=== PATIENT | male | born 1985 | race Caucasian/White ===

== ENCOUNTER → 2018-07-08 09:36 | Outpatient (CLI) | payer OTHER, SELFPAY ==
[2018-07-08 11:13] LABS: Hematocrit 44.1 % (40-54); Hemoglobin 15.2 g/dl (13.0-16.5); Mean Corp Hgb Conc 34.5 g/gl (32-36); Mean Corpuscular Hgb 32.5 pg (27.0-32.0); Mean Corpuscular Volume 94.2 fL (80-94); Mean Platelet Vol. 12.1 fl (6.2-12.0); Platelet Count 196 K/mm3 (150-450); RBC Distribution Width CV 12.9 % (11.6-14.6); RBC Distribution Width SD 43.6 fl (35.1-43.9); Red Blood Count 4.68 M/mm3 (4.6-6.2); White Blood Count 7.3 K/mm3 (4.4-11.0)
[2018-07-08 11:22] LABS: Scan Indicated on CBC? Y/N NO
[2018-07-08 11:35] LABS: Anion Gap 8 (5-15); BUN 11 mg/dL (7-18); BUN/Creat Ratio 12.4 RATIO (10-20); Calcium,Total 9.4 mg/dL (8.5-10.1); Chloride 108 mmol/L (98-107); Creatinine, Serum 0.89 mg/dL (0.70-1.30); EST Glomerular Filtration Rate 104 mL/min (>60); Est Glom Filt Rate - Afr Amer 125 mL/min (>60); Glucose 120 mg/dL (74-106); Potassium 4.2 mmol/L (3.5-5.1); Sodium Level 139 mmol/L (136-145)
== END ==
PROVIDERS: Family Provider Family Medicine; PCP Family Medicine; Visit Provider Orthopaedic Surgery
DX: Z01.818 Encounter for other preprocedural examination (principal); Z01.810 Encounter for preprocedural cardiovascular examination; F17.200 Nicotine dependence, unspecified, uncomplicated
CPT/HCPCS: 36415; 71046; 80048; 85027; 93005

== ENCOUNTER 2019-01-14 15:47 | Emergency (ER) | payer OTHER, SELFPAY ==
[2019-01-14 15:48] VITALS: BP 138/87; PULSE 103; RESP 18; TEMP 36.6; O2SAT 96; BMI 32.8
--- NOTE | 2019-01-14 16:04 | CT_ITS ---
STUDY: CT ABDOMEN AND PELVIS WITH CONTRAST REASON FOR EXAM: Male, 33 years old. Low back pain, right leg numbness. RADIATION DOSAGE (If Supplied By Facility): CTDIvol = ( 15.78 ) mGy, DLP = ( 1054.30 ) mGycm TECHNIQUE: Transaxial images were obtained from the dome of the diaphragm to the symphysis pubis without oral contrast. Isovue 300 100 IV/Oral was administered. Sagittal and coronal images were reconstructed. Individualized dose optimization techniques were used for this CT. COMPARISON: None. FINDINGS: Lung bases are clear. Visualized heart is normal. The liver is unremarkable. The gallbladder is unremarkable. The spleen and pancreas are unremarkable. The adrenal glands are normal. The kidneys are unremarkable. No stones or hydronephrosis. The aorta is normal in caliber. There is no free fluid, free air, or organized collection. No bowel obstruction. The appendix is normal. There is mild pericolonic stranding anterior to the sigmoid colon with central fat density best demonstrated on coronal and sagittal imaging. This finding is consistent with epiploic appendagitis. Urinary bladder is unremarkable. Normal abdominal wall. Normal osseous structures. CT/Abdomen/Pelvis WITH Contrast IMPRESSION: 1. Epiploic appendagitis of the sigmoid colon, otherwise unremarkable study. Electronically Signed: India Ramirez MD at 18:44 EDT Tel , Service support ,
--- NOTE | 2019-01-14 16:08 | ED.DCSUM_ITS ---
- ER Visit Summary Date of Service: 01/14/19 Chief Complaint: Back pain, abdominal pain History of Present Illness: The patient is a 33 M presenting with back pain. He states that this has been ongoing for the past 2 weeks. He does a lot of lifting at work but does not recall a specific injury. He has pain in his right low back radiating to his right leg. He denies bowel or bladder incontinence. He is able to ambulate. Denies weakness. He has tried no medication at home for this. He has an appointment with his primary care physician tomorrow. He also states he has been having right lower quadrant abdominal pain which started 2 days ago. He has nausea. He has had frequent stools. Denies fever or other complaints. Physical Examination: Vitals are stable. Patient is afebrile. Alert no acute distress. HEENT exam is unremarkable. Neck is supple. Lungs are clear and equal bilaterally. Heart is regular rate and rhythm. Abdomen is soft right lower quadrant tenderness with no rebound or guarding Back: Right lumbar paraspinal muscle tenderness with no midline tenderness. Straight leg raise negative Extremities are unremarkable. Skin is warm and dry. No focal neurologic deficit. Normal strength and sensation Remainder of exam is unremarkable. Emergency Department Course and Treatment: Patient was given morphine, Zofran IV. CBC, chemistries unremarkable. Liver enzymes show alk phos 126, ALT 75. Urinalysis unremarkable. CT abdomen pelvis shows epiploic appendagitis of the sigmoid colon, otherwise unremarkable study. He was given Toradol, Valium. He is resting comfortably on reevaluation. He has a scheduled appointment with his primary care physician tomorrow. He is advised to keep this appointment. Advised return to ED for worsening complaints. Disposition: Discharge home Impression: Lumbar strain, epiploic appendagitis This note was generated with [employer] dictation software. It may contain incorrect words, spelling, and punctuation that were not noted in review of the chart prior to signing ED Disposition - Plan for ED Patient: Referrals: Benito Trammell MD [Primary Care Provider] -
[2019-01-14 16:28] LABS: Absolute Lymphocyte Count 2.67 X10^3/ul (0.83-4.51); Absolute Neutrophil Count 6.2 X10^3/uL (2.0-7.7); Basophil# 0.03 X10^3/uL; Basophil% 0.3 % (0-1); Eosinophil# 0.19 X10^3/uL; Hematocrit 48.4 % (40-54); Hemoglobin 15.9 g/dl (13.0-16.5); Lymphocyte # 2.67 X10^3/ul (4.0); Lymphocyte % 27.6 % (19-41); Mean Corp Hgb Conc 32.9 g/gl (32-36); Mean Corpuscular Hgb 31.5 pg (27.0-32.0); Monocyte# 0.61 X10^3/uL; Monocyte% 6.3 % (0-10); Neutrophil # 6.15 X10^3/uL (2.7-7.7); Neutrophil % 63.6 % (47-70); POSITIVE COUNT NO; POSITIVE DIFFERENTIAL NO; POSITIVE MORPHOLOGY NO; Platelet Count 205 K/mm3 (150-450); RBC Distribution Width SD 45.4 fl (35.1-43.9); Red Blood Count 5.04 M/mm3 (4.6-6.2); White Blood Count 9.7 K/mm3 (4.4-11.0)
[2019-01-14] MEDS: 0.9% Normal Saline 1,000 ML 1000 ML IV (16:30)
[2019-01-14] MEDS: Morphine 4 MG/ML Syringe IV (16:31)
[2019-01-14] MEDS: Ondansetron 4 MG/2 ML Vial IV (16:31)
[2019-01-14 16:41] LABS: AST(SGOT) 36 U/L (15-37); Alanine Aminotransfer ALT/SGPT 75 U/L (16-61); Albumin, Serum 3.7 g/dL (3.2-5.0); Alkaline Phosphatase 126 U/L (45-117); Anion Gap 8 (5-15); BUN 14 mg/dL (7-18); BUN/Creat Ratio 14.3 RATIO (10-20); Calcium,Total 8.8 mg/dL (8.5-10.1); Chloride 109 mmol/L (98-107); Creatinine, Serum 0.98 mg/dL (0.70-1.30); EST Glomerular Filtration Rate 92 mL/min (>60); Est Glom Filt Rate - Afr Amer 112 mL/min (>60); Estimated Creatinine Clearance 101.79 ml/min; Globulin 3.8 g/dL (2.2-4.2); Glucose 94 mg/dL (74-106); Lipase 132 U/L (73-393); Potassium 3.6 mmol/L (3.5-5.1); Protein, Total 7.5 g/dL (6.4-8.2); Sodium Level 140 mmol/L (136-145)
[2019-01-14 16:41] LABS: Red Blood Cells-Urine 0 SEEN /hpf (0-5); Squamous Epithelial Cells - UA 0 SEEN /hpf (0-5)
[2019-01-14 16:54] LABS: Color, Urine Yellow (Yellow); Glucose, Dipstick Normal (Normal); Ketone-Dipstick 5 mg/dl (Negative); Leukocyte Esterase-Dipstick 25 /ul (Negative); Nitrite-Dipstick Negative (Negative); Occult Blood-Urine Negative /ul (Negative); Protein-Dipstick Negative (Negative); Specific Gravity, Urine 1.025 (1.002-1.030); Urine Bilirubin Dipstick Negative (Negative); Urine Clarity Clear (Clear); Urine Urobilinogen Normal (Normal)
[2019-01-14 17:09] LABS: Bacteria 1+ /hpf (None Seen); Mucous, Urine 1+ /hpf (<or=2+); Renal Epithelial Cells 0 SEEN /hpf (0-5); White Blood Cells 0-5 SEEN /hpf (0-5)
[2019-01-14 18:11] VITALS: BP 129/76; PULSE 99; RESP 18; O2SAT 99
[2019-01-14] MEDS: Ketorolac 30 MG/ML Syringe IV (18:59)
[2019-01-14] MEDS: diazePAM 5 MG Tablet PO (19:00)
--- NOTE | 2019-01-14 19:31 | DCINST.ED_ITS ---
ED Disposition - Plan for ED Patient: Instructions: ED Sprain Strain Lumbar Prescriptions: Hydrocodone Bitart/Apap 5-325 [[place] 5MG-325MG] 1 tablet PO Q6H PRN PRN 3 Days #10 tablet PRN Reason: Pain Referrals: Benito Trammell MD [Primary Care Provider] -
[2019-01-14 19:47] VITALS: BP 122/73; PULSE 78; RESP 18; O2SAT 96
== END 2019-01-14 19:49 | disposition home or self-care (01) ==
LOC: ED 16:23
PROVIDERS: Emergency Provider Emergency Medicine; Family Provider Family Medicine; PCP Family Medicine
DX: S39.012A Strain of muscle, fascia and tendon of lower back, initial encounter (principal); X58.XXXA Exposure to other specified factors, initial encounter; Y93.9 Activity, unspecified; Y92.9 Unspecified place or not applicable; K63.89 Other specified diseases of intestine; Z72.0 Tobacco use
CPT/HCPCS: 74177; 80053; 81001; 83690; 85025; 96374; 96375; 99284; J7030; Q9967; A4216; J2405

== ENCOUNTER → 2019-01-29 13:32 | Outpatient (CLI) | payer OTHER, SELFPAY ==
[2019-01-14 15:48] VITALS: BMI 32.8
--- NOTE | 2019-01-29 13:35 | CT_ITS ---
STUDY: CT ABDOMEN AND PELVIS WITH CONTRAST REASON FOR EXAM: Male, 33 years old. Epiploic appendicitis follow-up RADIATION DOSAGE (If Supplied By Facility): CTDIvol = ( 15.70 ) mGy, DLP = ( 1100.16 ) mGycm TECHNIQUE: Transaxial images were obtained from the dome of the diaphragm to the symphysis pubis without oral contrast. 100ML IV/Oral Isovue 300 was administered. Sagittal and coronal images were reconstructed. Individualized dose optimization techniques were used for this CT. COMPARISON: CT abdomen and pelvis 01/14/2019. FINDINGS: The visualized lung bases are unremarkable. The visualized portions of the heart are within normal limits. Normal liver. Normal gallbladder and extrahepatic biliary system. Normal spleen. Normal pancreas. Normal bilateral adrenal glands. Normal right kidney. Normal left kidney. Normal visualized stomach. Normal small intestine. Again seen is a focal region of pericolonic stranding with central fat density adjacent to the sigmoid colon consistent with epiploic appendigitis, not significantly changed from prior exam. There is no bowel wall thickening. The appendix is visualized and appears normal. Trace aortic calcifications. Normal inferior vena cava. Normal retroperitoneum. Normal urinary bladder. There are calcifications and/or surgical clips in the inferior inguinal canals. Normal osseous structures. CT/Abdomen/Pelvis WITH Contrast IMPRESSION: Again seen is epiploic appendagitis of the sigmoid colon, not significantly changed. Electronically Signed: Henrietta Cat, at 14:23 EDT Tel , Service support ,
== END ==
PROVIDERS: Family Provider Family Medicine; PCP Family Medicine; Referring Provider Surgery; Visit Provider Surgery
DX: K52.9 Noninfective gastroenteritis and colitis, unspecified (principal); K63.89 Other specified diseases of intestine; R10.31 Right lower quadrant pain
CPT/HCPCS: 74177; Q9967

== ENCOUNTER 2019-02-02 09:19 | Day surgery (SDC) | payer OTHER, SELFPAY ==
[2019-01-29 14:33] VITALS: BMI 32.8
--- NOTE | 2019-02-02 08:09 | HP.PCM_ITS ---
History and Physical Intake Visit Reasons: f/u Ct and abd pain Chief Complaint: RLQ pain into right back [employer] Required: No Is patient in pain?: Yes Allergies No Known Allergies Allergy (Verified 01/30/19 08:22) Medications Bupropion HCl [Bupropion Xl] 150 mg PO BID 01/14/19 [History Confirmed 01/30/19] Clonidine HCl [Catapres] 0.1 mg PO BID 01/14/19 [History Confirmed 01/30/19] oxycodone 5 mg capsule 5 mg PO QHS 01/29/19 [History Confirmed 01/30/19] Nicotine [Nicotine Patch] 1 ea TD DAILY 01/30/19 [History Confirmed 01/30/19] PFSH Medical History Bipolar 1 disorder (Acute) Depression (Acute) Difficulty controlling anger (Acute) Sleep apnea (Acute) Surgical History History of repair of anterior cruciate ligament of right knee (Acute) History of shoulder surgery (Acute) History of surgery on left wrist (Acute) History of tonsillectomy (Acute) Family History Brother Colon cancer, Onset Age: 29 Father Cancer liver Kidney disease Social History Smoking Status: Light Smoker (<10/day) HPI HPI HPI: FRANCES JONES, is a 33 M who presents to the office today for right lower quadrant pain and right back pain. The patient was initially seen in the emergency room complaining of right back pain. CT of the abdomen and pelvis was performed which showed sigmoid epiploic appendage otitis. The patient notes that the pain is getting worse and he is not able to complete daily tasks. He is not complaining of left-sided abdominal pain. He is not having any nausea or vomiting. With some further questioning he did say that the day this happened and started he felt a pop in his back. He says he was sitting down and when he stood up he felt his back pop and that is on the right back and right abdominal pain started. The patient also notes that he has a brother who was diagnosed with stage IV colon cancer at age 29. He has never had a colonoscopy and denies any blood in his stool. ROS General General: No weight change, appetite, fatigue, colon cancer, breast cancer or weakness HEENT HEENT: No difficulty swallowing, eye injury, eye surgery, swollen glands or hoarseness Endo Endocrine: No thyroid disease, diabetes mellitus, thyroid cancer, Hair loss, heat intolerance or cold intolerance Cardio Cardiovascular: No murmur, pacemaker, heart disease, atrial fibrillation, high blood pressure, heart attack, heart stent, palpitations, shortness of breat with exertion or chest pain Psych Psychiatric: Yes depression; no anxiety or hearing voices Additional Details: bipolar, anger management issues Resp Respiratory: No shortness of breath, Yes sleep apnea, No cough, No COPD, No asthma, No emphysema, No wheezing Gastro Gastrointestinal: Yes abdominal pain, No nausea or vomiting, No diarrhea, No constipation, No blood in stool, No acid reflux, No hemorrhoids, No ulcers, No gallbladder problem, No black,tarry stools [place] Hematologic: No blood thinners, No blood disorders, No bleeding, No anemia, No blood clots Neuro Neurologic: No weakness Exam Const General: cooperative Orientation: alert, oriented x3 Resp Effort & Inspection: normal respiratory effort Auscultation: clear to auscultation bilaterally Cardio Rate: regular rate Rhythm: regular rhythm Heart Sounds: no murmurs GI Inspection: non-distended Palpation: soft, nontender Assessment & Plan Problems 1. Right lower quadrant pain R10.31 2. Family history of colon cancer requiring screening colonoscopy Z80.0 3. Family history of malignant neoplasm of colon in relative diagnosed when younger than 50 years of age Z80.0 Plan 1. Repeated a CT scan of his abdomen and pelvis. CT scan shows continued epiploic appendagitis of the sigmoid colon with no other abnormalities. Patient also has stool in the colon and this could be all from constipation but after hearing that it happened when he felt a pop in his back I am concerned that this is nerve impingement. I will take the patient for colonoscopy as he has had a brother diagnosed at age 29 with stage IV colon cancer and he should have a screening colonoscopy. If the bowel prep relieves his pain then it is likely due to constipation. He is not having any pain over the area of epiploic appendagitis. I will also refer him to a spine surgeon for evaluation of nerve injury. I explained endoscopy in detail to the patient. I explained the risks including but not limited to stroke or heart attack with anesthesia, perforation of the GI tract, bleeding, infection. I explained that any of these could necessitate further emergency surgery. The patient understands and all questions were answered sufficiently. The patient wishes to proceed with procedure. Nico Matthews MD Pager: [facility] [address] [facility], [address] [place] [id number] Office: I have re-examined the patient. There are no clinical changes since date of exam Nico Matthews MD Pager: [facility], [address] [place] [id number] Office:
[2019-02-02 09:45] VITALS: BP 130/76; PULSE 74; RESP 16; TEMP 36.9; O2SAT 97; BMI 32.9
[2019-02-02 11:21] VITALS: BP 105/57; BP 130/76; PULSE 76; RESP 16; TEMP 36.9; O2SAT 95
--- NOTE | 2019-02-02 11:22 | OP.ENDO_ITS ---
02/02/2019 Benito Trammell Re : Colonoscopy procedure for Ajit Zhu Dear Valeri This procedure was performed on Saturday, February 02, 2019. My impressions and recommendations are as follows: Impressions : - The entire examined colon is normal on direct and retroflexion views. - No specimens collected. Recommendations : - Discharge patient to home. - Resume previous diet. - Continue present medications. - Await pathology results. - Repeat colonoscopy in 10 years for screening purposes. My findings are described in the full procedure note, which is enclosed. If I can be of further assistance, please feel free to contact me at Doctor phone number(s): , Work: . Sincerely, Nico Matthews MD 02/02/2019 11:22:03 AM This report has been signed electronically.
[2019-02-02 11:25] VITALS: BP 105/83; BP 130/76; PULSE 77; RESP 16; O2SAT 96
[2019-02-02 11:30] VITALS: BP 115/70; BP 130/76; PULSE 82; RESP 16; O2SAT 96
[2019-02-02 11:35] VITALS: BP 122/62; BP 130/76; PULSE 67; RESP 16; TEMP 36.4; O2SAT 96
[2019-02-02 11:57] VITALS: BP 130/76
== END 2019-02-02 12:06 | disposition home or self-care (01) ==
LOC: EN 09:20 → AC 09:23
PROVIDERS: Family Provider Family Medicine; PCP Family Medicine; Referring Provider Family Medicine; Visit Provider Surgery
PROC: 0DJD8ZZ Inspection of Lower Intestinal Tract, Via Natural or Artificial Opening Endoscopic (ICD-10-PCS; CPT 45378; principal; 2019-02-02 10:55)
DX: Z12.11 Encounter for screening for malignant neoplasm of colon (principal); R10.31 Right lower quadrant pain; Z80.0 Family history of malignant neoplasm of digestive organs; F32.9 Major depressive disorder, single episode, unspecified; F17.200 Nicotine dependence, unspecified, uncomplicated
CPT/HCPCS: 45378; J7120

== ENCOUNTER → 2019-03-12 15:43 | Outpatient (CLI) | payer OTHER, SELFPAY ==
--- NOTE | 2019-03-12 15:50 | MRI_ITS ---
STUDY: MRI LUMBAR SPINE WITHOUT CONTRAST REASON FOR EXAM: Male, 33 years old. Pain radiating to right lower extremity TECHNIQUE: Standardized fat and water weighted pulse sequences were obtained in the sagittal and axial planes. COMPARISON: None FINDINGS: T12-L1: Normal endplates. Normal disc height, hydration and morphology. Normal bilateral facet joints. Normal central canal and bilateral lateral recesses. Normal bilateral intervertebral neural foramina. Normal lumbar lordosis. There is no substantial scoliosis. Normal conus medullaris that terminates at T12-L1 L1-2: Normal endplates. Normal disc height, hydration and morphology. Normal bilateral facet joints. Normal central canal and bilateral lateral recesses. Normal bilateral intervertebral neural foramina. L2-3: Normal endplates. Normal disc height, hydration and morphology. Normal bilateral facet joints. Normal central canal and bilateral lateral recesses. Normal bilateral intervertebral neural foramina. L3-4: Mild endplate spurring.. Normal disc height, desiccation and minor annular bulge.. Normal bilateral facet joints. Normal central canal and bilateral lateral recesses. Mild bilateral neural foraminal encroachment. L4-5: Normal endplates. Normal disc height, desiccation and mild annular bulge. Normal bilateral facet joints. Normal central canal and bilateral lateral recesses. Mild bilateral neural foraminal encroachment. L5-S1: Normal endplates. Normal disc height, desiccation and moderate annular bulge in association with prominent right posterolateral/foraminal disc protrusion.. Mild facet arthropathy.. Mild narrowing of the central canal. Moderate left lateral recess and neural foraminal stenosis with more severe narrowing on the right. Normal visualized sacral ala. Normal visualized paraspinous soft tissue structures. MRI/Spine Lumbar (Routine) IMPRESSION: Mild spinal stenosis at L3-4 and L4-5 secondary to bulging of the annuli. More severe spinal stenosis at L5-S1 greater on the right secondary to bulging annulus right posterolateral/foraminal disc protrusion and facet arthropathy Electronically Signed: Mario Lozano MD at 16:56 EDT , Service support ,
--- NOTE | 2019-03-12 15:55 | RAD_ITS ---
STUDY: X-RAY - LUMBAR SPINE REASON FOR EXAM: Male, 33 years old. Pain TECHNIQUE: 4 view(s) of the lumbar spine were obtained. COMPARISON: None FINDINGS: There is no evidence of fracture or dislocation in the lumbar spine. There is mild retrolisthesis of L3 on L4 with extension. The vertebral body heights and disc spaces are well-maintained. Mild osteophytosis is present from L3 through L5. RAD/L/S Spine Min 4 Views IMPRESSION: No fracture or dislocation in the lumbar spine. Mild osteophytosis from L3 through L5. Mild retrolisthesis of L3 on L4 with extension. Electronically Signed: Mario Castellanos, at 16:44 EDT Tel , Service support ,
== END ==
PROVIDERS: Family Provider Family Medicine; PCP Family Medicine; Referring Provider Neurological Surgery; Visit Provider Neurological Surgery
DX: M54.41 Lumbago with sciatica, right side (principal); M54.16 Radiculopathy, lumbar region
CPT/HCPCS: 72110; 72148

== ENCOUNTER 2021-03-27 16:14 | Emergency (ER) | payer MEDICARE, MEDICAID, SELFPAY ==
[2021-03-27 16:14] VITALS: BP 141/87; PULSE 94; RESP 15; TEMP 37.1; O2SAT 100; BMI 34.7
--- NOTE | 2021-03-27 16:29 | CT_ITS ---
HISTORY: trauma EXAMINATION: CT Spine Thoracic W/O Contrast Injection TECHNIQUE: Helically acquired images were obtained of the thoracic spine. 2D reformats were reviewed. A radiation dose optimization technique was used for this scan. IV Contrast dosage and agent: COMPARISON: None FINDINGS: VERTEBRAE: No fracture. No discrete lytic or blastic abnormality observed. VERTEBRAL ALIGNMENT: Unremarkable. There is preservation of the normal thoracic kyphosis. DISCS: Disc heights are preserved. VISUALIZED THORAX: Visualized thoracic aorta is nondilated. Lung trujillo are clear. CT/Spine Thoracic without Contras IMPRESSION: No evidence of acute thoracic spinal fracture or spondylolisthesis. Individualized dose optimization techniques were used for this CT. at 1712 Reported and signed by: González Jackson MD Electronically Signed: González Jackson MD at 17:11 EDT Tel , Service support ,
--- NOTE | 2021-03-27 16:29 | CT_ITS ---
HISTORY: trauma EXAMINATION: CT Chest W/O Contrast Injection TECHNIQUE: Helically acquired images were obtained of the chest. A radiation dose optimization technique was used for this scan. IV Contrast dosage and agent: None. COMPARISON: None FINDINGS: LUNGS, PLEURA AND LARGE AIRWAYS: Bibasilar dependent changes without masses, contusions, consolidations, or edema. No pleural effusion or thickening. No pneumothorax. THYROID: No thyroid lesions. HEART AND PERICARDIUM: Heart size is normal. No pericardial effusion. VESSELS: Thoracic aorta is not dilated. MEDIASTINUM AND URBANO: No mediastinal or hilar adenopathy. Esophagus is unremarkable. No hiatal hernia. UPPER ABDOMEN: No acute pathology. BONES: No acute abnormality. CT/Chest without Contrast IMPRESSION: Negative CT chest without contrast. Individualized dose optimization techniques were used for this CT. at 1709 Reported and signed by: González Jackson MD Electronically Signed: González Jackson MD at 17:08 EDT Tel , Service support ,
--- NOTE | 2021-03-27 16:29 | CT_ITS ---
HISTORY: trauma TECHNIQUE: Multiple axial images were obtained of the brain without intravenous contrast. A radiation dose optimization technique was used for this scan. IV Contrast dosage and agent: None. COMPARISON: None FINDINGS: # of images incl. paperwork: [id number] PARANASAL SINUSES AND MASTOID AIR CELLS: No acute paranasal sinus disease. INTRACRANIAL HEMORRHAGE: None. BRAIN PARENCHYMA: No CT evidence of stroke. No intracranial masses. There is preservation of the fairchild/white matter interface. Posterior fossa structures are unremarkable. CSF SPACES: Appropriate for age. There is no hydrocephalus. MASS EFFECT: None. CALVARIUM: Intact. CT/Brain/Head without Contrast IMPRESSION: No acute intracranial findings. Individualized dose optimization techniques were used for this CT. at 1659 Reported and signed by: González Jackson MD Electronically Signed: González Jackson MD at 16:58 EDT Tel , Service support ,
--- NOTE | 2021-03-27 16:29 | CT_ITS ---
HISTORY: trauma EXAMINATION: CT Spine Cervical W/O Contrast Injection TECHNIQUE: Helically acquired images were obtained of the cervical spine. 2D reformatted images were reviewed. A radiation dose optimization technique was used for this scan. IV Contrast dosage and agent: None. COMPARISON: None FINDINGS: VERTEBRAE: No fracture or traumatic subluxation. No discrete lytic or blastic abnormality observed. Normal alignment. Normal craniocervical junction and cervicothoracic junction. DISCS and SPINAL CANAL: Disc heights are preserved. No critical stenosis. NECK SOFT TISSUES: No prevertebral soft tissue swelling. There is no cervical adenopathy. LUNG APICES: Clear. CT/Spine Cervical without Contras IMPRESSION: No evidence of acute cervical spinal fracture. Individualized dose optimization techniques were used for this CT. at 1704 Reported and signed by: González Jackson MD Electronically Signed: González Jackson MD at 17:03 EDT Tel , Service support ,
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
== END 2021-03-27 17:45 | disposition home or self-care (01) ==
PROVIDERS: Emergency Provider Emergency Medicine
DX: S10.93XA Contusion of unspecified part of neck, initial encounter (principal); V89.2XXA Person injured in unspecified motor-vehicle accident, traffic, initial encounter; Y93.89 Activity, other specified; Y92.9 Unspecified place or not applicable; Y99.9 Unspecified external cause status
CPT/HCPCS: 70450; 71250; 72125; 72128; 99285

== ENCOUNTER 2025-01-05 11:28 | Emergency (ER) | payer MEDICARE, MEDICAID, SELFPAY ==
[2025-01-05 11:29] VITALS: BP 134/76; PULSE 82; RESP 16; TEMP 36.8; O2SAT 98; BMI 33.5
[2025-01-05 13:15] LABS: Mucous, Urine 0 SEEN /hpf (<or=2+); Squamous Epithelial Cells - UA 0 SEEN /hpf (0-5)
[2025-01-05 13:19] LABS: Absolute Lymphocyte Count 2.76 X10^3/uL (0.83-4.51); Absolute Neutrophil Count 6.7 X10^3/uL (2.0-7.7); Basophil# 0.07 X10^3/uL; Basophil% 0.7 % (0-1); Eosinophil# 0.18 X10^3/uL; Eosinophils% 1.7 % (0-5); Hematocrit 47.5 % (40-54); Hemoglobin 16.1 g/dL (13.0-16.5); Lymphocyte # 2.76 X10^3/ul (0.83-4.51); Lymphocyte % 26.1 % (19-41); Mean Corp Hgb Conc 33.9 g/dL (32-36); Mean Corpuscular Hgb 32.7 pg (27.0-32.0); Mean Corpuscular Volume 96.3 fL (80-94); Mean Platelet Vol. 11.9 fl (6.2-12.0); Monocyte# 0.81 X10^3/uL; Monocyte% 7.7 % (0-10); NRBC Flagged by Analyzer 0 % (0-5); Neutrophil % 63.4 % (47-70); POSITIVE MORPHOLOGY YES; Platelet Count 191 K/mm3 (150-450); RBC Distribution Width SD 46.5 fl (35.1-43.9); Red Blood Count 4.93 M/mm3 (4.6-6.2); White Blood Count 10.6 K/mm3 (4.4-11.0)
[2025-01-05 13:23] LABS: Color, Urine Yellow (Yellow); Glucose, Dipstick Normal (Normal); Ketone-Dipstick Negative (Negative); Leukocyte Esterase-Dipstick 25 /ul (Negative); Nitrite-Dipstick Negative (Negative); Occult Blood-Urine Negative /ul (Negative); Protein-Dipstick 15 mg/dl (Negative); Specific Gravity, Urine 1.025 (1.002-1.030); Urine Bilirubin Dipstick Negative (Negative); Urine Clarity Clear (Clear); Urine Urobilinogen 1 mg/dl (Normal)
[2025-01-05 13:42] LABS: ALB/GLOB Ratio 1.5 RATIO (0.9-2.4); AST(SGOT) 24 U/L (<=37); Alanine Aminotransfer ALT/SGPT 34 U/L (<=46); Albumin, Serum 4.1 g/dL (3.5-5.0); Alkaline Phosphatase 90 U/L (40-129); Anion Gap 10 (5-15); BUN 11 mg/dL (4-19); BUN/Creat Ratio 12.2 RATIO (10-20); Calcium,Total 9.7 mg/dL (7.6-11.0); Carbon Dioxide 21.5 mmol/L (21.0-32.0); Chloride 109 mmol/L (98-108); Creatinine, Serum 0.88 mg/dL (0.70-1.20); EST Glomerular Filtration Rate 111 (>60); Estimated Creatinine Clearance 126.64 ml/min (50-250); Globulin 2.8 g/dL (2.2-4.2); Glucose 100 mg/dL (70-99); Potassium 4.3 mmol/L (3.3-5.1); Protein, Total 6.9 g/dL (5.9-8.4); Sodium Level 141 mmol/L (133-145); Total Bilirubin 0.25 mg/dL (0.00-1.30)
[2025-01-05 14:02] LABS: Differential Indicated SCAN CRITERIA MET
[2025-01-05 14:03] LABS: Platelet Estimate A (ADEQ); Reactive Lymphocyte 2+
[2025-01-05 14:04] LABS: Red Blood Cells-Urine 0 SEEN /hpf (0-5); White Blood Cells 0-5 SEEN /hpf (0-5)
[2025-01-05 14:05] LABS: Bacteria RARE /hpf (None Seen)
[2025-01-05] MEDS: Ketorolac 15 MG/ML Vial IV (14:14)
[2025-01-05] MEDS: Ondansetron 4 MG/2 ML Vial IV (14:14)
[2025-01-05 14:16] VITALS: BP 130/77; PULSE 67; RESP 14; O2SAT 99
--- NOTE | 2025-01-05 14:25 | CT_ITS ---
PROCEDURE: ABDOMEN/PELVIS W IV CONT ONLY REASON FOR EXAM: Right-sided flank pain with nausea. TECHNIQUE: Abdomen and pelvis CT with intravenous contrast. No oral contrast. IV CONTRAST: 100 cc of Isovue-300. COMPARISON: Comparison is made with prior study of January 29, 2019. FINDINGS: Lung bases: Clear Liver: Unremarkable. Gallbladder: Unremarkable. Spleen: Unremarkable. Pancreas: Unremarkable. Adrenals: Unremarkable. Kidneys: 2 mm nonobstructive calculus in the mid pole calyx of the right kidney. Bladder: Unremarkable.. Central prostatic calcification. Reproductive Organs: Unremarkable. Bowel: Colonic diverticulosis without diverticulitis. Appendix: Normal. Lymph nodes: No suspicious lymph node enlargement. Vasculature: Mild diffuse atherosclerotic calcifications are noted. Peritoneum / Retroperitoneum: No ascites. No free air. Small umbilical hernia containing fat. Bones: Degenerative changes of the spine. A spinal cord stimulator device is seen. CT/Abdomen/Pelvis W IV Cont ONLY IMPRESSION: Nonobstructive calculus in the midpole calyx of the right kidney. No evidence of urinary tract obstruction. Sigmoid diverticulosis. One or more dose reduction techniques were used (e.g., Automated exposure contr ol, adjustment of the mA and/or kV according to patient size, use of iterative reconstruction technique). Reading Location: [facility]
[2025-01-05 15:00] VITALS: BP 117/74; RESP 18; O2SAT 97
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
--- NOTE | 2025-01-05 16:40 | CM.ED ---
Social Work Reason for visit: no PCP SW entered room, introduced self to patient and reason for visit. Patient declined provider resource stating he does have a PCP, he just could not remember their name when asked. No further needs identified at this time. Iqra Kimball, SSN/SSBN ASSISTANT NAVIGATOR, PERINATAL SPECIALIST
== END 2025-01-05 15:40 | disposition home or self-care (01) ==
PROVIDERS: Emergency Provider Emergency Medicine; Visit Provider Emergency Medicine
DX: R10.31 Right lower quadrant pain (principal); F31.9 Bipolar disorder, unspecified; R03.0 Elevated blood-pressure reading, without diagnosis of hypertension; G47.30 Sleep apnea, unspecified; F17.210 Nicotine dependence, cigarettes, uncomplicated
CPT/HCPCS: 74177; 80053; 81001; 85025; 96374; 96375; 96376; 99283; Q9967; A4216; J2405

== ENCOUNTER → 2025-02-11 | Outpatient (CLI) | payer MEDICARE, MEDICAID, SELFPAY ==
[2025-02-11 10:37] LABS: Lithium 0.24 mmol/L (0.60-1.20)
[2025-02-11 10:44] LABS: ALB/GLOB Ratio 1.5 RATIO (0.9-2.4); AST(SGOT) 33 U/L (<=37); Alanine Aminotransfer ALT/SGPT 39 U/L (<=46); Albumin, Serum 4.3 g/dL (3.5-5.0); Alkaline Phosphatase 95 U/L (40-129); Anion Gap 11 (5-15); BUN 9 mg/dL (4-19); BUN/Creat Ratio 8.9 RATIO (10-20); Calcium,Total 9.6 mg/dL (7.6-11.0); Carbon Dioxide 19.5 mmol/L (21.0-32.0); Chloride 107 mmol/L (98-108); Creatinine, Serum 1.02 mg/dL (0.70-1.20); EST Glomerular Filtration Rate 95 (>60); Globulin 2.9 g/dL (2.2-4.2); Glucose 111 mg/dL (70-99); Potassium 4.3 mmol/L (3.3-5.1); Protein, Total 7.2 g/dL (5.9-8.4); Sodium Level 137 mmol/L (133-145); Total Bilirubin 0.51 mg/dL (0.00-1.30)
== END | disposition home or self-care (01) ==
PROVIDERS: Referring Provider Psychiatry & Neurology Psychiatry; Visit Provider Psychiatry & Neurology Psychiatry
DX: Z79.899 Other long term (current) drug therapy (principal)
CPT/HCPCS: 36415; 80053; 80178; 84443

== ENCOUNTER 2025-04-21 10:52 | Emergency (ER) | payer MEDICARE, MEDICAID, SELFPAY ==
[2025-04-21 10:52] VITALS: BP 131/74; PULSE 71; RESP 16; TEMP 36.1; O2SAT 99; BMI 32.8
--- NOTE | 2025-04-21 11:06 | ED.VIS.BACK ---
HPI History of Present Illness Chief Complaint: Back Detail of Chief Complaint: Back and neck pain Informant: patient Narrative Narrative: Patient presents to the emergency department with atraumatic back and neck pain that started 2 weeks ago. 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 At times he has pain into the left shoulder and he has had some numbness and tingling to the bicep area. He denies weakness of the extremities. He has history of chronic back pain and had a spinal stimulator placed years ago and really has been doing quite well since that time. He does not see pain management. [facility] Medical History Difficulty controlling anger Bipolar 1 disorder Sleep apnea Depression Home Medications Medication Instructions Recorded Last Taken Type bupropion HCl 150 mg 24 hr tablet, 150 mg PO BID 01/14/19 Unknown History extended release clonidine HCl 0.1 mg tablet 0.1 mg PO BID 01/14/19 Unknown History gabapentin 100 mg capsule 100 mg PO TID 03/27/21 Unknown History lamotrigine 150 mg tablet 150 mg PO DAILY 03/27/21 Unknown History naproxen 500 mg tablet (Naprosyn) 500 mg PO BID #20 tabs 03/27/21 Unknown Rx cyclobenzaprine 10 mg tablet 10 mg PO TID PRN Muscle Spasm #20 04/21/25 Unknown Rx TABLETS hydrocodone-acetaminophen 5-325mg 1 tab PO Q4H PRN PRN Pain 2 days 04/21/25 Unknown Rx 5mg-325mg #10 TABLETS prednisone 20 mg tablet 20 mg PO BID #10 tabs 04/21/25 Unknown Rx Allergy/AdvReac Type Severity Reaction Status Date / Time No Known Allergies Allergy Verified 04/21/25 10:52 Family History Brother Colon cancer, Onset Age: 29 Father Cancer liver Kidney disease Surgical History History of shoulder surgery History of repair of anterior cruciate ligament of right knee History of tonsillectomy History of surgery on left wrist Social History Smoking Status: Current every day smoker tobacco type: cigarettes ROS ROS ED Review of Systems ROS Unobtainable: other Constitutional Constitutional ED: Reports lethargy; Denies chills, fever(s), sweats or weight loss Eyes Eyes: Denies blurry vision, change in vision or diplopia ENT ENT ED: Denies rhinorrhea or sore throat Cardiovascular Cardiovascular: Denies chest pain, orthopnea or racing heartbeat Respiratory/Chest Respiratory/Chest: Reports dyspnea and dyspnea on exertion; Denies cough, orthopnea or sputum Gastrointestinal Gastrointestinal: Denies abdominal pain, diarrhea, nausea or vomiting Genitourinary Genitourinary ED: Denies dysuria, hematuria or urinary frequency Musculoskeletal Musculoskeletal: Reports back pain and neck pain; Denies arthralgias or myalgias Integumentary Denies abscess, Abrasions or rash Neurologic Neurologic: Denies headache(s) or weakness Psychiatric Psychiatric: Denies anxiety, depression or suicidal thoughts Endocrine Endocrinology: Denies polydipsia, polyphagia or polyuria Hematologic/Lymphatic Hematologic/Lymphatic: Denies easy bleeding, easy bruising or lymphadenopathy Allergic/Immunologic Allergic/Immunologic ED: Denies mouth swelling, tongue swelling or urticaria EXAM Physical Exam Const Vital Signs: 04/21/25 10:52 Temperature 97 F L Temperature Source Temporal Pulse Rate 71 Respiratory Rate 16 Blood Pressure 131/74 H Blood Pressure Mean 93 Pulse Ox 99 Oxygen Delivery Method Room Air Positive well nourished and well developed General Appearance ED: well developed and NAD HEENT Reports TM's clear and moist mucous membranes normocephalic and atraumatic; Negative for trauma or tenderness Tympanic Membrane ED: Yes TM's clear Eyes PERRL and EOMs intact bilaterally General Eye ED: Negative for pale conjunctiva or scleral icterus Neck no lymphadenopathy, supple and no JVD Neck Narrative: Diffuse tenderness to palpation over the C-spine as well as the left cervical paraspinal musculature. No bony depressions on exam. There is no erythema or warmth noted. No abnormal swelling noted. General: Negative for tenderness Chest Wall inspection of chest normal and palpation of chest normal Chest: Negative for tenderness Resp normal respiratory effort and clear to auscultation bilaterally Effort and Inspection: Negative for respiratory distress or pain with movement Auscultation: Negative for rhonchi, wheezes or diminished lung sounds Cardio regular rate, regular rhythm, S1 normal heart sound, S2 normal heart sound and no murmurs Peripheral Pulses: pulses 2+ throughout GI normal to inspection, nondistended, normoactive bowel sounds, soft to palpation, non-tender, non-distended and no masses Back/Spine no CVA tenderness Back/Spine Narrative: Diffuse tenderness palpation over the left thoracic paraspinal musculature. Tenderness over the left trapezius that seems to reproduce pain. No weakness in the left upper extremity. Normal sensation to light touch. Deep tendon reflexes plus 2 out of 4 bilaterally at the bicep, tricep, brachioradialis. Extremity normal to inspection General Extremety ED: Negative for edema General Extremity: Negative for edema Neuro oriented x3, CN's II-XII intact bilaterally, no sensory deficits noted and gait normal Sensorium / Orientation: awake, alert, oriented to person, oriented to place and oriented to time Motor Exam: strength 5/5 throughout and strength abnormal Psych mental status grossly normal Skin no rashes or lesions noted and no wounds MDM MDM MDM Narrative Medical decision making narrative: Patient presents with neck and back pain x 2 weeks without trauma. Suspect possibly cervical radiculopathy. Plain x-rays obtained of the cervical spine show degenerative disc disease at C5-6 and loss of the normal lordosis. This point we will start on prednisone and give a prescription for [place] and Flexeril. Will refer to orthopedics for follow-up. I do not think he needs emergent MRI as he has no weakness. Radiography Diagnostic Testing: Clinical Impression(s) from Imaging Studies Cervical Spine X-Ray 04/21/25 11:18 IMPRESSION: There is loss of the lordosis. There is degenerative disc disease at C5-6. Reading Location: [facility] Three-view x-rays of the cervical spine obtained interpreted by myself no evidence of fracture or lytic lesions. Radiology agreement felt there was loss of the lordosis send or degenerative disc disease at C5-6. Discharge Plan Triage Chief Complaint: Back ED Provider: Binh Mckee Dx/Rx/DC Orders Clinical Impression: Acute neck pain, Back pain Instructions: ED Back Pain (Acute or Chronic), ED Neck Pain Prescriptions: New hydrocodone-acetaminophen 5-325 mg tablet 1 tab PO Q4H PRN PRN (Reason: Pain) 2 Days Qty: 10 0RF cyclobenzaprine 10 mg tablet 10 mg PO TID PRN (Reason: Muscle Spasm) Qty: 20 0RF prednisone 20 mg tablet 20 mg PO BID Qty: 10 0RF No Action clonidine HCl 0.1 MG tablet 0.1 mg PO BID bupropion HCl 150 MG tablet extended release 24 hr 150 mg PO BID lamotrigine 150 mg tablet 150 mg PO DAILY Patient Comments: TAKE 1 TABLET BY MOUTH IN THE MORNING gabapentin 100 mg capsule 100 mg PO TID Patient Comments: TAKE 1 CAPSULE BY MOUTH THREE TIMES A DAY naproxen [Naprosyn] 500 mg tablet 500 mg PO BID Qty: 20 0RF Primary Care Provider: Lilo Storey Referrals: Compa Miranda MD [Med Staff - Active Staff] - 5-7 Days Care Physician,No Primary [Non-Staff] - Print Language: Maori Disposition Disposition: Home, Self Care
--- NOTE | 2025-04-21 11:18 | RAD_ITS ---
PROCEDURE: CERV SPINE 2 OR 3 VIEWS 04/21/2025 REASON FOR EXAM: NECK PAIN TECHNIQUE: CERV SPINE 3 VIEWS COMPARISON: None FINDINGS: There is loss of the lordosis. There is no significant spondylolisthesis. There is degenerative disc disease at C5-6. Facet articulations are aligned. Prevertebral soft tissues are within normal limits. Hardware is partly visible in the left clavicle. The odontoid appears intact. Dental hardware is noted. RAD/Cerv Spine 2 or 3 Views IMPRESSION: There is loss of the lordosis. There is degenerative disc disease at C5-6. Reading Location: [facility]
[2025-04-21] MEDS: HYDROcodone Bitartrate/Apap 5/325 Tablet PO (11:55)
[2025-04-21] MEDS: cycloBENZAPRine HCl 10 MG Tablet PO (11:55)
== END 2025-04-21 12:00 | disposition home or self-care (01) ==
PROVIDERS: Emergency Provider Emergency Medicine; PCP Student in an Organized Health Care Education/Training Program; Visit Provider Emergency Medicine
DX: M54.2 Cervicalgia (principal); F31.9 Bipolar disorder, unspecified; G47.30 Sleep apnea, unspecified; F17.210 Nicotine dependence, cigarettes, uncomplicated
CPT/HCPCS: 72040; 99283

== ENCOUNTER → 2025-05-31 | Outpatient (CLI) | payer MEDICARE, MEDICAID, SELFPAY ==
[2025-05-31 08:34] LABS: Lithium 0.33 mmol/L (0.60-1.20)
[2025-05-31 08:39] LABS: AST(SGOT) 38 U/L (<=37); Alanine Aminotransfer ALT/SGPT 49 U/L (<=46); Albumin, Serum 4.2 g/dL (3.5-5.0); Alkaline Phosphatase 125 U/L (40-129); Anion Gap 10 (5-15); BUN 11 mg/dL (4-19); BUN/Creat Ratio 10.9 RATIO (10-20); Calcium,Total 9.5 mg/dL (7.6-11.0); Carbon Dioxide 20.6 mmol/L (21.0-32.0); Chloride 108 mmol/L (98-108); Globulin 2.7 g/dL (2.2-4.2); Glucose 116 mg/dL (70-99); Potassium 4.3 mmol/L (3.3-5.1)
== END | disposition home or self-care (01) ==
PROVIDERS: PCP Student in an Organized Health Care Education/Training Program; Referring Provider Psychiatry & Neurology Psychiatry; Visit Provider Psychiatry & Neurology Psychiatry
DX: Z79.899 Other long term (current) drug therapy (principal)
CPT/HCPCS: 36415; 80053; 80178; 84443

== ENCOUNTER → 2025-07-08 | Outpatient (CLI) | payer MEDICARE, MEDICAID, SELFPAY ==
--- NOTE | 2025-07-08 07:49 | MRI_ITS ---
PROCEDURE: SPINE CERVICAL (ROUTINE) 07/08/2025 REASON FOR EXAM: PAIN, MYELOPATHY AND RADICULOPATHY Left arm numbness. TECHNIQUE: Procedure Code: MRISPC Modality: MR Procedure: SPINE CERVICAL (ROUTINE) Multiplanar and multisequence images were obtained without IV contrast administration. COMPARISON: None FINDINGS: Osseous: Cervical vertebral body heights are maintained. Posterior cervical alignment is anatomic. Cervical facet joints are not subluxed or dislocated. The atlantodental interval is maintained. Atlanto occipital and atlantoaxial articulations are within normal range. Bone marrow: There is diminished T1 marrow signal throughout the spine, nonspecific but could be seen with an underlying anemia and red marrow reconversion. Clinical correlation with hematocrit. This may also be seen in smokers or with obesity. There is mild bone marrow edema at the C5 and C6 levels, most likely reactive due to degenerative change. Modic endplate changes are also noted across the C5 and C6 level. There is no evidence of an acute osseous injury. Posterior fossa: There is no Chiari malformation. Visualized V4 segment vertebral artery flow voids are preserved bilaterally. Soft tissues: There is no prevertebral soft tissue swelling or retropharyngeal effusion. No posterior paraspinal soft tissue hematoma. Slight soft tissue prominence of the visualized nasopharyngeal adenoids to be correlated clinically with any symptoms. Lymph nodes: Multiple cervical lymph nodes seen bilaterally but not appearing pathologic by size criteria. Spinal cord: The cervical cord is unremarkable in signal and caliber. No evidence of syringohydromyelia. No cord edema or hemorrhage is seen. No myelomalacia. Cervical ligaments: The anterior longitudinal ligament is continuous without edema to suggest an acute injury. The posterior longitudinal ligament is continuous without visible disruption. No posterior interspinous or supraspinous ligamentous edema to suggest an acute injury. Paraspinal muscles: Paraspinal muscles appear symmetric without asymmetric unilateral atrophy. No muscle edema to suggest an acute sprain or myositis. Disc levels: C2/C3: There is moderate disc space loss. There is mild disc desiccation. No significant posterior disc displacement seen. No significant central canal or foraminal compromise is seen. C3/C4: There is mild posterior disc space loss. No significant posterior disc displacement seen. Mild facet arthropathy. Overall no significant central canal or foraminal compromise. C4/C5: There is mild posterior disc space loss and disc desiccation. No significant posterior disc displacement. Mild facet arthropathy and bony hypertrophy. Overall no significant appearing central canal or foraminal compromise. C5/C6: There is moderately severe disc space loss. There is complete disc desiccation. There is concentric posterior disc bulging slightly effacing the anterior thecal sac and extending towards the foraminal zones bilaterally. No disc herniation is seen. Moderately severe facet arthropathy with mild hypertrophy noted. There is mild ligamentum flavum hypertrophy. No cord compression is seen. Concentric disc bulge extending into the foraminal zones along with facet arthropathy results in moderate to severe [id number]-right foraminal compromise. C6/C7: There is mild disc space loss. There is disc desiccation. Mild concentric disc bulge slightly effacing the anterior thecal sac and also extending into the foraminal zones. Mild facet arthropathy and bony hypertrophy noted. Overall no significant appearing central canal compromise. There is moderately severe bilateral foraminal narrowing. C7/T1: Disc spacing is maintained. Disc hydration is maintained. No posterior disc displacement is seen. There is mild facet arthropathy. Overall no significant central canal or foraminal compromise seen. Epidural space: There is mild epidural fluid or edema surrounding the C5/C6 disc displacement. This may be a reactive effusion. No other epidural fluid collection seen. MRI/Spine Cervical (Routine) IMPRESSION: No acute injury of the cervical spine seen. - Degenerative changes of the cervical spine are noted with findings most pronoun canelo at the C5/C6 and C6/C7 levels where there is compromised to the foramina as discussed above in detail. - Other findings discussed above in detail. Reading Location: [id number]
== END | disposition home or self-care (01) ==
LOC: OPMRI 07:43
PROVIDERS: PCP Student in an Organized Health Care Education/Training Program; Referring Provider Student in an Organized Health Care Education/Training Program; Visit Provider Student in an Organized Health Care Education/Training Program
DX: G95.9 Disease of spinal cord, unspecified (principal); M54.12 Radiculopathy, cervical region
CPT/HCPCS: 72141

== ENCOUNTER → 2025-09-09 | Outpatient (CLI) | payer MEDICARE, MEDICAID, SELFPAY ==
[2025-09-09 12:01] LABS: Cholesterol 210 mg/dL (<=200); Low Density Lipoprotein Calc. 124 mg/dL; Triglycerides 284 mg/dL; Very Low Density Lipoprotein 57 mg/dL (5-40); cholesterol:hdl ratio screen 5.92
== END | disposition home or self-care (01) ==
LOC: LAB 10:46
PROVIDERS: PCP Student in an Organized Health Care Education/Training Program; Referring Provider Student in an Organized Health Care Education/Training Program; Visit Provider Student in an Organized Health Care Education/Training Program
DX: K75.81 Nonalcoholic steatohepatitis (NASH) (principal)
CPT/HCPCS: 36415; 80061

== ENCOUNTER 2025-09-28 12:34 | Emergency (ER) | payer MEDICARE, MEDICAID, SELFPAY ==
[2025-09-28 12:35] VITALS: BP 135/90; PULSE 117; RESP 18; TEMP 37.1; O2SAT 97; BMI 35.2
--- NOTE | 2025-09-28 13:45 | EX.ED.UPPERE ---
HPI History of Present Illness Chief Complaint: Laceration Detail of Chief Complaint: Laceration left middle finger Informant: patient Narrative Narrative: Patient presents to the emergency department with complaint of laceration to his left middle finger that occurred around 11:30 AM. Patient states that he was working on a transmission when he thinks he must of bumped it against something against transmission. He is left-hand dominant. Unsure of his last tetanus shot. [facility] Medical History (Updated 09/28/25 @ 14:[address] Binh Mckee, DO) Wears glasses Bipolar disorder Injury of head and neck Heartburn Smoker Difficulty controlling anger Bipolar 1 disorder Sleep apnea Depression Home Medications Medication Instructions Recorded Last Taken Type lithium carbonate 300 mg capsule 300 mg PO TID 05/13/25 Unknown History cyclobenzaprine 10 mg tablet 10 mg PO TID PRN muscle spasm #30 09/15/25 Unknown Rx tabs gabapentin 600 mg tablet 600 mg PO BID #60 tabs 09/15/25 Unknown Rx Allergy/AdvReac Type Severity Reaction Status Date / Time No Known Allergies Allergy Verified 09/28/25 12:36 Family History Brother Colon cancer, Onset Age: 29 Father Cancer liver Kidney disease Surgical History Hx of colonoscopy History of shoulder surgery History of repair of anterior cruciate ligament of right knee History of tonsillectomy History of surgery on left wrist Social History Smoking Status: Light Smoker (<10/day) ROS ROS ED Review of Systems ROS Unobtainable: other Constitutional Constitutional ED: Reports lethargy; Denies chills, fever(s), sweats or weight loss Eyes Eyes: Denies blurry vision, change in vision or diplopia ENT ENT ED: Denies rhinorrhea or sore throat Cardiovascular Cardiovascular: Denies chest pain, orthopnea or racing heartbeat Respiratory/Chest Respiratory/Chest: Denies cough, dyspnea, dyspnea on exertion, orthopnea or sputum Gastrointestinal Gastrointestinal: Denies abdominal pain, diarrhea, nausea or vomiting Genitourinary Genitourinary ED: Denies dysuria, hematuria or urinary frequency Musculoskeletal Musculoskeletal: Reports other Details: Laceration left middle finger ; Denies arthralgias, back pain, myalgias or neck pain Integumentary Denies abscess, Abrasions or rash Neurologic Neurologic: Denies headache(s) or weakness Psychiatric Psychiatric: Denies anxiety, depression or suicidal thoughts Endocrine Endocrinology: Denies polydipsia, polyphagia or polyuria Hematologic/Lymphatic Hematologic/Lymphatic: Denies easy bleeding, easy bruising or lymphadenopathy Allergic/Immunologic Allergic/Immunologic ED: Denies mouth swelling, tongue swelling or urticaria EXAM Physical Exam Const Vital Signs: 09/28/25 12:35 Temperature 98.7 F Temperature Source Oral Pulse Rate 117 H Respiratory Rate 18 Blood Pressure 135/90 H Blood Pressure Mean 105 Pulse Ox 97 Oxygen Delivery Method Room Air Positive well nourished and well developed General Appearance ED: well developed and NAD HEENT Reports TM's clear and moist mucous membranes normocephalic and atraumatic; Negative for trauma or tenderness Tympanic Membrane ED: Yes TM's clear Eyes PERRL and EOMs intact bilaterally General Eye ED: Negative for pale conjunctiva or scleral icterus Neck no lymphadenopathy, supple and no JVD General: Negative for tenderness Chest Wall inspection of chest normal and palpation of chest normal Chest: Negative for tenderness Resp normal respiratory effort and clear to auscultation bilaterally Effort and Inspection: Negative for respiratory distress or pain with movement Auscultation: Negative for rhonchi, wheezes or diminished lung sounds Cardio regular rate, regular rhythm, S1 normal heart sound, S2 normal heart sound and no murmurs Peripheral Pulses: pulses 2+ throughout GI normal to inspection, nondistended, normoactive bowel sounds, soft to palpation, non-tender, non-distended and no masses Back/Spine no CVA tenderness and no thoracic nor lumbar tenderness Extremity Extremity Narrative: Left middle finger-patient has a 1 cm laceration over the dorsum of the DIP joint is vertical in orientation. No active bleeding currently. He has normal flexion extension at the DIP joint against resistance. Neurovascularly intact General Extremety ED: Negative for edema General Extremity: Negative for edema Neuro oriented x3, CN's II-XII intact bilaterally, no sensory deficits noted and gait normal Sensorium / Orientation: awake, alert, oriented to person, oriented to place and oriented to time Motor Exam: strength 5/5 throughout and strength abnormal Psych mental status grossly normal Skin no rashes or lesions noted and no wounds MDM MDM MDM Narrative Medical decision making narrative: Patient presents with laceration to his left middle finger. Please see procedure note. Patient had a clean dressing applied. Vies to follow-up for suture removal in 10 days. To return if increasing pain, redness, swelling, purulent drainage, or condition should worsen in any way. Procedures Lacerations Left middle finger laceration: Length: 0.39 in Depth: Sub Q Shape: Linear Prep: Shure-Clens Laceration repair: Lidocaine and Nerve block Irrigated (ml): 50 Number of Sutures/Rafael: 2 Suture Information: Ethilon, Simple and 5-0 Discharge Plan Triage Chief Complaint: Laceration ED Provider: Binh Mckee Dx/Rx/DC Orders Clinical Impression: Finger laceration Instructions: ED Hand Laceration- All Closures Prescriptions: No Action lithium carbonate 300 mg capsule 300 mg PO TID cyclobenzaprine 10 mg tablet 10 mg PO TID PRN (Reason: muscle spasm) Qty: 30 0RF gabapentin 600 mg tablet 600 mg PO BID Qty: 60 0RF Primary Care Provider: Lilo Storey Referrals: Lilo Storey MD [Primary Care Provider, Internal Medicine] - 10 Day for suture removal Print Language: [place] Disposition Disposition: Home, Self Care
[2025-09-28] MEDS: Lidocaine 1% (20 ml mdv) 20 ML Vial 8 ML INFILT (13:54)
[2025-09-28 15:04] VITALS: BP 135/90; PULSE 117; RESP 18; TEMP 37.1; O2SAT 97
== END 2025-09-28 15:04 | disposition home or self-care (01) ==
PROVIDERS: Emergency Provider Emergency Medicine; PCP Student in an Organized Health Care Education/Training Program; Visit Provider Emergency Medicine
DX: S61.212A Laceration without foreign body of right middle finger without damage to nail, initial encounter (principal); F31.9 Bipolar disorder, unspecified; G47.30 Sleep apnea, unspecified; F17.200 Nicotine dependence, unspecified, uncomplicated; X58.XXXA Exposure to other specified factors, initial encounter
CPT/HCPCS: 12001; 90715; 99283

== ENCOUNTER 2025-10-07 15:22 | Observation (INO) | payer MEDICARE, MEDICAID, SELFPAY ==
--- NOTE | 2025-09-27 07:20 | EKG12_ITS ---
Test Reason : PREOP Blood Pressure : */* mmHG Vent. Rate : 82 BPM Atrial Rate : 82 BPM P-R Int : 122 ms QRS Dur : 102 ms QT Int : 394 ms P-R-T Axes : 61 15 32 degrees QTcB Int : 460 ms Normal sinus rhythm Normal ECG Confirmed by BRUNO WILLAMS, INA ([id number]), clinical editor ERICKA ROMAN ([id number]) on 09/28/2025 10:22:18 AM Referred By: Compa Miranda Confirmed By: INA CARR MD
[2025-09-27 08:22] LABS: Hematocrit 50.7 % (40-54); Hemoglobin 17.4 g/dL (13.0-16.5); Immature Granulocytes Count 0.020 X10^3/uL (0.0-0.0); Mean Corp Hgb Conc 34.3 g/dL (32-36); Mean Corpuscular Volume 95.3 fL (80-94); Mean Platelet Vol. 12.1 fl (6.2-12.0); NRBC Flagged by Analyzer 0 % (0-5); POSITIVE COUNT YES; Platelet Count 212 K/mm3 (150-450); RBC Distribution Width CV 12.4 % (11.6-14.6); RBC Distribution Width SD 44.4 fl (35.1-43.9); Red Blood Count 5.32 M/mm3 (4.6-6.2); White Blood Count 8.8 K/mm3 (4.4-11.0)
[2025-09-27 08:46] LABS: Differential Indicated SCAN CRITERIA MET
[2025-09-27 08:55] LABS: Magnesium 2.3 mg/dL (1.5-2.2)
[2025-09-27 08:55] LABS: Anion Gap 11 (5-15); BUN 14 mg/dL (4-19); BUN/Creat Ratio 12.7 RATIO (10-20); Calcium,Total 9.5 mg/dL (7.6-11.0); Carbon Dioxide 21.9 mmol/L (21.0-32.0); Chloride 104 mmol/L (98-108); Glucose 111 mg/dL (70-99); Potassium 4.3 mmol/L (3.3-5.1)
[2025-09-27 09:00] LABS: Differential Comment SCANNED
[2025-10-07] VITALS (14 sets, daily range): BP systolic 96–125; BP diastolic 52–76; PULSE 73–108; RESP 16–20; TEMP 36.1–36.8; O2SAT 87–99; BMI 34.5
[2025-10-07] MEDS: Lactated Ringers 1,000 ML 15 ML IV (11:33)
[2025-10-07] MEDS: Magnesium 1 GM over 15 mins IV (11:33)
--- NOTE | 2025-10-07 12:14 | PRE.ANES_ITS ---
ASA Classification* ASA Classification ASA Classification: 2 Assessment & Plan Anesthesia* Anesthesia Assessment Anesthesia Assessment: Discussed sedation and/or anesthesia options, risks, benefits, and alternatives with patient/parents/legal guardian/POA. Questions invited. The patient/parents/legal guardian/POA seems to understand and agrees to proceed with anesthesia plan. Reviewed the physical assessment, medical history, allergy history and patient home medications list prior to surgery/procedure/anesthetic and documented any changes. Performed airway and anesthesia risk assessments. Anesthesia Type Anesthesia Type: General History Source History Obtained from:: Patient and Chart Anesthesia Focused Assessment* Temperature: 97.3 F Pulse Rate: 74 Blood Pressure: 125/76 Respiratory Rate: 16 Pulse Ox: 99 Oxygen Delivery Method: Room Air Airway Assessment Mouth opens: >3 cm Mallampati Score: III Teeth Condition: Missing (Patient is missing a left upper molar. Rest of the teeth are tight.) Neck Range of motion (ROM): Limited ROM (Slight Decrease) Labs Anesthesia Preop lab: CBC WBC, (4.4-11.0) 8.8 K/mm3 09/27/25, 07:07 RBC, (4.6-6.2) 5.32 M/mm3 09/27/25, 07:07 Hgb, (13.0-16.5) 17.4 g/dL H 09/27/25, 07:07 Hct, (40-54) 50.7 % 09/27/25, 07:07 Plt Count, (150-450) 212 K/mm3 09/27/25, 07:07 CHEMISTRY Potassium, (3.3-5.1) 4.3 mmol/L 09/27/25, 07:07 Sodium, (133-145) 137 mmol/L 09/27/25, 07:07 Magnesium, (1.5-2.2) 2.3 mg/dL H 09/27/25, 07:06 BUN, (4-19) 14 mg/dL 09/27/25, 07:07 Creatinine, (0.70-1.20) 1.08 mg/dL 09/27/25, 07:07 Glucose, (70-99) 111 mg/dL H 09/27/25, 07:07 POC Glucose, (74-106) 87 mg/dL Today, 11:36 TSH, (0.300-4.200) 3.550 uIU/mL 05/31/25, 07:38 COAG Pre-Assessment Diagnosis/Proposed Procedure Planned Operative Procedure(s): Anterior Cervical Fusion C5-6 and C6-7 Anesthesia History 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 When Was Last Pacemaker Check QUESTION #4 FULL TEXT: You/Your Family Experience fever (hyperthermia) with Anesthesia Last Oral Intake Last Oral intake: Last Oral Intake NPO since 23:00 10/07/25 11:23 Meds taken in AM with sips of No 10/07/25 11:23 water? Meds patient instructed to take am of surgery PONV PONV - nuclear process engineer: PONV - nuclear process engineer Female No 09/23/25 08:22 HX of Motion Sickness No 09/23/25 08:22 HX of N/V After Surgery No 09/23/25 08:22 Non-Smoker No 09/23/25 08:22 Duration of Surgery greater Yes 09/23/25 08:22 than 60 minutes Number of Risk Factors 1 09/23/25 08:22 PONV Score Low Risk 09/23/25 08:22 Height & Weight Height & Weight: Anesthesia: Height & Weight Height 5 ft 8 in 10/07/25 11:23 Weight: 103 kg 10/07/25 11:23 Body Mass Index (BMI) 34.5 10/07/25 11:23 Respiratory Assessment Respiratory Assessment - nuclear process engineer: Respiratory Tract Infection Hx - nuclear process engineer Hx Respiratory Tract Infection No 09/23/25 08:22 STOP Sleep Apnea STOP Sleep Apnea - nuclear process engineer: STOP Sleep Apnea - nuclear process engineer Hx Hypertension No 09/23/25 08:22 Hx Sleep Apnea Yes 09/23/25 08:22 CPAP No 09/23/25 08:22 BIPAP No 09/23/25 08:22 Do you snore loudly (louder than talking or can be heard Do you often feel tired/ fatigued/ sleepy during daytime? Has anyone observed you stop breathing during sleep? STOP Results Positive 09/23/25 08:22 QUESTION #5 FULL TEXT : Do you snore loudly (louder than talking or can be heard through closed doors)? Tobacco Use History Tobacco Use History - nuclear process engineer: Tobacco Use History - nuclear process engineer Tobacco Use Cigarettes 05/11/25 11:53 Smoking Status Light Smoker (<10/day) 09/28/25 15:03 Hx Tobacco Use Yes 09/23/25 08:22 Years Smoking Packs Smoked per Day Smoking Cessation Date was within the last 15 years Hx Smoking Cessation Date Hx Smoking Cessation No 09/28/25 15:03 Counseling Any additional information?: Yes Smoking Status: Current every day smoker (Patient smoked today.) Hematologic Medial History Hematologic Hx - nuclear process engineer: Hematologic Medical Hx - pocket maker Hx of Blood Transfusion No 09/23/25 08:22 Hx of Transfusion in last 3 No 09/23/25 08:22 Months Date of Last Transfusion (if within last 3 months) Ever experience any problems No 09/23/25 08:22 with transfusion(s)? Specify any problems Hx of Preganancy in last 3 N/A 09/23/25 08:22 Months Nurse Filling Out Transfusion [email or web address] 09/23/25 08:22 & Questions: Date: 09/23/25 09/23/25 08:22 Time: 08:23 09/23/25 08:22 Patient unable to answer at this time (ie. confused, unrespo /Reproduction History /Reproductive History - nuclear process engineer: /Reproductive Hx- nuclear process engineer Hx Now No 09/23/25 08:22 Gestational Age (in weeks): EDC: Hx Hx Para Hx Section SAB No 09/23/25 08:22 Does the father of the baby or his family experience fever w Father of the baby Malignant Hypertension history comment Active Medications Active Medications: Current Medications Generic Name Dose Route Start Last Admin Trade Name Freq PRN Reason Stop Dose Admin Acetaminophen 1,000 mg 10/07/25 13:15 10/07/25 11:34 Acetaminophen 500 Mg Tablet PO 10/07/25 13:16 1,000 mg PREOP ONE Administration Dexamethasone Sodium Phosphate 8 mg 10/07/25 13:15 Dexamethasone 10 Mg/Ml Vial IV 10/07/25 13:16 INTRAOP ONE Dexamethasone Sodium Phosphate 4 mg 10/07/25 15:00 Dexamethasone 4 Mg/Ml Vial IV 10/07/25 15:01 POSTOP ONE Cefazolin Sodium 2 gm/ Sodium 110 mls @ 150 mls/hr 10/07/25 13:15 Chloride IV 10/07/25 13:58 INTRAOP ONE Tranexamic Acid 1,000 mg/ 110 mls @ 440 mls/hr 10/07/25 13:15 Sodium Chloride IV 10/07/25 13:29 INTRAOP ONE Tranexamic Acid 1,000 mg/ 110 mls @ 440 mls/hr 10/07/25 13:15 Sodium Chloride IV 10/07/25 13:29 INTRAOP ONE Magnesium Sulfate 1 gm/ 102 mls @ 408 mls/hr 10/07/25 13:15 10/07/25 11:33 Dextrose IV 10/07/25 13:29 408 mls/hr PREOP ONE Administration Lactated Ringer's 1,000 mls @ 15 mls/hr 10/07/25 11:00 10/07/25 11:33 IV 15 mls/hr .Q48H BAYLEE Administration Insulin Human Lispro 1 - 6 unit 10/07/25 13:15 Insulin Lispro 100 Unit/Ml Insuln.Pen SC 10/07/25 19:15 Q4H PRN PRN BG>/= 180, SEE PROTOCOL Protocol PFSH Medical History Wears glasses Bipolar disorder Injury of head and neck Heartburn Smoker Difficulty controlling anger Bipolar 1 disorder Sleep apnea Depression Home Medications ?Medication ?Instructions ?Recorded ?Last Taken ?Type lithium carbonate 300 mg capsule 300 mg PO TID 5 Unknown History cyclobenzaprine 10 mg tablet 10 mg PO TID PRN muscle s pasm #30 09/15/25 Unknown Rx tabs gabapentin 600 mg tablet 600 mg PO BID #60 tabs 09/15 Unknown Rx Allergy/AdvReac Type Severity Reaction Status Date / Time No Known Allergies Allergy Verified 10/07/25 11:23 Family History Brother Colon cancer, Onset Age: 29 Father Cancer liver Kidney disease Surgical History Hx of colonoscopy History of shoulder surgery History of repair of anterior cruciate ligament of right knee History of tonsillectomy History of surgery on left wrist Social History Smoking Status: Light Smoker (<10/day) Review of Systems (Anesthesia) ROS Narrative System reviewed and no additional complaints, except as documented.
--- NOTE | 2025-10-07 12:46 | PCM.HP.BLA ---
History and Physical Date of Admission: 10/07/25 MR#: [id number] Acct: [id number] Name: FRANCES JONES Rep #: [id number] : 1985 Provider: Dr. Compa Miranda MD Age/Sex: 40/M Location: [facility] [place] Status: Signed Intake Vital Signs 05/13/2511:32 09/28/2512:35 09/29/2508:51 Height 5 ft 8 in 5 ft 8 in 5 ft 8 in Weight: 220 lb BMI 33.4 Intake Visit Reasons: cervical spine Chief Complaint: Cervical spine pre op Accompanied by: Is patient in pain?: Yes Pain scale (1-10): 8 Allergies No Known Allergies Allergy (Verified 09/29/25 08:53) Medications ?Medication ?Instructions ?Recorded ?Confirmed ?Type lithium carbonate 300 mg capsule 300 mg PO TID 05/13/25 09/29/25 History cyclobenzaprine 10 mg tablet 10 mg PO TID PRN muscle spasm #30 09/15/25 09/29/25 Rx tabs gabapentin 600 mg tablet 600 mg PO BID #60 tabs 09/15/25 09/29/25 Rx Have you fallen in the past year?: No PFSH Medical History Wears glasses Bipolar disorder Injury of head and neck Heartburn Smoker Difficulty controlling anger Bipolar 1 disorder Sleep apnea Depression Surgical History Hx of colonoscopy History of shoulder surgery History of repair of anterior cruciate ligament of right knee History of tonsillectomy History of surgery on left wrist Family History Brother Colon cancer, Onset Age: 29 Father Cancer liver Kidney disease Social History Smoking Status: Light Smoker (<10/day) HPI cervical spine Details: This documentation accurately reflects the service provided and the decisions made by me, Dr. Compa Miranda MD 09/29/25 0851. Part of today?s visit was documented by Catracho Breen MA, acting as scribe. FRANCES JONES is a 40 year old M here today for cervicla spine pre op C5-7 ACDF . Patient states that he doesn't have any pain today. He would like to go over the surgery details. The patient is a 40 year old individual presenting for preoperative counseling for a scheduled C5-C7 anterior cervical discectomy and fusion. The patient reports persistent left-sided pain and increased numbness which radiates down the arm to all fingers, with a predominance in the first three digits. The patient also notes minor symptoms on the right side and denies any recent falls or injuries since the last MRI. Past medical history is negative for diabetes, heart or lung problems, and high blood pressure. The patient denies use of blood thinners or recent steroid injections. The patient has a history of a spinal cord stimulator in the lower back, which was implanted approximately two years ago. Regarding social history, the patient reports smoking about half a pack of cigarettes per day for many years. 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 The patient was cleared for surgery by the primary care physician, Dr. Toby Berrios, and has completed a pre-admission testing (PAT) phone call. - Neurological: Reports increased numbness and pain primarily on the left, radiating down the arm to all fingers, predominantly the first three digits. Also reports some mild symptoms on the right side. - Constitutional: Denies any new medical history. - Cardiovascular: Denies heart problems or high blood pressure. - Respiratory: Denies lung problems. - Musculoskeletal: Denies any recent falls or injuries. - Hematologic/Lymphatic: Denies use of blood thinners. Attestation: Documentation on this patient encounter was supported using ambient scribe technology/ voice AI technology. The patient consented to recording for the purpose of documenting the encounter. Provider reviewed content of the generated note prior to signature. 07/22/25: FRANCES JONES is a 40 year old M here today for MRI review of the cervical spine. He states that his pain is progressively getting worse along with his numbness. He does still take gabapentin and cyclobenzaprine which do help to take the edge off. Patient continues to report dexterity changes in his left hand and has been dropping things out of him. He is right-hand dominant. Current smoker and smokes half a pack a day. No diabetes, no heart or lung issues, no blood thinners. HPI from 05/13/25: FRANCES JONES is a 39 year old M here today for neck pain that he has been having for 2 weeks now. Says that over the last 2 weeks the symptoms have been worsening. He denies any known injury or aggravating events. He states that his pain is on the left side of his neck and radiated down into his shoulder and under his armpit. Says that the left sided neck pain goes to the left shoulder and then down the back of his left arm all the way to his fingers. He does have numbness and tingling in his left shoulder that extends down his arm into his fingers. He denies any right sided involvement. He has not done any PT or seen pain management. He was given prednisone and gabapentin at [facility] which did help with his pain but he ran out of the medications. He was also given cyclobenzaprine which was helpful but he has ran out of. He did have xrays at [facility] and as well as [facility]. He denies having an MRI of the neck. He does have weakness in the left arm. He has been having balance issues as well. Says that this balance issue started with the onset of his neck pain. Says that he has noticed some dexterity changes and has dropped things out of his left hand. The patient is right-hand dominant. He takes ibuprofen and Tylenol as needed however this has been no benefit to him. Ortho Exam General General: Yes no acute distress Neurologic: Yes alert and Yes oriented x3 Psychologic: Yes reasonable and appropriate Spine SPINE TESTING CERVICAL THORACIC LUMBAR Musculoskeletal Strength 0=absent - 5=normal Details: Neurological exam of the upper extremities shows 5X5 power. Normal sensation across all dermatomes. No hyperreflexia. Sarah's negative. There is both midline and left paraspinal tenderness. Romberg's positive. Coding Level of Care Code Off vis,est,level 4 Diagnoses Cervical myelopathy with cervical radiculopathy G95.9; M54.12 Degenerative disc disease, cervical M50.30 Spondylolisthesis of cervical region M43.12 Additional Codes Intake - Is patient in pain?: Yes (1125F) Time Spent (min) 35 Assessment and Plan Assessment and Plan (1) Cervical myelopathy with cervical radiculopathy: Status: Acute (2) Degenerative disc disease, cervical: Status: Acute (3) Spondylolisthesis of cervical region: Status: Acute Plan Again reviewed prior x-rays show a disc height loss at C5-6 with a mild retrolisthesis of C5 on C6, there is straightening of the normal cervical lordosis. There is some mild instability at the C5-6 level with dynamic views. Reviewed cervical MRI from July 08, 2025 which showed C5-6 moderately severe disc height loss, mild disc bulge and moderately severe facet arthropathy at this level, no significant cord compression seen, the disc bulge with the facet arthropathy results in moderate to severe left foraminal stenosis. C6-7 mild disc height loss with a mild disc bulge without any significant central canal stenosis, there is moderately severe bilateral foraminal stenosis at this level. 1. Cervical Degenerative Disc Disease with Radiculopathy at C5-C7 - The patient is a 40-year-old individual with symptomatic C5-C7 degenerative disc disease causing nerve compression, resulting in persistent left-sided radicular pain and numbness. The patient understands the diagnosis and wishes to proceed with surgical intervention. - Plan includes proceeding with an anterior cervical discectomy and fusion (ACDF) at C5-C7 on October 07. A detailed discussion was held regarding the surgical procedure, which involves an anterior approach to remove the discs, decompress the nerves, place a bone graft, and stabilize with a plate and screws. The possibility of same-day discharge versus an overnight stay dependent on intraoperative factors such as bleeding was discussed. The patient was also extensively counseled on surgical risks, including but not limited to infection, bleeding/hematoma, nerve/spinal cord injury, non-union, hardware failure, adjacent segment disease, and general anesthetic risks. The use of intraoperative neuromonitoring to enhance safety was explained. - Post-operative plan: The patient will be in a cervical collar full-time for at least two weeks, with weaning initiated based on 2-week follow-up X-rays. Physical therapy will begin after two weeks to work on range of motion and light exercises. Activity will be restricted with no heavy lifting or excessive neck twisting for three months. A gradual return to heavy-labor work is anticipated after three months, pending clinical and radiographic healing. Follow-up is scheduled at 2 weeks, 6 weeks, 3 months, and 1 year post-operatively. The patient was instructed on post-operative care, including encouraging mobility, managing potential dysphagia with a soft diet, and sleeping in an elevated position. 2. Tobacco Use Disorder - The patient smokes approximately half a pack of cigarettes daily. The patient was counseled extensively on the significantly increased risks of poor surgical outcomes associated with smoking, particularly impaired bone healing leading to non-union and hardware failure, as well as an elevated risk of infection. - Plan is to strongly encourage smoking cessation to optimize healing and achieve the best possible surgical outcome. The patient was advised that quitting now would provide the best value from the surgery. 3. Chronic Low Back Pain with Spinal Cord Stimulator - The patient has a history of a spinal cord stimulator in the lower back for approximately two years. - Plan is for the patient to ensure the device is turned off prior to surgery. It is not expected to otherwise interfere with the cervical procedure. 4. Preoperative Evaluation - The patient has received medical clearance from the primary care physician and has completed the pre-admission testing call. - Plan is for the patient to follow all instructions provided by the pre-admission testing team regarding [id number] protocols and medication management. - Your surgery is scheduled for next October 07. - It is very important to stop smoking before your surgery, as it will help your bones heal properly and reduce the risk of problems like infection or the need for another operation. - The nerve stimulator in your lower back must be turned off before surgery. - After surgery, you will need to wear a neck collar full-time for at least two weeks. - You may have a sore throat and find it hard to swallow. Eating soft foods will help. - Sleep with your head propped up on pillows or in a recliner chair to help reduce swelling. - Make sure to walk around a lot after surgery, as this helps with healing. - For the first three months after surgery, do not do any heavy lifting or excessive bending and twisting of your neck. - You will not be able to drive while you are wearing the neck collar. If your job is physically demanding, you may need to take three months off work unless light-duty work is available. - You will have follow-up appointments at 2 weeks, 6 weeks, 3 months, and 1 year after your surgery. Explained imaging findings in detail. Explained options with the patient which includes conservative treatment of epidural steroid injections with pain management versus surgery. At this time the patient does wish to proceed with surgical intervention. His neck pain and arm pain down the left arm has been decreasing his quality of life and has been making it difficult for him to do the things that he wishes to do. The patient also has myelopathic symptoms of worsening dexterity and balance issues. Discussed that surgical intervention would include a C5-7 ACDF. Discussed this procedure in detail and explained the risks, benefits and alternatives. The risks of surgery include but are not limited to infection, bleeding, injury to nerves and vessels, hematoma formation, dysphagia, dysphonia, recurrent laryngeal nerve injury, Meghan syndrome, DVT, pulmonary embolism, pneumonia, atelectasis, cardiopulmonary event, pseudoarthrosis, hardware failure, adjacent segment degeneration, need for further surgery, nerve root injury, spinal cord injury. Answered all questions to the patient?s satisfaction. Patient understands and agrees to proceed with surgery. Consent was signed. Follow up 2 weeks post operatively or sooner if pain, swelling, numbness or associated symptoms, or concerns develop. All questions answered. Patient in agreement of plan.
[2025-10-07] MEDS: Midazolam 2 MG/2 ML Syringe IV (12:57)
[2025-10-07] MEDS: Cefazolin 1 GM/5 ML Vial 2 GM IV (13:00)
[2025-10-07] MEDS: Lidocaine 1% (5 ml sdv) 5 ML Vial IV (13:05)
--- NOTE | 2025-10-07 13:20 | RAD_ITS ---
PROCEDURE: CERV SPINE 2 OR 3 VIEWS 10/07/2025 REASON FOR EXAM: ANTERIOR CERVICAL FUSION C5-6 C6-7 TECHNIQUE: Procedure Code: RADSPCL Modality: DX Procedure: CERV SPINE 2 OR 3 VIEWS Single limited intraoperative lateral view of the C-spine. 24.2 seconds of fluoroscopy, radiation dose of 3.71 mGy COMPARISON: MRI from 07/08/2025 FINDINGS: Limited intraoperative lateral view of the C-spine was performed and shows surgical instrument placed anteriorly into the C5-6 disc space. RAD/Cerv Spine 2 or 3 Views IMPRESSION: Anterior marker noted in the C5-6 disc space. Reading Location: [place] [id number]
[2025-10-07] MEDS: fentaNYL 100 MCG/2 ML Ampul 200 MCG IV (13:25)
[2025-10-07] MEDS: Lactated Ringers 2,000 ML 2000 ML IV (14:16)
[2025-10-07] MEDS: TRANEXAMIC ACID 1,000 MG/10 ML ML 2000 MG IV (14:46)
--- NOTE | 2025-10-07 15:27 | PCM.POST.ANE ---
Anesthesia: Postop Eval I Current Vital Signs Temperature: 96.9 F Pulse Rate: 77 Blood Pressure: 103/68 Respiratory Rate: 20 Pulse Ox: 93 Oxygen Delivery Method: Nasal Cannula Oxygen Flow Rate (L/min): 4 Assessment Airway patent: Yes Spontaneous unlabored respirations: Yes Mental status: Asleep nausea: No Vomiting: No Anesthesia Complication: No Fluid Hydration Crystalloid volume administer (ml): 1,400 Total IV fluid infused: 1,400 Progress Note Anesthesia document: Postop Eval 1 completed: Yes
--- NOTE | 2025-10-07 15:30 | OP.PCM_ITS ---
Procedures Musculoskeletal 20xxx-29xxx: Other Procedure See Report Operative Report (Standard) Operative Information Date of Procedure: 10/07/25 Pre-Operative Diagnosis: C5-7 disc degeneration with stenosis, radiculomyelopathy Post-Operative Diagnosis: Same Surgery/Procedure Performed: C5-7 ACDF women's garment fitter: Yes Director Money: Paige Shine Tasks completed by project administrative assistant: Closing, Removing tissue, Implanting device, Hemostasis: Electrocautery and Retracting Type of Anesthesia: General RN Documented Start/Stop Times: Operation Date: 10/07/25 13:15 Case Time Into Pre-Op 10/07/25 10:51 Out of Pre-Op 10/07/25 12:49 Anesthesia Start 10/07/25 12:57 Into Room 10/07/25 12:57 Procedure Start 10/07/25 13:29 Procedure End 10/07/25 15:14 Anesthesia End 10/07/25 15:20 Out of Room 10/07/25 15:20 Procedure Start Time: 13:29 Procedure Stop Time: 15:14 Select all DRAINS/GRAFTS/IMPLANTS that apply: Drains Drain details: Dimmitt , Graft Graft details: Structural allograft corticocancellous strut and Implanted device Implanted device details: Medtronic [place] Elite plate instrumentation Estimated Blood Loss: 30 cc Specimen collected: No Description of surgery: Preoperative diagnosis: C5-7 disc degeneration with stenosis, radiculomyelopathy Postoperative diagnosis: Same Name of procedure: C5-7 anterior cervical discectomy and fusion with plate instrumentation - Anterior cervical fusion C5-6, CPT code 38016 - Anterior plate instrumentation C5-7, CPT code 43548/59 - Anterior cervical fusion C6-7, CPT code 48171/51 -C5-6 structural allograft bone with DBX, CPT code 26506 - C6-7 structural allograft bone with DBX, CPT code 32926 Attending surgeon: Compa Miranda M.D. Anesthesia: Gen. endotracheal Estimated blood loss: 30 mL Complications: None Instrumentation used: Medtronic [place] Elite plate, LASR corticocancellous block Indications: The patient is a pleasant 40-year-old gentleman who presented with neck pain, left upper extremity radiation, hand numbness, difficulty with dexterity and balance. MRI showed C5-7 disc degeneration with central from stenosis. After prolonged period of nonsurgical treatment, the patient requested surgical treatment. All risks and benefits of the procedure were explained to the patient. The risks include but are not limited to infection, bleeding, injury to nerves and vessels, vertebral artery injury, spinal cord injury, paralysis, vocal cord paralysis, injury to esophagus, pseudoarthrosis, need for further procedures, adjacent segment degeneration. Procedure: The patient was identified in the preoperative suite using unique patient identifiers. Skin was marked consent was taken and all questions were answered. The patient was then brought back to the operative room and a timeout was performed. General endotracheal anesthesia was given. Intraoperative neuro monitoring leads were applied. The patient was carefully positioned supine on a regular OR table. A lateral view with a C-arm was done to identify the level and to define the incision. The anterior neck was then prepped and draped in the usual fashion. A final timeout was then performed. A transverse skin incision was taken to the left of midline. Subcutaneous tissue was then divided with Bovie. Platysma was identified and cut along the incision with scissors. The fascial interval between the sternocleidomastoid and the larynx was developed. Omohyoid was identified and retracted. The esophagus with the larynx was retracted medially to reach the prevertebral fascia. Marker x-ray was performed with bent spinal needle and disc space and levels were confirmed. Longus coli muscle was elevated on both sides at and above and below C5-7 discs. Self-retaining retractors were then placed. A long handle knife was then used to perform annulotomy at C5-6. Disc fragments were removed with the pituitary. [place] pins were placed in C5 and C6 for disc distraction. Curettes and bur was utilized to remove cartilage from the endplates. Discectomy was performed laterally up to the uncovertebral joints. Posterior osteophytes were thinned down with the bur and adequate decompression in the central and foraminal areas were performed and PLL was thinned out. Once the disc space was prepared, trials of various sizes were utilized. Thorough irrigation was given. 6 mm LASR cortical cancellous allograft bone large footprint was then fashioned in such a way that concavities were burred out inferiorly and superiorly and half cc of DBX (demineralized bone matrix) was squeezed into the cancellous portion. The graft was then inserted into the C5-6 disc space. The retractors were then repositioned and the procedure was repeated for C6-7 disc with complete discectomy. Graft size was 6 mm at with large footprint at C6-7. The grafts were found to be in good apposition with good pullout strength. A 42 mm Medtronic [place] Elite plate was then fixed to C5-7 with 16 mm screws. A lateral x-ray was then taken to check the length of the screws. Both AP and lateral x-rays showed good positioning of plate and screws. The locking mechanism over the screw heads was then turned. Thorough irrigation was again given. Hemostasis was achieved. A Dimmitt drain was then inserted. Closure was done with 3-0 Vicryl for the platysma and subcutaneous tissue layers and 4-0 Monocryl for the skin. Closure was done around the drain. Steri-Strips were applied and dressing was done with 4 x 4 gauze and Tegaderm. A cervical collar was then applied. The patient was then woken up from anesthesia extubated and taken to PACU in stable condition. From here, the patient will be transitioned to the floor. Intraoperative neuro monitoring was performed throughout this procedure. Motor evoked potentials were run periodically. All potentials remained at baseline throughout the procedure. I was present for the entire surgery and performed the surgery myself. Aircraft Machinist Paige Shine PA-C. My physician clinical assistant was a vital part of this case. They were important in appropriate retraction during the case, and protection of soft tissues during the procedure. Their intimate knowledge of the case and my steps aided in safe and expedient completion of the procedure as well as appropriate position of the patient during the surgery. They were also vital in assisting with closure under my direct supervision. Surgical Findings: See operative note Complications Complications: No
--- NOTE | 2025-10-07 16:11 | POSTOPAN2_ITS ---
Anesthesia Postop Eval I Sum Postop Eval Completion status Anesthesia document: Postop Eval 1 completed: Yes Anesthesia Postop Eval I Summary Anesthesia Postop Eval I Summary: Anesthesia Postop Eval I: Assessment Summary Airway patent Yes 10/07/25 15:28 [email or web address] Spontaneous unlabored Yes 10/07/25 15:28 [email or web address] [email or web address] respirations Mental status Asleep 10/07/25 15:28 [email or web address] nausea No 10/07/25 15:28 [email or web address] Vomiting No 10/07/25 15:28 [email or web address] Anesthesia Postop Eval I: Fluid Summary Crystalloid volume administer 1,400 10/07/25 15:28 [email or web address] (ml) Colloids volume administered ( ml) Blood Product volume administered (ml) Total IV fluid infused 1,400 10/07/25 15:28 [email or web address] Anesthesia Postop Eval I: Summary Notes Anesthesia Complication No 10/07/25 15:28 [email or web address] Anesthesia Complication Comment: Post-operative progress note Anesthesia: Postop Eval II Evaluation Mental status: Awake and Calm Pain Level: 4 nausea: No Vomiting: No Complications Anesthesia Complication: No
--- NOTE | 2025-10-07 16:11 | PCM.POSTANE2 ---
Anesthesia Postop Eval I Sum Postop Eval Completion status Anesthesia document: Postop Eval 1 completed: Yes Anesthesia Postop Eval I Summary Anesthesia Postop Eval I Summary: Anesthesia Postop Eval I: Assessment Summary Airway patent Yes 10/07/25 15:28 [email or web address] Spontaneous unlabored Yes 10/07/25 15:28 [email or web address] respirations Mental status Asleep 10/07/25 15:28 [email or web address] nausea No 10/07/25 15:28 [email or web address] Vomiting No 10/07/25 15:28 [email or web address] Anesthesia Postop Eval I: Fluid Summary Crystalloid volume administer 1,400 10/07/25 15:28 [email or web address] (ml) Colloids volume administered ( ml) Blood Product volume administered (ml) Total IV fluid infused 1,400 10/07/25 15:28 [email or web address] Anesthesia Postop Eval I: Summary Notes Anesthesia Complication No 10/07/25 15:28 [email or web address] Anesthesia Complication Comment: Post-operative progress note Anesthesia: Postop Eval II Evaluation Mental status: Awake and Calm Pain Level: 4 nausea: No Vomiting: No Complications Anesthesia Complication: No
--- NOTE | 2025-10-07 17:30 | PCM.PN.HOSP ---
Subjective Subjective Consult requested by Dr. Miranda for post-op medical mgmt. This is a 40-year-old male who underwent a C5-[address] Miranda today. His pain was not to be a controlled despite numerous medications so patient was brought in overnight to get more optimal prior to him being discharged. Other than the pain and being hungry he denies any other complaints. Objective Data Objective Data Vital Signs: Vital Signs Temp Pulse Resp BP Pulse Ox O2 Del Method O2 Flow Rate 36.6 C 79 16 113/66 95 Nasal Cannula 4 10/07/25 17:18 10/07/25 17:18 10/07/25 17:18 10/07/25 17:18 10/07/25 17:18 10/07/25 17:18 10/07/25 17:18 Oxygen Flow Rate (L/min) 4 Oxygen Delivery Method Nasal Cannula Weight: 103 kg Body Mass Index (BMI) 34.5 Intake & Output: Intake and Output for Last 24 Hours 10/05/25 10/06/25 10/07/25 23:59 23:59 23:59 Intake Total 1102 / 1102 Output Total Balance 1072 / 1072 Lab / Micro Data 09/27/25 07:07 09/27/25 07:07 Labs: Laboratory Results - last 24 hr 10/07/25 11:36: POC Glucose 87 Micro: Microbiology 09/27/25 07:07 Swab (Method) Nasal Screen MRSA/MSSA - Final Physical Exam Const healthy appearing Constitutional Narrative: Lying in bed. Alert. Uncomfortable but not toxic. C-collar in place. Assessment & Plan Assessment/Plan (1) Bipolar disorder: PLAN: Per the patient has been stable and he has been taking lithium chronically. Does not appear to be lithium toxic at this time so do not feel an indication to check a level on him. Continue with lithium at his previous dosing. PLAN: Plan Status post C5-7 ACDF. Management per spine surgery. Patient otherwise medically stable. No active medical issues at present. Charges/Coding Visit Charges Inpatient E&M: 38720 Subs Hosp L1
[2025-10-07] MEDS: HYDROcodone Bitartrate/Apap 5/325 Tablet PO ×2 (18:27→23:50)
--- OUTSIDE RECORDS SUMMARY | 2025-10-07 18:38 | XMS RPT_ITS | CCD ---
Author Organization [facility] ion [facility] Care Team Providers Care Novelty Maker Name Role Phone Larry Allen Unavailable Unavailable Larry Allen Unavailable Unavailable GrayEligio Unavailable Unavailable TomchaHannah reed Unavailable Unavailable GrayEligio W Unavailable Unavailable GrayEligio W Unavailable Unavailable TomHannah bell Unavailable Unavailable GrayEligio W Unavailable Unavailable GrayEligio reed W Unavailable Unavailable TomHannah bell Unavailable Unavailable TomHannah bell Unavailable Unavailable TomHannah bell Unavailable Unavailable TomHannah bell Unavailable Unavailable TomHannah bell Unavailable Unavailable TomHannah bell Unavailable Unavailable Hannah Trammell Unavailable Unavailable MARQUES SRIVASTAVA Attending Unavailable DIANA ROMANO Referring Unavailable IMCA Primary Care Unavailable MARQUES SRIVASTAVA Attending Unavailable DIANA ROMANO Referring Unavailable IMCA Primary Care Unavailable MARQUES SRIVASTAVA Attending Unavailable IMCA Referring Unavailable IMCA Primary Care Unavailable Reece WILLAMS, Brenton Freeman Unavailable No, Physician Primary Care Provider Unavailchucho e Unavailable Primary Care Provider Unavailabl e Alexa Griggs Primary Care Provider [phone] Alexa Griggs DO Primary Care Provider [phone] Primary Care Physician DR ALEXA GRIGGS DO Primary Care Physician Required, No Pcp Unavailable Unavailable Moomaw, Aristides I Unavailable Unavailable Addy FIBERGLASS TECHNICIAN Aristides Inocencio Attending Unavailable ADAM BENDER Admitting Unavailable ADAM BENDER Attending Unavailable NO, PHYSICIAN Primary Care Unavailable Sandrita Charles RN Unavailable Unavailable JARED DO, DR KHAN Primary Care Unavailable STARLA WILLAMS, MIGUEL Reed Attending Unavailable AV BERMUDEZ MD Referring Unavailable JARED DO, DR KHAN Primary Care Unavailable LARA WILLAMS, AV Ricci Attending Unavailable JARED DO, DR KHAN Primary Care Unavailable STARLA WILLAMS, MIGUEL Reed Attending Unavailable JARED DO, DR KHAN Primary Care Unavailable STARLA WILLAMS, MIGUEL Reed Attending Unavailable JARED DO, DR KHAN Primary Care Unavailable STARLA WILLAMS, MIGUEL Reed Attending Unavailable GURPREET GALLAGHER PA-C Attending Unavailable JARED DO, DR KHAN Primary Care Unavailable JARED DO, DR KHAN Consulting Unavailable JARED DO, DR KHAN Primary Care Unavailable STARLA WILLAMS, MIGUEL Reed Attending Unavailable ALEXYS WEINSTEIN MD Consulting Unavailable JARED DO, DR KHAN Primary Care Unavailable FROMMELT DO, SABI Attending Unavailable JARED DO, DR KHAN Primary Care Unavailable AV BERMUDEZ MD Attending Unavailable JARED DO, DR KHAN Primary Care Unavailable AV BERMUDEZ MD Attending Unavailable JARED DO, DR KHAN Primary Care Unavailable AV BERMUDEZ MD Attending Unavailable JARED DO, DR KHAN Primary Care Unavailable DANIELLA CORRECTIONAL SERGEANT-FIBERGLASS TECHNICIAN, COLTON Attending Unavail able JARED DO, DR KHAN Primary Care Unavailable DANIELLA CORRECTIONAL SERGEANT-FIBERGLASS TECHNICIAN, COLTON Attending Unavail able JARED DO, DR KHAN Primary Care Unavailable DANIELLA CORRECTIONAL SERGEANT-FIBERGLASS TECHNICIAN, COLTON Attending Unavail able JARED DO, DR KHAN Primary Care Unavailable MIGUEL CHA MD Attending Unavailable JARED DO, DR KHAN Primary Care Unavailable BREWER CORRECTIONAL SERGEANT-FIBERGLASS TECHNICIAN, COLTON Attending Unavail able JARED DO, DR KHAN Primary Care Unavailable STARLA WILLAMS, MIGUEL Reed Attending Unavailable JARED DO, DR KHAN Primary Care Unavailable BETO LEWIS MD Attending Unavail able JARED DO, DR KHAN Primary Care Unavailable AV BERMUDEZ MD Attending Unavailable JARED DO, DR KHAN Primary Care Unavailable AV BERMUDEZ MD Attending Unavailable JARED DO, DR KHAN Primary Care Unavailable MIGUEL CHA MD Attending Unavailable JARED DO, DR KHAN Primary Care Unavailable AV BERMUDEZ MD Attending Unavailable JARED DO, DR KHAN Primary Care Unavailable MIGUEL CHA MD Attending Unavailable JARED DO, DR KHAN Consulting Unavailable JARED DO, DR KHAN Primary Care Unavailable STARLA WILLAMS, MIGUEL Reed Attending Unavailable SERAFIN DE OLIVEIRA MD Consulting Unavailable JARED MUHAMMAD, DR KHAN Primary Care Unavailable MIGUEL CHA MD Attending Unavailable MIGUEL CHA MD Admitting Unavailable JARED DO, DR KHAN Consulting Unavailable JARED DO, DR KHAN Primary Care Unavailable MIGUEL CHA MD Attending Unavailable LASKOVSHEN DO, MIRLANDE Consulting Unavailabl e YENNIFER WILLAMS, SERAFIN Consulting Unavailable ALEXA GRIGGS Primary Care Unavailable MIGUEL CHA MD Attending Unavailable Alexa Griggs DO Primary Care Provider [phone] Cordelia WILLAMS, Mick Primary Care Provider MICK LEUNG Primary Care Unavailable CONSULT, ORAL SURGERY Consulting Unavailabl e PHYSICIAN, NOT RECORDED Primary Care Physician U mejia RAMIREZ MD, KRISTY Romo Attending Unavailable PHYSICIAN, NOT RECORDED Primary Care Unavaila fifi Broussard MD, Dr. Bell Attending Provider [phone] Bobo WILLAMS, Dr. Bell Emergency Provider Care Physician, No Primary Primary Care Provider Unavailable Zay WILLAMS, Dr. Hurtado Attending Provider Dr. Genesis Collazo MD Referring Provider [phone] Dr. Binh Mckee DO Emergency Provider Cordelia WILLAMS, Dr. Nagy Primary Care Provider BENNETT, SERGIO T Attending Unavailable BENNETT, SERGIO T Admitting Unavailable BENNETT, SERGIO T Primary Care Unavailable MICK LEUNG MD Consulting Unavailable PROVIDER, UNKNOWN Consulting Unavailable PROVIDER, UNKNOWN Consulting Unavailable MICK LEUNG MD Consulting Unavailable BENNETT, SERGIO T Admitting Unavailable BENNETT, SERGIO T Primary Care Unavailable BENNETT, SERGIO T Attending Unavailable PROVIDER, UNKNOWN Consulting Unavailable PROVIDER, UNKNOWN Consulting Unavailable MICK LEUNG MD Primary Care Unavailable MICK LEUNG MD Consulting Unavailable MICK LEUNG MD Attending Unavailable MICK LEUNG MD Admitting Unavailable PROVIDER, UNKNOWN Consulting Unavailable PROVIDER, UNKNOWN Consulting Unavailable MICK LEUNG MD Primary Care Unavailable MICK LEUNG MD Consulting Unavailable MICK LEUNG MD Attending Unavailable MICK LEUNG MD Admitting Unavailable PROVIDER, UNKNOWN Consulting Unavailable PROVIDER, UNKNOWN Consulting Unavailable MICK LEUNG MD Consulting Unavailable MICK LEUNG MD Attending Unavailable MICK LEUNG MD Admitting Unavailable MICK LEUNG MD Primary Care Unavailable PROVIDER, UNKNOWN Consulting Unavailable PROVIDER, UNKNOWN Consulting Unavailable MICK LEUNG MD Consulting Unavailable MICK LEUNG MD Attending Unavailable MICK LEUNG MD Admitting Unavailable MICK LEUNG MD Primary Care Unavailable PROVIDER, UNKNOWN Consulting Unavailable PROVIDER, UNKNOWN Consulting Unavailable MICK LEUNG MD Primary Care Unavailable MICK LEUNG MD Consulting Unavailable MICK LEUNG MD Attending Unavailable MICK LEUNG MD Admitting Unavailable PROVIDER, UNKNOWN Consulting Unavailable PROVIDER, UNKNOWN Consulting Unavailable BENNETT, SERGIO T Attending Unavailable BENNETT, SERGIO T Admitting Unavailable BENNETT, SERGIO T Primary Care Unavailable MICK LEUGN MD Consulting Unavailable PROVIDER, UNKNOWN Consulting Unavailable PROVIDER, UNKNOWN Consulting Unavailable Mick Leung MD Primary Care Provider Care Physician, No Primary Primary Care Provider Unavailable Dr. Mick Leung MD Referring Provider [phone] Paige Vann Attending Provider Dr. Weston Gibbs MD Attending Provider Dr. Binh Mckee DO Attending Provider LARRY SU Attending Unavailable MICK LEUNG Primary Care Unavailable ELIGIO MILTON Attending Unavailable ALEXA GRIGGS Primary Care Unavailable MICK LEUNG Primary Care Unavailable KIAN GASTON Attending Unavailable MICK LEUNG Primary Care Unavailable KACIE MENA Attending Unavailable MICK LEUNG Primary Care Unavailable Dr. Binh Mckee DO Attending Physician [phone] Dr. Binh Mckee DO Emergency Department Physici an Dr. Mick Leung MD Primary Care Physician Paige Vann Attending Physician Dr. Denzel Gibbs MDl Attending Physician [phone] Zay WILLAMS, Dr. Hurtado Attending Physician Dr. Genesis Collazo MD Referring Provider Paige Vann Referring Provider ALEXUS AVILES Attending Unavailable SYSTEM, PROVIDER NOT IN Primary Care Unavaila ble SYSTEM, PROVIDER NOT IN Primary Care Unavaila ble ALEXUS AVILES Attending Unavailable AV HARPER Attending Unavailab le NO, PHYSICIAN Primary Care Unavailable Paige Shine Attending Unavailable Kalisetti, Mick Primary Care Unavailable Kalisetti, Mick Referring Unavailable Weston Gibbs Attending Unavailable Kalisetti, Mick Primary Care Unavailable Binh Mckee Attending Unavailable Kalisetti, Mick Primary Care Unavailable Kalisetti, Mick Primary Care Unavailable Compa Miranda Attending Unavailable Kalisetti, Mick Attending Unavailable Kalisetti, Mick Referring Unavailable Kalisetti, Mick Primary Care Unavailable Paige Shine Referring Unavailable Kalisetti, Mick Primary Care Unavailable Paige Shine Attending Unavailable Genesis Collazo Attending Unavailable Astrmsesi, Genesis Referring Unavailable Kalisetti, Mick Primary Care Unavailable Genesis Collazo Attending Unavailable Astreifrench, Vera Referring Unavailable Care Physician, No Primary Primary Care Unava ilable Broussard, Ray Attending Unavailable Care Physician, No Primary Primary Care Unava ilable Kalisetti, Mick Referring Unavailable Kalisetti, Mick Primary Care Unavailable Paige Shine Attending Unavailable Medications Current Medications Medication Drug Class(es) Dates Sig (Normalized) Sig (Original) acetaminophen 325 mg oral capsule (17 sources) Start: 09-11-2023 Tylenol 325 mg oral capsule Dose : 650 mg =, Oral, q4h, PRN Pain, scale 1-3, 0 Refill(s) Start Date: 09/11/23 Status: Ordered Repeat number: 1 Start: 10-12-2020 End: 10-12-2020 acetaminophen (TYLENOL) tabl et 1,000 mg Start: 10-12-2020 End: 10-12-2020 acetaminophen (TYLENOL) tabl et 1,000 mg acetaminophen 325 mg / oxyCODONE hydrochloride 5 mg oral tablet (3 sources) Opioid Agonist Start: 06-21-2025 End: 06-24-2025 take 1 tablet by mouth every eight hours as needed oxyCODONE-acetaminophen 5-325 MG per tablet Indications: Acute pancreatitis without infection or necrosis, unspecified pancreatitis type , Acute left flank pain Take 1 tablet by mouth every 8 hours as needed for up to 3 days. 9 tablet 06/21/2025 06/24/2025 Active Start: 02-24-2020 PERCOCET 5-325 MG TABS as needed for pain OXYCODONE-ACETAMINOPHEN [id number] Brenton Newell MD Aluminum Hydroxide / Magnesium Hydroxide / Simethicone (9 sources) Start: 09-11-2023 Maalox Oral, q2h, PRN Indigestion, 0 Refill(s) Start Date: 09/11/23 Status: Ordered amitriptyline hydrochloride 50 mg oral tablet (14 sources) Tricyclic Antidepressant Start: 10-12-2021 take 1-2 tablets by mouth at bedtime amitriptyline 50 MG tablet Take 1-2 tablets by mouth at bedtime. 10/12/2021 Active amoxicillin 875 mg / clavulanate 125 mg oral tablet (4 sources) Penicillin-class Antibacterial Start: 09-09-2024 End: 09-16-2024 take 1 tablet by mouth every twelve hours Amoxicillin-clavul anate 875-125 MG tablet Take 1 tablet by mouth every 12 hours for 7 days. 14 tablet 09/09/2024 09/16/2024 Active Start: 02-14-2024 End: 02-24-2024 take 1 tablet by mouth every twelve hours amoxicillin-clavulanate 875 mg-125 mg or al tablet 1 tab(s), Oral, q12h, X 10 day(s), # 20 tab(s), 0 Refill(s), 02/24/24 8:42:00 AM EDT, Pharmacy: [id number], 172.7, cm, 02/14/24 7:03:00 EDT, Height, 97, kg, 02/14/24 7:03:00 EDT, Dosing Weight Start Date: 02/14/24 Stop Date: 02/24/24 Status: Ordered Start: 01-16-2024 End: 01-23-2024 take 1 tablet by mouth every twelve hours amoxicillin-clavulanate 875 mg-125 mg or al tablet 1 tab(s), Oral, q12h, X 7 day(s), # 14 tab(s), 0 Refill(s), 01/23/24 11:06:00 AM EDT, Pharmacy: [id number], 172.7, cm, 01/16/24 7:07:00 EDT, Height, 96.3, kg, 01/16/24 7:07:00 EDT, Dosing Weight Start Date: 01/16/24 Stop Date: 01/23/24 Status: Ordered 12 hr buPROPion hydrochloride 150 mg extended release oral tablet (20 sources) Aminoketone Start: 10-10-2020 buPROPion 150 MG tablet SR 10/10/2020 Active Start: 10-10-2020 take 2 tablets by mo uth in the morning buPROPion 150 MG tablet SR TAKE 2 TABLETS BY MOUTH IN THE MORNING 10/10/2020 Active Start: 01-14-2019 End: 05-13-2025 take 1 tablet by mouth twice daily Bupropion Hcl 150 MG tablet extended release 24 hr Discontinued 150 mg PO TWICE A DAY January 14, 2019 12:00am May 13, 2025 11:46am Start: 12-20-2014 End: 11-07-2019 take 1 tablet by mouth twice daily buPROPion 150 mg/12 hours (SR) oral tablet, extended release ; 1 tab(s) orally 2 times a day Quantity: 14 Refills: 0 Ordered: 31-Oct-2019 Anthony Wesley Start: 31-Oct-2019 End: 06-Nov-2019 Generic Substitution Allowed Comments: Check with your doctor before becoming .Do not drink alcoholic beverages when taking this medication.It is very important that you take or use this exactly as directed. Do not skip doses or discontinue unless directed by your doctor.Obtain medical advice before taking any non-prescription drugs as some may affect the action of this medication.Swallow whole. Do not crush.This drug may impair the ability to drive or operate machinery. Use care until you become familiar with its effects. Comment on above: Check with your doct or before becoming .Do not drink alcoholic beverages when taking this medication.It is very important that you take or use this exactly as directed. Do not skip doses or discontinue unless directed by your doctor.Obtain medical advice before taking any non-prescription drugs as some may affect the action of this medication.Swallow whole. Do not crush.This drug may impair the ability to drive or operate machinery. Use care until you become familiar with its effects. chlorhexidine gluconate 1.2 mg/ml mouthwash (5 sources) Start: chlorhexidine 0.12 % Solution oral solution Rinse mouth with 15mL for 30sec then spit BID 118 mL 09/09/2024 Active cyclobenzaprine hydrochloride 10 mg oral tablet (20 sources) Muscle Relaxant Start: 025 take 1 tablet by mouth three times daily as needed for muscle spasms Start: 06-22-2025 take 1 tablet by anibal th three times daily as needed for muscle spasms Cyclobenzaprine 10 MG tablet Take 1 tablet by mouth 3 times daily as needed for Muscle spasms. 21 tablet 06/22/2025 Active Start: 09-12-2021 End: 07-20-2025 take 1 tablet by mouth three times daily as needed for muscle spasms Cyclobenzaprine 10 mg tablet Discontinued 10 mg PO THREE TIMES A DAY as needed for muscle spasm 30 0 June 07, 2025 11:53am July 20, 2025 2:44pm 1 ml dexamethasone phosphate 10 mg/ml injection (7 sources) Corticosteroid Start: 08-04-2021 dexAMETHasone PF (DECADRON) injection 10 mg Start: 03-23-2021 dexAMETHasone PF (DECADRON) injection 10 mg Start: 01-13-2021 End: 01-13-2021 dexAMETHasone PF (DECADRON) injection 10 mg Start: 12-23-2020 End: 12-30-2020 dexAMETHasone PF (DECADRON) injection 10 mg diclofenac sodium 50 mg delayed release oral tablet (12 sources) Nonsteroidal Anti-inflammatory Drug Start: 09-12-2021 End: 10-12-2021 take 1 tablet by mouth twice daily diclofenac sodium [address] Indications: Cervical radiculopathy , Chronic pain syndrome , Right hip pain , Sacroiliitis , Cervical facet syndrome Take 1 tablet by mouth 2 times daily. 60 tablet 2 09/12/2021 Active docusate sodium 100 mg oral capsule (9 sources) Start: 09-11-2023 Colace 100 mg oral capsule Dose : 100 mg = 1 cap(s), Oral, BID, PRN Constipation, 0 Refill(s) Start Date: 09/11/23 Status: Ordered ibuprofen 400 mg oral tablet (7 sources) Nonsteroidal Anti-inflammatory Drug Start: 10-12-2020 ibuprofen (MOTRIN) tablet 800 mg Start: 10-12-2020 End: 11-15-2020 take 1 tablet by mouth every six hours as needed ibuprofen 800 MG tablet Take 1 tablet by mouth every 6 hours as needed. 30 tablet 0 10/12/2020 11/15/2020 Discontinued (Therapy completed) Start: 05-11-2020 End: 05-11-2020 ibuprofen (ADVIL,MOTRIN) tab let 400 mg Start: 05-11-2020 End: 06-10-2020 take 1 tablet by mouth every six hours as needed ibuprofen (ADVIL,MOTRIN) 600 MG tablet Take 1 (one) tablet (600 mg total) by mouth every 6 (six) hours as needed for pain . 30 tablet 0 05/11/2020 06/10/2020 Active lidocaine 1% (PF) (XYLOCAINE MPF) 10 mL syringe (11 sources) Start: 11-17-2021 lidocaine 1% ( PF) (XYLOCAINE MPF) 10 mL syringe Start: 05-19-2021 End: 05-26-2021 lidocaine 1% (PF) (XYLOCAINE MPF) 10 mL syringe Start: 03-23-2021 End: 03-31-2021 lidocaine 1% (PF) (XYLOCAINE MPF) 10 mL syringe Start: 01-13-2021 End: 01-20-2021 lidocaine 1% (PF) (XYLOCAINE MPF) 10 mL syringe Start: 12-23-2020 End: 12-30-2020 lidocaine 1% (PF) (XYLOCAINE MPF) 10 mL syringe lithium carbonate 300 mg ora l capsule (8 sources) Start: 05-13-2025 take 1 capsule by mo [facility] three times daily take 1 capsule by mouth twice da nathan [place] 300 MG capsule Take 1 capsule by mouth 2 times daily. Active meloxicam 15 mg oral tablet (14 sources) Nonsteroidal Anti-inflammatory Drug Start: 06-29-2021 take 1 tablet by mouth once daily meloxicam 15 MG tablet Indications: Cervical radiculopathy , Chronic pain syndrome , Right hip pain Take 1 tablet by mouth daily. 30 tablet 2 06/29/2021 Active Start: 04-13-2021 End: 05-13-2021 take 1 tablet by mouth once daily meloxicam 15 MG tablet Indications: Cervical radiculopathy , Chronic pain syndrome , Right hip pain Take 1 tablet by mouth daily. 30 tablet 2 04/13/2021 Active methylPREDNISolone 4 mg oral tablet (5 sources) Corticosteroid Start: 10-31-2024 End: 10-31-2024 inject 1 dose by intramuscular injection once 125 mg, Intramuscular, ONCE, 1 dose, On 10/31/24 at 2000 Start: 10-22-2023 End: 10-28-2023 Medrol Dosepak 4 mg oral tab let Per Dosepak Instructions, Oral, Daily, as directed on package labeling, X 6 day(s), # 1 EA, 0 Refill(s), 10/28/23 7:21:00 PM EST, Pharmacy: [id number], 172.7, cm, 10/07/23 8:56:00 EST, Height, kg, 10/07/23 8:56:00 EST, Dosing Weight Start Date: 10/22/23 Stop Date: 10/28/23 Status: Ordered Start: 09-13-2023 End: 09-19-2023 Medrol Dosepak 4 mg oral tab let 1 packet(s), Oral, qDay, as directed on package labeling, X 6 day(s), # 21 tab(s), 0 Refill(s), 09/19/23 7:36:00 PM EST Start Date: 09/13/23 Stop Date: 09/19/23 Status: Ordered Start: 05-30-2020 End: 05-30-2020 methylPREDNISolone sod suc(P F) (SOLU-medrol) Injection 125 mg mupirocin 0.02 mg/mg topical ointment (1 source) RNA Synthetase Inhibitor Antibacterial Start: 01-13-2024 mupirocin 2% top ical ointment Apply 1 kirk, Topical, BID, Bilateral intranasal application twice daily x 5 days pre-surgery., Apply to: nostril, each, # 22 gram(s), 0 Refill(s), Pharmacy: [id number], Ointment, 172, cm, 01/13/24 10:48:00 EDT, Height, 100.7, kg, 01/13/24 10:48:00 EDT, Dosing Weight Start Date: 01/13/24 Status: Ordered naproxen 250 mg oral tablet (10 sources) Nonsteroidal Anti-inflammatory Drug Start: 09-23-2023 naproxen 250 mg o ral tablet Dose : 250 mg = 1 tab(s), Oral, BID, # 60 tab(s), 0 Refill(s), Pharmacy: [id number], Post-operative pain, 172.7, cm, 09/13/23 16:48:00 EST, Height, kg, 09/13/23 16:48:00 EST, Dosing Weight Start Date: 09/23/23 Status: Ordered Start: 03-27-2021 End: 05-13-2025 take 1 tablet by mouth twice daily Naproxen (Naprosyn) 500 mg tablet Discontinued 500 mg PO TWICE A DAY March 27, 2021 12:00am May 13, 2025 11:46am Nyquil Cold and Flu (3 sources) Start: 08-27-2023 take 1 dose by mouth every six hours as needed Nyquil Cold and Flu Dose = 5 mL, Oral, q6hr, PRN as needed for cold symptoms, 0 Refill(s) Start Date: 08/27/23 Status: Ordered omeprazole 20 mg delayed release oral capsule (14 sources) Proton Pump Inhibitor Start: 10-12-2021 take 1 capsule by mouth once daily omeprazole [address] capsule Take 20 mg by mouth daily. 10/12/2021 Active predniSONE 20 mg oral tablet (15 sources) Start: 04-30-2025 predniSONE 20 MG tablet Take 3 tablets by mouth daily every morning. 3 TABS X 5 DAYS 15 tablet 04/30/2025 Active Start: 04-30-2025 End: 04-30-2025 take 1 dose by mouth once 60 mg, Oral, ONCE, 1 dose, O n 04/30/25 at 0200 Start: 04-21-2025 End: 05-13-2025 take 1 tablet by mouth twice daily Prednisone 20 mg tablet Discontinued 20 mg PO TWICE A DAY April 21, 2025 12:00am May 13, 2025 11:46am Start: 10-31-2024 End: 04-30-2025 take 1 tablet by mouth once daily predniSONE 20 MG tablet Take 1 tablet by mouth daily. 10 tablet 10/31/2024 04/30/2025 Discontinued (Side effects) Start: 11-22-2020 End: 12-30-2020 take 7 tablets by mouth once daily, then take 1 tablet by mouth, then take 1 tablet by mouth once daily predniSONE 10 MG tablet Indications: Cervical radiculopathy 7 pills po day 1; 6 pills on day 2, etc. Decrease by 1 pill q day till out. 28 tablet 0 11/22/2020 12/30/2020 Discontinued (Therapy completed) pregabalin 25 mg oral capsul e (8 sources) Start: 05-29-2022 pregabalin 25 MG capsule Indications: Chronic pain syndrome , Polyneuropathy , Sacroiliitis , Cervical radiculopathy Take 1 capsule by mouth at bedtime for 14 days. Then stop. This is a weaning prescription. 14 capsule 05/29/2022 Active Start: 05-15-2022 End: 06-14-2022 take 1 capsule by mouth at bedtime pregabalin 50 MG capsule Indications: Chronic pain syndrome , Cervical facet syndrome , Occipital neuralgia of left side , Myofascial pain Take 1 capsule by mouth at bedtime. STOP gabapentin 30 capsule 1 05/15/2022 06/14/2022 Active tiZANidine 4 mg oral tablet (20 sources) Central alpha-2 Adrenergic Agonist Start: 09-11-2023 End: 11-05-2024 take 1 tablet by mouth three times daily tiZANidine 4 MG tablet Take 1 tablet by mouth 3 times daily for 5 days. 15 tablet 10/31/2024 Active Completed/Discontinued Medications Medication Drug Class(es) Dates Sig (Normalized) Sig (Original) acetaminophen 325 mg / HYDROcodone bitartrate 5 mg oral tablet (20 sources) Opioid Agonist Start: 04-21-2025 End: 05-13-2025 Hydrocodone-Acetami nophen 5-325 mg tablet Discontinued 1 {tbl} PO EVERY 4 HOURS NEEDED as needed for Pain 10 2 0 April 21, 2025 May 13, 2025 11:46am Back pain Dorsalgia, unspecified Start: 10-31-2024 End: 10-31-2024 Oral, SEE ADMIN INSTRUCTIONS , Starting on 10/31/24 at 2000, Until 10/31/24 at 2250, Provide patient with 4 pack of Acetaminophen/Hydrocodone 325-5 mg, take 1 or 2 tabs by mouth every 4 hours as needed for pain. Nursing to document as GIVEN on the MAR and include comment of patient receipt of the 4 pack. Start: 09-09-2024 End: 09-09-2024 take 1 tablet by mouth every twenty-four hours 1 tablet, Oral, ONCE, 1 dose, On Sat09/09/24 at 2015, Maximum dose of acetaminophen is 4000 mg from all sources in 24 hours. Start: 09-09-2024 End: 06-21-2025 take 1 tablet by mouth every six hours as needed for pain hydroCODone-acetaminophen 5-325 MG table t Indications: Pain, dental , Left facial pain Take 1 tablet by mouth every 6 hours as needed for Severe Pain (Do not drink alcohol, drive or operate machinery while taking this medication.) for up to 1 day. 2 tablet 09/09/2024 06/21/2025 Discontinued (Therapy completed) Start: 02-14-2024 End: 02-21-2024 [place] 325- 5 mg oral tablet 1-2 tab(s), Oral, q6h, PRN for pain, Take 1 tablet for pain levl 4-6 or take 2 tablets for pain level 7-10. Do not exceed 6 tablets/day., X 7 day(s), # 42 tab(s), 0 Refill(s), Pharmacy: [id number], Post-op pain, 172.7, cm, 02/14/24 7:03:00 EDT, Height, 97, kg, 02/14/24 7:03:00 EDT, Dosing Weight Start Date: 02/14/24 Stop Date: 02/21/24 Status: Ordered Start: 01-16-2024 End: 01-23-2024 take 1 tablet by mouth every six hours as needed for pain [place] 325- 5 mg oral tablet Dose = 1 tab(s), Oral, q6h, PRN for pain, X 7 day(s), # 28 tab(s), 0 Refill(s), Pharmacy: [id number], Spinal cord stimulator status, 172.7, cm, 01/16/24 7:07:00 EDT, Height, 96.3, kg, 01/16/24 7:07:00 EDT, Dosing Weight Start Date: 01/16/24 Stop Date: 01/23/24 Status: Ordered Start: 09-11-2023 End: 09-18-2023 [place] 325- 5 mg oral tablet 1-2 tab(s), Oral, q6hr, PRN as needed for pain, Please take 1 tablet for pain level 4-6 or take 2 tablets for pain level 7-10. Do not exceed 6 tablets/day, X 7 day(s), # 42 tab(s), 0 Refill(s), Pharmacy: [id number], S/P lumbar laminectomy, 172.7, cm, 09/10/23 12:46:00 EST, Height, 98, kg, 09/10/23 12:46:00 EST, Dosing Weight Start Date: 09/11/23 Stop Date: 09/18/23 Status: Ordered Start: 06-25-2023 End: 07-25-2023 take 1 tablet by mouth every six hours as needed for pain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 provider listed on their discharge instructions or a physician of their choice as soon as possible to arrange follow-up in the next 4 weeks for further evaluation of possible pre-hypertension or hypertension. . Clinical Impression: 1. Bronchitis 2. Bilateral otitis media, unspecified otitis media type ED Disposition ED Disposition Discharge Condition Stable Comment Ajit Ramo Zhu discharged to home/self care in stable condition. Follow-up Information 1. [facility]. [address] [place] [address] Contact information for after-discharge care Follow-up information has not been specified. New Prescriptions cefdinir (OMNICEF) 300 MG capsule Take 1 (one) capsule (300 mg total) by mouth 2 (two) times a day for 10 days . dextromethorphan-guaiFE Nesin 10-200 mg/5 mL Liqd Take 2 teaspoons p.o. every 6 hours as needed cough. . Discontinued Medications Disp Refills Start End cloNIDine HCL (CATAPRES) 0.1 MG tablet -- -- 12/20/2014 07/29/2025 Class: Historical Med Reason for Discontinue: Error ondansetron (ZOFRAN-ODT) 4 MG disintegrating tablet 10 tablet 0 12/19/2023 07/29/2025 Sig: Dissolve 1 (one) tablet (4 mg total) on top of tongue every 8 (eight) hours as needed for nausea . Route: Oral Reason for (more content not included)... [facility] XR CHEST AP/PA AND LATon XR CHEST AP/PA AND LAT EXAMINATION: XR CHEST AP/PA AND LAT 07/29/2025 7:10 am HISTORY: ORDERING SYSTEM PROVIDED HISTORY: Cough x 4 days, TECHNOLOGIST PROVIDED HISTORY: Illness/Other Reason for exam: cough x4 days Cancer History: u Surgery, RadiationHistory: u Encounter Type: Initial Additional signs and symptoms: . ORDERING SYSTEM PROVIDED DIAGNOSIS CODES: COMPARISON: 05/11/2020 FINDINGS: Heart and vascularity are unremarkable. Left lung is unremarkable. There are a few increased markings in the right midlung field. No pleural effusions are noted. Grossly no acute bony abnormality is appreciated. There is a plate anchored by screws overlying the left clavicle which is unchanged. Stimulator leads overlie the lower thoracic spine. IMPRESSION: Small amount of atelectasis versus early infiltrate in the right midlung field. Workstation ID: [id number] Dictated by: HANNAH SANTOS on SatJul 29, 2025 7:14:19 AM EDT Transcribed by: HANNAH SANTOS on SatJul 29, 2025 7:14:19 AM EDT Finalized by: HANNAH SANTOS on SatJul 29, 2025 7:14:19 AM EDT [facility] Comment on above: Order Comment: Injur y/Trauma or Illness?:Illness/Other How long have you had these symptoms (acute/chronic)?:Acute Reason for exam?:cough x4 days History of cancer?:u Surgeries, chemotherapy, or radiation?:u Type of Exam?:Initial Additional signs and symptoms?:. Orthopedic Visit Reporton Orthopedic Visit Report [facility] [address] [place] [address] OFFICE VISIT Date of Service: 07/22/25 MR#: [id number] Acct: [id number] Name: MARKOAJIT Ramo Rep #: [id number] : 1985 Provider: MORGAN Ordonez Age/Sex: 40/M [place] [facility] [place] Status: Signed Intake Vital Signs 05/13/25 11:32 Height 5 ft 8 in Weight: 220 lb 2 oz BMI 33.5 Intake Visit Reasons: CERVICAL SPINE Allergies No Known Allergies Allergy (Verified 07/22/25 09:33) Medications ???Medication ???Instructions ???Recorded ???Confirmed ???Type lithium carbonate 300 mg capsule 300 mg PO TID 05/13/25 07/22/25 Hi story cyclobenzaprine 10 mg tablet 10 mg PO TID PRN muscle spasm #30 07/20/25 07/22/25 Rx tabs gabapentin 600 mg tablet 600 mg PO BID #60 tabs 07/20/25 Rx PFSH Medical History Difficulty controlling anger Bipolar 1 disorder Sleep apnea Depression Surgical History History of shoulder surgery History of repair of anterior cruciate ligament of right knee History of tonsillectomy History of surgery on left wrist Family History Brother Colon cancer, Onset Age: 29 Father Cancer liver Kidney disease Social History Smoking Status: Current every day smoker tobacco type: cigarettes HPI CERVICAL SPINE Details: This documentation accurately reflects the service provided and the decisions made by me, MORGAN Ordonez 07/22/25 0930. Part of today???s visit was documented by Miri YOUSIF, acting as scribe. AJIT ZHU is a 40 year old M here today for MRI review of the cervical spine. He states that his pain is progressively getting worse along with his numbness. He does still take gabapentin and cyclobenzaprine which do help to take the edge off. Patient continues to report dexterity changes in his left hand and has been dropping things out of him. He is right-hand dominant. Current smoker and smokes half a pack a day. No diabetes, no heart or lung issues, no blood thinners. HPI from 05/13/25: AJIT ZHU is a 39 year old M here today for neck pain that he has been having for 2 weeks now. Says that over the last 2 weeks the symptoms have been worsening. He denies any known injury or aggravating events. He states that his pain is on the left side of his neck and radiated down into his shoulder and under his armpit. Says that the left sided neck pain goes to the left shoulder and then down the back of his left arm all the way to his fingers. He does have numbness and tingling in his left shoulder that extends down his arm into his fingers. He denies any right sided involvement. He has not done any PT or seen pain management. He was given prednisone and gabap[facility] which did help with his pain but he ran out of the medications. He was also given cyclobenzaprine which was helpful but he has ran out of. He did have xrays at [facility] and as well as [facility]. He denies having an MRI of the neck. He does have weakness in the left arm. He has been having balance issues as well. Says that this balance issue started with the onset of his neck pain. Says that he has noticed some dexterity changes and has dropped things out of his left hand. The patient is right-hand dominant. He takes ibuprofen and Tylenol as needed however this has been no benefit to him. Ortho Exam General General: Yes no acute distress Neurologic: Yes alert and Yes oriented x3 Spine SPINE TESTING CERVICAL THORACIC LUMBAR Musculoskeletal Strength 0=absent - 5=normal Details: Neurological exam of the upper extremities shows 5X5 power. Normal sensation across all dermatomes. No hyperreflexia. Sarha's negative. There is both midline and left paraspinal tenderness. Romberg's positive. Coding Level of Care Code Off vis,est,level 4 Diagnoses Cervical myelopathy with cervical radiculopathy G95.9; M54.12 Degenerative disc disease, cervical M50.30 Spondylolisthesis of cervical region M43.12 Assessment and Plan Assessment and Plan (1) Cervical myelopathy with cervical radiculopathy: Status: Acute (2) Degenerative disc disease, cervical: Status: Acute (3) Spondylolisthesis of cervical region: Status: Acute Plan Again reviewed prior x-rays show a disc height loss at C5-6 with a mild retrolisthesis of C5 on C6, there is straightening of the normal cervical lordosis. There is some mild instability at the C5-6 level with dynamic views. Reviewed cervical MRI from July 08, 2025 which showed C5-6 moderately severe disc height loss, mild disc bulge and moderately severe facet arthropathy at this level, no significant cord compression se (more content not included)... Normal [facility] Magnetic resonance imaging r eportOrdered By: Martell Gil on 07-08-2025 Study report [facility] [address] [place], [place] [id number] Spine Cervical (Routine) MR#: [id number] Acct: [id number] Name: AJIT ZHU Rep #: [id number] : 1985 M 40 From: Herminio Gil MD PCP: Dr. Mick Leung MD Status: R EG CLI Study:Spine Cervical (Routine) Date of Exam: 07/08/25 Exam# [id number] Ordering Dr: Bo Shine PROCEDURE: SPINE CERVICAL (ROUTINE) 07/08/2025 REASON FOR EXAM: PAIN, MYELOPATHY AND RADICULOPATHY Left arm numbness. TECHNIQUE: Procedure Code: MRISP Modality: MR Procedure: SPINE CERVICAL (ROUTINE) Multiplanar and multisequence images were obtained without IV contrast administration. COMPARISON: None FINDINGS: Osseous: Cervical vertebral body heights are maintained. Posterior cervical alignment is anatomic. Cervical facet joints are not subluxed or dislocated. The atlantodental interval is maintained. Atlanto occipital and atlantoaxial articulations are within normal range. Bone marrow: There is diminished T1 marrow signal throughout the spine, nonspecific but couldbe seen with an underlying anemia and red marrow reconversion. Clinical correlation with hematocrit. This may also be seen in smokers or with obesity. There is mild bone marrow edema at the C5 and C6 levels, most likely reactive due to degenerative change. Modic endplate changes are also noted across the C5 and C6 level. There is no evidence of an acute osseous injury. Posterior fossa: There is no Chiari malformation. Visualized V4 segment vertebral artery flow voids are preserved bilaterally. Soft tissues: There is no prevertebral soft tissue swelling or retropharyngeal effusion. No posterior paraspinal soft tissue hematoma. Slight soft tissue prominence of the visualized nasopharyngeal adenoids to be correlated clinically with any symptoms. Lymph nodes: Multiple cervical lymph nodes seen bilaterally but not appearing pathologic by size criteria. Spinal cord: The cervical cord is unremarkable in signal and caliber. No evidence of syringohydromyelia. No cord edema or hemorrhage is seen. No myelomalacia. Cervical ligaments: The anterior longitudinal ligament is continuous without edema to suggest an acute injury. The posterior longitudinal ligament is continuous without visible disruption. No posterior interspinous or supraspinous ligamentous edema to suggest an acute injury. Paraspinal muscles: Paraspinal muscles appear symmetric without asymmetric unilateral atrophy. No muscle edema to suggest an acute sprain or myositis. Disc levels: C2/C3: There is moderate disc space loss. There is mild disc desiccation. No significant posterior disc displacement seen. No significant central canal or foraminal compromise is seen. C3/C4: There is mild posterior disc space loss. No significant posterior disc displacement seen. Mild facet arthropathy. Overall no significant central canal or foraminal compromise. C4/C5: There is mild posterior disc space loss and disc desiccation. No significant posterior disc displacement. Mild facet arthropathy and bony hypertrophy. Overall no significant appearing central canal or foraminal compromise. C5/C6: There is moderately severe disc space loss. There is complete disc desiccation. There is concentric posterior disc bulging slightly effacing the anterior thecal sac and extending towards the foraminal zones bilaterally. No disc herniation is seen. Moderately severe facet arthropathy with mild hypertrophy noted. There is mild ligamentum flavum hypertrophy. No cord compression is seen. Concentric disc bulge extending into the foraminal zones along with facet arthropathy results in moderate to severe rqyi-hpllwdb-wtdr-right foraminal compromise. C6/C7: There is mild disc space loss. There is disc desiccation. Mild concentric discbulge slightly effacing the anterior thecal sac and also extending into the foraminal zones. Mild facet arthropathy and bony hypertrophy noted. Overall no significant appearing central canal compromise. There is moderately severe bilateral foraminal narrowing. C7/T1: Disc spacing is maintained. Disc hydration is maintained. No posterior disc displacement is seen. There is mild facet arthropathy. Overall no significant central canal or foraminal compromise seen. Epidural space: There is mild epidural fluid or edema surrounding the C5/C6 disc displacement. This may be a reactive effusion. No other epidural fluid collection seen. MRI/Spine Cervical (Routine) IMPRESSION: No acute injury of the cervical spine seen. - Degenerative changes of the cervical spine are noted with findings most pronounced at the C5/C6 and C6/C7 levels where there is compromised to the foramina as discussed above in detail. - Other findings discussed above in detail. Reading Location: [id number] CC: MORGAN Ordonez; Dr. Mick Leung MD ~ Meter Tester Primary: Signed [facility] Spine Cervical (Routine)on 0 07-08-2025 Spine Cervical (Routine) [facility] [address] [place], [place] [id number] Spine Cervical (Routine) MR#: [id number] Acct: [id number] Name: AJIT ZHU Rep #: [id number] : 1985 M 40 From: Martell Gil MD PCP: Dr. Mick Leung MD Status: REG CLI Study: Spine Cervical (Routine) Date of Exam: Exam# [id number] Ordering Dr: Paige Shine PROCEDURE: SPINE CERVICAL (ROUTINE) 07/08/2025 REASON FOR EXAM: PAIN, MYELOPATHY AND RADICULOPATHY Left arm numbness. TECHNIQUE: Procedure Code: MRISP Modality: MR Procedure: SPINE CERVICAL (ROUTINE) Multiplanar and multisequence images were obtained without IV contrast administration. COMPARISON: None FINDINGS: Osseous: Cervical vertebral body heights are maintained. Posterior cervical alignment is anatomic. Cervical facet joints are not subluxed or dislocated. The atlantodental interval is maintained. Atlanto occipital and atlantoaxial articulations are within normal range. Bone marrow: There is diminished T1 marrow signal throughout the spine, nonspecific but could be seen with an underlying anemia and red marrow reconversion. Clinical correlation with hematocrit. This may also be seen in smokers or with obesity. There is mild bone marrow edema at the C5 and C6 levels, most likely reactive due to degenerative change. Modic endplate changes are also noted across the C5 and C6 level. There is no evidence of an acute osseous injury. Posterior fossa: There is no Chiari malformation. Visualized V4 segment vertebral artery flow voids are preserved bilaterally. Soft tissues: There is no prevertebral soft tissue swelling or retropharyngeal effusion. No posterior paraspinal soft tissue hematoma. Slight soft tissue prominence of the visualized nasopharyngeal adenoids to be correlated clinically with any symptoms. Lymph nodes: Multiple cervical lymph nodes seen bilaterally but not appearing pathologic by size criteria. Spinal cord: The cervical cord is unremarkable in signal and caliber. No evidence of syringohydromyelia. No cord edema or hemorrhage is seen. No myelomalacia. Cervical ligaments: The anterior longitudinal ligament is continuous without edema to suggest an acute injury. The posterior longitudinal ligament is continuous without visible disruption. No posterior interspinous or supraspinous ligamentous edema to suggest an acute injury. Paraspinal muscles: Paraspinal muscles appear symmetric without asymmetric unilateral atrophy. No muscle edema to suggest an acute sprain or myositis. Disc levels: C2/C3: There is moderate disc space loss. There is mild disc desiccation. No significant posterior disc displacement seen. No significant central canal or foraminal compromise is seen. C3/C4: There is mild posterior disc space loss. No significant posterior disc displacement seen. Mild facet arthropathy. Overall no significant central canal or foraminal compromise. C4/C5: There is mild posterior disc space loss and disc desiccation. No significant posterior disc displacement. Mild facet arthropathy and bony hypertrophy. Overall no significant appearing central canal or foraminal compromise. C5/C6: There is moderately severe disc space loss. There is complete disc desiccation. There is concentric posterior disc bulging slightly effacing the anterior thecal sac and extending towards the foraminal zones bilaterally. No disc herniation is seen. Moderately severe facet arthropathy with mild hypertrophy noted. There is mild ligamentum flavum hypertrophy. No cord compression is seen. Concentric disc bulge extending into the foraminal zones along with facet arthropathy results in moderate to severe mmaf-wdktrxk-pbpd-right foraminal compromise. C6/C7: There is mild disc space loss. There is disc desiccation. Mild concentric disc bulge slightly effacing the anterior thecal sac and also extending into the foraminal zones. Mild facet arthropathy and bony hypertrophy noted. Overall no significant appearing central canal compromise. There is moderately severe bilateral foraminal narrowing. C7/T1: Disc spacing is maintained. Disc hydration is maintained. No posterior disc displacement is seen. There is mild facet arthropathy. Overall no significant central canal or foraminal compromise seen. Epidural space: There is mild epidural fluid or edema surrounding the C5/C6 disc displacement. This may be a reactive effusion. No other epidural fluid collection seen. MRI/Spine Cervical (Routine) IMPRESSION: No acute injury of the cervical spine seen. - Degenerative changes of the cervical spine are noted with findings most pronounced at the C5/C6 and C6/C7 levels where there is compromised to the foramina as discussed above in detail. - Other findings discussed above in detai (more content not included)... Normal [facility] CMP FASTINGon 06-22-2025 A:G RATIO 1.4 RATIO Normal [facility] Comment on above: Performed By: #### L IPA2, MG, ACBC, CMPF #### Testing performed at [address] [address] Albumin [Mass/Vol] 4.0 g/dL Normal 3.5-5.0 [facility] Comment on above: Performed By: #### L IPA2, MG, ACBC, CMPF #### Testing performed at [address] [address] ALP [Catalytic activity/Vol] 88 U/L Normal 38-126 [facility] Comment on above: Performed By: #### L IPA2, MG, ACBC, CMPF #### Testing performed at [address] [address] ALT [Catalytic activity/Vol] 49 U/L Normal <50 [facility] Comment on above: Performed By: #### L IPA2, MG, ACBC, CMPF #### Testing performed at [address] [address] AST [Catalytic activity/Vol] 38 U/L Normal 17-59 [facility] Comment on above: Performed By: #### L IPA2, MG, ACBC, CMPF #### Testing performed at [address] [address] Bilirubin [Mass/Vol] 0.4 mg/dL Normal 0.2-1.3 [facility] Comment on above: Performed By: #### L IPA2, MG, ACBC, CMPF #### Testing performed at [address] [address] Calcium [Mass/Vol] 9.5 mg/dL Normal 8.4-10.2 [facility] Comment on above: Performed By: #### L IPA2, MG, ACBC, CMPF #### Testing performed at [address] [address] Chloride [Moles/Vol] 105 mmol/L Normal 98-107 [facility] Comment on above: Result Comment: Amber nuñez note: Triglyceride levels of 600mg/dL or higher may positively bias chloride results by approximately 2.1 mmol Performed By: #### L IPA2, MG, ACBC, CMPF #### Testing performed at [place] [id number] CO2 [Moles/Vol] 26 mmol/L Normal 22-30 [facility] Comment on above: Performed By: #### L IPA2, MG, ACBC, CMPF #### Testing performed at [place] [id number] Creatinine [Mass/Vol] 1.10 mg/dL Normal 0.70-1.20 [facility] Comment on above: Performed By: #### L IPA2, MG, ACBC, CMPF #### [place] [address] GFR Information Average GFR for 40-4 9 years old = 99. Normal [facility] Comment on above: Result Comment: Business Quality Assurance Analyst gayathri Kidney disease, GFR = <60. Kidney failure, GFR = <15. The GFR estimate is not adjusted for extreme body surface area or acute process, nor has it been validated for women or ethnic groups other than and . MDRD Equation Performed By: #### L IPA2, MG, ACBC, CMPF #### Testing performed at [place] [id number] GFR/1.73 sq M.predicted MDRD (S/P/Bld) [Vol rate/Area] 78 mL/min/{1.73_m2} Normal [facility] Comment on above: Performed By: #### L IPA2, MG, ACBC, CMPF #### Testing performed at [address] [address] Glucose [Mass/Vol] 106 mg/dL High 70-100 [facility] Comment on above: Result Comment: NORMAL <100 mg/dL PREDIABETES 101-126 mg/dL DIABETES 126 mg/dL or higher Performed By: #### L IPA2, MG, ACBC, CMPF #### Testing performed at [address] [address] Potassium [Moles/Vol] 4.0 mmol/L Normal 3.5-5.1 [facility] Comment on above: Performed By: #### L IPA2, MG, ACBC, CMPF #### Testing performed at [address] [address] Protein [Mass/Vol] 6.8 g/dL Normal 6.3-8.2 [facility] Comment on above: Performed By: #### L IPA2, MG, ACBC, CMPF #### Testing performed at [address] [address] Sodium [Moles/Vol] 137 mmol/L Normal 137-145 [facility] Comment on above: Performed By: #### L IPA2, MG, ACBC, CMPF #### [place] [address] Urea nitrogen [Mass/Vol] 13 mg/dL Normal 7-20 [facility] Comment on above: Performed By: #### L IPA2, MG, ACBC, CMPF #### Testing performed at [place] [id number] COMPREHENSIVE METABOLIC PANE Suresh 06-22-2025 Albumin [Mass/Vol] 4.0 g/dL 3.5 - 5.0 g/dL [facility] Albumin/Globulin [Mass ratio] 1.4 {ratio} RATIO [facility] ALP [Catalytic activity/Vol] 88 U/L 38 - 126 U/L [facility] ALT [Catalytic activity/Vol] 49 U/L NINF - 50 U/L [facility] AST [Catalytic activity/Vol] 38 U/L 17 - 59 U/L [facility] Bilirubin [Mass/Vol] 0.4 mg/dL 0.2 - 1 .3 mg/dL [facility] Calcium [Mass/Vol] 9.5 mg/dL 8.4 - 10. 2 mg/dL [facility] Chloride [Moles/Vol] 105 mmol/L [facility] Comment on above: Please note: Triglyc eride levels of 600mg/dL or higher may positively bias chloride results by approximately 2.1 mmol CO2 [Moles/Vol] 26 mmol/L [facility] Creatinine [Mass/Vol] 1.10 mg/dL 0.70 - 1.20 mg/dL [facility] GFR COMMENT Average GFR for 40-4 9 years old = 99. [facility] Comment on above: Chronic Kidney disea se, GFR = <60. Kidney failure, GFR = <15. The GFR estimate is not adjusted for extreme body surface area or acute process, nor has it been validated for women or ethnic groups other than and . MDRD Equation GFR/1.73 sq M.predicted MDRD (S/P/Bld) [Vol rate/Area] 78 mL/min/{1.73_m2} ml/min/1.73sq. m [facility] Glucose post fast [Mass/Vol] 106 mg/dL High [facility] Comment on above: NORMAL <100 mg/dL PREDIABETES 101-126 mg/dL DIABETES 126 mg/dL or higher Interpretation and review of laboratory results Abnormal [facility] Potassium [Moles/Vol] 4.0 mmol/L [facility] Protein [Mass/Vol] 6.8 g/dL 6.3 - 8.2 g/dL [facility] Sodium [Moles/Vol] 137 mmol/L [facility] Urea nitrogen [Mass/Vol] 13 mg/dL 7 - 20 mg/dL [facility] LIPASEon 06-22-2025 Lipase [Catalytic activity/Vol] 156 U/L 23 - 300 U/L [facility] LIPASE,SERUMon 06-22-2025 LIPASE,SERUM 156 U/L Normal 23-300 [facility] Comment on above: Performed By: #### L IPA2, MG, ACBC, CMPF #### [place] [address] MAGNESIUMon 06-22-2025 Magnesium [Mass/Vol] 2.0 mg/dL [facility] Magnesium [Mass/Vol] 2.0 mg/dL Normal 1.6-2.3 [facility] Comment on above: Performed By: #### L IPA2, MG, ACBC, CMPF #### Testing performed at [place] [id number] No Panel Informationon 06-22 [facility] CBCon 06-21-2025 ABSOLUTE BAS 0.1 10*3/uL Normal 0.0-0.2 [facility] Comment on above: Performed By: #### L IPA2, MG, ACBC, CMPF #### Testing performed at [address] [address] ABSOLUTE EOS 0.4 10*3/uL Normal 0.0-0.7 [facility] Comment on above: Performed By: #### L IPA2, MG, ACBC, CMPF #### Testing performed at [address] [address] ABSOLUTE NEUTROPHIL COUNT 6.0 10*3/uL Normal 1.4-6.5 [facility] Comment on above: Performed By: #### L IPA2, MG, ACBC, CMPF #### Testing performed at [address] [address] Basophils/100 WBC (Bld) 0.6 % Normal 0.0-2.0 [facility] Comment on above: Performed By: #### L IPA2, MG, ACBC, CMPF #### Testing performed at [address] [address] DTYPE AUTO DIFF Normal [facility] Comment on above: Performed By: #### L IPA2, MG, ACBC, CMPF #### Testing performed at [address] [address] Eosinophils/100 WBC (Bld) 3.4 % Normal 0.0-11.0 [facility] Comment on above: Performed By: #### L IPA2, MG, ACBC, CMPF #### Testing performed at [address] [address] Lymphocytes (Bld) [#/Vol] 3.2 10*3/uL Normal 1.2-3.4 [facility] Comment on above: Performed By: #### L IPA2, MG, ACBC, CMPF #### Testing performed at [address] [address] Lymphocytes/100 WBC (Bld) 30.4 % Normal 20.0-55.0 [facility] Comment on above: Performed By: #### L IPA2, MG, ACBC, CMPF #### Testing performed at [address] [address] Monocytes (Bld) [#/Vol] 0.9 10*3/uL High 0.0-0.7 [facility] Comment on above: Performed By: #### L IPA2, MG, ACBC, CMPF #### Testing performed at [address] [address] Monocytes/100 WBC (Bld) 8.4 % Normal 0.0-10.0 [facility] Comment on above: Performed By: #### L IPA2, MG, ACBC, CMPF #### Testing performed at [address] [address] Neutrophils/100 WBC (Bld) 57.2 % Normal 37.0-75.0 [facility] Comment on above: Performed By: #### L IPA2, MG, ACBC, CMPF #### Testing performed at [address] [address] Erythrocyte distribution width (RBC) [Ratio] 13.1 % Normal 11.5-14.5 [facility] Comment on above: Performed By: #### L IPA2, MG, ACBC, CMPF #### Testing performed at [address] [address] Hematocrit (Bld) [Volume fraction] 45.6 % Normal 42.0-52.0 [facility] Comment on above: Performed By: #### L IPA2, MG, ACBC, CMPF #### Testing performed at [address] [address] Hemoglobin (Bld) [Mass/Vol] 15.9 g/dL Normal 14.0-18.0 [facility] Comment on above: Performed By: #### L IPA2, MG, ACBC, CMPF #### Testing performed at [address] [address] MCH (RBC) [Entitic mass] 33.1 pg Normal 26.0-35.0 [facility] Comment on above: Performed By: #### L IPA2, MG, ACBC, CMPF #### Testing performed at [address] [address] MCHC (RBC) [Mass/Vol] 34.8 g/dL Normal 27.0-37.0 [facility] Comment on above: Performed By: #### L IPA2, MG, ACBC, CMPF #### Testing performed at [address] [address] MCV (RBC) [Entitic vol] 95.0 fL Normal 80.0-100.0 [facility] Comment on above: Performed By: #### L IPA2, MG, ACBC, CMPF #### Testing performed at [address] [address] Platelet mean volume (Bld) [Entitic vol] 9.8 fL Normal 7.4-11.0 [facility] Comment on above: Performed By: #### L IPA2, MG, ACBC, CMPF #### Testing performed at [address] [address] Platelets (Bld) [#/Vol] 197 10*3/uL Normal 130-400 [facility] Comment on above: Performed By: #### L IPA2, MG, ACBC, CMPF #### Testing performed at [address] [address] RBC (Bld) [#/Vol] 4.80 10*6/uL Normal 4.0-6.1 [facility] Comment on above: Performed By: #### L IPA2, MG, ACBC, CMPF #### Testing performed at [address] [address] WBC (Bld) [#/Vol] 10.4 10*3/uL Normal 3.6-11.0 [facility] Comment on above: Performed By: #### L IPA2, MG, ACBC, CMPF #### Testing performed at [address] [address] Basophils/100 WBC (Bld) 1 % Normal 0.0-2.0 [facility] Comment on above: Performed By: #### L IVR, CHEM7F, LIPA2, ACBC ####Testing performed at [address] [place] [address] DTYPE AUTO DIFF RESULTS VERIFIED BY SCAN Normal [facility] Comment on above: Performed By: #### L IVR, CHEM7F, LIPA2, ACBC ####Testing performed at [address] [address] Eosinophils/100 WBC (Bld) 3 % Normal 0.0-11.0 [facility] Comment on above: Performed By: #### L IVR, CHEM7F, LIPA2, ACBC ####Testing performed at [address] [address] Lymphocytes/100 WBC (Bld) 22 % Normal 20.0-55.0 [facility] Comment on above: Performed By: #### L IVR, CHEM7F, LIPA2, ACBC ####Testing performed at [address] [address] Monocytes/100 WBC (Bld) 8 % Normal 0.0-10.0 [facility] Comment on above: Performed By: #### L IVR, CHEM7F, LIPA2, ACBC ####Testing performed at [address] [address] Neutrophils/100 WBC (Bld) 66 % Normal 37.0-75.0 [facility] Comment on above: Performed By: #### L IVR, CHEM7F, LIPA2, ACBC ####Testing performed at [address] [address] PLATELET COMMENT GIANT PLTS Normal [facility] Comment on above: Result Comment: ADEQ UATE Performed By: #### L IVR, CHEM7F, LIPA2, ACBC ####Testing performed at [address] [address] RBC morphology finding Nom (Bld) NORMAL Normal [facility] Comment on above: Performed By: #### L IVR, CHEM7F, LIPA2, ACBC ####Testing performed at [address] [address] Erythrocyte distribution width (RBC) [Ratio] 13.2 % Normal 11.5-14.5 [facility] Comment on above: Performed By: #### L IVR, CHEM7F, LIPA2, ACBC ####Testing performed at [address] [address] Hematocrit (Bld) [Volume fraction] 50.4 % Normal 42.0-52.0 [facility] Comment on above: Performed By: #### L IVR, CHEM7F, LIPA2, ACBC ####Testing performed at [address] [address] Hemoglobin (Bld) [Mass/Vol] 17.7 g/dL Normal 14.0-18.0 [facility] Comment on above: Performed By: #### L IVR, CHEM7F, LIPA2, ACBC ####Testing performed at [address] [address] MCH (RBC) [Entitic mass] 33.4 pg Normal 26.0-35.0 [facility] Comment on above: Performed By: #### L IVR, CHEM7F, LIPA2, ACBC ####Testing performed at [address] [address] MCHC (RBC) [Mass/Vol] 35.1 g/dL Normal 27.0-37.0 [facility] Comment on above: Performed By: #### L IVR, CHEM7F, LIPA2, ACBC ####Testing performed at [place] [id number] MCV (RBC) [Entitic vol] 95.0 fL Normal 80.0-100.0 [facility] Comment on above: Performed By: #### L IVR, CHEM7F, LIPA2, ACBC ####Testing performed at [address] [address] Platelet mean volume (Bld) [Entitic vol] 10.2 fL Normal 7.4-11.0 [facility] Comment on above: Performed By: #### L IVR, CHEM7F, LIPA2, ACBC ####Testing performed at [address] [address] Platelets (Bld) [#/Vol] 202 10*3/uL Normal 130-400 [facility] Comment on above: Performed By: #### L IVR, CHEM7F, LIPA2, ACBC ####Testing performed at [address] [address] RBC (Bld) [#/Vol] 5.31 10*6/uL Normal 4.0-6.1 [facility] Comment on above: Performed By: #### L IVR, CHEM7F, LIPA2, ACBC ####Testing performed at [address] [address] WBC (Bld) [#/Vol] 10.0 10*3/uL Normal 3.6-11.0 [facility] Comment on above: Performed By: #### L IVR, CHEM7F, LIPA2, ACBC ####Testing performed at [address] [address] CBC, EDIF, PLATELETon 2024 ABSOLUTE BASOPHIL COUNT 0.1 10*3/uL 0.0 - 0.2 10*3/uL [facility] Basophils/100 WBC (Bld) 0.6 % 0.0 - 2.0 % [facility] Differential cell count method Nom (Bld) AUTO DIFF % [facility] Eosinophils (Bld) [#/Vol] 0.4 10*3/uL 0.0 - 0.7 10*3/uL [facility] Eosinophils/100 WBC (Bld) 3.4 % 0.0 - 11.0 % [facility] Erythrocyte distribution width (RBC) [Ratio] 13.1 % 11.5 - 14.5 % [facility] Hematocrit (Bld) [Volume fraction] 45.6 % 42.0 - 52.0 % [facility] Hemoglobin (Bld) [Mass/Vol] 15.9 g/dL [facility] Interpretation and review of laboratory results Abnormal [facility] Lymphocytes (Bld) [#/Vol] 3.2 10*3/uL 1.2 - 3.4 10*3/uL [facility] Lymphocytes/100 WBC (Bld) 30.4 % 20.0 - 55.0 % [facility] MCH (RBC) [Entitic mass] 33.1 pg 26.0 - 35.0 PG [facility] MCHC (RBC) [Mass/Vol] 34.8 g/dL [facility] MCV (RBC) [Entitic vol] 95.0 fL [facility] Monocytes (Bld) [#/Vol] 0.9 10*3/uL High 0.0 - 0.7 10*3/uL [facility] Monocytes/100 WBC (Bld) 8.4 % 0.0 - 10.0 % [facility] Neutrophils (Bld) [#/Vol] 6.0 10*3/uL 1.4 - 6.5 10*3/uL [facility] Neutrophils/100 WBC (Bld) 57.2 % 37.0 - 75.0 % [facility] Platelet mean volume (Bld) [Entitic vol] 9.8 fL [facility] Platelets (Bld) [#/Vol] 197 10*3/uL 130 - 400 10*3/uL [facility] RBC (Bld) [#/Vol] 4.80 10*6/uL 4.0 - 6.1 10*6/uL [facility] WBC (Bld) [#/Vol] 10.4 10*3/uL 3.6 - 11.0 10*3/uL [facility] Basophils/100 WBC (Bld) 1 % 0.0 - 2.0 % [facility] Differential cell count method Nom (Bld) AUTO DIFF RESULTS VERIFIED BY SCAN % [facility] Eosinophils/100 WBC (Bld) 3 % 0.0 - 11.0 % [facility] Erythrocyte distribution width (RBC) [Ratio] 13.2 % 11.5 - 14.5 % [facility] Hematocrit (Bld) [Volume fraction] 50.4 % 42.0 - 52.0 % [facility] Hemoglobin (Bld) [Mass/Vol] 17.7 g/dL [facility] Lymphocytes/100 WBC (Bld) 22 % 20.0 - 55.0 % [facility] MCH (RBC) [Entitic mass] 33.4 pg 26.0 - 35.0 PG [facility] MCHC (RBC) [Mass/Vol] 35.1 g/dL [facility] MCV (RBC) [Entitic vol] 95.0 fL [facility] Monocytes/100 WBC (Bld) 8 % 0.0 - 10.0 % [facility] Morphology Caesar (Bld) [Interp] NORMAL [facility] Neutrophils/100 WBC (Bld) 66 % 37.0 - 75.0 % [facility] Platelet mean volume (Bld) [Entitic vol] 10.2 fL [facility] Platelet morphology finding Nom (Bld) GIANT PLTS [facility] Comment on above: ADEQUATE Platelets (Bld) [#/Vol] 202 10*3/uL 130 - 400 10*3/uL [facility] RBC (Bld) [#/Vol] 5.31 10*6/uL 4.0 - 6.1 10*6/uL [facility] WBC (Bld) [#/Vol] 10.0 10*3/uL 3.6 - 11.0 10*3/uL [facility] CHEM 7 FASTINGon 06-21-2025 Chloride [Moles/Vol] 106 mmol/L Normal 98-107 [facility] Comment on above: Result Comment: Amber nuñez note: Triglyceride levels of 600mg/dL or higher may positively bias chloride results by approximately 2.1 mmol Performed By: #### L IVR, CHEM7F, LIPA2, ACBC ####[place] [address] CO2 [Moles/Vol] 24 mmol/L Normal 22-30 [facility] Comment on above: Performed By: #### L IVR, CHEM7F, LIPA2, ACBC ####[place] [address] Creatinine [Mass/Vol] 0.95 mg/dL Normal 0.70-1.20 [facility] Comment on above: Performed By: #### L IVR, CHEM7F, LIPA2, ACBC ####[place] [address] GFR Information Average GFR for 40-4 9 years old = 99. Normal [facility] Comment on above: Result Comment: [employer] Analyst gayathri Kidney disease, GFR = <60. Kidney failure, GFR = <15. The GFR estimate is not adjusted for extreme body surface area or acute process, nor has it been validated for women or ethnic groups other than and . MDRD Equation Performed By: #### L IVR, CHEM7F, LIPA2, ACBC ####Testing performed at [facility] [address] [place] [address] GFR/1.73 sq M.predicted MDRD (S/P/Bld) [Vol rate/Area] 92 mL/min/{1.73_m2} Normal [facility] Comment on above: Performed By: #### L IVR, CHEM7F, LIPA2, ACBC ####[place] [address] Glucose [Mass/Vol] 97 mg/dL Normal 70-100 [facility] Comment on above: Result Comment: NORMAL <100 mg/dL PREDIABETES 101-126 mg/dL DIABETES 126 mg/dL or higher Performed By: #### L IVR, CHEM7F, LIPA2, ACBC ####[place] [address] Potassium [Moles/Vol] 4.4 mmol/L Normal 3.5-5.1 [facility] Comment on above: Performed By: #### L IVR, CHEM7F, LIPA2, ACBC ####[place] [address] Sodium [Moles/Vol] 136 mmol/L Low 137-145 [facility] Comment on above: Performed By: #### L IVR, CHEM7F, LIPA2, ACBC ####[place] [address] Urea nitrogen [Mass/Vol] 14 mg/dL Normal 7-20 [facility] Comment on above: Performed By: #### L IVR, CHEM7F, LIPA2, ACBC ####Testing performed at [place] [id number] CHEM 7 (LYTES,BUN,CREA,GLUC) on 06-21-2025 Chloride [Moles/Vol] 106 mmol/L [facility] Comment on above: Please note: Triglyc eride levels of 600mg/dL or higher may positively bias chloride results by approximately 2.1 mmol CO2 [Moles/Vol] 24 mmol/L [facility] Creatinine [Mass/Vol] 0.95 mg/dL 0.70 - 1.20 mg/dL [facility] GFR COMMENT Average GFR for 40-4 9 years old = 99. [facility] Comment on above: Chronic Kidney disea se, GFR = <60. Kidney failure, GFR = <15. The GFR estimate is not adjusted for extreme body surface area or acute process, nor has it been validated for women or ethnic groups other than and . MDRD Equation GFR/1.73 sq M.predicted MDRD (S/P/Bld) [Vol rate/Area] 92 mL/min/{1.73_m2} ml/min/1.73sq. m [facility] Glucose post fast [Mass/Vol] 97 mg/dL [facility] Comment on above: NORMAL <100 mg/dL PREDIABETES 101-126 mg/dL DIABETES 126 mg/dL or higher Potassium [Moles/Vol] 4.4 mmol/L [employer] Sodium [Moles/Vol] 136 mmol/L Low [facility] Urea nitrogen [Mass/Vol] 14 mg/dL 7 - 20 mg/dL [facility] ABDOMEN/PELVIS WITHOUT CO NTRASTon 06-21-2025 CT ABDOMEN/PELVIS WITHOUT CONTRAST EXAMINATION: CT ABDOMEN/PELVIS WITHOUT CONTRAST, 06/21/2025 10:15 AM EDT HISTORY: flank pain COMPARISON: 08/23/2024. TECHNIQUE: CT scan of the abdomen and pelvis was performed without IV contrast. CT dose reduction technique was used, including Automated Exposure Control. 4 mm axial unenhanced images of the abdomen and pelvis were performed. There are coronal and sagittal reformations. They were viewed in soft tissue, bone, and lung windows. FINDINGS: There is a 3 mm nonobstructive mid pole right renal calculus. I do not see any other renal or ureteral calcifications. No renal mass, inflammatory change or hydronephrosis is seen. Both ureters appear normal. Lung bases are clear. No abnormality of the unenhanced liver, spleen, pancreas, or gallbladder is seen. The adrenal glands appear normal. Aorta has minimal wall calcification. The IVC is satisfactory. There is no adenopathy. I see no evidence of obstruction, free air, or air-fluid levels. There are a few colonic diverticula. The appendix is normal. There is no ascites or adenopathy. The bladder and prostate are unremarkable. Spinal stimulator leads are seen. IMPRESSION: 1. There is a small 3 mm nonobstructive mid pole right renal calculus. 2. No other acute appearing intra-abdominal or pelvic finding is identified. 3. Spinal stimulator leads are noted. Normal [facility] CT Abdomen and Pelvis WO dick gale 06-21-2025 IMPRESSION: 1. There is a small 3 mm nonobstructive mid pole right renal calculus. 2. No other acute appearing intra-abdominal or pelvic finding is identified. 3. Spinal stimulator leads are noted. RADIOLOGY EXAMINATION: CT ABDOMEN/PELVIS WITHOUT CONTRAST, 06/21/2025 10:15 AM EDT HISTORY: flank pain COMPARISON: 08/23/2024. TECHNIQUE: CT scan of the abdomen and pelvis was performed without IV contrast. CT dose reduction technique was used, including Automated Exposure Control. 4 mm axial unenhanced images of the abdomen and pelvis were performed. There are coronal and sagittal reformations. They were viewed in soft tissue, bone, and lung windows. FINDINGS: There is a 3 mm nonobstructive mid pole right renal calculus. I do not see any other renal or ureteral calcifications. No renal mass, inflammatory change or hydronephrosis is seen. Both ureters appear normal. Lung bases are clear. No abnormality of the unenhanced liver, spleen, pancreas, or gallbladder is seen. The adrenal glands appear normal. Aorta has minimal wall calcification. The IVC is satisfactory. There is no adenopathy. I see no evidence of obstruction, free air, or air-fluid levels. There are a few colonic diverticula. The appendix is normal. There is no ascites or adenopathy. The bladder and prostate are unremarkable. Spinal stimulator leads are seen. RADIOLOGY Daksha Whittington, DO - 06/21/2025 EXAMINATION: CT ABDOMEN/PELVIS WITHOUT CONTRAST, 06/21/2025 10:15 AM EDT HISTORY: flank pain COMPARISON: 08/23/2024. TECHNIQUE: CT scan of the abdomen and pelvis was performed without IV contrast. CT dose reduction technique was used, including Automated Exposure Control. 4 mm axial unenhanced images of the abdomen and pelvis were performed. There are coronal and sagittal reformations. They were viewed in soft tissue, bone, and lung windows. FINDINGS: There is a 3 mm nonobstructive mid pole right renal calculus. I do not see any other renal or ureteral calcifications. No renal mass, inflammatory change or hydronephrosis is seen. Both ureters appear normal. Lung bases are clear. No abnormality of the unenhanced liver, spleen, pancreas, or gallbladder is seen. The adrenal glands appear normal. Aorta has minimal wall calcification. The IVC is satisfactory. There is no adenopathy. I see no evidence of obstruction, free air, or air-fluid levels. There are a few colonic diverticula. The appendix is normal. There is no ascites or adenopathy. The bladder and prostate are unremarkable. Spinal stimulator leads are seen. IMPRESSION IMPRESSION: 1. There is a small 3 mm nonobstructive mid pole right renal calculus. 2. No other acute appearing intra-abdominal or pelvic finding is identified. 3. Spinal stimulator leads are noted. [facility] Radiology Study observation (narrative) [facility] CT Abdomen and Pelvis WO con trastOrdered By: Daksha Whittington on 06-21-[address] [facility] [address] Lumbar spine WO contrasto n 06-21-2025 IMPRESSION: Postsurgical and degenerative changes without acute osseous abnormality. No CT evidence of severe spinal canal stenosis RADIOLOGY EXAM TYPE: CT SPINE LUMBAR WITHOUT CONTRAST EXAM DATE AND TIME: 06/21/2025 10:15 AM EDT INDICATION: 40 years old Male with pain, prior surgery COMPARISON: Correlated with CT scan 08/23/2024 TECHNIQUE: CT imaging of the lumbar spine was obtained without contrast. Dose reduction techniques were achieved by using automated exposure control and/or adjustment of mA and/or kV according to patient size and/or use of iterative reconstruction technique. FINDINGS: There are 5 nonrib-bearing lumbar vertebrae. Straightening normal lumbar lordosis without listhesis. Vertebral body heights are maintained. Surgical changes from L4-L5 laminectomy. No acute displaced fracture identified. Neurostimulator is noted. Mild to moderate multilevel degenerative disc disease and facet arthropathy, most significant at the L5-S1 level. No CT evidence of focal large central disc herniation or severe spinal canal stenosis. The visualized bony pelvis appears congruent with mild joint space narrowing of the sacroiliac joints. For abdominal pelvic visceral findings, see separate CT abdomen pelvis report. RADIOLOGY Ken Rivera M D - 06/21/2025 EXAM TYPE: CT SPINE LUMBAR WITHOUT CONTRAST EXAM DATE AND TIME: 06/21/2025 10:15 AM EDT INDICATION: 40 years old Male with pain, prior surgery COMPARISON: Correlated with CT scan 08/23/2024 TECHNIQUE: CT imaging of the lumbar spine was obtained without contrast. Dose reduction techniques were achieved by using automated exposure control and/or adjustment of mA and/or kV according to patient size and/or use of iterative reconstruction technique. FINDINGS: There are 5 nonrib-bearing lumbar vertebrae. Straightening normal lumbar lordosis without listhesis. Vertebral body heights are maintained. Surgical changes from L4-L5 laminectomy. No acute displaced fracture identified. Neurostimulator is noted. Mild to moderate multilevel degenerative disc disease and facet arthropathy, most significant at the L5-S1 level. No CT evidence of focal large central disc herniation or severe spinal canal stenosis. The visualized bony pelvis appears congruent with mild joint space narrowing of the sacroiliac joints. For abdominal pelvic visceral findings, see separate CT abdomen pelvis report. IMPRESSION IMPRESSION: Postsurgical and degenerative changes without acute osseous abnormality. No CT evidence of severe spinal canal stenosis [facility] Radiology Study observation (narrative) [facility] CT Lumbar spine WO contrastO rdered By: Ken Rivera on 06-21-2025 [facility] Work Phone: CT SPINE LUMBAR WITHOUT CONT [facility] 06-21-2025 CT SPINE LUMBAR WITHOUT CONTRAST EXAM TYPE: CT SPINE LUMBAR WITHOUT CONTRAST EXAM DATE AND TIME: 06/21/2025 10:15 AM EDT INDICATION: 40 years old Male with pain, prior surgery COMPARISON: Correlated with CT scan 08/23/2024 TECHNIQUE: CT imaging of the lumbar spine was obtained without contrast. Dose reduction techniques were achieved by using automated exposure control and/or adjustment of mA and/or kV according to patient size and/or use of iterative reconstruction technique. FINDINGS: There are 5 nonrib-bearing lumbar vertebrae. Straightening normal lumbar lordosis without listhesis. Vertebral body heights are maintained. Surgical changes from L4-L5 laminectomy. No acute displaced fracture identified. Neurostimulator is noted. Mild to moderate multilevel degenerative disc disease and facet arthropathy, most significant at the L5-S1 level. No CT evidence of focal large central disc herniation or severe spinal canal stenosis. The visualized bony pelvis appears congruent with mild joint space narrowing of the sacroiliac joints. For abdominal pelvic visceral findings, see separate CT abdomen pelvis report. IMPRESSION: Postsurgical and degenerative changes without acute osseous abnormality. No CT evidence of severe spinal canal stenosis Normal [facility] HEPATIC FUNCTION PANELon Albumin [Mass/Vol] 4.7 g/dL [facility] ALP [Catalytic activity/Vol] 83 U/L 38 - 126 U/L [facility] ALT [Catalytic activity/Vol] 56 U/L High NINF - 50 U/L [facility] AST [Catalytic activity/Vol] 49 U/L 17 - 59 U/L [facility] Bilirubin [Mass/Vol] 0.6 mg/dL 0.2 - 1 .3 mg/dL [facility] Bilirubin.direct [Mass/Vol] 0.3 mg/dL [facility] Protein [Mass/Vol] 8.3 g/dL High 6.3 - 8.2 g/dL [facility] LACTATE, BLOODon 06-21-2025 Lactate [Moles/Vol] 1.4 mmol/L 0.7 - 2. 0 mmol/L [facility] LACTATE,BLOODon 06-21-2025 Lactate [Moles/Vol] 1.4 mmol/L Normal 0.7-2.0 [facility] Comment on above: Performed By: #### L ACTAC #### Testing performed at [address] [address] LIPASEon 06-21-2025 Lipase [Catalytic activity/Vol] 697 U/L Critically high 23 - 300 U/L [facility] Comment on above: Result called to lena d back by: Miriam COOPER RN 06/21/2025 @ 11:14 by [facility] LIPASE,SERUMon 06-21-2025 LIPASE,SERUM 697 U/L Critically high 23-300 [facility] Comment on above: Result Comment: Resu lt called to read back by: Miriam COOPER RN 06/21/2025 @ 11:14 by Ramo Performed By: #### L IVR, CHEM7F, LIPA2, ACBC ####Testing performed at [address] [place] [address] LIVER PANELon 06-21-2025 Albumin [Mass/Vol] 4.7 g/dL Normal 3.5-5.0 [facility] Comment on above: Performed By: #### L IVR, CHEM7F, LIPA2, ACBC ####Testing performed at [address] [address] ALP [Catalytic activity/Vol] 83 U/L Normal 38-126 [facility] Comment on above: Performed By: #### L IVR, CHEM7F, LIPA2, ACBC ####Testing performed at [address] [address] ALT [Catalytic activity/Vol] 56 U/L High <50 [facility] Comment on above: Performed By: #### L IVR, CHEM7F, LIPA2, ACBC ####Testing performed at [address] [address] AST [Catalytic activity/Vol] 49 U/L Normal 17-59 [facility] Comment on above: Performed By: #### L IVR, CHEM7F, LIPA2, ACBC ####Testing performed at [address] [address] Bilirubin [Mass/Vol] 0.6 mg/dL Normal 0.2-1.3 [facility] Comment on above: Performed By: #### L IVR, CHEM7F, LIPA2, ACBC ####Testing performed at [address] [address] Bilirubin.indirect [Mass/Vol] 0.3 mg/dL Normal 0.0-0.4 [facility] Comment on above: Performed By: #### L IVR, CHEM7F, LIPA2, ACBC ####Testing performed at [address] [address] Protein [Mass/Vol] 8.3 g/dL High 6.3-8.2 [facility] Comment on above: Performed By: #### L IVR, CHEM7F, LIPA2, ACBC ####Testing performed at [address] [address] No Panel Informationon 06-21 Interpretation and review of laboratory results Abnormal [facility] RAPID TOX SCREEN,URINEon AMPHETAMINE Negative Normal NEGATIVE [facility] Comment on above: Result Comment: <500 ng/ml CUTOFF Performed By: #### U MAC, ARTOX ####Testing performed at [address] [place] [address] BARBITURATES Negative Normal NEGATIVE [facility] Comment on above: Result Comment: <200 ng/ml CUTOFF Performed By: #### U MAC, ARTOX ####Testing performed at [address] [place] [address] BENZODIAZEPINES Negative Normal NEGATIVE [facility] Comment on above: Result Comment: <200 ng/ml CUTOFF Performed By: #### U MAC, ARTOX ####Testing performed at [address] [place] [address] BUPRENORPHINE Negative Normal NEGATIVE [facility] Comment on above: Result Comment: <10 ng/ml CUTOFF Performed By: #### U MAC, ARTOX ####Testing performed at [address] [address] CANNABINOIDS Negative Normal NEGATIVE [facility] Comment on above: Result Comment: <50 ng/ml CUTOFF Performed By: #### U MAC, ARTOX ####Testing performed at [place] [id number] COCAINE Negative Normal NEGATIVE [facility] Comment on above: Result Comment: <150 ng/ml CUTOFF Performed By: #### U MAC, ARTOX ####[place] [address] FENTANYL Negative Normal NEGATIVE [facility] Comment on above: Result Comment: 1.0 ng/mL CUTOFF *Unconfirmed Screening Result* Unconfirmed screening results are to be used only for medical treatment purposes. This test has not been approved by the FDA. Performed By: #### U MAC, ARTOX ####Testing performed at [address] [address] METHADONE METABOLITE Negative Normal NEGATIVE [facility] Comment on above: Result Comment: <100 ng/ml CUTOFF Performed By: #### U MAC, ARTOX ####Testing performed at [address] [address] METHAMPHETAMINE Negative Normal NEGATIVE [facility] Comment on above: Result Comment: <500 ng/ml CUTOFF Performed By: #### U MAC, ARTOX ####[place] [address] OPIATES Negative Normal NEGATIVE [facility] Comment on above: Result Comment: <300 ng/ml CUTOFF Performed By: #### U MAC, ARTOX ####[place] [address] OXYCODONE Positive Abnormal NEGATIVE [facility] Comment on above: Result Comment: <100 ng/ml CUTOFF *Unconfirmed Screening Result* Unconfirmed screening results are to be used only for medical treatment purposes. Performed By: #### U MAC, ARTOX ####[place] [address] TRICYCLIC ANTIDEPRESSANTS Positive Abnormal NEGATIVE [facility] Comment on above: Result Comment: <100 0 ng/ml CUTOFF *Unconfirmed Screening Result* Unconfirmed screening results are to be used only for medical treatment purposes. Performed By: #### U MAC, ARTOX ####[place] [address] TOXICOLOGY DRUG SCREEN, URIN Gabriel 06-21-2025 Amphetamines Screen Ql (U) Negative NEGATIVE NG/ML [facility] Comment on above: <500 ng/ml CUTOFF Barbiturates Screen Ql (U) Negative NEGATIVE NG/ML [facility] Comment on above: <200 ng/ml CUTOFF Benzodiazepines Negative NEGATIVE NG/ML [facility] Comment on above: <200 ng/ml CUTOFF Buprenorphine Negative NEGATIVE NG/ML [facility] Comment on above: <10 ng/ml CUTOFF Cannabinoids Screen Ql (U) Negative NEGATIVE NG/ML [facility] Comment on above: <50 ng/ml CUTOFF Cocaine Negative NEGATIVE NG/ML [facility] Comment on above: <150 ng/ml CUTOFF Fentanyl Negative NEGATIVE NG/ML [facility] Comment on above: 1.0 ng/mL CUTOFF *Unconfirmed Screening Result* Unconfirmed screening results are to be used only for medical treatment purposes. This test has not been approved by the FDA. Interpretation and review of laboratory results Abnormal [facility] Methadone+Metabolite Screen Ql (U) Negative NEGATIVE NG[facility]ML [facility] Comment on above: <100 ng/ml CUTOFF Methamphetamine Ql (U) Negative NEGATIVE NG/ML [facility] Comment on above: <500 ng/ml CUTOFF Opiates Ql (U) Negative NEGATIVE NG/ML [facility] Comment on above: <300 ng/ml CUTOFF Oxycodone Confirmation Positive Abnormal NEGATIVE NG/ML [facility] Comment on above: <100 ng/ml CUTOFF *Unconfirmed Screening Result* Unconfirmed screening results are to be used only for medical treatment purposes. Tricyclic Antidepressants, Urine Positive Abnormal NEGATIVE NG/ML [facility] Comment on above: <1000 ng/ml CUTOFF *Unconfirmed Screening Result* Unconfirmed screening results are to be used only for medical treatment purposes. [facility] URINALYSIS, MACROon 06-21-20 25 Bilirubin Ql (U) Negative NEGATIVE [facility] Clarity (U) CLEAR CLEAR [facility] Color (U) YELLOW YELLOW [facility] Glucose Test strip (U) [Mass/Vol] Negative NEGATIVE mg/dl [facility] Hemoglobin Ql (U) Negative NEGATIVE [facility] Ketones (U) [Mass/Vol] Negative NEGATIVE mg/dl [facility] Leukocyte esterase Test strip Ql (U) Negative NEGATIVE [facility] Nitrite Ql (U) Negative NEGATIVE [facility] pH (U) 6.5 [pH] 5.0 - 7.0 [facility] Protein Ql (U) Negative NEGATIVE mg/dl [facility] Specific gravity (U) [Rel density] 1.020 1.010 - 1.025 [facility] Urobilinogen (U) [Mass/Vol] 0.2 mg/dL [facility] Bilirubin Ql (U) Negative NEGATIVE [facility] Clarity (U) CLEAR CLEAR [facility] Color (U) YELLOW YELLOW [facility] Glucose Test strip (U) [Mass/Vol] Negative NEGATIVE mg/dl [facility] Hemoglobin Ql (U) Negative NEGATIVE [facility] Ketones (U) [Mass/Vol] Negative NEGATIVE mg/dl [facility] Leukocyte esterase Test strip Ql (U) Negative NEGATIVE [facility] Nitrite Ql (U) Negative NEGATIVE [facility] pH (U) 6.0 [pH] 5.0 - 7.0 [facility] Protein Ql (U) Negative NEGATIVE mg/dl [facility] Specific gravity (U) [Rel density] 1.020 1.010 - 1.025 [facility] Urobilinogen (U) [Mass/Vol] 0.2 mg/dL [facility] URINE MACROSCOPICon 06-21-20 25 Bilirubin Ql (U) Negative Normal NEGATIVE [facility] Comment on above: Performed By: #### U MAC, ARTOX ####Testing performed at [address] [address] Clarity (U) CLEAR Normal CLEAR [facility] Comment on above: Performed By: #### U MAC, ARTOX ####Testing performed at [address] [address] Color (U) YELLOW Normal YELLOW [facility] Comment on above: Performed By: #### U MAC, ARTOX ####Testing performed at [address] [address] Glucose Ql (U) Negative Normal NEGATIVE [facility] Comment on above: Performed By: #### U MAC, ARTOX ####Testing performed at [address] [address] pH (U) 6.5 [pH] Normal 5.0-7.0 [facility] Comment on above: Performed By: #### U MAC, ARTOX ####Testing performed at [address] [address] URINE HEMOGLOBIN Negative Normal NEGATIVE [facility] Comment on above: Performed By: #### U MAC, ARTOX ####Testing performed at [address] [address] URINE KETONE Negative Normal NEGATIVE [facility] Comment on above: Performed By: #### U MAC, ARTOX ####Testing performed at [address] [address] URINE LEUKOTEST Negative Normal NEGATIVE [facility] Comment on above: Performed By: #### U MAC, ARTOX ####Testing performed at [address] [address] URINE NITRATES Negative Normal NEGATIVE [facility] Comment on above: Performed By: #### U MAC, ARTOX ####Testing performed at [address] [address] URINE SPEC GRAVITY 1.020 Normal 1.010-1.025 [facility] Comment on above: Performed By: #### U MAC, ARTOX ####Testing performed at [address] [place] [address] URINE TOTAL PROTEIN Negative Normal NEGATIVE [facility] Comment on above: Performed By: #### U MAC, ARTOX ####Testing performed at [address] [place] [address] Urobilinogen Qn (U) 0.2 {Lu'U}/dL Normal 0.2-1.0 [facility] Comment on above: Performed By: #### U MAC, ARTOX ####Testing performed at [address] [place] [address] Bilirubin Ql (U) Negative Normal NEGATIVE [facility] Comment on above: Performed By: #### U MAC #### Testing performed at [address] [place] [address] Clarity (U) CLEAR Normal CLEAR [facility] Comment on above: Performed By: #### U MAC #### Testing performed at [address] [place] [address] Color (U) YELLOW Normal YELLOW [facility] Comment on above: Performed By: #### U MAC #### Testing performed at [address] [place] [address] Glucose Ql (U) Negative Normal NEGATIVE [facility] Comment on above: Performed By: #### U MAC #### Testing performed at [address] [place] [address] pH (U) 6.0 [pH] Normal 5.0-7.0 [facility] Comment on above: Performed By: #### U MAC #### Testing performed at [address] [place] [address] URINE HEMOGLOBIN Negative Normal NEGATIVE [facility] Comment on above: Performed By: #### U MAC #### Testing performed at [address] [place] [address] URINE KETONE Negative Normal NEGATIVE [facility] Comment on above: Performed By: #### U MAC #### Testing performed at [address] [place] [address] URINE LEUKOTEST Negative Normal NEGATIVE [facility] Comment on above: Performed By: #### U MAC #### Testing performed at [address] [address] URINE NITRATES Negative Normal NEGATIVE [facility] Comment on above: Performed By: #### U MAC #### Testing performed at [address] [address] URINE SPEC GRAVITY 1.020 Normal 1.010-1.025 [facility] Comment on above: Performed By: #### U MAC #### Testing performed at [address] [address] URINE TOTAL PROTEIN Negative Normal NEGATIVE [facility] Comment on above: Performed By: #### U MAC #### Testing performed at [address] [address] Urobilinogen Qn (U) 0.2 {Lu'U}/dL Normal 0.2-1.0 [facility] Comment on above: Performed By: #### U MAC #### Testing performed at [address] [address] Anion gap in Serum or Plasma Ordered By: Genesis Collazo on 05-31-2025 Anion gap [Moles/Vol] 10 mmol/L 5-[address] [facility] BUN/creatinine ratioOrdered By: Genesis Collazo on 05-31-2025 Urea nitrogen/Creatinine [Mass ratio] 10.9 mg/mg 10-20 [facility] Bilirubin, totalOrdered By: Genesis Collazo on 05-31-2025 Bilirubin [Mass/Vol] 0.16 mg/dL 0.00-1.30 [facility] Carbon dioxide, total [Moles /volume] in Central venous bloodOrdered By: Genesis Collazo on 05-31-2025 CO2 [Moles/Vol] 20.6 mmol/L Low 21.0-32.0 [facility] Chloride assayOrdered By: Katie Collazo on 05-31-2025 Chloride [Moles/Vol] 108 mmol/L 98-108 [facility] Comprehensive Metabolic Prof ilon 05-31-2025 Albumin [Mass/Vol] 4.2 g/dL Normal 3.5-5.0 [facility] Comment on above: Performed By: #### L 501.9593, L500.4050, L501.9060 #### [facility] [address] [place], [address] Albumin/Globulin [Mass ratio] 1.6 {ratio} Normal 0.9-2.4 [facility] Comment on above: Performed By: #### L 501.9520, L500.4050, L501.9060 #### [facility] [address] [place], [address] ALK PHOS 125 U/L Normal 40-129 [facility] Comment on above: Performed By: #### L 501.9520, L500.4050, L501.9060 #### [facility] [address] [place], [address] ALT [Catalytic activity/Vol] 49 U/L High <=46 [facility] Comment on above: Performed By: #### L 501.9520, L500.4050, L501.9060 #### [facility] [address] [place], [address] AST [Catalytic activity/Vol] 38 U/L Normal <=37 [facility] Comment on above: Result Comment: Hemo lysis present, Results??could be affected. ?? Performed By: #### L 501.9520, L500.4050, L501.9060 #### [facility] [address] [place], [address] Bilirubin [Mass/Vol] 0.16 mg/dL Normal 0.00-1.30 [facility] Comment on above: Performed By: #### L 501.9520, L500.4050, L501.9060 #### [facility] [address] [place], [address] BUN/CRE 10.9 RATIO Normal 10-20 [facility] Comment on above: Performed By: #### L 501.9520, L500.4050, L501.9060 #### [facility] [address] [place], [address] Calcium [Mass/Vol] 9.5 mg/dL Normal 7.6-11.0 [facility] Comment on above: Performed By: #### L 501.9520, L500.4050, L501.9060 #### [facility] [address] [place], [address] Chloride [Moles/Vol] 108 mmol/L Normal 98-108 [facility] Comment on above: Performed By: #### L 501.9520, L500.4050, L501.9060 #### [facility] [address] [place], [address] CO2 [Moles/Vol] 20.6 mmol/L Low 21.0-32.0 [facility] Comment on above: Performed By: #### L 501.9520, L500.4050, L501.9060 #### [facility] [address] [place], [address] Creatinine [Mass/Vol] 0.99 mg/dL Normal 0.70-1.[address] [facility] Comment on above: Performed By: #### L 501.9520, L500.4050, L501.9060 #### [facility] [address] [place], [address] GAP 10 Normal 5-15 [facility] Comment on above: Performed By: #### L 501.9520, L500.4050, L501.9060 #### [facility] [address] [place], [address] GFR/1.73 sq M.predicted among non-blacks MDRD (S/P/Bld) [Vol rate/Area] 97 mL/min/{1.73_m2} Normal >60 [facility] Comment on above: Result Comment: mL/m in/1.73m2 CKD-EPI Creatinine Equation (2020) Performed By: #### L 501.9520, L500.4050, L501.9060 #### [facility] [address] [place], [address] Globulin (S) [Mass/Vol] 2.7 g/dL Normal 2.2-4.2 [facility] Comment on above: Performed By: #### L 501.9520, L500.4050, L501.9060 #### [facility] [address] [place], [address] Glucose [Mass/Vol] 116 mg/dL High 70-99 [facility] Comment on above: Performed By: #### L 501.9520, L500.4050, L501.9060 #### [facility] [address] [place], [address] Potassium [Moles/Vol] 4.3 mmol/L Normal 3.3-5.[address] [facility] Comment on above: Result Comment: Hemo lysis present, Results??could be affected. ?? Performed By: #### L 501.9520, L500.4050, L501.9060 #### [facility] [address] [place], [address] Sodium [Moles/Vol] 139 mmol/L Normal 133-145 [facility] Comment on above: Performed By: #### L 501.9520, L500.4050, L501.9060 #### [facility] [address] [place], [address] T PROT 6.8 g/dL Normal 5.9-8.4 [facility] Comment on above: Performed By: #### L 501.9520, L500.4050, L501.9060 #### [facility] [address] [place], [address] Urea nitrogen [Mass/Vol] 11 mg/dL Normal 4-19 [facility] Comment on above: Performed By: #### L 501.9520, L500.4050, L501.9060 #### [facility] [address] [place], [place], [id number] Glomerular filtration rate ( GFR) estimation/1.73 sq m using serum, plasma, or whole bOrdered By: Genesis Collazo on 05-31-2025 GFR/1.73 sq M.predicted among non-blacks MDRD (S/P/Bld) [Vol rate/Area] 97 mL/min/{1.73_m2} >60 [facility] Comment on above: mL/min/1.73m2 CKD-EP I Creatinine Equation (2020) Laboratory - Chemistry and C hemistry - challengeOrdered By: Genesis Collazo on 05-31-2025 AST [Catalytic activity/Vol] 38 U/L <38 [facility] Comment on above: Hemolysis present, R esults could be affected. Lithiumon 05-31-2025 LI 0.33 mmol/L Low 0.60-1.20 [facility] Comment on above: Order Comment: 2099 Performed By: #### L 501.9520, L500.4050, L501.9060 #### [facility] [address] [place], [place], [id number] Potassium measurement (mass/ volume)Ordered By: Genesis Collazo on 05-31-2025 Potassium (Unsp spec) [Mass/Vol] 4.3 mmol/L 3.3-5.1 [facility] Comment on above: Hemolysis present, R esults could be affected. Serum creatinine measurement (mass/volume)Ordered By: Genesis Collazo on 05-31-2025 Creatinine [Mass/Vol] 0.99 mg/dL 0.70-1.[address] [facility] Serum globulin measurementOr dered By: Genesis Collazo on 05-31-2025 Globulin (S) [Mass/Vol] 2.7 g/dL 2.2-4.2 [facility] Serum glucose measurement (m ass/volume)Ordered By: Genesis Collazo on 05-31-2025 Glucose [Mass/Vol] 116 mg/dL High 70-99 [facility] Serum or plasma alanine lima otransferase (ALT) measurementOrdered By: Genesis Collazo on 05-31-2025 ALT [Catalytic activity/Vol] 49 U/L High <47 [facility] Serum or plasma albumin esme urement (mass/volume)Ordered By: Genesis Collazo on 05-31-2025 Albumin [Mass/Vol] 4.2 g/dL 3.5-5.0 [facility] Serum or plasma albumin/glob ulin mass ratioOrdered By: Genesis Collazo on 05-31-2025 Albumin/Globulin [Mass ratio] 1.6 {ratio} 0.9-2.4 [facility] Serum or plasma alkaline bere sphatase measurementOrdered By: Genesis Collazo on 05-31-2025 ALP [Catalytic activity/Vol] 125 U/L 40-129 [facility] Serum or plasma calcium esme urement (mass/volume)Ordered By: Genesis Collazo on 05-31-2025 Calcium [Mass/Vol] 9.5 mg/dL 7.6-11.0 [facility] Serum or plasma urea nitroge n measurement (mass/volume)Ordered By: Genesis Collzao on 05-31-2025 Urea nitrogen [Mass/Vol] 11 mg/dL 4-19 [facility] Sodium levelOrdered By: Genesis Collazo on 05-31-2025 Sodium [Moles/Vol] 139 mmol/L 133-145 [facility] TSH DL <= 0.005 mIU/L QnOrde red By: Genesis Collazo on 05-31-2025 TSH Qn 3.550 uIU/mL 0.300-4.200 [facility] Thyroid Stim Hormone (TSH)on 05-31-2025 TSH 3.550 uIU/mL Normal 0.300-4.200 [facility] Comment on above: Performed By: #### L 501.9538, L500.4050, L501.9060 #### [facility] [address] [place], [place], [id number] Total proteinOrdered By: Lisette Collazo on 05-31-2025 Protein [Mass/Vol] 6.8 g/dL 5.9-8.4 [facility] Cerv Spine 2 or 3 Viewson Cerv Spine 2 or 3 Views [facility] [address] [place] [address] Cerv Spine 2 or 3 Views MR#: [id number] Acct: [id number] Name: AJIT ZHU Rep #: [id number] : 1985 M 39 From: Kacie Milan MD PCP: Dr. Mick Leung MD Status: DEP AMB Study: Cerv Spine 2 or 3 Views Date of Exam: 05/13/25 Exam# [id number] Ordering Dr: Paige Shine PROCEDURE: CERV SPINE 2 OR 3 VIEWS 05/13/2025 REASON FOR EXAM: NECK PAIN TECHNIQUE: CERV SPINE 2 OR 3 VIEWS COMPARISON: None. FINDINGS: No evidence of acute fracture or dislocation. Mild degenerative changes of the visualized spine. No instability on flexion or extension views. RAD/Cerv Spine 2 or 3 Views IMPRESSION: Spondylosis. No instability. Reading Location: [id number] CC: MORGAN Ordonez; Dr. Mick Leung MD Meter Tester Primary: Signed Normal [facility] Orthopedic Visit Reporton Orthopedic Visit Report [facility] [address] [place] [id number] OFFICE VISIT Date of Service: 05/13/25 MR#: [id number] Acct: [id number] Name: AJIT ZHU Rep #: [id number] : 1985 Provider: MORGAN Ordonez Age/Sex: 39/M Location[place] [facility] [place] Status: Signed Intake Vital Signs 04/21/25 10:52 05/11/25 11:53 05/13/25 11:32 Height 5 ft 8 in 5 ft 8 in 5 ft 8 in Weight: 220 lb 2 oz BMI 33.5 Intake Visit Reasons: CERVICAL SPINE Allergies No Known Allergies Allergy (Verified 05/13/25 11:32) Medications ???Medication ???Instructions ???Recorded ???Confirmed ???Type cyclobenzaprine 10 mg tablet 10 mg PO TID PRN muscle spasm #30 05/13/25 05/13/25 Rx tabs gabapentin 600 mg tablet 600 mg PO BID #60 tabs 05/13/25 Rx lithium carbonate 300 mg capsule 300 mg PO TID 05/13/25 05/13/25 Hi story [facility] Medical History Difficulty controlling anger Bipolar 1 disorder Sleep apnea Depression Surgical History History of shoulder surgery History of repair of anterior cruciate ligament of right knee History of tonsillectomy History of surgery on left wrist Family History Brother Colon cancer, Onset Age: 29 Father Cancer liver Kidney disease Social History Smoking Status: Current every day smoker tobacco type: cigarettes HPI CERVICAL SPINE Details: This documentation accurately reflects the service provided and the decisions made by me, MORGAN Ordonez 05/13/25 1129. Part of today???s visit was documented by Miri YOUSIF, acting as scribe. AJIT ZHU is a 39 year old M here today for neck pain that he has been having for 2 weeks now. Says that over the last 2 weeks the symptoms have been worsening. He denies any known injury or aggravating events. He states that his pain is on the left side of his neck and radiated down into his shoulder and under his armpit. Says that the left sided neck pain goes to the left shoulder and then down the back of his left arm all the way to his fingers. He does have numbness and tingling in his left shoulder that extends down his arm into his fingers. He denies any right sided involvement. He has not done any PT or seen pain management. He was given prednisone and gabap[facility] which did help with his pain but he ran out of the medications. He was also given cyclobenzaprine which was helpful but he has ran out of. He did have xrays at [facility] and as well as [facility]. He denies having an MRI of the neck. He does have weakness in the left arm. He has been having balance issues as well. Says that this balance issue started with the onset of his neck pain. Says that he has noticed some dexterity changes and has dropped things out of his left hand. The patient is right-hand dominant. He takes ibuprofen and Tylenol as needed however this has been no benefit to him. Ortho Exam General General: Yes no acute distress Neurologic: Yes alert and Yes oriented x3 Spine SPINE TESTING CERVICAL THORACIC LUMBAR Musculoskeletal Strength 0=absent - 5=normal Details: Neurological exam of the upper extremities shows 5X5 power. Normal sensation across all dermatomes. No hyperreflexia. Sarah's negative. There is both midline and left paraspinal tenderness. Coding Level of Care Code Off vis,new,level 4 Diagnoses Cervical myelopathy with cervical radiculopathy G95.9; M54.12 Degenerative disc disease, cervical M50.30 Spondylolisthesis of cervical region M43.12 Assessment and Plan Assessment and Plan (1) Cervical myelopathy with cervical radiculopathy: Status: Acute (2) Degenerative disc disease, cervical: Status: Acute (3) Spondylolisthesis of cervical region: Status: Acute Orders: Orders Cerv Spine 2 or 3 Views Today M54.2 - Cervicalgia Spine Cervical (Routine) Today G95.9 - Disease of spinal cord, unspecified, M54.12 - Radiculopathy, cervical region Medications: New gabapentin 600 mg PO BID 60 tabs 0RF cyclobenzaprine 10 mg PO TID PRN 30 tabs 0RF muscle spasm Plan Obtained and reviewed cervical x-rays today in the clinic. Reviewed prior AP and lateral x-rays. Independent interpretation of the x-rays was performed. X-rays show a disc height loss at C5-6 with a mild retrolisthesis of C5 on C6, there is straightening of the normal cervical lordosis. There is some mild instability at the C5-6 level with dynamic views. Reviewed CT cervical from April 2025 shows a degenerative change at C5-6. No cervical MRI. Reviewed the imaging findings in detail. Recommend an MRI at this time to assess for cervical myelopathy due (more content not included)... Normal [facility] CT Cervical spine WO [place] 04-30-2025 IMPRESSION: 1. There is no evidence of acute fracture or subluxation of the cervical spine. 2. There are moderate multilevel degenerative changes of the cervical spine, most pronounced at C5-C6. 3. The patient is status post ORIF of the left clavicle. RADIOLOGY EXAMINATION: CT SPIN E CERVICAL WITHOUT CONTRAST HISTORY: Left cervical radiculopathy COMPARISON: CT cervical spine without IV contrast dated June 07, 2018. Correlation is made with MRI cervical spine without IV contrast dated November 28, 2020. TECHNIQUE: CT Cervical spine without IV contrast. Coronal and sagittal reformations were performed. Dose reduction techniques were achieved by using automated exposure control and/or adjustment of mA and/or kV according to patient size and/or use of iterative reconstruction technique. FINDINGS: There is no evidence of acute cervical spinal fracture. The cervical spine vertebral body heights are maintained. There are moderate multilevel degenerative changes of the cervical spine, most pronounced at C5-C6. There is no evidence of acute subluxation of the cervical spine. The cervical spinal alignment is anatomic. The patient is status post ORIF of the left clavicle. There is no evidence of any epidural hematoma. The visualized aspects of the lung apices are clear. RADIOLOGY Akil Plascencia MD - 04/30/2025 EXAMINATION: CT SPINE CERVICAL WITHOUT CONTRAST HISTORY: Left cervical radiculopathy COMPARISON: CT cervical spine without IV contrast dated June 07, 2018. Correlation is made with MRI cervical spine without IV contrast dated November 28, 2020. TECHNIQUE: CT Cervical spine without IV contrast. Coronal and sagittal reformations were performed. Dose reduction techniques were achieved by using automated exposure control and/or adjustment of mA and/or kV according to patient size and/or use of iterative reconstruction technique. FINDINGS: There is no evidence of acute cervical spinal fracture. The cervical spine vertebral body heights are maintained. There are moderate multilevel degenerative changes of the cervical spine, most pronounced at C5-C6. There is no evidence of acute subluxation of the cervical spine. The cervical spinal alignment is anatomic. The patient is status post ORIF of the left clavicle. There is no evidence of any epidural hematoma. The visualized aspects of the lung apices are clear. IMPRESSION IMPRESSION: 1. There is no evidence of acute fracture or subluxation of the cervical spine. 2. There are moderate multilevel degenerative changes of the cervical spine, most pronounced at C5-C6. 3. The patient is status post ORIF of the left clavicle. [facility] Radiology Study observation (narrative) [facility] CT Cervical spine WO contras tOrdered By: Akil Reyes on 04-30-[address] [facility] [address] SPINE CERVICAL WITHOUT CO NTRASTon 04-30-2025 CT SPINE CERVICAL WITHOUT CONTRAST EXAMINATION: CT SPINE CERVICAL WITHOUT CONTRAST HISTORY: Left cervical radiculopathy COMPARISON: CT cervical spine without IV contrast dated June 07, 2018. Correlation is made with MRI cervical spine without IV contrast dated November 28, 2020. TECHNIQUE: CT Cervical spine without IV contrast. Coronal and sagittal reformations were performed. Dose reduction techniques were achieved by using automated exposure control and/or adjustment of mA and/or kV according to patient size and/or use of iterative reconstruction technique. FINDINGS: There is no evidence of acute cervical spinal fracture. The cervical spine vertebral body heights are maintained. There are moderate multilevel degenerative changes of the cervical spine, most pronounced at C5-C6. There is no evidence of acute subluxation of the cervical spine. The cervical spinal alignment is anatomic. The patient is status post ORIF of the left clavicle. There is no evidence of any epidural hematoma. The visualized aspects of the lung apices are clear. IMPRESSION: 1. There is no evidence of acute fracture or subluxation of the cervical spine. 2. There are moderate multilevel degenerative changes of the cervical spine, most pronounced at C5-C6. 3. The patient is status post ORIF of the left clavicle. Normal [facility] TROPONIN I, HIGH SENSITIVITY on 04-30-2025 TROPONIN I, HIGH SENSITIVITY 3 pg/mL 0 - 20 pg/mL [facility] Comment on above: Indeterminant: >12 to 100 pg/mL female >20 to 100 pg/mL male Indicative of myocardial injury. Serial sampling is recommended, a change of greater than or equal to 20 pg/mL is indicative of acute coronary syndrome. [facility] TROPONIN I, HIGH SENSITIVITY 3 pg/mL Normal 0-20 [facility] Comment on above: Result Comment: Indeterminant: >12 to 100 pg/mL female >20 to 100 pg/mL male Indicative of myocardial injury. Serial sampling is recommended, a change of greater than or equal to 20 pg/mL is indicative of acute coronary syndrome. Performed By: #### T ROHS ####Testing performed at [facility] [place] [address] Cerv Spine 2 or 3 Viewson Cerv Spine 2 or 3 Views [facility] [address] [place] [address] Cerv Spine 2 or 3 Views MR#: [id number] Acct: [id number] Name: AJIT ZHU Rep #: [id number] : 1985 M 39 From: Akil Brambila MD PCP: Care Physician,No Primary Status: PRE ER Study: Cerv Spine 2 or 3 Views Date of Exam: 04/21/25 Exam# [id number] Ordering Dr: Binh Mckee DO PROCEDURE: CERV SPINE 2 OR 3 VIEWS 04/21/2025 REASON FOR EXAM: NECK PAIN TECHNIQUE: CERV SPINE 3 VIEWS COMPARISON: None FINDINGS: There is loss of the lordosis. There is no significant spondylolisthesis. There is degenerative disc disease at C5-6. Facet articulations are aligned. Prevertebral soft tissues are within normal limits. Hardware is partly visible in the left clavicle. The odontoid appears intact. Dental hardware is noted. RAD/Cerv Spine 2 or 3 Views IMPRESSION: There is loss of the lordosis. There is degenerative disc disease at C5-6. Reading Location: [facility] CC: Dr. Binh Mckee DO; No Primary Care Physician Meter Tester Primary: Signed Normal [facility] Emergency Department Summary on 04-21-2025 Emergency Department Summary [facility] Medical Records Department [address] [place] [address] Emergency Department Summary 04/21/25 MR#: [id number] Acct: [id number] Name: AJIT ZHU Rep #: [id number] : 1985 39 From: Binh Mckee DO PCP: Dr. Mick Leung MD Status:DEP ER Location: ED HPI History of Present Illness Chief Complaint: Back Detail of Chief Complaint: Back and neck pain Informant: patient Narrative Narrative: Patient presents to the emergency department with atraumatic back and neck pain that started 2 weeks ago. 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 At times he has pain into the left shoulder and he has had some numbness and tingling to the bicep area. He denies weakness of the extremities. He has history of chronic back pain and had a spinal stimulator placed years ago and really has been doing quite well since that time. He does not see pain management. [facility] Medical History Difficulty controlling anger Bipolar 1 disorder Sleep apnea Depression Home Medications ???Medication ???Instructions ???Recorded ???Last Taken ???Type bupropion HCl 150 mg 24 hr tablet, 150 mg PO BID 01/14/19 Unknown H istory extended release clonidine HCl 0.1 mg tablet 0.1 mg PO BID 01/14/19 Unknown His tory gabapentin 100 mg capsule 100 mg PO TID 03/27/21 Unknown His tory lamotrigine 150 mg tablet 150 mg PO DAILY 03/27/21 Unknown H istory naproxen 500 mg tablet (Naprosyn) 500 mg PO BID #20 tabs 03/27/21 U nknown Rx cyclobenzaprine 10 mg tablet 10 mg PO TID PRN Muscle Spasm #20 04/21/25 Unknown Rx TABLETS hydrocodone-acetaminoph en 5-325mg 1 tab PO Q4H PRN PRN Pain 2 days 04/21/25 Unknown Rx 5mg-325mg #10 TABLETS prednisone 20 mg tablet 20 mg PO BID #10 tabs 04/21/25 Unk nown Rx Allergy/AdvReac Type Severity Reaction Status Date / Time No Known Allergies Allergy Verified 04/21/25 10:52 Family History Brother Colon cancer, Onset Age: 29 Father Cancer liver Kidney disease Surgical History History of shoulder surgery History of repair of anterior cruciate ligament of right knee History of tonsillectomy History of surgery on left wrist Social History Smoking Status: Current every day smoker tobacco type: cigarettes ROS ROS ED Review of Systems ROS Unobtainable: other Constitutional Constitutional ED: Reports lethargy; Denies chills, fever(s), sweats or weight loss Eyes Eyes: Denies blurry vision, change in vision or diplopia ENT ENT ED: Denies rhinorrhea or sore throat Cardiovascular Cardiovascular: Denies chest pain, orthopnea or racing heartbeat Respiratory/Chest Respiratory/Chest: Reports dyspnea and dyspnea on exertion; Denies cough, orthopnea or sputum Gastrointestinal Gastrointestinal: Denies abdominal pain, diarrhea, nausea or vomiting Genitourinary Genitourinary ED: Denies dysuria, hematuria or urinary frequency Musculoskeletal Musculoskeletal: Reports back pain and neck pain; Denies arthralgias or myalgias Integumentary Denies abscess, Abrasions or rash Neurologic Neurologic: Denies headache(s) or weakness Psychiatric Psychiatric: Denies anxiety, depression or suicidal thoughts Endocrine Endocrinology: Denies polydipsia, polyphagia or polyuria Hematologic/Lymphatic Hematologic/Lymphatic: Denies easy bleeding, easy bruising or lymphadenopathy Allergic/Immunologic Allergic/Immunologic ED: Denies mouth swelling, tongue swelling or urticaria EXAM Physical Exam Const Vital Signs: 04/21/25 10:52 Temperature 97 F L Temperature Source Temporal Pulse Rate 71 Respiratory Rate 16 Blood Pressure 131/74 H Blood Pressure Mean 93 Pulse Ox 99 Oxygen Delivery Method Room Air Positive well nourished and well developed General Appearance ED: well developed and NAD HEENT Reports TM's clear and moist mucous membranes normocephalic and atraumatic; Negative for trauma or tenderness Tympanic Membrane ED: Yes TM's clear Eyes PERRL and EOMs intact bilaterally General Eye ED: Negative for pale conjunctiva or scleral icterus Neck no lymphadenopathy, supple and no JVD Neck Narrative: Diffuse tenderness to palpation over the C-spine as well as the left cervical paraspinal musculature. No bony depressions on exam. There is no erythema or warmth noted. No abnormal swelling noted. General: Negative for tenderness Chest Wall inspection of chest normal and palpation of chest normal Chest: Negative for tenderness Resp normal respiratory effort and clear to auscultation bilaterally Effort and Inspection: Negative fo (more content not included)... Normal [facility] ED Prov Noteon 03-02-2025 ED Prov Note ED PROVIDER NOTE [facility] EMERGENCY DEPARTMENT NAME: Ajit Zhu AGE: 39 y.o. : 1985 VISIT DATE: 03/02/2025 CSN: [id number] PCP: System, Provider Not In Chief Complaint Patient presents with Finger Injury The patient presented to the emergency room with complaint he smashed his right index finger earlier today and he has pain in the distal finger, there is minimal swelling but no injury to the fingernail, no broken skin, no deformity, he is able to flex his finger Past Medical History: Diagnosis Date Bipolar 1 disorder (HCC) Past Surgical History: Procedure Laterality Date BACK SURGERY KNEE SURGERY SHOULDER SURGERY WRIST SURGERY History reviewed. No pertinent family history. Social History [1] Previous Medications Medication Sig cloNIDine HCL (CATAPRES) 0.1 MG tablet Take 0.1 mg by mouth 2 (two) times a day . (Patient not taking: Reported on 03/02/2025 .) dexAMETHasone 0.5 mg/5 mL elixir Take 10 mL, swish and spit 3 times daily x 5 days. . (Patient not taking: Reported on 03/02/2025 .) ondansetron (ZOFRAN-ODT) 4 MG disintegrating tablet Dissolve 1 (one) tablet (4 mg total) on top of tongue every 8 (eight) hours as needed for nausea . (Patient not taking: Reported on 04/06/2024 .) Allergies[2] Review of Systems All other systems reviewed and are negative. Patient Vitals for the past 24 hrs: BP Temp Pulse Resp SpO2 Height Weight 03/02/25 2256 (!) 139/93 97.9 degrees F (36.6 degrees C) 75 16 97 % -- -- 03/02/255 -- -- -- -- -- 5' 8 90.7 kg (200 lb) Physical Exam Vitals and nursing note reviewed. Constitutional: General: He is not in acute distress. HENT: Head: Normocephalic. Eyes: Extraocular Movements: Extraocular movements intact. Musculoskeletal: General: Normal range of motion. Cervical back: Neck supple. Pulmonary: Effort: Pulmonary effort is normal. No respiratory distress. Skin: General: Skin is warm. Neurological: General: No focal deficit present. Mental Status: He is alert and oriented to person, place, and time. Laboratory & Radiographic Imaging (if done): No results found for this visit on 03/02/25. XR Finger(s) Right 2+ Views (Results Pending) Procedures Medical Decision Making Discussed with the patient his minora right index finger contusion injury, no fracture, applied finger splint by the RN, instructed the patient to apply ice packs off-and-on at home and take [id number] pain medicine as needed Problems Addressed: Contusion of right index finger without damage to nail, initial encounter: acute illness or injury Amount and/or Complexity of Data Reviewed Radiology: ordered and independent interpretation performed. Details: I reviewed the x-ray, no acute fracture The patient has been informed that they may have pre-hypertension or hypertension based on a blood pressure reading in the Emergency Department. I recommend that the patient call the primary care provider listed on their discharge instructions or a physician of their choice as soon as possible to arrange follow-up in the next 4 weeks for further evaluation of possible pre-hypertension or hypertension. . Clinical Impression: 1. Contusion of right index finger without damage to nail, initial encounter ED Disposition ED Disposition Discharge Condition Stable Comment Ajit Zhu discharged to home/self care in stable condition. Follow-up Information Follow-up information has not been specified. Contact information for after-discharge care Follow-up information has not been specified. [1] Social History Socioeconomic History Marital status: Legally Tobacco Use Smoking status: Every Day Current packs/day: 0.50 Types: Cigarettes Smokeless tobacco: Former Vaping Use Vaping status: Some Days Substances: Nicotine, Flavoring Devices: Disposable, Pre-filled or refillable cartridge, Refillable tank, Pre-filled pod Substance and Sexual Activity Alcohol use: Yes Comment: SOCIALLY Drug use: Never [2] No Known Allergies Alexus Aviles MD 03/02/25 2316 AUTHENTICATED BY ALEXUS AVILES, ON 03/02/2025 23:16:52 [facility] XR FINGER(S) RIGHT 2+ VIEWSo n 03-02-2025 XR FINGER(S) RIGHT 2+ VIEWS EXAMINATION: XR FINGER(S) RIGHT 2+ VIEWS 03/02/2025 8:06 pm HISTORY: ORDERING SYSTEM PROVIDED HISTORY: Smashed Right Pointer Finger Between Ball Joint AND Hitch on Truck, TECHNOLOGIST PROVIDED HISTORY: Injury/Trauma Reason for exam: Smashed Right Pointer Finger Between Ball Joint AND Hitch on Truck Cancer History: u Surgery, RadiationHistory: u Encounter Type: Initial Mechanism of injury: trauma ORDERING SYSTEM PROVIDED DIAGNOSIS CODES: COMPARISON: None FINDINGS: No acute fracture of the right 2nd digit is seen. Joint alignment is normal. Joint spaces are preserved. Mild soft tissue swelling is seen. IMPRESSION: No acute fracture or malalignment of the right 2nd digit. Workstation ID: [id number] Dictated by: FELIPE BERNABE on SatMar 03, 2025 12:35:22 AM EDT Transcribed by: FELIPE BERNABE on SatMar 03, 2025 12:35:22 AM EDT Finalized by: FELIPE BERNABE on SatMar 03, 2025 12:35:22 AM EDT [facility] Comment on above: Order Comment: Injur y/Trauma or Illness?:Injury/Trauma How long have you had these symptoms (acute/chronic)?:Acute Reason for exam?:Smashed Right Pointer Finger Between Ball Joint AND Hitch on Truck History of cancer?:u Surgeries, chemotherapy, or radiation?:u Type of Exam?:Initial Mechanism of injury?:trauma Anion gap in Serum or Plasma Ordered By: Genesis Collazo on 02-11-2025 Anion gap [Moles/Vol] 11 mmol/L 5-[address] [facility] BUN/creatinine ratioOrdered By: Genesis Collazo on 02-11-2025 Urea nitrogen/Creatinine [Mass ratio] 8.9 mg/mg Low 10-20 [facility] Bilirubin, totalOrdered By: Genesis Collazo on 02-11-2025 Bilirubin [Mass/Vol] 0.51 mg/dL 0.00-1.30 [facility] Carbon dioxide, total [Moles /volume] in Central venous bloodOrdered By: Genesis Collazo on 02-11-2025 CO2 [Moles/Vol] 19.5 mmol/L Low 21.0-32.0 [facility] Chloride assayOrdered By: Katie Collazo on 02-11-2025 Chloride [Moles/Vol] 107 mmol/L 98-108 [facility] Comprehensive Metabolic Prof ilon 02-11-2025 Albumin [Mass/Vol] 4.3 g/dL Normal 3.5-5.0 [facility] Comment on above: Performed By: #### L 501.9060, L501.9520, L500.4050 ####[facility] [address] [place], [address] Albumin/Globulin [Mass ratio] 1.5 {ratio} Normal 0.9-2.4 [facility] Comment on above: Performed By: #### L 501.9060, L501.9520, L500.4050 ####[facility] [address] [place], [address] ALK PHOS 95 U/L Normal 40-129 [facility] Comment on above: Performed By: #### L 501.9060, L501.9520, L500.4050 ####[facility] [address] [place], [address] ALT [Catalytic activity/Vol] 39 U/L Normal <=46 [facility] Comment on above: Performed By: #### L 501.9060, L501.9520, L500.4050 ####[facility] [address] [place], [address] AST [Catalytic activity/Vol] 33 U/L Normal <=37 [facility] Comment on above: Performed By: #### L 501.9060, L501.9520, L500.4050 ####[facility] [address] [place], [address] Bilirubin [Mass/Vol] 0.51 mg/dL Normal 0.00-1.30 [facility] Comment on above: Performed By: #### L 501.9060, L501.9520, L500.4050 ####[facility] [address] [place], [address] BUN/CRE 8.9 RATIO Low 10-20 [facility] Comment on above: Performed By: #### L 501.9060, L501.9520, L500.4050 ####[facility] [address] [place], [address] Calcium [Mass/Vol] 9.6 mg/dL Normal 7.6-11.0 [facility] Comment on above: Performed By: #### L 501.9060, L501.9520, L500.4050 ####[facility] [address] [place], [address] Chloride [Moles/Vol] 107 mmol/L Normal 98-108 [facility] Comment on above: Performed By: #### L 501.9060, L501.9520, L500.4050 ####[facility] [address] [place], [address] CO2 [Moles/Vol] 19.5 mmol/L Low 21.0-32.0 [facility] Comment on above: Performed By: #### L 501.9060, L501.9520, L500.4050 ####[facility] [address] [place], [address] Creatinine [Mass/Vol] 1.02 mg/dL Normal 0.70-1.[address] [facility] Comment on above: Performed By: #### L 501.9060, L501.9520, L500.4050 ####[facility] [address] [place], [address] GAP 11 Normal 5-15 [facility] Comment on above: Performed By: #### L 501.9060, L501.9520, L500.4050 ####[facility] [address] [place], [address] GFR/1.73 sq M.predicted among non-blacks MDRD (S/P/Bld) [Vol rate/Area] 95 mL/min/{1.73_m2} Normal >60 [facility] Comment on above: Result Comment: mL/m in/1.73m2 CKD-EPI Creatinine Equation (2020) Performed By: #### L 501.9060, L501.9520, L500.4050 ####[facility] [address] [place], [address] Globulin (S) [Mass/Vol] 2.9 g/dL Normal 2.2-4.2 [facility] Comment on above: Performed By: #### L 501.9060, [id number], L500.4050 ####[facility] [address] [place], [address] Glucose [Mass/Vol] 111 mg/dL High 70-99 [facility] Comment on above: Performed By: #### L 501.9060, L501.9520, L500.4050 ####[facility] [address] [place], [address] Potassium [Moles/Vol] 4.3 mmol/L Normal 3.3-5.[address] [facility] Comment on above: Result Comment: Hemo lysis present, Results??could be affected. ?? Performed By: #### L 501.9060, [id number], L500.4050 ####[facility] [address] [place], [address] Sodium [Moles/Vol] 137 mmol/L Normal 133-145 [facility] Comment on above: Performed By: #### L 501.9060, L501.9520, L500.4050 ####[facility] [address] [place], [address] T PROT 7.2 g/dL Normal 5.9-8.4 [facility] Comment on above: Performed By: #### L 501.9060, L501.9520, L500.4050 ####[facility] [address] [place], [address] Urea nitrogen [Mass/Vol] 9 mg/dL Normal 4-19 [facility] Comment on above: Performed By: #### L 501.9060, L501.9520, L500.4050 ####[facility] [address] [place], [place], [id number] GFR/1.73 sq M.predicted laina g non-blacks MDRD (S/P/Bld) [Vol rate/Area]Ordered By: Genesis Collazo on 02-11-2025 Estimated GFR (MDRD) Non-Af Amer 95 >60 [facility] Comment on above: mL/min/1.73m2 CKD-EP I Creatinine Equation (2020) Glomerular filtration rate ( GFR) estimation/1.73 sq m using serum, plasma, or whole bOrdered By: Genesis Collazo on 02-11-2025 GFR/1.73 sq M.predicted among non-blacks MDRD (S/P/Bld) [Vol rate/Area] 95 mL/min/{1.73_m2} >60 [facility] Comment on above: mL/min/1.73m2 CKD-EP I Creatinine Equation (2020) Laboratory - Chemistry and C hemistry - challengeOrdered By: Genesis Collazo on 02-11-2025 AST [Catalytic activity/Vol] 33 U/L <38 [facility] Lithiumon 02-11-2025 LI 0.24 mmol/L Low 0.60-1.20 [facility] Comment on above: Order Comment: [id number] Performed By: #### L 501.9060, L501.9520, L500.4050 ####[facility] [address] [place], [place], [address] [place] levelOrdered By: Lisette Collazo on 02-11-2025 [place] Level 0.24 mmol/L Low 0.60-1.20 [facility] Potassium (Unsp spec) [Mass/ Vol]Ordered By: Genesis Collazo on 02-11-2025 Potassium [Moles/Vol] 4.3 mmol/L 3.3-5.[address] [facility] Comment on above: Hemolysis present, R esults could be affected. Potassium measurement (mass/ volume)Ordered By: Genesis Collazo on 02-11-2025 Potassium (Unsp spec) [Mass/Vol] 4.3 mmol/L 3.3-5.1 [facility] Comment on above: Hemolysis present, R esults could be affected. Serum creatinine measurement (mass/volume)Ordered By: Genesis Collazo on 02-11-2025 Creatinine [Mass/Vol] 1.02 mg/dL 0.70-1.[address] [facility] Serum globulin measurementOr dered By: Genesis Collazo on 02-11-2025 Globulin (S) [Mass/Vol] 2.9 g/dL 2.2-4.2 [facility] Serum glucose measurement (m ass/volume)Ordered By: Genesis Collazo on 02-11-2025 Glucose [Mass/Vol] 111 mg/dL High 70-99 [facility] Serum or plasma alanine lima otransferase (ALT) measurementOrdered By: Genesis Collazo on 02-11-2025 ALT [Catalytic activity/Vol] 39 U/L <47 [facility] Serum or plasma albumin esme urement (mass/volume)Ordered By: Genesis Collazo on 02-11-2025 Albumin [Mass/Vol] 4.3 g/dL 3.5-5.0 [facility] Serum or plasma albumin/glob ulin mass ratioOrdered By: Genesis Collazo on 02-11-2025 Albumin/Globulin [Mass ratio] 1.5 {ratio} 0.9-2.4 [facility] Serum or plasma alkaline bere sphatase measurementOrdered By: Genesis Collazo on 02-11-2025 ALP [Catalytic activity/Vol] 95 U/L 40-129 [facility] Serum or plasma calcium esme urement (mass/volume)Ordered By: Genesis Collazo on 02-11-2025 Calcium [Mass/Vol] 9.6 mg/dL 7.6-11.0 [facility] Serum or plasma urea nitroge n measurement (mass/volume)Ordered By: Genesis Collazo on 02-11-2025 Urea nitrogen [Mass/Vol] 9 mg/dL 4-19 [facility] Sodium levelOrdered By: Genesis Collazo on 02-11-2025 Sodium [Moles/Vol] 137 mmol/L 133-145 [facility] TSH DL <= 0.005 mIU/L QnOrde red By: Genesis Collazo on 02-11-2025 Thyroid Stimulating Hormone (TSH) 1.910 uIU/mL 0.300-4.200 [facility] TSH Qn 1.910 uIU/mL 0.300-4.200 [facility] Thyroid Stim Hormone (TSH)on 02-11-2025 TSH 1.910 uIU/mL Normal 0.300-4.200 [facility] Comment on above: Performed By: #### L 501.9060, L501.9520, L500.4050 ####[facility] [address] [place], [place], [address] Total proteinOrdered By: Lisette Collazo on 02-11-2025 Protein [Mass/Vol] 7.2 g/dL 5.9-8.4 [facility] Abdomen/Pelvis W IV Cont ONL Yon 01-05-2025 Abdomen/Pelvis W IV Cont ONLY [facility] [address] [place], [place] [address] Abdomen/Pelvis W IV Cont ONLY MR#: [id number] Acct: [id number] Name: AJIT ZHU Rep #: [id number] : 1985 M 39 From: Martin ortgea MD PCP: Care Physician,No Primary Status: REG ER Study: Abdomen/Pelvis W IV Cont ONLY Date of Exam: Exam# [id number] Ordering Dr: Ray Broussard MD PROCEDURE: ABDOMEN/PELVIS W IV CONT ONLY REASON FOR EXAM: Right-sided flank pain with nausea. TECHNIQUE: Abdomen and pelvis CT with intravenous contrast. No oral contrast. IV CONTRAST: 100 cc of Isovue-300. COMPARISON: Comparison is made with prior study of January 29, 2019. FINDINGS: Lung bases: Clear Liver: Unremarkable. Gallbladder: Unremarkable. Spleen: Unremarkable. Pancreas: Unremarkable. Adrenals: Unremarkable. Kidneys: 2 mm nonobstructive calculus in the mid pole calyx of the right kidney. Bladder: Unremarkable.. Central prostatic calcification. Reproductive Organs: Unremarkable. Bowel: Colonic diverticulosis without diverticulitis. Appendix: Normal. Lymph nodes: No suspicious lymph node enlargement. Vasculature: Mild diffuse atherosclerotic calcifications are noted. Peritoneum / Retroperitoneum: No ascites. No free air. Small umbilical hernia containing fat. Bones: Degenerative changes of the spine. A spinal cord stimulator device is seen. CT/Abdomen/Pelvis W IV Cont ONLY IMPRESSION: Nonobstructive calculus in the midpole calyx of the right kidney. No evidence of urinary tract obstruction. Sigmoid diverticulosis. One or more dose reduction techniques were used (e.g., Automated exposure control, adjustment of the mA and/or kV according to patient size, use of iterative reconstruction technique). Reading Location: [id number] CC: Dr. Ray Broussard MD; No Primary Care Physician Meter Tester Primary: Signed Normal [facility] Absolute lymphocyte countOrd ered By: Rayelsa Broussard on 01-05-2025 Lymphocytes Auto (Unsp spec) [#/Vol] 2.76 10*3/uL 0.83-4.51 [facility] Absolute neutrophil countOrd ered By: [facility] 01-[facility] Neutrophils (Bld) [#/Vol] 6.7 10*3/uL 2.0-7.7 [facility] Anion gap in Serum or Plasma Ordered By: ED PROVIDER on 01-05-2025 Anion gap [Moles/Vol] 10 mmol/L 5-[address] [facility] Automated lymphocyte count a s percentage of total leukocytesOrdered By: Rayelsa Broussard on 01-05-2025 Lymphocytes/100 WBC Auto (Unsp spec) 26.1 % 19-41 [facility] BUN/creatinine ratioOrdered By: ED PROVIDER on 01-05-2025 Urea nitrogen/Creatinine [Mass ratio] 12.2 mg/mg 10-20 [facility] Bacteria LM.HPF (Urine sed) [#/Area]Ordered By: Rayelsa Broussard on 01-05-2025 Urine Bacteria RARE /hpf None Seen [facility] Basophil percentageOrdered B y: Rayelsa Broussard on 01-05-2025 Basophils/100 WBC (Bld) 0.7 % 0-1 [facility] Bilirubin Test strip Ql (U)O rdered By: Ray Broussard on 01-05-2025 Bilirubin Ql (U) Negative Negative [facility] Bilirubin, totalOrdered By: ED PROVIDER on 01-05-2025 Bilirubin [Mass/Vol] 0.25 mg/dL 0.00-1.30 [facility] CBC W/Diff, Automatedon PLT EST A Normal ADEQ [facility] Comment on above: Performed By: #### L 100.0100, L500.4050 #### [facility] [address] [place], [address] REACTIVE LYMPH 2+ Normal [facility] Comment on above: Performed By: #### L 100.0100, L500.4050 #### [facility] [address] [place], [address] Carbon dioxide, total [Moles /volume] in Central venous bloodOrdered By: ED PROVIDER on 01-05-2025 CO2 [Moles/Vol] 21.5 mmol/L 21.0-32.0 [facility] Chloride assayOrdered By: ED PROVIDER on 01-05-2025 Chloride [Moles/Vol] 109 mmol/L High 98-108 [facility] Comprehensive Metabolic Prof ilon 01-05-2025 Albumin [Mass/Vol] 4.1 g/dL Normal 3.5-5.0 [facility] Comment on above: Performed By: #### L 100.0100, L500.4050 #### [facility] [address] [place], [address] Albumin/Globulin [Mass ratio] 1.5 {ratio} Normal 0.9-2.4 [facility] Comment on above: Performed By: #### L 100.0100, L500.4050 #### [facility] [address] [place], [address] ALK PHOS 90 U/L Normal 40-129 [facility] Comment on above: Performed By: #### L 100.0100, L500.4050 #### [facility] [address] [place], [address] ALT [Catalytic activity/Vol] 34 U/L Normal <=46 [facility] Comment on above: Performed By: #### L 100.0100, L500.4050 #### [facility] [address] [place], [address] AST [Catalytic activity/Vol] 24 U/L Normal <=37 [facility] Comment on above: Performed By: #### L 100.0100, L500.4050 #### [facility] [address] [place], [address] Bilirubin [Mass/Vol] 0.25 mg/dL Normal 0.00-1.30 [facility] Comment on above: Performed By: #### L 100.0100, L500.4050 #### [facility] [address] [place], [address] BUN/CRE 12.2 RATIO Normal 10-20 [facility] Comment on above: Performed By: #### L 100.0100, L500.4050 #### [facility] [address] [place], [address] Calcium [Mass/Vol] 9.7 mg/dL Normal 7.6-11.0 [facility] Comment on above: Performed By: #### L 100.0100, L500.4050 #### [facility] [address] [place], [address] Chloride [Moles/Vol] 109 mmol/L High 98-108 [facility] Comment on above: Performed By: #### L 100.0100, L500.4050 #### [facility] [address] [place], [address] CO2 [Moles/Vol] 21.5 mmol/L Normal 21.0-32.0 [facility] Comment on above: Performed By: #### L 100.0100, L500.4050 #### [facility] [address] [place], [address] Creatinine [Mass/Vol] 0.88 mg/dL Normal 0.70-1.[address] [facility] Comment on above: Performed By: #### L 100.0100, L500.4050 #### [facility] [address] [place], [address] ECRCL 126.64 ml/min Normal 50-250 [facility] Comment on above: Performed By: #### L 100.0100, L500.4050 #### [facility] [address] [place], [address] GAP 10 Normal 5-15 [facility] Comment on above: Performed By: #### L 100.0100, L500.4050 #### [facility] [address] [place], [address] GFR/1.73 sq M.predicted among non-blacks MDRD (S/P/Bld) [Vol rate/Area] 111 mL/min/{1.73_m2} Normal >60 [facility] Comment on above: Result Comment: mL/m in/1.73m2 CKD-EPI Creatinine Equation (2020) Performed By: #### L 100.0100, L500.4050 #### [facility] [address] [place], [address] Globulin (S) [Mass/Vol] 2.8 g/dL Normal 2.2-4.2 [facility] Comment on above: Performed By: #### L 100.0100, L500.4050 #### [facility] [address] [place], [address] Glucose [Mass/Vol] 100 mg/dL High 70-99 [facility] Comment on above: Performed By: #### L 100.0100, L500.4050 #### [facility] [address] [place], [address] Potassium [Moles/Vol] 4.3 mmol/L Normal 3.3-5.[address] [facility] Comment on above: Performed By: #### L 100.0100, L500.4050 #### [facility] [address] [place], [address] Sodium [Moles/Vol] 141 mmol/L Normal 133-145 [facility] Comment on above: Performed By: #### L 100.0100, L500.4050 #### [facility] [address] [place], [address] T PROT 6.9 g/dL Normal 5.9-8.4 [facility] Comment on above: Performed By: #### L 100.0100, L500.4050 #### [facility] [address] [place], [address] Urea nitrogen [Mass/Vol] 11 mg/dL Normal 4-19 [facility] Comment on above: Performed By: #### L 100.0100, L500.4050 #### [facility] [address] [place], [address] Emergency Department Summary on 01-05-2025 Emergency Department Summary [facility] Medical Records Department [address] [place] [address] Emergency Department Summary 01/05/25 MR#: [id number] Acct: [id number] Name: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 maxillary second premolar (tooth#13), which can be seen with dental infection, particularly given the clinical setting. Facial CT with contrast could be obtained to assess for associated soft tissue abscess. 2. Multiple dental caries with associated smaller scattered periapical lucencies including teeth # 3, 5, and 10 I personally viewed and interpreted these images and I have reviewed and approved this report. Normal [facility] XR Teeth Bitewing Viewson IMPRESSION: 1. Large periapical lucency involving what appears to be the left maxillary second premolar (tooth#13), which can be seen with dental infection, particularly given the clinical setting. Facial CT with contrast could be obtained to assess for associated soft tissue abscess. 2. Multiple dental caries with associated smaller scattered periapical lucencies including teeth # 3, 5, and 10 I personally viewed and interpreted these images and I have reviewed and approved this report. OLOGY EXAM: XR PANOREX (TEETH), 09/09/2024 19:58 PM CLINICAL INDICATIONS: for left upper tooth pain. COMPARISON: No prior studies available for comparison. TECHNIQUE: Single Panorex image obtained. FINDINGS: Scattered dental amalgams. Status post root canals of teeth # 12 and 20. Mandibular teeth crowding is noted. Multiple dental caries, most pronounced involving teeth # 13 and 14. A large periapical lucency involves what appears to be the left maxillary second premolar. Additional smaller scattered periapical lucencies include teeth # 3, 5, and 10. RADIOLOGY Anthony Guillaume M D - 09/09/2024 EXAM: XR PANOREX (TEETH), 09/09/2024 19:58 PM CLINICAL INDICATIONS: for left upper tooth pain. COMPARISON: No prior studies available for comparison. TECHNIQUE: Single Panorex image obtained. FINDINGS: Scattered dental amalgams. Status post root canals of teeth # 12 and 20. Mandibular teeth crowding is noted. Multiple dental caries, most pronounced involving teeth # 13 and 14. A large periapical lucency involves what appears to be the left maxillary second premolar. Additional smaller scattered periapical lucencies include teeth # 3, 5, and 10. IMPRESSION IMPRESSION: 1. Large periapical lucency involving what appears to be the left maxillary second premolar (tooth#13), which can be seen with dental infection, particularly given the clinical setting. Facial CT with contrast could be obtained to assess for associated soft tissue abscess. 2. Multiple dental caries with associated smaller scattered periapical lucencies including teeth # 3, 5, and 10 I personally viewed and interpreted these images and I have reviewed and approved this report. [facility] Radiology Study observation (narrative) [facility] XR Teeth Bitewing ViewsOrder ed By: Anthony Guillaume on 09-09-2024 [facility] Work Phone: ED Prov Noteon 09-04-2024 ED Prov Note ED PROVIDER NOTE [facility] EMERGENCY DEPARTMENT NAME: Ajit Zhu AGE: 39 y.o. : 1985 VISIT DATE: 09/04/2024 CSN: [id number] PCP: System, Provider Not In Chief Complaint Patient presents with Hand Pain The patient presented to the emergency room with complaint he injured his left hand, the patient hit the steering wheel because he was very angry, the patient has history of bipolar disorder with history of anger reaction, the patient has no deformity of the head, the range of motion is intact Hand Pain Past Medical History: Diagnosis Date Bipolar 1 disorder (HCC) Past Surgical History: Procedure Laterality Date BACK SURGERY KNEE SURGERY SHOULDER SURGERY WRIST SURGERY History reviewed. No pertinent family history. Social History Socioeconomic History Marital status: Legally Tobacco Use Smoking status: Every Day Current packs/day: 0.50 Types: Cigarettes Smokeless tobacco: Former Vaping Use Vaping status: Some Days Substances: Nicotine, THC, CBD, Flavoring Devices: Disposable, Pre-filled or refillable cartridge, Refillable tank, Pre-filled pod Substance and Sexual Activity Alcohol use: Yes Comment: SOCIALLY Drug use: Never Previous Medications Medication Sig cloNIDine HCL (CATAPRES) 0.1 MG tablet Take 0.1 mg by mouth 2 (two) times a day . dexAMETHasone 0.5 mg/5 mL elixir Take 10 mL, swish and spit 3 times daily x 5 days. . ondansetron (ZOFRAN-ODT) 4 MG disintegrating tablet Dissolve 1 (one) tablet (4 mg total) on top of tongue every 8 (eight) hours as needed for nausea . (Patient not taking: Reported on 04/06/2024 .) No Known Allergies Review of Systems All other systems reviewed and are negative. Patient Vitals for the past 24 hrs: BP Temp Pulse Resp SpO2 Height Weight 09/04/24 1850 (!) 130/90 98.3 degrees F (36.8 degrees C) 80 16 95 % 5' 8 90.7 kg (200 lb) Physical Exam Vitals and nursing note reviewed. Constitutional: General: He is not in acute distress. HENT: Head: Normocephalic. Eyes: Extraocular Movements: Extraocular movements intact. Musculoskeletal: General: Normal range of motion. Cervical back: Neck supple. Pulmonary: Effort: Pulmonary effort is normal. No respiratory distress. Skin: General: Skin is warm. Neurological: General: No focal deficit present. Mental Status: He is alert and oriented to person, place, and time. Laboratory & Radiographic Imaging (if done): No results found for this visit on 09/04/24. XR Hand Left 3+ Views (Standard) (Results Pending) Procedures Medical Decision Making I discussed with the patient his benign left hand exam, negative x-ray for any fracture, likely he has hand contusion prescribed naproxen for pain Problems Addressed: Contusion of dorsum of left hand: acute illness or injury Amount and/or Complexity of Data Reviewed Radiology: ordered and independent interpretation performed. Details: I reviewed the hand x-ray myself, no evidence of acute fracture The patient has been informed that they may have pre-hypertension or hypertension based on a blood pressure reading in the Emergency Department. I recommend that the patient call the primary care provider listed on their discharge instructions or a physician of their choice as soon as possible to arrange follow-up in the next 4 weeks for further evaluation of possible pre-hypertension or hypertension. . Clinical Impression: 1. Contusion of dorsum of left hand ED Disposition ED Disposition Discharge Condition Stable Comment Ajit Zhu discharged to home/self care in stable condition. Follow-up Information Follow-up information has not been specified. Contact information for after-discharge care Follow-up information has not been specified. New Prescriptions naproxen (NAPROSYN) 375 MG tablet Take 1 (one) tablet (375 mg total) by mouth 2 (two) times a day as needed . Alexus Aviles MD 09/04/241936 AUTHENTICATED BY ALEXUS AVILES, ON 09/04/2024 19:37:10 [facility] XR HAND LEFT 3+ VIEWS (STAND FELICIANO)on 09-04-2024 XR HAND LEFT 3+ VIEWS (STANDARD) EXAMINATION: XR HAND LEFT 3+ VIEWS (STANDARD) 09/04/2024 6:58 pm HISTORY: ORDERING SYSTEM PROVIDED HISTORY: injury, TECHNOLOGIST PROVIDED HISTORY: Injury/Trauma Reason for exam: punched a steering wheel. pain in 3-5 fingers Cancer History: u Surgery, RadiationHistory: u Encounter Type: Initial Mechanism of injury: punched steering wheel ORDERING SYSTEM PROVIDED DIAGNOSIS CODES: IMPRESSION: FINDINGS/ 1. There is mild volar bowing deformity of the mid diaphysis of the left 5th metacarpal, most likely due to old trauma/old healed fracture. 2. No acute fracture, malalignment, significant arthritis or other acute bony abnormality is seen. Workstation ID: [id number] Dictated by: EMILY BROWN on SatSep 04, 2024 8:46:39 PM EDT Transcribed by: EMILY BROWN on SatSep 04, 2024 8:46:39 PM EDT Finalized by: EMILY BROWN on SatSep 04, 2024 8:46:39 PM EDT [facility] Comment on above: Order Comment: Injur y/Trauma or Illness?:Injury/Trauma How long have you had these symptoms (acute/chronic)?:Acute Reason for exam?:punched a steering wheel. pain in 3-5 fingers History of cancer?:u Surgeries, chemotherapy, or radiation?:u Type of Exam?:Initial Mechanism of injury?:punched steering wheel C REACTIVE PROTEINon 024 CRP [Mass/Vol] 6.5 mg/L 0 - 10 MG/L [facility] CRP [Mass/Vol] 6.5 mg/L Normal 0-10 [facility] Comment on above: Performed By: #### C REACT, CMPF, MG, ACBC, PT, ESR ####[place] [address] CBCon 08-23-2024 ABSOLUTE BAS 0.1 10*3/uL Normal 0.0-0.2 [facility] Comment on above: Performed By: #### C REACT, CMPF, MG, ACBC, PT, ESR ####[place] [address] ABSOLUTE EOS 0.2 10*3/uL Normal 0.0-0.7 [facility] Comment on above: Performed By: #### C REACT, CMPF, MG, ACBC, PT, ESR ####Testing performed at [place] [id number] ABSOLUTE NEUTROPHIL COUNT 6.7 10*3/uL High 1.4-6.5 [facility] Comment on above: Performed By: #### C REACT, CMPF, MG, ACBC, PT, ESR ####Testing performed at [place] [id number] Basophils/100 WBC (Bld) 0.5 % Normal 0.0-2.0 [facility] Comment on above: Performed By: #### C REACT, CMPF, MG, ACBC, PT, ESR ####Testing performed at [place] [id number] DTYPE AUTO DIFF Normal [facility] Comment on above: Performed By: #### C REACT, CMPF, MG, ACBC, PT, ESR ####Testing performed at [place] [id number] Eosinophils/100 WBC (Bld) 1.7 % Normal 0.0-11.0 [facility] Comment on above: Performed By: #### C REACT, CMPF, MG, ACBC, PT, ESR ####Testing performed at [place] [id number] Erythrocyte distribution width (RBC) [Ratio] 13.7 % Normal 11.5-14.5 [facility] Comment on above: Performed By: #### C REACT, CMPF, MG, ACBC, PT, ESR ####[place] [address] Hematocrit (Bld) [Volume fraction] 45.5 % Normal 42.0-52.0 [facility] Comment on above: Performed By: #### C REACT, CMPF, MG, ACBC, PT, ESR ####Testing performed at [place] [id number] Hemoglobin (Bld) [Mass/Vol] 15.7 g/dL Normal 14.0-18.0 [facility] Comment on above: Performed By: #### C REACT, CMPF, MG, ACBC, PT, ESR ####Testing performed at [place] [id number] Lymphocytes (Bld) [#/Vol] 2.6 10*3/uL Normal 1.2-3.4 [facility] Comment on above: Performed By: #### C REACT, CMPF, MG, ACBC, PT, ESR ####Testing performed at [place] [id number] Lymphocytes/100 WBC (Bld) 25.0 % Normal 20.0-55.0 [facility] Comment on above: Performed By: #### C REACT, CMPF, MG, ACBC, PT, ESR ####Testing performed at [place] [id number] MCH (RBC) [Entitic mass] 32.9 pg Normal 26.0-35.0 [facility] Comment on above: Performed By: #### C REACT, CMPF, MG, ACBC, PT, ESR ####Testing performed at [address] [address] MCHC (RBC) [Mass/Vol] 34.5 g/dL Normal 27.0-37.0 [facility] Comment on above: Performed By: #### C REACT, CMPF, MG, ACBC, PT, ESR ####Testing performed at [place] [id number] MCV (RBC) [Entitic vol] 95.6 fL Normal 80.0-100.0 [facility] Comment on above: Performed By: #### C REACT, CMPF, MG, ACBC, PT, ESR ####[place] [address] Monocytes (Bld) [#/Vol] 0.8 10*3/uL High 0.0-0.7 [facility] Comment on above: Performed By: #### C REACT, CMPF, MG, ACBC, PT, ESR ####Testing performed at [place] [id number] Monocytes/100 WBC (Bld) 7.5 % Normal 0.0-10.0 [facility] Comment on above: Performed By: #### C REACT, CMPF, MG, ACBC, PT, ESR ####Testing performed at [place] [id number] Neutrophils/100 WBC (Bld) 65.3 % Normal 37.0-75.0 [facility] Comment on above: Performed By: #### C REACT, CMPF, MG, ACBC, PT, ESR ####Testing performed at [place] [id number] Platelet mean volume (Bld) [Entitic vol] 10.3 fL Normal 7.4-11.0 [facility] Comment on above: Performed By: #### C REACT, CMPF, MG, ACBC, PT, ESR ####Testing performed at [address] [address] Platelets (Bld) [#/Vol] 198 10*3/uL Normal 130-400 [facility] Comment on above: Performed By: #### C REACT, CMPF, MG, ACBC, PT, ESR ####[place] [address] RBC (Bld) [#/Vol] 4.76 10*6/uL Normal 4.0-6.1 [facility] Comment on above: Performed By: #### C REACT, CMPF, MG, ACBC, PT, ESR ####Testing performed at [address] [address] WBC (Bld) [#/Vol] 10.3 10*3/uL Normal 3.6-11.0 [facility] Comment on above: Performed By: #### C REACT, CMPF, MG, ACBC, PT, ESR ####Testing performed at [address] [address] CBC, EDIF, PLATELETon 2023 ABSOLUTE BASOPHIL COUNT 0.1 10*3/uL 0.0 - 0.2 10*3/uL [facility] Basophils/100 WBC (Bld) 0.5 % 0.0 - 2.0 % [facility] Differential cell count method Nom (Bld) AUTO DIFF % [facility] Eosinophils (Bld) [#/Vol] 0.2 10*3/uL 0.0 - 0.7 10*3/uL [facility] Eosinophils/100 WBC (Bld) 1.7 % 0.0 - 11.0 % [facility] Erythrocyte distribution width (RBC) [Ratio] 13.7 % 11.5 - 14.5 % [facility] Hematocrit (Bld) [Volume fraction] 45.5 % 42.0 - 52.0 % [facility] Hemoglobin (Bld) [Mass/Vol] 15.7 g/dL [facility] Interpretation and review of laboratory results Abnormal [facility] Lymphocytes (Bld) [#/Vol] 2.6 10*3/uL 1.2 - 3.4 10*3/uL [facility] Lymphocytes/100 WBC (Bld) 25.0 % 20.0 - 55.0 % [facility] MCH (RBC) [Entitic mass] 32.9 pg 26.0 - 35.0 PG [facility] MCHC (RBC) [Mass/Vol] 34.5 g/dL [facility] MCV (RBC) [Entitic vol] 95.6 fL [facility] Monocytes (Bld) [#/Vol] 0.8 10*3/uL High 0.0 - 0.7 10*3/uL [facility] Monocytes/100 WBC (Bld) 7.5 % 0.0 - 10.0 % [facility] Neutrophils (Bld) [#/Vol] 6.7 10*3/uL High 1.4 - 6.5 10*3/uL [facility] Neutrophils/100 WBC (Bld) 65.3 % 37.0 - 75.0 % [facility] Platelet mean volume (Bld) [Entitic vol] 10.3 fL [facility] Platelets (Bld) [#/Vol] 198 10*3/uL 130 - 400 10*3/uL [facility] RBC (Bld) [#/Vol] 4.76 10*6/uL 4.0 - 6.1 10*6/uL [facility] WBC (Bld) [#/Vol] 10.3 10*3/uL 3.6 - 11.0 10*3/uL [facility] CMP FASTINGon 08-23-2024 A:G RATIO 1.6 RATIO Normal [facility] Comment on above: Performed By: #### C REACT, CMPF, MG, ACBC, PT, ESR ####[place] [address] ALBUMIN 4.5 G/dl Normal 3.5-5.0 [facility] Comment on above: Performed By: #### C REACT, CMPF, MG, ACBC, PT, ESR ####[place] [address] ALP [Catalytic activity/Vol] 106 U/L Normal 38-126 [facility] Comment on above: Performed By: #### C REACT, CMPF, MG, ACBC, PT, ESR ####[place] [address] ALT [Catalytic activity/Vol] 63 U/L High <50 [facility] Comment on above: Performed By: #### C REACT, CMPF, MG, ACBC, PT, ESR ####Testing performed at [address] [address] AST [Catalytic activity/Vol] 53 U/L Normal 17-59 [facility] Comment on above: Performed By: #### C REACT, CMPF, MG, ACBC, PT, ESR ####Testing performed at [address] [address] Bilirubin [Mass/Vol] 0.7 mg/dL Normal 0.2-1.3 [facility] Comment on above: Performed By: #### C REACT, CMPF, MG, ACBC, PT, ESR ####Testing performed at [address] [address] Calcium [Mass/Vol] 9.5 mg/dL Normal 8.4-10.2 [facility] Comment on above: Performed By: #### C REACT, CMPF, MG, ACBC, PT, ESR ####Testing performed at [address] [address] Chloride [Moles/Vol] 112 mmol/L High 98-107 [facility] Comment on above: Result Comment: Amber nuñez note: Triglyceride levels of 600mg/dL or higher may positively bias chloride results by approximately 2.1 mmol Performed By: #### C REACT, CMPF, MG, ACBC, PT, ESR ####Testing performed at [address] [address] CO2 [Moles/Vol] 23 mmol/L Normal 22-30 [facility] Comment on above: Performed By: #### C REACT, CMPF, MG, ACBC, PT, ESR ####Testing performed at [address] [address] Creatinine [Mass/Vol] 1.00 mg/dL Normal 0.70-1.20 [facility] Comment on above: Performed By: #### C REACT, CMPF, MG, ACBC, PT, ESR ####Testing performed at [place] [id number] EST. GFR, 106 ml/min/1.73sq.m [facility] Comment on above: Performed By: #### C REACT, CMPF, MG, ACBC, PT, ESR ####Testing performed at [place] [id number] EST. GFR,Non 88 ml/min/1.73sq.m [facility] Comment on above: Performed By: #### C REACT, CMPF, MG, ACBC, PT, ESR ####[place] [address] GFR Information Average GFR for 40-4 9 years old = 99. Normal [facility] Comment on above: Result Comment: [employer] Ass[employer] Analyst gayathri Kidney disease, GFR = <60. Kidney failure, GFR = <15. The GFR estimate is not adjusted for extreme body surface area or acute process, nor has it been validated for women or ethnic groups other than and . Performed By: #### C REACT, CMPF, MG, ACBC, PT, ESR ####[place] [address] Glucose [Mass/Vol] 97 mg/dL Normal 70-100 [facility] Comment on above: Result Comment: NORMAL <100 mg/dL PREDIABETES 101-126 mg/dL DIABETES 126 mg/dL or higher Performed By: #### C REACT, CMPF, MG, ACBC, PT, ESR ####[place] [address] Potassium [Moles/Vol] 3.8 mmol/L Normal 3.5-5.1 [facility] Comment on above: Performed By: #### C REACT, CMPF, MG, ACBC, PT, ESR ####[place] [address] Protein [Mass/Vol] 7.4 g/dL Normal 6.3-8.2 [facility] Comment on above: Performed By: #### C REACT, CMPF, MG, ACBC, PT, ESR ####[place] [address] Sodium [Moles/Vol] 140 mmol/L Normal 137-145 [facility] Comment on above: Performed By: #### C REACT, CMPF, MG, ACBC, PT, ESR ####Testing performed at [address] [address] Urea nitrogen [Mass/Vol] 12 mg/dL Normal 7-20 [facility] Comment on above: Performed By: #### C REACT, CMPF, MG, ACBC, PT, ESR ####Testing performed at [address] [address] COMPREHENSIVE METABOLIC PANE Suresh 08-23-2024 Albumin [Mass/Vol] 4.5 G/dl 3.5 - 5.0 G/dl [facility] Albumin/Globulin [Mass ratio] 1.6 {ratio} RATIO [facility] ALP [Catalytic activity/Vol] 106 U/L [facility] ALT [Catalytic activity/Vol] 63 U/L High NINF [facility] AST [Catalytic activity/Vol] 53 U/L [facility] Bilirubin [Mass/Vol] 0.7 mg/dL [facility] Calcium [Mass/Vol] 9.5 mg/dL [facility] Chloride [Moles/Vol] 112 mmol/L High [facility] Comment on above: Please note: Triglyc eride levels of 600mg/dL or higher may positively bias chloride results by approximately 2.1 mmol CO2 [Moles/Vol] 23 mmol/L [facility] Creatinine [Mass/Vol] 1.00 mg/dL [facility] GFR COMMENT Average GFR for 40-4 9 years old = 99. [facility] Comment on above: Chronic Kidney disea se, GFR = <60. Kidney failure, GFR = <15. The GFR estimate is not adjusted for extreme body surface area or acute process, nor has it been validated for women or ethnic groups other than and . GFR/1.73 sq M.predicted among blacks MDRD (S/P/Bld) [Vol rate/Area] 106 mL/min/{1.73_m2} ml/min/1.73sq. m [facility] GFR/1.73 sq M.predicted among non-blacks MDRD (S/P/Bld) [Vol rate/Area] 88 mL/min/{1.73_m2} ml/min/1.73sq. m [facility] Glucose post fast [Mass/Vol] 97 mg/dL [facility] Comment on above: NORMAL <100 mg/dL PREDIABETES 101-126 mg/dL DIABETES 126 mg/dL or higher Interpretation and review of laboratory results Abnormal [facility] Potassium [Moles/Vol] 3.8 mmol/L [facility] Protein [Mass/Vol] 7.4 g/dL [facility] Sodium [Moles/Vol] 140 mmol/L [facility] Urea nitrogen [Mass/Vol] 12 mg/dL [facility]BD[facility]/PELVIS WITH CONTR Hugo 08-23-2024 CT ABDOMEN/PELVIS WITH CONTRAST EXAM: CT ABDOMEN/PELVIS WITH CONTRAST TECHNIQUE: Axial CT images were obtained of the abdomen and pelvis with intravenous contrast. Sagittal and coronal reformatted images were also obtained. Dose reduction techniques were achieved by using automated exposure control and/or adjustment of mA and/or kV according to patient size and/or use of iterative reconstruction technique. HISTORY: rlq abd pain with bloody diarrhea COMPARISON: 06/07/2018 FINDINGS: Lower chest: The lower lungs are clear. Liver: Diffuse decreased attenuation of liver suggesting steatosis. Gallbladder: The gallbladder is unremarkable. There is no intra or extrahepatic biliary dilatation. Pancreas: The pancreas is homogeneous without evidence for mass lesion or inflammation. Spleen: The spleen is unremarkable without evidence for mass lesion. Adrenal glands: The adrenal glands are unremarkable Kidneys and bladder: The kidneys are unremarkable with no evidence for mass lesion, hydronephrosis or inflammation. The ureters demonstrate normal caliber. The urinary bladder is unremarkable. GI Tract: Stomach is unremarkable. Visualized small bowel is unremarkable without evidence for obstruction or active inflammation. The appendix is unremarkable.Diverticul a are seen of the colon, more significant involving the distal colon. The visualized large bowel is otherwise unremarkable. Reproductive: Unremarkable Lymph nodes: No retroperitoneal or abdominal lymphadenopathy. Vascular: The aorta is not dilated. Mesenteric, renal and iliac arteries are patent. Peritoneum: No free intraperitoneal air or fluid. No acute inflammation. Abdominal wall: Moderate degenerative endplate change at L5-S1. Thoracic spine stimulator noted. __ IMPRESSION: No acute abdominal pathology. No acute inflammatory process. No obstructing urinary tract stone. No evidence for bowel obstruction. Normal [facility] CT Abdomen and Pelvis W cont rast Silva 08-23-2024 IMPRESSION: No acute abdominal pathology. No acute inflammatory process. No obstructing urinary tract stone. No evidence for bowel obstruction. RADIOLOGY EXAM: CT ABDOMEN/PEL VIS WITH CONTRAST TECHNIQUE: Axial CT images were obtained of the abdomen and pelvis with intravenous contrast. Sagittal and coronal reformatted images were also obtained. Dose reduction techniques were achieved by using automated exposure control and/or adjustment of mA and/or kV according to patient size and/or use of iterative reconstruction technique. HISTORY: rlq abd pain with bloody diarrhea COMPARISON: 06/07/2018 FINDINGS: Lower chest: The lower lungs are clear. Liver: Diffuse decreased attenuation of liver suggesting steatosis. Gallbladder: The gallbladder is unremarkable. There is no intra or extrahepatic biliary dilatation. Pancreas: The pancreas is homogeneous without evidence for mass lesion or inflammation. Spleen: The spleen is unremarkable without evidence for mass lesion. Adrenal glands: The adrenal glands are unremarkable Kidneys and bladder: The kidneys are unremarkable with no evidence for mass lesion, hydronephrosis or inflammation. The ureters demonstrate normal caliber. The urinary bladder is unremarkable. GI Tract: Stomach is unremarkable. Visualized small bowel is unremarkable without evidence for obstruction or active inflammation. The appendix is unremarkable.Diverticul a are seen of the colon, more significant involving the distal colon. The visualized large bowel is otherwise unremarkable. Reproductive: Unremarkable Lymph nodes: No retroperitoneal or abdominal lymphadenopathy. Vascular: The aorta is not dilated. Mesenteric, renal and iliac arteries are patent. Peritoneum: No free intraperitoneal air or fluid. No acute inflammation. Abdominal wall: Moderate degenerative endplate change at L5-S1. Thoracic spine stimulator noted. __ RADIOLOGY Nathan Sharma MD - 08/23/2024 EXAM: CT ABDOMEN/PELVIS WITH CONTRAST TECHNIQUE: Axial CT images were obtained of the abdomen and pelvis with intravenous contrast. Sagittal and coronal reformatted images were also obtained. Dose reduction techniques were achieved by using automated exposure control and/or adjustment of mA and/or kV according to patient size and/or use of iterative reconstruction technique. HISTORY: rlq abd pain with bloody diarrhea COMPARISON: 06/07/2018 FINDINGS: Lower chest: The lower lungs are clear. Liver: Diffuse decreased attenuation of liver suggesting steatosis. Gallbladder: The gallbladder is unremarkable. There is no intra or extrahepatic biliary dilatation. Pancreas: The pancreas is homogeneous without evidence for mass lesion or inflammation. Spleen: The spleen is unremarkable without evidence for mass lesion. Adrenal glands: The adrenal glands are unremarkable Kidneys and bladder: The kidneys are unremarkable with no evidence for mass lesion, hydronephrosis or inflammation. The ureters demonstrate normal caliber. The urinary bladder is unremarkable. GI Tract: Stomach is unremarkable. Visualized small bowel is unremarkable without evidence for obstruction or active inflammation. The appendix is unremarkable.Diverticul a are seen of the colon, more significant involving the distal colon. The visualized large bowel is otherwise unremarkable. Reproductive: Unremarkable Lymph nodes: No retroperitoneal or abdominal lymphadenopathy. Vascular: The aorta is not dilated. Mesenteric, renal and iliac arteries are patent. Peritoneum: No free intraperitoneal air or fluid. No acute inflammation. Abdominal wall: Moderate degenerative endplate change at L5-S1. Thoracic spine stimulator noted. __ IMPRESSION IMPRESSION: No acute abdominal pathology. No acute inflammatory process. No obstructing urinary tract stone. No evidence for bowel obstruction. [facility] Radiology Study observation (narrative) [facility] CT Abdomen and Pelvis W cont rast IVOrdered By: Nathan Sharma on 08-23-2024 [facility] Work Phone: ESRon 08-23-2024 ESR (Bld) [Velocity] 12 mm/h Normal 0-15 [facility] Comment on above: Performed By: #### C REACT, CMPF, MG, ACBC, PT, ESR ####Testing performed at [address] [address] LACTATE, BLOODon 08-23-2024 Lactate [Moles/Vol] 1.1 mmol/L 0.7 - 2. 0 mmol/L [facility] LACTATE,BLOODon 08-23-2024 Lactate [Moles/Vol] 1.1 mmol/L Normal 0.7-2.0 [facility] Comment on above: Performed By: #### L ACTAC ####Testing performed at [address] [address] MAGNESIUMon 08-23-2024 Magnesium [Mass/Vol] 2.1 mg/dL [facility] Magnesium [Mass/Vol] 2.1 mg/dL Normal 1.6-2.3 [facility] Comment on above: Performed By: #### C REACT, CMPF, MG, ACBC, PT, ESR ####Testing performed at [place] [id number] No Panel Informationon 08-23 [facility] PROTIMEon 08-23-2024 INR Coag (PPP) [Relative time] 0.88 {INR} Normal 0.85-1.10 [facility] Comment on above: Result Comment: 2.0-3.0 THERAPEUTIC RANGE 2.5-3.5 MECHANICAL VALVE RANGE Performed By: #### C REACT, CMPF, MG, ACBC, PT, ESR ####Testing performed at [place] [id number] PT Coag (PPP) [Time] 12.0 s Normal 11.8-14.4 [facility] Comment on above: Performed By: #### C REACT, CMPF, MG, ACBC, PT, ESR ####Testing performed at [place] [id number] PROTIME-INRon 08-23-2024 INR Coag (PPP) [Relative time] 0.88 {INR} 0.85 - 1.10 [facility] Comment on above: 2.0-3.0 THERAPEUTIC RANGE 2.5-3.5 MECHANICAL VALVE RANGE PT Coag (PPP) [Time] 12.0 s [facility] SEDIMENTATION RATE, AUTOMATE Don 08-23-2024 ESR (Bld) [Velocity] 12 mm/h [facility] NM HIDA SCANon 08-12-2024 NM HIDA SCAN [address] [address] Patient: AJIT ZHU Phone#: : 1985 Age: 39 Gender: M Pt. Type: Out Account: [id number] Location: 052 Ordering: SERGIO BENNETT Exam Date: 08/12/2024/10:49 Family Phys: Charge Code: [id number] Physician: Aurora Order #: [id number] Dose#: PROCEDURE: HIDA SCAN COMPARISON: None. INDICATIONS: Abdominal pain,nausea TECHNIQUE: Informed consent was obtained. A routine radionuclide hepatobiliary scan was performed after intravenous injection of 8.5 mCi Tc Choletec with sequential acquisitions every 5 minutes for one hour. Then, a repeat hepatobiliary scan with gallbladder ejection fraction analysis was performed after ingestion of 8 oz of Ensure. Biliary imaging was again performed with imaging performed immediately and at 60 minutes, followed by computer quantitative ejection fraction analysis. PHARMACEUTICAL(S): Tc-99m GRACY derivative (see dose listed above). FINDINGS: BILIARY DUCTS: Normal radioisotopic biliary excretion. Ductal activity seen at 15 minute. GALLBLADDER: Normal with no evidence of cystic duct obstruction. Gallbladder activity seen at 15 minutes. INTESTINE: Normal with no evidence of common biliary ductal obstruction. Bowel activity seen at 55 minutes EJECTION FRACTION: 72.8 % at 60 minutes. (Normal EF > 35%). OTHER: Negative. CONCLUSION: 1. Gallbladder ejection fraction 72.8% Dictated by: Anitha Devi MD on 08/12/2024 at 14:00 Approved by: Anitha Devi MD on 08/12/2024 at 14:02 Normal [facility] US RUQ (GB/PANCREAS)on 07-08 US RUQ (GB/PANCREAS) [address] [address] Patient: AJIT ZHU Phone#: : 1985 Age: 39 Gender: M Pt. Type: Out Account: [id number] Location: 052 Ordering: MICK LEUNG Exam Date: 07/08/2024/9:04 Family Phys: Charge Code: [id number] Physician: Aurora Order #: [id number] Dose#: PROCEDURE: RUQ (GB) ULTRASOUND COMPARISON: [facility], CT, ABDOMEN/PELVIS W CON, 07/01/2024, 9:18. INDICATIONS: Elevated liver enzymes FINDINGS: LIVER: Liver is diffusely increased in echogenicity. This is most often secondary to diffuse fatty infiltration though fibrosis may appear similar. Parenchymal changes limit evaluation for focal lesion, none available. BILIARY: Small amount of sludge in the gallbladder. Normal appearing gallbladder and biliary tree. Common bile duct diameter 3 mm. Gallbladder wall measures 0.2 cm in thickness. PANCREAS: Normal. No visible mass, abnormal atrophy, or ductal dilatation. RIGHT KIDNEY: Normal renal parenchymal echogenicity. No hydronephrosis. Shadowing stone in the right kidney measuring 0.5 cm. OTHER: Negative. CONCLUSION: 1. Probable fatty infiltration of the liver 2. Nonobstructing right renal stone DICTATED BY: ANITHA DEVI MD ON 07/08/2024 AT 9:56 APPROVED BY: ANITHA DEVI MD ON 07/08/2024 AT 10:[address] [facility] [address] ABDOMEN/PELVIS Won 2023 CT ABDOMEN/PELVIS [place] [address] Patient: AJIT ZHU Phone#: : 1985 Age: 39 Gender: M Pt. Type: Out Account: [id number] Location: 052 Ordering: MICK LEUNG Exam Date: 07/01/2024/9:18 Family Phys: Charge Code: [id number] Physician: Aurora Order #: [id number] Dose#: [id number] mGy PROCEDURE: CT ABDOMEN/PELVIS WITH CONTRAST COMPARISON: [facility], CT, ABDOMEN/PELVIS W CON, 01/14/2022, 23:57. INDICATIONS: Abdominal tenderness. TECHNIQUE: After obtaining the patient's consent, CT images were created with non-ionic intravenous contrast and oral contrast material. All CT scans at this facility use dose modulation, iterative reconstruction, and/or weight based dosing when appropriate to reduce radiation dose to as low as reasonably achievable. IV CONTRAST: Omnipaque 350,80ml TOTAL DOSE: 20.40 CTDIvol(mGy) FINDINGS: LIVER: Fatty changes of the liver are present. There is no evidence of focal abnormality. BILIARY: Normal. No visible dilatation or calcification. PANCREAS: Normal. No lesion, fluid collection, ductal dilatation, or atrophy. SPLEEN: Normal. No enlargement or focal lesion. KIDNEYS: Normal. No mass, obstruction, or calcification. ADRENALS: Normal. No mass or enlargement. AORTA/VASCULAR: Normal. No aneurysm or dissection. RETROPERITONEUM: Normal. No mass or adenopathy. BOWEL/MESENTERY: Diverticula of the sigmoid colon are present without inflammatory change. Moderate stool is present in the proximal colon. No visible mass, obstruction, or bowel wall thickening. ABDOMINAL WALL: Normal. No mass or hernia. URINARY BLADDER: Normal. No visible focal wall thickening, lesion, or calculus. PELVIC NODES: Normal. No adenopathy. PELVIC ORGANS: Normal. No visible mass. Pelvic organs appropriate for patient age. BONES: Normal. No bony lesion or fracture. LUNG BASES: Normal. No visible pulmonary or pleural disease. OTHER: Negative. Continued Report - Page 2 of 2 Patient: AJIT ZHU Phone#: : [phone] Age: 39 Gender: M Pt. Type: Out Account: [id number] Location: [facility] Ordering: MICK LEUNG Exam Date: 07/01/2024/9:18 Family Phys: Charge Code: 934286 Physician: Aurora Order #: [id number] Dose#: 20.40 mGy CONCLUSION: 1. Diverticulosis. 2. There is no evidence of acute abdominal pelvic abnormality. Dictated by: Octavia Go MD on 07/01/2024 at 11:24 Approved by: Octavia Go MD on 07/01/2024 at 11:26 Normal [facility] CBC + DIFFon 06-18-2024 Baso # 0.02 x10EE3/UL Normal 0.00 - 0.10 [facility] Comment on above: Performed By: #### 2 66242 #### [facility],[address] [place] [address] 68275 Basophils/100 WBC (Bld) 0.2 % Normal 0.0 - 2.0 [facility] Comment on above: Performed By: #### 2 79070 #### [facility],[address] [place] [address] CBC + DIFF Normal [facility] Comment on above: Result Comment: CBC- COMPLETE BLOOD COUNT Performed By: #### 2 59665 #### [facility],[address] [place] [address] EO # 0.15 x10EE3/UL Normal 0.00 - 0.50 [facility] Comment on above: Performed By: #### 2 46089 #### [facility],[address] [place] [address] 51596 Eosinophils/100 WBC (Bld) 1.4 % Normal 0.0 - 7.0 [facility] Comment on above: Performed By: #### 2 29659 #### [facility],[address] [place] [address] Erythrocyte distribution width (RBC) [Ratio] 12.8 % Normal 12.0 - 15.6 [facility] Comment on above: Performed By: #### 2 19380 #### [facility],[address] [place], [place] [id number] Hematocrit (Bld) [Volume fraction] 48.5 % Normal 40.0 - 52.0 [facility] Comment on above: Performed By: #### 2 24640 #### [facility],[address] [place] [address] 13503 Hemoglobin (Bld) [Mass/Vol] 16.8 g/dL Normal 13.0 - 17.5 [facility] Comment on above: Performed By: #### 2 64457 #### [facility],[address] [place], [place] [id number] Lymph # 2.41 x10EE3/UL Normal 0.80 - 2.80 [facility] Comment on above: Performed By: #### 2 41286 #### [facility],[address] [place] [address] 32804 Lymphocytes/100 WBC (Bld) 23.8 % Normal 20.0 - 45.0 [facility] Comment on above: Performed By: #### 2 63423 #### [facility],[address] [place] [address] 32396 MANUAL DIFF N/A Normal [facility] Comment on above: Performed By: #### 2 21926 #### [facility],[address] [place] [address] 45142 MCH (RBC) [Entitic mass] 33 pg Normal 27 - 33 [facility] Comment on above: Performed By: #### 2 06731 #### [facility],[address] [place] [address] MCHC 35 X10 3 Normal 32 - 36 [facility] Comment on above: Performed By: #### 2 83905 #### [facility],[address] [place] [address] 13982 MCV (RBC) [Entitic vol] 96 fL Normal 81 - 98 [facility] Comment on above: Performed By: #### 2 24160 #### [facility],[address] [place] [address] 11551 [place] # 0.73 x10EE3/UL Normal 0.20 - 1.00 [facility] Comment on above: Performed By: #### 2 75343 #### [facility],[address] [place] [address] 66042 MONOS % 7.2 % Normal 0.0 - 10.0 [facility] Comment on above: Performed By: #### 2 56681 #### [facility],[address] [place] [address] 69347 Morphology Caesar (Bld) [Interp] N/A Normal [facility] Comment on above: Performed By: #### 2 42381 #### [facility],[address] [place] [address] 25039 Neut # 6.81 x10EE3/UL Normal 1.50 - 7.10 [facility] Comment on above: Performed By: #### 2 21091 #### [facility],[address] [place] [address] 99305 Neutrophils/100 WBC (Bld) 67.4 % Normal 46.0 - 76.0 [facility] Comment on above: Performed By: #### 2 66483 #### [facility],[address] [place] [address] 50934 PLATELET 196 x10EE3/UL Normal 150 - 450 [facility] Comment on above: Performed By: #### 2 66806 #### [facility],[address] [place] [address] 59764 Platelet mean volume (Bld) [Entitic vol] 9.6 fL Normal 6.4 - 10.5 [facility] Comment on above: Result Comment: AUTO MATED DIFFERENTIAL Performed By: #### 2 97293 #### [facility],[address] [place] [address] 33218 RBC 5.08 x 10EE6/UL Normal 4.50 - 6.00 [facility] Comment on above: Performed By: #### 2 42505 #### [facility],[address] [place] [address] 87270 WBC 10.1 x 10EE3/UL Normal 4.5 - 10.8 [facility] Comment on above: Performed By: #### 2 52083 #### [facility],[address] [place] [address] 00891 CMP with eGFRon 06-18-2024 AGE 39 years Normal [facility] Comment on above: Performed By: #### 2 83326 #### [facility],[address] [place] [address] 28382 Albumin [Mass/Vol] 3.6 g/dL Normal 3.4 - 5.0 [facility] Comment on above: Performed By: #### 2 28401 #### [facility],[address] [place] [address] 80127 Albumin/Globulin [Mass ratio] 1.0 {ratio} Normal 0.9 - 1.6 [facility] Comment on above: Performed By: #### 2 48348 #### [facility],[address] [place] [address] 68438 ALK PHOS 127 U/L High 46 - 116 [facility] Comment on above: Performed By: #### 2 35349 #### [facility],[address] [place] [address] 16817 ALT [Catalytic activity/Vol] 72 U/L High 16 - 63 [facility] Comment on above: Performed By: #### 2 77085 #### [facility],[address] [place] [address] 59028 Anion gap [Moles/Vol] 14 mmol/L Normal 10 - 20 [facility] Comment on above: Performed By: #### 2 03261 #### [facility],[address] [place] [address] 21853 AST [Catalytic activity/Vol] 47 U/L High 15 - 37 [facility] Comment on above: Performed By: #### 2 52210 #### [facility],[address] [place] [address] 11751 B/C RATIO 9 ratio Normal 0 - 30 [facility] Comment on above: Performed By: #### 2 90735 #### [facility],[address] [place] [address] 22273 Bilirubin [Mass/Vol] 0.3 mg/dL Normal 0.2 - 1.0 [facility] Comment on above: Performed By: #### 2 08308 #### [facility],[address] [place] [address] 51280 Calcium [Mass/Vol] 9.2 mg/dL Normal 8.5 - 10.1 [facility] Comment on above: Performed By: #### 2 90584 #### [facility],[address] [place], [place] [id number] Chloride [Moles/Vol] 105 mmol/L Normal 98 - 107 [facility] Comment on above: Performed By: #### 2 42548 #### [facility],[address] [place], [place] [id number] CMP with eGFR Normal [facility] Comment on above: Result Comment: COMP REHENSIVE METABOLIC PANEL Performed By: #### 2 72172 #### [place] [address] CO2 [Moles/Vol] 24.6 mmol/L Normal 21.0 - 32.0 [facility] Comment on above: Performed By: #### 2 52040 #### [place] [address] Creatinine [Mass/Vol] 1.01 mg/dL Normal 0.70 - 1.30 [facility] Comment on above: Performed By: #### 2 28950 #### [place] [address] GFR/1.73 sq M.predicted among non-blacks MDRD (S/P/Bld) [Vol rate/Area] mL/min/{1.73_m2} Normal 60 - 999 [facility] Comment on above: Performed By: #### 2 11734 #### [place] [address] Result Comment: ACCO RDING TO THE NATIONAL KIDNEY DISEASE EDUCATION PROGRAM(NKDE), A NORMAL eGFR IS A VALUE GREATER THAN OR EQUAL TO 60 ML/MIN/1.73 SQ METERS. CHRONIC KIDNEY DISEASE: <60mL/MIN/1.73 SQ METERS KIDNEY FAILURE: <15mL/MIN/1.73 SQ METERS THIS TEST SHOULD ONLY BE USED FOR PATIENTS 18 YEARS OF AGE AND OLDER. Globulin (S) [Mass/Vol] 3.6 g/dL Normal 1.5 - 3.8 [facility] Comment on above: Performed By: #### 2 54457 #### [facility],[address] [place] [address] 21730 Glucose [Mass/Vol] 103 mg/dL Normal 74 - 106 [facility] Comment on above: Performed By: #### 2 24613 #### [facility],[address] [place] [address] 34220 Potassium [Moles/Vol] 4.0 mmol/L Normal 3.5 - 5.1 [facility] Comment on above: Performed By: #### 2 68668 #### [facility],[address] [place] [address] 68811 Protein [Mass/Vol] 7.2 g/dL Normal 6.4 - 8.2 [facility] Comment on above: Performed By: #### 2 19420 #### [facility],[address] [place] [address] 97909 Sodium [Moles/Vol] 140 mmol/L Normal 136 - 145 [facility] Comment on above: Performed By: #### 2 48480 #### [facility],[address] [place] [address] 41346 Urea nitrogen [Mass/Vol] 9 mg/dL Normal 7 - 18 [facility] Comment on above: Performed By: #### 2 76429 #### [facility],[address] [place] [address] 27676 LIPID PROFILEon 06-18-2024 Cholesterol [Mass/Vol] 203 mg/dL Normal 0 - 240 [facility] Comment on above: Performed By: #### 2 86813 #### [facility],[address] [place] [address] 63693 Cholesterol in HDL [Mass/Vol] 39 mg/dL Low 40 - 60 [facility] Comment on above: Performed By: #### 2 66024 #### [facility],[address] [place] [address] 72763 Cholesterol in LDL [Mass/Vol] 99 mg/dL Normal 0 - 129 [facility] Comment on above: Performed By: #### 2 68439 #### [facility],[address] [place] [address] 42709 Cholesterol.total/Cho lesterol in HDL [Mass ratio] 5.2 {ratio} High 0.0 - 5.0 [facility] Comment on above: Performed By: #### 2 24349 #### [facility],[address] [place] [address] 42014 Lipid 1996 panel Normal [facility] Comment on above: Result Comment: LIPI D PROFILE Performed By: #### 2 71958 #### [facility],[address] [place] [address] 98750 Triglyceride [Mass/Vol] 327 mg/dL High 0 - 150 [facility] Comment on above: Performed By: #### 2 29886 #### [facility],[address] [place] [address] 78305 .Auto Diffon 02-14-2024 Basophil, Absolute 0.0 10 3/mcL Normal 0.0-0.3 [facility] ([place]) Comment on above: Performed By: #### A EDUARDO, PRO, GFR, CMP, CBC, ADIFF #### [address] [address] Basophils/100 WBC (Bld) 0.6 % Normal 0.0-2.5 [facility] ([place]) Comment on above: Performed By: #### A EDUARDO, PRO, GFR, CMP, CBC, ADIFF #### [address] [address] Eosinophil, Absolute 0.2 10 3/mcL Normal 0.0-0.7 [facility] ([place]) Comment on above: Performed By: #### A EDUARDO, PRO, GFR, CMP, CBC, ADIFF #### [address] [address] Eosinophils/100 WBC (Bld) 3.0 % Normal 0.0-6.0 [facility] ([place] Comment on above: Performed By: #### A EDUARDO, PRO, GFR, CMP, CBC, ADIFF #### [address] [address] Lymphocyte, Absolute 2.4 10 3/mcL Normal 0.9-4.3 [facility] ([place] Comment on above: Performed By: #### A EDUARDO, PRO, GFR, CMP, CBC, ADIFF #### [address] [address] Lymphocytes/100 WBC (Bld) 32.5 % Normal 20.0-40.0 [facility] ([place] Comment on above: Performed By: #### A EDUARDO, PRO, GFR, CMP, CBC, ADIFF #### [address] [address] Monocyte, Absolute 0.6 10 3/mcL Normal 0.1-1.4 [facility] ([place] Comment on above: Performed By: #### A EDUARDO, PRO, GFR, CMP, CBC, ADIFF #### [address] [address] Monocytes/100 WBC (Bld) 8.7 % Normal 2.0-13.0 [facility] ([place] Comment on above: Performed By: #### A EDUARDO, PRO, GFR, CMP, CBC, ADIFF #### [address] [address] Neutrophils/100 WBC (Bld) 55.2 % Normal 50.0-75.0 [facility] ([place] Comment on above: Performed By: #### A EDUARDO, PRO, GFR, CMP, CBC, ADIFF #### [address] [address] .GFRon 02-14-2024 GFR >60 Normal [facility] ([place]) Comment on above: Result Comment: GFR Population mean for , Non- Americans Ages 20-29 = 116 mL/min/1.73 sq.m. Ages 30-39 = 107 mL/min/1.73 sq.m. Ages 40-49 = 99 mL/min/1.73 sq.m. Ages 50-59 = 93 mL/min/1.73 sq.m. Ages 60-69 = 85 mL/min/1.73 sq.m. Ages 70+ = 75 mL/min/1.73 sq.m. Chronic Kidney Disease: Less than 60 mL/min/1.73 square meters End Stage Renal Disease: Less than 15 mL/min/1.73 square meters Performed By: #### A EDUARDO, PRO, GFR, CMP, CBC, ADIFF #### [address] [address] GFR Non- >60 Normal [facility] ([place] Comment on above: Result Comment: GFR Population mean for , Non- Americans Ages 20-29 = 116 mL/min/1.73 sq.m. Ages 30-39 = 107 mL/min/1.73 sq.m. Ages 40-49 = 99 mL/min/1.73 sq.m. Ages 50-59 = 93 mL/min/1.73 sq.m. Ages 60-69 = 85 mL/min/1.73 sq.m. Ages 70+ = 75 mL/min/1.73 sq.m. Chronic Kidney Disease: Less than 60 mL/min/1.73 square meters End Stage Renal Disease: Less than 15 mL/min/1.73 square meters Performed By: #### A EDUARDO, PRO, GFR, CMP, CBC, ADIFF #### [address] [address] .NEUABSon 02-14-2024 Neutrophil, Absolute 4.1 10 3/mcL Normal 2.3-8.1 [facility] ([place]) Comment on above: Performed By: #### A EDUARDO, PRO, GFR, CMP, CBC, ADIFF #### [address] [address] BMPon 02-14-2024 BUN/Creatinine Ratio 12.3 ratio Normal 10.0-22.0 [facility] ([place]) Comment on above: Performed By: #### C VFLURV #### [address] [address] Calcium [Mass/Vol] 9.4 mg/dL Normal 8.7-10.4 [facility] ([place]) Comment on above: Performed By: #### C VFLURV #### [address] [address] Chloride [Moles/Vol] 111 mmol/L High 98-110 [facility] ([place] Comment on above: Performed By: #### C VFLURV #### [address] [address] CO2 [Moles/Vol] 23 mmol/L Normal 22-32 [facility] ([place] Comment on above: Performed By: #### C VFLURV #### [address] [address] Creatinine [Mass/Vol] 0.81 mg/dL Normal 0.60-1.40 [facility] ([place]) Comment on above: Performed By: #### C VFLURV #### [address] [address] Electrolyte Balance 7.0 mEq/L Normal 4.0-15.0 [facility] ([place]) Comment on above: Performed By: #### C VFLURV #### [address] [address] Glucose [Mass/Vol] 114 mg/dL High 70-110 [facility] ([place]) Comment on above: Performed By: #### C VFLURV #### [address] [address] Potassium [Moles/Vol] 4.0 mmol/L Normal 3.5-5.0 [facility] ([place]) Comment on above: Performed By: #### C VFLURV #### [address] [address] Sodium [Moles/Vol] 141 mmol/L Normal 136-145 [facility] ([place] Comment on above: Performed By: #### C VFLURV #### [address] [address] Urea nitrogen [Mass/Vol] 10.0 mg/dL Normal 8.0-22.0 [facility] ([place] Comment on above: Performed By: #### C VFLURV #### [place] [address] CBCon 02-14-2024 Erythrocyte distribution width (RBC) [Ratio] 13.4 % Normal 11.5-15.5 [facility] ([place] Comment on above: Performed By: #### A EDUARDO, PRO, GFR, CMP, CBC, ADIFF #### [place] [address] Hematocrit (Bld) [Volume fraction] 43.4 % Normal 40.0-52.0 [facility] ([place] Comment on above: Performed By: #### A EDUARDO, PRO, GFR, CMP, CBC, ADIFF #### [place] [address] Hgb 14.9 G/dL Normal 13.0-17.5 [facility] ([place] Comment on above: Performed By: #### A EDUARDO, PRO, GFR, CMP, CBC, ADIFF #### [place] [address] MCH (RBC) [Entitic mass] 33.1 pg High 27.0-33.0 [facility] ([place] Comment on above: Performed By: #### A EDUARDO, PRO, GFR, CMP, CBC, ADIFF #### [place] [address] MCHC 34.4 G/dL Normal 32.0-36.0 [facility] ([place] Comment on above: Performed By: #### A EDUARDO, PRO, GFR, CMP, CBC, ADIFF #### [place] [address] MCV (RBC) [Entitic vol] 96.2 fL Normal 81.0-100.0 [facility] ([place] Comment on above: Performed By: #### A EDUARDO, PRO, GFR, CMP, CBC, ADIFF #### [place] [address] Platelet 193 10 3/mcL Normal 150-450 [facility] ([place] Comment on above: Performed By: #### A EDUARDO, PRO, GFR, CMP, CBC, ADIFF #### [facility] [address] [place], [place] [address] Platelet mean volume (Bld) [Entitic vol] 10.2 fL Normal 6.4-10.5 [facility] ([place] Comment on above: Performed By: #### A EDUARDO, PRO, GFR, CMP, CBC, ADIFF #### [facility] [address] [place] [address]71 RBC 4.52 10 6/mcL Normal 4.50-6.00 [facility] ([place] Comment on above: Performed By: #### A EDUARDO, PRO, GFR, CMP, CBC, ADIFF #### [facility] [address] [place] [address]703 WBC 7.3 10 3/mcL Normal 4.5-10.8 [facility] ([place] Comment on above: Performed By: #### A EDUARDO, PRO, GFR, CMP, CBC, ADIFF #### [place] [address] [place] [address] LABORATORYOrdered By: SYSTEM SYSTEM on 02-14-2024 Basophils (Bld) [#/Vol] 0.0 103/mcL Normal 0.0 - 0.3 10^3/mcL Workflow SS Basophils/100 WBC (Bld) 0.6 % Normal 0.0 - 2.5 % Workflow SS Calcium [Mass/Vol] 9.4 mg/dL Normal 8.7 - 10. 4 mg/dL ADM SS Chloride [Moles/Vol] 111 mmol/L High 98 - 110 mEq/L ADM SS CO2 [Moles/Vol] 23 mmol/L Normal 22 - 32 mEq/L ADM SS Creatinine [Mass/Vol] 0.81 mg/dL Normal 0.60 - 1.40 mg/dL ADM SS Electrolyte Balance 7.0 mEq/L Normal 4.0 - 15 .0 mEq/L ADM SS Eosinophils (Bld) [#/Vol] 0.2 103/mcL Normal 0.0 - 0.7 10^3/mcL AH Workflow SS Eosinophils/100 WBC (Bld) 3.0 % Normal 0.0 - 6.0 % Workflow SS Erythrocyte distribution width (RBC) [Ratio] 13.4 % Normal 11.5 - 15.5 % Workflow SS GFR/1.73 sq M.predicted among blacks MDRD (S/P/Bld) [Vol rate/Area] ml/min/1.73sqm Invalid Interpretation Code sofatutor Chemistry S Comment on above: Interpretive Data: GFR Population mean for , Non- Americans Ages 20-29 = 116 mL/min/1.73 sq.m. Ages 30-39 = 107 mL/min/1.73 sq.m. Ages 40-49 = 99 mL/min/1.73 sq.m. Ages 50-59 = 93 mL/min/1.73 sq.m. Ages 60-69 = 85 mL/min/1.73 sq.m. Ages 70+ = 75 mL/min/1.73 sq.m. Chronic Kidney Disease: Less than 60 mL/min/1.73 square meters End Stage Renal Disease: Less than 15 mL/min/1.73 square meters GFR/1.73 sq M.predicted among non-blacks MDRD (S/P/Bld) [Vol rate/Area] ml/min/1.73sqm Invalid Interpretation Code sofatutor Chemistry S Comment on above: Interpretive Data: GFR Population mean for , Non- Americans Ages 20-29 = 116 mL/min/1.73 sq.m. Ages 30-39 = 107 mL/min/1.73 sq.m. Ages 40-49 = 99 mL/min/1.73 sq.m. Ages 50-59 = 93 mL/min/1.73 sq.m. Ages 60-69 = 85 mL/min/1.73 sq.m. Ages 70+ = 75 mL/min/1.73 sq.m. Chronic Kidney Disease: Less than 60 mL/min/1.73 square meters End Stage Renal Disease: Less than 15 mL/min/1.73 square meters Glucose [Mass/Vol] 114 mg/dL High 70 - 110 mg/dL ADM SS Hematocrit (Bld) [Volume fraction] 43.4 % Normal 40.0 - 52.0 % Workflow SS Hemoglobin (Bld) [Mass/Vol] 14.9 G/dL Normal 13.0 - 17.5 G/dL Workflow SS Lymphocytes (Bld) [#/Vol] 2.4 103/mcL Normal 0.9 - 4.3 10^3/mcL Workflow SS Lymphocytes/100 WBC (Bld) 32.5 % Normal 20.0 - 40.0 % AH Workflow SS MCH (RBC) [Entitic mass] 33.1 pg High 27.0 - 33.0 pg AH Workflow SS MCHC 34.4 G/dL Normal 32.0 - 36.0 G/dL AH Workflow SS MCV (RBC) [Entitic vol] 96.2 fL Normal 81.0 - 100.0 fL AH Workflow SS Monocytes (Bld) [#/Vol] 0.6 103/mcL Normal 0.1 - 1.4 10^3/mcL AH Workflow SS Monocytes/100 WBC (Bld) 8.7 % Normal 2.0 - 13.0 % AH Workflow SS Neutrophils (Bld) [#/Vol] 4.1 103/mcL Normal 2.3 - 8.1 10^3/mcL Workflow SS Neutrophils/100 WBC (Bld) 55.2 % Normal 50.0 - 75.0 % AH Workflow SS Platelet mean volume (Bld) [Entitic vol] 10.2 fL Normal 6.4 - 10.5 fL Workflow SS Platelets (Bld) [#/Vol] 193 103/mcL Normal 150 - 450 10^3/mcL Workflow SS Potassium [Moles/Vol] 4.0 mmol/L Normal 3.5 - 5.0 mEq/L ADM SS RBC (Bld) [#/Vol] 4.52 106/mcL Normal 4.50 - 6.0 0 10^6/mcL AH Workflow SS Sodium [Moles/Vol] 141 mmol/L Normal 136 - 145 mEq/L ADM SS Urea nitrogen [Mass/Vol] 10.0 mg/dL Normal 8.0 - 22.0 mg/dL ADM SS Urea nitrogen/Creatinine [Mass ratio] 12.3 ratio Normal 10.0 - 22.0 ratio ADM SS WBC (Bld) [#/Vol] 7.3 103/mcL Normal 4.5 - 10.8 10^3/mcL Workflow SS XR FLUORO < 1HR TECH TIMEon 02-14-2024 XR FLUORO < 1HR TECH TIME ORIGINAL EXAMINATION: SPOT FLUOROSCOPIC IMAGES02/14/2024 9:28 am Intraoperative fluoroscopy and image intensifier views of the thoracolumbar spine COMPARISON: None HISTORY: ORDERING SYSTEM PROVIDED HISTORY: Reason for Exam: PAIN, , intraoperative imaging FINDINGS/IMPRESSION: Fluoroscopic time: 48.7 seconds Total dose (Reference Air Kerma): 58.921 MGy Number of fluoroscopic images: 7 Detail is limited. Please see intraoperative notes for additional details of the procedure. Interpreted by: Kike Chen MD Preliminary Report By: Kike Chen MD Electronically signed By Kike Chen MD Dictated Date: 02/14/2024 9:52:25 AM Prelim Date: 02/14/2024 9:53:11 AM Sign Date: 02/14/2024 9:53:11 AM Ordering Provider: MIGUEL CHA [facility] ([place]) XR FLUORO < 1HR TECH TIMEon 01-16-2024 XR FLUORO < 1HR TECH TIME ORIGINAL EXAMINATION: SPOT FLUOROSCOPIC IMAGES01/16/2024 11:10 am COMPARISON: None. HISTORY: ORDERING SYSTEM PROVIDED HISTORY: Reason for Exam: PHASE I NEUROSTIM FLUOROSCOPY TIME: 28.5 seconds. Total dose: 22.87 mGy. IMPRESSION: As above. Interpreted by: Alessandro Capellan Preliminary Report By: Alessandro Capellan Electronically signed By Alessandro Capellan Dictated Date: 01/16/2024 11:14:51 AM Prelim Date: 01/16/2024 11:15:23 AM Sign Date: 01/16/2024 11:15:23 AM Ordering Provider: MIGUEL Brito [facility] ([place]) .Auto Diffon 01-13-2024 Basophil, Absolute 0.0 10 3/mcL Normal 0.0-0.3 [facility]) Comment on above: Performed By: #### A EDUARDO, PRO, GFR, CMP, CBC, ADIFF #### [address] [address] Basophils/100 WBC (Bld) 0.5 % Normal 0.0-2.5 [facility] ([place]) Comment on above: Performed By: #### A EDUARDO, PRO, GFR, CMP, CBC, ADIFF #### [address] [address] Eosinophil, Absolute 0.2 10 3/mcL Normal 0.0-0.7 [facility] ([place]) Comment on above: Performed By: #### A EDUARDO, PRO, GFR, CMP, CBC, ADIFF #### [address] [address] Eosinophils/100 WBC (Bld) 1.8 % Normal 0.0-6.0 [facility] ([place] Comment on above: Performed By: #### A EDUARDO, PRO, GFR, CMP, CBC, ADIFF #### [address] [address] Lymphocyte, Absolute 2.4 10 3/mcL Normal 0.9-4.3 [facility] ([place]) Comment on above: Performed By: #### A EDUARDO, PRO, GFR, CMP, CBC, ADIFF #### [address] [address] Lymphocytes/100 WBC (Bld) 24.4 % Normal 20.0-40.0 [facility] ([place] Comment on above: Performed By: #### A EDUARDO, PRO, GFR, CMP, CBC, ADIFF #### [address] [address] Monocyte, Absolute 0.6 10 3/mcL Normal 0.1-1.4 [facility] ([place]) Comment on above: Performed By: #### A EDUARDO, PRO, GFR, CMP, CBC, ADIFF #### [address] [address] Monocytes/100 WBC (Bld) 5.7 % Normal 2.0-13.0 [facility] ([place] Comment on above: Performed By: #### A EDUARDO, PRO, GFR, CMP, CBC, ADIFF #### [address] [address] Neutrophils/100 WBC (Bld) 67.6 % Normal 50.0-75.0 [facility] ([place] Comment on above: Performed By: #### A EDUARDO, PRO, GFR, CMP, CBC, ADIFF #### [address] [address] .GFRon 01-13-2024 GFR >60 Normal [facility] ([place]) Comment on above: Result Comment: GFR Population mean for , Non- Americans Ages 20-29 = 116 mL/min/1.73 sq.m. Ages 30-39 = 107 mL/min/1.73 sq.m. Ages 40-49 = 99 mL/min/1.73 sq.m. Ages 50-59 = 93 mL/min/1.73 sq.m. Ages 60-69 = 85 mL/min/1.73 sq.m. Ages 70+ = 75 mL/min/1.73 sq.m. Chronic Kidney Disease: Less than 60 mL/min/1.73 square meters End Stage Renal Disease: Less than 15 mL/min/1.73 square meters Performed By: #### A EDUARDO, PRO, GFR, CMP, CBC, ADIFF #### [address] [address] GFR Non- >60 Normal [facility] ([place] Comment on above: Result Comment: GFR Population mean for , Non- Americans Ages 20-29 = 116 mL/min/1.73 sq.m. Ages 30-39 = 107 mL/min/1.73 sq.m. Ages 40-49 = 99 mL/min/1.73 sq.m. Ages 50-59 = 93 mL/min/1.73 sq.m. Ages 60-69 = 85 mL/min/1.73 sq.m. Ages 70+ = 75 mL/min/1.73 sq.m. Chronic Kidney Disease: Less than 60 mL/min/1.73 square meters End Stage Renal Disease: Less than 15 mL/min/1.73 square meters Performed By: #### A EDUARDO, PRO, GFR, CMP, CBC, ADIFF #### [address] [address] .NEUABSon 01-13-2024 Neutrophil, Absolute 6.7 10 3/mcL Normal 2.3-8.1 [facility] ([place]) Comment on above: Performed By: #### A EDUARDO, PRO, GFR, CMP, CBC, ADIFF #### [address] [address] APTTon 01-13-2024 aPTT Coag (Bld) [Time] 35.8 s High 25.0-35.0 [facility] ([place]) Comment on above: Result Comment: For Heparin anticoagulation therapy, the recommended therapeutic range is: 54-77 seconds (APTT Correlation with Anti-Xa therapeutic range of 0.3-0.7 units/ml). PLEASE REFERENCE THE PHARMACY PROTOCOL FOR DOSING. Performed By: #### A EDUARDO, PRO, GFR, CMP, CBC, ADIFF #### [place] [id number] Heparin dose (APTT) None Normal [facility] ([place] Comment on above: Performed By: #### A EDUARDO, PRO, GFR, CMP, CBC, ADIFF #### [place] [id number] CBCon 01-13-2024 Erythrocyte distribution width (RBC) [Ratio] 13.0 % Normal 11.5-15.5 [facility] ([place]) Comment on above: Performed By: #### A EDUARDO, PRO, GFR, CMP, CBC, ADIFF #### [place] [address] Hematocrit (Bld) [Volume fraction] 48.1 % Normal 40.0-52.0 [facility] ([place]) Comment on above: Performed By: #### A EDUARDO, PRO, GFR, CMP, CBC, ADIFF #### [place] [address] Hgb 16.4 G/dL Normal 13.0-17.5 [facility] ([place]) Comment on above: Performed By: #### A EDUARDO, PRO, GFR, CMP, CBC, ADIFF #### [place] [phone] MCH (RBC) [Entitic mass] 32.9 pg Normal 27.0-33.0 [facility] ([place] Comment on above: Performed By: #### A EDUARDO, PRO, GFR, CMP, CBC, ADIFF #### [place] [id number] MCHC 34.2 G/dL Normal 32.0-36.0 [facility] ([place]) Comment on above: Performed By: #### A EDUARDO, PRO, GFR, CMP, CBC, ADIFF #### [place] [address] MCV (RBC) [Entitic vol] 96.3 fL Normal 81.0-100.0 [facility] ([place]) Comment on above: Performed By: #### A EDUARDO, PRO, GFR, CMP, CBC, ADIFF #### [address] [address] Platelet 187 10 3/mcL Normal 150-450 [facility] ([place]) Comment on above: Performed By: #### A EDUARDO, PRO, GFR, CMP, CBC, ADIFF #### [address] [address] Platelet mean volume (Bld) [Entitic vol] 10.6 fL High 6.4-10.5 [facility] ([place]) Comment on above: Performed By: #### A EDUARDO, PRO, GFR, CMP, CBC, ADIFF #### [address] [address] RBC 4.99 10 6/mcL Normal 4.50-6.00 [facility] ([place]) Comment on above: Performed By: #### A EDUARDO, PRO, GFR, CMP, CBC, ADIFF #### [place] [phone] WBC 9.9 10 3/mcL Normal 4.5-10.8 [facility] ([place]) Comment on above: Performed By: #### A EDUARDO, PRO, GFR, CMP, CBC, ADIFF #### [address] [address] CMPon 01-13-2024 Albumin Level 3.6 G/dL Normal 3.2-4.8 [facility] ([place]) Comment on above: Performed By: #### A EDUARDO, PRO, GFR, CMP, CBC, ADIFF #### [address] [address] Albumin/Globulin [Mass ratio] 1.1 {ratio} Normal 0.9-1.6 [facility] ([place]) Comment on above: Performed By: #### A EDUARDO, PRO, GFR, CMP, CBC, ADIFF #### [address] [address] ALP [Catalytic activity/Vol] 111 U/L Normal 38-126 [facility] ([place]) Comment on above: Performed By: #### A EDUARDO, PRO, GFR, CMP, CBC, ADIFF #### [address] [address] ALT [Catalytic activity/Vol] 49 U/L Normal 12-55 [facility] ([place]) Comment on above: Performed By: #### A EDUARDO, PRO, GFR, CMP, CBC, ADIFF #### [address] [address] AST [Catalytic activity/Vol] 30 U/L Normal 8-34 [facility] ([place]) Comment on above: Performed By: #### A EDUARDO, PRO, GFR, CMP, CBC, ADIFF #### [address] [address] Bili Total 0.30 mg/dL Normal 0.20-1.20 [facility] ([place]) Comment on above: Result Comment: Use of this assay is not recommended for patients undergoing treatment with eltrombopag due to the potential for falsely elevated results. Performed By: #### A EDUARDO, PRO, GFR, CMP, CBC, ADIFF #### [place] [phone] BUN/Creatinine Ratio 14.3 ratio Normal 10.0-22.0 [facility] ([place]) Comment on above: Performed By: #### A EDUARDO, PRO, GFR, CMP, CBC, ADIFF #### [address] [address] Calcium [Mass/Vol] 9.4 mg/dL Normal 8.7-10.4 [facility] ([place]) Comment on above: Performed By: #### A EDUARDO, PRO, GFR, CMP, CBC, ADIFF #### [address] [address] Chloride [Moles/Vol] 109 mmol/L Normal 98-110 [facility] ([place]) Comment on above: Performed By: #### A EDUARDO, PRO, GFR, CMP, CBC, ADIFF #### [address] [address] CO2 [Moles/Vol] 24 mmol/L Normal 22-32 [facility] ([place]) Comment on above: Performed By: #### A EDUARDO, PRO, GFR, CMP, CBC, ADIFF #### [address] [address] Creatinine [Mass/Vol] 0.84 mg/dL Normal 0.60-1.40 [facility] ([place]) Comment on above: Performed By: #### A EDUARDO, PRO, GFR, CMP, CBC, ADIFF #### [place] [phone] Electrolyte Balance 6.0 mEq/L Normal 4.0-15.0 [facility] ([place]) Comment on above: Performed By: #### A EDUARDO, PRO, GFR, CMP, CBC, ADIFF #### [place] [phone] Globulin 3.3 G/dL Normal 1.5-3.8 [facility] ([place]) Comment on above: Performed By: #### A EDUARDO, PRO, GFR, CMP, CBC, ADIFF #### [place] [phone] Glucose [Mass/Vol] 131 mg/dL High 70-110 [facility] ([place]) Comment on above: Performed By: #### A EDUARDO, PRO, GFR, CMP, CBC, ADIFF #### [place] [phone] Potassium [Moles/Vol] 4.2 mmol/L Normal 3.5-5.0 [facility] ([place]) Comment on above: Performed By: #### A EDUARDO, PRO, GFR, CMP, CBC, ADIFF #### [address] [address] Sodium [Moles/Vol] 139 mmol/L Normal 136-145 [facility] ([place]) Comment on above: Performed By: #### A EDUARDO, PRO, GFR, CMP, CBC, ADIFF #### [place] [phone] Total Protein 6.9 G/dL Normal 5.7-8.2 [facility] ([place]) Comment on above: Result Comment: No te - New Reference Range in effect 20 Performed By: #### A EDUARDO, PRO, GFR, CMP, CBC, ADIFF #### [facility] [address] [place] [address] Urea nitrogen [Mass/Vol] 12.0 mg/dL Normal 8.0-22.0 [facility] ([place]) Comment on above: Performed By: #### A EDUARDO, PRO, GFR, CMP, CBC, ADIFF #### [facility] [address] [place] [address] LABORATORYOrdered By: SYSTEM SYSTEM on 01-13-2024 Albumin BCP dye [Mass/Vol] 3.6 G/dL Normal 3.2 - 4.8 G/dL ADM SS Albumin/Globulin [Mass ratio] 1.1 {ratio} Normal 0.9 - 1.6 ratio AH ADM SS ALP [Catalytic activity/Vol] 111 U/L Normal 38 - 126 U/L ADM SS ALT No additional P-5'-P [Catalytic activity/Vol] 49 U/L Normal 12 - 55 U/L ADM SS AST [Catalytic activity/Vol] 30 U/L Normal 8 - 34 U/L ADM SS Basophils (Bld) [#/Vol] 0.0 103/mcL Normal 0.0 - 0.3 10^3/mcL Workflow SS Basophils/100 WBC (Bld) 0.5 % Normal 0.0 - 2.5 % Workflow SS Bilirubin [Mass/Vol] 0.30 mg/dL Normal 0.20 - 1.20 mg/dL ADM SS Comment on above: Interpretive Data: U se of this assay is not recommended for patients undergoing treatment with eltrombopag due to the potential for falsely elevated results. Calcium [Mass/Vol] 9.4 mg/dL Normal 8.7 - 10. 4 mg/dL AH ADM SS Chloride [Moles/Vol] 109 mmol/L Normal 98 - 110 mEq/L AH ADM SS CO2 [Moles/Vol] 24 mmol/L Normal 22 - 32 mEq/L AH ADM SS Creatinine [Mass/Vol] 0.84 mg/dL Normal 0.60 - 1.40 mg/dL ADM SS Electrolyte Balance 6.0 mEq/L Normal 4.0 - 15 .0 mEq/L ADM SS Eosinophils (Bld) [#/Vol] 0.2 103/mcL Normal 0.0 - 0.7 10^3/mcL AH Workflow SS Eosinophils/100 WBC (Bld) 1.8 % Normal 0.0 - 6.0 % Workflow SS Erythrocyte distribution width (RBC) [Ratio] 13.0 % Normal 11.5 - 15.5 % Workflow SS GFR/1.73 sq M.predicted among blacks MDRD (S/P/Bld) [Vol rate/Area] ml/min/1.73sqm Invalid Interpretation Code sofatutor Chemistry S Comment on above: Interpretive Data: GFR Population mean for , Non- Americans Ages 20-29 = 116 mL/min/1.73 sq.m. Ages 30-39 = 107 mL/min/1.73 sq.m. Ages 40-49 = 99 mL/min/1.73 sq.m. Ages 50-59 = 93 mL/min/1.73 sq.m. Ages 60-69 = 85 mL/min/1.73 sq.m. Ages 70+ = 75 mL/min/1.73 sq.m. Chronic Kidney Disease: Less than 60 mL/min/1.73 square meters End Stage Renal Disease: Less than 15 mL/min/1.73 square meters GFR/1.73 sq M.predicted among non-blacks MDRD (S/P/Bld) [Vol rate/Area] ml/min/1.73sqm Invalid Interpretation Code sofatutor Chemistry S Comment on above: Interpretive Data: GFR Population mean for , Non- Americans Ages 20-29 = 116 mL/min/1.73 sq.m. Ages 30-39 = 107 mL/min/1.73 sq.m. Ages 40-49 = 99 mL/min/1.73 sq.m. Ages 50-59 = 93 mL/min/1.73 sq.m. Ages 60-69 = 85 mL/min/1.73 sq.m. Ages 70+ = 75 mL/min/1.73 sq.m. Chronic Kidney Disease: Less than 60 mL/min/1.73 square meters End Stage Renal Disease: Less than 15 mL/min/1.73 square meters Globulin 3.3 G/dL Normal 1.5 - 3.8 G/dL ADM SS Glucose [Mass/Vol] 131 mg/dL High 70 - 110 mg/dL ADM SS Hematocrit (Bld) [Volume fraction] 48.1 % Normal 40.0 - 52.0 % AH Workflow SS Hemoglobin (Bld) [Mass/Vol] 16.4 G/dL Normal 13.0 - 17.5 G/dL AH Workflow SS Lymphocytes (Bld) [#/Vol] 2.4 103/mcL Normal 0.9 - 4.3 10^3/mcL AH Workflow SS Lymphocytes/100 WBC (Bld) 24.4 % Normal 20.0 - 40.0 % AH Workflow SS MCH (RBC) [Entitic mass] 32.9 pg Normal 27.0 - 33.0 pg AH Workflow SS MCHC 34.2 G/dL Normal 32.0 - 36.0 G/dL AH Workflow SS MCV (RBC) [Entitic vol] 96.3 fL Normal 81.0 - 100.0 fL AH Workflow SS Monocytes (Bld) [#/Vol] 0.6 103/mcL Normal 0.1 - 1.4 10^3/mcL AH Workflow SS Monocytes/100 WBC (Bld) 5.7 % Normal 2.0 - 13.0 % AH Workflow SS Neutrophils (Bld) [#/Vol] 6.7 103/mcL Normal 2.3 - 8.1 10^3/mcL AH Workflow SS Neutrophils/100 WBC (Bld) 67.6 % Normal 50.0 - 75.0 % AH Workflow SS Platelet mean volume (Bld) [Entitic vol] 10.6 fL High 6.4 - 10.5 fL AH Workflow SS Platelets (Bld) [#/Vol] 187 103/mcL Normal 150 - 450 10^3/mcL AH Workflow SS Potassium [Moles/Vol] 4.2 mmol/L Normal 3.5 - 5.0 mEq/L AH ADM SS Protein [Mass/Vol] 6.9 G/dL Normal 5.7 - 8.2 G/dL AH ADM SS Comment on above: Interpretive Data: * *Note - New Reference Range in effect 20 RBC (Bld) [#/Vol] 4.99 106/mcL Normal 4.50 - 6.0 0 10^6/mcL AH Workflow SS Sodium [Moles/Vol] 139 mmol/L Normal 136 - 145 mEq/L AH ADM SS Urea nitrogen [Mass/Vol] 12.0 mg/dL Normal 8.0 - 22.0 mg/dL AH ADM SS Urea nitrogen/Creatinine [Mass ratio] 14.3 ratio Normal 10.0 - 22.0 ratio AH ADM SS WBC (Bld) [#/Vol] 9.9 103/mcL Normal 4.5 - 10.8 10^3/mcL AH Workflow SS LABORATORYOrdered By: Nidia Amin on 01-13-2024 Appearance (U) Clear (01/13/24 11:01 AM) Normal Clear AH Auto Urine SS Bilirubin Ql (U) Negative (01/13/24 11:01 AM) Normal Neg-Trace AH Auto Urine SS Color (U) Yellow (01/13/24 11:01 AM) Normal AH Auto Urine SS Glucose Test strip (U) [Mass/Vol] Negative Normal Negative AH Auto Urine SS Hemoglobin Auto test strip (U) [Mass/Vol] Negative (01/13/24 11:01 AM) Normal Neg-Trace AH Auto Urine SS Ketones Ql (U) Negative Normal Neg-Trace AH Auto Urine SS UA Leuk Est Negative (01/13/24 11:01 AM) Normal Negative AH Auto Urine SS UA Nitrite Negative (01/13/24 11:01 AM) Normal Negative AH Auto Urine SS UA pH 5.5 (01/13/24 11:01 AM) Normal 5.0 - 8.0 AH Auto Urine SS UA Protein Negative Normal Negative AH Auto Urine SS UA Spec Grav 1.025 (01/13/24 11:01 AM) Normal 1.006-1.029 AH Auto Urine SS UA Specimen Type Clean Catch (01/13/24 11:01 AM) Normal AH Auto Urine SS UA Urobilinogen 0.2 E.U./dL Normal 0.2-1.0 AH Auto Urine SS LABORATORYOrdered By: Wisam Boswell on 01-13-2024 aPTT Coag (Bld) [Time] 35.8 s High 25.0 - 35.0 seconds [facility] SS Comment on above: Interpretive Data: F or Heparin anticoagulation therapy, the recommended therapeutic range is: 54-77 seconds (APTT Correlation with Anti-Xa therapeutic range of 0.3-0.7 units/ml). PLEASE REFERENCE THE PHARMACY PROTOCOL FOR DOSING. Heparin dose (APTT) None Normal AH Coagulation S PT Coag (PPP) [Time] 10.7 s Normal 9.0 - 1 4.2 seconds [facility] SS Comment on above: Interpretive Data: E ffective 05/18/08, Protime results may be affected by some antibiotics (i.e. Ciprofloxacin, Azithromycin, Bactrim) which may potentiate the action of oral anticoagulants, with further increases in Protime/INR. PT International Ratio 0.9 ratio Invalid Interpretation Code AH [facility] SS Comment on above: Interpretive Data: Dory suazo [employer] (CHEST, 1991, 102:[id number]) recommended therapeutic range for oral anticoagulant therapy is: LOW RISK: Prophylaxis of venous thrombosis INR: 2.0-3.0 Treatment of pulmonary embolism 2.0-3.0 Prevention of systemic embolism 2.0-3.0 HIGH RISK: Mechanical prosthetic valves 2.5-3.5 PROon 01-13-2024 INR Coag (PPP) [Relative time] 0.9 {INR} Normal [facility] ([place]) Comment on above: Result Comment: [employer] (CHEST, 1991, [id number]) recommended therapeutic range for oral anticoagulant therapy is: LOW RISK: Prophylaxis of venous thrombosis INR: 2.0-3.0 Treatment of pulmonary embolism 2.0-3.0 Prevention of systemic embolism 2.0-3.0 HIGH RISK: Mechanical prosthetic valves 2.5-3.5 Performed By: #### A EDUARDO, PRO, GFR, CMP, CBC, ADIFF #### [address] [address] PT Coag (PPP) [Time] 10.7 s Normal 9.0-14.2 [facility] ([place]) Comment on above: Result Comment: Effe ctive 05/18/08, Protime results may be affected by some antibiotics (i.e. Ciprofloxacin, Azithromycin, Bactrim) which may potentiate the action of oral anticoagulants, with further increases in Protime/INR. Performed By: #### A EDUARDO, PRO, GFR, CMP, CBC, ADIFF #### [address] [address] UAon 01-13-2024 Color (U) Yellow Normal [facility] ([place]) Comment on above: Performed By: #### U A #### [address] [address] Glucose (U) [Mass/Vol] Negative Normal Negative [facility] ([place]) Comment on above: Performed By: #### U A #### [place] [id number] Ketones Ql (U) Negative Normal Neg-Trace [facility] ([place]) Comment on above: Performed By: #### U A #### [place] [address] UA Appear Clear Normal Clear [facility] ([place]) Comment on above: Performed By: #### U A #### [place] [address] UA Blood Negative Normal Neg-Trace [facility] ([place] Comment on above: Performed By: #### U A #### [place] [address] UA Leuk Est Negative Normal Negative [facility] ([place]) Comment on above: Performed By: #### U A #### [place] [address] UA Nitrite Negative Normal Negative [facility] ([place] Comment on above: Performed By: #### U A #### [place] [address] UA pH 5.5 Normal 5.0 - 8.0 [facility] ([place]) Comment on above: Performed By: #### U A #### [place] [address] UA Protein Negative Normal Negative [facility] ([place] Comment on above: Performed By: #### U A #### [place] [address] UA Spec Grav 1.025 Normal 1.006-1.029 [facility] ([place]) Comment on above: Performed By: #### U A #### [place] [address] UA Specimen Type Clean Catch Normal [facility] ([place]) Comment on above: Performed By: #### U A #### [place] [address] UA Urobilinogen 0.2 E.U./dL Normal 0.2-1.0 [facility] ([place]) Comment on above: Performed By: #### U A #### [address] [address] Urobilinogen (U) [Mass/Vol] Negative Normal Neg-Trace [facility] ([place] Comment on above: Performed By: #### U A #### [address] [address] XR CHEST 2 VIEWSon XR CHEST 2 VIEWS ORIGINAL EXAMINATION: TWO XRAY VIEWS OF THE CHEST01/13/2024 11:43 am COMPARISON: 08/27/2023 HISTORY: ORDERING SYSTEM PROVIDED HISTORY: Reason for Exam: cough FINDINGS: The cardiomediastinal contours are normal. There is no consolidation, vascular congestion, pleural effusion, or pneumothorax. There are no acute abnormalities to osseous structures. Prior fixation of the left clavicle noted. IMPRESSION: No acute radiographic findings. Interpreted by: Hannah García DO Preliminary Report By: Hannah García DO Electronically signed By Hannah García DO Dictated Date: 01/13/2024 11:48:05 AM Prelim Date: 01/13/2024 11:49:08 AM Sign Date: 01/13/2024 11:49:08 AM Ordering Provider: MIGUEL Brito [facility] ([place]) MRI SPINE LUMBAR W/ + W/O CO NTRASTon 12-13-2023 MRI SPINE LUMBAR W/ + W/O CONTRAST ORIGINAL HISTORY: Back pain COMPARISON: 13 June 2023 TECHNIQUE: 1. Sagittal T1-weighted images. 2. Sagittal T2-weighted images with and without fat saturation. 3. Axial T1-weighted images. 4. Axial T2-weighted images. 5. Axial and sagittal T1-weighted images following uncomplicated administration of intravenous gadolinium contrast. FINDINGS: There are 5 lumbar type vertebral bodies for the purpose of this dictation. There is grade 1 retrolisthesis at L3-L4 and L5-S1. There is an L4-L5 laminectomy. The remaining vertebral bodies are intact. There is disc desiccation disc space narrowing in the lower lumbar spine. The tip of the conus is at the L1-L2 level. There is no abnormal signal within the visualized spinal cord. Specific findings by level: L2-L3: Unremarkable. L3-L4: There is a mild posterior disc bulge/pseudo bulge. There is mild facet and ligamentum flavum hypertrophy. L4-L5: There is a mild posterior disc bulge with a small superimposed central extrusion. L5-S1: There is mild spondylosis. There is a superimposed mild to moderate posterior disc bulge. IMPRESSION: Mild multilevel degenerative changes with a superimposed L4-L5 laminectomy. No significant stenosis. Interpreted by: Cory Siegel MD Preliminary Report By: Cory Siegel MD Electronically signed By Cory Siegel MD Dictated Date: 12/13/2023 12:48:21 PM Prelim Date: 12/13/2023 12:53:28 PM Sign Date: 12/13/2023 12:53:28 PM Ordering Provider: MIGUEL CHA [facility] ([place]) XR SPINE LUMBAR AP/LATon XR SPINE LUMBAR AP/LAT ORIGINAL EXAMINATION: 2 XRAY VIEWS OF THE LUMBAR SPINE 10/25/2023 4:04 pm COMPARISON: CT lumbar spine on 09/13/2023 HISTORY: ORDERING SYSTEM PROVIDED HISTORY: Reason for Exam: back pain s-p fall FINDINGS: There are 4 lumbar vertebrae. The lumbar spine alignment is normal. Vertebral bodies are normal in height with no fracture. Mild narrowing of intervertebral disc space is present, greatest at L4-S1. Facet joints have normal alignment and appear unremarkable. There is no evidence of spondylolysis. Patient has had laminectomy at the L4 level. IMPRESSION: No fracture or subluxation of lumbar spine. Mild lumbar spondylosis. Interpreted by: Kurt Justice MD Preliminary Report By: Kurt Justice MD Electronically signed By Kurt Justice MD Dictated Date: 10/26/2023 1:12:58 AM Prelim Date: 10/26/2023 1:15:16 AM Sign Date: 10/26/2023 1:15:16 AM Ordering Provider: BETO LEWIS [facility] ([place]) .Auto Diffon 09-13-2023 Basophil, Absolute 0.1 10 3/mcL Normal 0.0-0.2 [facility] ([place]) Comment on above: Performed By: #### C VFLURV #### [facility] [address] [place] [address] Basophils/100 WBC (Bld) 0.9 % Normal 0.0-2.5 [facility] ([place]) Comment on above: Performed By: #### C VFLURV #### [address] [address] Eosinophil, Absolute 0.2 10 3/mcL Normal 0.0-0.4 [facility] ([place]) Comment on above: Performed By: #### C VFLURV #### [address] [address] Eosinophils/100 WBC (Bld) 2.2 % Normal 0.0-7.0 [facility] ([place] Comment on above: Performed By: #### C VFLURV #### [address] [address] Lymphocyte, Absolute 2.9 10 3/mcL Normal 0.8-3.9 [facility] ([place]) Comment on above: Performed By: #### C VFLURV #### [address] [address] Lymphocytes/100 WBC (Bld) 32.9 % Normal 10.0-50.0 [facility] ([place] Comment on above: Performed By: #### C VFLURV #### [address] [address] Monocyte, Absolute 0.9 10 3/mcL Normal 0.2-1.0 [facility] ([place]) Comment on above: Performed By: #### C VFLURV #### [address] [address] Monocytes/100 WBC (Bld) 9.9 % Normal 1.7-13.0 [facility] ([place] Comment on above: Performed By: #### C VFLURV #### [address] [address] Neutrophils/100 WBC (Bld) 54.1 % Normal 37.0-80.0 [facility] ([place] Comment on above: Performed By: #### C VFLURV #### [address] [address] .GFRon 09-13-2023 GFR Non- 80 ml/min/1.73sqm Normal [facility] ([place]) Comment on above: Result Comment: GFR Population mean for , Non- Americans Ages 20-29 = 116 mL/min/1.73 sq.m. Ages 30-39 = 107 mL/min/1.73 sq.m. Ages 40-49 = 99 mL/min/1.73 sq.m. Ages 50-59 = 93 mL/min/1.73 sq.m. Ages 60-69 = 85 mL/min/1.73 sq.m. Ages 70+ = 75 mL/min/1.73 sq.m. Chronic Kidney Disease: Less than 60 mL/min/1.73 square meters End Stage Renal Disease: Less than 15 mL/min/1.73 square meters Performed By: #### C VFLURV #### [address] [address] GFR 97 ml/min/1.73sqm Normal [facility] ([place] Comment on above: Result Comment: GFR Population mean for , Non- Americans Ages 20-29 = 116 mL/min/1.73 sq.m. Ages 30-39 = 107 mL/min/1.73 sq.m. Ages 40-49 = 99 mL/min/1.73 sq.m. Ages 50-59 = 93 mL/min/1.73 sq.m. Ages 60-69 = 85 mL/min/1.73 sq.m. Ages 70+ = 75 mL/min/1.73 sq.m. Chronic Kidney Disease: Less than 60 mL/min/1.73 square meters End Stage Renal Disease: Less than 15 mL/min/1.73 square meters Performed By: #### C VFLURV #### [address] [address] .MDWon 09-13-2023 Monocyte Distribution Width 20.20 High 0.00-20.00 [facility] ([place]) Comment on above: Result Comment: For adults in ED, MDW>20.0 may be associated with a higher risk of sepsis during the first 12hrs of hospital admission Performed By: #### C VFLURV #### [address] [address] .NEUABSon 09-13-2023 Neutrophil, Absolute 4.8 10 3/mcL Normal 2.9-6.2 [facility] ([place]) Comment on above: Performed By: #### C VFLURV #### [address] [place] [address] 09-13-2023 BUN/Creatinine Ratio 12 ratio Normal 7-27 [facility] ([place]) Comment on above: Performed By: #### A EDUARDO, GFR, MDW, ADIFF, CBC, BMP #### [address] [address] Calcium [Mass/Vol] 8.7 mg/dL Normal 8.4-10.2 [facility] ([place]) Comment on above: Performed By: #### A EDUARDO, GFR, MDW, ADIFF, CBC, BMP #### [address] [address] Chloride [Moles/Vol] 105 mmol/L Normal 98-107 [facility] ([place]) Comment on above: Performed By: #### A EDUARDO, GFR, MDW, ADIFF, CBC, BMP #### [address] [address] CO2 [Moles/Vol] 26 mmol/L Normal 22-29 [facility] ([place] Comment on above: Performed By: #### A EDUARDO, GFR, MDW, ADIFF, CBC, BMP #### [address] [address] Creatinine [Mass/Vol] 1.03 mg/dL Normal 0.70-1.30 [facility] ([place]) Comment on above: Performed By: #### A EDUARDO, GFR, MDW, ADIFF, CBC, BMP #### [address] [address] Electrolyte Balance 11.0 mEq/L Normal 4.0-15.0 [facility] ([place]) Comment on above: Performed By: #### A EDUARDO, GFR, MDW, ADIFF, CBC, BMP #### [address] [address] Glucose [Mass/Vol] 106 mg/dL High 70-105 [facility] ([place] Comment on above: Performed By: #### A EDUARDO, GFR, ROSEMARIE, ADIFF, CBC, BMP #### [address] [address] Potassium [Moles/Vol] 3.7 mmol/L Normal 3.5-5.1 [facility] ([place] Comment on above: Performed By: #### A EDUARDO, GFR, W, ADIFF, CBC, BMP #### [address] [address] Sodium [Moles/Vol] 142 mmol/L Normal 136-145 [facility] ([place]) Comment on above: Performed By: #### A EDUARDO, GFR, ROSEMARIE, ADIFF, CBC, BMP #### [address] [address] Urea nitrogen [Mass/Vol] 12 mg/dL Normal 7-18 [facility] ([place]) Comment on above: Performed By: #### A EDUARDO GFR, ROSEMARIE, ADIFF, CBC, BMP #### [address] [address] CBCon 09-13-2023 Erythrocyte distribution width (RBC) [Ratio] 13.0 % Normal 11.5-14.5 [facility] ([place]) Comment on above: Performed By: #### C VFLURV #### [address] [address] Hematocrit (Bld) [Volume fraction] 41.0 % Low 42.0-52.0 [facility] ([place]) Comment on above: Performed By: #### C VFLURV #### [address] [address] Hgb 14.1 G/dL Normal 14.0-18.0 [facility] ([place]) Comment on above: Performed By: #### C VFLURV #### [address] [address] MCH (RBC) [Entitic mass] 33.2 pg High 27.0-31.2 [facility] ([place]) Comment on above: Performed By: #### C VFLURV #### [address] [address] MCHC 34.4 G/dL Normal 31.8-35.4 [facility] ([place] Comment on above: Performed By: #### C VFLURV #### [address] [address] MCV (RBC) [Entitic vol] 96.5 fL High 80.0-94.0 [facility] ([place]) Comment on above: Performed By: #### C VFLURV #### [place] [id number] Platelet 175 10 3/mcL Normal 130-400 [facility] ([place]) Comment on above: Performed By: #### C VFLURV #### [place] [id number] Platelet mean volume (Bld) [Entitic vol] 10.0 fL Normal 7.4-10.4 [facility] ([place]) Comment on above: Performed By: #### C VFLURV #### [place] [id number] RBC 4.25 10 6/mcL Normal 4.04-6.13 [facility] ([place]) Comment on above: Performed By: #### C VFLURV #### [place] [id number] WBC 8.9 10 3/mcL Normal 4.6-10.8 [facility] ([place]) Comment on above: Performed By: #### C VFLURV #### [place] [address] CT SPINE LUMBAR W/CONTRASTon 09-13-2023 CT SPINE LUMBAR W/CONTRAST ORIGINAL EXAMINATION: CT OF THE LUMBAR SPINE WITH CONTRAST 09/13/2023 6:39 pm TECHNIQUE: CT of the lumbar spine was performed with the administration of intravenous contrast. Multiplanar reformatted images are provided for review. Automated exposure control, iterative reconstruction, and/or weight based adjustment of the mA/kV was utilized to reduce the radiation dose to as low as reasonably achievable. COMPARISON: MR lumbar spine 06/13/2023, x-ray lumbar spine HISTORY: ORDERING SYSTEM PROVIDED HISTORY: Reason for Exam: post-op pain FINDINGS: There are 4 lumbar type vertebral bodies designated L1 through L4 with presumed sacralization of L5. Minimal retrolisthesis of L2 on L3. The lumbar spine alignment is otherwise within normal limits. Posterior laminectomy changes are present at L4-L5. No acute abnormality identified. Mild circumferential disc bulge at L2-L3 without significant spinal canal stenosis or neural foraminal narrowing. Mild asymmetric disc bulge at L3-L4 without spinal canal stenosis visualized status post laminectomy changes. No neural foraminal narrowing. Mild posterior disc bulge at L4-L5 without spinal canal stenosis or right-sided neural foraminal narrowing. Mild left neural foraminal narrowing. Soft tissue air locules and edema likely representing postsurgical changes. No acute abnormality identified within the limited views of the abdomen. IMPRESSION: No acute findings. Expected postsurgical changes of the subcutaneous tissues overlying the lower lumbar spine, with soft tissue stranding and locules of air. No drainable fluid collection. Mild degenerative changes as described above. I have personally reviewed the images of this examination and agree with the resident's findings and interpretation. Interpreted by: Sky Morataya Preliminary Report By: Danuta Sharma Electronically signed By Sky Morataya Dictated Date: 09/13/2023 6:59:09 PM Prelim Date: 09/13/2023 7:07:20 PM Sign Date: 09/13/2023 7:15:23 PM Ordering Provider: SABI Brito [facility] ([place]) LABORATORYOrdered By: SYSTEM SYSTEM on 09-13-2023 Basophil, Absolute 0.1 103/mcL Invalid Interpretation Code 0.0 - 0.2 10^3/mcL AO Workflow SS Basophils/100 WBC (Bld) 0.9 % Invalid Interpretation Code 0.0 - 2.5 % AO Workflow SS Calcium [Mass/Vol] 8.7 mg/dL Invalid Interpretation Code 8.4 - 10.2 mg/dL AO ADM SS Chloride [Moles/Vol] 105 mmol/L Invalid Interpretation Code 98 - 107 mmol/L AO ADM SS CO2 [Moles/Vol] 26 mmol/L Invalid Interpretation Code 22 - 29 mmol/L AO ADM SS Creatinine [Mass/Vol] 1.03 mg/dL Invalid Interpretation Code 0.70 - 1.30 mg/dL AO ADM SS Electrolyte Balance 11.0 mEq/L Invalid Interpretation Code 4.0 - 15.0 mEq/L AO ADM SS Eosinophil, Absolute 0.2 103/mcL Invalid Interpretation Code 0.0 - 0.4 10^3/mcL AO Workflow SS Eosinophils/100 WBC (Bld) 2.2 % Invalid Interpretation Code 0.0 - 7.0 % AO Workflow SS Erythrocyte distribution width (RBC) [Ratio] 13.0 % Invalid Interpretation Code 11.5 - 14.5 % AO Workflow SS GFR/1.73 sq M.predicted among blacks MDRD (S/P/Bld) [Vol rate/Area] 97 ml/min/1.73sqm Invalid Interpretation Code AO Chemistry S Comment on above: Interpretive Data: GFR Population mean for , Non- Americans Ages 20-29 = 116 mL/min/1.73 sq.m. Ages 30-39 = 107 mL/min/1.73 sq.m. Ages 40-49 = 99 mL/min/1.73 sq.m. Ages 50-59 = 93 mL/min/1.73 sq.m. Ages 60-69 = 85 mL/min/1.73 sq.m. Ages 70+ = 75 mL/min/1.73 sq.m. Chronic Kidney Disease: Less than 60 mL/min/1.73 square meters End Stage Renal Disease: Less than 15 mL/min/1.73 square meters GFR/1.73 sq M.predicted among non-blacks MDRD (S/P/Bld) [Vol rate/Area] 80 ml/min/1.73sqm Invalid Interpretation Code AO Chemistry S Comment on above: Interpretive Data: GFR Population mean for , Non- Americans Ages 20-29 = 116 mL/min/1.73 sq.m. Ages 30-39 = 107 mL/min/1.73 sq.m. Ages 40-49 = 99 mL/min/1.73 sq.m. Ages 50-59 = 93 mL/min/1.73 sq.m. Ages 60-69 = 85 mL/min/1.73 sq.m. Ages 70+ = 75 mL/min/1.73 sq.m. Chronic Kidney Disease: Less than 60 mL/min/1.73 square meters End Stage Renal Disease: Less than 15 mL/min/1.73 square meters Glucose [Mass/Vol] 106 mg/dL Invalid Interpretation Code 70 - 105 mg/dL AO ADM SS Hematocrit (Bld) [Volume fraction] 41.0 % Invalid Interpretation Code 42.0 - 52.0 % AO Workflow SS Hemoglobin (Bld) [Mass/Vol] 14.1 G/dL Invalid Interpretation Code 14.0 - 18.0 G/dL AO Workflow SS Lymphocyte, Absolute 2.9 103/mcL Invalid Interpretation Code 0.8 - 3.9 10^3/mcL AO Workflow SS Lymphocytes/100 WBC (Bld) 32.9 % Invalid Interpretation Code 10.0 - 50.0 % AO Workflow SS MCH (RBC) [Entitic mass] 33.2 pg Invalid Interpretation Code 27.0 - 31.2 pg AO Workflow SS MCHC 34.4 G/dL Invalid Interpretation Code 31.8 - 35.4 G/dL AO Workflow SS MCV (RBC) [Entitic vol] 96.5 fL Invalid Interpretation Code 80.0 - 94.0 fL AO Workflow SS Monocyte distribution width Auto (Bld) [Entitic vol] 20.20 1 Invalid Interpretation Code 0.00 - 20.00 AO Workflow SS Comment on above: Result Comment: For adults in ED, MDW>20.0 may be associated with a higher risk of sepsis during the first 12hrs of hospital admission Monocyte, Absolute 0.9 103/mcL Invalid Interpretation Code 0.2 - 1.0 10^3/mcL AO Workflow SS Monocytes/100 WBC (Bld) 9.9 % Invalid Interpretation Code 1.7 - 13.0 % AO Workflow SS Neutrophil, Absolute 4.8 103/mcL Invalid Interpretation Code 2.9 - 6.2 10^3/mcL AO Workflow SS Neutrophils/100 WBC (Bld) 54.1 % Invalid Interpretation Code 37.0 - 80.0 % AO Workflow SS Platelet mean volume (Bld) [Entitic vol] 10.0 fL Invalid Interpretation Code 7.4 - 10.4 fL AO Workflow SS Platelets (Bld) [#/Vol] 175 103/mcL Invalid Interpretation Code 130 - 400 10^3/mcL AO Workflow SS Potassium [Moles/Vol] 3.7 mmol/L Invalid Interpretation Code 3.5 - 5.1 mmol/L AO ADM SS RBC (Bld) [#/Vol] 4.25 106/mcL Invalid Interpretation Code 4.04 - 6.13 10^6/mcL AO Workflow SS Sodium [Moles/Vol] 142 mmol/L Invalid Interpretation Code 136 - 145 mmol/L AO ADM SS Urea nitrogen [Mass/Vol] 12 mg/dL Invalid Interpretation Code 7 - 18 mg/dL AO ADM SS Urea nitrogen/Creatinine [Mass ratio] 12 ratio Invalid Interpretation Code 7 - 27 ratio AO ADM SS WBC (Bld) [#/Vol] 8.9 103/mcL Invalid Interpretation Code 4.6 - 10.8 10^3/mcL AO Workflow SS XR FLUORO 1-2 HRS TECH TIMEo n 09-10-2023 XR FLUORO 1-2 HRS TECH TIME ORIGINAL EXAMINATION: SPOT FLUOROSCOPIC IMAGES 09/10/2023 10:47 am TECHNIQUE: Fluoroscopy was provided by the radiology department for procedure. Radiologist was not present during examination. FLUOROSCOPY DOSE AND TYPE: Radiation Exposure Index: Kerma mGy, 11.409 COMPARISON: None HISTORY: ORDERING SYSTEM PROVIDED HISTORY: Reason for Exam: low back pain Intraprocedural imaging. FINDINGS: Spot intraoperative images are obtained demonstrating surgical instruments projecting in the region of the lower lumbar spine. Detail is limited. Please see operative report for details. IMPRESSION: Intraprocedural fluoroscopic spot images as above. See separate procedure report for more information. Interpreted by: Etta Garnica MD Preliminary Report By: Etta Garnica MD Electronically signed By Etta Garnica MD Dictated Date: 09/10/2023 3:58:35 PM Prelim Date: 09/10/2023 3:59:05 PM Sign Date: 09/10/2023 3:59:05 PM Ordering Provider: MIGUEL Brito [facility] ([place]) .Auto Diffon 08-27-2023 Basophil, Absolute 0.0 10 3/mcL Normal 0.0-0.3 [facility] ([place]) Comment on above: Performed By: #### A EDUARDO, PRO, GFR, CMP, CBC, ADIFF #### [address] [address] Basophils/100 WBC (Bld) 0.5 % Normal 0.0-2.5 [facility] ([place]) Comment on above: Performed By: #### A EDUARDO, PRO, GFR, CMP, CBC, ADIFF #### [address] [address] Eosinophil, Absolute 0.2 10 3/mcL Normal 0.0-0.7 [facility] Comment on above: Performed By: #### A EDUARDO, PRO, GFR, CMP, CBC, ADIFF #### [address] [address] Eosinophils/100 WBC (Bld) 2.1 % Normal 0.0-6.0 [facility] ([place]) Comment on above: Performed By: #### A EDUARDO, PRO, GFR, CMP, CBC, ADIFF #### [address] [address] Lymphocyte, Absolute 1.7 10 3/mcL Normal 0.9-4.3 [facility] ([place]) Comment on above: Performed By: #### A EDUARDO, PRO, GFR, CMP, CBC, ADIFF #### [address] [address] Lymphocytes/100 WBC (Bld) 22.2 % Normal 20.0-40.0 [facility] ([place]) Comment on above: Performed By: #### A EDUARDO, PRO, GFR, CMP, CBC, ADIFF #### [address] [address] Monocyte, Absolute 0.6 10 3/mcL Normal 0.1-1.4 [facility] ([place]) Comment on above: Performed By: #### A EDUARDO, PRO, GFR, CMP, CBC, ADIFF #### [address] [address] Monocytes/100 WBC (Bld) 8.2 % Normal 2.0-13.0 [facility] ([place]) Comment on above: Performed By: #### A EDUARDO, PRO, GFR, CMP, CBC, ADIFF #### [address] [address] Neutrophils/100 WBC (Bld) 67.0 % Normal 50.0-75.0 [facility] ([place]) Comment on above: Performed By: #### A EDUARDO, PRO, GFR, CMP, CBC, ADIFF #### [address] [address] .GFRon 08-27-2023 GFR >60 Normal [facility] ([place]) Comment on above: Result Comment: GFR Population mean for , Non- Americans Ages 20-29 = 116 mL/min/1.73 sq.m. Ages 30-39 = 107 mL/min/1.73 sq.m. Ages 40-49 = 99 mL/min/1.73 sq.m. Ages 50-59 = 93 mL/min/1.73 sq.m. Ages 60-69 = 85 mL/min/1.73 sq.m. Ages 70+ = 75 mL/min/1.73 sq.m. Chronic Kidney Disease: Less than 60 mL/min/1.73 square meters End Stage Renal Disease: Less than 15 mL/min/1.73 square meters Performed By: #### A EDUARDO, PRO, GFR, CMP, CBC, ADIFF #### [address] [address] GFR Non- >60 Normal [facility] ([place]) Comment on above: Result Comment: GFR Population mean for , Non- Americans Ages 20-29 = 116 mL/min/1.73 sq.m. Ages 30-39 = 107 mL/min/1.73 sq.m. Ages 40-49 = 99 mL/min/1.73 sq.m. Ages 50-59 = 93 mL/min/1.73 sq.m. Ages 60-69 = 85 mL/min/1.73 sq.m. Ages 70+ = 75 mL/min/1.73 sq.m. Chronic Kidney Disease: Less than 60 mL/min/1.73 square meters End Stage Renal Disease: Less than 15 mL/min/1.73 square meters Performed By: #### A EDUARDO, PRO, GFR, CMP, CBC, ADIFF #### [address] [address] .NEUABSon 08-27-2023 Neutrophil, Absolute 5.1 10 3/mcL Normal 2.3-8.1 [facility] ([place]) Comment on above: Performed By: #### A EDUARDO, PRO, GFR, CMP, CBC, ADIFF #### [address] [address] APTTon 08-27-2023 aPTT Coag (Bld) [Time] 35.2 s High 25.0-35.0 [facility] ([place]) Comment on above: Result Comment: For Heparin anticoagulation therapy, the recommended therapeutic range is: 54-77 seconds (APTT Correlation with Anti-Xa therapeutic range of 0.3-0.7 units/ml). PLEASE REFERENCE THE PHARMACY PROTOCOL FOR DOSING. Performed By: #### A EDUARDO, PRO, GFR, CMP, CBC, ADIFF #### [place] [address] Heparin dose (APTT) None Normal [facility] ([place]) Comment on above: Performed By: #### A EDUARDO, PRO, GFR, CMP, CBC, ADIFF #### [place] [id number] CBCon 08-27-2023 Erythrocyte distribution width (RBC) [Ratio] 13.1 % Normal 11.5-15.5 [facility] ([place]) Comment on above: Performed By: #### A EDUARDO, PRO, GFR, CMP, CBC, ADIFF #### [place] [address] Hematocrit (Bld) [Volume fraction] 46.2 % Normal 40.0-52.0 [facility] ([place]) Comment on above: Performed By: #### A EDUARDO, PRO, GFR, CMP, CBC, ADIFF #### [place] [id number] Hgb 16.2 G/dL Normal 13.0-17.5 [facility] ([place]) Comment on above: Performed By: #### A EDUARDO, PRO, GFR, CMP, CBC, ADIFF #### [place] [address] MCH (RBC) [Entitic mass] 33.9 pg High 27.0-33.0 [facility] ([place]) Comment on above: Performed By: #### A EDUARDO, PRO, GFR, CMP, CBC, ADIFF #### [place] [id number] MCHC 35.0 G/dL Normal 32.0-36.0 [facility] ([place]) Comment on above: Performed By: #### A EDUARDO, PRO, GFR, CMP, CBC, ADIFF #### [place] [address] MCV (RBC) [Entitic vol] 96.7 fL Normal 81.0-100.0 [facility] ([place] Comment on above: Performed By: #### A EDUARDO, PRO, GFR, CMP, CBC, ADIFF #### [place] [id number] Platelet 197 10 3/mcL Normal 150-450 [facility] ([place] Comment on above: Performed By: #### A EDUARDO, PRO, GFR, CMP, CBC, ADIFF #### [place] [address] Platelet mean volume (Bld) [Entitic vol] 10.4 fL Normal 6.4-10.5 [facility] ([place] Comment on above: Performed By: #### A EDUARDO, PRO, GFR, CMP, CBC, ADIFF #### [place] [id number] RBC 4.77 10 6/mcL Normal 4.50-6.00 [facility] ([place]) Comment on above: Performed By: #### A EDUARDO, PRO, GFR, CMP, CBC, ADIFF #### [place] [id number] WBC 7.7 10 3/mcL Normal 4.5-10.8 [facility] ([place]) Comment on above: Performed By: #### A EDUARDO, PRO, GFR, CMP, CBC, ADIFF #### [place] [address] CMPon 08-27-2023 Albumin Level 4.0 G/dL Normal 3.2-4.8 [facility] ([place]) Comment on above: Performed By: #### A EDUARDO, PRO, GFR, CMP, CBC, ADIFF #### [place] [address] Albumin/Globulin [Mass ratio] 1.2 {ratio} Normal 0.9-1.6 [facility] ([place]) Comment on above: Performed By: #### A EDUARDO, PRO, GFR, CMP, CBC, ADIFF #### [address] [address] ALP [Catalytic activity/Vol] 106 U/L Normal 38-126 [facility] ([place] Comment on above: Performed By: #### A EDUARDO, PRO, GFR, CMP, CBC, ADIFF #### [address] [address] ALT [Catalytic activity/Vol] 60 U/L High 12-55 [facility] ([place] Comment on above: Performed By: #### A EDUARDO, PRO, GFR, CMP, CBC, ADIFF #### [address] [address] AST [Catalytic activity/Vol] 36 U/L High 8-34 [facility] ([place] Comment on above: Performed By: #### A EDUARDO, PRO, GFR, CMP, CBC, ADIFF #### [address] [address] Bili Total 0.60 mg/dL Normal 0.20-1.20 [facility] ([place]) Comment on above: Result Comment: Use of this assay is not recommended for patients undergoing treatment with eltrombopag due to the potential for falsely elevated results. Performed By: #### A EDUARDO, PRO, GFR, CMP, CBC, ADIFF #### [place] [id number] BUN/Creatinine Ratio 17.9 ratio Normal 10.0-22.0 [facility] ([place]) Comment on above: Performed By: #### A EDUARDO, PRO, GFR, CMP, CBC, ADIFF #### [address] [address] Calcium [Mass/Vol] 10.0 mg/dL Normal 8.7-10.4 [facility] ([place]) Comment on above: Performed By: #### A EDUARDO, PRO, GFR, CMP, CBC, ADIFF #### [place] [id number] Chloride [Moles/Vol] 110 mmol/L Normal 98-110 [facility] ([place]) Comment on above: Performed By: #### A EDUARDO, PRO, GFR, CMP, CBC, ADIFF #### [address] [address] CO2 [Moles/Vol] 28 mmol/L Normal 22-32 [facility] ([place]) Comment on above: Performed By: #### A EDUARDO, PRO, GFR, CMP, CBC, ADIFF #### [address] [address] Creatinine [Mass/Vol] 0.84 mg/dL Normal 0.60-1.40 [facility] ([place]) Comment on above: Performed By: #### A EDUARDO, PRO, GFR, CMP, CBC, ADIFF #### [address] [address] Electrolyte Balance 4.0 mEq/L Normal 4.0-15.0 [facility] ([place]) Comment on above: Performed By: #### A EDUARDO, PRO, GFR, CMP, CBC, ADIFF #### [address] [address] Globulin 3.2 G/dL Normal 1.5-3.8 [facility] ([place] Comment on above: Performed By: #### A EDUARDO, PRO, GFR, CMP, CBC, ADIFF #### [address] [address] Glucose [Mass/Vol] 105 mg/dL Normal 70-110 [facility] ([place] Comment on above: Performed By: #### A EDUARDO, PRO, GFR, CMP, CBC, ADIFF #### [address] [address] Potassium [Moles/Vol] 4.2 mmol/L Normal 3.5-5.0 [facility] ([place]) Comment on above: Performed By: #### A EDUARDO, PRO, GFR, CMP, CBC, ADIFF #### [address] [address] Sodium [Moles/Vol] 142 mmol/L Normal 136-145 [facility] ([place]) Comment on above: Performed By: #### A EDUARDO, PRO, GFR, CMP, CBC, ADIFF #### [address] [address] Total Protein 7.2 G/dL Normal 5.7-8.2 [facility] ([place]) Comment on above: Result Comment: No te - New Reference Range in effect 20 Performed By: #### A EDUARDO, PRO, GFR, CMP, CBC, ADIFF #### [address] [address] Urea nitrogen [Mass/Vol] 15.0 mg/dL Normal 8.0-22.0 [facility] ([place] Comment on above: Performed By: #### A EDUARDO, PRO, GFR, CMP, CBC, ADIFF #### [address] [address] CVFLURVon 08-27-2023 FLU A PCR Negative Normal Negative [facility] ([place]) Comment on above: Result Comment: Note s [id number] Performed By: #### C VFLURV #### [place] [id number] FLU B PCR Negative Normal Negative [facility] ([place]) Comment on above: Result Comment: Note s [id number] Performed By: #### C VFLURV #### [place] [address] RSV PCR Negative Normal Negative [facility] ([place]) Comment on above: Result Comment: [place] [id number] Performed By: #### C VFLURV #### [place] [address] SARS-CoV-2 (COVID-19) RNA PASQUALE+probe Ql (Unsp spec) Negative Normal Negative [facility] ([place]) Comment on above: Result Comment: Note s [id number] This test has been authorized by FDA under an EUA for use by authorized laboratories and has not been FDA cleared or approved. Results from the Xpert Xpress SARS-CoV-2/Flu/RSV or Xpert Xpress SARS-CoV-2 only test should be correlated with the clinical history, epidemiological data, and other data available to the clinician evaluating the patient. Performance of the Xpert Xpress SARS-CoV-2/Flu/RSV or Xpert Xpress SARS-CoV-2 only test has only been established in nasopharyngeal swab specimens. Erroneous test results might occur from improper specimen collection; failure to follow the recommended sample collection, handling, and storage procedures; technical error; or sample mix-up.False negative results may occur if virus is present at levels below the analytical limit of detection. Viral nucleic acid may persist in vivo, independent of virus viability. Detection of analyte target(s) does not imply that the corresponding virus(es) are infectious or are the causative agents for clinical symptoms.Recent patient exposure to FluMist or other live attenuated influenza vaccines may cause inaccurate positive results. Performed By: #### C VFLURV #### [address] [address] PROon 08-27-2023 INR Coag (PPP) [Relative time] 1.0 {INR} Normal [facility] ([place]) Comment on above: Result Comment: The [employer] (CHEST, 1992, 102:[id number]) recommended therapeutic range for oral anticoagulant therapy is: LOW RISK: Prophylaxis of venous thrombosis INR: 2.0-3.0 Treatment of pulmonary embolism 2.0-3.0 Prevention of systemic embolism 2.0-3.0 HIGH RISK: Mechanical prosthetic valves 2.5-3.5 Performed By: #### A EDUARDO, PRO, GFR, CMP, CBC, ADIFF #### [address] [address] PT Coag (PPP) [Time] 11.0 s Normal 9.0-14.2 [facility] ([place]) Comment on above: Result Comment: Effe ctive 05/18/08, Protime results may be affected by some antibiotics (i.e. Ciprofloxacin, Azithromycin, Bactrim) which may potentiate the action of oral anticoagulants, with further increases in Protime/INR. Performed By: #### A EDUARDO, PRO, GFR, CMP, CBC, ADIFF #### [address] [address] UAon 08-27-2023 Color (U) Yellow Normal [facility] ([place] Comment on above: Performed By: #### A EDUARDO, PRO, GFR, CMP, CBC, ADIFF #### [address] [address] Glucose (U) [Mass/Vol] Negative Normal Negative [facility] ([place] Comment on above: Performed By: #### A EDUARDO, PRO, GFR, CMP, CBC, ADIFF #### [address] [address] Ketones Ql (U) Negative Normal Neg-Trace [facility] ([place] Comment on above: Performed By: #### A EDUARDO, PRO, GFR, CMP, CBC, ADIFF #### [address] [address] UA Appear Clear Normal Clear [facility] ([place] Comment on above: Performed By: #### A EDUARDO, PRO, GFR, CMP, CBC, ADIFF #### [address] [address] UA Blood Negative Normal Neg-Trace [facility] ([place] Comment on above: Performed By: #### A EDUARDO, PRO, GFR, CMP, CBC, ADIFF #### [place] [address] UA Leuk Est Negative Normal Negative [facility] ([place] Comment on above: Performed By: #### A EDUARDO, PRO, GFR, CMP, CBC, ADIFF #### [place] [address] UA Nitrite Negative Normal Negative [facility] ([place] Comment on above: Performed By: #### A EDUARDO, PRO, GFR, CMP, CBC, ADIFF #### [place] [address] UA pH 5.5 Normal 5.0 - 8.0 [facility] ([place] Comment on above: Performed By: #### A EDUARDO, PRO, GFR, CMP, CBC, ADIFF #### [place] [address] UA Protein Negative Normal Negative [facility] ([place] Comment on above: Performed By: #### A EDUARDO, PRO, GFR, CMP, CBC, ADIFF #### [place] [address] UA Spec Grav >=1.030 Abnormal 1.006-1.029 [facility] ([place] Comment on above: Performed By: #### A EDUARDO, PRO, GFR, CMP, CBC, ADIFF #### [place] [address] UA Specimen Type Clean Catch Normal [facility] ([place] Comment on above: Performed By: #### A EDUARDO, PRO, GFR, CMP, CBC, ADIFF #### [facility] [address] [place] [address] UA Urobilinogen 0.2 E.U./dL Normal 0.2-1.0 [facility] ([place] Comment on above: Performed By: #### A EDUARDO, PRO, GFR, CMP, CBC, ADIFF #### [facility] [address] [place] [id number] Urobilinogen (U) [Mass/Vol] Negative Normal Neg-Trace [facility] [place] Comment on above: Performed By: #### A EDUARDO, PRO, GFR, CMP, CBC, ADIFF #### [facility] [address] [place] [id number] XR CHEST 2 VIEWSon 3 XR CHEST 2 VIEWS ORIGINAL EXAMINATION: TWO XRAY VIEWS OF THE CHEST 08/27/2023 10:36 am COMPARISON: None. HISTORY: ORDERING SYSTEM PROVIDED HISTORY: Reason for Exam: cough FINDINGS: The cardiomediastinal contours are within normal limits. The lungs are clear bilaterally. There is no evidence of focal consolidation, pulmonary edema, pleural effusion or pneumothorax. There is no blunting of the costophrenic angles on the lateral view. Previous ORIF of the left clavicle noted. IMPRESSION: No acute cardiopulmonary process. Interpreted by: Canelo Ware MD Preliminary Report By: Canelo Ware MD Electronically signed By Canelo Ware MD Dictated Date: 08/27/2023 1:53:07 PM Prelim Date: 08/27/2023 1:53:29 PM Sign Date: 08/27/2023 1:53:29 PM Ordering Provider: MIGUEL Brito [facility] [place]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 ####Unless otherwise noted, all testing performed by [address] [phone]: [id number] Director: Christopher Covington M.D. pO2, Venous 56.7 mm Hg High [address] Comment on above: Performed By: #### V BG ####Unless otherwise noted, all testing performed by [address] [phone]: [id number] Director: Christopher Covington M.D. Site (Bld Gas) OTHER Normal [facility] Comment on above: Performed By: #### V BG ####Unless otherwise noted, all testing performed by [address] [phone]: [id number] Director: Christopher Covington M.D. VPO2 23.2 mmol/L Low 24-28 [facility] Comment on above: Performed By: #### V BG ####Unless otherwise noted, all testing performed by [address] [phone]: [id number] Director: Christopher Covington M.D. iSTAT Pediatric Panelon 080 Chloride molar conc 106 mmol/L Normal 98-109 [facility] Comment on above: Performed By: #### E RPED ####Unless otherwise noted, all testing performed by [address] [phone]: [id number] Director: Christopher Covington M.D. CO2 molar conc 22 mmol/L Low 23-32 [facility] Comment on above: Performed By: #### E RPED ####Unless otherwise noted, all testing performed by [address] [phone]: [id number] Director: Christopher Covington M.D. Creatinine mass conc 1.2 mg/dL Normal 0.50-1.30 [facility] Comment on above: Performed By: #### E RPED ####Unless otherwise noted, all testing performed by [address] [phone]: [id number] Director: Christopher Covington M.D. Glucose mass conc 108 mg/dL High 70-99 [facility] Comment on above: Performed By: #### E RPED ####Unless otherwise noted, all testing performed by [address] [phone]: [id number] Director: Christopher Covington M.D. Hematocrit Auto Volume Fraction (Bld) 45 % Normal 43.0-51.0 [facility] Comment on above: Performed By: #### E RPED ####Unless otherwise noted, all testing performed by [address] [phone]: [id number] Director: Christopher Covington M.D. Hemoglobin mass conc (Bld) 15.3 g/dL Normal 12.0-17.0 [facility] Comment on above: Performed By: #### E RPED ####Unless otherwise noted, all testing performed by [address] [phone]: [id number] Director: Christopher Covington M.D. Ionized Calcm 1.14 mmol/L Normal 1.12-1.32 [facility] Comment on above: Performed By: #### E RPED ####Unless otherwise noted, all testing performed by [address]CLIA: [id number] Director: Christopher Covington M.D. Potassium molar conc 3.4 mmol/L Low 3.5-4.9 [facility] Comment on above: Performed By: #### E RPED ####Unless otherwise noted, all testing performed by [place] [phone]: [id number] Director: Christopher Covington M.D. Sodium molar conc 143 mmol/L High 136-141 [facility] Comment on above: Performed By: #### E RPED ####Unless otherwise noted, all testing performed by [place] [phone]: [id number] Director: Christopher Covington M.D. Urea nitrogen mass conc 8 mg/dL Normal 8-26 [facility] Comment on above: Performed By: #### E RPED ####Unless otherwise noted, all testing performed by [address] [place] [phone]: [id number] Director: Christopher Covington M.D. Semen Analysis Post Vason Collect. Meth Masturbation [facility] Comment on above: Performed By: #### 2 [id number] ####LISA Hematology Manual [address] [place] [address] Days Abstained 5 [facility] Comment on above: Performed By: #### 2 [id number] ####LISA Hematology Manual [address] [place] [address] Post Vas Screen No Sperm Seen [facility] Comment on above: Performed By: #### 2 [id number] ####LISA Hematology Manual [address] [place] [address] Protein mass conc [facility] Comment on above: Performed By: #### 2 [id number] ####LISA Hematology Manual [address] [place] [address] Spec. Container Steril Container [facility] Comment on above: Performed By: #### 2 [id number] ####LISA Hematology Manual [address] [place] [address] Total Volume Collected 2.5 mL [facility] Comment on above: Performed By: #### 2 [id number] ####LISA Hematology Manual [address] [place] [address] Vital Signs Date Time Vital Sign Value Performing Clinician Facility 06-22-2025 00:28-0400 Diastolic blood pressure 59 mm[Hg] Larry Su MD Work Phone: [facility] 06-22-2025 00:28-0400 Heart rate 84 /min Larry Su MD Work Phone: [facility] 06-22-2025 00:28-0400 Respiratory rate 18 /min Larry Su MD Work Phone: [facility] 06-22-2025 00:28-0400 SaO2% (BldA) [Mass fraction] 97 % Larry Su MD Work Phone: [facility] 06-22-2025 00:28-0400 Systolic blood pressure 115 mm[Hg] Larry Su MD Work Phone: [facility] 06-21-2025 22:25-0400 Body mass index (BMI) [Ratio] 33.75 kg/m2 Larry Su MD Work Phone: [facility] 06-21-2025 22:25-0400 Body weight 100.7 kg Larry Su MD Work Phone: [facility] 06-21-2025 22:24-0400 Body temperature 97.39 [degF] Larry Su MD Work Phone: [facility] 06-21-2025 12:05-0400 Diastolic blood pressure 62 mm[Hg] Mick Leung MD Work Phone: [facility] 06-21-2025 12:05-0400 Heart rate 71 /min Mick Leung MD Work Phone: [facility] 06-21-2025 12:05-0400 Respiratory rate 16 /min Mick Leung MD Work Phone: [facility] 06-21-2025 12:05-0400 SaO2% (BldA) [Mass fraction] 96 % Mick Leung MD Work Phone: [facility] 06-21-2025 12:05-0400 Systolic blood pressure 105 mm[Hg] Mick Leung MD Work Phone: [facility] 06-21-2025 09:19-0400 Body temperature 97.3 [degF] Mick Leung MD Work Phone: [facility] 06-21-2025 09:18-0400 Body height 172.7 cm Mick Leung MD Work Phone: [employer] [facility] 06-21-2025 09:18-0400 Body mass index (BMI) [Ratio] 31.93 kg/m2 Mick Leung MD Work Phone: [facility] 06-21-2025 09:18-0400 Body weight 95.25 kg Mick Leung MD Work Phone: [facility] 05-13-2025 11:32-0400 Body height 172.72 cm No Primary Care Physician [facility] 05-13-2025 11:32-0400 Body mass index (BMI) [Ratio] 33.5 kg/m2 No Primary Care Physician [facility] 05-13-2025 11:32-0400 Body weight 99.84 kg No Primary Care Physician [facility] 04-30-2025 04:44-0400 Diastolic blood pressure 69 mm[Hg] Kacie Rajesh MUHAMMAD Work Phone: [facility] 04-30-2025 04:44-0400 Heart rate 65 /min Kacie Rajesh MUHAMMAD Work Phone: [facility] 04-30-2025 04:44-0400 Respiratory rate 14 /min Kacie Mena Work Phone: [facility] 04-30-2025 04:44-0400 SaO2% (BldA) [Mass fraction] 97 % Kacie Mena Work Phone: [facility] 04-30-2025 04:44-0400 Systolic blood pressure 115 mm[Hg] Kacie Rajesh MUHAMMAD Work Phone: [facility] 04-30-2025 00:21-0400 Body temperature 98.29 [degF] Kacie Mena DO Work Phone: [facility] 04-30-2025 00:20-0400 Body height 172.7 cm Kacie Mena DO Work Phone: [facility] 04-21-2025 10:52-0400 Body height 172.[address] Ray Broussard MD Work Phone: [facility] 04-21-2025 10:52-0400 Body mass index (BMI) [Ratio] 32.8 kg/m2 Dr. Ray Broussard MD Work Phone: 3(316)563-499585 [place] [address] 04-21-2025 10:52-0400 Body temperature 97 [degF] Dr. Ray Broussard MD Work Phone: 9(314)291-969885 [place] [address] 04-21-2025 10:52-0400 Body weight 98.[address] Ray Broussard MD Work Phone: 9(028)623-348985 [place] [address] 04-21-2025 10:52-0400 Diastolic blood pressure 74 mm[Hg] Dr. Ray Broussard MD Work Phone: 4(339)731-399885 [place] [address] 04-21-2025 10:52-0400 Heart rate 71 /min Dr. Ray Broussard MD Work Phone: 1(402)716-025885 [place] [address] 04-21-2025 10:52-0400 Respiratory rate 16 /min Dr. Ray Broussard MD Work Phone: 4(314)042-231985 [place] [address] 04-21-2025 10:52-0400 SaO2% (BldA) [Mass fraction] 99 % Dr. Ray Broussard MD Work Phone: 3(353)272-562785 [place] [address] 04-21-2025 10:52-0400 Systolic blood pressure 131 mm[Hg] Dr. Ray Broussard MD Work Phone: 8(462)440-899185 [place] [address] 01-05-2025 15:00-0500 Diastolic blood pressure 74 mm[Hg] Dr. Ray Broussard MD Work Phone: 8(389)596-094785 [place] [address] 01-05-2025 15:00-0500 Respiratory rate 18 /min Dr. Ray Broussard MD Work Phone: 3(884)292-314656 [place] [address] 01-05-2025 15:00-0500 SaO2% (BldA) [Mass fraction] 97 % Dr. Ray Broussard MD Work Phone: 0(355)806-461856 [place] [address] 01-05-2025 15:00-0500 Systolic blood pressure 117 mm[Hg] Dr. Ray Broussard MD Work Phone: 2(729)967-686085 [place] [address] 01-05-2025 14:16-0500 Heart rate 67 /min Dr. Ray Broussard MD Work Phone: [facility] 01-05-2025 11:29-0500 Body height 172.[address] Ray Broussard MD Work Phone: [facility] 01-05-2025 11:29-0500 Body mass index (BMI) [Ratio] 33.5 kg/m2 Dr. Ray Broussard MD Work Phone: [facility] 01-05-2025 11:29-0500 Body temperature 98.2 [degF] Dr. Ray Broussard MD Work Phone: [facility] 01-05-2025 11:29-0500 Body weight 100.[address] Ray Broussard MD Work Phone: [facility] 11-02-2024 18:44-0500 Diastolic Blood Pressure Non-Invasive 74 mm[Hg] KRISTY RAMIREZ MD [address] [place] [address] 11-02-2024 18:44-0500 Heart rate 64 /min KRISTY RAMIREZ MD [address] [place] [address] 11-02-2024 18:44-0500 Respiratory rate 18 /min KRISTY RAMIREZ MD [address] [place] [address] 11-02-2024 18:44-0500 Systolic Blood Pressure Non-Invasive 113 mm[Hg] KRISTY RAMIREZ MD [address] [place] [address] 11-02-2024 16:23-0500 Body temperature 97.88 [degF] KRISTY RAMIREZ MD [facility] 11-02-2024 16:23-0500 Body weight 103.5 kg KRISTY RAMIREZ MD [address] [place] [address] 11-02-2024 16:23-0500 Diastolic Blood Pressure Non-Invasive 77 mm[Hg] KRISTY RAMIREZ MD [address] [place] [address] 11-02-2024 16:23-0500 Heart rate 78 /min KRISTY RAMIREZ MD [address] [place] [address] 11-02-2024 16:23-0500 Respiratory rate 18 /min KRISTY RAMIREZ MD [facility] 11-02-2024 16:23-0500 Systolic Blood Pressure Non-Invasive 115 mm[Hg] KRISTY RAMIREZ MD [facility] 10-31-2024 20:44-0500 Diastolic blood pressure 78 mm[Hg] Kian Gaston MD Work Phone: [facility] 10-31-2024 20:44-0500 Heart rate 69 /min Kian Gaston MD Work Phone: [facility] 10-31-2024 20:44-0500 Respiratory rate 18 /min Kian Gaston MD Work Phone: [facility] 10-31-2024 20:44-0500 SaO2% (BldA) [Mass fraction] 97 % Kian Gaston MD Work Phone: [facility] 10-31-2024 20:44-0500 Systolic blood pressure 143 mm[Hg] Kian Gaston MD Work Phone: [facility] 10-31-2024 19:28-0500 Body height 172.7 cm Kian Gaston MD Work Phone: [facility] 10-31-2024 19:28-0500 Body mass index (BMI) [Ratio] 34.36 kg/m2 Kian Gaston MD Work Phone: [facility] 10-31-2024 19:28-0500 Body weight 102.51 kg Kian Gaston MD Work Phone: [facility] 10-31-2024 19:23-0500 Body temperature 97.5 [degF] Kian Gaston MD Work Phone: [facility] 09-09-2024 16:23-0500 Body temperature 98.29 [degF] Mick Leung MD Work Phone: [facility] 09-09-2024 16:23-0500 Diastolic blood pressure 83 mm[Hg] Mick Leung MD Work Phone: [facility] 09-09-2024 16:23-0500 Heart rate 93 /min Mick Leung MD Work Phone: [facility] 09-09-2024 16:23-0500 Respiratory rate 16 /min Mick Leung MD Work Phone: [facility] 09-09-2024 16:23-0500 SaO2% (BldA) [Mass fraction] 97 % Mick Leung MD Work Phone: [facility] 09-09-2024 16:23-0500 Systolic blood pressure 151 mm[Hg] Mick Leung MD Work Phone: [facility] 09-09-2024 16:20-0500 Body height 172.7 cm Mick Leung MD Work Phone: [facility] 09-09-2024 16:20-0500 Body mass index (BMI) [Ratio] 34.48 kg/m2 Mick Leung MD Work Phone: [facility] 09-09-2024 16:20-0500 Body weight 102.88 kg Mick Leung MD Work Phone: [facility] 08-23-2024 20:33-0400 Diastolic blood pressure 80 mm[Hg] Eligio Milton MD Work Phone: [facility] 08-23-2024 20:33-0400 Heart rate 72 /min Eligio Milton MD Work Phone: [facility] 08-23-2024 20:33-0400 SaO2% (BldA) [Mass fraction] 96 % Eligio Milton MD Work Phone: [facility] 08-23-2024 20:33-0400 Systolic blood pressure 132 mm[Hg] Eligio Milton MD Work Phone: [facility] 08-23-2024 19:19-0400 Respiratory rate 18 /min Eligio Milton MD Work Phone: [facility] 08-23-2024 17:28-0400 Body height 172.7 cm Eligio Milton MD Work Phone: [facility] 08-23-2024 17:28-0400 Body mass index (BMI) [Ratio] 30.41 kg/m2 Eligio Milton MD Work Phone: [facility] 08-23-2024 17:28-0400 Body temperature 98.4 [degF] Eligio Milton MD Work Phone: [facility] 08-23-2024 17:28-0400 Body weight 90.72 kg Eligio Milton MD Work Phone: [facility] 02-14-2024 11:50-0400 Body temperature 97.16 [degF] MIGUEL CHA MD [address] [place] [address] 02-14-2024 11:50-0400 Diastolic blood pressure 77 mm[Hg] MIGUEL CHA MD [address] [place] [address] 02-14-2024 11:50-0400 Heart rate 77 /min MIGUEL CHA MD [address] [place] [address] 02-14-2024 11:50-0400 Respiratory rate 16 /min MIGUEL CHA MD [address] [place] [address] 02-14-2024 11:50-0400 Systolic blood pressure 120 mm[Hg] MIGUEL CHA MD [address] [place] [address] 02-14-2024 10:46-0400 Body temperature 96.8 [degF] MIGUEL CHA MD [address] [place] [address] 02-14-2024 10:46-0400 Diastolic Blood Pressure Non-Invasive 75 mm[Hg] MIGUEL CHA MD [address] [place] [address] 02-14-2024 10:46-0400 Heart rate 73 /min MIGUEL CHA MD [address] [place] [address] 02-14-2024 10:46-0400 Respiratory rate 16 /min MIGUEL CHA MD [address] [place] [address] 02-14-2024 10:46-0400 Systolic Blood Pressure Non-Invasive 114 mm[Hg] MIGUEL CHA MD [address] [place] [address] 02-14-2024 10:24-0400 Body temperature 97.16 [degF] MIGUEL CHA MD [address] [place] [address] 02-14-2024 10:24-0400 Diastolic Blood Pressure Non-Invasive 76 mm[Hg] MIGUEL CHA MD [address] [place] [address] 02-14-2024 10:24-0400 Heart rate 76 /min MIGUEL CHA MD [address] [place] [address] 02-14-2024 10:24-0400 Mean blood pressure 88 mm[Hg] MIGUEL CHA MD [address] [place] [address] 02-14-2024 10:24-0400 Respiratory rate 20 /min MIGUEL CHA MD [address] [place] [address] 02-14-2024 10:24-0400 Systolic Blood Pressure Non-Invasive 118 mm[Hg] MIGUEL CHA MD [address] [place] [address] 02-14-2024 10:03-0400 Diastolic Blood Pressure Non-Invasive 73 mm[Hg] MIGUEL CHA MD [address] [place] [address] 02-14-2024 10:03-0400 Heart rate 85 /min MIGUEL CHA MD [address] [place] [address] 02-14-2024 10:03-0400 Mean blood pressure 86 mm[Hg] MGIUEL CHA MD [address] [place] [address] 02-14-2024 10:03-0400 Systolic Blood Pressure Non-Invasive 117 mm[Hg] MIGUEL CHA MD [address] [place] [address] 02-14-2024 09:48-0400 Body temperature 97.16 [degF] MIGUEL CHA MD [address] [place] [address] 02-14-2024 09:48-0400 Mean blood pressure 92 mm[Hg] MIGUEL CHA MD [address] [place] [address] 02-14-2024 09:45-0400 Respiratory Rate - Anes 33 br/min MIGUEL CHA MD [address] [place] [address] 02-14-2024 09:40-0400 Respiratory Rate - Anes 22 br/min MIGUEL CHA MD [address] [place] [address] 02-14-2024 09:35-0400 Respiratory Rate - Anes 11 br/min MIGUEL CHA MD [address] [place] [address] 02-14-2024 09:25-0400 Body temperature 96.55 [degF] MIGUEL CHA MD [address] [place] [address] 02-14-2024 09:20-0400 Body temperature 96.51 [degF] MIGUEL CHA MD [address] [place] [address] 02-14-2024 09:15-0400 Body temperature 96.48 [degF] MIGUEL CHA MD [address] [place] [address] 02-14-2024 07:02-0400 Body height 172.7 cm MIGUEL CHA MD [address] [place] [address] 02-14-2024 07:02-0400 Body weight 97 kg MIGUEL CHA MD [address] [place] [address] 02-14-2024 07:02-0400 Heart rate 65 /min MIGUEL CHA MD [address] [place] [address] 01-16-2024 12:45-0400 Body temperature 96.8 [degF] MIGUEL CHA MD [address] [place] [address] 01-16-2024 12:45-0400 Diastolic blood pressure 6 mm[Hg] MIGUEL CHA MD [address] [place] [address] 01-16-2024 12:45-0400 Heart rate 74 /min MIGUEL CHA MD [address] [place] [address] 01-16-2024 12:45-0400 Respiratory rate 18 /min MIGUEL CHA MD [address] [place] [address] 01-16-2024 12:45-0400 Systolic blood pressure 113 mm[Hg] MIGUEL CHA MD [address] [place] [address] 01-16-2024 11:50-0400 Body temperature 96.8 [degF] MIGUEL CHA MD [address] [place] [address] 01-16-2024 11:50-0400 Diastolic Blood Pressure Non-Invasive 65 mm[Hg] MIGUEL CHA MD [address] [place] [address] 01-16-2024 11:50-0400 Heart rate 82 /min MIGUEL CHA MD [address] [place] [address] 01-16-2024 11:50-0400 Respiratory rate 16 /min MIUGEL CHA MD [address] [place] [address] 01-16-2024 11:50-0400 Systolic Blood Pressure Non-Invasive 110 mm[Hg] MIGUEL CHA MD [address] [place] [address] 01-16-2024 11:32-0400 Body temperature 97.52 [degF] MIGUEL CHA MD [address] [place] [address] 01-16-2024 11:32-0400 Diastolic Blood Pressure Non-Invasive 70 mm[Hg] MIGUEL CHA MD [address] [place] [address] 01-16-2024 11:32-0400 Heart rate 77 /min MIGUEL CHA MD [address] [place] [address] 01-16-2024 11:32-0400 Mean blood pressure 83 mm[Hg] MIGUEL CHA MD [address] [place] [address] 01-16-2024 11:32-0400 Respiratory rate 16 /min MIGUEL CHA MD [address] [place] [address] 01-16-2024 11:32-0400 Systolic Blood Pressure Non-Invasive 112 mm[Hg] MIGUEL CHA MD [address] [place] [address] 01-16-2024 11:10-0400 Diastolic Blood Pressure Non-Invasive 81 mm[Hg] MIGUEL CHA MD [address] [place] [address] 01-16-2024 11:10-0400 Heart rate 83 /min MIGUEL CHA MD [address] [place] [address] 01-16-2024 11:10-0400 Mean blood pressure 94 mm[Hg] MIGUEL CHA MD [address] [place] [address] 01-16-2024 11:10-0400 Systolic Blood Pressure Non-Invasive 116 mm[Hg] MIGUEL CHA MD [address] [place] [address] 01-16-2024 10:52-0400 Body temperature 97.7 [degF] MIGUEL CHA MD [address] [place] [address] 01-16-2024 10:52-0400 Mean blood pressure 111 mm[Hg] MIGUEL CHA MD [address] [place] [address] 01-16-2024 10:45-0400 Respiratory Rate - Anes 20 br/min MIGUEL CHA MD [address] [place] [address] 01-16-2024 10:40-0400 Respiratory Rate - Anes 5 br/min MIGUEL CHA MD [address] [place] [address] 01-16-2024 10:35-0400 Body temperature 97.18 [degF] MIGUEL CHA MD [address] [place] [address] 01-16-2024 10:35-0400 Respiratory Rate - Anes 10 br/min MIGUEL CHA MD [address] [place] [address] 01-16-2024 10:30-0400 Body temperature 97.23 [degF] MIGUEL CHA MD [address] [place] [address] 01-16-2024 10:25-0400 Body temperature 97.18 [degF] MIGUEL CHA MD [address] [place] [address] 01-16-2024 07:00-0400 Body height 172.7 cm MIGUEL CHA MD [address] [place] [address] 01-16-2024 07:00-0400 Body weight 96.3 kg MIGUEL CHA MD [address] [place] [address] 01-16-2024 07:00-0400 Heart rate 68 /min MIGUEL CHA MD [address] [place] [address] 01-13-2024 10:48-0400 Blood Pressure Cuff Size MIGUEL CHA MD [address] [place] [address] 01-13-2024 10:48-0400 Blood Pressure Location MIGUEL CHA MD [address] [place] [address] 01-13-2024 10:48-0400 Blood Pressure Method MIGUEL CHA MD [address] [place] [address] 01-13-2024 10:48-0400 Body height 172 cm MIGUEL CHA MD [address] [place] [address] 01-13-2024 10:48-0400 Body temperature 98.06 [degF] MIGUEL CHA MD [address] [place] [address] 01-13-2024 10:48-0400 Body weight 100.7 kg MIGUEL CHA MD [address] [place] [address] 01-13-2024 10:48-0400 Diastolic Blood Pressure Non-Invasive 77 mm[Hg] MIGUEL CHA MD [address] [place] [address] 01-13-2024 10:48-0400 Heart rate 77 /min MIGUEL CHA MD [address] [place] [address] 01-13-2024 10:48-0400 Systolic Blood Pressure Non-Invasive 118 mm[Hg] MIGUEL CHA MD [address] [place] [address] 10-07-2023 08:56-0500 Blood Pressure Cuff Size MIGUEL CHA MD [address] [place] [address] 10-07-2023 08:56-0500 Blood Pressure Location MIGUEL CHA MD [address] [place] [address] 10-07-2023 08:56-0500 Blood Pressure Method MIGUEL CHA MD [address] [place] [address] 10-07-2023 08:56-0500 Body height 172.7 cm MIGUEL CHA MD [address] [place] [address] 10-07-2023 08:56-0500 Body temperature 98.06 [degF] MIGUEL CHA MD [address] [place] [address] 10-07-2023 08:56-0500 Body weight 95.5 kg MIGUEL CHA MD [address] [place] [address] 10-07-2023 08:56-0500 Body weight 32.02 kg/m2 MIGUEL CHA MD [address] [place] [address] 10-07-2023 08:56-0500 Diastolic Blood Pressure Non-Invasive 78 mm[Hg] MIGUEL CHA MD [address] [place] [address] 10-07-2023 08:56-0500 Heart rate 73 /min MIGUEL CHA MD [address] [place] [address] 10-07-2023 08:56-0500 Respiratory rate 18 /min MIGUEL CHA MD [address] [place] [address] 10-07-2023 08:56-0500 Systolic Blood Pressure Non-Invasive 120 mm[Hg] MIGUEL CHA MD [address] [place] [address] 09-13-2023 20:25-0500 Diastolic Blood Pressure Non-Invasive 68 1 NIDAL CHOUJAA DO [facility] 09-13-2023 20:25-0500 Heart rate 73 /min NIDAL CHOUJAA DO [facility] 09-13-2023 20:25-0500 Respiratory rate 18 /min NIDAL CHOUJAA DO [facility] 09-13-2023 20:25-0500 Systolic Blood Pressure Non-Invasive 116 1 NIDAL CHOUJAA DO [facility] 09-13-2023 18:35-0500 Diastolic Blood Pressure Non-Invasive 52 1 NIDAL CHOUJAA DO [facility] 09-13-2023 18:35-0500 Heart rate 76 /min NIDAL CHOUJAA DO [facility] 09-13-2023 18:35-0500 Respiratory rate 18 /min NIDAL CHOUJAA DO [facility] 09-13-2023 18:35-0500 Systolic Blood Pressure Non-Invasive 96 1 NIDAL CHOUJAA DO [facility] 09-13-2023 16:48-0500 Body height 172.7 cm NIDAL CHOUJAA DO [facility] 09-13-2023 16:48-0500 Body temperature 97.88 [degF] NIDAL CHOUJAA DO [facility] 09-13-2023 16:48-0500 Body weight 97.7 kg NIDAL CHOUJAA DO [facility] 09-13-2023 16:48-0500 Diastolic Blood Pressure Non-Invasive 69 1 NIDAL CHOUJAA DO [facility] 09-13-2023 16:48-0500 Heart rate 79 /min NIDAL CHOUJAA DO [facility] 09-13-2023 16:48-0500 Systolic Blood Pressure Non-Invasive 114 1 NIDAL CHOUJAA DO [facility] 09-13-2023 13:54-0500 Body temperature 98.42 [degF] CHARLENE MENARD MD [facility] 09-13-2023 13:54-0500 Body weight 101.5 kg CHARLENE MENARD MD [facility] 09-13-2023 13:54-0500 Diastolic Blood Pressure Non-Invasive 82 1 CHARLENE MENARD MD [facility] 09-13-2023 13:54-0500 Heart rate 83 /min CHARLENE MENARD MD [address] [place] [address] 09-13-2023 13:54-0500 Respiratory rate 20 /min CHARLENE MENARD MD [facility] 09-13-2023 13:54-0500 Systolic Blood Pressure Non-Invasive 131 1 CHARLENE MENARD MD [facility] 09-11-2023 07:09-0500 Body temperature 98.24 [degF] MIGUEL CHA MD [facility] 09-11-2023 07:09-0500 Diastolic Blood Pressure Non-Invasive 59 1 MIGUEL CHA MD [facility] 09-11-2023 07:09-0500 Heart rate 68 /min MIGUEL CHA MD [facility] 09-11-2023 07:09-0500 Reason For Taking VItal Signs MIGUEL CHA MD [facility] 09-11-2023 07:09-0500 Respiratory rate 16 /min MIGUEL CHA MD [facility] 09-11-2023 07:09-0500 Systolic Blood Pressure Non-Invasive 106 1 MIGUEL CHA MD [facility] 09-11-2023 03:54-0500 Body temperature 98.6 [degF] MIGUEL CHA MD [facility] 09-11-2023 03:54-0500 Diastolic Blood Pressure Non-Invasive 66 1 MIGUEL CHA MD [address] [place] [address] 09-11-2023 03:54-0500 Heart rate 86 /min MIGUEL CHA MD [address] [place] [address] 09-11-2023 03:54-0500 Reason For Taking VItal Signs MIGUEL CHA MD [address] [place] [address] 09-11-2023 03:54-0500 Respiratory rate 16 /min MIGUEL CHA MD [address] [place] [address] 09-11-2023 03:54-0500 Systolic Blood Pressure Non-Invasive 115 1 MIGUEL CHA MD [address] [place] [address] 09-10-2023 23:23-0500 Blood Pressure Location MIGUEL CHA MD [address] [place] [address] 09-10-2023 23:23-0500 Blood Pressure Method MIGUEL CHA MD [address] [place] [address] 09-10-2023 23:23-0500 Body temperature 98.06 [degF] MIGUEL CHA MD [address] [place] [address] 09-10-2023 23:23-0500 Diastolic Blood Pressure Non-Invasive 56 1 MIGUEL CHA MD [address] [place] [address] 09-10-2023 23:23-0500 Heart rate 82 /min MIGUEL CHA MD [address] [place] [address] 09-10-2023 23:23-0500 Reason For Taking VItal Signs MIGUEL CHA MD [address] [place] [address] 09-10-2023 23:23-0500 Respiratory rate 18 /min MIGUEL CHA MD [address] [place] [address] 09-10-2023 23:23-0500 Systolic Blood Pressure Non-Invasive 103 1 MIGUEL CHA MD [address] [place] [address] 09-10-2023 18:59-0500 Blood Pressure Location MIGUEL CHA MD [address] [place] [address] 09-10-2023 18:59-0500 Blood Pressure Method MIGUEL CHA MD [address] [place] [address] 09-10-2023 12:46-0500 Body height 172.7 cm MIGUEL CHA MD [address] [place] [address] 09-10-2023 12:46-0500 Body weight 98 kg MIGUEL CHA MD [address] [place] [address] 09-10-2023 12:46-0500 Body weight 32.86 kg/m2 MIGUEL CHA MD [address] [place] [address] 09-10-2023 12:06-0500 Heart rate 74 /min MIGUEL CHA MD [address] [place] [address] 09-10-2023 11:38-0500 Body temperature 97.34 [degF] MIGUEL CHA MD [address] [place] [address] 09-10-2023 11:38-0500 Heart rate 86 /min MIGUEL CHA MD [address] [place] [address] 09-10-2023 11:38-0500 Mean blood pressure 90 mm[Hg] MIGUEL CHA MD [address] [place] [address] 09-10-2023 11:22-0500 Heart rate 83 /min MIGUEL CHA MD [address] [place] [address] 09-10-2023 11:22-0500 Mean blood pressure 87 mm[Hg] MIGUEL CHA MD [address] [place] [address] 09-10-2023 11:07-0500 Mean blood pressure 86 mm[Hg] MIGUEL CHA MD [address] [place] [address] 09-10-2023 10:52-0500 Body temperature 98.06 [degF] MIGUEL CHA MD [address] [place] [address] 09-10-2023 10:50-0500 Respiratory Rate - Anes 0 br/min MIGUEL CHA MD [address] [place] [address] 09-10-2023 10:45-0500 Respiratory Rate - Anes 14 br/min MIGUEL CHA MD [address] [place] [address] 09-10-2023 10:40-0500 Body temperature 97.86 [degF] MIGUEL CHA MD [address] [place] [address] 09-10-2023 10:40-0500 Respiratory Rate - Anes 14 br/min MIGUEL CHA MD [address] [place] [address] 09-10-2023 10:35-0500 Body temperature 97.81 [degF] MIGUEL CHA MD [address] [place] [address] 09-10-2023 10:30-0500 Body temperature 97.75 [degF] MIGUEL CHA MD [address] [place] [address] 09-10-2023 07:09-0500 Body weight 32.86 kg/m2 MIGUEL CHA MD [address] [place] [address] 09-10-2023 06:55-0500 Body height 172.7 cm MIGUEL CHA MD [address] [place] [address] 09-10-2023 06:55-0500 Body temperature 96.98 [degF] MIGUEL CHA MD [address] [place] [address] 09-10-2023 06:55-0500 Body weight 98 kg MIGUEL CAH MD [address] [place] [address] 09-10-2023 06:55-0500 Body weight 32.86 kg/m2 MIGUEL CHA MD [address] [place] [address] 07-24-2022 16:00-0400 Diastolic blood pressure 73 mm[Hg] No Pcp Required [facility] 07-24-2022 16:00-0400 Heart rate 79 /min No Pcp Required [facility] 07-24-2022 16:00-0400 Respiratory rate 18 /min No Pcp Required [facility] 07-24-2022 16:00-0400 SaO2% (BldA) [Mass fraction] 92 % No Pcp Required [facility] 07-24-2022 16:00-0400 Systolic blood pressure 129 mm[Hg] No Pcp Required [facility] 07-24-2022 15:35-0400 Body temperature 97.88 [degF] No Pcp Required [facility] 07-24-2022 15:13-0400 Body height 172.7 cm No Pcp Required [facility] 07-24-2022 15:13-0400 Body weight 95.3 kg No Pcp Required [facility] 06-11-2022 09:52-0400 Body height 172.7 cm Katey Clinker [employer]GE[employer] TECHNICIAN Work Phone: [facility] 06-11-2022 09:52-0400 Body mass index (BMI) [Ratio] 32.72 kg/m2 Katey Clinker [employer]CTION[employer] SERGEANT[employer]ER[employer] TECHNICIAN Work Phone: [facility] [facility] 06-11-2022 09:52-0400 Body weight 97.61 kg Katey Clinker [employer] SERGEANT[employer]ER[employer] TECHNICIAN Work Phone: [facility] 06-11-2022 09:52-0400 Diastolic blood pressure 79 mm[Hg] Katey Clinker [employer]AL SERGEANT[employer]ERGL[employer] TECHNICIAN Work Phone: [employer] [facility] 06-11-2022 09:52-0400 Heart rate 80 /min Katey Clinker [employer]CTIONAL SERGEANT[employer]ER[employer] TECHNICIAN Work Phone: [employer] [facility] 06-11-2022 09:52-0400 Respiratory rate 18 /min Katey Clinker [employer] SERGEANT[employer]ER[employer] TECHNICIAN Work Phone: [facility] 06-11-2022 09:52-0400 SaO2% (BldA) [Mass fraction] 97 % Katey Clinker [employer] SERGEANT[employer]ER[employer] TECHNICIAN Work Phone: [employer] [facility] 06-11-2022 09:52-0400 Systolic blood pressure 116 mm[Hg] Katey Clinker [employer]CTION[employer] SERGEANT[employer]ER[employer] TECHNICIAN Work Phone: [employer] [facility] 05-26-2022 22:05-0400 Body height 172.7 cm Alexys Queen MD Work Phone: [facility] 05-26-2022 22:02-0400 Body temperature 98.4 [degF] Alexys Queen MD Work Phone: [facility] 05-26-2022 22:02-0400 Diastolic blood pressure 64 mm[Hg] Alexys Queen MD Work Phone: [facility] 05-26-2022 22:02-0400 Heart rate 89 /min Alexys Queen MD Work Phone: [facility] 05-26-2022 22:02-0400 Respiratory rate 16 /min Alexys Queen MD Work Phone: [facility] 05-26-2022 22:02-0400 SaO2% (BldA) [Mass fraction] 99 % Alexys Queen MD Work Phone: [facility] 05-26-2022 22:02-0400 Systolic blood pressure 149 mm[Hg] Alexys Queen MD Work Phone: [facility] 05-15-2022 15:38-0400 Body height 174 cm Katye Clinker [employer]CTIONAL SERGEANT[employer]ER[employer] TECHNICIAN Work Phone: [facility] 05-15-2022 15:38-0400 Body mass index (BMI) [Ratio] 32.81 kg/m2 Katey Clinker [employer] SERGEANT[employer]ER[employer] TECHNICIAN Work Phone: [facility] 05-15-2022 15:38-0400 Body weight 99.34 kg Katey Clinker [employer]AL SERGEANT[employer]ER[employer] TECHNICIAN Work Phone: [facility] 05-15-2022 15:38-0400 Diastolic blood pressure 76 mm[Hg] Katey Clinker [employer] SERGEANT[employer]ER[employer] TECHNICIAN Work Phone: [facility] 05-15-2022 15:38-0400 Heart rate 77 /min Katey Clinker [employer] SERGEANT[employer]ER[employer] TECHNICIAN Work Phone: [facility] 05-15-2022 15:38-0400 Respiratory rate 18 /min Katey Clinker [employer]AL SERGEANT[employer]ER[employer] TECHNICIAN Work Phone: [facility] 05-15-2022 15:38-0400 SaO2% (BldA) [Mass fraction] 96 % Katey Medina [employer]RECTIONAL SERGEANT[employer]ER[employer]ASS TECHNICIAN Work Phone: [facility] 05-15-2022 15:38-0400 Systolic blood pressure 118 mm[Hg] Katey Medina [employer]CTIONAL SERGEANT[employer]ER[employer] TECHNICIAN Work Phone: [facility] 02-08-2022 13:57-0400 Body height 174 cm Benji Kilgore MD Work Phone: [facility] 02-08-2022 13:57-0400 Body mass index (BMI) [Ratio] 32.81 kg/m2 Benji Kilgore MD Work Phone: [facility] 02-08-2022 13:57-0400 Body weight 99.34 kg Benji Kilgore MD Work Phone: [facility] 02-08-2022 13:57-0400 Heart rate 88 /min Benji Kilgore MD Work Phone: [facility] 02-08-2022 13:57-0400 Respiratory rate 18 /min Benji Kilgore MD Work Phone: [facility] 02-08-2022 13:57-0400 SaO2% (BldA) [Mass fraction] 97 % Benji Kilgore MD Work Phone: [facility] 11-22-2021 14:51-0500 Diastolic blood pressure 92 mm[Hg] Benji Kilgore MD Work Phone: [facility] 11-22-2021 14:51-0500 Heart rate 76 /min Benji Kilgore MD Work Phone: [facility] 11-22-2021 14:51-0500 Respiratory rate 18 /min Benji Kilgore MD Work Phone: [facility] 11-22-2021 14:51-0500 SaO2% (BldA) [Mass fraction] 97 % Benji Kilgore MD Work Phone: [facility] 11-22-2021 14:51-0500 Systolic blood pressure 142 mm[Hg] Benji Kilgore MD Work Phone: [facility] 09-12-2021 13:59-0500 Body mass index (BMI) [Ratio] 33.45 kg/m2 Katey Clinker [employer]CTIONAL SERGEANT[employer]ER[employer] TECHNICIAN Work Phone: [facility] 09-12-2021 13:59-0500 Body weight 99.79 kg Katey Clinker [employer]RECTIONAL SERGEANT[employer]ER[employer] TECHNICIAN Work Phone: [facility] 09-12-2021 13:59-0500 Diastolic blood pressure 79 mm[Hg] Katey Clinker [employer]AL SERGEANT[employer]ER[employer] TECHNICIAN Work Phone: [facility] 09-12-2021 13:59-0500 Heart rate 85 /min Katey Clinker [employer]AL SERGEANT[employer]ER[employer] TECHNICIAN Work Phone: [facility] 09-12-2021 13:59-0500 Respiratory rate 19 /min Katey Clinker [employer]CTIONAL SERGEANT[employer]ERGLASS TECHNICIAN Work Phone: [facility] 09-12-2021 13:59-0500 SaO2% (BldA) [Mass fraction] 94 % Katey Clinker [employer]CTIONAL SERGEANT[employer]ERGL[employer] TECHNICIAN Work Phone: [facility] 09-12-2021 13:59-0500 Systolic blood pressure 115 mm[Hg] Katey Clinker [employer]RECTIONAL SERGEANT[employer]ER[employer] TECHNICIAN Work Phone: [facility] 05-26-2021 11:41-0400 Diastolic blood pressure 86 mm[Hg] Benji Kilgore MD Work Phone: [facility] 05-26-2021 11:41-0400 Heart rate 79 /min Benji Kilgore MD Work Phone: [facility] 05-26-2021 11:41-0400 Respiratory rate 18 /min Benji Kilgore MD Work Phone: [facility] 05-26-2021 11:41-0400 SaO2% (BldA) [Mass fraction] 99 % Benji Kilgore MD Work Phone: [facility] 05-26-2021 11:41-0400 Systolic blood pressure 127 mm[Hg] Benji Kilgore MD Work Phone: [facility] 04-13-2021 13:09-0400 Body height 172.7 cm Benji Kilgore MD Work Phone: [facility] 04-13-2021 13:09-0400 Body mass index (BMI) [Ratio] 32.84 kg/m2 Benji Kilgore MD Work Phone: [facility] 04-13-2021 13:090400 Body weight 97.98 kg Benji Kilgore MD Work Phone: [facility] 04-13-2021 13:09-0400 Diastolic blood pressure 64 mm[Hg] Benji Kilgore MD Work Phone: [facility] 04-13-2021 13:09-0400 Heart rate 72 /min Benji Kilgore MD Work Phone: [facility] 04-13-2021 13:09-0400 Respiratory rate 20 /min Benji Kilgore MD Work Phone: [facility] 04-13-2021 13:09-0400 SaO2% (BldA) [Mass fraction] 95 % Benji Kilgore MD Work Phone: [facility] 04-13-2021 13:09-0400 Systolic blood pressure 114 mm[Hg] Benji Kilgore MD Work Phone: [facility] 03-31-2021 12:40-0400 Diastolic blood pressure 99 mm[Hg] Benji Kilgore MD Work Phone: [facility] 03-31-2021 12:40-0400 Heart rate 81 /min Benji Kilgore MD Work Phone: [facility] 03-31-2021 12:40-0400 Respiratory rate 18 /min Benji Kilgore MD Work Phone: [facility] 03-31-2021 12:40-0400 SaO2% (BldA) [Mass fraction] 100 % Benji Kilgore MD Work Phone: [facility] 03-31-2021 12:40-0400 Systolic blood pressure 132 mm[Hg] Benji Kilgore MD Work Phone: [facility] 02-06-2021 13:10-0400 BMI (Body Mass Index) 33.45 kg/m2 [facility] 02-06-2021 13:10-0400 Body Temperature 98.4 [degF] [facility] 02-06-2021 13:10-0400 Body weight 99.79 kg [facility] 02-06-2021 13:10-0400 Height 172.7 cm [facility] 02-02-2021 10:53-0400 BMI (Body Mass Index) 33.45 kg/m2 [facility] 02-02-2021 10:53-0400 Body weight 99.79 kg [facility] 02-02-2021 10:53-0400 BP Diastolic 75 mm[Hg] [facility] 02-02-2021 10:53-0400 BP Systolic 120 mm[Hg] [facility] 02-02-2021 10:53-0400 Height 172.7 cm [facility] 02-02-2021 10:53-0400 Pulse (Heart Rate) 83 /min [facility] 02-02-2021 10:53-0400 Pulse Oximetry 95 % [facility] 02-02-2021 10:53-0400 Respiratory Rate 20 /min [facility] 01-20-2021 13:45-0400 BP Diastolic 58 mm[Hg] [facility] 01-20-2021 13:45-0400 BP Systolic 128 mm[Hg] [facility] 01-20-2021 13:45-0400 Pulse (Heart Rate) 81 /min [facility] 01-20-2021 13:45-0400 Pulse Oximetry 97 % [facility] 01-20-2021 13:45-0400 Respiratory Rate 18 /min [facility] 01-20-2021 13:06-0400 Body Temperature 98.4 [degF] [facility] 01-12-2021 11:31-0500 BMI (Body Mass Index) 32.39 kg/m2 [facility] 01-12-2021 11:31-0500 Body weight 96.62 kg [facility] 01-12-2021 11:31-0500 BP Diastolic 74 mm[Hg] [facility] 01-12-2021 11:31-0500 BP Systolic 125 mm[Hg] [facility] 01-12-2021 11:31-0500 Height 172.7 cm [facility] 01-12-2021 11:31-0500 Pulse (Heart Rate) 75 /min [facility] 01-12-2021 11:31-0500 Pulse Oximetry 97 % [facility] 01-12-2021 11:31-0500 Respiratory Rate 20 /min [facility] 12-30-2020 15:17-0500 BP Diastolic 76 mm[Hg] [facility] 12-30-2020 15:17-0500 BP Systolic 129 mm[Hg] [facility] 12-30-2020 15:17-0500 Pulse (Heart Rate) 75 /min [facility] 12-30-2020 15:17-0500 Pulse Oximetry 99 % [facility] 12-30-2020 15:17-0500 Respiratory Rate 16 /min [facility] 12-22-2020 11:36-0500 BMI (Body Mass Index) 33.75 kg/m2 [facility] 12-22-2020 11:36-0500 Body weight 100.7 kg [facility] 12-22-2020 11:36-0500 BP Diastolic 91 mm[Hg] [facility] 12-22-2020 11:36-0500 BP Systolic 128 mm[Hg] [facility] 12-22-2020 11:36-0500 Height 172.7 cm [facility] 12-22-2020 11:36-0500 Pulse (Heart Rate) 82 /min [facility] 12-22-2020 11:36-0500 Pulse Oximetry 97 % [facility] 12-22-2020 11:36-0500 Respiratory Rate 17 /min [facility] 11-29-2020 09:12-0500 BMI (Body Mass Index) 32.78 kg/m2 [facility] 11-29-2020 09:12-0500 Body Temperature 98.71 [degF] [facility] 11-29-2020 09:12-0500 Body weight 97.8 kg [facility] 11-29-2020 09:12-0500 Height 172.7 cm [facility] 11-07-2020 09:04-0500 BMI (Body Mass Index) 32.78 kg/m2 [facility] 11-07-2020 09:04-0500 Body Temperature 98.71 [degF] [facility] 11-07-2020 09:04-0500 Body weight 97.8 kg [facility] 11-07-2020 09:04-0500 Height 172.7 cm [facility] 10-12-2020 19:54-0500 BMI (Body Mass Index) 31.17 kg/m2 [facility] 10-12-2020 19:54-0500 Body weight 92.99 kg [facility] 10-12-2020 19:54-0500 Height 172.7 cm [facility] 10-12-2020 19:53-0500 Body Temperature 97 [degF] [facility] 10-12-2020 19:53-0500 BP Diastolic 59 mm[Hg] [facility] 10-12-2020 19:53-0500 BP Systolic 118 mm[Hg] [facility] 10-12-2020 19:53-0500 Pulse (Heart Rate) 88 /min [facility] 10-12-2020 19:53-0500 Pulse Oximetry 94 % [facility] 10-12-2020 19:53-0500 Respiratory Rate 16 /min [facility] 05-30-2020 21:22-0400 Body Temperature 98.71 [degF] lay [facility] Comment on above: [facility] 05-30-2020 21:22-0400 BP Diastolic 62 mm[Hg] lay Bender [facility] 05-30-2020 21:22-0400 BP Systolic 120 mm[Hg] Edlay [facility] 05-30-2020 21:22-0400 Pulse (Heart Rate) 62 /min lay [facility] 05-30-2020 21:22-0400 Pulse Oximetry 99 % lay [facility] 05-30-2020 21:22-0400 Respiratory Rate 16 /min [facility] 05-30-2020 19:11-0400 BMI (Body Mass Index) 30.41 kg/m2 Adam [facility] 05-30-2020 19:11-0400 Body weight 90.72 kg Robbielya Bender [facility] 05-30-2020 19:11-0400 Height 172.7 cm Adam [facility] 05-12-2020 00:03-0400 BP Diastolic 80 mm[Hg] Physician No [facility] 05-12-2020 00:03-0400 BP Systolic 119 mm[Hg] Physician No [facility] 05-12-2020 00:00-0400 Pulse (Heart Rate) 75 /min Physician No [facility] 05-12-2020 00:00-0400 Pulse Oximetry 97 % Physician No [facility] 05-12-2020 00:00-0400 Respiratory Rate 16 /min Physician No [facility] 05-11-2020 23:07-0400 Body Temperature 98.71 [degF] Physician No [facility] 05-11-2020 22:47-0400 BMI (Body Mass Index) 28.89 kg/m2 Physician No [facility] 05-11-2020 22:47-0400 Body weight 86.18 kg Physician No [facility] 05-11-2020 22:47-0400 Height 172.7 cm Physician No [facility] NEGATED: Highlighted [id number] 09:08-0400 BMI (Body Mass Index) 31.58 kg/m2 Leah Cabrales LPN [facility] Work Phone: NEGATED: Highlighted [id number] 09:08-0400 Body weight 95.26 kg Leah Keron PLANER OFFBEARER [facility] Work Phone: NEGATED: Highlighted [id number] 09:08-0400 Body weight 95 kg Leah Blackert PLANER OFFBEARER [facility] Work Phone: NEGATED: Highlighted [id number] 09:08-0400 Height 173.99 cm Leah Blackert PLANER OFFBEARER [facility] Work Phone: NEGATED: Highlighted [id number] 09:08-0400 Height 174 cm Leah Blackert PLANER OFFBEARER [facility] Work Phone: Encounters Encounter Date Encounter Type Care Provider Facility Start: 10-07-2025 ambulatory Mick Oliveira ty:[facility] Start: 09-09-2025 ambulatory Mick Rothmani ty:[facility] Start: 07-29-2025 End: 07-29-2025 Emergency department patient visit [facility] Start: 07-22-2025 End: 07-22-2025 Patient encounter procedure Paige MORA -[facility] Work Phone: Start: 07-22-2025 End: 07-22-[address] Binh Mckee DO Work Phone: -[facility] Start: 07-08-2025 End: 07-08-[address] Binh Mckee DO Work Phone: [facility] Start: 07-08-2025 End: 07-08-2025 Patient encounter procedure Paige MORA [facility] Work Phone: Start: 07-08-2025 End: 07-08-2025 ambulatory Paige Shine Facility:[facility] Start: 06-21-2025 End: 06-22-2025 Emergency department patient visit Larry Su MD Work Phone: [facility] Emergency Department Start: 06-21-2025 End: 06-21-2025 Emergency department patient visit MICK LEUNG [facility] Emergency Department Start: 05-31-2025 End: 05-31-2025 ambulatory No Primary Care Physician -[facility] Start: 05-31-2025 End: 05-31-[address] Genesis Collazo MD -[facility] Start: 05-31-2025 End: 05-31-2025 ambulatory [facility] Facility:[facility] Start: 05-13-2025 End: 05-13-[address] Weston Gibbs MD -[facility] Start: 05-13-2025 End: 05-13-2025 ambulatory No Primary Care Physician -[facility] Start: 04-30-2025 End: 04-30-2025 Emergency department patient visit Kacie Mena DO Work Phone: [facility] Emergency Department Start: 04-26-2025 [facility] Start: 04-21-2025 End: 04-21-2025 Emergency department patient visit Dr. Ray Broussard MD Work Phone: -Emergency Department Work Phone: Start: 03-02-2025 End: 03-02-2025 Emergency department patient visit [facility] Start: 02-11-2025 End: 02-11-[address] Ray Broussard MD Work Phone: [facility] Work Phone: Start: 02-11-2025 End: 02-11-[address] Genesis Collazo MD -[facility] Start: 02-11-2025 End: 02-11-2025 ambulatory [facility] Facility[facility] Start: 01-05-2025 End: 01-05-2025 Emergency department patient visit Dr. Ray Broussard MD -Emergency Department Work Phone: Start: 01-01-2025 End: 01-01-[address] [facility] Start: 11-02-2024 End: 11-02-2024 Emergency department patient visit KRISTY RAMIREZ MD [facility] Start: 10-31-2024 End: 10-31-2024 Emergency department patient visit Kian Gaston MD Work Phone: [facility] Emergency Department Start: 09-09-2024 End: 09-09-2024 Emergency department patient visit [facility] Emergency [facility] Start: 09-04-2024 End: 09-04-2024 Emergency department patient visit PROVIDER NOT IN SYSTEM [facility] Start: 09-01-2024 End: 09-01-2024 ambulatory [facility] Start: 08-23-2024 End: 08-23-2024 Emergency department patient visit Eligio Milton MD Work Phone: [facility] Emergency Department Start: 08-12-2024 End: 08-12-[address] [facility] Start: 08-10-2024 End: 08-10-2024 ambulatory [facility] Start: 07-08-2024 End: 07-08-[address] [facility] Start: 07-01-2024 End: 07-01-[address] [facility] Start: 06-18-2024 End: 06-18-[address] [facility] Start: 06-18-2024 End: 06-18-2024 Encounter for general adult medical examination without abnormal findings MICK WILLAMS [facility] Start: 02-26-2024 End: 02-27-[address] ALEXA GRIGGS DO Facility:A Start: 02-26-2024 End: 02-26-2024 Patient encounter procedure COLTON BREWER CORRECTIONAL SERGEANT-FIBERGLASS TECHNICIAN [facility] Start: 02-14-2024 End: 02-14-[address] ALEXA GRIGGS DO Facility:A Start: 02-14-2024 End: 02-14-2024 SAME DAY STAY MIGUEL CHA MD [facility] Start: 02-03-2024 End: 02-04-[address] ALEXA GRIGGS DO Facility:A Start: 02-03-2024 End: 02-03-2024 Patient encounter procedure COLTON BREWER CORRECTIONAL SERGEANT-FIBERGLASS TECHNICIAN [facility] Start: 01-20-2024 End: 01-21-[address] ALEXA GRIGGS DO Facility:A Start: 01-20-2024 End: 01-20-2024 Patient encounter procedure COLTON BREWER CORRECTIONAL SERGEANT-FIBERGLASS TECHNICIAN [facility] Start: 01-16-2024 End: 01-16-[address] ALEXA GRIGGS DO Facility:A Start: 01-16-2024 End: 01-16-2024 SAME DAY STAY MIGUEL CHA MD [facility] Start: 01-13-[address] ALEXA GRIGGS DO Fac ility:A Start: 01-13-2024 End: 01-14-[address] ALEXA GRIGGS DO Facility:A Start: 01-13-2024 End: 01-13-2024 Admission to establishment MIGUEL CHA MD [facility] Start: 12-16-2023 End: 12-17-[address] ALEXA GRIGGS DO Facility:A Start: 12-16-2023 End: 12-16-2023 Patient encounter procedure MIGUEL CHA MD [facility] Start: 12-09-2023 End: 12-10-[address] ALEXA GRIGGS DO Facility:[facility] Start: 12-09-2023 End: 12-09-2023 ambulatory ALEXA GRIGGS Facility:[facility] Start: 12-09-2023 End: 12-09-2023 Patient encounter procedure MIGUEL CHA MD [facility] Start: 11-27-2023 End: 11-28-[address] ALEXA GRIGGS DO Facility:A Start: 11-27-2023 End: 11-27-2023 Patient encounter procedure MIGUEL CHA MD [facility] Start: 10-25-2023 End: 10-26-[address] ALEXA GRIGGS DO Facility:A Start: 10-25-2023 End: 10-25-2023 Patient encounter procedure BETO LEWIS MD [facility] Start: 10-07-2023 End: 10-07-[address] ALEXA GRIGGS DO Facility:A Start: 10-07-2023 End: 10-07-2023 Patient encounter procedure MIGUEL CHA MD [facility] Start: 09-23-2023 End: 09-24-[address] ALEXA GRIGGS DO Facility:A Start: 09-23-2023 End: 09-23-2023 Patient encounter procedure MIGUEL CHA MD [facility] Start: 09-13-2023 End: 09-13-2023 Emergency department patient visit DR ALEXA GRIGGS DO Facility:B Start: 09-13-2023 End: 09-13-2023 Emergency department patient visit ANAYVIRGIE SHERWIN DO [facility] Start: 09-13-2023 End: 09-13-2023 Emergency department patient visit CHARLENE MENARD MD [facility] Start: 09-10-2023 End: 09-11-2023 ambulatory MIGUEL CHA MD Facility:A Start: 09-10-2023 End: 09-11-2023 Observation MIGUEL CHA MD [facility] Start: 08-27-2023 End: 08-28-[address] ALEXA GRIGGS DO Facility:A Start: 08-15-[address] ALEXA GRIGGS DO Fac ility:B Start: 08-12-2023 End: 08-13-[address] ALEXA GRIGGS DO Facility:A Start: 06-24-2023 End: 06-25-[address] ALEXA GRIGGS DO Facility:B Start: 06-13-2023 End: 06-14-[address] ALEXA GRIGGS DO Facility:[facility] Start: 06-13-2023 End: 06-13-2023 Patient encounter procedure AV BERMUDEZ MD [facility] Start: 05-13-2023 End: 05-14-[address] ALEXA GRIGGS DO Facility:[facility] Start: 04-19-2023 End: 06-26-2023 ambulatory AV BERMUDEZ MD Facility:B Start: 04-19-2023 End: 06-26-2023 Physical therapy management AV BERMUDEZ MD [facility] Start: 04-15-2023 End: 04-16-[address] ALEXA GRIGGS DO Facility:[facility] Start: 03-08-2023 End: 03-08-[address] ALEXA GRIGGS DO [facility] Start: 03-08-2023 End: 03-08-2023 Well adult monitoring check done DR ALEXA GRIGGS DO [facility] Start: 07-24-2022 End: 07-24-2022 Emergency department patient visit Aristides Daly [facility] Emergency 05 Start: 07-23-2022 End: 07-23-2022 Emergency department patient visit [facility] Start: 06-11-2022 End: 06-11-2022 Office outpatient visit 25 minutes Katey Ramo Medina CORRECTIONAL SERGEANT-FIBERGLASS TECHNICIAN Work Phone: [facility] Comment on above: Myofascial pain (Amber tita Dx) Start: 05-26-2022 End: 05-26-2022 Emergency department patient visit Alexys Murcia MD Work Phone: [facility] Department Start: 05-15-2022 End: 05-15-2022 Office outpatient visit 25 minutes Katey Ralph Adam CORRECTIONAL SERGEANT-FIBERGLASS TECHNICIAN Work Phone: [facility] Comment on above: Compliance with medi cation regimen (Primary Dx); Chronic pain syndrome; Cervical facet syndrome; Occipital neuralgia of left side; Myofascial pain Start: 02-08-2022 End: 02-08-2022 Office outpatient visit 25 minutes Benji Kilgore MD Work Phone: [facility] Comment on above: Occipital neuralgia of left side (Primary Dx); Cervical facet syndrome; Myofascial pain; Cervical radiculopathy; Chronic pain syndrome; Sacroiliitis Start: 12-14-2021 End: 12-14-2021 Office outpatient visit 15 minutes Benji Kilgore MD Work Phone: [facility] Comment on above: Cervical radiculopat hy (Primary Dx); Polyneuropathy; Myofascial pain Start: 11-29-2021 End: 12-03-[address] AG MCGEE MD [facility] Start: 11-22-2021 End: 11-22-2021 Clinical Support Encounter Benji Kilgore MD Work Phone: [facility] Comment on above: Chronic pain syndrom e; Myofascial pain Start: 10-19-2021 End: 10-19-[address] ALEXA GRIGGS DO [facility] Start: 09-12-2021 End: 09-12-2021 Office outpatient visit 25 minutes Benji Kilgore MD Work Phone: [facility] Comment on above: Cervical facet syndr ome (Primary Dx); Cervical radiculopathy; Chronic pain syndrome; Right hip pain; Sacroiliitis Start: 05-26-2021 End: 05-26-2021 Patient encounter procedure Benji Kilgore MD Work Phone: [facility] Comment on above: Sacroiliitis (Primar y Dx) Start: 04-13-2021 End: 04-13-2021 Office outpatient visit 25 minutes Benji Kilgore MD Work Phone: [facility] Comment on above: Sacroiliitis (Primar y Dx); Right hip pain; Cervical radiculopathy; Chronic pain syndrome Start: 03-31-2021 End: 03-31-2021 Patient encounter procedure Benji Kilgore MD Work Phone: [facility] Comment on above: Cervical radiculopat hy (Primary Dx) Start: 02-06-2021 End: 02-06-2021 Office outpatient visit 15 minutes Brad Bustillo Work Phone: [facility] Comment on above: Degenerative disc di sease, cervical (Primary Dx); Neck pain (clinically improved from last visit) Start: 02-02-2021 End: 02-02-2021 Office outpatient visit 15 minutes Benji Kilgore Work Phone: [facility] Comment on above: Cervical radiculopat hy (Primary Dx); Neck pain; Bipolar affective disorder, remission status unspecified Start: 01-20-2021 End: 01-20-2021 Patient encounter procedure Benji Kilgore Work Phone: [facility] Comment on above: Cervical radiculopat hy (Primary Dx) Start: 01-12-2021 End: 01-12-2021 Office outpatient visit 25 minutes Benji Kilgore Work Phone: [facility] Comment on above: Cervical radiculopat hy (Primary Dx); Neck pain; Myofascial pain; Bipolar affective disorder, remission status unspecified Start: 12-30-2020 End: 12-30-2020 Patient encounter procedure Benij Kilgore Work Phone: [facility] Comment on above: Cervical radiculopat hy (Primary Dx) Start: 12-22-2020 End: 12-22-2020 Office outpatient new 45 minutes Benji Kilgore Work Phone: [facility] Comment on above: Cervical radiculopat hy (Primary Dx); Medication management; Cervicalgia; Neck pain; Bipolar 2 disorder Start: 11-29-2020 End: 11-29-2020 Office outpatient visit 25 minutes Brad Bustillo Work Phone: [facility] Comment on above: Left upper extremity numbness (Primary Dx); Degenerative disc disease, cervical; Cervical radiculopathy Start: 11-07-2020 End: 11-07-2020 Subsequent hospital visit by physician Brad Bustillo Work Phone: [facility] Comment on above: Arrived Start: 11-07-2020 End: 11-07-2020 Office outpatient new 30 minutes Brad Bustillo Work Phone: [facility] Comment on above: Neck pain (Primary D x); Acute pain of left shoulder; Left upper extremity numbness Start: 10-12-2020 End: 10-12-2020 Emergency department patient visit [facility] Start: 05-30-2020 End: 05-30-2020 Emergency department patient visit ADAM BENDER [facility] Start: 05-30-2020 End: 05-30-2020 Emergency department patient visit Edlay Bender Work Phone: [facility] Comment on above: Nonintractable heada keyla, unspecified chronicity pattern, unspecified headache type (Primary Dx); Chronic left shoulder pain Start: 05-11-2020 End: 05-12-2020 Emergency department patient visit Physician Stacy [facility] Comment on above: Acute chest wall danita n (Primary Dx); Upper respiratory tract infection, unspecified type Start: 02-24-2020 End: 02-24-2020 Patient encounter procedure Brenton Newell MD Work Phone: [facility] Work Phone: Start: 03-19-2019 End: 03-19-2019 Patient encounter procedure [facility] Facility:[facility] Start: 03-06-2019 End: 03-06-2019 Patient encounter procedure MARQUES SRIVASTAVA Facility:[facility] Start: 07-02-2018 End: 07-03-2018 Patient encounter Hannah Trammell Facility:[facility] Start: 07-02-2018 Patient encounter Facil [id number] Start: 06-24-2018 End: 06-25-2018 Patient encounter Hannah Trammell Facility:[facility] Start: 06-24-2018 Patient encounter Facil [id number] Start: 06-07-2018 End: 06-07-2018 Emergency department patient visit Larry Allen Facility:[place] Start: 12-31-2017 End: 01-01-2018 Patient encounter Eligio Gray Facility:[facility] Start: 10-25-2017 End: 10-26-2017 Patient encounter [facility]io [facility] Start: 09-18-2017 End: 09-19-2017 Patient encounter Eligio Gray Facility:[facility] Procedures Date Procedure Procedure Detail Performing Clinician Start: 07-08-2025 MRI of cervical spine Ulysses Mckee DO Work Phone: Start: 06-21-2025 Urinalysis, reagent strip without microscopy Larry Su MD Work Phone: Start: 06-21-2025 Urine drug screening Dhruv Su MD Work Phone: Start: 06-21-2025 Complete blood count with white cell differential, automated Larry Su MD Work Phone: Start: 06-21-2025 Comprehensive metabo lic panel Larry Su MD Work Phone: Start: 06-21-2025 Albumin serum plasma/whole blood Cristy Nimbuzz PA-C Work Phone: Start: 06-21-2025 Complete blood count with white cell differential, automated [employer] PA-C Work Phone: Start: 06-21-2025 Urinalysis, reagent strip without microscopy [employer] PA-C Work Phone: Start: 06-21-2025 Ct lumbar spine w/o contrast material Cristy Nimbuzz PA-C Work Phone: Start: 06-21-2025 Ct abdomen & pelvis w/o contrast material Cristy Min PA-C Work Phone: Start: 05-31-2025 [place] measurement No Primary Care Physician Start: 05-13-2025 X-ray of cervical spine No Primary Care Physician Start: 04-30-2025 Ct cervical spine w/ o contrast material Kacie Mena DO Work Phone: Start: 04-30-2025 Assay of troponin quantitative Kacie Mena DO Work Phone: Start: 04-30-2025 Ecg routine ecg w/le ast 12 lds w/i&r Kacie Mena DO Work Phone: Start: 04-21-2025 X-ray of cervical spine Dr. Ray Broussard MD Work Phone: Start: 02-11-[address] [place] Ray Broussard MD Work Phone: Start: 01-05-2025 Computed tomography of abdomen and pelvis with intravenous contrast Dr. Ray Broussard MD Work Phone: Start: 01-05-[address] Ray Broussard MD Work Phone: Start: 01-05-[address] Ray Broussard MD Work Phone: Start: 01-05-2025 Urnls dip stick/tabl et reagent auto microscopy Dr. Ray Broussard MD Work Phone: Start: 01-01-2025 Urinalysis [facility] Comment on above: Result Comment: URIN ALYSIS Performed By: #### [id number] #### [facility],[address] [place] [address] Start: 09-09-2024 Orthopantogram Altaf Monson CORRECTIONAL SERGEANT-FIBERGLASS TECHNICIAN Work Phone: Start: 08-23-2024 Ct abdomen & pelvis w/contrast material Larry Argueta CORRECTIONAL SERGEANT-FIBERGLASS TECHNICIAN Work Phone: Start: 08-23-2024 C-reactive protein Delaney Argueta CORRECTIONAL SERGEANT-FIBERGLASS TECHNICIAN Work Phone: Start: 08-23-2024 Complete blood count with white cell differential, automated Larry Argueta CORRECTIONAL SERGEANT-FIBERGLASS TECHNICIAN Work Phone: Start: 08-23-2024 Comprehensive metabo lic panel Larry Argueta CORRECTIONAL SERGEANT-FIBERGLASS TECHNICIAN Work Phone: Start: 02-14-2024 Neurostimulator julien ce in situ COLTON BREWER CORRECTIONAL SERGEANT-FIBERGLASS TECHNICIAN Comment on above: insertion of medtron ic neurostimulator Start: 10-07-2023 Epidural steroid injection MIGUEL CHA MD Start: 09-10-2023 Laminectomy and discectomy CHARLENE MENARD MD Comment on above: L5-S1 laminecomty,di scectomy, foraminotomy Start: 05-11-2020 Standard chest X-ray St augusto Jada Work Phone: Start: 05-11-2020 LAVENDER TOP Austinrama Jackson Work Phone: Start: 05-11-2020 LIGHT BLUE TOP Austin stoddard Work Phone: Start: 05-11-2020 LIGHT GREEN TOP Austin Elias Work Phone: Start: 05-11-2020 MINT GREEN TOP Austin davisKnowRe Work Phone: Start: 05-11-2020 RAINBOW DRAW Austin Jackson Work Phone: Start: 05-11-2020 12 lead ECG Austin Jackson Work Phone: Start: 05-11-2020 COVID-19, MOLECULAR Meño amanuel Jada Work Phone: Start: 05-11-2020 Streptococcus pyogen es Ag [Presence] in Throat Austin Elias Work Phone: Start: 02-24-2020 End: 02-24-2020 Blood pressure screening not performed - reason not given Brenton Newell MD Work Phone: Start: 02-24-2020 End: 02-24-2020 BMI outside of normal parameters - no follow-up plan/reason not given Brenton Newell MD Work Phone: Start: 02-24-2020 End: 02-24-2020 Documentation of current medications Brenton Newell MD Work Phone: Start: 02-24-2020 End: 02-24-2020 Pain assessment documented as positive - follow-up documented Brenton Newell MD Work Phone: Start: 02-24-2020 End: 02-24-2020 Pt tobacco screen rcvd tlk Brenton Newell MD Work Phone: Start: 11-04-2019 Excision of lipoma BIGG CHA MD Comment on above: abdominal wall Start: 11-04-2017 Shoulder region stru cture (body structure) DR ALEXA GRIGGS DO Comment on above: left Start: 11-04-2009 Wrist region structu re (body structure) DR ALEXA GRIGGS DO Comment on above: left Start: 11-04-2008 Rupture of anterior cruciate ligament (disorder) DR ALEXA GRIGGS DO Comment on above: right knee Colonoscopy MIGUEL CHA MD Loss of teeth due to extraction (disorder) MIGUEL CHA MD NEGATED: Highlighted rowStart: 02-24-2020 End: 02-24-2020 Documentation of current medications Leah Cabrales LPN NEGATED: Highlighted rowStart: 02-24-2020 End: 02-24-2020 Smoking cessation education Leah Cabrales LPN Plan of Treatment Date Care Activity Detail Author Start: 02-17-2030 Tetanus vaccination TETANUS [facility] Start: 07-05-2025 Influenza vaccination [facility] Start: 06-17-2025 PNEUMOCOCCAL VACCINE SERIES (2 of 2 - PCV) PNEUMOCOCCAL VACCINE SERIES (2 of 2 - PCV) [facility] Start: 05-13-2025 X-ray of cervical spine Cerv Spine 2 or 3 Views [facility] Start: 05-13-2025 XR Cervical spine 2 or 3 Views [facility] Start: 04-21-2025 [facility] Start: 01-05-2025 [facility] Start: 07-05-2024 COVID-19 VACCINE ( season) COVID-19 VACCINE ( season) [facility] Start: 07-05-2024 COVID-19 VACCINE ( season) COVID-19 VACCINE ( season) [facility] Start: 07-05-2024 Influenza vaccination INFLUENZA VACC INE (#1) [facility] Start: 2023 Lipid panel LIPID SCREENING [facility] Start: 07-20-2022 End: 07-20-2022 Patient encounter procedure 07/20/2022 Office Visit Anesthesiology Pain Mgt Katey Medina, CORRECTIONAL SERGEANT-FIBERGLASS TECHNICIAN [address] [id number] [facility] Start: 07-05-2022 Influenza vaccination [facility] Start: 07-03-2022 End: 07-03-2022 Patient encounter procedure 07/03/2022 Office Visit Anesthesiology Pain Mgt Benji Kilgore MD [address] [place] [address] [facility] Start: 06-11-2022 End: 06-11-2022 Patient encounter procedure 06/11/2022 Office Visit Anesthesiology Pain Mgt Katey Medina, CORRECTIONAL SERGEANT-FIBERGLASS TECHNICIAN [address] [facility] [place] [address] [facility] Start: 03-20-2022 End: 03-20-2022 Patient encounter procedure 03/20/2022 Office Visit Anesthesiology Pain Mgt Katey Medina, CORRECTIONAL SERGEANT-FIBERGLASS TECHNICIAN [address] [facility] [place] [address] [facility] Start: 03-06-2022 End: 03-06-2022 Patient encounter procedure 03/06/2022 Office Visit Anesthesiology Pain Mgt Benji Kilgore MD [address] [place] [address] [facility] Start: 12-01-2021 End: 12-01-2021 Patient encounter procedure 12/01/2021 Office Visit Anesthesiology Pain Mgt Katey Medina, CORRECTIONAL SERGEANT-FIBERGLASS TECHNICIAN [address] [facility] [place] [address] [facility] Start: 11-13-2021 End: 11-13-2021 Patient encounter procedure 11/13/2021 Office Visit Anesthesiology Pain Mgt Katey Medina, CORRECTIONAL SERGEANT-FIBERGLASS TECHNICIAN [address] [facility] [address] [facility] Start: 11-10-2021 End: 11-10-2021 Patient encounter procedure 11/10/2021 Office Visit Anesthesiology Pain Mgt Benji Kilgore MD [address] [place] [address] [facility] Start: 10-13-2021 End: 10-13-2021 Patient encounter procedure 10/13/2021 Office Visit Anesthesiology Pain Mgt Katey Medina, CORRECTIONAL SERGEANT-FIBERGLASS TECHNICIAN [address] [facility] [place] [address] [facility] Start: 10-11-2021 End: 10-11-2021 Patient encounter procedure 10/11/2021 Office Visit Anesthesiology Pain Mgt Benji Kilgore MD [address] [place] [id number] [place] [facility] Start: 07-05-2021 Influenza vaccination [facility] Start: 06-29-2021 End: 06-29-2021 Patient encounter procedure 06/29/2021 Office Visit Anesthesiology Pain Mgt Benji Kilgore MD [address] [place] [address] [phone] [facility] Start: 05-26-2021 End: 05-26-2021 Patient encounter procedure 05/26/2021 Office Visit Anesthesiology Pain MgBenji Mark MD [address] [place] [address] [phone] Le[facility] Start: 05-18-2021 End: 05-18-2021 Office Visit 05/18/2021 Office Visit Anesthesiology Pain MgBenji Mark MD [address] [place] [address] [phone] [facility] Start: 05-05-2021 End: 05-05-2021 Office Visit 05/05/2021 Office Visit Anesthesiology Pain Mgt Benji Kilgore MD [address] [place] [address] [phone] [facility] Procedural Pain Management Start: 04-13-2021 End: 04-13-2022 Diagnostic radiography of lumbar spine XR LUMBAR SPINE BENDING ONLY 4+ VW Imaging Routine Sacroiliitis Expected: 04/13/2021, Expires: 04/13/2022 [facility] Comment on above: Expected: 04/13/2021 , Expires: 04/13/2022 Start: 04-13-2021 End: 04-13-2021 Patient encounter procedure 04/13/2021 Office Visit Anesthesiology Pain Benji Diaz MD [address] [place] [address] [phone] [facility] Start: 02-06-2021 End: 02-06-2021 Office Visit 02/06/2021 Office Visit Orthopaedics Brad Bustillo, DO [address] [place] [address], [place] [address] [facility] Start: 02-02-2021 End: 02-02-2021 Office Visit 02/02/2021 Office Visit Anesthesiology Pain MgBenji Mark MD [address] [place] [address] [phone] [facility] Start: 01-31-2021 End: 01-31-2021 Office Visit 01/31/2021 Office Visit OrthopaedicBrad Kumar, DO [address] [place] [address], [place] [address] [facility] Start: 01-20-2021 End: 01-20-2021 Office Visit 01/20/2021 Office Visit Anesthesiology Pain Benji Diaz MD [address] [place] [phone] [facility] Procedural Pain Management Start: 01-12-2021 End: 01-12-2021 Office Visit 01/12/2021 Office Visit Anesthesiology Pain Mgt Benji Kilgore MD [address] [place] [address] [phone] [facility] Start: 12-30-2020 End: 12-30-2020 Office Visit 12/30/2020 Office Visit Anesthesiology Pain Mgt Benji Kilgore MD [address] [place] [address] [phone] [facility] Procedural Pain Management Start: 12-16-2020 End: 12-16-2020 Rehab Services Visit 12/16/2020 Rehab Services Visit Physical Therapy Brad Bustillo, DO [address] [place] [address] [phone] Dereck Restrepo, PT [address] [facility] [place] [phone] [facility] Start: 12-13-2020 End: 12-13-2020 Rehab Services Visit 12/13/2020 Rehab Services Visit Physical Therapy Brad Bustillo, DO [address] [place] [address] [phone] Dereck Restrepo, PT [address] [facility] [place] [address] [phone] [facility] [place] Start: 12-12-2020 End: 12-12-2020 Office Visit 12/12/2020 Office Visit Physical Medicine & Rehabilitation Zach Webb MD [address] [place], [place] [phone] [facility] Start: 11-29-2020 End: 11-29-2020 Office Visit 11/29/2020 Office Visit Orthopaedics Brad Bustillo, DO [address] [place] [address] [phone] [facility] Start: 11-22-2020 End: 11-22-2020 Office Visit 11/22/2020 Office Visit Physical Medicine & Rehabilitation Zach Webb MD [facility] [place] [address] [phone] [facility] [place] Start: 11-07-2020 End: 11-07-2021 Radiography of cervical spine [facility] Comment on above: 1 Occurrences starti ng 11/07/2020 until 11/07/2020 Expected: 11/07/2020 , Expires: 11/07/2021 Start: 11-07-2020 End: 11-07-2021 Radiography of shoulder [facility] Comment on above: 1 Occurrences starti ng 11/07/2020 until 11/07/2020 Expected: 11/07/2020 , Expires: 11/07/2021 Start: 07-05-2020 Influenza vaccination INFLUENZA VACC INE (#1) [facility] Start: 07-05-2020 Influenza vaccinatio n given Sequential Influenza Vaccine (#1) [facility] Start: 02-24-2020 End: 02-24-2020 Appointment Appointment [facility] Work Phone: Start: 2010 HPV VACCINE (1 - 3-dose SCDM series) HPV VACCINE (1 - 3-dose SCDM series) [facility] Start: 2002 Hepatitis B vaccination HEP B VACCINE (1 of 3 - 19+ 3-dose series) [facility] Start: 2002 Third diphtheria, tetanus and acellular pertussis (DTaP) vaccination TDAP (ADULT) [facility] Start: 2001 Hepatitis C antibody , confirmatory test Hepatitis C Screening [facility] Start: 2001 Tetanus vaccination TETANUS [facility] Start: 1999 COVID-19 VACCINE (1) COVID-19 VACCIN E (1) [facility] Start: 1998 HIV screening [facility] Start: 1996 HIV screening HIV SCREENING DISCUSSI ON [facility] Start: 1995 COVID-19 VACCINE (1) COVID-19 VACCIN E (1) [facility] Start: 1989 PNEUMOCOCCAL VACCINE SERIES (1 - PCV) PNEUMOCOCCAL VACCINE SERIES (1 - PCV) [facility] Start: 1989 PNEUMOCOCCAL VACCINE SERIES (1 of 2 - PPSV23) PNEUMOCOCCAL VACCINE SERIES (1 of 2 - PPSV23) [facility] Start: 1988 COVID-19 VACCINE (1) COVID-19 VACCIN E (1) [facility] Start: 1986 History and physical examination, annual for health maintenance Wellness Visit [facility] Start: 1983 COVID-19 VACCINE (#1) COVID-19 VACCI NE (#1) [facility] Start: 1983 Hepatitis C antibody , confirmatory test HEPATITIS C VIRUS SCREENING [facility] Start: 1983 Hepatitis C screening HEPATITI S C VIRUS SCREENING [facility] Start: 1983 Tetanus vaccination Tetanus: Every 1 0yrs [facility] MR Cervical spine [facility] Patient Education [facility] Work Phone: Patient referral [facility] Work Phone: Radiography of cervical spine XR SPINE CERVICAL WITH OBL AND FLEX/EXT Imaging Routine Neck pain 11/07/2020 9:53 AM [facility] Radiography of shoulder XR SHOULDER LEFT MIN 2 VIEWS Imaging Routine Acute pain of left shoulder 11/07/2020 9:53 AM [facility] End: 05-11-2020 S. pyogenes Org specific cx Ql (Throat) Strep A Culture, Throat Microbiology ISAAC Once for 1 Occurrences starting 05/11/2020 until 05/11/2020, 1 completed [facility] Comment on above: Once for 1 Occurrenc es starting 05/11/2020 until 05/11/2020, 1 completed S. pyogenes Org specific cx Ql (Throat) Strep A Culture, Throat Microbiology Routine 05/11/2020 10:35 PM EDT [facility] Standard ECG ECG ECG STAT 12:35 AM EDT [facility] Therapeutic prophylactic/dx injection subq/im AL THER PROPH/DX NJX SUBQ/IM AL - OFFICE PERFORMED Routine Neck pain Acute pain of left shoulder Left upper extremity numbness Ordered: 11/07/2020 [facility] Comment on above: Ordered: 11/07/2020 Immunizations Immunization Date Immunization Notes Care Provider Ameena yan 02-18-2020 tetanus toxoid, redu canelo diphtheria toxoid, and acellular pertussis vaccine, adsorbed [facility] 06-07-2018 tetanus toxoid, redu canelo diphtheria toxoid, and acellular pertussis vaccine, adsorbed [facility] 08-12-2013 influenza, seasonal, injectable [facility] 08-12-2013 influenza virus vacc ine, unspecified formulation [facility] Payers Date Payer Category Payer Medicare (Managed Care) MEDICARE ANTH HMO [id number] 2025 Self-pay [id number] 2023 Private Health Insurance [id number] 2022 Medicaid [id number] 2022 Medicare [id number] 2021 Medicare MEDICARE ANTHEM HMO OR PPO MEDICARE ANTHEM HMO OR PPO [id number] 2021-Present [address] [place] [address] [id number] 2021 Medicare [id number] [id number] .7.3.369516.315 2021 Unknown [id number] 2020 Medicaid [id number] .[id number] 2020 Medicaid [id number]. 1.13.172.2 .7.3.779593.315 2020 Medicare [id number] .7.3.264665.315 2017 Unknown 2015 Unknown MMO MED MUTUAL S UPERMED PPO [id number] 2015-Present [id number] .7.3.693685.315 2011 Unknown [id number] 1983 Unknown [id number] 2.1.489659.3.579.2 .278 1983 Unknown [id number] .1.622200.3.579.2 .278 1983 Unknown [id number] .1.790570.3.579.2 .278 1983 Unknown [id number] .1.644032.3.579.2 .1069 1983 Unknown [id number] .1.922010.3.579.2 .903 1983 Unknown [id number] .1.668475.3.579.2 .1983 Unknown [id number] .1.546964.3.579.2 .627 1983 Unknown [id number] .1.553215.3.579.2 .62 1983 Unknown [id number] .1.497446.3.579.2 .627 1983 Unknown [id number] .1.988968.3.579.2 .627 1983 Unknown [id number] .1.476135.3.579.2 .1983 Unknown [id number] .1.714903.3.579.2 .1983 Unknown [id number] 12.20.830.1.525685.3.579.2 .1983 Unknown [id number] 12.20.830.1.973842.3.579.2 .1983 Unknown [id number] .1.409480.3.579.2 .1983 Unknown [id number] .1.301395.3.579.2 .1983 Unknown [id number] .1.634126.3.579.2 1983 Unknown [id number] .1.349027.3.579.2 .1983 Unknown [id number] .1.164858.3.579.2 .1983 Unknown [id number] .1.464161.3.579.2 .1983 Unknown [id number] .1.798377.3.579.2 .1983 Unknown [id number] .1.633142.3.579.2 .1983 Unknown [id number] .1.667025.3.579.2 .1983 Unknown [id number] .1.568494.3.579.2 .1983 Unknown [id number] .1.711892.3.579.2 .1983 Unknown [id number] .1.121812.3.579.2 1983 Unknown [id number] 840.1.208732.3.579.2 .62 1983 Unknown [id number] 12.20.830.1.668050.3.579.2 1983 Unknown [id number] 840.1.141901.3.579.2 1983 Unknown [id number] .1.759297.3.579.2 1983 Unknown [id number] .1.983438.3.579.2 1983 Unknown [id number] .1.576866.3.579.2 1983 Unknown [id number] .1.150903.3.579.2 .594 1983 Unknown [id number] .1.838829.3.579.2 1983 Unknown [id number] .1.642737.3.579.2 1983 Unknown [id number] .1.127033.3.579.2 1983 Unknown [id number] .1.750505.3.579.2 .65 1983 Unknown [id number] .1.184031.3.579.2 65 1983 Unknown [id number] .1.432114.3.579.2 .65 1983 Unknown [id number] 12.20.830.1.832278.3.579.2 65 1983 Unknown [id number] 840.1.141866.3.579.2 .65 1983 Unknown [id number] 840.1.463199.3.579.2 651 1983 Unknown [id number] 2.840.1.686683.3.579.2 .983 1983 Unknown [id number] 2.840.1.157027.3.579.2 .983 1983 Unknown [id number] 2.840.1.944875.3.579.2 .983 1983 Unknown [id number] 2.0.1.884594.3.579.2 .983 1983 Unknown [id number] .0.1.058990.3.579.2 .983 1983 Unknown [id number] 2.0.1.787792.3.579.2 .902 1983 Unknown [id number] 2.0.1.826496.3.579.2 .902 1983 Unknown [id number] ..1.522390.3.579.2 .902 Medicare . Self-pay [id number] Unknown [id number] 2.0.1.470936.3.579.2 .462 Unknown [id number] .0.1.871404.3.579.2 .462 Unknown [id number] .0.1.875871.3.579.2 .462 Unknown [id number] 840.1.443638.3.579.2 .462 Unknown [id number] 2.0.1.879436.3.579.2 .462 Unknown [id number] 2.840.1.703753.3.579.2 .462 Unknown [id number] 2.840.1.696631.3.579.2 .462 Unknown [id number] 2.840.1.058972.3.579.2 .462 Unknown [id number] 2.16.840.1.195883.3.579.2 .462 Unknown [id number] 2.16.840.1.917788.3.579.2 .462 Social History Date Type Detail Facility Start: 05-11-2020 End: 05-11-2025 Tobacco smoking status NHIS Current every day smoker [facility] Start: 05-11-2020 End: 06-21-2025 Cigarettes smoked current (pack per day) - Reported [facility] Start: 05-11-2020 End: 06-22-2025 Alcohol intake Current drinker of alcohol (finding) [facility] Start: 05-11-2020 Alcohol Comment occational [facility] Start: 1985 Sex Assigned At [facility] Exposure to SARS-CoV-2 (event) Not sure [facility] Start: 05-30-2020 Alcohol Comment SOCIALLY [facility] History of tobacco use Cigarette Smoker [facility] Start: 10-12-2020 End: 04-13-2021 Tobacco use and exposure Current user [facility] Start: 10-12-2020 End: 11-22-2021 Alcohol intake Ex-drinker (finding) [facility] Start: 01-16-2021 Heavy tobacco smoker (finding) [facility] Sex Assigned At [facility] Start: 05-26-2022 History SDOH Alcohol Comment rarely [facility] Tobacco smoking consumption unknown [facility] Start: 02-26-2023 End: 01-13-2024 Tobacco smoking status Light tobacco smoker (finding) [facility] [place] Comment on above: history of 1.5 ppd Start: 08-23-2024 End: 06-21-2025 Tobacco use panel [facility] Start: 11-09-2016 End: 02-17-2025 Sex Male (finding) [facility] Start: 03-27-2021 [facility]igarettes [facility]ig[facility] Start: 1985 [facility]igned At [facility] Start: 06-21-2025 Tobacco use and exposure Former smokeless tobacco user [facility] How often to you hav e a drink containing alcohol? Never [facility] How many standard drinks containing alcohol do you have on a typical day? Patient does not drink [facility] NEGATED: Highlighted rowStart: 02-24-2020 End: 02-24-2020 Alcohol use Alcohol use [facility] Work Phone: NEGATED: Highlighted rowStart: 02-24-2020 End: 02-24-2020 Assertion Current every day smoker [facility] Work Phone: NEGATED: Highlighted rowStart: 02-24-2020 End: 02-24-2020 Details of drug misuse behavior Details of drug misuse behavior [facility] Work Phone: NEGATED: Highlighted rowStart: 02-24-2020 End: 02-24-2020 How many days of moderate to strenuous exercise, like a brisk walk, did you do in the last 7 days? How many days of moderate to strenuous exercise, like a brisk walk, did you do in the last 7 days? [facility] Work Phone: NEGATED: Highlighted rowStart: 02-24-2020 End: 02-24-2020 Tobacco use and exposure Tobacco use and exposure [facility] Work Phone: Medical Equipment Procedure Code Equipment Code Equipment Origin al Text Equipment Identifier Dates Spinal Cord Stim ulator Percutaneous Unknown 01/16/24 Unknown Unknown FDA Start: 01-16-2024 Spinal Cord Stim ulator Percutaneous Unknown 01/16/24 Unknown Unknown FDA Start: 01-16-2024 Spinal Cord Stim ulator Percutaneous Unknown 01/16/24 Unknown Unknown FDA Start: 01-16-2024 Spinal Cord Stim ulator Percutaneous Unknown 01/16/24 Unknown Unknown FDA Start: 01-16-2024 Spinal Cord Stim ulator Percutaneous Unknown 02/14/24 Unknown Unknown FDA Start: 02-14-2024 Spinal Cord Stim ulator Percutaneous Unknown 02/14/24 Unknown Unknown FDA Start: 02-14-2024 Spinal Cord Stim ulator Percutaneous Unknown 02/14/24 Unknown Unknown FDA Start: 02-14-2024 Spinal Cord Stim ulator Percutaneous Unknown 01/16/24 Unknown Unknown FDA Start: 01-16-2024 Spinal Cord Stim ulator Percutaneous Unknown 02/14/24 Unknown Unknown FDA Start: 02-14-2024 Spinal Cord Stim ulator Percutaneous Unknown 02/14/24 Unknown Unknown FDA Start: 02-14-2024 Spinal Cord Stim ulator Percutaneous Unknown 02/14/24 Unknown Unknown FDA Start: 02-14-2024 Spinal Cord Stim ulator Percutaneous Unknown 01/16/24 Unknown Unknown FDA Start: 01-16-2024 Spinal Cord Stim ulator Percutaneous Unknown 02/14/24 Unknown Unknown FDA Start: 02-14-2024 Spinal Cord Stim ulator Percutaneous Unknown 02/14/24 Unknown Unknown FDA Start: 02-14-2024 Spinal Cord Stim ulator Percutaneous Unknown 02/14/24 Unknown Unknown FDA Start: 02-14-2024 Functional Status Date Assessment Result Facility 06-21-2025 Total score [AUDIT-C] 0 06/21/20 25 9:19 AM Jaci Tang RN [facility] 02-14-2024 Functional Status Awake, Resting [facility] 02-14-2024 Functional Status Repositions self [facility] 02-14-2024 Functional Status Maintained [facility] 01-16-2024 Functional Status Maintained [facility] 01-13-2024 Functional Status Sensory Deficits None A [facility] 10-07-2023 Functional Status ID band on, Allergy Band on [facility] 09-13-2023 Functional Status Independent [facility] 09-13-2023 Functional Status Standard Safet y ID band on, Call device within reach, Bed in low position, Wheels locked, Safety level maintained [facility] 09-11-2023 Functional Status Room check performed [facility] 09-11-2023 Functional Status [facility] 09-11-2023 Functional Status [facility] 09-10-2023 Functional Status [facility] 09-10-2023 Functional Status Sitting on edge of bed [facility] 09-10-2023 Functional Status Multilevel home [facility] 09-10-2023 Functional Status bilateral knee high applied/on [facility] 09-10-2023 Functional Status Maintained [facility] Mental Status Date Assessment Result Facility 02-14-2024 Mental Status Orientation Oriented x 4 [facility] 02-14-2024 Mental Status [facility] 01-16-2024 Mental Status Oriented x 4 [facility] 01-16-2024 Mental Status [facility] 10-07-2023 Mental Status Orientation Oriented x 4 [facility] 09-13-2023 Mental Status Orientation Oriented x 4 [facility] 09-13-2023 Mental Status [facility] 09-11-2023 Mental Status Oriented x 4 [facility] 09-11-2023 Mental Status [facility] 09-10-2023 Mental Status [facility] Clinical Notes 01-16-2021 to 06-22-2025 Vasyl Altamirano RN - 06/22/2025 12:52 AM Kumar Altamirano RN - 06/22/2025 12:52 AM Alessio Su MD - 06/21/2025 11:33 PM Alessio Su MD - 06/21/2025 11:33 PM EDT Note Date & Type Note Facility 06-22-2025 Emergency departm ent Note Reviewed discharge instructions with patient, pharmacy verified and prescriptions reviewed, discussed follow up instructions, verbalized understanding of all teaching, no other questions or concerns at this time. [facility] 06-22-2025 Emergency departm ent Note Reviewed discharge instructions with patient, pharmacy verified and prescriptions reviewed, discussed follow up instructions, verbalized understanding of all teaching, no other questions or concerns at this time. Emergency Department Report [facility] Service Date:.06/22/25 PCP: Mick Leung Chief Complaint: Chief Complaint Patient presents with Abdominal Pain Pt presents with dx of pancreatitis, seen earlier today. Told to return if pain gets worse, which he states that it has gotten worse. Taking Percocet for pain at home, last taken @ 4 hours ago. HPI Ajit Zhu is a 40 y.o. male presents to the ED today due to left lower back pain. Patient was seen earlier today with similar symptoms. The patient has a spinal stimulator for his chronic pain. He was given Percocet which was not helping his pain. The pain is localized to the lower back to the left of the midline. Denies any new injury. Patient has a slightly elevated lipase but did not have any CT evidence of pancreatitis and does not complaining any of abdominal pain. Denies any nausea vomiting or diarrhea. Review of Systems: Review of Systems Constitutional: Negative for fatigue and fever. Neurological: Negative for weakness. Hematological: Does not bruise/bleed easily. Past Medical History: Past Medical History[1] Past Surgical History: Past Surgical History[2] Allergies: Allergies[3] Medications: Discharge Medication List as of 06/22/2025 12:25 AM CONTINUE these medications which have CHANGED Details Cyclobenzaprine 10 MG tablet Take 1 tablet by mouth 3 times daily as needed for Muscle spasms. Normal Disp-21 tablet, R-0 CONTINUE these medications which have NOT CHANGED Details amitriptyline 50 MG tablet Take 1-2 tablets by mouth at bedtime. Historical Med buPROPion 150 MG tablet SR Historical Med chlorhexidine 0.12 % Solution oral solution Rinse mouth with 15mL for 30sec then spit BID Normal Disp-118 mL, R-0 cloNIDine 0.1 MG tablet Take 1 tablet by mouth 2 times daily. Historical Med diclofenac sodium [address] Take 1 tablet by mouth 2 times daily. Normal Disp-60 tablet, R-2 gabapentin 600 MG tablet Take 1 tablet by mouth 3 times daily for 5 days. Normal Disp-15 tablet, R-0 lamoTRIgine 150 MG tablet TAKE 1 TABLET BY MOUTH IN THE MORNING Historical Med [place] 300 MG capsule Take 1 capsule by mouth 2 times daily. Historical Med meloxicam 15 MG tablet Take 1 tablet by mouth daily. Normal Disp-30 tablet, R-2 omepraz[address] capsule Take 20 mg by mouth daily. Historical Med oxyCODONE-acetaminophen 5-325 MG per tablet Take 1 tablet by mouth every 8 hours as needed for up to 3 days. Normal Disp-9 tablet, R-0Prescribe no greater than 7 days (adult) or 5 days (minor) for acute pain unless justification documented in chart predniSONE 20 MG tablet Take 3 tablets by mouth daily every morning. 3 TABS X 5 DAYS Normal Disp-15 tablet, R-0 pregabalin 25 MG capsule Take 1 capsule by mouth at bedtime for 14 days. Then stop. This is a weaning prescription. Normal Disp-14 capsule, R-0 tiZANidine 4 MG tablet Take 1 tablet by mouth 3 times daily for 5 days. Normal Disp-15 tablet, R-0 Family History: History reviewed. No pertinent family history. Social History: Social History Socioeconomic History Marital status: Single Spouse name: Not on file Number of children: Not on file Years of education: Not on file Highest education level: Not on file Occupational History Not on file Tobacco Use Smoking status: Every Day Current packs/day: 0.50 Types: Cigarettes Smokeless tobacco: Former Vaping Use Vaping status: Every Day Substance and Sexual Activity Alcohol use: Yes Comment: rarely Drug use: Never Sexual activity: Not on file Other Topics Concern Not on file Social History Narrative Not on file Social Drivers of Health Financial Resource Strain: Not on file Food Insecurity: Not on file Transportation Needs: Not on file Physical Activity: Not on file Stress: Not on file Social Connections: Not on file Personal Safety: Not on file Housing Stability: Not on file Physical Exam: Physical Exam Vitals and nursing note reviewed. Constitutional: Appearance: He is well-developed. HENT: Head: Normocephalic and atraumatic. Mouth/Throat: Mouth: Mucous membranes are moist. Pharynx: Oropharynx is clear. Cardiovascular: Rate and Rhythm: Normal rate and regular rhythm. Heart sounds: Normal heart sounds. Pulmonary: Effort: Pulmonary effort is normal. Breath sounds: Normal breath sounds. Abdominal: General: Bowel sounds are normal. Tenderness: There is no abdominal tenderness. Musculoskeletal: Lumbar back: Tenderness present. Back: Skin: General: Skin is warm. Capillary Refill: Capillary refill takes less than 2 seconds. Neurological: General: No focal deficit present. Mental Status: He is alert and oriented to person, place, and time. Psychiatric: Mood and Affect: Mood normal. Behavior: Behavior normal. Vital Signs During ED Visit Patient Vitals for the past 24 hrs: BP Temp Temp src Pulse Resp SpO2 Weight 06/22/25 0028 115/59 -- -- 84 18 97 % -- 06/21/255 -- -- -- -- -- -- 100.7 kg (222 lb) 06/21/25 222 141/79 97.4 F (36.3 C) Oral 81 16 96 % -- Orders/Results: Orders Placed This Encounter TOXICOLOGY DRUG SCREEN, URINE COMPREHENSIVE METABOLIC PANEL CBC, EDIF, PLATELET MAGNESIUM LIPASE LACTATE, BLOOD HYDROmorphone (DILAUDID) injection 1 mg Ondansetron 4mg/2ml (ZOFRAN) injection 4 mg Cyclobenzaprine 10 MG tablet HYDROmorphone (DILAUDID) injection 1 mg URINALYSIS, MACRO Results for orders placed or performed during the hospital encounter of 06/21/25 TOXICOLOGY DRUG SCREEN, URINE Result Value Ref Range Amphetamines, Urine, Screen NEGATIVE NEGATIVE NG/ML Methamphetamine NEGATIVE NEGATIVE NG/ML Barbiturates NEGATIVE NEGATIVE NG/ML Benzodiazepines NEGATIVE NEGATIVE NG/ML Cocaine NEGATIVE NEGATIVE NG/ML Methadone Metabolite NEGATIVE NEGATIVE NG/ML Opiates, Urine Screen NEGATIVE NEGATIVE NG/ML Tricyclic Antidepressants, Urine POSITIVE (A) NEGATIVE NG/ML Cannabinoids (Marijuana) NEGATIVE NEGATIVE NG/ML Oxycodone Confirmation POSITIVE (A) NEGATIVE NG/ML Buprenorphine NEGATIVE NEGATIVE NG/ML Fentanyl NEGATIVE NEGATIVE NG/ML COMPREHENSIVE METABOLIC PANEL Result Value Ref Range Glucose 106 (H) 70 - 100 MG/DL BUN 13 7 - 20 mg/dL CREATININE SERUM 1.10 0.70 - 1.20 mg/dL SODIUM 137 137 - 145 MMOL/L Potassium 4.0 3.5 - 5.1 MMOL/L CHLORIDE 105 98 - 107 MMOL/L CALCIUM 9.5 8.4 - 10.2 mg/dL PROTEIN, TOTAL 6.8 6.3 - 8.2 g/dL Albumin 4.0 3.5 - 5.0 g/dL BILIRUBIN, TOTAL 0.4 0.2 - 1.3 mg/dL AST 38 17 - 59 U/L ALKALINE PHOSPHATASE 88 38 - 126 U/L CARBON DIOXIDE (CO2) 26 22 - 30 MMOL/L A/G Ratio 1.4 RATIO ALT 49 <50 U/L ESTIMATED GFR 78 ml/min/1.73sq.m GFR COMMENT Average GFR for 40-49 years old = 99. CBC, EDIF, PLATELET Result Value Ref Range WBC (WHITE BLOOD COUNT) 10.4 3.6 - 11.0 10*3/uL RBC 4.80 4.0 - 6.1 10*6/uL HEMOGLOBIN (HGB) 15.9 14.0 - 18.0 G/DL HEMATOCRIT (HCT) 45.6 42.0 - 52.0 % Mean Cell Volume 95.0 80.0 - 100.0 FL Mean Cell HGB 33.1 26.0 - 35.0 PG Mean Cell HGB Concentration 34.8 27.0 - 37.0 G/DL RBC Distribution 13.1 11.5 - 14.5 % PLATELET COUNT 197 130 - 400 10*3/uL Mean Platelet Volume 9.8 7.4 - 11.0 FL DIFFERENTIAL TYPE AUTO DIFF % NEUTROPHILS 57.2 37.0 - 75.0 % LYMPHOCYTE 30.4 20.0 - 55.0 % MONOCYTE % 8.4 0.0 - 10.0 % EOSINOPHIL % 3.4 0.0 - 11.0 % BASOPHIL % 0.6 0.0 - 2.0 % Absolute Neutrophil Count 6.0 1.4 - 6.5 10*3/uL LYMPHOCYTES, ABSOLUTE 3.2 1.2 - 3.4 10*3/uL MONOCYTES, ABSOLUTE 0.9 (H) 0.0 - 0.7 10*3/uL ABSOLUTE EOSINOPHIL COUNT 0.4 0.0 - 0.7 10*3/uL ABSOLUTE BASOPHIL COUNT 0.1 0.0 - 0.2 10*3/uL MAGNESIUM Result Value Ref Range MAGNESIUM 2.0 1.6 - 2.3 MG/DL LIPASE Result Value Ref Range LIPASE 156 23 - 300 U/L LACTATE, BLOOD Result Value Ref Range LACTATE 1.4 0.7 - 2.0 mmol/L URINALYSIS, MACRO Result Value Ref Range Color, Urine YELLOW YELLOW Appearance, Urine CLEAR CLEAR Specific [place], Urine 1.020 1.010 - 1.025 PH URINE 6.5 5.0 - 7.0 Urine Protein NEGATIVE NEGATIVE mg/dl Glucose, Urine NEGATIVE NEGATIVE mg/dl Ketones, Urine NEGATIVE NEGATIVE mg/dl BILIRUBIN, URINE NEGATIVE NEGATIVE BLOOD, URINE DIPSTICK NEGATIVE NEGATIVE Nitrites, Urine NEGATIVE NEGATIVE Urobilinogen, Urine 0.2 0.2 - 1.0 E.U./dL Leukocyte esterase, Urine NEGATIVE NEGATIVE Radiographic Imaging No orders to display Procedures: Procedures Moderate Sedation Procedure: No ED Summary/MDM Medical Decision Making Amount and/or Complexity of Data Reviewed Labs: ordered. Risk Prescription drug management. Risk Details: Patient's acute pain was controlled with IV Dilaudid. He has a prescription for Percocet at home I will send him a prescription for Flexeril. He can call his pain management doctor today for follow up. Clinical Impression: 1. Acute on chronic low back pain No follow-ups on file. Discharge Medication List as of 06/22/2025 12:25 AM Discharge Medication List as of 06/22/2025 12:25 AM An After Visit Summary was printed and given to the patient with above information. . . [1] Past Medical History: Diagnosis Date Bipolar disorder [2] Past Surgical History: Procedure Laterality Date KNEE SURGERY Right ORIF WRIST Left SHOULDER SURGERY Left [3] No Known Allergies Larry Su MD 06/22/25 0136 documented in this encounter [facility] 06-21-2025 Physician Emergen cy department Note Emergency Department Report [facility] Service Date:.06/22/25 PCP: Mick Leung Chief Complaint: Chief Complaint Patient presents with Abdominal Pain Pt presents with dx of pancreatitis, seen earlier today. Told to return if pain gets worse, which he states that it has gotten worse. Taking Percocet for pain at home, last taken @ 4 hours ago. RENATO Zhu is a 40 y.o. male presents to the ED today due to left lower back pain. Patient was seen earlier today with similar symptoms. The patient has a spinal stimulator for his chronic pain. He was given Percocet which was not helping his pain. The pain is localized to the lower back to the left of the midline. Denies any new injury. Patient has a slightly elevated lipase but did not have any CT evidence of pancreatitis and does not complaining any of abdominal pain. Denies any nausea vomiting or diarrhea. Review of Systems: Review of Systems Constitutional: Negative for fatigue and fever. Neurological: Negative for weakness. Hematological: Does not bruise/bleed easily. Past Medical History: Past Medical History[1] Past Surgical History: Past Surgical History[2] Allergies: Allergies[3] Medications: Discharge Medication List as of 06/22/2025 12:25 AM CONTINUE these medications which have CHANGED Details Cyclobenzaprine 10 MG tablet Take 1 tablet by mouth 3 times daily as needed for Muscle spasms. Normal Disp-21 tablet, R-0 CONTINUE these medications which have NOT CHANGED Details amitriptyline 50 MG tablet Take 1-2 tablets by mouth at bedtime. Historical Med buPROPion 150 MG tablet SR Historical Med chlorhexidine 0.12 % Solution oral solution Rinse mouth with 15mL for 30sec then spit BID Normal Disp-118 mL, R-0 cloNIDine 0.1 MG tablet Take 1 tablet by mouth 2 times daily. Historical Med diclofenac sodium [address] Take 1 tablet by mouth 2 times daily. Normal Disp-60 tablet, R-2 gabapentin 600 MG tablet Take 1 tablet by mouth 3 times daily for 5 days. Normal Disp-15 tablet, R-0 lamoTRIgine 150 MG tablet TAKE 1 TABLET BY MOUTH IN THE MORNING Historical Med [place] 300 MG capsule Take 1 capsule by mouth 2 times daily. Historical Med meloxicam 15 MG tablet Take 1 tablet by mouth daily. Normal Disp-30 tablet, R-2 omeprazole [address] capsule Take 20 mg by mouth daily. Historical Med oxyCODONE-acetaminophen 5-325 MG per tablet Take 1 tablet by mouth every 8 hours as needed for up to 3 days. Normal Disp-9 tablet, R-0Prescribe no greater than 7 days (adult) or 5 days (minor) for acute pain unless justification documented in chart predniSONE 20 MG tablet Take 3 tablets by mouth daily every morning. 3 TABS X 5 DAYS Normal Disp-15 tablet, R-0 pregabalin 25 MG capsule Take 1 capsule by mouth at bedtime for 14 days. Then stop. This is a weaning prescription. Normal Disp-14 capsule, R-0 tiZANidine 4 MG tablet Take 1 tablet by mouth 3 times daily for 5 days. Normal Disp-15 tablet, R-0 Family History: History reviewed. No pertinent family history. Social History: Social History Socioeconomic History Marital status: Single Spouse name: Not on file Number of children: Not on file Years of education: Not on file Highest education level: Not on file Occupational History Not on file Tobacco Use Smoking status: Every Day Current packs/day: 0.50 Types: Cigarettes Smokeless tobacco: Former Vaping Use Vaping status: Every Day Substance and Sexual Activity Alcohol use: Yes Comment: rarely Drug use: Never Sexual activity: Not on file Other Topics Concern Not on file Social History Narrative Not on file Social Drivers of Health Financial Resource Strain: Not on file Food Insecurity: Not on file Transportation Needs: Not on file Physical Activity: Not on file Stress: Not on file Social Connections: Not on file Personal Safety: Not on file Housing Stability: Not on file Physical Exam: Physical Exam Vitals and nursing note reviewed. Constitutional: Appearance: He is well-developed. HENT: Head: Normocephalic and atraumatic. Mouth/Throat: Mouth: Mucous membranes are moist. Pharynx: Oropharynx is clear. Cardiovascular: Rate and Rhythm: Normal rate and regular rhythm. Heart sounds: Normal heart sounds. Pulmonary: Effort: Pulmonary effort is normal. Breath sounds: Normal breath sounds. Abdominal: General: Bowel sounds are normal. Tenderness: There is no abdominal tenderness. Musculoskeletal: Lumbar back: Tenderness present. Back: Skin: General: Skin is warm. Capillary Refill: Capillary refill takes less than 2 seconds. Neurological: General: No focal deficit present. Mental Status: He is alert and oriented to person, place, and time. Psychiatric: Mood and Affect: Mood normal. Behavior: Behavior normal. Vital Signs During ED Visit Patient Vitals for the past 24 hrs: BP Temp Temp src Pulse Resp SpO2 Weight 06/22/25 0028 115/59 -- -- 84 18 97 % -- 06/21/25 2225 -- -- -- -- -- -- 100.7 kg (222 lb) 06/21/25 2224 141/79 97.4 F (36.3 C) Oral 81 16 96 % -- Orders/Results: Orders Placed This Encounter TOXICOLOGY DRUG SCREEN, URINE COMPREHENSIVE METABOLIC PANEL CBC, EDIF, PLATELET MAGNESIUM LIPASE LACTATE, BLOOD HYDROmorphone (DILAUDID) injection 1 mg Ondansetron 4mg/2ml (ZOFRAN) injection 4 mg Cyclobenzaprine 10 MG tablet HYDROmorphone (DILAUDID) injection 1 mg URINALYSIS, MACRO Results for orders placed or performed during the hospital encounter of 06/21/25 TOXICOLOGY DRUG SCREEN, URINE Result Value Ref Range Amphetamines, Urine, Screen NEGATIVE NEGATIVE NG/ML Methamphetamine NEGATIVE NEGATIVE NG/ML Barbiturates NEGATIVE NEGATIVE NG/ML Benzodiazepines NEGATIVE NEGATIVE NG/ML Cocaine NEGATIVE NEGATIVE NG/ML Methadone Metabolite NEGATIVE NEGATIVE NG/ML Opiates, Urine Screen NEGATIVE NEGATIVE NG/ML Tricyclic Antidepressants, Urine POSITIVE (A) NEGATIVE NG/ML Cannabinoids (Marijuana) NEGATIVE NEGATIVE NG/ML Oxycodone Confirmation POSITIVE (A) NEGATIVE NG/ML Buprenorphine NEGATIVE NEGATIVE NG/ML Fentanyl NEGATIVE NEGATIVE NG/ML COMPREHENSIVE METABOLIC PANEL Result Value Ref Range Glucose 106 (H) 70 - 100 MG/DL BUN 13 7 - 20 mg/dL CREATININE SERUM 1.10 0.70 - 1.20 mg/dL SODIUM 137 137 - 145 MMOL/L Potassium 4.0 3.5 - 5.1 MMOL/L CHLORIDE 105 98 - 107 MMOL/L CALCIUM 9.5 8.4 - 10.2 mg/dL PROTEIN, TOTAL 6.8 6.3 - 8.2 g/dL Albumin 4.0 3.5 - 5.0 g/dL BILIRUBIN, TOTAL 0.4 0.2 - 1.3 mg/dL AST 38 17 - 59 U/L ALKALINE PHOSPHATASE 88 38 - 126 U/L CARBON DIOXIDE (CO2) 26 22 - 30 MMOL/L A/G Ratio 1.4 RATIO ALT 49 <50 U/L ESTIMATED GFR 78 ml/min/1.73sq.m GFR COMMENT Average GFR for 40-49 years old = 99. CBC, EDIF, PLATELET Result Value Ref Range WBC (WHITE BLOOD COUNT) 10.4 3.6 - 11.0 10*3/uL RBC 4.80 4.0 - 6.1 10*6/uL HEMOGLOBIN (HGB) 15.9 14.0 - 18.0 G/DL HEMATOCRIT (HCT) 45.6 42.0 - 52.0 % Mean Cell Volume 95.0 80.0 - 100.0 FL Mean Cell HGB 33.1 26.0 - 35.0 PG Mean Cell HGB Concentration 34.8 27.0 - 37.0 G/DL RBC Distribution 13.1 11.5 - 14.5 % PLATELET COUNT 197 130 - 400 10*3/uL Mean Platelet Volume 9.8 7.4 - 11.0 FL DIFFERENTIAL TYPE AUTO DIFF % NEUTROPHILS 57.2 37.0 - 75.0 % LYMPHOCYTE 30.4 20.0 - 55.0 % MONOCYTE % 8.4 0.0 - 10.0 % EOSINOPHIL % 3.4 0.0 - 11.0 % BASOPHIL % 0.6 0.0 - 2.0 % Absolute Neutrophil Count 6.0 1.4 - 6.5 10*3/uL LYMPHOCYTES, ABSOLUTE 3.2 1.2 - 3.4 10*3/uL MONOCYTES, ABSOLUTE 0.9 (H) 0.0 - 0.7 10*3/uL ABSOLUTE EOSINOPHIL COUNT 0.4 0.0 - 0.7 10*3/uL ABSOLUTE BASOPHIL COUNT 0.1 0.0 - 0.2 10*3/uL MAGNESIUM Result Value Ref Range MAGNESIUM 2.0 1.6 - 2.3 MG/DL LIPASE Result Value Ref Range LIPASE 156 23 - 300 U/L LACTATE, BLOOD Result Value Ref Range LACTATE 1.4 0.7 - 2.0 mmol/L URINALYSIS, MACRO Result Value Ref Range Color, Urine YELLOW YELLOW Appearance, Urine CLEAR CLEAR Specific [place], Urine 1.020 1.010 - 1.025 PH URINE 6.5 5.0 - 7.0 Urine Protein NEGATIVE NEGATIVE mg/dl Glucose, Urine NEGATIVE NEGATIVE mg/dl Ketones, Urine NEGATIVE NEGATIVE mg/dl BILIRUBIN, URINE NEGATIVE NEGATIVE BLOOD, URINE DIPSTICK NEGATIVE NEGATIVE Nitrites, Urine NEGATIVE NEGATIVE Urobilinogen, Urine 0.2 0.2 - 1.0 E.U./dL Leukocyte esterase, Urine NEGATIVE NEGATIVE Radiographic Imaging No orders to display Procedures: Procedures Moderate Sedation Procedure: No ED Summary/MDM Medical Decision Making Amount and/or Complexity of Data Reviewed Labs: ordered. Risk Prescription drug management. Risk Details: Patient's acute pain was controlled with IV Dilaudid. He has a prescription for Percocet at home I will send him a prescription for Flexeril. He can call his pain management doctor today for follow up. Clinical Impression: 1. Acute on chronic low back pain No follow-ups on file. Discharge Medication List as of 06/22/2025 12:25 AM Discharge Medication List as of 06/22/2025 12:25 AM An After Visit Summary was printed and given to the patient with above information. . . [1] Past Medical History: Diagnosis Date Bipolar disorder [2] Past Surgical History: Procedure Laterality Date KNEE SURGERY Right ORIF WRIST Left SHOULDER SURGERY Left [3] No Known Allergies Larry Su MD 06/22/25 0136 [facility] 06-21-2025 Emergency departm ent Note Discharge instructions presented and explained, all questions answered. Pharmacy verified. IV removed per policy, patient tolerated well without complaints of pain. VS stable, patient discharged home in stable condition. [facility] 06-21-2025 Emergency departm ent Note Discharge instructions presented and explained, all questions answered. Pharmacy verified. IV removed per policy, patient tolerated well without complaints of pain. VS stable, patient discharged home in stable condition. Emergency Department Report [facility] EMERGENCY DEPARTMENT Service Date:.06/21/25 PCP: Mick Leung Chief Complaint: Chief Complaint Patient presents with Back Pain Left lower back pain since last night with NKI. HPI Ajit Zhu is a 40 y.o. male. History is obtained from the patient. Patient states he is having left lower back pain increasing since last night. States he has trouble with low back pain and has a nerve stimulator. He states he has a neurologist at [place]. He states that he also has had blood in his urine for a long time but he is not sure how long. States his pain has a little higher up on his back than in his normal back pain. His back was originally injured many years ago in his had chronic intermittent trouble since then. Review of Systems: Review of Systems Review of Systems negative other than stated in the HPI Past Medical History: Past Medical History[1] Past Surgical History: Past Surgical History[2] Allergies: Allergies[3] Medications: Discharge Medication List as of 06/21/2025 12:00 PM START taking these medications Details oxyCODONE-acetaminophen 5-325 MG per tablet Take 1 tablet by mouth every 8 hours as needed for up to 3 days. Normal Disp-9 tablet, R-0Prescribe no greater than 7 days (adult) or 5 days (minor) for acute pain unless justification documented in chart CONTINUE these medications which have NOT CHANGED Details amitriptyline 50 MG tablet Take 1-2 tablets by mouth at bedtime. Historical Med buPROPion 150 MG tablet SR Historical Med chlorhexidine 0.12 % Solution oral solution Rinse mouth with 15mL for 30sec then spit BID Normal Disp-118 mL, R-0 cloNIDine 0.1 MG tablet Take 1 tablet by mouth 2 times daily. Historical Med cyclobenzaprine 10 MG tablet Take 1 tablet by mouth at bedtime. Normal Disp-30 tablet, R-2 diclofenac sodium [address] Take 1 tablet by mouth 2 times daily. Normal Disp-60 tablet, R-2 gabapentin 600 MG tablet Take 1 tablet by mouth 3 times daily for 5 days. Normal Disp-15 tablet, R-0 lamoTRIgine 150 MG tablet TAKE 1 TABLET BY MOUTH IN THE MORNING Historical Med [place] 300 MG capsule Take 1 capsule by mouth 2 times daily. Historical Med meloxicam 15 MG tablet Take 1 tablet by mouth daily. Normal Disp-30 tablet, R-2 omeprazole [address] capsule Take 20 mg by mouth daily. Historical Med predniSONE 20 MG tablet Take 3 tablets by mouth daily every morning. 3 TABS X 5 DAYS Normal Disp-15 tablet, R-0 pregabalin 25 MG capsule Take 1 capsule by mouth at bedtime for 14 days. Then stop. This is a weaning prescription. Normal Disp-14 capsule, R-0 tiZANidine 4 MG tablet Take 1 tablet by mouth 3 times daily for 5 days. Normal Disp-15 tablet, R-0 Family History: No family history on file. Social History: Social History Socioeconomic History Marital status: Single Spouse name: Not on file Number of children: Not on file Years of education: Not on file Highest education level: Not on file Occupational History Not on file Tobacco Use Smoking status: Every Day Current packs/day: 0.50 Types: Cigarettes Smokeless tobacco: Former Vaping Use Vaping status: Every Day Substance and Sexual Activity Alcohol use: Yes Comment: rarely Drug use: Never Sexual activity: Not on file Other Topics Concern Not on file Social History Narrative Not on file Social Drivers of Health Financial Resource Strain: Not on file Food Insecurity: Not on file Transportation Needs: Not on file Physical Activity: Not on file Stress: Not on file Social Connections: Not on file Personal Safety: Not on file Housing Stability: Not on file Physical Exam: Physical Exam Vitals and nursing note reviewed. Constitutional: Appearance: Normal appearance. HENT: Head: Normocephalic and atraumatic. Eyes: Conjunctiva/sclera: Conjunctivae normal. Cardiovascular: Rate and Rhythm: Normal rate and regular rhythm. Pulmonary: Effort: Pulmonary effort is normal. No respiratory distress. Breath sounds: Normal breath sounds. No wheezing. Abdominal: General: There is no distension. Palpations: Abdomen is soft. Tenderness: There is no abdominal tenderness. There is no guarding. Musculoskeletal: General: No tenderness, deformity or signs of injury. Normal range of motion. Cervical back: Normal range of motion and neck supple. Comments: Patient has tenderness to palpation and percussion over the left flank into the left low back. He has good range of motion and strength in the legs. Mild pain with straight leg raising on the left. No pain with hip motion. Good motion sensation and strength in the legs. Skin: Findings: No rash. Neurological: General: No focal deficit present. Mental Status: He is alert and oriented to person, place, and time. Cranial Nerves: No cranial nerve deficit. Motor: No weakness. Coordination: Coordination normal. Psychiatric: Behavior: Behavior normal. Thought Content: Thought content normal. Judgment: Judgment normal. Vital Signs During ED Visit Patient Vitals for the past 24 hrs: BP Temp Temp src Pulse Resp SpO2 Height Weight 06/21/25 1205 105/62 -- -- 71 16 96 % -- -- 06/21/25 1046 124/72 -- -- 81 17 97 % -- -- 06/21/25 0919 128/75 97.3 F (36.3 C) Temporal 87 16 96 % -- -- 06/21/25 0918 -- -- -- -- -- -- 1.727 m (5' 8) 95.3 kg (210 lb) Orders/Results: Results for orders placed or performed during the hospital encounter of 06/21/25 CHEM 7 (LYTES,BUN,CREA,GLUC) Result Value Ref Range Glucose 97 70 - 100 MG/DL BUN 14 7 - 20 mg/dL CREATININE SERUM 0.95 0.70 - 1.20 mg/dL SODIUM 136 (L) 137 - 145 MMOL/L Potassium 4.4 3.5 - 5.1 MMOL/L CHLORIDE 106 98 - 107 MMOL/L CARBON DIOXIDE (CO2) 24 22 - 30 MMOL/L ESTIMATED GFR 92 ml/min/1.73sq.m GFR COMMENT Average GFR for 40-49 years old = 99. HEPATIC FUNCTION PANEL Result Value Ref Range Albumin 4.7 3.5 - 5.0 G/DL BILIRUBIN, TOTAL 0.6 0.2 - 1.3 mg/dL ALKALINE PHOSPHATASE 83 38 - 126 U/L AST 49 17 - 59 U/L BILIRUBIN, DIRECT 0.3 0.0 - 0.4 MG/DL PROTEIN, TOTAL 8.3 (H) 6.3 - 8.2 g/dL ALT 56 (H) <50 U/L LIPASE Result Value Ref Range LIPASE 697 (HH) 23 - 300 U/L CBC, EDIF, PLATELET Result Value Ref Range WBC (WHITE BLOOD COUNT) 10.0 3.6 - 11.0 10*3/uL RBC 5.31 4.0 - 6.1 10*6/uL HEMOGLOBIN (HGB) 17.7 14.0 - 18.0 G/DL HEMATOCRIT (HCT) 50.4 42.0 - 52.0 % Mean Cell Volume 95.0 80.0 - 100.0 FL Mean Cell HGB 33.4 26.0 - 35.0 PG Mean Cell HGB Concentration 35.1 27.0 - 37.0 G/DL RBC Distribution 13.2 11.5 - 14.5 % PLATELET COUNT 202 130 - 400 10*3/uL Mean Platelet Volume 10.2 7.4 - 11.0 FL NEUTROPHILS 66 37.0 - 75.0 % LYMPHOCYTE 22 20.0 - 55.0 % MONOCYTE % 8 0.0 - 10.0 % EOSINOPHIL % 3 0.0 - 11.0 % BASOPHIL % 1 0.0 - 2.0 % MORPHOLOGY NORMAL DIFFERENTIAL TYPE AUTO DIFF RESULTS VERIFIED BY SCAN % PLATELET COMMENT GIANT PLTS URINALYSIS, MACRO Result Value Ref Range Color, Urine YELLOW YELLOW Appearance, Urine CLEAR CLEAR Specific [place], Urine 1.020 1.010 - 1.025 PH URINE 6.0 5.0 - 7.0 Urine Protein NEGATIVE NEGATIVE mg/dl Glucose, Urine NEGATIVE NEGATIVE mg/dl Ketones, Urine NEGATIVE NEGATIVE mg/dl BILIRUBIN, URINE NEGATIVE NEGATIVE BLOOD, URINE DIPSTICK NEGATIVE NEGATIVE Nitrites, Urine NEGATIVE NEGATIVE Urobilinogen, Urine 0.2 0.2 - 1.0 E.U./dL Leukocyte esterase, Urine NEGATIVE NEGATIVE Radiographic Imaging CT SPINE LUMBAR WITHOUT CONTRAST Final Result IMPRESSION: Postsurgical and degenerative changes without acute osseous abnormality. No CT evidence of severe spinal canal stenosis CT ABDOMEN/PELVIS WITHOUT CONTRAST Final Result IMPRESSION: 1. There is a small 3 mm nonobstructive mid pole right renal calculus. 2. No other acute appearing intra-abdominal or pelvic finding is identified. 3. Spinal stimulator leads are noted. Procedures: Procedures ED Summary/MDM Patient has been stable here in the emergency room. Urinalysis shows no urinary tract infection electrolytes are stable other than a sodium of 136 kidney function is good liver enzymes are near normal. Lipase is elevated at 697. This is a new diagnosis for him he states he has never been diagnosed with pancreatitis in the past. White count is normal hemoglobin is stable. We did obtain a CT scan of the patient's abdomen and pelvis which shows no abnormalities around the pancreas. Does have a small stone in his right kidney which I do not think it is causing him any trouble at this time. CT scan of the lumbar spine shows postsurgical changes and degenerative changes but no obvious acute abnormalities. At this time I discussed with the patient getting admitted to the hospital for pancreatitis and having further evaluation. He states he does not wish to do that at this time. He wishes to go home and try clear liquids and follow up as an outpatient. He understands that this may get worse and he may need further evaluation and treatment. He was prescribed a short course of pain medication. I did review the patient's [facility] report and he understands that he needs to follow up promptly. He was discharged in stable condition. I think mostly has pain is coming from pancreatitis although he does have back pain which could be contributing. Clinical Impression: 1. Acute pancreatitis without infection or necrosis, unspecified pancreatitis type 2. Acute left flank pain No follow-ups on file. Discharge Medication List as of 06/21/2025 12:00 PM START taking these medications Details oxyCODONE-acetaminophen 5-325 MG per tablet Take 1 tablet by mouth every 8 hours as needed for up to 3 days. Normal Disp-9 tablet, R-0Prescribe no greater than 7 days (adult) or 5 days (minor) for acute pain unless justification documented in chart Discharge Medication List as of 06/21/2025 12:00 PM An After Visit Summary was printed and given to the patient with above information. Cristy Min PA-C Emergency Department [place], [place] . . [1] Past Medical History: Diagnosis Date Bipolar disorder [2] Past Surgical History: Procedure Laterality Date KNEE SURGERY Right ORIF WRIST Left SHOULDER SURGERY Left [3] No Known Allergies Cristy Min PA-C 06/21/25 1841 Cosigned by Rafi Antonio MD at 06/21/2025 6:56 PM EDT Associated attestation - Rafi Antonio MD - 06/21/2025 6:56 PM EDT The Mid-level provider independently saw this patient. I was available for consult. Patient placed on continuous pulse ox due to medication administration. documented in this encounter [facility] 06-21-2025 Physician Emergen cy department Note Emergency Department Report [facility] EM[facility]ENCY [facility]PART[facility] Service Date:.06/21/25 PCP: Mick Leung Chief Complaint: Chief Complaint Patient presents with Back Pain Left lower back pain since last night with NKI. HPI Ajit Zhu is a 40 y.o. male. History is obtained from the patient. Patient states he is having left lower back pain increasing since last night. States he has trouble with low back pain and has a nerve stimulator. He states he has a neurologist at [place]. He states that he also has had blood in his urine for a long time but he is not sure how long. States his pain has a little higher up on his back than in his normal back pain. His back was originally injured many years ago in his had chronic intermittent trouble since then. Review of Systems: Review of Systems Review of Systems negative other than stated in the HPI Past Medical History: Past Medical History[1] Past Surgical History: Past Surgical History[2] Allergies: Allergies[3] Medications: Discharge Medication List as of 06/21/2025 12:00 PM START taking these medications Details oxyCODONE-acetaminophen 5-325 MG per tablet Take 1 tablet by mouth every 8 hours as needed for up to 3 days. Normal Disp-9 tablet, R-0Prescribe no greater than 7 days (adult) or 5 days (minor) for acute pain unless justification documented in chart CONTINUE these medications which have NOT CHANGED Details amitriptyline 50 MG tablet Take 1-2 tablets by mouth at bedtime. Historical Med buPROPion 150 MG tablet SR Historical Med chlorhexidine 0.12 % Solution oral solution Rinse mouth with 15mL for 30sec then spit BID Normal Disp-118 mL, R-0 cloNIDine 0.1 MG tablet Take 1 tablet by mouth 2 times daily. Historical Med cyclobenzaprine 10 MG tablet Take 1 tablet by mouth at bedtime. Normal Disp-30 tablet, R-2 diclofenac sodium [address] Take 1 tablet by mouth 2 times daily. Normal Disp-60 tablet, R-2 gabapentin 600 MG tablet Take 1 tablet by mouth 3 times daily for 5 days. Normal Disp-15 tablet, R-0 lamoTRIgine 150 MG tablet TAKE 1 TABLET BY MOUTH IN THE MORNING Historical Med [place] 300 MG capsule Take 1 capsule by mouth 2 times daily. Historical Med meloxicam 15 MG tablet Take 1 tablet by mouth daily. Normal Disp-30 tablet, R-2 omeprazole [address] capsule Take 20 mg by mouth daily. Historical Med predniSONE 20 MG tablet Take 3 tablets by mouth daily every morning. 3 TABS X 5 DAYS Normal Disp-15 tablet, R-0 pregabalin 25 MG capsule Take 1 capsule by mouth at bedtime for 14 days. Then stop. This is a weaning prescription. Normal Disp-14 capsule, R-0 tiZANidine 4 MG tablet Take 1 tablet by mouth 3 times daily for 5 days. Normal Disp-15 tablet, R-0 Family History: No family history on file. Social History: Social History Socioeconomic History Marital status: Single Spouse name: Not on file Number of children: Not on file Years of education: Not on file Highest education level: Not on file Occupational History Not on file Tobacco Use Smoking status: Every Day Current packs/day: 0.50 Types: Cigarettes Smokeless tobacco: Former Vaping Use Vaping status: Every Day Substance and Sexual Activity Alcohol use: Yes Comment: rarely Drug use: Never Sexual activity: Not on file Other Topics Concern Not on file Social History Narrative Not on file Social Drivers of Health Financial Resource Strain: Not on file Food Insecurity: Not on file Transportation Needs: Not on file Physical Activity: Not on file Stress: Not on file Social Connections: Not on file Personal Safety: Not on file Housing Stability: Not on file Physical Exam: Physical Exam Vitals and nursing note reviewed. Constitutional: Appearance: Normal appearance. HENT: Head: Normocephalic and atraumatic. Eyes: Conjunctiva/sclera: Conjunctivae normal. Cardiovascular: Rate and Rhythm: Normal rate and regular rhythm. Pulmonary: Effort: Pulmonary effort is normal. No respiratory distress. Breath sounds: Normal breath sounds. No wheezing. Abdominal: General: There is no distension. Palpations: Abdomen is soft. Tenderness: There is no abdominal tenderness. There is no guarding. Musculoskeletal: General: No tenderness, deformity or signs of injury. Normal range of motion. Cervical back: Normal range of motion and neck supple. Comments: Patient has tenderness to palpation and percussion over the left flank into the left low back. He has good range of motion and strength in the legs. Mild pain with straight leg raising on the left. No pain with hip motion. Good motion sensation and strength in the legs. Skin: Findings: No rash. Neurological: General: No focal deficit present. Mental Status: He is alert and oriented to person, place, and time. Cranial Nerves: No cranial nerve deficit. Motor: No weakness. Coordination: Coordination normal. Psychiatric: Behavior: Behavior normal. Thought Content: Thought content normal. Judgment: Judgment normal. Vital Signs During ED Visit Patient Vitals for the past 24 hrs: BP Temp Temp src Pulse Resp SpO2 Height Weight 06/21/25 1205 105/62 -- -- 71 16 96 % -- -- 06/21/25 1046 124/72 -- -- 81 17 97 % -- -- 06/21/25 0919 128/75 97.3 F (36.3 C) Temporal 87 16 96 % -- -- 06/21/25 0918 -- -- -- -- -- -- 1.727 m (5' 8) 95.3 kg (210 lb) Orders/Results: Results for orders placed or performed during the hospital encounter of 06/21/25 CHEM 7 (LYTES,BUN,CREA,GLUC) Result Value Ref Range Glucose 97 70 - 100 MG/DL BUN 14 7 - 20 mg/dL CREATININE SERUM 0.95 0.70 - 1.20 mg/dL SODIUM 136 (L) 137 - 145 MMOL/L Potassium 4.4 3.5 - 5.1 MMOL/L CHLORIDE 106 98 - 107 MMOL/L CARBON DIOXIDE (CO2) 24 22 - 30 MMOL/L ESTIMATED GFR 92 ml/min/1.73sq.m GFR COMMENT Average GFR for 40-49 years old = 99. HEPATIC FUNCTION PANEL Result Value Ref Range Albumin 4.7 3.5 - 5.0 G/DL BILIRUBIN, TOTAL 0.6 0.2 - 1.3 mg/dL ALKALINE PHOSPHATASE 83 38 - 126 U/L AST 49 17 - 59 U/L BILIRUBIN, DIRECT 0.3 0.0 - 0.4 MG/DL PROTEIN, TOTAL 8.3 (H) 6.3 - 8.2 g/dL ALT 56 (H) <50 U/L LIPASE Result Value Ref Range LIPASE 697 (HH) 23 - 300 U/L CBC, EDIF, PLATELET Result Value Ref Range WBC (WHITE BLOOD COUNT) 10.0 3.6 - 11.0 10*3/uL RBC 5.31 4.0 - 6.1 10*6/uL HEMOGLOBIN (HGB) 17.7 14.0 - 18.0 G/DL HEMATOCRIT (HCT) 50.4 42.0 - 52.0 % Mean Cell Volume 95.0 80.0 - 100.0 FL Mean Cell HGB 33.4 26.0 - 35.0 PG Mean Cell HGB Concentration 35.1 27.0 - 37.0 G/DL RBC Distribution 13.2 11.5 - 14.5 % PLATELET COUNT 202 130 - 400 10*3/uL Mean Platelet Volume 10.2 7.4 - 11.0 FL NEUTROPHILS 66 37.0 - 75.0 % LYMPHOCYTE 22 20.0 - 55.0 % MONOCYTE % 8 0.0 - 10.0 % EOSINOPHIL % 3 0.0 - 11.0 % BASOPHIL % 1 0.0 - 2.0 % MORPHOLOGY NORMAL DIFFERENTIAL TYPE AUTO DIFF RESULTS VERIFIED BY SCAN % PLATELET COMMENT GIANT PLTS URINALYSIS, MACRO Result Value Ref Range Color, Urine YELLOW YELLOW Appearance, Urine CLEAR CLEAR Specific [place], Urine 1.020 1.010 - 1.025 PH URINE 6.0 5.0 - 7.0 Urine Protein NEGATIVE NEGATIVE mg/dl Glucose, Urine NEGATIVE NEGATIVE mg/dl Ketones, Urine NEGATIVE NEGATIVE mg/dl BILIRUBIN, URINE NEGATIVE NEGATIVE BLOOD, URINE DIPSTICK NEGATIVE NEGATIVE Nitrites, Urine NEGATIVE NEGATIVE Urobilinogen, Urine 0.2 0.2 - 1.0 E.U./dL Leukocyte esterase, Urine NEGATIVE NEGATIVE Radiographic Imaging CT SPINE LUMBAR WITHOUT CONTRAST Final Result IMPRESSION: Postsurgical and degenerative changes without acute osseous abnormality. No CT evidence of severe spinal canal stenosis CT ABDOMEN/PELVIS WITHOUT CONTRAST Final Result IMPRESSION: 1. There is a small 3 mm nonobstructive mid pole right renal calculus. 2. No other acute appearing intra-abdominal or pelvic finding is identified. 3. Spinal stimulator leads are noted. Procedures: Procedures ED Summary/MDM Patient has been stable here in the emergency room. Urinalysis shows no urinary tract infection electrolytes are stable other than a sodium of 136 kidney function is good liver enzymes are near normal. Lipase is elevated at 697. This is a new diagnosis for him he states he has never been diagnosed with pancreatitis in the past. White count is normal hemoglobin is stable. We did obtain a CT scan of the patient's abdomen and pelvis which shows no abnormalities around the pancreas. Does have a small stone in his right kidney which I do not think it is causing him any trouble at this time. CT scan of the lumbar spine shows postsurgical changes and degenerative changes but no obvious acute abnormalities. At this time I discussed with the patient getting admitted to the hospital for pancreatitis and having further evaluation. He states he does not wish to do that at this time. He wishes to go home and try clear liquids and follow up as an outpatient. He understands that this may get worse and he may need further evaluation and treatment. He was prescribed a short course of pain medication. I did review the patient's OARRS report and he understands that he needs to follow up promptly. He was discharged in stable condition. I think mostly has pain is coming from pancreatitis although he does have back pain which could be contributing. Clinical Impression: 1. Acute pancreatitis without infection or necrosis, unspecified pancreatitis type 2. Acute left flank pain No follow-ups on file. Discharge Medication List as of 06/21/2025 12:00 PM START taking these medications Details oxyCODONE-acetaminophen 5-325 MG per tablet Take 1 tablet by mouth every 8 hours as needed for up to 3 days. Normal Disp-9 tablet, R-0Prescribe no greater than 7 days (adult) or 5 days (minor) for acute pain unless justification documented in chart Discharge Medication List as of 06/21/2025 12:00 PM An After Visit Summary was printed and given to the patient with above information. Cristy Min PA-C Emergency Department [place], [place] . . [1] Past Medical History: Diagnosis Date Bipolar disorder [2] Past Surgical History: Procedure Laterality Date KNEE SURGERY Right ORIF WRIST Left SHOULDER SURGERY Left [3] No Known Allergies Cristy Min PA-C 06/21/25 184 Cosigned by Rafi Antonio MD at 06/21/2025 6:56 PM EDT Associated attestation - Rafi Antonio MD - 06/21/2025 6:56 PM EDT The Mid-level provider independently saw this patient. I was available for consult. [facility] 06-21-2025 Emergency departm ent Note Patient placed on continuous pulse ox due to medication administration. [facility] 05-13-2025 Evaluation note Diagnosis Onset Date Resolution Cervical myelopathy with cervical radiculopathy acute May 11:23am Degenerative disc disease, cervical acute May 13, 2025 11:23am Spondylolisthesis of cervical region acute May 13, 2025 11:23am [facility] Work Phone: 1(888) 636-512907-10-2025 Evaluation note* Diagnosis Onset Date Resolution Status Admit Date Cervical myelopathy with cervical radiculopathy acute May 11:23am Degenerative disc disease, cervical acute May 13, 2025 11:23am Spondylolisthesis of cervica l region acute May 13, 2025 11:23am Cervical myelopathy with cervical radiculopathy acute July 22, 2025 8:43am Degenerative disc disease, cervical acute July 22, 2025 8:43am Spondylolisthesis of cervica l region acute July 22, 2025 8:43am [facility] Work Phone: 1(377) 567-257206-27-2025 Emergency department Note* Brian Solis RN - 04/30/2025 4:49 AM EDT Pt given discharge instructions and states understanding of these instructions. Pt has no questionsat this time. Pt encouraged to follow up with PCP and neuro surgery. 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 Pt leaves ER in stable condition with steady gait at this time. [facility]06-27-2025 Emergency department Note* Brian Solis RN - 04/30/2025 4:49 AM EDT Pt given discharge instructions and states understanding of these instructions. Pt has no questionsat this time. Pt encouraged to follow up with PCP and neuro surgery. 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 Pt leaves ER in stable condition with steady gait at this time. * Brian Solis RN - 04/30/2025 3:48 AM EDT Pt asked about pain level and states still at 10/10 pain at this time to the left arm. Dr. Mena made aware. * Kacie Mena DO - 04/30/2025 1:25 AM EDT Emergency Room Note [facility] Service Date:.04/30/25 PCP: Mick Leung Chief Complaint: Chief Complaint Patient presents with Numbness Left shoulder down the left arm patient is having numbness, tingling, and pain. Pt states been going on for days now. Pt denies cardiac history. Pain does not spread anywhere. HPI Ajit Zhu is a 39 y.o. male presents to the ED today left hand numbness and tingling for the last week patient is already a spinal surgery patient he sees Dr. Cha at [facility] and has a thoracic spinal Stimulator General patient is awake alert and oriented x4 no acute distress Head normocephalic atraumatic HEENT pupils are equal round reactive to light and accommodation extraocular muscles are intact without ptosis exophthalmos or nystagmus, Neck no JVD or HJR no nuchal rigidity Heart regular rate S1-S2 without clicks rubs or bruit Lungs clear to auscultation bilaterally Abdomen soft nontender nondistended no peritoneal signs Genitourinary no CVA tenderness Extremities no obvious injuries or deformities Spurling's test reproduces the patient's symptoms on the left Skin normal appearing skin for stated age and race Neurologic NIHSS is 0 Psychiatric normal affect patient does not appear to be a danger to self or others Review of Systems: Review of Systems Past Medical History: Past Medical History: Diagnosis Date Bipolar disorder Past Surgical History: Past Surgical History: Procedure Laterality Date KNEE SURGERY Right ORIF WRIST Left SHOULDER SURGERY Left Allergies: No Known Allergies Medications: Patient's Medications New Prescriptions No medications on file Previous Medications AMITRIPTYLINE 50 MG TABLET Take 1-2 tablets by mouth at bedtime. BUPROPION 150 MG TABLET SR CHLORHEXIDINE 0.12 % SOLUTION ORAL SOLUTION Rinse mouth with 15mL for 30sec then spit BID CLONIDINE 0.1 MG TABLET Take 1 tablet by mouth 2 times daily. CYCLOBENZAPRINE 10 MG TABLET Take 1 tablet by mouth at bedtime. DICLOFENAC SODIUM [address] Take 1 tablet by mouth 2 times daily. HYDROCODONE-ACETAMINOPHEN 5-325 MG TABLET Take 1 tablet by mouth every 6 hours as needed for SeverePain (Do not drink alcohol, drive or operate machinery while taking this medication.) for up to 1 day. LAMOTRIGINE 150 MG TABLET TAKE 1 TABLET BY MOUTH IN THE MORNING LITHIUM 300 MG CAPSULE Take 1 capsule by mouth 2 times daily. MELOXICAM 15 MG TABLET Take 1 tablet by mouth daily. OMEPRAZOLE [address] CAPSULE Take 20 mg by mouth daily. PREDNISONE 20 MG TABLET Take 1 tablet by mouth daily. PREGABALIN 25 MG CAPSULE Take 1 capsule by mouth at bedtime for 14 days. Then stop. This is a weaning prescription. TIZANIDINE 4 MG TABLET Take 1 tablet by mouth 3 times daily for 5 days. Modified Medications No medications on file Discontinued Medications No medications on file Family History: History reviewed. No pertinent family history. Social History: Social History Socioeconomic History Marital status: Single Spouse name: Not on file Number of children: Not on file Years of education: Not on file Highest education level: Not on file Occupational History Not on file Tobacco Use Smoking status: Every Day Current packs/day: 0.50 Types: Cigarettes Smokeless tobacco: Current Vaping Use Vaping status: Every Day Substance and Sexual Activity Alcohol use: Yes Comment: rarely Drug use: Not Currently Sexual activity: Not on file Other Topics Concern Not on file Social History Narrative Not on file Social Drivers of Health Financial Resource Strain: Not on file Food Insecurity: Not on file Transportation Needs: Not on file Physical Activity: Not on file Stress: Not on file Social Connections: Not on file Personal Safety: Not on file Housing Stability: Not on file Physical Exam: Physical Exam Vital Signs During ED Visit Patient Vitals for the past 24 hrs: BP Temp Temp src Pulse Resp SpO2 Height 04/30/25 0021 133/74 98.3 F (36.8 C) Oral 83 16 97 % -- 04/30/25 0020 -- -- -- -- -- -- 1.727 m (5' 8) Orders/Results: Orders Placed This Encounter CT SPINE CERVICAL WITHOUT CONTRAST Troponin I, High sensitivity ECG predniSONE (DELTASONE) tablet 60 mg Gabapentin (NEURONTIN) capsule 600 mg Results for orders placed or performed during the hospital encounter of 04/30/25 TROPONIN I, HIGH SENSITIVITY Result Value Ref Range TROPONIN I, HIGH SENSITIVITY 3 0 - 20 pg/mL Radiographic Imaging CT SPINE CERVICAL WITHOUT CONTRAST (Results Pending) Procedures: Procedures Moderate Sedation Procedure: No Medical Decision Making Amount and/or Complexity of Data Reviewed Labs: ordered. Radiology: ordered. ECG/medicine tests: ordered. Risk Prescription drug management. ED Summary/MDM I explained to the patient layman's terms that his CT and exam was consistent with cervical radiculopathy and I was going to have him follow up with his spinal surgeon Dr. Cha he agreed with this plan Clinical Impression: Cervical radiculopathy Suggested E/M Coding Level: 4, 41709 This level has been selected based on the current CPT guidelines for E/M codes in the Emergency Department based on 2/3 of the CoPA, Data, and Risk. COPA: The patient has the following undiagnosed illness with uncertain prognosis: [] Cervical radiculopathy The patient has the following acute complicated injury: [] Data(1/3 categories were performed): I independently interpreted the following test: [I viewed the patient's CT cervical spine my independent interpretation multilevel degenerative disease that is consistent with his clinical findings of cervical radiculopathy Risk: This patient has a moderate risk of morbidity as evidenced by the following further diagnostic testing or treatment actions: [He was prescribed gabapentin and prednisone and will follow up with his spinal surgeon No follow-ups on file. New Prescriptions No medications on file Discontinued Medications No medications on file An After Visit Summary was printed and given to the patient with above information. . Kacie Mena DO 04/30/25 0930 * Brian Soils RN - 04/30/2025 12:23 AM EDT Bed: E011 Expected date: Expected time: Means of arrival: Comments: [facility]* Brian Solis RN - 04/30/2025 3:48 AM EDT Pt asked about pain level and states still at 10/10 pain at this time to the left arm. Dr. Mena made aware. [facility]06-27-2025 Physician Emergency department Note* Kacie Mena DO - 04/30/2025 1:25 AM EDT Emergency Room Note [facility] Service Date:.04/30/25 PCP: Mick Leung Chief Complaint: Chief Complaint Patient presents with Numbness Left shoulder down the left arm patient is having numbness, tingling, and pain. Pt states been going on for days now. Pt denies cardiac history. Pain does not spread anywhere. HPI Ajit Zhu is a 39 y.o. male presents to the ED today left hand numbness and tingling for the last week patient is already a spinal surgery patient he sees Dr. Cha at [facility] and has a thoracic spinal Stimulator General patient is awake alert and oriented x4 no acute distress Head normocephalic atraumatic HEENT pupils are equal round reactive to light and accommodation extraocular muscles are intact without ptosis exophthalmos or nystagmus, Neck no JVD or HJR no nuchal rigidity Heart regular rate S1-S2 without clicks rubs or bruit Lungs clear to auscultation bilaterally Abdomen soft nontender nondistended no peritoneal signs Genitourinary no CVA tenderness Extremities no obvious injuries or deformities Spurling's test reproduces the patient's symptoms on the left Skin normal appearing skin for stated age and race Neurologic NIHSS is 0 Psychiatric normal affect patient does not appear to be a danger to self or others Review of Systems: Review of Systems Past Medical History: Past Medical History: Diagnosis Date Bipolar disorder Past Surgical History: Past Surgical History: Procedure Laterality Date KNEE SURGERY Right ORIF WRIST Left SHOULDER SURGERY Left Allergies: No Known Allergies Medications: Patient's Medications New Prescriptions No medications on file Previous Medications AMITRIPTYLINE 50 MG TABLET Take 1-2 tablets by mouth at bedtime. BUPROPION 150 MG TABLET SR CHLORHEXIDINE 0.12 % SOLUTION ORAL SOLUTION Rinse mouth with 15mL for 30sec then spit BID CLONIDINE 0.1 MG TABLET Take 1 tablet by mouth 2 times daily. CYCLOBENZAPRINE 10 MG TABLET Take 1 tablet by mouth at bedtime. DICLOFENAC SODIUM [address] Take 1 tablet by mouth 2 times daily. HYDROCODONE-ACETAMINOPHEN 5-325 MG TABLET Take 1 tablet by mouth every 6 hours as needed for SeverePain (Do not drink alcohol, drive or operate machinery while taking this medication.) for up to 1 day. LAMOTRIGINE 150 MG TABLET TAKE 1 TABLET BY MOUTH IN THE MORNING LITHIUM 300 MG CAPSULE Take 1 capsule by mouth 2 times daily. MELOXICAM 15 MG TABLET Take 1 tablet by mouth daily. OMEPRAZOLE [address] CAPSULE Take 20 mg by mouth daily. PREDNISONE 20 MG TABLET Take 1 tablet by mouth daily. PREGABALIN 25 MG CAPSULE Take 1 capsule by mouth at bedtime for 14 days. Then stop. This is a weaning prescription. TIZANIDINE 4 MG TABLET Take 1 tablet by mouth 3 times daily for 5 days. Modified Medications No medications on file Discontinued Medications No medications on file Family History: History reviewed. No pertinent family history. Social History: Social History Socioeconomic History Marital status: Single Spouse name: Not on file Number of children: Not on file Years of education: Not on file Highest education level: Not on file Occupational History Not on file Tobacco Use Smoking status: Every Day Current packs/day: 0.50 Types: Cigarettes Smokeless tobacco: Current Vaping Use Vaping status: Every Day Substance and Sexual Activity Alcohol use: Yes Comment: rarely Drug use: Not Currently Sexual activity: Not on file Other Topics Concern Not on file Social History Narrative Not on file Social Drivers of Health Financial Resource Strain: Not on file Food Insecurity: Not on file Transportation Needs: Not on file Physical Activity: Not on file Stress: Not on file Social Connections: Not on file Personal Safety: Not on file Housing Stability: Not on file Physical Exam: Physical Exam Vital Signs During ED Visit Patient Vitals for the past 24 hrs: BP Temp Temp src Pulse Resp SpO2 Height 04/30/25 0021 133/74 98.3 F (36.8 C) Oral 83 16 97 % -- 04/30/25 0020 -- -- -- -- -- -- 1.727 m (5' 8) Orders/Results: Orders Placed This Encounter CT SPINE CERVICAL WITHOUT CONTRAST Troponin I, High sensitivity ECG predniSONE (DELTASONE) tablet 60 mg Gabapentin (NEURONTIN) capsule 600 mg Results for orders placed or performed during the hospital encounter of 04/30/25 TROPONIN I, HIGH SENSITIVITY Result Value Ref Range TROPONIN I, HIGH SENSITIVITY 3 0 - 20 pg/mL Radiographic Imaging CT SPINE CERVICAL WITHOUT CONTRAST (Results Pending) Procedures: Procedures Moderate Sedation Procedure: No Medical Decision Making Amount and/or Complexity of Data Reviewed Labs: ordered. Radiology: ordered. ECG/medicine tests: ordered. Risk Prescription drug management. ED Summary/MDM I explained to the patient layman's terms that his CT and exam was consistent with cervical radiculopathy and I was going to have him follow up with his spinal surgeon Dr. Cha he agreed with this plan Clinical Impression: Cervical radiculopathy Suggested E/M Coding Level: 4, 30059 This level has been selected based on the current CPT guidelines for E/M codes in the Emergency Department based on 2/3 of the CoPA, Data, and Risk. COPA: The patient has the following undiagnosed illness with uncertain prognosis: [] Cervical radiculopathy The patient has the following acute complicated injury: [] Data(1/3 categories were performed): I independently interpreted the following test: [I viewed the patient's CT cervical spine my independent interpretation multilevel degenerative disease that is consistent with his clinical findings of cervical radiculopathy Risk: This patient has a moderate risk of morbidity as evidenced by the following further diagnostic testing or treatment actions: [He was prescribed gabapentin and prednisone and will follow up with his spinal surgeon No follow-ups on file. New Prescriptions No medications on file Discontinued Medications No medications on file An After Visit Summary was printed and given to the patient with above information. . Kacie Mena DO 04/30/25 0930 [facility]06[facility] Emergency department Note* Brian Solis RN - 04/30/2025 12:23 AM EDT Bed: E011 Expected date: Expected time: Means of arrival: Comments: T [facility]06-18-2025 Radiology Diagnostic study note [facility] [address] [place] [address] [id number] Cerv Spine 2 or 3 Views MR#: [id number] Acct: [id number] Name: MARKOAJIT L Rep #: [id number] : 1985 M 39 From: Margoth Brambila MD PCP: Care Physician,No Primary Status: PRE ER Study:Cerv Spine 2 or 3 Views Date of Exam: 04/21/25 Exam# [id number] Ordering Dr: Deya Mckee DO PROCEDURE: CERV SPINE 2 OR 3 VIEWS 04/21/2025 REASON FOR EXAM: NECK PAIN TECHNIQUE: CERV SPINE 3 VIEWS COMPARISON: None FINDINGS: There is loss of the lordosis. There is no significant spondylolisthesis. There is degenerative disc disease at C5-6. Facet articulations are aligned. Prevertebral soft tissues are within normal limits. Hardware is partly visible in the left clavicle. The odontoid appears intact. Dental hardware is noted. RAD/Cerv Spine 2 or 3 Views IMPRESSION: There is loss of the lordosis. There is degenerative disc disease at C5-6. Reading Location: [facility] CC: Dr. Binh Mckee, DO; No Primary Care Physician ~ Meter Tester Primary: Signed [facility]12-28-2024 Emergency department Note* Lili Lisa RN - 10/31/2024 8:48 PM EST Pt alert, oriented, NAD, no CP or SOB. Pt discharge instructions reviewed, follow up care encouraged, pharmacy verified and correct. Pt ambulated off unit with visitor, room air, steady gait. [facility]12-28-2024 Emergency department Note* Lili Lisa RN - 10/31/2024 8:48 PM EST Pt alert, oriented, NAD, no CP or SOB. Pt discharge instructions reviewed, follow up care encouraged, pharmacy verified and correct. Pt ambulated off unit with visitor, room air, steady gait. * Lili Lisa RN - 10/31/2024 8:34 PM EST Pt nerve stimulator [employer] system called, spoke with Marina Choi, unable to troubleshoot issue with prompts. Pt encouraged to have managing physician check the integrity of the system. Pt on phone call with this RN and [employer] telephone associate, verbalizes understanding. * Kian Gaston MD - 10/31/2024 7:57 PM EST Emergency Department Report [facility] Service Date:.10/31/24 PCP: Mick Leung Chief Complaint: Chief Complaint Patient presents with Back Pain Pt. Arrives with c/o back pain, pt. Had a nerve stimulator placed last year, and his controller to the unit previously has been able to adjust settings as intended with device. Pt. Reports increasingpain without ability to increase stimulator. HPI Ajit Zhu is a 39 y.o. male presents to the ED with chief complaint of back pain. Patient presents emergency department complaining of increasing back pain. Patient states he has a stimulator in his back which he was placed more than a year ago and [place]. He states he has been having increased pain over the past couple of days and he can not get the stimulator to go up. He states he can not adjust the settings. He states he called the stimulator hotline they suggested he go to the emergencydepartment. He denies any fall or trauma. Denies any fever. Denies any headache or neck stiffness. He denies any weakness in the arms or legs. Denies any bowel or bladder incontinence Review of Systems: Review of Systems Ten systems has been reviewed and are negative unless listed specifically as positive in the HPI Past Medical History: Past Medical History: Diagnosis Date Bipolar disorder Past Surgical History: Past Surgical History: Procedure Laterality Date KNEE SURGERY Right ORIF WRIST Left SHOULDER SURGERY Left Allergies: No Known Allergies Medications: Patient's Medications New Prescriptions PREDNISONE 20 MG TABLET Take 1 tablet by mouth daily. TIZANIDINE 4 MG TABLET Take 1 tablet by mouth 3 times daily for 5 days. Previous Medications AMITRIPTYLINE 50 MG TABLET Take 1-2 tablets by mouth at bedtime. BUPROPION 150 MG TABLET SR CHLORHEXIDINE 0.12 % SOLUTION ORAL SOLUTION Rinse mouth with 15mL for 30sec then spit BID CLONIDINE 0.1 MG TABLET Take 1 tablet by mouth 2 times daily. CYCLOBENZAPRINE 10 MG TABLET Take 1 tablet by mouth at bedtime. DICLOFENAC SODIUM [address] Take 1 tablet by mouth 2 times daily. HYDROCODONE-ACETAMINOPHEN 5-325 MG TABLET Take 1 tablet by mouth every 6 hours as needed for SeverePain (Do not drink alcohol, drive or operate machinery while taking this medication.) for up to 1 day. LAMOTRIGINE 150 MG TABLET TAKE 1 TABLET BY MOUTH IN THE MORNING MELOXICAM 15 MG TABLET Take 1 tablet by mouth daily. OMEPRAZOLE [address] CAPSULE Take 20 mg by mouth daily. PREGABALIN 25 MG CAPSULE Take 1 capsule by mouth at bedtime for 14 days. Then stop. This is a weaning prescription. Modified Medications No medications on file Discontinued Medications No medications on file Family History: History reviewed. No pertinent family history. Social History: Social History Socioeconomic History Marital status: Single Spouse name: Not on file Number of children: Not on file Years of education: Not on file Highest education level: Not on file Occupational History Not on file Tobacco Use Smoking status: Every Day Current packs/day: 0.50 Types: Cigarettes Smokeless tobacco: Current Vaping Use Vaping status: Every Day Substance and Sexual Activity Alcohol use: Yes Comment: rarely Drug use: Not Currently Sexual activity: Not on file Other Topics Concern Not on file Social History Narrative Not on file Social Determinants of Health Financial Resource Strain: Not on file Food Insecurity: Not on file Transportation Needs: Not on file Physical Activity: Not on file Stress: Not on file Social Connections: Not on file Intimate Partner Violence: Not on file Housing Stability: Not on file Physical Exam: Physical Exam General: Well-developed well-nourished HENT: Head is atraumatic. Face is symmetric. Mucous membranes are hydrated Eyes: Pupils are equal Skin: Warm and dry. No rash Abdomen: Soft. No distention guarding or rebound Respiratory: Clear. No wheezing Heart: Heart tones are regular. Capillary refill is brisk Neurologic: Awake, alert, oriented, answering questions appropriately. Moving all extremities well.Gait is narrow based and stable Lymphatic: No lymphedema Musculoskeletal: Patient does have well-healed surgical scars on his back. He does complain of tenderness to palpation of the paraspinal musculature of the lumbosacral area. There is no step-offs no bruising no redness. Psychiatric: Cooperative with the examiner Vital Signs During ED Visit Patient Vitals for the past 24 hrs: BP Temp Temp src Pulse Resp SpO2 Height Weight 10/31/241927 -- -- -- -- -- -- 1.727 m (5' 8) 102.5 kg (226 lb) 10/31/241922 133/68 97.5 F (36.4 C) Temporal 92 17 96 % -- -- Orders/Results: No results found for this visit on 10/31/24. Radiographic Imaging No orders to display Procedures: Procedures Moderate Sedation Procedure: No ED Summary/MDM At this time I did place a call into the neurosurgeon I spoke with him at this time we are unable to adjust a stimulator he will need to have that done through the [employer] rep. We will take care ofhis acute pain at this time. He will return if any worsening symptoms or neurologic abnormality or change. Return if any worsening symptoms Clinical Impression: 1. Acute bilateral low back pain without sciatica No follow-ups on file. New Prescriptions PREDNISONE 20 MG TABLET Take 1 tablet by mouth daily. TIZANIDINE 4 MG TABLET Take 1 tablet by mouth 3 times daily for 5 days. Discontinued Medications No medications on file An After Visit Summary was printed and given to the patient with above information. . Kian Gaston MD 10/31/241999 * AMARA Rodriguez - 10/31/2024 7:[address] Holden contacted for Dr. Gaston at this time [facility]* Lili Lisa RN - 10/31/2024 8:34 PM EST Pt nerve stimulator [employer] system called, spoke with Marina Choi, unable to troubleshoot issue with prompts. Pt encouraged to have managing physician check the integrity of the system. Pt on phone call with this RN and [employer] telephone associate, verbalizes understanding. [facility]12-28-2024 Physician Emergency department Note* Kian Gaston MD - 10/31/2024 7:57 PM EST Emergency Department Report [facility] Service Date:.10/31/24 PCP: Mick Leung Chief Complaint: Chief Complaint Patient presents with Back Pain Pt. Arrives with c/o back pain, pt. Had a nerve stimulator placed last year, and his controller to the unit previously has been able to adjust settings as intended with device. Pt. Reports increasingpain without ability to increase stimulator. HPI Ajit Zhu is a 39 y.o. male presents to the ED with chief complaint of back pain. Patient presents emergency department complaining of increasing back pain. Patient states he has a stimulator in his back which he was placed more than a year ago and [place]. He states he has been having increased pain over the past couple of days and he can not get the stimulator to go up. He states he can not adjust the settings. He states he called the stimulator hotline they suggested he go to the emergencydepartment. He denies any fall or trauma. Denies any fever. Denies any headache or neck stiffness. He denies any weakness in the arms or legs. Denies any bowel or bladder incontinence Review of Systems: Review of Systems Ten systems has been reviewed and are negative unless listed specifically as positive in the HPI Past Medical History: Past Medical History: Diagnosis Date Bipolar disorder Past Surgical History: Past Surgical History: Procedure Laterality Date KNEE SURGERY Right ORIF WRIST Left SHOULDER SURGERY Left Allergies: No Known Allergies Medications: Patient's Medications New Prescriptions PREDNISONE 20 MG TABLET Take 1 tablet by mouth daily. TIZANIDINE 4 MG TABLET Take 1 tablet by mouth 3 times daily for 5 days. Previous Medications AMITRIPTYLINE 50 MG TABLET Take 1-2 tablets by mouth at bedtime. BUPROPION 150 MG TABLET SR CHLORHEXIDINE 0.12 % SOLUTION ORAL SOLUTION Rinse mouth with 15mL for 30sec then spit BID CLONIDINE 0.1 MG TABLET Take 1 tablet by mouth 2 times daily. CYCLOBENZAPRINE 10 MG TABLET Take 1 tablet by mouth at bedtime. DICLOFENAC SODIUM [address] Take 1 tablet by mouth 2 times daily. HYDROCODONE-ACETAMINOPHEN 5-325 MG TABLET Take 1 tablet by mouth every 6 hours as needed for SeverePain (Do not drink alcohol, drive or operate machinery while taking this medication.) for up to 1 day. LAMOTRIGINE 150 MG TABLET TAKE 1 TABLET BY MOUTH IN THE MORNING MELOXICAM 15 MG TABLET Take 1 tablet by mouth daily. OMEPRAZOLE [address] CAPSULE Take 20 mg by mouth daily. PREGABALIN 25 MG CAPSULE Take 1 capsule by mouth at bedtime for 14 days. Then stop. This is a weaning prescription. Modified Medications No medications on file Discontinued Medications No medications on file Family History: History reviewed. No pertinent family history. Social History: Social History Socioeconomic History Marital status: Single Spouse name: Not on file Number of children: Not on file Years of education: Not on file Highest education level: Not on file Occupational History Not on file Tobacco Use Smoking status: Every Day Current packs/day: 0.50 Types: Cigarettes Smokeless tobacco: Current Vaping Use Vaping status: Every Day Substance and Sexual Activity Alcohol use: Yes Comment: rarely Drug use: Not Currently Sexual activity: Not on file Other Topics Concern Not on file Social History Narrative Not on file Social Determinants of Health Financial Resource Strain: Not on file Food Insecurity: Not on file Transportation Needs: Not on file Physical Activity: Not on file Stress: Not on file Social Connections: Not on file Intimate Partner Violence: Not on file Housing Stability: Not on file Physical Exam: Physical Exam General: Well-developed well-nourished HENT: Head is atraumatic. Face is symmetric. Mucous membranes are hydrated Eyes: Pupils are equal Skin: Warm and dry. No rash Abdomen: Soft. No distention guarding or rebound Respiratory: Clear. No wheezing Heart: Heart tones are regular. Capillary refill is brisk Neurologic: Awake, alert, oriented, answering questions appropriately. Moving all extremities well.Gait is narrow based and stable Lymphatic: No lymphedema Musculoskeletal: Patient does have well-healed surgical scars on his back. He does complain of tenderness to palpation of the paraspinal musculature of the lumbosacral area. There is no step-offs no bruising no redness. Psychiatric: Cooperative with the examiner Vital Signs During ED Visit Patient Vitals for the past 24 hrs: BP Temp Temp src Pulse Resp SpO2 Height Weight 10/31/241927 -- -- -- -- -- -- 1.727 m (5' 8) 102.5 kg (226 lb) 10/31/241922 133/68 97.5 F (36.4 C) Temporal 92 17 96 % -- -- Orders/Results: No results found for this visit on 10/31/24. Radiographic Imaging No orders to display Procedures: Procedures Moderate Sedation Procedure: No ED Summary/MDM At this time I did place a call into the neurosurgeon I spoke with him at this time we are unable to adjust a stimulator he will need to have that done through the [employer] rep. We will take care ofhis acute pain at this time. He will return if any worsening symptoms or neurologic abnormality or change. Return if any worsening symptoms Clinical Impression: 1. Acute bilateral low back pain without sciatica No follow-ups on file. New Prescriptions PREDNISONE 20 MG TABLET Take 1 tablet by mouth daily. TIZANIDINE 4 MG TABLET Take 1 tablet by mouth 3 times daily for 5 days. Discontinued Medications No medications on file An After Visit Summary was printed and given to the patient with above information. . Kian Gaston MD 10/31/241999 [facility]12-28[facility] Emergency department Note* AMARA Rodriguez - 10/31/2024 7:[address] Holden contacted for Dr. Gaston at this time [facility]11-06-2024 Hospital Discharge instructions* Discharge Instructions* Gisella Irving, CORRECTIONAL SERGEANT-FIBERGLASS TECHNICIAN - 09/09/2024 9:02 PM EST Your Panorex showed: Multiple dental caries, most pronounced involving teeth # 13 and 14. A large periapical lucency involves what appears to be the left maxillary second premolar. Additional smaller scattered periapical lucencies include teeth # 3, 5, and 10. IMPRESSION IMPRESSION: 1. Large periapical lucency involving what appears to be the left maxillary second premolar (tooth#13), which can be seen with dental infection, particularly given the clinical setting. Facial CT with contrast could be obtained to assess for associated soft tissue abscess. 2. Multiple dental caries with associated smaller scattered periapical lucencies including teeth # 3, 5, and 10 NOTE: You should visit the [facility] for your urgent dental care. [facility] is located at [address] [place] [address]. Patients are seen on a first-come basis. Clinic hours are 7:30am to 12:00pm Saturday through Saturday, with a 15 patient limit. Fees typically range from $127.00 - $196.00 depending on services provided. [facility] and its clinics are closed on weekends and University holidays. Most [employer] and state-sponsored dental insurances are accepted. Co-pays are collected at timeof service. Non-[employer] insurance holders may be required to pay the fee-for service in full prior tobeing reimbursed by their insurance program. For any questions, please call [phone]. [facility] does not validate parking. Parking information can be found [email or web address]. CLINICAL WAREHOUSE TRAFFIC SUPERVISOR If you need any further assistance with scheduling follow up care, please call the Clinical Personal Support Worker at . NOTE: * Attachments The following attachments cannot be sent through Care Everywhere. * Tooth and Gum Pain (Slovenian) [facility] Emergency department Note* LESLYE Murry - 09/09/2024 7:31 PM EST dEPARTMENT of Emergency Medicine CHIEF COMPLAINT Dental Pain HPI History of Present Illness The patient presents for evaluation of a broken tooth. Ajit Zhu is a 39 y/o male who reports that his tooth broke last night, resulting in two holesin his gums. This has caused swelling on the left side of his face, extending to the lower part of his eye. He is currently experiencing pain, which has forced him to chew on the right side of his mouth. Despite taking Tylenol and using Orajel, he has not found relief from the pain. He also reportsfeeling warm. He has previously sought dental care for this issue, but the filling has since fallen out and he has been unable to secure another appointment. He has bipolar disorder and is on medication for management. REVIEW OF SYSTEMS Review of Systems Constitutional: Negative for chills and fever. HENT: Positive for dental problem. Respiratory: Negative for shortness of breath. Cardiovascular: Negative for chest pain. Gastrointestinal: Negative for abdominal pain. Genitourinary: Negative. Musculoskeletal: Negative. Neurological: Negative for headaches. Psychiatric/Behavioral: Negative. PAST MEDICAL HISTORY Past Medical History: Diagnosis Date Bipolar disorder SURGICAL HISTORY Past Surgical History: Procedure Laterality Date KNEE SURGERY Right ORIF WRIST Left SHOULDER SURGERY Left CURRENT MEDICATIONS Current Facility-Administered Medications Medication Dose Route Frequency Provider Last Rate Last Admin hydroCODone-acetaminophen (NORCO) 5-325 MG per tablet 1 tablet 1 tablet Oral Once Gisella Irving, CORRECTIONAL SERGEANT-FIBERGLASS TECHNICIAN Current Outpatient Medications Medication Sig Dispense Refill amitriptyline 50 MG tablet Take 50-100 mg by mouth at bedtime. (Patient not taking: Reported on 06/11/2022) buPROPion 150 MG tablet SR TAKE 2 TABLETS BY MOUTH IN THE MORNING (Patient not taking: Reported on 06/11/2022) cloNIDine 0.1 MG tablet Take 0.1 mg by mouth 2 times daily. (Patient not taking: Reported on 06/11/2022) cyclobenzaprine 10 MG tablet Take 1 tablet by mouth at bedtime. (Patient not taking: Reported on 06/11/2022) 30 tablet 2 diclofenac sodium [address] Take 1 tablet by mouth 2 times daily. (Patient not taking: Reported on 06/11/2022) 60 tablet 2 lamoTRIgine 150 MG tablet TAKE 1 TABLET BY MOUTH IN THE MORNING (Patient not taking: Reported on 06/11/2022) meloxicam 15 MG tablet Take 1 tablet by mouth daily. (Patient not taking: Reported on 10/13/2021) 30 tablet 2 omeprazole [address] capsule Take 20 mg by mouth daily. (Patient not taking: Reported on 06/11/2022) pregabalin 25 MG capsule Take 1 capsule by mouth at bedtime for 14 days. Then stop. This is a weaning prescription. (Patient not taking: Reported on 06/11/2022) 14 capsule 0 ALLERGIES No Known Allergies FAMILY HISTORY History reviewed. No pertinent family history. SOCIAL HISTORY Social History Socioeconomic History Marital status: Single Spouse name: Not on file Number of children: Not on file Years of education: Not on file Highest education level: Not on file Occupational History Not on file Tobacco Use Smoking status: Every Day Current packs/day: 0.50 Types: Cigarettes Smokeless tobacco: Current Vaping Use Vaping status: Every Day Substance and Sexual Activity Alcohol use: Yes Comment: rarely Drug use: Not Currently Sexual activity: Not on file Other Topics Concern Not on file Social History Narrative Not on file Social Determinants of Health Financial Resource Strain: Not on file Food Insecurity: Not on file Transportation Needs: Not on file Physical Activity: Not on file Stress: Not on file Social Connections: Not on file Intimate Partner Violence: Not on file Housing Stability: Not on file PHYSICAL EXAM BP 151/83 Pulse 93 Temp 98.3 F (36.8 C) (Oral) Resp 16 Ht 1.727 m (5' 8) Wt 102.9 kg (226 lb 12.8 oz) SpO2 97% BMI 34.48 kg/m Smoking Status Every Day Physical Exam Constitutional: General: He is not in acute distress. Appearance: Normal appearance. He is not ill-appearing or toxic-appearing. HENT: Head: Normocephalic and atraumatic. Mouth/Throat: Mouth: Mucous membranes are moist. Dentition: Abnormal dentition. Pharynx: Oropharynx is clear. Comments: Teeth missing in upper and lower jaw. Tooth # 14 broken off to base of gum line. Gingival swelling around tooth. No trismus noted. Minimal facial swelling. Cardiovascular: Rate and Rhythm: Tachycardia present. Pulmonary: Effort: Pulmonary effort is normal. Abdominal: Palpations: Abdomen is soft. Musculoskeletal: General: Normal range of motion. Skin: General: Skin is warm. Findings: No erythema. Neurological: Mental Status: He is alert. Physical Exam ED COURSE & MEDICAL DECISION MAKING Results Assessment & Plan [place] 5/325 mg x 1 Panorex: 1. Large periapical lucency involving what appears to be the left maxillary second premolar (tooth#13), which can be seen with dental infection, particularly given the clinical setting. Facial CT with contrast could be obtained to assess for associated soft tissue abscess. 2. Multiple dental caries with associated smaller scattered periapical lucencies including teeth # 3, 5, and 10 OMFS consult. Oral surgery can down with extraction of tooth and opening pocket. Discharged on Augmentin bid x 7 days. Peridex mouth wash bid Return to the Emergency Department with facial swelling, worsening facial pain, fever > 101.0, respiratory distress or any other concerning symptoms. Medical Decision Making Amount and/or Complexity of Data Reviewed Radiology: ordered. Risk Prescription drug management. Diagnosis: Left Facial Pain Tooth Pain LESLYE Murry 09/09/24 [id number] [facility] Emergency department Note* LESLYE Murry - 09/09/2024 7:31 PM EST dEPARTMENT of Emergency Medicine CHIEF COMPLAINT Dental Pain HPI History of Present Illness The patient presents for evaluation of a broken tooth. Ajit Zhu is a 39 y/o male who reports that his tooth broke last night, resulting in two holesin his gums. This has caused swelling on the left side of his face, extending to the lower part of his eye. He is currently experiencing pain, which has forced him to chew on the right side of his mouth. Despite taking Tylenol and using Orajel, he has not found relief from the pain. He also reportsfeeling warm. He has previously sought dental care for this issue, but the filling has since fallen out and he has been unable to secure another appointment. He has bipolar disorder and is on medication for management. REVIEW OF SYSTEMS Review of Systems Constitutional: Negative for chills and fever. HENT: Positive for dental problem. Respiratory: Negative for shortness of breath. Cardiovascular: Negative for chest pain. Gastrointestinal: Negative for abdominal pain. Genitourinary: Negative. Musculoskeletal: Negative. Neurological: Negative for headaches. Psychiatric/Behavioral: Negative. PAST MEDICAL HISTORY Past Medical History: Diagnosis Date Bipolar disorder SURGICAL HISTORY Past Surgical History: Procedure Laterality Date KNEE SURGERY Right ORIF WRIST Left SHOULDER SURGERY Left CURRENT MEDICATIONS Current Facility-Administered Medications Medication Dose Route Frequency Provider Last Rate Last Admin hydroCODone-acetaminophen (NORCO) 5-325 MG per tablet 1 tablet 1 tablet Oral Once LESLYE Murry Current Outpatient Medications Medication Sig Dispense Refill amitriptyline 50 MG tablet Take 50-100 mg by mouth at bedtime. (Patient not taking: Reported on 06/11/2022) buPROPion 150 MG tablet SR TAKE 2 TABLETS BY MOUTH IN THE MORNING (Patient not taking: Reported on 06/11/2022) cloNIDine 0.1 MG tablet Take 0.1 mg by mouth 2 times daily. (Patient not taking: Reported on 06/11/2022) cyclobenzaprine 10 MG tablet Take 1 tablet by mouth at bedtime. (Patient not taking: Reported on 06/11/2022) 30 tablet 2 diclofenac sodium [address] Take 1 tablet by mouth 2 times daily. (Patient not taking: Reported on 06/11/2022) 60 tablet 2 lamoTRIgine 150 MG tablet TAKE 1 TABLET BY MOUTH IN THE MORNING (Patient not taking: Reported on 06/11/2022) meloxicam 15 MG tablet Take 1 tablet by mouth daily. (Patient not taking: Reported on 10/13/2021) 30 tablet 2 omeprazole [address] capsule Take 20 mg by mouth daily. (Patient not taking: Reported on 06/11/2022) pregabalin 25 MG capsule Take 1 capsule by mouth at bedtime for 14 days. Then stop. This is a weaning prescription. (Patient not taking: Reported on 06/11/2022) 14 capsule 0 ALLERGIES No Known Allergies FAMILY HISTORY History reviewed. No pertinent family history. SOCIAL HISTORY Social History Socioeconomic History Marital status: Single Spouse name: Not on file Number of children: Not on file Years of education: Not on file Highest education level: Not on file Occupational History Not on file Tobacco Use Smoking status: Every Day Current packs/day: 0.50 Types: Cigarettes Smokeless tobacco: Current Vaping Use Vaping status: Every Day Substance and Sexual Activity Alcohol use: Yes Comment: rarely Drug use: Not Currently Sexual activity: Not on file Other Topics Concern Not on file Social History Narrative Not on file Social Determinants of Health Financial Resource Strain: Not on file Food Insecurity: Not on file Transportation Needs: Not on file Physical Activity: Not on file Stress: Not on file Social Connections: Not on file Intimate Partner Violence: Not on file Housing Stability: Not on file PHYSICAL EXAM BP 151/83 Pulse 93 Temp 98.3 F (36.8 C) (Oral) Resp 16 Ht 1.727 m (5' 8) Wt 102.9 kg (226 lb 12.8 oz) SpO2 97% BMI 34.48 kg/m Smoking Status Every Day Physical Exam Constitutional: General: He is not in acute distress. Appearance: Normal appearance. He is not ill-appearing or toxic-appearing. HENT: Head: Normocephalic and atraumatic. Mouth/Throat: Mouth: Mucous membranes are moist. Dentition: Abnormal dentition. Pharynx: Oropharynx is clear. Comments: Teeth missing in upper and lower jaw. Tooth # 14 broken off to base of gum line. Gingival swelling around tooth. No trismus noted. Minimal facial swelling. Cardiovascular: Rate and Rhythm: Tachycardia present. Pulmonary: Effort: Pulmonary effort is normal. Abdominal: Palpations: Abdomen is soft. Musculoskeletal: General: Normal range of motion. Skin: General: Skin is warm. Findings: No erythema. Neurological: Mental Status: He is alert. Physical Exam ED COURSE & MEDICAL DECISION MAKING Results Assessment & Plan [place] 5/325 mg x 1 Panorex: 1. Large periapical lucency involving what appears to be the left maxillary second premolar (tooth#13), which can be seen with dental infection, particularly given the clinical setting. Facial CT with contrast could be obtained to assess for associated soft tissue abscess. 2. Multiple dental caries with associated smaller scattered periapical lucencies including teeth # 3, 5, and 10 OMFS consult. Oral surgery can down with extraction of tooth and opening pocket. Discharged on Augmentin bid x 7 days. Peridex mouth wash bid Return to the Emergency Department with facial swelling, worsening facial pain, fever > 101.0, respiratory distress or any other concerning symptoms. Medical Decision Making Amount and/or Complexity of Data Reviewed Radiology: ordered. Risk Prescription drug management. Diagnosis: Left Facial Pain Tooth Pain LESLYE Murry 09/09/24 2340 * Ag Santos RN - 09/09/2024 4:22 PM EST Pt presents to the ED with dental pain , jaw swelling. Pt walking with steady gait, NAD, A&Ox4,GCS15, Respirations even and unlabored. [facility]* Ag Santos RN - 09/09/2024 4:22 PM EST Pt presents to the ED with dental pain , jaw swelling. Pt walking with steady gait, NAD, A&Ox4,GCS15, Respirations even and unlabored. [facility]10-20-2024 Emergency department Note* Davy Chacon RN - 08/23/2024 9:05 PM EDT Pt ambulatory out of ER, gait steady. Pt verbalizes understanding of the discharge instructions andto follow up with PCP. Pt ambulatory out of ER with - providing transport home. [facility]10-20-2024 Emergency department Note* Davy Chacon RN - 08/23/2024 9:05 PM EDT Pt ambulatory out of ER, gait steady. Pt verbalizes understanding of the discharge instructions andto follow up with PCP. Pt ambulatory out of ER with - providing transport home. * Eligio Milton MD - 08/23/2024 8:45 PM EDT Patient was seen by myself with PA. CT abdomen is negative for acute pathology. Patient has RLQ pain. Labs reviewed and normal except ALT that is 63. Patient discharged to follow up with primary doctor. If symptoms persist he may need scope. If worse come back to ER. Patient is comfortable going home and understands discharge and follow up instructions. Eligio Milton MD 08/23/242046 * Davy Chacon RN - 08/23/2024 7:25 PM EDT Urine obtained and given to lab. Larry notified. Urine is pale yellow and clear * LESLYE Banks - 08/23/2024 6:30 PM EDT Emergency Department Report [facility] Service Date:.08/23/24 PCP: Alexa Griggs Chief Complaint: Chief Complaint Patient presents with Abdominal Pain Pt reports right lower abdominal pain and feeling like I am going to throw up. Pt states ongoing for several weeks but worsening over the past hour or so. Pt rates pain 10/10 HPI Ajit Zhu is a 39 y.o. male presents to the ED today due to right lower abdominal pain. Patientreports he has had right lower abdominal pain for several weeks but has been worsening. He reports he does have diarrhea with blood in the diarrhea. He denies any prior abdominal pathologies. Denies any fever but does report having chills. Reports occasional nausea no vomiting. No urinary frequencyor urgency or pain. No flank pain or tenderness. Review of Systems: Review of Systems Constitutional: Negative. HENT: Negative. Eyes: Negative. Respiratory: Negative. Cardiovascular: Negative. Gastrointestinal: Positive for abdominal pain, blood in stool and diarrhea. Endocrine: Negative. Genitourinary: Negative. Musculoskeletal: Negative. Skin: Negative. Allergic/Immunologic: Negative. Neurological: Negative. Hematological: Negative. Psychiatric/Behavioral: Negative. Past Medical History: Past Medical History: Diagnosis Date Bipolar disorder Past Surgical History: Past Surgical History: Procedure Laterality Date KNEE SURGERY Right ORIF WRIST Left SHOULDER SURGERY Left Allergies: No Known Allergies Medications: Patient's Medications New Prescriptions No medications on file Previous Medications AMITRIPTYLINE 50 MG TABLET Take 50-100 mg by mouth at bedtime. BUPROPION 150 MG TABLET SR TAKE 2 TABLETS BY MOUTH IN THE MORNING CLONIDINE 0.1 MG TABLET Take 0.1 mg by mouth 2 times daily. CYCLOBENZAPRINE 10 MG TABLET Take 1 tablet by mouth at bedtime. DICLOFENAC SODIUM [address] Take 1 tablet by mouth 2 times daily. LAMOTRIGINE 150 MG TABLET TAKE 1 TABLET BY MOUTH IN THE MORNING MELOXICAM 15 MG TABLET Take 1 tablet by mouth daily. OMEPRAZOLE [address] CAPSULE Take 20 mg by mouth daily. PREGABALIN 25 MG CAPSULE Take 1 capsule by mouth at bedtime for 14 days. Then stop. This is a weaning prescription. Modified Medications No medications on file Discontinued Medications No medications on file Family History: No family history on file. Social History: Social History Socioeconomic History Marital status: Single Spouse name: Not on file Number of children: Not on file Years of education: Not on file Highest education level: Not on file Occupational History Not on file Tobacco Use Smoking status: Every Day Current packs/day: 0.50 Types: Cigarettes Smokeless tobacco: Current Vaping Use Vaping status: Every Day Substance and Sexual Activity Alcohol use: Yes Comment: rarely Drug use: Not Currently Sexual activity: Not on file Other Topics Concern Not on file Social History Narrative Not on file Social Determinants of Health Financial Resource Strain: Not on file Food Insecurity: Not on file Transportation Needs: Not on file Physical Activity: Not on file Stress: Not on file Social Connections: Not on file Intimate Partner Violence: Not on file Housing Stability: Not on file Physical Exam: Physical Exam Vitals and nursing note reviewed. Constitutional: General: He is not in acute distress. Appearance: He is not ill-appearing. HENT: Head: Normocephalic and atraumatic. Nose: Nose normal. Mouth/Throat: Mouth: Mucous membranes are moist. Pharynx: Oropharynx is clear. Eyes: Extraocular Movements: Extraocular movements intact. Conjunctiva/sclera: Conjunctivae normal. Pupils: Pupils are equal, round, and reactive to light. Cardiovascular: Rate and Rhythm: Normal rate and regular rhythm. Pulmonary: Effort: Pulmonary effort is normal. No respiratory distress. Breath sounds: Normal breath sounds. Abdominal: General: Abdomen is flat. Bowel sounds are normal. There is no distension or abdominal bruit. Thereare no signs of injury. Palpations: Abdomen is soft. There is no shifting dullness, fluid wave, hepatomegaly, splenomegaly,mass or pulsatile mass. Tenderness: There is abdominal tenderness in the right lower quadrant. There is no right CVA tenderness, left CVA tenderness, guarding or rebound. Negative signs include Valdez's sign, Rovsing's sign, McBurney's sign, psoas sign and obturator sign. Hernia: No hernia is present. Musculoskeletal: Cervical back: Normal range of motion. Skin: General: Skin is warm and dry. Neurological: General: No focal deficit present. Mental Status: He is alert and oriented to person, place, and time. Psychiatric: Mood and Affect: Mood normal. Vital Signs During ED Visit Patient Vitals for the past 24 hrs: BP Temp Temp src Pulse Resp SpO2 Height Weight 08/23/24 1728 124/68 98.4 F (36.9 C) Oral 86 18 98 % 1.727 m (5' 8) 90.7 kg (200 lb) Orders/Results: Orders Placed This Encounter CT ABDOMEN/PELVIS WITH CONTRAST COMPREHENSIVE METABOLIC PANEL MAGNESIUM CBC, EDIF, PLATELET PROTIME-INR LACTATE, BLOOD LACTATE, BLOOD SEDIMENTATION RATE, AUTOMATED C REACTIVE PROTEIN Sodium chloride 0.9% IV solution 1,000 mL Ondansetron 4mg/2ml (ZOFRAN) injection 4 mg HYDROmorphone (DILAUDID) injection 1 mg iohexol (OMNIPAQUE) 350 MG/ML injection 75 mL Sodium chloride 0.9% IV solution 75 mL HYDROmorphone (DILAUDID) injection 1 mg Results for orders placed or performed during the hospital encounter of 08/23/24 CT ABDOMEN/PELVIS WITH CONTRAST Result Value Ref Range BSA 2.04 m2 COMPREHENSIVE METABOLIC PANEL Result Value Ref Range Glucose 97 70 - 100 MG/DL BUN 12 7 - 20 MG/DL CREATININE SERUM 1.00 0.70 - 1.20 MG/DL SODIUM 140 137 - 145 MMOL/L POTASSIUM 3.8 3.5 - 5.1 MMOL/L CHLORIDE 112 (H) 98 - 107 MMOL/L CALCIUM 9.5 8.4 - 10.2 MG/DL PROTEIN, TOTAL 7.4 6.3 - 8.2 GM/DL Albumin 4.5 3.5 - 5.0 G/dl BILIRUBIN, TOTAL 0.7 0.2 - 1.3 MG/DL AST 53 17 - 59 IU/L ALKALINE PHOSPHATASE 106 38 - 126 IU/L CARBON DIOXIDE (CO2) 23 22 - 30 MMOL/L A/G Ratio 1.6 RATIO ALT 63 (H) <50 IU/L ESTIMATED GFR, NON AMER 88 ml/min/1.73sq.m ESTIMATED GFR, 106 ml/min/1.73sq.m GFR COMMENT Average GFR for 40-49 years old = 99. MAGNESIUM Result Value Ref Range MAGNESIUM 2.1 1.6 - 2.3 MG/DL CBC, EDIF, PLATELET Result Value Ref Range WBC (WHITE BLOOD COUNT) 10.3 3.6 - 11.0 10*3/uL RBC 4.76 4.0 - 6.1 10*6/uL HEMOGLOBIN (HGB) 15.7 14.0 - 18.0 G/DL HEMATOCRIT (HCT) 45.5 42.0 - 52.0 % MEAN CELL VOLUME 95.6 80.0 - 100.0 FL Mean Cell HGB 32.9 26.0 - 35.0 PG MEAN CELL HGB CONCENTRATION 34.5 27.0 - 37.0 G/DL RBC DISTRIBUTION 13.7 11.5 - 14.5 % PLATELET COUNT 198 130 - 400 10*3/uL MEAN PLATELET VOLUME 10.3 7.4 - 11.0 FL DIFFERENTIAL TYPE AUTO DIFF % NEUTROPHILS 65.3 37.0 - 75.0 % LYMPHOCYTE 25.0 20.0 - 55.0 % MONOCYTE % 7.5 0.0 - 10.0 % EOSINOPHIL % 1.7 0.0 - 11.0 % BASOPHIL % 0.5 0.0 - 2.0 % Absolute Neutrophil Count 6.7 (H) 1.4 - 6.5 10*3/uL LYMPHOCYTES, ABSOLUTE 2.6 1.2 - 3.4 10*3/uL MONOCYTES, ABSOLUTE 0.8 (H) 0.0 - 0.7 10*3/uL ABSOLUTE EOSINOPHIL COUNT 0.2 0.0 - 0.7 10*3/uL ABSOLUTE BASOPHIL COUNT 0.1 0.0 - 0.2 10*3/uL PROTIME-INR Result Value Ref Range PT 12.0 11.8 - 14.4 SEC INR 0.88 0.85 - 1.10 LACTATE, BLOOD Result Value Ref Range LACTATE 1.1 0.7 - 2.0 mmol/L SEDIMENTATION RATE, AUTOMATED Result Value Ref Range SEDIMENTATION RATE AUTOMATED 12 0 - 15 MM/HR C REACTIVE PROTEIN Result Value Ref Range C-Reactive Protein 6.5 0 - 10 MG/L Radiographic Imaging CT ABDOMEN/PELVIS WITH CONTRAST Procedures: Procedures Moderate Sedation Procedure: No ED Summary/MDM Right lower quadrant abdominal pain. Differential diagnosis include but are not limited to acute appendicitis, acute diverticulitis, ulcerative colitis. Review of laboratory studies lactic acid is normal. Chemistries are unremarkable. Coags and CBC are unremarkable. Sed rate and C-reactive protein are negative. At this time CT abdomen pelvis with contrast is pending. Patient was given 1 L fluid jenny kimmy normal saline for hydration. 4 mg of Zofran for nausea control. Initially was given 1 mg of Dilaudid for pain control. States this did not control his pain repeat dose was given. At this time we are pending CT results for final disposition. Case was discussed with ER attending Dr. Milton. Pleasesee Dr. Gonzales's notes for completed disposition on this patient. Case was turned over to ER attendings care due to change of shift. At this time patient was alert oriented stable no acute distress inhis pending final disposition. Clinical Impression: 1. RLQ abdominal pain No follow-ups on file. New Prescriptions No medications on file Discontinued Medications No medications on file An After Visit Summary was printed and given to the patient with above information. . . LESLYE Banks 08/23/241911 [facility] Discharge [facility]* Discharge Instructions* Eligio Milton MD - 08/23/2024 8:48 PM EDT Call your doctor for follow up. Increase fluids at home. Take Tylenol 650 mg every 6 hours for pain. If worse come back to ER * Attachments The following attachments cannot be sent through Care Everywhere. * Abdominal Pain (Slovenian) [facility] Emergency department Note* Eligio Milton MD - 08/23/2024 8:45 PM EDT Patient was seen by myself with PA. CT abdomen is negative for acute pathology. Patient has RLQ pain. Labs reviewed and normal except ALT that is 63. Patient discharged to follow up with primary doctor. If symptoms persist he may need scope. If worse come back to ER. Patient is comfortable going home and understands discharge and follow up instructions. Eligio Milton MD 08/23/242046 [facility] Work Phone: [phone] Emergency department Note* Davy Chacon RN - 08/23/2024 7:25 PM EDT Urine obtained and given to lab. Larry notified. Urine is pale yellow and clear [facility]10-20-2024 Physician Emergency department Note* LESLYE Banks - 08/23/2024 6:30 PM EDT Emergency Department Report [facility]PART[facility] Service Date:.08/23/24 PCP: Alexa Griggs Chief Complaint: Chief Complaint Patient presents with Abdominal Pain Pt reports right lower abdominal pain and feeling like I am going to throw up. Pt states ongoing for several weeks but worsening over the past hour or so. Pt rates pain 10/10 HPI Ajit Zhu is a 39 y.o. male presents to the ED today due to right lower abdominal pain. Patientreports he has had right lower abdominal pain for several weeks but has been worsening. He reports he does have diarrhea with blood in the diarrhea. He denies any prior abdominal pathologies. Denies any fever but does report having chills. Reports occasional nausea no vomiting. No urinary frequencyor urgency or pain. No flank pain or tenderness. Review of Systems: Review of Systems Constitutional: Negative. HENT: Negative. Eyes: Negative. Respiratory: Negative. Cardiovascular: Negative. Gastrointestinal: Positive for abdominal pain, blood in stool and diarrhea. Endocrine: Negative. Genitourinary: Negative. Musculoskeletal: Negative. Skin: Negative. Allergic/Immunologic: Negative. Neurological: Negative. Hematological: Negative. Psychiatric/Behavioral: Negative. Past Medical History: Past Medical History: Diagnosis Date Bipolar disorder Past Surgical History: Past Surgical History: Procedure Laterality Date KNEE SURGERY Right ORIF WRIST Left SHOULDER SURGERY Left Allergies: No Known Allergies Medications: Patient's Medications New Prescriptions No medications on file Previous Medications AMITRIPTYLINE 50 MG TABLET Take 50-100 mg by mouth at bedtime. BUPROPION 150 MG TABLET SR TAKE 2 TABLETS BY MOUTH IN THE MORNING CLONIDINE 0.1 MG TABLET Take 0.1 mg by mouth 2 times daily. CYCLOBENZAPRINE 10 MG TABLET Take 1 tablet by mouth at bedtime. DICLOFENAC SODIUM [address] Take 1 tablet by mouth 2 times daily. LAMOTRIGINE 150 MG TABLET TAKE 1 TABLET BY MOUTH IN THE MORNING MELOXICAM 15 MG TABLET Take 1 tablet by mouth daily. OMEPRAZOLE [address] CAPSULE Take 20 mg by mouth daily. PREGABALIN 25 MG CAPSULE Take 1 capsule by mouth at bedtime for 14 days. Then stop. This is a weaning prescription. Modified Medications No medications on file Discontinued Medications No medications on file Family History: No family history on file. Social History: Social History Socioeconomic History Marital status: Single Spouse name: Not on file Number of children: Not on file Years of education: Not on file Highest education level: Not on file Occupational History Not on file Tobacco Use Smoking status: Every Day Current packs/day: 0.50 Types: Cigarettes Smokeless tobacco: Current Vaping Use Vaping status: Every Day Substance and Sexual Activity Alcohol use: Yes Comment: rarely Drug use: Not Currently Sexual activity: Not on file Other Topics Concern Not on file Social History Narrative Not on file Social Determinants of Health Financial Resource Strain: Not on file Food Insecurity: Not on file Transportation Needs: Not on file Physical Activity: Not on file Stress: Not on file Social Connections: Not on file Intimate Partner Violence: Not on file Housing Stability: Not on file Physical Exam: Physical Exam Vitals and nursing note reviewed. Constitutional: General: He is not in acute distress. Appearance: He is not ill-appearing. HENT: Head: Normocephalic and atraumatic. Nose: Nose normal. Mouth/Throat: Mouth: Mucous membranes are moist. Pharynx: Oropharynx is clear. Eyes: Extraocular Movements: Extraocular movements intact. Conjunctiva/sclera: Conjunctivae normal. Pupils: Pupils are equal, round, and reactive to light. Cardiovascular: Rate and Rhythm: Normal rate and regular rhythm. Pulmonary: Effort: Pulmonary effort is normal. No respiratory distress. Breath sounds: Normal breath sounds. Abdominal: General: Abdomen is flat. Bowel sounds are normal. There is no distension or abdominal bruit. Thereare no signs of injury. Palpations: Abdomen is soft. There is no shifting dullness, fluid wave, hepatomegaly, splenomegaly,mass or pulsatile mass. Tenderness: There is abdominal tenderness in the right lower quadrant. There is no right CVA tenderness, left CVA tenderness, guarding or rebound. Negative signs include Valdez's sign, Rovsing's sign, McBurney's sign, psoas sign and obturator sign. Hernia: No hernia is present. Musculoskeletal: Cervical back: Normal range of motion. Skin: General: Skin is warm and dry. Neurological: General: No focal deficit present. Mental Status: He is alert and oriented to person, place, and time. Psychiatric: Mood and Affect: Mood normal. Vital Signs During ED Visit Patient Vitals for the past 24 hrs: BP Temp Temp src Pulse Resp SpO2 Height Weight 08/23/24 1728 124/68 98.4 F (36.9 C) Oral 86 18 98 % 1.727 m (5' 8) 90.7 kg (200 lb) Orders/Results: Orders Placed This Encounter CT ABDOMEN/PELVIS WITH CONTRAST COMPREHENSIVE METABOLIC PANEL MAGNESIUM CBC, EDIF, PLATELET PROTIME-INR LACTATE, BLOOD LACTATE, BLOOD SEDIMENTATION RATE, AUTOMATED C REACTIVE PROTEIN Sodium chloride 0.9% IV solution 1,000 mL Ondansetron 4mg/2ml (ZOFRAN) injection 4 mg HYDROmorphone (DILAUDID) injection 1 mg iohexol (OMNIPAQUE) 350 MG/ML injection 75 mL Sodium chloride 0.9% IV solution 75 mL HYDROmorphone (DILAUDID) injection 1 mg Results for orders placed or performed during the hospital encounter of 08/23/24 CT ABDOMEN/PELVIS WITH CONTRAST Result Value Ref Range BSA 2.04 m2 COMPREHENSIVE METABOLIC PANEL Result Value Ref Range Glucose 97 70 - 100 MG/DL BUN 12 7 - 20 MG/DL CREATININE SERUM 1.00 0.70 - 1.20 MG/DL SODIUM 140 137 - 145 MMOL/L POTASSIUM 3.8 3.5 - 5.1 MMOL/L CHLORIDE 112 (H) 98 - 107 MMOL/L CALCIUM 9.5 8.4 - 10.2 MG/DL PROTEIN, TOTAL 7.4 6.3 - 8.2 GM/DL Albumin 4.5 3.5 - 5.0 G/dl BILIRUBIN, TOTAL 0.7 0.2 - 1.3 MG/DL AST 53 17 - 59 IU/L ALKALINE PHOSPHATASE 106 38 - 126 IU/L CARBON DIOXIDE (CO2) 23 22 - 30 MMOL/L A/G Ratio 1.6 RATIO ALT 63 (H) <50 IU/L ESTIMATED GFR, NON AMER 88 ml/min/1.73sq.m ESTIMATED GFR, 106 ml/min/1.73sq.m GFR COMMENT Average GFR for 40-49 years old = 99. MAGNESIUM Result Value Ref Range MAGNESIUM 2.1 1.6 - 2.3 MG/DL CBC, EDIF, PLATELET Result Value Ref Range WBC (WHITE BLOOD COUNT) 10.3 3.6 - 11.0 10*3/uL RBC 4.76 4.0 - 6.1 10*6/uL HEMOGLOBIN (HGB) 15.7 14.0 - 18.0 G/DL HEMATOCRIT (HCT) 45.5 42.0 - 52.0 % MEAN CELL VOLUME 95.6 80.0 - 100.0 FL Mean Cell HGB 32.9 26.0 - 35.0 PG MEAN CELL HGB CONCENTRATION 34.5 27.0 - 37.0 G/DL RBC DISTRIBUTION 13.7 11.5 - 14.5 % PLATELET COUNT 198 130 - 400 10*3/uL MEAN PLATELET VOLUME 10.3 7.4 - 11.0 FL DIFFERENTIAL TYPE AUTO DIFF % NEUTROPHILS 65.3 37.0 - 75.0 % LYMPHOCYTE 25.0 20.0 - 55.0 % MONOCYTE % 7.5 0.0 - 10.0 % EOSINOPHIL % 1.7 0.0 - 11.0 % BASOPHIL % 0.5 0.0 - 2.0 % Absolute Neutrophil Count 6.7 (H) 1.4 - 6.5 10*3/uL LYMPHOCYTES, ABSOLUTE 2.6 1.2 - 3.4 10*3/uL MONOCYTES, ABSOLUTE 0.8 (H) 0.0 - 0.7 10*3/uL ABSOLUTE EOSINOPHIL COUNT 0.2 0.0 - 0.7 10*3/uL ABSOLUTE BASOPHIL COUNT 0.1 0.0 - 0.2 10*3/uL PROTIME-INR Result Value Ref Range PT 12.0 11.8 - 14.4 SEC INR 0.88 0.85 - 1.10 LACTATE, BLOOD Result Value Ref Range LACTATE 1.1 0.7 - 2.0 mmol/L SEDIMENTATION RATE, AUTOMATED Result Value Ref Range SEDIMENTATION RATE AUTOMATED 12 0 - 15 MM/HR C REACTIVE PROTEIN Result Value Ref Range C-Reactive Protein 6.5 0 - 10 MG/L Radiographic Imaging CT ABDOMEN/PELVIS WITH CONTRAST Procedures: Procedures Moderate Sedation Procedure: No ED Summary/MDM Right lower quadrant abdominal pain. Differential diagnosis include but are not limited to acute appendicitis, acute diverticulitis, ulcerative colitis. Review of laboratory studies lactic acid is normal. Chemistries are unremarkable. Coags and CBC are unremarkable. Sed rate and C-reactive protein are negative. At this time CT abdomen pelvis with contrast is pending. Patient was given 1 L fluid jenny kimmy normal saline for hydration. 4 mg of Zofran for nausea control. Initially was given 1 mg of Dilaudid for pain control. States this did not control his pain repeat dose was given. At this time we are pending CT results for final disposition. Case was discussed with ER attending Dr. Milton. Pleasesee Dr. Gonzales's notes for completed disposition on this patient. Case was turned over to ER attendings care due to change of shift. At this time patient was alert oriented stable no acute distress inhis pending final disposition. Clinical Impression: 1. RLQ abdominal pain No follow-ups on file. New Prescriptions No medications on file Discontinued Medications No medications on file An After Visit Summary was printed and given to the patient with above information. . . Larry Argueta, CORRECTIONAL SERGEANT[employer]ER[employer] TECHNICIAN 08/23/241911 [facility]04-12-2024 Hospital Discharge instructions Patient Education 02/14/2024 11:11:41 1- [facility] General Discharge Guidelines (07/19/2023) (CUSTOM) [facility] SAME DAY SURGERY DISCHARGE INSTRUCTIONS PLEASE FOLLOW THE INSTRUCTIONS BELOW MARKED WITH AN X: __X_Regular Diet: Start with clear liquids, then soup and crackers. Gradually add other foods unless otherwise instructed by your surgeon __X_Drink extra fluids ACTIVTY: __X_Since you have had anesthetic, it would be advisable not to drive, drink alcohol, or make majordecisions over the next 24 hours. You may require more rest tonight and tomorrow __X_Do not drive vehicle while taking narcotics and as directed by your Surgeon ____Restrict activity as follows: ____Do not have sexual intercourse. Nothing in the vagina-No tampons or Douching __x__No heavy lifting, pushing, or straining ____Elevate operative limb ____Ice as directed __X_Follow all written and verbal instructions given to you by your Doctor ____Other: BATHING/SHOWERING ____Sponge bathe until office visit. ____Sitting in tub of warm water may relieve discomfort ____May tub bathe _x___May shower in 24-48 hours with clean linen unless otherwise instructed by your Doctor DRESSING: __x__Keep operative area clean and dry __x__Check the operative area for signs of bleeding. Apply pressure to the bleeding site if necessary. ____Change drip pad as needed ____Wear scrotal support for comfort WATCH FOR SIGNS OF INFECTION: (Usually appears 36-48 hours after surgery) Increased temperature (101 degrees Fahrenheit or higher) Redness or swelling Increased pain Foul odor or drainage If you have any questions, please call your doctor at the number listed on your follow-up instructions. 02/14/2024 11:11:06 Spinal Cord Stimulator Implantation, Care After Spinal Cord Stimulator Implant, Care After This sheet gives you information about how to care for yourself after your procedure. Your health care provider may also give you more specific instructions. If you have problems or questions, contact your health care provider. What can I expect after the procedure? After the procedure, it is common to have: Mild pain, bruising, and swelling. Headaches. Soreness in the back. Follow these instructions at home: Incision care Follow instructions from your health care provider about how to take care of your incisions. Make sure you: ?Wash your hands with soap and water before you change your bandages (dressings). If soap and waterare not available, use hand telegraph printer mechanic. ?Change your dressings as told by your health care provider. ?Leave stitches (sutures), skin glue, or adhesive strips in place. These skin closures may need to stay in place for 2 weeks or longer. If adhesive strip edges start to loosen and curl up, you may trim the loose edges. Do not remove adhesive strips completely unless your health care provider tells you to do that. Check your incision areas every day for signs of infection. Check for: ?Redness, more swelling, or more pain. ?More fluid or blood. ?Warmth. ?Pus or a bad smell. Activity Ask your health care provider what activities are safe for you during recovery. Do not do any of the following until your health care provider approves: ?Drive. ?Activity that requires a lot of energy, including exercise and sports. ?Lift anything that is heavier than 5 lb (2.3 kg), or the limit that you are told. ?Engage in sexual activity. ?Lift your arms above your head. ?Sleep on your stomach, if your device was placed in your abdomen. ?Bend, twist, stretch, or reach for things. Bathing Do not take baths, swim, or use a hot tub until your health care provider approves. Ask your healthcare provider if you may take showers. You may only be allowed to take sponge baths. Safety Devices that sends out wireless signals may affect your stimulator. If directed by your health careprovider, avoid the following: ?MRI and ultrasound tests. ?Metal detectors. ?Anti-theft devices. ?Generators or power lines. Always carry your device ID card with you. Tell all health care providers who care for you that you have a spinal cord stimulator. This is important information that could affect the medical treatment that you receive. General instructions Work with your health care provider to adjust your settings as needed for pain control. Adjusting settings may take some time. Most stimulators can be controlled with a remote. Take zvmt-fnj-ipompfr and prescription medicines only as told by your health care provider. Do not use any products that contain nicotine or tobacco, such as cigarettes and e-cigarettes. If you need help quitting, ask your health care provider. Drink enough fluid to keep your urine pale yellow. Keep all follow-up visits as told by your health care provider. This is important. Contact a health care provider if you have: A fever. Severe pain, and medicines do not help. More fluid or blood coming from your incisions. Headaches that do not go away. Get help right away if: You have redness, more swelling, or more pain around your incisions. Your incision area feels warm to the touch. You have pus or a bad smell coming from your incision area. You have chest pain or problems breathing. You have sudden and severe back pain. You have weakness or sudden muscle tightening (spasms) in your legs. You are not able to control when you urinate or have a bowel movement (incontinence). Summary After implantation of a spinal cord stimulator, mild pain, muscle soreness, headaches, and bruisingare common. Follow instructions from your health care provider about incision care, bathing, medicines, and activity. Work with your health care provider to adjust your settings as needed for pain control. Adjusting settings may take some time. Most stimulators can be controlled with a remote. This information is not intended to replace advice given to you by your health care provider. Make sure you discuss any questions you have with your health care provider. Document Released: 12/04/2018 Document Revised: 02/11/2020 Document Reviewed: 12/04/2018 [employer] Patient Education 2020 [employer] Follow Up Care 01/20/2024 14:00:48 With:COLTON BREWER, Neurosurgery Address: [address] [place] [phone] When:02/26/2024 13:00:00 [facility] 04-12-2024 Summary of episode note Discharge Instructions Thank you for allowing [facility] to assist you with your healthcare needs. The following is importantdischarge information regarding your hospital visit. Your Care Team ALEXA GRIGGS DO Your Diagnosis Post-op pain What to do next Instructions From Your Doctor Please take ordered antibiotic medication as prescribed. Wear abdominal binder at all times. Please call Dr. Cha's office with any questions or concerns prior to scheduled office visit. Scheduled Follow-Up Appointments Appointment Type When Where Contact InformationNS Post Op 02/26/2024 01:00 PM EDT Neurosurgery [address] [place] [phone] Follow Up Appointments Follow Up with COLTON BREWER, Neurosurgery When 02/26/2024 01:00 PM EDT Where: [address] [place] [phone] The Following Activity and Diet Have Been Ordered for You Discharge Activity - Ordered -- No lifting more than 10 lbs. Wear abdominal binder at all times., 02/14/24 10:57:00 EDT Discharge Diet - Ordered -- No changes were made to your diet during your hospital stay. Please resume your pre hospitalization diet on discharge., 02/14/24 10:57:00 EDT The Following Equipment Has Been Ordered for You Discharge Home Equipment Discharge Wound Care - Ordered -- Keep current dressing over incision for 1 week. Keep incision dry for 2 weeks. may shower, but cover incision with plastic wrap to ensure it remains dry. No tub bath, sauna, hot tub, or swimming for at least 6 weeks., 02/14/24 10:57:00 EDT Allergies NK[facility] Medications Please ask your primary doctor or pharmacist before taking any other medication not listed, including over the counter drugs, herbal medications, vitamins and or supplements as they may interact withyour home medications. What How Much When Why Instructions Last Dose New acetaminophen-hydrocodone (Grafton 325- 5 mg oral tablet) 1-2 tab(s) by mouth Every 6 hours as needed for for pain Post-op pain Duration: 7 Days Take 1 tablet for pain levl 4-6 or take 2 tablets for pain level 7-10. Do not exceed 6 tablets/ day. Pickup at [id number] New amoxicillin-clavulanate (amoxicillin-clavulanate 875 mg-125 mg oral tablet) 1 tab(s) by mouth Every 12 hours Duration: 10 Days Pickup at [id number] Unchanged acetaminophen (Tylenol 325 mg oral capsule) 650 Milligram by mouth Every 4 hours as needed for Pain, scale 1-3 Unchanged tiZANidine (tiZANidine 4 mg oral tablet) 1 tab(s) by mouth Three (3) times a day as needed for Muscle spasm Pharmacy Information [id number]: [address] [place], [place] [id number] [phone] Please take this list to your next doctor s visit. Bring all medications you take, including over the counter medications, herbals and other supplements with you to your doctor s visit. Patients and families are reminded to discard old lists and to update any records with all medication providers or retail pharmacies. Education Materials CHET SAME DAY SURGERY DISCHARGE INSTRUCTIONS PLEASE FOLLOW THE INSTRUCTIONS BELOW MARKED WITH AN X: __X_Regular Diet: Start with clear liquids, then soup and crackers. Gradually add other foods unless otherwise instructed by your surgeon __X_Drink extra fluids ACTIVTY: __X_Since you have had anesthetic, it would be advisable not to drive, drink alcohol, or make majordecisions over the next 24 hours. You may require more rest tonight and tomorrow __X_Do not drive vehicle while taking narcotics and as directed by your Surgeon ____Restrict activity as follows: ____Do not have sexual intercourse. Nothing in the vagina-No tampons or Douching __x__No heavy lifting, pushing, or straining ____Elevate operative limb ____Ice as directed __X_Follow all written and verbal instructions given to you by your Doctor ____Other: BATHING/SHOWERING ____Sponge bathe until office visit. ____Sitting in tub of warm water may relieve discomfort ____May tub bathe _x___May shower in 24-48 hours with clean linen unless otherwise instructed by your Doctor DRESSING: __x__Keep operative area clean and dry __x__Check the operative area for signs of bleeding. Apply pressure to the bleeding site if necessary. ____Change drip pad as needed ____Wear scrotal support for comfort WATCH FOR SIGNS OF INFECTION: (Usually appears 36-48 hours after surgery) Increased temperature (101 degrees Fahrenheit or higher) Redness or swelling Increased pain Foul odor or drainage If you have any questions, please call your doctor at the number listed on your follow-up instructions. Spinal Cord Stimulator Implant, Care After This sheet gives you information about how to care for yourself after your procedure. Your health care provider may also give you more specific instructions. If you have problems or questions, contact your health care provider. What can I expect after the procedure? After the procedure, it is common to have: Mild pain, bruising, and swelling. Headaches. Soreness in the back. Follow these instructions at home: Incision care Follow instructions from your health care provider about how to take care of your incisions. Make sure you: ? Wash your hands with soap and water before you change your bandages (dressings). If soap and water are not available, use hand telegraph printer mechanic. ? Change your dressings as told by your health care provider. ? Leave stitches (sutures), skin glue, or adhesive strips in place. These skin closures may need to stay in place for 2 weeks or longer. If adhesive strip edges start to loosen and curl up, you may trim the loose edges. Do not remove adhesive strips completely unless your health care provider tells you to do that. Check your incision areas every day for signs of infection. Check for: ? Redness, more swelling, or more pain. ? More fluid or blood. ? Warmth. ? Pus or a bad smell. Activity Ask your health care provider what activities are safe for you during recovery. Do not do any of the following until your health care provider approves: ? Drive. ? Activity that requires a lot of energy, including exercise and sports. ? Lift anything that is heavier than 5 lb (2.3 kg), or the limit that you are told. ? Engage in sexual activity. ? Lift your arms above your head. ? Sleep on your stomach, if your device was placed in your abdomen. ? Bend, twist, stretch, or reach for things. Bathing Do not take baths, swim, or use a hot tub until your health care provider approves. Ask your healthcare provider if you may take showers. You may only be allowed to take sponge baths. Safety Devices that sends out wireless signals may affect your stimulator. If directed by your health careprovider, avoid the following: ? MRI and ultrasound tests. ? Metal detectors. ? Anti-theft devices. ? Generators or power lines. Always carry your device ID card with you. Tell all health care providers who care for you that you have a spinal cord stimulator. This is important information that could affect the medical treatment that you receive. General instructions Work with your health care provider to adjust your settings as needed for pain control. Adjusting settings may take some time. Most stimulators can be controlled with a remote. Take ckxn-qlt-ctmapmm and prescription medicines only as told by your health care provider. Do not use any products that contain nicotine or tobacco, such as cigarettes and e-cigarettes. If you need help quitting, ask your health care provider. Drink enough fluid to keep your urine pale yellow. Keep all follow-up visits as told by your health care provider. This is important. Contact a health care provider if you have: A fever. Severe pain, and medicines do not help. More fluid or blood coming from your incisions. Headaches that do not go away. Get help right away if: You have redness, more swelling, or more pain around your incisions. Your incision area feels warm to the touch. You have pus or a bad smell coming from your incision area. You have chest pain or problems breathing. You have sudden and severe back pain. You have weakness or sudden muscle tightening (spasms) in your legs. You are not able to control when you urinate or have a bowel movement (incontinence). Summary After implantation of a spinal cord stimulator, mild pain, muscle soreness, headaches, and bruisingare common. Follow instructions from your health care provider about incision care, bathing, medicines, and activity. Work with your health care provider to adjust your settings as needed for pain control. Adjusting settings may take some time. Most stimulators can be controlled with a remote. This information is not intended to replace advice given to you by your health care provider. Make sure you discuss any questions you have with your health care provider. Document Released: 12/04/2018 Document Revised: 02/11/2020 Document Reviewed: 12/04/2018 [employer] Patient Education 2020 [employer]. Additional Information VACCINATE! IT SAVES LIVES! Members of the community who have not yet received the COVID-19 vaccine and would like to receive it can visit one of [facility] vaccine clinics. There are many vaccine clinic locations within the [facility]. For locations and available times, please visit [email or web address].[place].gov/. It is important to note that some COVID mobile vaccine clinics are held outdoors and may be canceled in rainy or stormy conditions. To learn more about pediatric vaccinations (ages 5-11), we invite you to visit the [facility] webpage. [email or web address].[email or web address]/pages/[email or web address]-[email or web address]-Isgud-[email or web address] stions.htmlTo learn more about the COVID-19 vaccine, we invite you to visit the CDC website for a list of frequently asked questions.https://www.cdc.gov/coronavirus/2019-ncov/vaccines/faq.html [facility] Patient Portal Access Instructions: Stay connected with your healthcare team and access your personal medical information anytime with the [facility] Patient Portal. Please follow the directions below to create your [facility] account: 1.Access the email account you provided upon registration to the hospital/physician office.2.Look for an invitation email from [facility].3.Open the email and access the invitation link: AcceptInvitation to [facility].4.Fill in the required trujillo to create your account. To access your account, visit [email or web address]. Click the blue button labeled Access Patient Portal and then log in with the username and password that you created in the steps above. You will be able to view your test results, lab results, a summary of your visits, upcoming appointments and more. There is also a convenient messaging option where you can send secure messages to your p milenavider. In addition, you will have the ability to download any documents or summaries to your computer and/or send the information securely to a physician. Remember that your healthcare information is confidential, so carefully consider who you will allowto register on the [facility] for access to your information. You can also access the [facility] on the [facility] kirk. Simply click on Patient Portal and then log into your account. If you would like to receive a full copy of your medical records, please contact the [facility] Medical Records Department by calling [phone], Saturday through Saturday between 8 a.m. and 4:30 p.m. HOW TO SAFELY DISPOSE OF PRESCRIPTION MEDICATIONS Please use one of the following methods to safely dispose of your unused medications. 1.Use a drug disposal kit: the drug disposal pouch allows you to safely discard your old and unuseddrugs. Ask your nurse to give you one when you are discharged.2.Visit a local take-back location: Many local pharmacies and police departments have programs that collect old and unwanted prescriptiondrugs. Call your local pharmacy or go to http://[employer].Shopatron/4O6Ce1n to find one close to you.3.Make use of household items: Use cat litter or old coffee grounds to dispose medications if other options arenot available. Mix your drugs with these household products, seal them in an airtight container andthrow it into the garbage. Call [facility]: [phone] to be sure your drugs can be disposed of in this way. Some medicines may require a different approach.4.Never flush your medications down the toilet. IF YOU HAVE BEEN PRESCRIBED AN OPIOID FOR PAIN If you have been prescribed an opioid (such as hydrocodone, oxycodone or morphine), it is critical to understand the possible side effects and risks of opioid pain medications. Even when taken as directed, opioids can have several side effects including: Tolerance, meaning you might need to take more of a medication for the same pain relief. Nausea, vomiting and/or constipation. Sleepiness, dizziness, dry mouth, confusion, depression or itching. Physical dependence, meaning you have withdrawal symptoms when a medication is stopped, can develop within a few days. KNOW YOUR RESPONSIBILITIES It is important to know exactly how much and how often to take the opioid pain medications you are prescribed. Never take opioids in higher amounts or more often than prescribed. Do not combine opioids with alcohol or other drugs that cause drowsiness, such as benzodiazepines, also known as benzos, including diazepam and alprazolam, muscle relaxants or sleep aids. Never sell or share prescription opioids. This is illegal. Store opioids in a secure place and out of reach of others (including children, family, friends and visitors). The last page of this document has been signed and retained as a CHART COPY. Signatures Patient Education Materials 1- SDS General Discharge Guidelines (07/19/2023) (CUSTOM) Spinal Cord Stimulator Implantation, Care After Medication Leaflets My discharge plan and instructions have been reviewed and explained to me and I,AJIT ZHU understand my current condition and have read and understand these discharge instructions. I have receiveda written copy of the plan/instructions. If I have questions, I am aware that I should contact my do ctor. 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 Patient location: PACU. Assessment Postanesthesia assessment Vitals: Vital signs from flowsheet : Vital Signs 02/14/2024 10:03 EDT Heart Rate Monitored 85 bpm Respiratory Rate 20 br/min Systolic Blood Pressure Non-Invasive 117 mmHg Diastolic Blood Pressure Non-Invasive 73 mmHg Mean Arterial Pressure (NBP) 86 mmHg 02/14/2024 9:57 EDT Heart Rate Monitored 80 bpm Respiratory Rate 20 br/min 02/14/2024 9:48 EDT Temperature Temporal Artery 36.2 DegC Heart Rate Monitored 84 bpm Respiratory Rate 20 br/min Systolic Blood Pressure Non-Invasive 119 mmHg Diastolic Blood Pressure Non-Invasive 80 mmHg Mean Arterial Pressure (NBP) 92 mmHg 02/14/2024 9:45 EDT Respiratory Rate - Anes 33 br/min br/min 02/14/2024 9:41 EDT Systolic Blood Pressure Non-Invasive 144 mmHg mmHg Diastolic Blood Pressure Non-Invasive 103 mmHg mmHg 02/14/2024 9:40 EDT Heart Rate Monitored 80 bpm bpm Respiratory Rate - Anes 22 br/min br/min 02/14/2024 9:38 EDT Systolic Blood Pressure Non-Invasive 132 mmHg mmHg Diastolic Blood Pressure Non-Invasive 98 mmHg mmHg 02/14/2024 9:36 EDT Systolic Blood Pressure Non-Invasive 95 mmHg mmHg Diastolic Blood Pressure Non-Invasive 55 mmHg mmHg 02/14/2024 9:35 EDT Heart Rate Monitored 69 bpm bpm Respiratory Rate - Anes 11 br/min br/min 02/14/2024 9:32 EDT Systolic Blood Pressure Non-Invasive 105 mmHg mmHg Diastolic Blood Pressure Non-Invasive 68 mmHg mmHg 02/14/2024 9:30 EDT Heart Rate Monitored 65 bpm bpm Respiratory Rate - Anes 10 br/min br/min 02/14/2024 9:29 EDT Systolic Blood Pressure Non-Invasive 99 mmHg mmHg Diastolic Blood Pressure Non-Invasive 65 mmHg mmHg 02/14/2024 9:26 EDT Systolic Blood Pressure Non-Invasive 101 mmHg mmHg Diastolic Blood Pressure Non-Invasive 65 mmHg mmHg 02/14/2024 9:25 EDT Temperature (Route Not Specified) 35.86 DegC DegC Heart Rate Monitored 66 bpm bpm Respiratory Rate - Anes 10 br/min br/min 02/14/2024 9:23 EDT Systolic Blood Pressure Non-Invasive 102 mmHg mmHg Diastolic Blood Pressure Non-Invasive 65 mmHg mmHg 02/14/2024 9:20 EDT Temperature (Route Not Specified) 35.84 DegC DegC Heart Rate Monitored 68 bpm bpm Respiratory Rate - Anes 10 br/min br/min Systolic Blood Pressure Non-Invasive 102 mmHg mmHg Diastolic Blood Pressure Non-Invasive 64 mmHg mmHg 02/14/2024 9:17 EDT Systolic Blood Pressure Non-Invasive 100 mmHg mmHg Diastolic Blood Pressure Non-Invasive 59 mmHg mmHg 02/14/2024 9:15 EDT Temperature (Route Not Specified) 35.82 DegC DegC Heart Rate Monitored 71 bpm bpm Respiratory Rate - Anes 14 br/min br/min 02/14/2024 9:14 EDT Systolic Blood Pressure Non-Invasive 93 mmHg mmHg Diastolic Blood Pressure Non-Invasive 66 mmHg mmHg 02/14/2024 9:11 EDT Systolic Blood Pressure Non-Invasive 101 mmHg mmHg Diastolic Blood Pressure Non-Invasive 62 mmHg mmHg 02/14/2024 9:10 EDT Temperature (Route Not Specified) 35.81 DegC DegC Heart Rate Monitored 75 bpm bpm Respiratory Rate - Anes 14 br/min br/min 02/14/2024 9:08 EDT Systolic Blood Pressure Non-Invasive 100 mmHg mmHg Diastolic Blood Pressure Non-Invasive 63 mmHg mmHg 02/14/2024 9:05 EDT Temperature (Route Not Specified) 35.83 DegC DegC Heart Rate Monitored 88 bpm bpm Respiratory Rate - Anes 14 br/min br/min Systolic Blood Pressure Non-Invasive 109 mmHg mmHg Diastolic Blood Pressure Non-Invasive 70 mmHg mmHg 02/14/2024 9:02 EDT Systolic Blood Pressure Non-Invasive 100 mmHg mmHg Diastolic Blood Pressure Non-Invasive 64 mmHg mmHg 02/14/2024 9:00 EDT Temperature (Route Not Specified) 35.83 DegC DegC Heart Rate Monitored 76 bpm bpm Respiratory Rate - Anes 14 br/min br/min 02/14/2024 8:59 EDT Systolic Blood Pressure Non-Invasive 102 mmHg mmHg Diastolic Blood Pressure Non-Invasive 68 mmHg mmHg 02/14/2024 8:56 EDT Systolic Blood Pressure Non-Invasive 102 mmHg mmHg Diastolic Blood Pressure Non-Invasive 71 mmHg mmHg 02/14/2024 8:55 EDT Temperature (Route Not Specified) 35.83 DegC DegC Heart Rate Monitored 82 bpm bpm Respiratory Rate - Anes 12 br/min br/min 02/14/2024 8:53 EDT Systolic Blood Pressure Non-Invasive 112 mmHg mmHg Diastolic Blood Pressure Non-Invasive 75 mmHg mmHg 02/14/2024 8:50 EDT Temperature (Route Not Specified) 35.87 DegC DegC Heart Rate Monitored 80 bpm bpm Respiratory Rate - Anes 14 br/min br/min Systolic Blood Pressure Non-Invasive 109 mmHg mmHg Diastolic Blood Pressure Non-Invasive 70 mmHg mmHg 02/14/2024 8:47 EDT Systolic Blood Pressure Non-Invasive 113 mmHg mmHg Diastolic Blood Pressure Non-Invasive 72 mmHg mmHg 02/14/2024 8:45 EDT Temperature (Route Not Specified) 35.92 DegC DegC Heart Rate Monitored 86 bpm bpm Respiratory Rate - Anes 14 br/min br/min 02/14/2024 8:44 EDT Systolic Blood Pressure Non-Invasive 110 mmHg mmHg Diastolic Blood Pressure Non-Invasive 75 mmHg mmHg 02/14/2024 8:41 EDT Systolic Blood Pressure Non-Invasive 114 mmHg mmHg Diastolic Blood Pressure Non-Invasive 73 mmHg mmHg 02/14/2024 8:40 EDT Heart Rate Monitored 93 bpm bpm Respiratory Rate - Anes 10 br/min br/min 02/14/2024 8:38 EDT Systolic Blood Pressure Non-Invasive 125 mmHg mmHg Diastolic Blood Pressure Non-Invasive 79 mmHg mmHg 02/14/2024 8:36 EDT Systolic Blood Pressure Non-Invasive 141 mmHg mmHg Diastolic Blood Pressure Non-Invasive 80 mmHg mmHg 02/14/2024 8:35 EDT Heart Rate Monitored 78 bpm bpm Respiratory Rate - Anes 10 br/min br/min 02/14/2024 8:32 EDT Systolic Blood Pressure Non-Invasive 149 mmHg mmHg Diastolic Blood Pressure Non-Invasive 99 mmHg mmHg 02/14/2024 8:30 EDT Heart Rate Monitored 64 bpm bpm Respiratory Rate - Anes 10 br/min br/min (Modified) Systolic Blood Pressure Non-Invasive 134 mmHg mmHg Diastolic Blood Pressure Non-Invasive 86 mmHg mmHg 02/14/2024 7:02 EDT Temperature Temporal Artery 36 DegC Peripheral Pulse Rate 65 bpm Respiratory Rate 18 br/min Systolic Blood Pressure Non-Invasive 126 mmHg Diastolic Blood Pressure Non-Invasive 73 mmHg . Mental status: at preoperative baseline. Respiratory function: respirations are non-labored, stable. Respiratory support: none. CV function: stable. Cardiovascular support: none. Pain: satisfactory. Nausea status: satisfactory. Postoperative hydration status: within normal limits. Notes: Patient is sufficiently recovered from anesthesia to participate in the evaluation. No follow-up care needed. No complications post-anesthesia.. Digitally Signed by SERAFIN DE OLIVEIRA MD on 02/14/2024 10:16 AM [id number] Note ORIGINAL EXAMINATION: SPOT FLUOROSCOPIC IMAGES4/10/2024 9:28 am Intraoperative fluoroscopy and image intensifier views of the thoracolumbar spine COMPARISON: None HISTORY: ORDERING SYSTEM PROVIDED HISTORY: Reason for Exam: PAIN, , intraoperative imaging FINDINGS/IMPRESSION: Fluoroscopic time: 48.7 seconds Total dose (Reference Air Kerma): 58.921 MGy Number of fluoroscopic images: 7 Detail is limited. Please see intraoperative notes for additional details of the procedure. Interpreted by: Kike Chen MD Preliminary Report By: Kike Chen MD Electronically signed By Kike Chen MD Dictated Date: 02/14/2024 9:52:25 AM Prelim Date: 02/14/2024 9:53:11 AM Sign Date: 02/14/2024 9:53:11 AM Ordering Provider: [facility]04-12-2024 Anesthesiology Consult note Patient: AJIT ZHU Age: 38 years Sex: Male : 1985 Associated Diagnoses: None Author: SERAFIN DE OLIVEIRA MD Preoperative Information Time of last food or liquid consumption: 02/13/2024 18:00:00 Anesthesia history Patient's history: negative. Family's history: negative. Health Status Allergies: Allergic Reactions (All) NKA, Allergies (1) ActiveReaction NKANone Documented Current medications: (Selected) Inpatient Medications Ordered Kefzol: 2 gram(s), 20 mL, 240 mL/hr, IV Push (INT), PREOP pharm NS 1,000 mL: 20 mL/hr, Intravenous ceFAZolin: 1 gram(s), 10 mL, 0 mL/hr, Topical (INT), PREOP pharm Prescriptions Prescribed tiZANidine 4 mg oral tablet: 4 mg, 1 tab(s), Oral, TID, PRN: Muscle spasm, 90 tab(s), 0 Refill(s) Documented Medications Documented Tylenol 325 mg oral capsule: 650 mg, Oral, q4h, PRN: Pain, scale 1-3, 0 Refill(s), Medications (3) Active Scheduled: (2) ceFAZolin 1 gram(s) 10 mL, Topical (INT), PREOP pharm ceFAZolin syringe 2 gram(s) 20 mL, IV Push (INT), PREOP pharm Continuous: (1) NS (0.9% nacl) 1,000 mL 1,000 mL, Intravenous, 20 mL/hr PRN: (0) Problem list: Medical Cervical disc disease / SNOMED CT 4211469446 / Confirmed Bipolar disorder / SNOMED CT 52591438 / Confirmed GERD (gastroesophageal reflux disease) / SNOMED CT 299999856 / Confirmed Family hx of colon cancer / SNOMED CT 194017597 / Confirmed Back pain / SNOMED CT 406527400 / Confirmed Lumbar spondylosis / SNOMED CT 720887668 / Confirmed Degenerative disc disease, lumbar / SNOMED CT 04574942 / Confirmed 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 prescription opiate use / SNOMED CT 719674501 / Confirmed Chronic low back pain / SNOMED CT 367140913 / Confirmed Bilateral lumbar radiculopathy / SNOMED CT 299211017 / Confirmed Numbness and tingling of right leg / SNOMED CT 2948912638 / Confirmed Low back pain radiating to right leg / SNOMED CT 318398082 / Confirmed, Active Problems (21) Anxiety Back pain Bilateral lumbar radiculopathy Bipolar disorder BMI 33.0-33.9,adult Cervical disc disease Chronic low back pain Chronic neck pain Contact lenses COVID Degenerative disc disease, lumbar Depression Family hx of colon cancer GERD (gastroesophageal reflux disease) Glasses retirement prescription opiate use Low back pain radiating to right leg Lumbar disc herniation Lumbar spondylosis Numbness and tingling of right leg Tobacco use Histories Past Medical History: Resolved Lipoma of abdominal wall ([id number]): Resolved. Family History: Cancer of colon Father () Brother () HTN - Hypertension Mother Procedure history: Epidural steroid injection ([id number]) on 10/07/2023 at 38 Years. Laminectomy and discectomy ([id number]) on 09/10/2023 at 38 Years. Comments: 09/13/2023 10:46 Bessy Barahona LPN L5-S1 laminecomty,discectomy, foraminotomy Excision of lipoma ([id number]) in 2020 at 35 Years. Comments: 08/27/2023 10:00 Danny Oden RN abdominal wall Shoulder- metal plate ([id number]) in 2018 at 32 Years. Comments: 08/27/2023 9:55 Danny Oden RN left left Wrist- bone fragments removed ([id number]) in 2009 at 25 Years. Comments: 08/27/2023 9:56 Danny Oden RN left right ACL - Anterior cruciate ligament rupture ([id number]) in 2008 at 24 Years. Comments: 08/27/2023 9:56 Danny Oden RN right knee Loss of teeth due to extraction ([id number]). Colonoscopy ([id number]). 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 Physical Examination Vital Signs 02/14/2024 7:02 EDT Temperature Temporal Artery 36 DegC Peripheral Pulse Rate 65 bpm Respiratory Rate 18 br/min Systolic Blood Pressure Non-Invasive 126 mmHg Diastolic Blood Pressure Non-Invasive 73 mmHg Vital Signs(last 24 hrs) Last Charted VMH963 mmHg (FEB 13 07:02) DBP73 mmHg (FEB 13 07:02) Measurements from flowsheet : Measurements 02/14/2024 7:02 EDT Height 172.7 cm Height in inches 68 inch(es) Admission Weight 97 kg Weight Lbs 213.4 lb Weight Method Actual Current Weight 97 kg [place] Body Weight 68.38 kg Admission Body Mass Index 32.52 m2 Pain assessment: Pain Assessment 02/14/2024 7:02 EDT Primary Pain Location Lower back Primary Pain Laterality Bilateral Primary Pain Intensity 7 Pain Scale Type 0-10 Pain scale . General: Alert and oriented. Airway: Normal temporomandibular joint mobility, Nares patent, Trachea midline. Mallampati classification: II (soft palate, fauces, uvula visible). Head: Normocephalic, Atraumatic. Dentition Evaluation: Intact, Own teeth. Respiratory: Lungs are clear to auscultation. Cardiovascular: Normal rate, Regular rhythm. Neurologic: Alert, Oriented. Review / Management Results review: Labs (Last four charted values) WBC 7.3(FEB 13) Hgb 14.9(FEB 13) Hct 43.4(FEB 13) Plt 193(FEB 13) Na 141(FEB 13) K 4.0(FEB 13) CO2 23(FEB 13) Cl H 111(FEB 13) Cr 0.81(FEB 13) BUN 10.0(FEB 13) Glucose H 114(FEB 13) Ca 9.4(FEB 13) , Lab results 02/14/2024 7:05 EDT SN - Preop - CTm Pt Ready for OR/Proced 02/14/2024 7:05 02/14/2024 7:04 EDT lidocaine Not Done: Other (Not Done) Sodium Chloride 0.9% Begin Bag 1,000 mL mL 02/14/2024 7:03 EDT Forearm Right 02/14/2024 20 gauge Peripheral IV Activity: Insert new site Peripheral IV Site Condition: No complications Peripheral IV Equipment: Manual Peripheral IV Number of Attempts: 1 02/14/2024 7:02 EDT Height 172.7 cm Height in inches 68 inch(es) Admission Weight 97 kg Weight Lbs 213.4 lb Weight Method Actual Current Weight 97 kg [place] Body Weight 68.38 kg Admission Body Mass Index 32.52 m2 Temperature Temporal Artery 36 DegC Peripheral Pulse Rate 65 bpm Respiratory Rate 18 br/min Systolic Blood Pressure Non-Invasive 126 mmHg Diastolic Blood Pressure Non-Invasive 73 mmHg Primary Pain Location Lower back Primary Pain Laterality Bilateral Primary Pain Intensity 7 Pain Scale Type 0-10 Pain scale Heart Rhythm Regular Respirations Unlabored Respiratory Pattern Regular All Lobes Breath Sounds Clear Oxygen Therapy Room air Oxygen Saturation 96 % Abdomen Description Non-distended Bowel Sounds All Quadrants Present Skin Temperature Warm Skin Description Normal for ethnicity Skin Integrity Intact Neurological Symptoms Patient denies Extremity Movement Equal Characteristics of Speech Clear Level of Consciousness Alert ARLIN Yes Strength All Extremities Strong Tone All Extremities Normal Sensation All Extremities Intact Affect/Behavior Appropriate, Calm, Cooperative Orientation Oriented x 4 Standard Safety ID band on, Call device within reach, Bed in low position, Wheels locked, Upper/Half-Length side-rails up, Phone within reach, personal items within reach, Assistive devices within reach Demonstrates Correct Call Light Use Yes 02/14/2024 7:01 EDT Designated Person #1 We May Share KEVIN Jasmine [phone] Designated Person #1 Relationship Significant other Privacy Restrictions Requested None Status N/A Sensory Deficits None Sleep Apnea Snore No Sleep Apnea Tired No Sleep Apnea Obstruction No Sleep Apnea Pressure No Sleep Apnea BMI No Sleep Apnea Age No Sleep Apnea Neck No Sleep Apnea Gender Yes Sleep Apnea Score 1 Diagnosed With Sleep Apnea No Advanced Directives No - refuses information Infectious Disease Symptoms Patient states no symptoms Infectious Disease Recent Exposure No Alcohol and Drug Use No Employee of Institutional Living No Health Care Employee No History of Exposure to TB No History of Positive Chest X-Ray for TB No History of Positive TB Skin Test No Homeless No Known Immunosuppression No Recent Immigrant No Resident of Institutional Living No Bloody Sputum No Fatigue No Fever No Loss of Appetite No Night Sweats No Persistent Cough > 3 Weeks No Weight Loss No Surgery Scheduled On Date/Time 02/14/2024 8:30 Patient Aware Date/Time Of Surgery Yes Arrival Time the Day of Surgery 02/14/2024 6:00 Patient Aware of Arrival Time Yes Previous Surgery At This Facility Yes Pre-Op Patient Education NPO after midnight, No smoking after midnight, No makeup, No jewelry, Responsible Constitution Party, Aware of surgery location, Pre-op education done, 2 bottles CHG wash with instructions given, No ordered medications, Instructed to bring home medications, VTE prevention handout given, MRSA protocol education provided SN - Preprocedure Comments Spoke with patient, Verbalizes/Nonverbally indicates understanding Barriers to Learning None evident Teaching Method Explanation Preferred Spoken Language Slovenian Preferred Written Language Slovenian Teaching Evaluation Verbalizes/Nonverbally indicates understanding Safety Brochure Information Reviewed Yes Chet Bustamante Video Viewed No Information Given by Patient Patient's Current Physicians Patient's Current Physicians Discharge To, Anticipated Home independently Prev Test Positive/Diagnosis w/COVID-19 Yes Previous COVID-19 Positive Date 2022 Current Quarantine/Isolated any Illness No Any Contact with Sick Animals/Birds No Traveled Anywhere in Last 30 Days No Lost Weight Unintentionally Recently No Eat Poorly Due to Decreased Appetite No Total MST Score 0 N/A Personal Devices, Patient Valuables Contact lenses, Glasses Anesthesia/Transfusions Prior anesthesia Admission Note-Nursing Same Day Patient History 02/14/2024 6:54 EDT Individuals Taught Patient Learning Readiness Willing to learn Barriers to Learning None evident Teaching Method Explanation Preferred Spoken Language Slovenian Preferred Written Language Slovenian Teaching Evaluation Verbalizes/Nonverbally indicates understanding General Infection Prevention Strategies Hand hygiene, Remind visitor/caregiver to wash hands, Remind patient/visitor to mask when w/Healthcare Provider, Respiratory hygiene - Cover Your Cough Surgical Site Infection Prevention SSI FAQ provided Infection Prevention Teaching Evaluation Verbalizes/Nonverbally indicates understanding Pain Medication Education Pain scale Pain Teaching Evaluation Verbalizes/Nonverbally indicates understanding Pre Procedure/Surgery Education Appropriate expectations, Bring glasses, hearing aids, contact lenscase, Date/Time of procedure/surgery, Hospital gown requirement worn to OR, Leave valuables, jewelry, wedding ring at home, Meds to take or hold, NPO Procedure/Surgical Teaching Evaluation Verbalizes/Nonverbally indicates understanding Safety Measures Education Fall prevention Safety Teaching Evaluation Verbalizes/Nonverbally indicates understanding 02/14/2024 6:52 EDT SN - Preop - CTm Pt in SDS Room 02/14/2024 6:52 02/14/2024 6:52 EDT Urinary Elimination Voiding, no difficulties IV Present Present Violence Risk Confused No Violence Risk Irritable No Violence Risk Boisterous No Violence Risk Verbal Threats No Violence Risk Physical Threats No Violence Risk Attacking Objects No Violence Risk Predictor Score 0 Violence Risk Intervention None Allergies No Consent Form Signed Yes Patient Dressed In Hospital gown CHG Preoperative Wash/Wipe Night before procedure, Day of procedure, Site specific wipe Non-CHG Preoperative Shampoo Not applicable Preop Nasal Swab Povidone-Iodine CHG Skin Prep Completed for Eligible Surgery History & Physical Update On Chart Yes History & Physical On Chart Yes Obstructive Sleep Apnea Assess Completed Yes MRSA/MSSA Protocol Yes Belongings At Bedside Earrings, Glasses, Necklace, Pants, Shirt, Shoes, Undergarments NPO Status Maintained Allergy Band on and Verified No Patient ID Band on and Verified Yes Implants Verified Yes Pacemaker/AICD Verified Yes Site Verified by Patient/Family Yes Last Fluid Intake 02/13/2024 23:30 Last Food Intake 02/13/2024 21:00 Last Void 02/14/2024 6:53 02/14/2024 6:05 EDT WBC 7.3 10^3/mcL RBC 4.52 10^6/mcL Hgb 14.9 G/dL Hct 43.4 % MCV 96.2 fL MCH 33.1 pg HI MCHC 34.4 G/dL RDW 13.4 % Platelet 193 10^3/mcL MPV 10.2 fL Neutrophil % 55.2 % Lymphocyte % 32.5 % Monocyte % 8.7 % Eosinophil % 3.0 % Basophil % 0.6 % Neutrophil, Absolute 4.1 10^3/mcL Lymphocyte, Absolute 2.4 10^3/mcL Monocyte, Absolute 0.6 10^3/mcL Eosinophil, Absolute 0.2 10^3/mcL Basophil, Absolute 0.0 10^3/mcL Glucose Level 114 mg/dL HI Sodium Level 141 mEq/L Potassium Level 4.0 mEq/L Chloride 111 mEq/L HI CO2 23 mEq/L Electrolyte Balance 7.0 mEq/L BUN 10.0 mg/dL Creatinine Lvl (s) 0.81 mg/dL BUN/Creatinine Ratio 12.3 ratio Calcium Lvl 9.4 mg/dL GFR Non- >60 ml/min/1.73sqm NA GFR >60 ml/min/1.73sqm NA Slide Review Man Indicated 02/13/2024 13:26 EDT Surgery Scheduled On Date/Time 02/14/2024 8:30 (Modified) Arrival Time the Day of Surgery 02/14/2024 6:00 (Modified) Admission Note-Nursing Same Day Patient History (Modified) . Assessment and Plan [place] [employer] Anesthesiologists (ASA) physical status classification: Class II. Anesthetic Preoperative Plan Anesthetic technique: General. Induction: intravenously. Maintenance airway: Oral endotracheal tube. Postoperative pain management: Per surgeon. Risks discussed: nausea, vomiting, headache, sore throat, dental injury, hypotension, allergic reaction, serious complications. Informed consent: signed by patient. Notes: smoker, bipolar, GERD is controlled. Digitally Signed by SERAFIN DE OLIVEIRA MD on 02/14/2024 08:05 AM [id number] Discharge summary Date of Service January 16, 2024 Discharge Diagnosis Spinal cord stimulator status (Z96.89 - ICD-10-CM) Hospital Course Insertion of spinal cord stimulator Allergies NKA Procedures Percutaneous insertion of tibdit MR-compatible neurostimulator Consults No qualifying data available. Objective Vitals and Measurements T: 36.0 C (Tympanic) TMIN: 36.0 C (Tympanic) TMAX: 36.5 C (Temporal Artery) HR: 74 RR: 18 BP: 113/6 SpO2: 95% HT: 172.7 cm WT: 96.3 kg Weight Dosing Weight: 96.3 kg (01/16/24) Pending Labs and Studies None Code Status No qualifying data available. Admission Date January 16, 2024 Discharge Date January 16, 2024 Patient Instructions Complete your entire 7 day course of antibiotics. Wear abdominal binder at all times until seen in office for follow up appointment. No aspirin, aspirin products, NSAIDS (no motrin, advil, aleve, or ibuprofen). Medications New Prescription acetaminophen-hydrocodone (G[place] 325- 5 mg oral tablet)1 tab(s) by mouth every 6 hours as needed for pain for 7 Days. Refills: 0. amoxicillin-clavulanate (amoxicillin-clavulanate 875 mg-125 mg oral tablet)1 tab(s) by mouth every 12 hours for 7 Days. Refills: 0. Unchanged acetaminophen (Tylenol 325 mg oral capsule)650 Milligram by mouth every 4 hours as needed Pain, scale 1-3. tiZANidine (tiZANidine 4 mg oral tablet)1 tab(s) by mouth three (3) times a day as needed Muscle spasm. Refills: 0. Discontinued mupirocin topical (mupirocin 2% topical ointment)1 application Topical two (2) times a day. Bilateral intranasal application twice daily x 5 days pre-surgery.. Refills: 0. Follow Up Follow Up with COLTON BREWER, Neurosurgery When 01/20/2024 11:45 AM EDT Where: [address] [place] [address]- [phone] Follow Up Appointments No qualifying data available. Follow Up Labs/Studies Discharge Labs No Follow-up Labs Discharge Studies No Follow-up Studies Discharge Diet Discharge Diet - Ordered -- No changes were made to your diet during your hospital stay. Please resume your pre hospitalization diet on discharge., 01/16/24 12:13:00 EDT Discharge Activity Discharge Activity - Ordered -- No lifting more than 10 lbs. Wear abdominal binder at all times., 01/16/24 12:13:00 EDT Readmission Risk/Palliative Score No qualifying data available. Digitally Signed by MIGUEL CHA MD on 01/16/2024 04:32 PM [id number] Hospital Discharge instructions Patient Education 01/16/2024 12:20:08 1- [facility] General Discharge Guidelines (07/19/2023) (Custom) SUPERIOR SAME DAY SURGERY DISCHARGE INSTRUCTIONS PLEASE FOLLOW THE INSTRUCTIONS BELOW MARKED WITH AN X: __X_Regular Diet: Start with clear liquids, then soup and crackers. Gradually add other foods unless otherwise instructed by your surgeon __X_Drink extra fluids ACTIVTY: __X_Since you have had anesthetic, it would be advisable not to drive, drink alcohol, or make majordecisions over the next 24 hours. You may require more rest tonight and tomorrow __X_Do not drive vehicle while taking narcotics and as directed by your Surgeon ____Restrict activity as follows: ____Do not have sexual intercourse. Nothing in the vagina-No tampons or Douching ____No heavy lifting, pushing, or straining ____Elevate operative limb ____Ice as directed __X_Follow all written and verbal instructions given to you by your Doctor ____Other: BATHING/SHOWERING _x___Sponge bathe until office visit. ____Sitting in tub of warm water may relieve discomfort ____May tub bathe ____May shower in 24-48 hours with clean linen unless otherwise instructed by your Doctor DRESSING: __x__Keep operative area clean and dry _x___Check the operative area for signs of bleeding. Apply pressure to the bleeding site if necessary. ____Change drip pad as needed ____Wear scrotal support for comfort WATCH FOR SIGNS OF INFECTION: (Usually appears 36-48 hours after surgery) Increased temperature (101 degrees Fahrenheit or higher) Redness or swelling Increased pain Foul odor or drainage If you have any questions, please call your doctor at the number listed on your follow-up instructions. Follow Up Care 01/10/2024 11:21:48 With:COLTON BREWER, Neurosurgery Address: [address] [place] [address] [address] [place] [address] [phone] When:01/20/2024 11:45:00 [facility] 03-14-2024 Summary of episode note Discharge Instructions Thank you for allowing [facility] to assist you with your healthcare needs. The following is importantdischarge information regarding your hospital visit. Your Care Team ALEXA GRIGGS DO Your Diagnosis Spinal cord stimulator status What to do next Instructions From Your Doctor Complete your entire 7 day course of antibiotics. Wear abdominal binder at all times until seen in office for follow up appointment. No aspirin, aspirin products, NSAIDS (no motrin, advil, aleve, or ibuprofen). Scheduled Follow-Up Appointments Appointment Type When Where Contact InformationNS Post Op 01/20/2024 11:45 AM EDT Neurosurgery [address] [place] [phone] Follow Up Appointments Follow Up with COLTON BREWER, Neurosurgery When 01/20/2024 11:45 AM EDT Where: [facility] [address] [place] [address]- [phone] The Following Activity and Diet Have Been Ordered for You Discharge Activity - Ordered -- No lifting more than 10 lbs. Wear abdominal binder at all times., 01/16/24 12:13:00 EDT Discharge Diet - Ordered -- No changes were made to your diet during your hospital stay. Please resume your pre hospitalization diet on discharge., 01/16/24 12:13:00 EDT The Following Equipment Has Been Ordered for You Discharge Home Equipment Discharge Wound Care - Ordered -- Keep current dressing over incision for 1 week. Keep incision dry for 2 weeks. may shower, but cover incision with plastic wrap to ensure it remains dry. No tub bath, sauna, hot tub, or swimming for at least 6 weeks., 01/16/24 12:13:00 EDT The Following Treatments Have Been Ordered for You Discharge Labs No qualifying data available. Discharge Radiology No qualifying data available. Other Therapies No qualifying data available. Post Acute Orders No qualifying data available. Someone Will Contact You Regarding These Home Health Referrals No home referrals have been ordered for you. No one will call you. Allergies NKA Medications Please ask your primary doctor or pharmacist before taking any other medication not listed, including over the counter drugs, herbal medications, vitamins and or supplements as they may interact withyour home medications. What How Much When Why Instructions Last Dose New acetaminophen-hydrocodone (Grafton 325- 5 mg oral tablet) 1 tab(s) by mouth Every 6 hours as needed for for pain Spinal cord stimulator status Duration: 7 Days Pickup at [id number] New amoxicillin-clavulanate (amoxicillin-clavulanate 875 mg-125 mg oral tablet) 1 tab(s) by mouth Every 12 hours Duration: 7 Days Pickup at [id number] Unchanged acetaminophen (Tylenol 325 mg oral capsule) 650 Milligram by mouth Every 4 hours as needed for Pain, scale 1-3 Unchanged tiZANidine (tiZANidine 4 mg oral tablet) 1 tab(s) by mouth Three (3) times a day as needed for Muscle spasm Pharmacy Information [id number]: [address] [place], [place] [phone] What How Much When Comments Stop Taking mupirocin topical (mupirocin 2% topical ointment) 1 application Topical Two (2) times a day Bilateral intranasal application twice daily x 5 days pre-surgery. Please take this list to your next doctor s visit. Bring all medications you take, including over the counter medications, herbals and other supplements with you to your doctor s visit. Patients and families are reminded to discard old lists and to update any records with all medication providers or retail pharmacies. Education Materials CHET SAME DAY SURGERY DISCHARGE INSTRUCTIONS PLEASE FOLLOW THE INSTRUCTIONS BELOW MARKED WITH AN X: __X_Regular Diet: Start with clear liquids, then soup and crackers. Gradually add other foods unless otherwise instructed by your surgeon __X_Drink extra fluids ACTIVTY: __X_Since you have had anesthetic, it would be advisable not to drive, drink alcohol, or make majordecisions over the next 24 hours. You may require more rest tonight and tomorrow __X_Do not drive vehicle while taking narcotics and as directed by your Surgeon ____Restrict activity as follows: ____Do not have sexual intercourse. Nothing in the vagina-No tampons or Douching ____No heavy lifting, pushing, or straining ____Elevate operative limb ____Ice as directed __X_Follow all written and verbal instructions given to you by your Doctor ____Other: BATHING/SHOWERING _x___Sponge bathe until office visit. ____Sitting in tub of warm water may relieve discomfort ____May tub bathe ____May shower in 24-48 hours with clean linen unless otherwise instructed by your Doctor DRESSING: __x__Keep operative area clean and dry _x___Check the operative area for signs of bleeding. Apply pressure to the bleeding site if necessary. ____Change drip pad as needed ____Wear scrotal support for comfort WATCH FOR SIGNS OF INFECTION: (Usually appears 36-48 hours after surgery) Increased temperature (101 degrees Fahrenheit or higher) Redness or swelling Increased pain Foul odor or drainage If you have any questions, please call your doctor at the number listed on your follow-up instructions. Additional Information VACCINATE! IT SAVES LIVES! Members of the community who have not yet received the COVID-19 vaccine and would like to receive it can visit one of [facility] vaccine clinics. There are many vaccine clinic locations within the [facility]. For locations and available times, please visit [email or web address] It is important to note that some COVID mobile vaccine clinics are held outdoors and may be canceled in rainy or stormy conditions. To learn more about pediatric vaccinations (ages 5-11), we invite you to visit the [facility] webpage. [email or web address] learn more about the COVID-19 vaccine, we invite you to visit the CDC website for a list of frequently asked questions.https://www.cdc.gov/coronavirus/2019-ncov/vaccines/faq.html [facility] Patient Portal Access Instructions: Stay connected with your healthcare team and access your personal medical information anytime with the [facility] Patient Portal. Please follow the directions below to create your [employer] account: 1.Access the email account you provided upon registration to the hospital/physician office.2.Look for an invitation email from [facility].3.Open the email and access the invitation link: AcceptInvitation to [employer].4.Fill in the required trujillo to create your account. To access your account, visit [email or web address]. Click the blue button labeled Access Patient Portal and then log in with the username and password that you created in the steps above. You will be able to view your test results, lab results, a summary of your visits, upcoming appointments and more. There is also a convenient messaging option where you can send secure messages to your p rovider. In addition, you will have the ability to download any documents or summaries to your computer and/or send the information securely to a physician. Remember that your healthcare information is confidential, so carefully consider who you will allowto register on the [employer] Patient Portal for access to your information. You can also access the [facility] on the [employer] [employer] [facility]. Simply click on Patient Portal and then log into your account. If you would like to receive a full copy of your medical records, please contact the [facility] Medical Records Department by calling [phone], Saturday through Saturday between 8 a.m. and 4:30 p.m. HOW TO SAFELY DISPOSE OF PRESCRIPTION MEDICATIONS Please use one of the following methods to safely dispose of your unused medications. 1.Use a drug disposal kit: the drug disposal pouch allows you to safely discard your old and unuseddrugs. Ask your nurse to give you one when you are discharged.2.Visit a local take-back location: Many local pharmacies and police departments have programs that collect old and unwanted prescriptiondrugs. Call your local pharmacy or go to http://bit.ly/1H2Ax2w to find one close to you.3.Make use of household items: Use cat litter or old coffee grounds to dispose medications if other options arenot available. Mix your drugs with these household products, seal them in an airtight container andthrow it into the garbage. Call [facility]: [phone] to be sure your drugs can be disposed of in this way. Some medicines may require a different approach.4.Never flush your medications down the toilet. IF YOU HAVE BEEN PRESCRIBED AN OPIOID FOR PAIN If you have been prescribed an opioid (such as hydrocodone, oxycodone or morphine), it is critical to understand the possible side effects and risks of opioid pain medications. Even when taken as directed, opioids can have several side effects including: Tolerance, meaning you might need to take more of a medication for the same pain relief. Nausea, vomiting and/or constipation. Sleepiness, dizziness, dry mouth, confusion, depression or itching. Physical dependence, meaning you have withdrawal symptoms when a medication is stopped, can develop within a few days. KNOW YOUR RESPONSIBILITIES It is important to know exactly how much and how often to take the opioid pain medications you are prescribed. Never take opioids in higher amounts or more often than prescribed. Do not combine opioids with alcohol or other drugs that cause drowsiness, such as benzodiazepines, also known as benzos, including diazepam and alprazolam, muscle relaxants or sleep aids. Never sell or share prescription opioids. This is illegal. Store opioids in a secure place and out of reach of others (including children, family, friends and visitors). The last page of this document has been signed and retained as a CHART COPY. Signatures Patient Education Materials 1- SDS General Discharge Guidelines (07/19/2023) (Custom) Medication Leaflets My discharge plan and instructions have been reviewed and explained to me and IMARKO JEREMY understand my current condition and have read and understand these discharge instructions. I have receiveda written copy of the plan/instructions. If I have questions, I am aware that I should contact my do ctor. 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 Patient location: PACU. Assessment Postanesthesia assessment Vitals: Vital signs from flowsheet : Vital Signs 01/16/2024 11:32 EDT Temperature Temporal Artery 36.4 DegC Heart Rate Monitored 77 bpm Respiratory Rate 16 br/min Systolic Blood Pressure Non-Invasive 112 mmHg Diastolic Blood Pressure Non-Invasive 70 mmHg Mean Arterial Pressure (NBP) 83 mmHg 01/16/2024 11:10 EDT Heart Rate Monitored 83 bpm Respiratory Rate 16 br/min Systolic Blood Pressure Non-Invasive 116 mmHg Diastolic Blood Pressure Non-Invasive 81 mmHg Mean Arterial Pressure (NBP) 94 mmHg 01/16/2024 10:52 EDT Temperature Temporal Artery 36.5 DegC Heart Rate Monitored 79 bpm Respiratory Rate 16 br/min Systolic Blood Pressure Non-Invasive 153 mmHg HI Diastolic Blood Pressure Non-Invasive 90 mmHg HI Mean Arterial Pressure (NBP) 111 mmHg 01/16/2024 10:46 EDT Systolic Blood Pressure Non-Invasive 130 mmHg mmHg Diastolic Blood Pressure Non-Invasive 70 mmHg mmHg 01/16/2024 10:45 EDT Respiratory Rate - Anes 20 br/min br/min 01/16/2024 10:43 EDT Systolic Blood Pressure Non-Invasive 116 mmHg mmHg Diastolic Blood Pressure Non-Invasive 67 mmHg mmHg 01/16/2024 10:41 EDT Systolic Blood Pressure Non-Invasive 90 mmHg mmHg Diastolic Blood Pressure Non-Invasive 64 mmHg mmHg 01/16/2024 10:40 EDT Heart Rate Monitored 75 bpm bpm Respiratory Rate - Anes 5 br/min br/min 01/16/2024 10:37 EDT Systolic Blood Pressure Non-Invasive 97 mmHg mmHg Diastolic Blood Pressure Non-Invasive 60 mmHg mmHg 01/16/2024 10:35 EDT Temperature (Route Not Specified) 36.21 DegC DegC Heart Rate Monitored 72 bpm bpm Respiratory Rate - Anes 10 br/min br/min 01/16/2024 10:34 EDT Systolic Blood Pressure Non-Invasive 97 mmHg mmHg Diastolic Blood Pressure Non-Invasive 61 mmHg mmHg 01/16/2024 10:32 EDT Systolic Blood Pressure Non-Invasive 102 mmHg mmHg Diastolic Blood Pressure Non-Invasive 58 mmHg mmHg 01/16/2024 10:30 EDT Temperature (Route Not Specified) 36.24 DegC DegC Heart Rate Monitored 78 bpm bpm Respiratory Rate - Anes 10 br/min br/min 01/16/2024 10:28 EDT Systolic Blood Pressure Non-Invasive 108 mmHg mmHg Diastolic Blood Pressure Non-Invasive 64 mmHg mmHg 01/16/2024 10:26 EDT Systolic Blood Pressure Non-Invasive 116 mmHg mmHg Diastolic Blood Pressure Non-Invasive 66 mmHg mmHg 01/16/2024 10:25 EDT Temperature (Route Not Specified) 36.21 DegC DegC Heart Rate Monitored 90 bpm bpm Respiratory Rate - Anes 10 br/min br/min 01/16/2024 10:22 EDT Systolic Blood Pressure Non-Invasive 121 mmHg mmHg Diastolic Blood Pressure Non-Invasive 74 mmHg mmHg 01/16/2024 10:20 EDT Temperature (Route Not Specified) 36.25 DegC DegC Heart Rate Monitored 93 bpm bpm Respiratory Rate - Anes 10 br/min br/min Systolic Blood Pressure Non-Invasive 118 mmHg mmHg Diastolic Blood Pressure Non-Invasive 99 mmHg mmHg 01/16/2024 10:16 EDT Systolic Blood Pressure Non-Invasive 112 mmHg mmHg Diastolic Blood Pressure Non-Invasive 75 mmHg mmHg 01/16/2024 10:15 EDT Heart Rate Monitored 105 bpm bpm Respiratory Rate - Anes 0 br/min br/min 01/16/2024 10:14 EDT Systolic Blood Pressure Non-Invasive 97 mmHg mmHg Diastolic Blood Pressure Non-Invasive 60 mmHg mmHg 01/16/2024 10:11 EDT Systolic Blood Pressure Non-Invasive 125 mmHg mmHg Diastolic Blood Pressure Non-Invasive 76 mmHg mmHg 01/16/2024 10:10 EDT Respiratory Rate - Anes 0 br/min br/min 01/16/2024 7:00 EDT Temperature Temporal Artery 36.4 DegC Peripheral Pulse Rate 68 bpm Respiratory Rate 16 br/min Systolic Blood Pressure Non-Invasive 116 mmHg Diastolic Blood Pressure Non-Invasive 66 mmHg . Mental status: at preoperative baseline. Respiratory function: respirations are non-labored, Stable. Respiratory support: none. CV function: Stable. Cardiovascular support: none. Pain: Satisfactory. Nausea status: Satisfactory. Postoperative hydration status: within normal limits. Notes: Patient is sufficiently recovered from anesthesia to participate in the evaluation. No follow-up care needed. No complications post-anesthesia.. Digitally Signed by ALEXYS WEINSTEIN MD on 01/16/2024 12:11 PM [id number] Note ORIGINAL EXAMINATION: SPOT FLUOROSCOPIC IMAGES01/16/2024 11:10 am COMPARISON: None. HISTORY: ORDERING SYSTEM PROVIDED HISTORY: Reason for Exam: PHASE I NEUROSTIM FLUOROSCOPY TIME: 28.5 seconds. Total dose: 22.87 mGy. IMPRESSION: As above. Interpreted by: Alessandro Capellan Preliminary Report By: Alessandro Capellan Electronically signed By Alessandro Capellan Dictated Date: 01/16/2024 11:14:51 AM Prelim Date: 01/16/2024 11:15:23 AM Sign Date: 01/16/2024 11:15:23 AM Ordering Provider: [facility]03-14-2024 Anesthesiology Consult note Patient: AJIT ZHU Age: 38 years Sex: Male : 1985 Associated Diagnoses: None Author: ALEXYS WEINSTEIN MD Preoperative Information Time of last food or liquid consumption: 01/16/2024 00:00:00 Anesthesia history Patient's history: negative. Family's history. Health Status Allergies: Allergic Reactions (Selected) NKA, Allergies (1) ActiveReaction NKANone Documented Current medications: (Selected) Inpatient Medications Ordered Kefzol: 2 gram(s), 20 mL, 240 mL/hr, IV Push (INT), PREOP pharm NS 1,000 mL: 20 mL/hr, Intravenous ceFAZolin: 1 gram(s), 10 mL, 0 mL/hr, Topical (INT), PREOP pharm lidocaine 1% preservative-free injectable solution: 2.5 mg, 0.25 mL, Intradermal, prep pharm Prescriptions Prescribed mupirocin 2% topical ointment: 1 kirk, Topical, BID, Bilateral intranasal application twice daily x 5 days pre-surgery., 22 gram(s), 0 Refill(s) tiZANidine 4 mg oral tablet: 4 mg, 1 tab(s), Oral, TID, PRN: Muscle spasm, 90 tab(s), 0 Refill(s) Documented Medications Documented Tylenol 325 mg oral capsule: 650 mg, Oral, q4h, PRN: Pain, scale 1-3, 0 Refill(s), Medications (4) Active Scheduled: (3) ceFAZolin 1 gram(s) 10 mL, Topical (INT), PREOP pharm ceFAZolin syringe 2 gram(s) 20 mL, IV Push (INT), PREOP pharm lidocaine 1% (MPF) 2 mL vial pf 2.5 mg 0.25 mL, Intradermal, prep pharm Continuous: (1) NS (0.9% nacl) 1,000 mL 1,000 mL, Intravenous, 20 mL/hr PRN: (0) Problem list: Medical Back pain / SNOMED CT 047666753 / Confirmed Bipolar disorder / SNOMED CT 89195480 / Confirmed Cervical disc disease / SNOMED CT 0175181951 / Confirmed Chronic low back pain / SNOMED CT 169777293 / Confirmed Degenerative disc disease, lumbar / SNOMED CT 88350602 / Confirmed Family hx of colon cancer / SNOMED CT 335465120 / Confirmed GERD (gastroesophageal reflux disease) / SNOMED CT 736622774 / Confirmed Low back pain radiating to right leg / SNOMED CT 195661395 / Confirmed Bilateral lumbar radiculopathy / SNOMED CT 818636558 / Confirmed Lumbar spondylosis / SNOMED CT 671517315 / Confirmed Numbness and tingling of right leg / SNOMED CT 0990133346 / Confirmed retirement prescription opiate use / SNOMED CT 032543342 / Confirmed, Active Problems (21) Anxiety Back pain Bilateral lumbar radiculopathy Bipolar disorder BMI 33.0-33.9,adult Cervical disc disease Chronic low back pain Chronic neck pain Contact lenses COVID Degenerative disc disease, lumbar Depression Family hx of colon cancer GERD (gastroesophageal reflux disease) 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 Family History: Cancer of colon Father () Brother () HTN - Hypertension Mother Procedure history: Epidural steroid injection ([id number]) on 10/07/2023 at 38 Years. Laminectomy and discectomy ([id number]) on 09/10/2023 at 38 Years. 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 Comments: 08/27/2023 10:00 Danny Oden RN abdominal wall Shoulder- metal plate ([id number]) in 2018 at 32 Years. Comments: 08/27/2023 9:55 Danny Oden RN left left Wrist- bone fragments removed ([id number]) in 2009 at 25 Years. Comments: 08/27/2023 9:56 Danny Oden RN left right ACL - Anterior cruciate ligament rupture ([id number]) in 2008 at 24 Years. Comments: 08/27/2023 9:56 Danny Oden RN right knee Loss of teeth due to extraction ([id number]). Colonoscopy (747326734). 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 Physical Examination Vital Signs 01/16/2024 7:00 EDT Temperature Temporal Artery 36.4 DegC Peripheral Pulse Rate 68 bpm Respiratory Rate 16 br/min Systolic Blood Pressure Non-Invasive 116 mmHg Diastolic Blood Pressure Non-Invasive 66 mmHg Vital Signs(last 24 hrs) Last Charted ENE906 mmHg (JAN 15 07:00) DBP66 mmHg (JAN 15 07:00) Measurements from flowsheet : Measurements 01/16/2024 7:00 EDT Height 172.7 cm Height in inches 68 inch(es) Admission Weight 96.3 kg Weight Lbs 211.9 lb Weight Method Actual [place] Body Weight 68.38 kg Type of Scale Used Bed scale Admission Body Mass Index 32.29 m2 Pain assessment: Pain Assessment 01/16/2024 7:00 EDT Primary Pain Location Lower back Primary Pain Laterality Bilateral Primary Pain Intensity 7 Primary Pain Nonverbal Response Nods Yes Pain Scale Type 0-10 Pain scale . General: Alert and oriented, No acute distress. Airway: Mallampati classification: II (soft palate, fauces, uvula visible). Dentition Evaluation: Own teeth. Respiratory: Lungs are clear to auscultation. Cardiovascular: Normal rate. Heart Sounds: Normal. Review / Management Results review: No qualifying data available , Lab results 01/16/2024 7:09 EDT SN - Preop - CTm Pt in SDS Room 01/16/2024 7:00 SN - Preop - CTm Pt Ready for OR/Proced 01/16/2024 7:09 01/16/2024 7:08 EDT Antecubital Left 01/16/2024 20 gauge Peripheral IV Activity: Insert new site Peripheral IV Dressing Condition: Clean, Dry, Intact Peripheral IV Dressing Activity: Applied, Transparent dressing Peripheral IV Line Status/Patency: Continuous infusion Peripheral IV Line Care: Secured with tape Peripheral IV Site Condition: No complications Peripheral IV Equipment: Manual Peripheral IV Number of Attempts: 1 Sodium Chloride 0.9% Begin Bag 1,000 mL mL 01/16/2024 7:02 EDT Designated Person #1 We May Share KEVIN Jasmine [phone] Designated Person #1 Relationship Significant other Privacy Restrictions Requested None Status N/A Sensory Deficits None Sleep Apnea Snore No Sleep Apnea Tired No Sleep Apnea Obstruction No Sleep Apnea Pressure No Sleep Apnea BMI No Sleep Apnea Age No Sleep Apnea Neck No Sleep Apnea Gender Yes Sleep Apnea Score 1 Diagnosed With Sleep Apnea No Advanced Directives No - refuses information Infectious Disease Symptoms Patient states no symptoms Infectious Disease Recent Exposure No Alcohol and Drug Use No Employee of Institutional Living No Health Care Employee No History of Exposure to TB No History of Positive Chest X-Ray for TB No History of Positive TB Skin Test No Homeless No Known Immunosuppression No Recent Immigrant No Resident of Institutional Living No Bloody Sputum No Fatigue No Fever No Loss of Appetite No Night Sweats No Persistent Cough > 3 Weeks No Weight Loss No Surgery Scheduled On Date/Time 01/16/2024 10:45 Patient Aware Date/Time Of Surgery Yes Arrival Time the Day of Surgery 01/16/2024 7:00 Patient Aware of Arrival Time Yes Previous Surgery At This Facility Yes Pre-Op Patient Education NPO after midnight, No smoking after midnight, No makeup, No jewelry, Responsible Constitution Party, Aware of surgery location, Pre-op education done, 2 bottles CHG wash with instructions given, No ordered medications, Instructed to bring home medications, VTE prevention handout given, MRSA protocol education provided SN - Preprocedure Comments Spoke with patient, Verbalizes/Nonverbally indicates understanding Barriers to Learning None evident Teaching Method Explanation, Printed materials Preferred Spoken Language Slovenian Preferred Written Language Slovenian Teaching Evaluation Verbalizes/Nonverbally indicates understanding Safety Brochure Information Reviewed Yes Chet Bustamante Video Viewed No Information Given by Patient Patient's Current Physicians Patient's Current Physicians Discharge To, Anticipated Home independently Prev Test Positive/Diagnosis w/COVID-19 Yes Previous COVID-19 Positive Date 2021 Current Quarantine/Isolated any Illness No Any Contact with Sick Animals/Birds No Traveled Anywhere in Last 30 Days No Lost Weight Unintentionally Recently No Eat Poorly Due to Decreased Appetite No Total MST Score 0 N/A Personal Devices, Patient Valuables Contact lenses, Glasses Anesthesia/Transfusions Prior anesthesia Admission Note-Nursing Same Day Patient History 01/16/2024 7:00 EDT Height 172.7 cm Height in inches 68 inch(es) Admission Weight 96.3 kg Weight Lbs 211.9 lb Weight Method Actual [place] Body Weight 68.38 kg Type of Scale Used Bed scale Admission Body Mass Index 32.29 m2 Temperature Temporal Artery 36.4 DegC Peripheral Pulse Rate 68 bpm Respiratory Rate 16 br/min Systolic Blood Pressure Non-Invasive 116 mmHg Diastolic Blood Pressure Non-Invasive 66 mmHg Primary Pain Location Lower back Primary Pain Laterality Bilateral Primary Pain Intensity 7 Primary Pain Nonverbal Response Nods Yes Pain Scale Type 0-10 Pain scale Heart Rhythm Regular Respirations Unlabored Respiratory Pattern Regular Oxygen Therapy Room air Oxygen Saturation 95 % Abdomen Description Non-distended, Soft Urinary Elimination Voiding, no difficulties Skin Temperature Warm Skin Description Normal for ethnicity Skin Integrity Intact Mucous Membrane Color [place] Skin Moisture General Dry IV Present Present Neurological Symptoms Tingling Extremity Movement Equal Characteristics of Speech Clear Level of Consciousness Alert ARLIN Yes Strength All Extremities Strong Tone All Extremities Normal Sensation All Extremities Intact Violence Risk Confused No Violence Risk Irritable No Violence Risk Boisterous No Violence Risk Verbal Threats No Violence Risk Physical Threats No Violence Risk Attacking Objects No Violence Risk Predictor Score 0 Violence Risk Intervention None Violence Risk Current Interventions None Affect/Behavior Appropriate, Calm, Cooperative Orientation Oriented x 4 Allergies No Consent Form Signed Yes Patient Dressed In Hospital gown Pre-op Preparation Glasses removed, Undergarments removed CHG Preoperative Wash/Wipe Night before procedure, Day of procedure, Site specific wipe Non-CHG Preoperative Shampoo Not applicable Preop Nasal Swab Povidone-Iodine History & Physical Update On Chart No History & Physical On Chart Yes Obstructive Sleep Apnea Assess Completed Yes MRSA/MSSA Protocol Yes Dominik Motor (2) Moves 4 extremities voluntarily or on command Dominik Respirations (2) Spontaneous respiration without support, RR > 10 Dominik Blood Pressure (2) BP 20% above or below preanesthetic level Dominik Pulse (2) Pulse 20% above or below preanesthetic level Dominik Oxygen Saturation (2) 94% or more Dominik Level of Consciousness (2) Fully awake Dominik III Score 12 Belongings At Bedside Cell phone, Earrings, Glasses, Pants, Shirt, Shoes, Socks, Undergarments Assistive Device None Positioning Repositions self Mobility Assistance Level Independent Activity Status ADL Awake, Resting NPO Status Maintained Standard Safety ID band on, Call device within reach, Bed in low position, Wheels locked, Upper/Half-Length side-rails up, Visitor at bedside, Non-Slip footwear Demonstrates Correct Call Light Use Yes Allergy Band on and Verified No Blood Band on and Verified No Patient ID Band on and Verified Yes Implants Verified Yes Pacemaker/AICD Verified Yes Site Verified by Patient/Family Yes Last Fluid Intake 01/15/2024 21:00 Last Food Intake 01/15/2024 21:00 Last Void 01/16/2024 6:30 01/15/2024 13:46 EDT Surgery Scheduled On Date/Time 01/16/2024 10:45 Arrival Time the Day of Surgery 01/16/2024 7:00 Patient Aware of Arrival Time Yes Pre-Op Patient Education NPO after midnight, No smoking after midnight, No makeup, No jewelry, Responsible Constitution Party, Aware of surgery location, Pre-op education done, 2 bottles CHG wash with instructions given, No ordered medications, Instructed to bring home medications, VTE prevention handout given, MRSA protocol education provided (Modified) SN - Preprocedure Comments Spoke with patient, Verbalizes/Nonverbally indicates understanding Admission Note-Nursing Patient History PreTest (Modified) . Assessment and Plan [place] [employer] (ASA) physical status classification: Class II. Anesthetic Preoperative Plan Anesthetic technique: General. Maintenance airway: Oral endotracheal tube. Risks discussed: nausea, vomiting, headache, sore throat, dental injury, hypotension, allergic reaction, serious complications. Informed consent: signed by patient. Notes: Patient was seen and examined by Alexys zhao MD. The medical record was reviewed. Consultations, lab results , radiographic results and cardiovascular studies examined and noted. Anesthesia was explained in detail and questions were invited and answered. We will proceed as outlined inthe plan above.. Digitally Signed by ALEXYS WEINSTEIN MD on 01/16/2024 09:11 AM [id number] ORIGINAL EXAMINATION: TWO XRAY VIEWS OF THE CHEST01/13/2024 11:43 am COMPARISON: 08/27/2023 HISTORY: ORDERING SYSTEM PROVIDED HISTORY: Reason for Exam: cough FINDINGS: The cardiomediastinal contours are normal. There is no consolidation, vascular congestion, pleural effusion, or pneumothorax. There are no acute abnormalities to osseous structures. Prior fixation of the left clavicle noted. IMPRESSION: No acute radiographic findings. Interpreted by: Hannah García DO Preliminary Report By: Hannah García DO Electronically signed By Hannah García DO Dictated Date: 01/13/2024 11:48:05 AM Prelim Date: 01/13/2024 11:49:08 AM Sign Date: 01/13/2024 11:49:08 AM Ordering Provider: [facility]12-22-2023 Note ORIGINAL EXAMINATION: 2 XRAY VIEWS OF THE LUMBAR SPINE 10/25/2023 4:04 pm COMPARISON: CT lumbar spine on 09/13/2023 HISTORY: ORDERING SYSTEM PROVIDED HISTORY: Reason for Exam: back pain s-p fall FINDINGS: There are 4 lumbar vertebrae. The lumbar spine alignment is normal. Vertebral bodies are normal in height with no fracture. Mild narrowing of intervertebral disc space is present, greatest at L4-S1. Facet joints have normal alignment and appear unremarkable. There is no evidence of spondylolysis. Patient has had laminectomy at the L4 level. IMPRESSION: No fracture or subluxation of lumbar spine. Mild lumbar spondylosis. Interpreted by: Kurt Justice MD Preliminary Report By: Kurt Justice MD Electronically signed By Kurt Justice MD Dictated Date: 10/26/2023 1:12:58 AM Prelim Date: 10/26/2023 1:15:16 AM Sign Date: 10/26/2023 1:15:16 AM Ordering Provider: [facility]12-08-2023 NoteORIGINAL PROCEDURE: FLUOROSCOPIC GUIDED EPIDURAL STEROID DCANOONVF16/4/2023 10:54 am INDICATION: Right leg pain. FINDINGS: The procedure was performed in the VIR Suite following informed consent and a Time Out. The patient was placed in a prone position. The lumbar region was prepped and draped. With fluoroscopic guidance, an appropriate skin entry site was identified and anesthetized. A 22-G spinal needle was advanced into the epidural space utilizing a left L3/L4 paraspinal approach with lost of resistance technique. Contrast was injected to confirm the epidural location of the needle tip. Depo-medrol 80 mg was infused into the epidural space. A total of 5 mL of a mixture of 2 mL of preservative free saline and 2 mL of lidocaine 1% was then infused into the epidural space. The patient's pre-procedure pain was 10 /10. Immediate post procedure pain was 4 /10. There were no apparent complications. The patient tolerated the procedure well. Total Fluoroscopy Time: 0.8 minutes Reference Air Kerma (JOHN): 65.97 mGy IMPRESSION: 1. Successful lumbar epidural injection for symptomatic relief. 2. Interval decrease in pain from 10/10 to 4/10. Procedure was performed by Barbara Arana PA-C Interpreted by: Cory Carrington MD Preliminary Report By: Barbara Arana Electronically signed By Cory Carrington MD Dictated Date: 10/08/2023 9:44:04 AM Prelim Date: 10/08/2023 9:47:57 AM Sign Date: 10/11/2023 12:17:08 PM Ordering Provider: [facility] [place]10-07-2023 Evaluation + Plan noteExtracted from: Title:IR Pre-Procedure H&P Author:CHOCO MAYES PA-C Date:10/07/23 IR PREPROCEDURE H&P UPDATE IF A HISTORY AND PHYSICAL EXAMINATION HAS BEEN COMPLETED PRIOR TO ADMISSION TO THE HOSPITAL, AN UPDATED EXAMINATION MUST BE COMPLETED AND DOCUMENTED WITHIN 24 HOURS AFTER ADMISSION OR REGISTRATION BUT BEFORE A SURGICAL PROCEDURE. I have examined the patient, reviewed the H&P, and there are no changes unless noted below: _ The most recent H&P/Office Note was performed on 09/23/2023 and can be found in the [facility] Electronic [facility] Records (tibdit). Davy Mayes PA-C Interventional Radiology Pager: [phone] IR dept: [phone] Available on [facility] Future Appointments Appointment Date:11/13/2023 11:30:00 AM Scheduled Provider:MIGUEL CHA MD Location:[facility] Appointment Type:[facility] 12-04-2023 Note* ANDRIA Trevino Conrad: SIGN, AUTHOR, PERFORM Event Display: IR Procedure Record Authored Date: IR Procedure Record Summary Primary Physician: BARBARA ARANA PA-C Finalized Date/Time: 10/07/23 10:51:06 Pt. Name: AJIT ZHU/Sex: 1985 Male Med Rec #: [id number] Physician: Financial #: [id number] Pt. Type: O Room/Bed: / Admit/Disch: 10/07/23 08:43:41 - Institution: Allergies identified in patient's electronic medical record at time of printing on 10/07/23 Entry 1 Substance NKA Reaction Type Allergy Last Modified By: Davy Coates LPN 01/16/21 13:10:45 Case Attendance- IR Entry 1 Entry 2 Entry 3 Case Attendee BARBARA ARANA, [place], Credit Counselor Maia Graf PA-C Role Performed Primary Surgeon Scrub Technologist Circulating Technologist Details Time In 10/07/23 10:21:00 10/07/23 10:21:00 10/07/23 10:21:00 Time Out 10/07/23 10:50:00 10/07/23 10:50:00 10/07/23 10:50:00 Procedure/Preference IR Epidural Injection IR Epidural Injection IR Epidural Injection Card (SN) (SN) (SN) Last Modified By: ANDRIA Trevino RN Corey Snider, RN Corey 10/07/23 10:50:46 10/07/23 10:50:46 10/07/23 10:50:46 Entry 4 Case Attendee ANDRIA Trevino Role Performed Sheet Taker 1 Details Time In 10/07/23 10:21:00 Time Out 10/07/23 10:50:00 Procedure/Preference IR Epidural Injection Card (SN) Last Modified By: ANDRIA Trevino 10/07/23 10:50:46 Radiology Procedures- IR Entry 1 Procedure/Preference IR Epidural Injection Actual Procedure IR EPIDURAL INJECTION Card (SN) Primary Procedure Yes Primary Surgeon BARBARA ARANA PA-C Anesthesia/Sedation Local Type Additional Procedure Times Start 10/07/23 10:29:00 Stop 10/07/23 10:46:00 Specialty Service SN Radiology Procedure EBL 0 mL Last Modified By: ANDRIA Trevino 10/07/23 10:50:54 Radiology Procedure Details - IR Entry 1 Radiology Sedation Case Times Sedation Total Time 0min Radiology - Fluid/Drainage Radiology Contrast Contrast Used? Yes Dose 3 mL Medication OMNIPAQUE 180 20ML 10/PK Y-[address] Radiology Flouroscopy Fluoroscopy Used? Yes Fluoro Dose (mGy) 64.97 Fluoro Time 0.8min Radiology Local Local Used? Yes Local Type: lidocaine 2% Local Dose 4ml Radiology Procedure Site Site/Location L3-L4 Site Condition No complications Dressing Type Bandaids Technologist Notes 10mg depo-medol, 2ml 1% lidocaine and 2ml preservative free NS injectected into epidural space at L3-L4 Last Modified By: ANDRIA Trevino 10/07/23 10:50:38 General Case Data - IR Entry 1 Case Information Room IR 16 Case Level IR Level 2 Wound Class None Specialty SN Radiology Procedure ASA Class None Diagnosis Preop Diagnosis right leg pain Postop Same As Preop Yes Postop Diagnosis right leg pain Last Modified By: ANDRIA Trevino 10/07/23 10:18:47 Procedure Case Times- IR Entry 1 Patient In Procedure Patient In OR 10/07/23 10:21:00 Patient Out of OR 10/07/23 10:50:00 Procedure Start/Stop Procedure Start Time 10/07/23 10:29:00 Procedure Stop Time 10/07/23 10:46:00 Last Modified By: ANDRIA Trevino 10/07/23 10:50:45 Immediate Post Procedure Note - IR Entry 1 Immediate Post Yes Findings successful lumbar NELSON Procedure Note displayed for Physician to review Closure Technique Closure Technique Other than Primary Last Modified By: ANDRIA Trevino 10/07/23 10:47:27 Immediate Post Procedure Note - IR Signed By: BARBARA ARANA PA-C 10/07/23 10:46 Allergy Information- IR Entry 1 Allergies Reviewed? Yes Allergies Reviewed Medical Record With Last Modified By: ANDRIA Trevino 10/07/23 10:16:02 Radiology Protocols/Time Out- IR Entry 1 Preprocedure Clinician Verifies Correct patient ID When Clinically Confirmation of correct using name & date Indicated side(s) and site(s), or MRN, Accurate Correct diagnostic and procedure, complete radiology tests Informed Consent, H & P available, Required update immediately blood products, prior to procedure, if implants, devices applicable and/or special equipment available OR/Procedure Room/Bedside Time 10/07/23 10:29:00 Clinician Verifies Correct patient identity including EMR & records using name and date or medical record number, Accurate procedure consent form, Correct patient position, Necessary equipment is available, Anticipated non-routine events with surgical team (case duration, estimated blood loss, patient specific concerns)., [place] patient factors for recovery and management identified with surgical team. When Applicable Confirmation correct Team Members BARBARA ARANA side and site marked, Present for Time Out PA-CCarlton Alexis Relevant images and Tech, [place], Credit Counselor results are properly Belinda Moss RN labeled and Conrad appropriately displayed, Alcohol based prep dry, Double verification of sterility indicators complete Instrument Sterility Team Members BARBARA ARANA Verifying Sterility PA-CCarlton [place] Tech Procedure IR Epidural Injection (SN) Last Modified By: ANDRIA Trevino 10/07/23 10:29:49 Skin Prep- IR Entry 1 Procedure IR Epidural Injection (SN) Skin Prep Prep Area Back Side Lower, Bilateral By [place] Vincent Prep Agents Betadine Solution Hair Removal Method N/A Last Modified By: ANDRIA Trevino 10/07/23 10:17:53 Patient Positioning- IR Entry 1 Procedure IR Epidural Injection Body Position OP Prone (SN) Feet Uncrossed? Yes Pressure Points Yes Checked Last Modified By: ANDRIA Trevino 10/07/23 10:18:03 Radiology Procedure Plan - IR Entry 1 Radiology - Nursing Care Plan Outcome Statement The patient Outcome Statement The patient receives demonstrates knowledge Cont. appropriate of the expected medication(s), safely responses to the administered during the operative/invasive perioperative/invasive procedure., The period., The patient is patient's value system, free from signs and lifestyle, ethnicity, symptoms of injury and culture are caused by extraneous considered, respected, objects (equipment, and incorporated in the instrumentation, perioperative plan of sponges, or sharps). care., The patient is free from signs and symptoms of infection., The patient is free from signs and symptoms of injury related to positioning. Radiology - Action Plan Outcomes Met? Yes Novelty Maker ANDRIA Trevino Completing Procedure Plan Last Modified By: ANDRIA Trevino 10/07/23 10:18:30 Case Comments <None> Finalized By: ANDRAI Trevino Document Signatures Signed By: ANDRIA Trevino 10/07/23 10:51 [facility] 12-04-2023 Hospital Discharge instructions Patient Education 10/07/2023 10:43:01 Radiology- Procedure/Biopsy 02/17/2020 (CUSTOM) SUPERIOR Radiology Procedure/Biopsy Discharge Instructions Interventional Radiology [facility] [address] [place] [address] Today, you had a Epidural injection . Thisprocedure/biopsy was done to help your doctor diagnose and treat the signs and symptoms you have been experiencing. These instructions should be followed after your procedure to reduce the chance of experiencing complications. Please follow the instructions below to reduce the chance of experiencing complications. Diet: Resume your normal diet as tolerated. Drink extra fluids. Activity: Rest for the remainder of the day. You may resume your normal activity tomorrow. You may bathe/shower after 24 hours. Do not soak or submerge site (including swimming or hot tubs) until a scab forms. No heavy lifting, pushing, or straining. Dressing: Check the site for bleeding. Apply pressure to the site if bleeding excessively and call your physician. Change the band aid as needed; it can be removed after 24 hours. Keep the site dry at all times until a scab forms over the site. Pain Control: The puncture site may be sore for 1 to 2 days following the procedure. [id number] pain medication should be used for pain or discomfort. Please check with the physician who ordered this procedure for you for their specific recommendations. If your pain is not relieved or becomes more severe, notify the physician who sent you for this procedure. If you were sedated for this procedure: Avoid alcoholic beverages for 24 hours after your procedure. Do not drive or operate heavy machinery for 24 hours after your procedure. Do not make any legal decisions for 24 hours after your procedure. Medication: Please resume on . When to seek medical help: Lightheadedness, dizziness, or fainting. Severe pain or swelling. Severe nausea or vomiting. Infection: fever greater than 101 degrees, chills, redness, warmth, swelling, bleeding, or pus frompuncture site. If you experience any of these issues during the first 24 hours, please follow the instruction below: 8:00 am- 5:00 pm call [phone] After 5:00 pm call [phone] After 24 hours, contact the physician who ordered this procedure for you. Obtaining test results: Please make an appointment with your doctor to obtain your test results. They are usually availablewithin 4 to 7 business days. Do not assume everything is normal if you have not heard from your doctor or medical facility. It is important for you to follow up on all of your test results. Special Instructions: Follow Up Care 09/25/2023 15:30:01 With:Follow up with primary care provider Address:Unknown When: Unknown [facility] 12-04-2023 Procedure note IR Brief Post Procedure Note Preprocedure Dx: right leg pain Post Procedure Dx: Same Procedure: Lumbar epidural steroid injection under fluoroscopy Anesthesia: Local EBL: Minimal Complications: None Status: Unchanged Findings: 1. Successful lumbar epidural steroid injection at L3-4. 1 cc Decadron 10 mg was administered in the epidural space followed by a mixture of 2 cc preservative free normal saline and 2 cc lidocaine 1% 2. Pre-procedure pain 10/10 in severity. Post-injection pain 4/10 in severity Plan: 1. Discharged home in stable condition Full report to follow. Barbara Arana PA-C Interventional Radiology Pager # [phone] IR dept: [phone] Available on [employer] Digitally Signed by BARBARA ARANA PA-C on 10/07/2023 10:56 AM [id number] IR Procedure Record Summary Primary Physician: BARBARA ARANA PA-C Finalized Date/Time: 10/07/23 10:51:06 Pt. Name: ANGEL ZHUBRYCE Norris/Sex: 1985 Male Med Rec #: [id number] Physician: Financial #: [id number] Pt. Type: O Room/Bed: / Admit/Disch: 10/07/23 08:43:41 - Institution: Allergies identified in patient's electronic medical record at time of printing on 10/07/23 Entry 1 Substance NKA Reaction Type Allergy Last Modified By: Davy Coates LPN 01/16/21 13:10:45 Case Attendance- IR Entry 1 Entry 2 Entry 3 Case Attendee BARBARA ARANA, [place] Goyal, Credit CounselorElena Graf PA-C Role Performed Primary Surgeon Scrub Technologist Circulating Technologist Details Time In 10/07/23 10:21:00 10/07/23 10:21:00 10/07/23 10:21:00 Time Out 10/07/23 10:50:00 10/07/23 10:50:00 10/07/23 10:50:00 Procedure/Preference IR Epidural Injection IR Epidural Injection IR Epidural Injection Card (SN) (SN) (SN) Last Modified By: ANDRIA Trevino RN Corey Snider, RN Corey 10/07/23 10:50:46 10/07/23 10:50:46 10/07/23 10:50:46 Entry 4 Case Attendee ANDRIA Trevino Role Performed Sheet Taker 1 Details Time In 10/07/23 10:21:00 Time Out 10/07/23 10:50:00 Procedure/Preference IR Epidural Injection Card (SN) Last Modified By: ANDRIA Trevino 10/07/23 10:50:46 Radiology Procedures- IR Entry 1 Procedure/Preference IR Epidural Injection Actual Procedure IR EPIDURAL INJECTION Card (SN) Primary Procedure Yes Primary Surgeon BARBARA ARANA PA-C Anesthesia/Sedation Local Type Additional Procedure Times Start 10/07/23 10:29:00 Stop 10/07/23 10:46:00 Specialty Service SN Radiology Procedure EBL 0 mL Last Modified By: ANDRIA Trevino 10/07/23 10:50:54 Radiology Procedure Details - IR Entry 1 Radiology Sedation Case Times Sedation Total Time 0min Radiology - Fluid/Drainage Radiology Contrast Contrast Used? Yes Dose 3 mL Medication OMNIPAQUE 180 20ML 10/PK Y-[address] Radiology Flouroscopy Fluoroscopy Used? Yes Fluoro Dose (mGy) 64.97 Fluoro Time 0.8min Radiology Local Local Used? Yes Local Type: lidocaine 2% Local Dose 4ml Radiology Procedure Site Site/Location L3-L4 Site Condition No complications Dressing Type Bandaids Technologist Notes 10mg depo-medol, 2ml 1% lidocaine and 2ml preservative free NS injectected into epidural space at L3-L4 Last Modified By: ANDRIA Trevino 10/07/23 10:50:38 General Case Data - IR Entry 1 Case Information Room AH IR 16 Case Level IR Level 2 Wound Class None Specialty SN Radiology Procedure ASA Class None Diagnosis Preop Diagnosis right leg pain Postop Same As Preop Yes Postop Diagnosis right leg pain Last Modified By: ANDRIA Trevino 10/07/23 10:18:47 Procedure Case Times- IR Entry 1 Patient In Procedure Patient In OR 10/07/23 10:21:00 Patient Out of OR 10/07/23 10:50:00 Procedure Start/Stop Procedure Start Time 10/07/23 10:29:00 Procedure Stop Time 10/07/23 10:46:00 Last Modified By: ANDRIA Trevino 10/07/23 10:50:45 Immediate Post Procedure Note - IR Entry 1 Immediate Post Yes Findings successful lumbar NELSON Procedure Note displayed for Physician to review Closure Technique Closure Technique Other than Primary Last Modified By: ANDRIA Trevino 10/07/23 10:47:27 Immediate Post Procedure Note - IR Signed By: BARBARA ARANA PA-C 10/07/23 10:46 Allergy Information- IR Entry 1 Allergies Reviewed? Yes Allergies Reviewed Medical Record With Last Modified By: ANDRIA Trevino 10/07/23 10:16:02 Radiology Protocols/Time Out- IR Entry 1 Preprocedure Clinician Verifies Correct patient ID When Clinically Confirmation of correct using name & date Indicated side(s) and site(s), or MRN, Accurate Correct diagnostic and procedure, complete radiology tests Informed Consent, H & P available, Required update immediately blood products, prior to procedure, if implants, devices applicable and/or special equipment available OR/Procedure Room/Bedside Time 10/07/23 10:29:00 Clinician Verifies Correct patient identity including EMR & records using name and date or medical record number, Accurate procedure consent form, Correct patient position, Necessary equipment is available, Anticipated non-routine events with surgical team (case duration, estimated blood loss, patient specific concerns)., [place] patient factors for recovery and management identified with surgical team. When Applicable Confirmation correct Team Members BARBARA ARANA side and site marked, Present for Time Out PA-C, [place] Relevant images and Tech, [place], Credit Counselor results are properly Belinda Moss RN labeled and Conrad appropriately displayed, Alcohol based prep dry, Double verification of sterility indicators complete Instrument Sterility Team Members BARBARA ARANA Verifying Sterility PA-C, [place], [place] Tech Procedure IR Epidural Injection (SN) Last Modified By: ANDRIA Trevino 10/07/23 10:29:49 Skin Prep- IR Entry 1 Procedure IR Epidural Injection (SN) Skin Prep Prep Area Back Side Lower, Bilateral By Carlton [place]o Tech Prep Agents Betadine Solution Hair Removal Method N/A Last Modified By: ANDRIA Trevino 10/07/23 10:17:53 Patient Positioning- IR Entry 1 Procedure IR Epidural Injection Body Position OP Prone (SN) Feet Uncrossed? Yes Pressure Points Yes Checked Last Modified By: ANDRIA Trevino 10/07/23 10:18:03 Radiology Procedure Plan - IR Entry 1 Radiology - Nursing Care Plan Outcome Statement The patient Outcome Statement The patient receives demonstrates knowledge Cont. appropriate of the expected medication(s), safely responses to the administered during the operative/invasive perioperative/invasive procedure., The period., The patient is patient's value system, free from signs and lifestyle, ethnicity, symptoms of injury and culture are caused by extraneous considered, respected, objects (equipment, and incorporated in the instrumentation, perioperative plan of sponges, or sharps). care., The patient is free from signs and symptoms of infection., The patient is free from signs and symptoms of injury related to positioning. Radiology - Action Plan Outcomes Met? Yes Novelty Maker ANDRIA Trevino Completing Procedure Plan Last Modified By: ANDRIA Trevino 10/07/23 10:18:30 Case Comments Finalized By: ANDRIA Trevino Document Signatures Signed By: ANDRIA Trevino 10/07/23 10:51 [id number] Summary of episode note Discharge Instructions Thank you for allowing [facility] to assist you with your healthcare needs. The following is importantdischarge information regarding your hospital visit. Your Care Team ALEXA GRIGGS DO What to do next Scheduled Follow-Up Appointments Appointment Type When With Where Contact Griselda ALANIS 11/13/2023 11:30 AM MIGUEL MYERS MD Neurosurgery [address] [id number] Follow Up Appointments Follow Up with Follow up with primary care provider When The Following Activity and Diet Have Been Ordered for You No qualifying data available. No qualifying data available. The Following Equipment Has Been Ordered for You No qualifying data available. The Following Treatments Have Been Ordered for You Discharge Labs No qualifying data available. Discharge Radiology No qualifying data available. Other Therapies No qualifying data available. Post Acute Orders No qualifying data available. Someone Will Contact You Regarding These Home Health Referrals No home referrals have been ordered for you. No one will call you. Allergies NKA Medications Please ask your primary doctor or pharmacist before taking any other medication not listed, including over the counter drugs, herbal medications, vitamins and or supplements as they may interact withyour home medications. What How Much When Why Instructions Last Dose Unchanged acetaminophen (Tylenol 325 mg oral capsule) 650 Milligram by mouth Every 4 hours as needed for Pain, scale 1-3 Unchanged Al hydroxide/ Mg hydroxide/ simethicone (Maalox) by mouth Every 2 hours as needed for Indigestion Unchanged docusate (Colace 100 mg oral capsule) 1 cap by mouth Two (2) times a day as needed for Constipation Unchanged naproxen (naproxen 250 mg oral tablet) 1 tab(s) by mouth Two (2) times a day Post-operative pain Unchanged tiZANidine (tiZANidine 4 mg oral tablet) 1 tab(s) by mouth Three (3) times a day as needed for Muscle spasm Unchanged tiZANidine (tiZANidine 4 mg oral tablet) 1 tab(s) by mouth Every 8 hours as needed for as needed for muscle spasm Post-operative pain Please take this list to your next doctor s visit. Bring all medications you take, including over the counter medications, herbals and other supplements with you to your doctor s visit. Patients and families are reminded to discard old lists and to update any records with all medication providers or retail pharmacies. Education Materials SUPERIOR Radiology Procedure/Biopsy Discharge Instructions Interventional Radiology [facility] [address] [facility] [address] Today, you had a Epidural injection . Thisprocedure/biopsy was done to help your doctor diagnose and treat the signs and symptoms you have been experiencing. These instructions should be followed after your procedure to reduce the chance of experiencing complications. Please follow the instructions below to reduce the chance of experiencing complications. Diet: Resume your normal diet as tolerated. Drink extra fluids. Activity: Rest for the remainder of the day. You may resume your normal activity tomorrow. You may bathe/shower after 24 hours. Do not soak or submerge site (including swimming or hot tubs) until a scab forms. No heavy lifting, pushing, or straining. Dressing: Check the site for bleeding. Apply pressure to the site if bleeding excessively and call your physician. Change the band aid as needed; it can be removed after 24 hours. Keep the site dry at all times until a scab forms over the site. Pain Control: The puncture site may be sore for 1 to 2 days following the procedure. Hmth-ljs-xqujbla pain medication should be used for pain or discomfort. Please check with the physician who ordered this procedure for you for their specific recommendations. If your pain is not relieved or becomes more severe, notify the physician who sent you for this procedure. If you were sedated for this procedure: Avoid alcoholic beverages for 24 hours after your procedure. Do not drive or operate heavy machinery for 24 hours after your procedure. Do not make any legal decisions for 24 hours after your procedure. Medication: Please resume on . When to seek medical help: Lightheadedness, dizziness, or fainting. Severe pain or swelling. Severe nausea or vomiting. Infection: fever greater than 101 degrees, chills, redness, warmth, swelling, bleeding, or pus frompuncture site. If you experience any of these issues during the first 24 hours, please follow the instruction below: 8:00 am- 5:00 pm call [phone] After 5:00 pm call [phone] After 24 hours, contact the physician who ordered this procedure for you. Obtaining test results: Please make an appointment with your doctor to obtain your test results. They are usually availablewithin 4 to 7 business days. Do not assume everything is normal if you have not heard from your doctor or medical facility. It is important for you to follow up on all of your test results. Special Instructions: Additional Information VACCINATE! IT SAVES LIVES! Members of the community who have not yet received the COVID-19 vaccine and would like to receive it can visit one of [facility] vaccine clinics. There are many vaccine clinic locations within the [facility]. For locations and available times, please visit [email or web address] It is important to note that some COVID mobile vaccine clinics are held outdoors and may be canceled in rainy or stormy conditions. To learn more about pediatric vaccinations (ages 5-11), we invite you to visit the [facility] webpage. [email or web address]/[email or web address] learn more about the COVID-19 vaccine, we invite you to visit the CDC website for a list of frequently asked questions.https://www.cdc.gov/coronavirus/2019-ncov/vaccines/faq.html [employer] Patient Portal Access Instructions: Stay connected with your healthcare team and access your personal medical information anytime with the [employer] Patient Portal. Please follow the directions below to create your [employer] account: 1.Access the email account you provided upon registration to the hospital/physician office.2.Look for an invitation email from [facility].3.Open the email and access the invitation link: AcceptInvitation to [employer].4.Fill in the required trujillo to create your account. To access your account, visit [employer]ish[employer]. Click the blue button labeled Access Patient Portal and then log in with the username and password that you created in the steps above. You will be able to view your test results, lab results, a summary of your visits, upcoming appointments and more. There is also a convenient messaging option where you can send secure messages to your p [employer]. In addition, you will have the ability to download any documents or summaries to your computer and/or send the information securely to a physician. Remember that your healthcare information is confidential, so carefully consider who you will allowto register on the [employer] Patient Portal for access to your information. You can also access the [employer] Patient Portal on the [employer] kirk. Simply click on Patient Portal and then log into your account. If you would like to receive a full copy of your medical records, please contact the [facility] Medical Records Department by calling [phone], Saturday through Saturday between 8 a.m. and 4:30 p.m. HOW TO SAFELY DISPOSE OF PRESCRIPTION MEDICATIONS Please use one of the following methods to safely dispose of your unused medications. 1.Use a drug disposal kit: the drug disposal pouch allows you to safely discard your old and unuseddrugs. Ask your nurse to give you one when you are discharged.2.Visit a local take-back location: Many local pharmacies and police departments have programs that collect old and unwanted prescriptiondrugs. Call your local pharmacy or go to http://[employer].Shopatron/4U8Xr6p to find one close to you.3.Make use of household items: Use cat litter or old coffee grounds to dispose medications if other options arenot available. Mix your drugs with these household products, seal them in an airtight container andthrow it into the garbage. Call [facility]: [phone] to be sure your drugs can be disposed of in this way. Some medicines may require a different approach.4.Never flush your medications down the toilet. IF YOU HAVE BEEN PRESCRIBED AN OPIOID FOR PAIN If you have been prescribed an opioid (such as hydrocodone, oxycodone or morphine), it is critical to understand the possible side effects and risks of opioid pain medications. Even when taken as directed, opioids can have several side effects including: Tolerance, meaning you might need to take more of a medication for the same pain relief. Nausea, vomiting and/or constipation. Sleepiness, dizziness, dry mouth, confusion, depression or itching. Physical dependence, meaning you have withdrawal symptoms when a medication is stopped, can develop within a few days. KNOW YOUR RESPONSIBILITIES It is important to know exactly how much and how often to take the opioid pain medications you are prescribed. Never take opioids in higher amounts or more often than prescribed. Do not combine opioids with alcohol or other drugs that cause drowsiness, such as benzodiazepines, also known as benzos, including diazepam and alprazolam, muscle relaxants or sleep aids. Never sell or share prescription opioids. This is illegal. Store opioids in a secure place and out of reach of others (including children, family, friends and visitors). The last page of this document has been signed and retained as a CHART COPY. Signatures Patient Education Materials Radiology- Procedure/Biopsy 02/17/2020 (CUSTOM) Medication Leaflets My discharge plan and instructions have been reviewed and explained to me and I,AJIT ZHU understand my current condition and have read and understand these discharge instructions. I have receiveda written copy of the plan/instructions. If I have questions, I am aware that I should contact my do ctor. Patient/Advanced Practice Nurse Psychotherapist Signature: Date/Time: Relationship to Patient: Witness Name/Signature: Date/Time: [id number] History and physical note IR PREPROCEDURE H&P UPDATE IF A HISTORY AND PHYSICAL EXAMINATION HAS BEEN COMPLETED PRIOR TO ADMISSION TO THE HOSPITAL, AN UPDATED EXAMINATION MUST BE COMPLETED AND DOCUMENTED WITHIN 24 HOURS AFTER ADMISSION OR REGISTRATION BUT BEFORE A SURGICAL PROCEDURE. I have examined the patient, reviewed the H&P, and there are no changes unless noted below: _ The most recent H&P/Office Note was performed on 09/23/2023 and can be found in the [facility] ([place]). Davy Mayes PA-C Interventional Radiology Pager: [phone] IR dept: [phone] Available on [employer] Digitally Signed by DAVY MAYES PA-C on 10/07/2023 09:15 AM Digitally Signed by CORY CARRINGTON MD on 10/07/2023 09:52 AM [id number] Evaluation + Plan note Future Scheduled Tests Radiology* IR Epidural Injection 09/23/23 [facility] 11-10-2023 Hospital Discharge instructions Patient Education 09/13/2023 19:36:37 Anatomy of a Normal Spine Anatomy of a Normal Spine The spinal column is a stack of bones (vertebrae) that are by soft pads of tissue (disks). In the middle of each of these bones there is a canal that runs top to bottom. Together these canals form a tunnel called the spinal canal. Running through the spinal canal is a long sausage-like bundle of nerves and nerve cells called the spinal cord. These nerve fibers carry signals between the brain and body. The spinal cord is surrounded by the cerebrospinal fluid and protective layers called meninges, just like the brain. The spine has three natural curves: the cervical, the thoracic, and the lumbar. The parts of the spine The spine is made up of the following parts: The vertebrae (not including the sacrum and coccyx) are the 24 bones that connect like puzzle pieces to make up the spine. The lamina of each vertebra forms the back of the spinal canal. A foramen is a small bony opening. This is where a nerve, on each side of the spinal cord, leaves the spinal canal. The transverse process is the wing of bone on either side of each vertebra. The spinous process is the back part of each vertebra you can feel through your skin. A disk lies between each of the vertebrae and acts as a cushion. Two vertebrae with a disk between them [id number] [employer]. [address] [place] [address]. All rights reserved. This information is not intended as a substitute for professional medical care. Always follow yourhealthcare professional's instructions. Follow Up Care 09/13/2023 16:15:10 With:ALEXA GRIGGS DO Address: [address] [place] [phone] When:2-4 days [facility] 11-10-2023 Note Discharge Instructions Thank you for allowing [facility] to assist you with your healthcare needs. The following is importantdischarge information regarding your hospital visit. Diagnosis from Today's Visit Back pain Back pain What to Do Next Instructions from Your Care Team Discharge Return to Work, School, or Sports (Return to Work, School, or Sports) - Ordered -- May return to: work, 09/13/23 19:36:00 EST Post Acute Orders No qualifying data available. You Need to Schedule the Following Appointments Follow Up with ALEXA GRIGGS DO When Within 2-4 days Where: [address] [place] [phone] Allergies NKA Medications Please ask your primary doctor or pharmacist before taking any other medication not listed, including over the counter drugs, herbal medications, vitamins and or supplements as they may interact withyour home medications. What How Much When Why Instructions Last Dose New methylPREDNISolone (Medrol Dosepak 4 mg oral tablet) 1 Packet(s) by mouth Once a day Duration: 6 Days as directed on package labeling Printed Prescription Unchanged acetaminophen (Tylenol 325 mg oral capsule) 650 Milligram by mouth Every 4 hours as needed for Pain, scale 1-3 Unchanged acetaminophen-hydrocodone (Grafton 325- 5 mg oral tablet) 1-2 tab(s) by mouth Every 6 hours as needed for as needed for pain S/P lumbar laminectomy Duration: 7 Days Please take 1 tablet for pain level 4-6 or take 2 tablets for pain level 7-10. Do not exceed 6 tablets/ day Unchanged acetaminophen/ dextromethorphan/ doxylamine (Nyquil Cold and Flu) 5 Milliliter by mouth Every 6 hours as needed for as needed for cold symptoms Unchanged Al hydroxide/ Mg hydroxide/ simethicone (Maalox) by mouth Every 2 hours as needed for Indigestion Unchanged docusate (Colace 100 mg oral capsule) 1 cap by mouth Two (2) times a day as needed for Constipation Unchanged tiZANidine (tiZANidine 4 mg oral tablet) 1 tab(s) by mouth Three (3) times a day as needed for Muscle spasm Please take this list to your next doctor s visit. Bring all medications you take, including over the counter medications, herbals and other supplements with you to your doctor s visit. Patients and families are reminded to discard old lists and to update any records with all medication providers or retail pharmacies. Medication Leaflets methylprednisolone (oral) (METH il pred NIS oh lone) Medrol, Medrol Dosepak, MethylPREDNISolone Dose Pack What is the most important information I should know about methylprednisolone? You should not use this medicine if you have a fungal infection anywhere in your body. What is methylprednisolone? Methylprednisolone is a steroid that prevents the release of substances in the body that cause inflammation. Methylprednisolone is used to treat many different inflammatory conditions such as arthritis, lupus, psoriasis, ulcerative colitis, allergic disorders, gland (endocrine) disorders, and conditions that affect the skin, eyes, lungs, stomach, nervous system, or blood cells. Methylprednisolone may also be used for purposes not listed in this medication guide. What should I discuss with my healthcare provider before taking methylprednisolone? You should not use methylprednisolone if you are allergic to it, or if you have: a fungal infection anywhere in your body. Methylprednisolone can weaken your immune system, making it easier for you to get an infection. Steroids can also worsen an infection you already have, or reactivate an infection you recently had. Tell your doctor about any illness or infection you have had within the past several weeks. To make sure methylprednisolone is safe for you, tell your doctor if you have ever had: a thyroid disorder; herpes infection of the eyes; stomach ulcers, ulcerative colitis, or diverticulitis; depression, mental illness, or psychosis; liver disease (especially cirrhosis); high blood pressure; osteoporosis; a muscle disorder such as myasthenia gravis; or multiple sclerosis. Also tell your doctor if you have diabetes. Steroid medicines may increase the glucose (sugar) levels in your blood or urine. You may also need to adjust the dose of your diabetes medications. It is not known whether this medicine will harm an unborn baby. Tell your doctor if you are or plan to become . It is not known whether methylprednisolone passes into breast milk or if it could affect the nursing baby. Tell your doctor if you are breast-feeding. How should I take methylprednisolone? Follow all directions on your prescription label. Your doctor may occasionally change your dose. Donot use this medicine in larger or smaller amounts or for longer than recommended. Methylprednisolone is sometimes taken every other day. Follow your doctor's dosing instructions very carefully. Your dose needs may change if you have unusual stress such as a serious illness, fever or infection, or if you have surgery or a medical emergency. Tell your doctor about any such situation that affects you. This medicine can cause unusual results with certain medical tests. Tell any doctor who treats you that you are using methylprednisolone. You should not stop using methylprednisolone suddenly. Follow your doctor's instructions about tapering your dose. Wear a medical alert tag or carry an ID card stating that you take methylprednisolone. Any medical care provider who treats you should know that you take steroid medication. If you need surgery, tell the surgeon ahead of time that you are using methylprednisolone. You may need to stop using the medicine for a short time. Store at room temperature away from moisture and heat. What happens if I miss a dose? Call your doctor for instructions if you miss a dose of methylprednisolone. What happens if I overdose? Seek emergency medical attention or call the [employer] Help line at . An overdose of methylprednisolone is not expected to produce life threatening symptoms. However, exterminator termite use of high steroid doses can lead to symptoms such as thinning skin, easy bruising, changesin the shape or location of body fat (especially in your face, neck, back, and waist), increased acne or facial hair, menstrual problems, impotence, or loss of interest in sex. What should I avoid while taking methylprednisolone? Avoid being near people who are sick or have infections. Call your doctor for preventive treatment if you are exposed to chicken pox or measles. These conditions can be serious or even fatal in people who are using steroid medication. Do not receive a 'live' vaccine while using methylprednisolone. The vaccine may not work as well during this time, and may not fully protect you from disease. Live vaccines include measles, mumps, rubella (MMR), polio, rotavirus, typhoid, yellow fever, varicella (chickenpox), zoster (shingles), andnasal flu (influenza) vaccine. What are the possible side effects of methylprednisolone? Get emergency medical help if you have signs of an allergic reaction: hives; difficult breathing; swelling of your face, lips, tongue, or throat. Call your doctor at once if you have: shortness of breath (even with mild exertion), swelling, rapid weight gain; bruising, thinning skin, or any wound that will not heal; blurred vision, tunnel vision, eye pain, or seeing halos around lights; severe depression, changes in personality, unusual thoughts or behavior; new or unusual pain in an arm or leg or in your back; bloody or tarry stools, coughing up blood or vomit that looks like coffee grounds; seizure (convulsions); or low potassium--leg cramps, constipation, irregular heartbeats, fluttering in your chest, increased thirst or urination, numbness or tingling. Steroids can affect growth in children. Tell your doctor if your child is not growing at a normal rate while using this medicine. Common side effects may include: fluid retention (swelling in your hands or ankles); dizziness, spinning sensation; changes in your menstrual periods; headache; mild muscle pain or weakness; or stomach discomfort, bloating. This is not a complete list of side effects and others may occur. Call your doctor for medical advice about side effects. You may report side effects to FDA at 6-906-NXZ-2991. What other drugs will affect methylprednisolone? Other drugs may interact with methylprednisolone, including prescription and eaco-yiu-anxfqek medicines, vitamins, and herbal products. Tell each of your health care providers about all medicines youuse now and any medicine you start or stop using. Where can I get more information? Your pharmacist can provide more information about methylprednisolone. Remember, keep this and all other medicines out of the reach of children, never share your medicines with others, and use this medication only for the indication prescribed. Every effort has been made to ensure that the information provided by [employer]') is accurate, up-to-date, and complete, but no guarantee is made to that effect. Drug information contained herein may be time sensitive. [employer] information has been compiled for use by healthcare practitioners and consumers in the [place] and therefore [employer] does not warrant that uses outside of the [place] are appropriate, unless specifically indicated otherwise. [employer] drug information does not endorse drugs, diagnose patients or recommend therapy. [employer] drug information isan informational resource designed to assist licensed healthcare practitioners in caring for their p atients and/or to serve consumers viewing this service as a supplement to, and not a substitute for, the expertise, skill, knowledge and judgment of healthcare practitioners. The absence of a warningfor a given drug or drug combination in no way should be construed to indicate that the drug or drug combination is safe, effective or appropriate for any given patient. [employer] does not assume any responsibility for any aspect of healthcare administered with the aid of information [employer] provides. The information contained herein is not intended to cover all possible uses, directions, precautions, warnings, drug interactions, allergic reactions, or adverse effects. If you have questions about the drugs you are taking, check with your doctor, nurse or pharmacist. Copyright 2940-7666 [employer] Version: 9.01. Revision Date: 07/03/2017. Education Materials Anatomy of a Normal Spine The spinal column is a stack of bones (vertebrae) that are by soft pads of tissue (disks). In the middle of each of these bones there is a canal that runs top to bottom. Together these canals form a tunnel called the spinal canal. Running through the spinal canal is a long sausage-like bundle of nerves and nerve cells called the spinal cord. These nerve fibers carry signals between the brain and body. The spinal cord is surrounded by the cerebrospinal fluid and protective layers called meninges, just like the brain. The spine has three natural curves: the cervical, the thoracic, and the lumbar. The parts of the spine The spine is made up of the following parts: The vertebrae (not including the sacrum and coccyx) are the 24 bones that connect like puzzle pieces to make up the spine. The lamina of each vertebra forms the back of the spinal canal. A foramen is a small bony opening. This is where a nerve, on each side of the spinal cord, leaves the spinal canal. The transverse process is the wing of bone on either side of each vertebra. The spinous process is the back part of each vertebra you can feel through your skin. A disk lies between each of the vertebrae and acts as a cushion. Two vertebrae with a disk between them [id number] [employer]. [address] [place] [address]. All rights reserved. This information is not intended as a substitute for professional medical care. Always follow yourhealthcare professional's instructions. Additional Information VACCINATE! IT SAVES LIVES! Members of the community who have not yet received the COVID-19 vaccine and would like to receive it can visit one of [facility] vaccine clinics. There are many vaccine clinic locations within the [facility]. For locations and available times, please visit [email or web address]/. It is important to note that some COVID mobile vaccine clinics are held outdoors and may be canceled in rainy or stormy conditions. To learn more about pediatric vaccinations (ages 5-11), we invite you to visit the [facility] webpage. [email or web address]/[email or web address] [email or web address].htmlTo learn more about the COVID-19 vaccine, we invite you to visit the CDC website for a list of frequently asked questions. https://www.cdc.gov/coronavirus/2019-ncov/vaccines/faq.html [facility] [employer] Patient Portal Access Instructions: Stay connected with your healthcare team and access your personal medical information anytime with the [facility] [employer] Patient Portal. If you would like a full copy of your medical records please contact the [facility] Medical Records Department Saturday through Saturday between 8a.m. and 4:30p.m. Please follow the directions below to access the portal: 1.Access the email account you provided upon registration to the [facility].2.Look for an invitation email from [facility].3.Open the email and access the invitation link: Accept Invitation to [employer]4.Fill in the required trujillo to create your account. Sign into [email or web address] with your username and password that you created in the above steps to stay up to date. You can then view a summary of results, a summary of your visits, and the ability to download your summaries to your computer or send the information securely to a physician. Remember that your healthcare information is confidential, so carefully consider who you will allow to register on the [employer] Patient Portal for access to your information. You can also access the [employer] Patient Portal on the Girl Meets Dress. Simply click on Health Records under [employer] and then click on the [employer] logo. HOW TO SAFELY DISPOSE OF PRESCRIPTION MEDICATIONS Please use one of the following methods to safely dispose of your unused medications. 1.Use a drug disposal kit: the drug disposal pouch allows you to safely discard your old and unuseddrugs. Ask your nurse to give you one when you are discharged.2.Visit a local take-back location: Many local pharmacies and police departments have programs that collect old and unwanted prescriptiondrugs. Call your local pharmacy or go to http://bit.ly/9L1Kd5c to find one close to you.3.Make use of household items: Use cat litter or old coffee grounds to dispose medications if other options arenot available. Mix your drugs with these household products, seal them in an airtight container andthrow it into the garbage. Call [facility]: [phone] to be sure your drugs can be disposed of in this way. Some medicines may require a different approach.4.Never flush your medications down the toilet. IF YOU HAVE BEEN PRESCRIBED AN OPIOIDS FOR PAIN If you have been prescribed an opioid (such as hydrocodone, oxycodone or morphine), it is critical to understand the possible side effects and risks of opioid pain medications. Even when taken as directed, opioids can have several side effects including: Tolerance, meaning you might need to take more of a medication for the same pain relief. Nausea, vomiting and/or constipation. Sleepiness, dizziness, dry mouth, confusion, depression or itching. Physical dependence, meaning you have withdrawal symptoms when a medication is stopped ? this can develop within a few days. KNOW YOUR RESPONSIBILITIES It is important to know exactly how much and how often to take the opioid pain medications you are prescribed. Never take opioids in higher amounts or more often than prescribed. Do not combine opioids with alcohol or other drugs that cause drowsiness, such as benzodiazepines, also known as benzos,including diazepam and alprazolam, muscle relaxants or sleep aids. Never sell or share prescriptionopioids. This is illegal. Store opioids in a secure place and out of reach of others (including children, family, friends and visitors). The last page(s) of this document has been signed and retained as a CHART COPY Signatures Patient Education Materials Anatomy of a Normal Spine Medication Leaflets methylprednisolone (oral) My discharge plan and instructions have been reviewed and explained to me and I,AJIT ZHU understand my current condition and have read and understand these discharge instructions. I have receiveda written copy of the plan/instructions. If I have questions, I am aware that I should contact my do ctor. 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 Multiplanar reformatted images are provided for review. Automated exposure control, iterative reconstruction, and/or weight based adjustment of the mA/kV was utilized to reduce the radiation dose to as low as reasonably achievable. COMPARISON: MR lumbar spine 06/13/2023, x-ray lumbar spine HISTORY: ORDERING SYSTEM PROVIDED HISTORY: Reason for Exam: post-op pain FINDINGS: There are 4 lumbar type vertebral bodies designated L1 through L4 with presumed sacralization of L5. Minimal retrolisthesis of L2 on L3. The lumbar spine alignment is otherwise within normal limits. Posterior laminectomy changes are present at L4-L5. No acute abnormality identified. Mild circumferential disc bulge at L2-L3 without significant spinal canal stenosis or neural foraminal narrowing. Mild asymmetric disc bulge at L3-L4 without spinal canal stenosis visualized status post laminectomy changes. No neural foraminal narrowing. Mild posterior disc bulge at L4-L5 without spinal canal stenosis or right-sided neural foraminal narrowing. Mild left neural foraminal narrowing. Soft tissue air locules and edema likely representing postsurgical changes. No acute abnormality identified within the limited views of the abdomen. IMPRESSION: No acute findings. Expected postsurgical changes of the subcutaneous tissues overlying the lower lumbar spine, with soft tissue stranding and locules of air. No drainable fluid collection. Mild degenerative changes as described above. I have personally reviewed the images of this examination and agree with the resident's findings and interpretation. Interpreted by: Sky Morataya Preliminary Report By: Danuta Sharma Electronically signed By Sky Morataya Dictated Date: 09/13/2023 6:59:09 PM Prelim Date: 09/13/2023 7:07:20 PM Sign Date: 09/13/2023 7:15:23 PM Ordering Provider: [facility]11-10-2023 Neurological surgery Progress note Date of Service 09/13/2023 Late entry: Received phone call from patient's at approximately 0630 with voiced concerns that patient c/ocold sweats and shakiness in his legs. She provides symptoms started last night and have persisted. Patient unable to rest/sleep due to not being able to get comfortable. Legs feel shaky when ambulating. She states his incision site looks okay and has no notable swelling, redness. Tells me there is no drainage and no bleeding Silver alginate dressing remains intact and is clean/dry. She wasnot certain if he had increased pain, but states that was not something he had mentioned to her, just that he didn't feel right. She said they do not have a thermometer to check his temperature, but didn't think he was fevered. Taking Grafton and tizanidine as prescribed (PRN), last dose Grafton [id number], took 2 tablets. Per , patient abiding by activity restrictions, and does not feel he overdid anything. Pre-op symptoms (LE pain, paresthesias) still seem to be better. Advised patient be brought to the emergency department to be further evaluated with lab work, vitals and possibly imaging. was agreeable to bring him in. Discussed with Dr Cha during morning rounds, and was made aware of the above. Agreed patient to beseen either by PCP if able to get in today for an appointment, stat care or ED. I re-contacted , and provided Dr Cha agreed with my initial recommendations, unless patient could be evaluated today by PCP. Given likely would need lab work, diagnostics then may be best to come to ED to have all work up done there. She agreed. called me again around 9am, and stated patient/ has provided additional information to her in that he is now having some pain in the right LE. Again I advised patient be brought to the EDfor evaluation of his symptoms. She verbalized understanding. Digitally Signed by RAY BAKER on 09/13/2023 05:47 PM [id number] Discharge summary Date of Service 09/11/2023 Discharge Diagnosis Lumbar foraminal stenosis (M48.061 - ICD-10-CM) S/P lumbar laminectomy (Z98.890 - ICD-10-CM) Ordered: Grafton 325- 5 mg oral tablet; 1-2 tab(s), Oral, q6hr, PRN as needed for pain, Please take 1 tablet for pain level 4-6 or take 2 tablets for pain level 7-10. Do not exceed 6 tablets/day, X 7 day(s), # 42 tab(s), 0 Refill(s), Pharmacy: [id number], S/P lumbar laminectomy, 1... Additional Orders: Ordered: Colace 100 mg oral capsule,Dose : 100 mg = 1 cap(s), Oral, BID, PRN Constipation, 0 Refill(s) Other status: Discharge,09/11/23 8:48:00 EST, Discharged to: Home(Complete) Ordered: Discontinue Order,09/11/23 8:45:00 EST, Once, Please d/c KELVIN drain, 09/11/23 8:45:00 EST Ordered: Maalox,Oral, q2h, PRN Indigestion, 0 Refill(s) Ordered: Tylenol 325 mg oral capsule,Dose : 650 mg =, Oral, q4h, PRN Pain, scale 1-3, 0 Refill(s) Ordered: tiZANidine 4 mg oral tablet,Dose : 4 mg = 1 tab(s), Oral, TID, PRN Muscle spasm, # 90 tab(s), 0 Refill(s), Pharmacy: [id number], 172.7, cm, 09/10/23 12:46:00 EST, Height, kg, 09/10/23 12:46:00 EST, Dosing Weight End of Orders Hospital Course This is a 38-year-old male who has followed in outpatient neurosurgery clinic with Dr. Cha for complaints of back pain radiating to bilateral legs and S1 distribution with associated paresthesias. He had an MRI of the lumbar spine on 06/13/2023 which demonstrated a broad-based disc bulge at L5-S1 mildly displacing the bilateral S1 nerve roots, with left side being affected more the right. Patienthad noted symptoms for almost 2 years. He failed conservative management with physical therapy and injections via pain management. Because of this, Dr. Cha offered him surgery for treatment and patient elected to proceed. Patient came to [facility] same-day [facility] unit on 09/10/2023 and underwent an L5-S1 laminectomy, discectomy, and foraminotomies by Dr. Cha. Please see Dr. Almaraz operative note for full details regarding surgery performed. A KELVIN drain was placed intraoperatively. Postoperatively, patient was recovered in the PACU and then transferred to the neurosurgical stepdown unit for further observation and care. This morning, patient is POD #1. He is resting in bed this morning. Notes that he has already noticed significant improvement in his back pain though he is complaining of mild incisional pain. He also notes that the constant pain and paresthesias he experiences in his legs and feet prior to surgeryhave resolved postoperatively. He is very pleased with surgical result so far. He feels that his incisional pain is well controlled on prescribed pain medication regimen with Grafton and tizanidine. He has been up and ambulating throughout the room and in the halls. He has been tolerating p.o. intake without nausea or vomiting. Voiding without difficulty. He denies any new/acute paresthesias or weakness. Due to minimal output overnight, KELVIN drain has been ordered for removal by Dr. Cha. Dr. Cha has cleared patient for discharge from the hospital inpatient is in agreement with this. Discharge instructions and restrictions were provided to the patient and reviewed at the bedside. A2-week postoperative visit has been arranged for the patient and placed on his discharge paperwork.OARRS report reviewed. Patient prescribed a short course of Grafton and tizanidine for postoperative discomfort. He was also provided with an off work slip for the next [address] Mcintosh provide further instructions at his postoperative visit. Patient was instructed to notify Dr. Cha's office with any further questions or concerns prior to scheduled postop visit. Patient discharged home in stable. Allergies NKA Procedures Operation Lumbar Laminectomy 1 Level, LUMBAR 5 THROUGH SACRAL 1 LAMINECTOMY, DISCECTOMY AND FORAMINOTOMY Surgeon(s) MIGUEL CHA MD (Primary Surgeon) [1] Physical Exam Vitals and Measurements T: 36.8 C (Oral) TMIN: 36.5 C (Oral) TMAX: 37.0 C (Oral) HR: 68 RR: 16 BP: 106/59 SpO2: 96% HT: 172.7 cm WT: 98.0 kg BMI: 32.86 Weight Dosing Weight: 98 kg (09/10/23) Dosing Weight: 98 kg (09/10/23) Vital signs have been reviewed and have remained stable overnight. He is alert and oriented x4. Following simple commands without difficulty. His speech is clear. Respirations are easy and unlabored.Lungs are clear throughout. Regular heart rate and rhythm, S1-S2. Abdomen is soft, nondistended. BSP x4. Voiding without difficulty. He is moving all extremities without difficulty. He has strong and equal motor strength throughout his lower extremities, including dorsiflexion and plantarflexion bilaterally. He can lift both legs off of the bed without difficulty. His lumbar surgical incision is covered in a silver impregnated dressing. This is clean, dry, and intact on exam. No fluid collection felt surrounding. No erythema or drainage noted. Code Status Full Code Admission Date 09/10/2023 Discharge Date 09/11/2023 Patient Instructions No aspirin, multivitamins, or NSAIDs (no Aleve, Motrin, Ibuprofen, Naproxen, etc.) until cleared byneurosurgeon. No lifting more than 10 pounds. Avoid bending/twisting at the waist. No driving for at least 2 weeks; No driving while taking narcotics or muscle relaxants. Keep surgical incision clean and dry at all times until healed (about 2 weeks postoperatively). Maintain surgical dressing over incision for 7 days postoperatively as it is embedded with an antibiotic. After 1 week postop, remove dressing and begin to change daily using dry sterile gauze for about 7-10 days. May leave open to air once fulled healed. Okay to shower, but cover surgical incision with watertight dressing until healed (about 2 weeks postoperatively) No soaking incision site for 6 weeks postoperatively (No tub baths, hot tubs, saunas, swimming, etc.) If surgical incision site becomes red, swollen, painful, opens and/or drainage around site or if you develop a fever- Contact neurosurgery office immediately. Medications New Prescription acetaminophen (Tylenol 325 mg oral capsule)650 Milligram by mouth every 4 hours as needed Pain, scale 1-3. acetaminophen-hydrocodone (Grafton 325- 5 mg oral tablet)1-2 tab(s) by mouth every 6 hours as needed as needed for pain for 7 Days. Please take 1 tablet for pain level 4-6 or take 2 tablets for pain level 7-10. Do not exceed 6 tablets/day. Refills: 0. Al hydroxide/Mg hydroxide/simethicone (Maalox)by mouth every 2 hours as needed Indigestion. docusate (Colace 100 mg oral capsule)1 cap by mouth two (2) times a day as needed Constipation. tiZANidine (tiZANidine 4 mg oral tablet)1 tab(s) by mouth three (3) times a day as needed Muscle spasm. Refills: 0. Unchanged acetaminophen/dextromethorphan/doxylamine (Nyquil Cold and Flu)5 Milliliter by mouth every 6 hours as needed as needed for cold symptoms. Discontinued mupirocin topical (mupirocin 2% topical ointment)1 application Topical two (2) times a day. Bilateral intranasal application twice daily for 5 days prior to surgery &/or as many days leading up to surgery as possible due to surgical urgency/scheduling. Send to patient's preferred pharmacy.. Refills: 0. Follow Up Follow Up with MIGUEL CHA MD, Neurosurgery When 09/23/2023 02:15 PM EST Where: [address] [facility] [address] [facility] [place] [address]- [phone] Discharge Diet Resume pre-hospitalization diet Discharge Activity See above restrictions Condition on Discharge Stable Discharge Disposition Home Information Provided To Patient [1] Operative Report Note; MIGUEL CHA MD 09/10/2023 10:47 EST Digitally Signed by CHRIS COELHO on 09/11/2023 12:36 PM Digitally Signed by MIGUEL CHA MD on 09/11/2023 01:16 PM [id number] Discharge instructions Patient Education 09/11/2023 09:12:01 Laminectomy, Care After Laminectomy, Care After This sheet gives you information about how to care for yourself after your procedure. Your health care provider may also give you more specific instructions. If you have problems or questions, contact your health care provider. What can I expect after the procedure? After the procedure, it is common to have: Some pain around your incision area. Muscle tightening (spasms) across the back. Follow these instructions at home: Incision care Follow instructions from your health care provider about how to take care of your incision area. Make sure you: ?Wash your hands with soap and water before and after you apply medicine to the area or change yourbandage (dressing). If soap and water are not available, use hand telegraph printer mechanic. ?Change your dressing as told by your health care provider. ?Leave stitches (sutures), skin glue, or adhesive strips in place. These skin closures may need to stay in place for 2 weeks or longer. If adhesive strip edges start to loosen and curl up, you may trim the loose edges. Do not remove adhesive strips completely unless your health care provider tells you to do that. Check your incision area every day for signs of infection. Check for: ?More redness, swelling, or pain. ?More fluid or blood. ?Warmth. ?Pus or a bad smell. Medicines Take qpiv-gvp-vxwwika and prescription medicines only as told by your health care provider. If you were prescribed an antibiotic medicine, use it as told by your health care provider. Do not stop using the antibiotic even if you start to feel better. Bathing Do not take baths, swim, or use a hot tub for 2 weeks, or until your incision has healed completely. If your health care provider approves, you may take showers after your dressing has been removed. Activity Return to your normal activities as told by your health care provider. Ask your health care provider what activities are safe for you. Avoid bending or twisting at your waist. Always bend at your knees. Do not sit for more than 20 30 minutes at a time. Lie down or walk between periods of sitting. Do not lift anything that is heavier than 10 lb (4.5 kg) or the limit that your health care provider tells you, until he or she says that it is safe. Do not drive for 2 weeks after your procedure or for as long as your health care provider tells you. Do not drive or use heavy machinery while taking prescription pain medicine. General instructions To prevent or treat constipation while you are taking prescription pain medicine, your health care provider may recommend that you: ?Drink enough fluid to keep your urine clear or pale yellow. ?Take wosh-jlo-syztdmk or prescription medicines. ?Eat foods that are high in fiber, such as fresh fruits and vegetables, whole grains, and beans. ?Limit foods that are high in fat and processed sugars, such as fried and sweet foods. Do breathing exercises as told. Keep all follow-up visits as told by your health care provider. This is important. Contact a health care provider if: You have more redness, swelling, or pain around your incision area. Your incision feels warm to the touch. You are not able to return to activities or do exercises as told by your health care provider. Get help right away if: You have: ?More fluid or blood coming from your incision area. ?Pus or a bad smell coming from your incision area. ?Chills or a fever. ?Episodes of dizziness or fainting while standing. You develop a rash. You develop shortness of breath or you have difficulty breathing. You cannot control when you urinate or have a bowel movement. You become weak. You are not able to use your legs. Summary After the procedure, it is common to have some pain around your incision area. You may also have muscle tightening (spasms) across the back. Follow instructions from your health care provider about how to care for your incision. Do not lift anything that is heavier than 10 lb (4.5 kg) or the limit that your health care provider tells you, until he or she says that it is safe. Contact your health care provider if you have more redness, swelling, or pain around your incision area or if your incision feels warm to the touch. These can be signs of infection. This information is not intended to replace advice given to you by your health care provider. Make sure you discuss any questions you have with your health care provider. Document Released: 05/10/2006 Document Revised: 10/03/2018 Document Reviewed: 04/07/2017 [employer] Patient Education 2020 [employer]. Follow Up Care 08/13/2023 07:17:12 With:MIGUEL CHA MD, Neurosurgery Address: [address] [place] [address] [address] [place] [address]- [phone] When:09/23/2023 14:15:00 [facility] 11-08-2023 Note Discharge Instructions Thank you for allowing [facility] to assist you with your healthcare needs. The following is importantdischarge information regarding your hospital visit. Your Care Team ALEXA GRIGGS DO Your Diagnosis S/P lumbar laminectomy What to do next Instructions From Your Doctor No aspirin, multivitamins, or NSAIDs (no Aleve, Motrin, Ibuprofen, Naproxen, etc.) until cleared byneurosurgeon. No lifting more than 10 pounds. Avoid bending/twisting at the waist. No driving for at least 2 weeks; No driving while taking narcotics or muscle relaxants. Keep surgical incision clean and dry at all times until healed (about 2 weeks postoperatively). Maintain surgical dressing over incision for 7 days postoperatively as it is embedded with an antibiotic. After 1 week postop, remove dressing and begin to change daily using dry sterile gauze for about 7-10 days. May leave open to air once fulled healed. Okay to shower, but cover surgical incision with watertight dressing until healed (about 2 weeks postoperatively) No soaking incision site for 6 weeks postoperatively (No tub baths, hot tubs, saunas, swimming, etc.) If surgical incision site becomes red, swollen, painful, opens and/or drainage around site or if you develop a fever- Contact neurosurgery office immediately. Scheduled Follow-Up Appointments Appointment Type When With Where Contact InformationNS Post Op 09/23/2023 02:15 PM EST MIGUEL CHA MD Neurosurgery [address] [id number] Follow Up Appointments Follow Up with MIGUEL CHA MD, Neurosurgery When 09/23/2023 02:15 PM EST Where: [address] [facility] [address] [place] [address]- [phone] The Following Activity and Diet Have Been Ordered for You No qualifying data available. No qualifying data available. The Following Equipment Has Been Ordered for You No qualifying data available. The Following Treatments Have Been Ordered for You Discharge Labs No qualifying data available. Discharge Radiology No qualifying data available. Other Therapies No qualifying data available. Post Acute Orders No qualifying data available. Someone Will Contact You Regarding These Home Health Referrals No home referrals have been ordered for you. No one will call you. Allergies NKA Medications Please ask your primary doctor or pharmacist before taking any other medication not listed, including over the counter drugs, herbal medications, vitamins and or supplements as they may interact withyour home medications. What How Much When Why Instructions Last Dose New acetaminophen (Tylenol 325 mg oral capsule) 650 Milligram by mouth Every 4 hours as needed for Pain, scale 1-3 New acetaminophen-hydrocodone (Grafton 325- 5 mg oral tablet) 1-2 tab(s) by mouth Every 6 hours as needed for as needed for pain S/P lumbar laminectomy Duration: 7 Days Please take 1 tablet for pain level 4-6 or take 2 tablets for pain level 7-10. Do not exceed 6 tablets/ day Pickup at [id number] New Al hydroxide/ Mg hydroxide/ simethicone (Maalox) by mouth Every 2 hours as needed for Indigestion New docusate (Colace 100 mg oral capsule) 1 cap by mouth Two (2) times a day as needed for Constipation New tiZANidine (tiZANidine 4 mg oral tablet) 1 tab(s) by mouth Three (3) times a day as needed for Muscle spasm Pickup at [id number] Unchanged acetaminophen/ dextromethorphan/ doxylamine (Nyquil Cold and Flu) 5 Milliliter by mouth Every 6 hours as needed for as needed for cold symptoms Pharmacy Information [id number]: [address] [place], [place] [phone] What How Much When Comments Stop Taking mupirocin topical (mupirocin 2% topical ointment) 1 application Topical Two (2) times a day Bilateral intranasal application twice daily for 5 days prior to surgery &/ or as many days leading up to surgery as possible due to surgical urgency/ scheduling. Send to patient's preferred pharmacy. Please take this list to your next doctor s visit. Bring all medications you take, including over the counter medications, herbals and other supplements with you to your doctor s visit. Patients and families are reminded to discard old lists and to update any records with all medication providers or retail pharmacies. Education Materials Laminectomy, Care After This sheet gives you information about how to care for yourself after your procedure. Your health care provider may also give you more specific instructions. If you have problems or questions, contact your health care provider. What can I expect after the procedure? After the procedure, it is common to have: Some pain around your incision area. Muscle tightening (spasms) across the back. Follow these instructions at home: Incision care Follow instructions from your health care provider about how to take care of your incision area. Make sure you: ? Wash your hands with soap and water before and after you apply medicine to the area or change your bandage (dressing). If soap and water are not available, use hand telegraph printer mechanic. ? Change your dressing as told by your health care provider. ? Leave stitches (sutures), skin glue, or adhesive strips in place. These skin closures may need to stay in place for 2 weeks or longer. If adhesive strip edges start to loosen and curl up, you may trim the loose edges. Do not remove adhesive strips completely unless your health care provider tells you to do that. Check your incision area every day for signs of infection. Check for: ? More redness, swelling, or pain. ? More fluid or blood. ? Warmth. ? Pus or a bad smell. Medicines Take rkem-pes-qfkrxhi and prescription medicines only as told by your health care provider. If you were prescribed an antibiotic medicine, use it as told by your health care provider. Do not stop using the antibiotic even if you start to feel better. Bathing Do not take baths, swim, or use a hot tub for 2 weeks, or until your incision has healed completely. If your health care provider approves, you may take showers after your dressing has been removed. Activity Return to your normal activities as told by your health care provider. Ask your health care provider what activities are safe for you. Avoid bending or twisting at your waist. Always bend at your knees. Do not sit for more than 20 30 minutes at a time. Lie down or walk between periods of sitting. Do not lift anything that is heavier than 10 lb (4.5 kg) or the limit that your health care provider tells you, until he or she says that it is safe. Do not drive for 2 weeks after your procedure or for as long as your health care provider tells you. Do not drive or use heavy machinery while taking prescription pain medicine. General instructions To prevent or treat constipation while you are taking prescription pain medicine, your health care provider may recommend that you: ? Drink enough fluid to keep your urine clear or pale yellow. ? Take omrq-adt-sqaarwb or prescription medicines. ? Eat foods that are high in fiber, such as fresh fruits and vegetables, whole grains, and beans. ? Limit foods that are high in fat and processed sugars, such as fried and sweet foods. Do breathing exercises as told. Keep all follow-up visits as told by your health care provider. This is important. Contact a health care provider if: You have more redness, swelling, or pain around your incision area. Your incision feels warm to the touch. You are not able to return to activities or do exercises as told by your health care provider. Get help right away if: You have: ? More fluid or blood coming from your incision area. ? Pus or a bad smell coming from your incision area. ? Chills or a fever. ? Episodes of dizziness or fainting while standing. You develop a rash. You develop shortness of breath or you have difficulty breathing. You cannot control when you urinate or have a bowel movement. You become weak. You are not able to use your legs. Summary After the procedure, it is common to have some pain around your incision area. You may also have muscle tightening (spasms) across the back. Follow instructions from your health care provider about how to care for your incision. Do not lift anything that is heavier than 10 lb (4.5 kg) or the limit that your health care provider tells you, until he or she says that it is safe. Contact your health care provider if you have more redness, swelling, or pain around your incision area or if your incision feels warm to the touch. These can be signs of infection. This information is not intended to replace advice given to you by your health care provider. Make sure you discuss any questions you have with your health care provider. Document Released: 05/10/2006 Document Revised: 10/03/2018 Document Reviewed: 04/07/2017 [employer] Patient Education 2020 [employer] Additional Information VACCINATE! IT SAVES LIVES! Members of the community who have not yet received the COVID-19 vaccine and would like to receive it can visit one of [facility] vaccine clinics. There are many vaccine clinic locations within the [facility]. For locations and available times, please visit https://[email or web address].[place].gov/. It is important to note that some COVID mobile vaccine clinics are held outdoors and may be canceled in rainy or stormy conditions. To learn more about pediatric vaccinations (ages 5-11), we invite you to visit the [facility] webpage. [email or web address]/[email or web address] [email or web address] learn more about the COVID-19 vaccine, we invite you to visit the CDC website for a list of frequently asked questions.https://www.cdc.gov/coronavirus/2019-ncov/vaccines/faq.html [facility] Patient Portal Access Instructions: Stay connected with your healthcare team and access your personal medical information anytime with the [facility] Patient Portal. Please follow the directions below to create your [facility] account: 1.Access the email account you provided upon registration to the hospital/physician office.2.Look for an invitation email from [facility].3.Open the email and access the invitation link: AcceptInvitation to [facility].4.Fill in the required trujillo to create your account. To access your account, visit [email or web address]. Click the blue button labeled Access Patient Portal and then log in with the username and password that you created in the steps above. You will be able to view your test results, lab results, a summary of your visits, upcoming appointments and more. There is also a convenient messaging option where you can send secure messages to your p rovider. In addition, you will have the ability to download any documents or summaries to your computer and/or send the information securely to a physician. Remember that your healthcare information is confidential, so carefully consider who you will allowto register on the [facility] [employer] Patient Portal for access to your information. You can also access the [facility] [employer] Patient Portal on the [facility] kirk. Simply click on Patient Portal and then log into your account. If you would like to receive a full copy of your medical records, please contact the [facility] Medical Records Department by calling [phone], Saturday through Saturday between 8 a.m. and 4:30 p.m. HOW TO SAFELY DISPOSE OF PRESCRIPTION MEDICATIONS Please use one of the following methods to safely dispose of your unused medications. 1.Use a drug disposal kit: the drug disposal pouch allows you to safely discard your old and unuseddrugs. Ask your nurse to give you one when you are discharged.2.Visit a local take-back location: Many local pharmacies and police departments have programs that collect old and unwanted prescriptiondrugs. Call your local pharmacy or go to http://[employer].Shopatron/8B1Wg6k to find one close to you.3.Make use of household items: Use cat litter or old coffee grounds to dispose medications if other options arenot available. Mix your drugs with these household products, seal them in an airtight container andthrow it into the garbage. Call [facility]: [phone] to be sure your drugs can be disposed of in this way. Some medicines may require a different approach.4.Never flush your medications down the toilet. IF YOU HAVE BEEN PRESCRIBED AN OPIOID FOR PAIN If you have been prescribed an opioid (such as hydrocodone, oxycodone or morphine), it is critical to understand the possible side effects and risks of opioid pain medications. Even when taken as directed, opioids can have several side effects including: Tolerance, meaning you might need to take more of a medication for the same pain relief. Nausea, vomiting and/or constipation. Sleepiness, dizziness, dry mouth, confusion, depression or itching. Physical dependence, meaning you have withdrawal symptoms when a medication is stopped, can develop within a few days. KNOW YOUR RESPONSIBILITIES It is important to know exactly how much and how often to take the opioid pain medications you are prescribed. Never take opioids in higher amounts or more often than prescribed. Do not combine opioids with alcohol or other drugs that cause drowsiness, such as benzodiazepines, also known as benzos, including diazepam and alprazolam, muscle relaxants or sleep aids. Never sell or share prescription opioids. This is illegal. Store opioids in a secure place and out of reach of others (including children, family, friends and visitors). The last page of this document has been signed and retained as a CHART COPY. Signatures Patient Education Materials Laminectomy, Care After Medication Leaflets My discharge plan and instructions have been reviewed and explained to me and I,AJIT ZHU understand my current condition and have read and understand these discharge instructions. I have receiveda written copy of the plan/instructions. If I have questions, I am aware that I should contact my do ctor. 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 Patient location: PACU. Assessment Postanesthesia assessment Vitals: Vital signs from flowsheet : Vital Signs 09/10/2023 11:07 EST Heart Rate Monitored 82 bpm Respiratory Rate 18 br/min Systolic Blood Pressure Non-Invasive 121 mmHg Diastolic Blood Pressure Non-Invasive 71 mmHg Mean Arterial Pressure (NBP) 86 mmHg 09/10/2023 10:52 EST Temperature Temporal Artery 36.7 DegC Heart Rate Monitored 85 bpm Respiratory Rate 22 br/min HI Systolic Blood Pressure Non-Invasive 106 mmHg Diastolic Blood Pressure Non-Invasive 71 mmHg Mean Arterial Pressure (NBP) 82 mmHg 09/10/2023 10:50 EST Respiratory Rate - Anes 0 br/min br/min 09/10/2023 10:45 EST Respiratory Rate - Anes 14 br/min br/min 09/10/2023 10:42 EST Systolic Blood Pressure Non-Invasive 107 mmHg mmHg Diastolic Blood Pressure Non-Invasive 61 mmHg mmHg 09/10/2023 10:40 EST Temperature (Route Not Specified) 36.59 DegC DegC Heart Rate Monitored 79 bpm bpm Respiratory Rate - Anes 14 br/min br/min 09/10/2023 10:39 EST Systolic Blood Pressure Non-Invasive 99 mmHg mmHg Diastolic Blood Pressure Non-Invasive 62 mmHg mmHg 09/10/2023 10:36 EST Systolic Blood Pressure Non-Invasive 110 mmHg mmHg Diastolic Blood Pressure Non-Invasive 58 mmHg mmHg 09/10/2023 10:35 EST Temperature (Route Not Specified) 36.56 DegC DegC Heart Rate Monitored 79 bpm bpm Respiratory Rate - Anes 14 br/min br/min 09/10/2023 10:33 EST Systolic Blood Pressure Non-Invasive 105 mmHg mmHg Diastolic Blood Pressure Non-Invasive 58 mmHg mmHg 09/10/2023 10:30 EST Temperature (Route Not Specified) 36.53 DegC DegC Heart Rate Monitored 79 bpm bpm Respiratory Rate - Anes 14 br/min br/min Systolic Blood Pressure Non-Invasive 105 mmHg mmHg Diastolic Blood Pressure Non-Invasive 60 mmHg mmHg 09/10/2023 10:27 EST Systolic Blood Pressure Non-Invasive 101 mmHg mmHg Diastolic Blood Pressure Non-Invasive 58 mmHg mmHg 09/10/2023 10:25 EST Temperature (Route Not Specified) 36.5 DegC DegC Heart Rate Monitored 79 bpm bpm Respiratory Rate - Anes 14 br/min br/min 09/10/2023 10:24 EST Systolic Blood Pressure Non-Invasive 105 mmHg mmHg Diastolic Blood Pressure Non-Invasive 60 mmHg mmHg 09/10/2023 10:21 EST Systolic Blood Pressure Non-Invasive 103 mmHg mmHg Diastolic Blood Pressure Non-Invasive 71 mmHg mmHg 09/10/2023 10:20 EST Temperature (Route Not Specified) 36.46 DegC DegC Heart Rate Monitored 78 bpm bpm Respiratory Rate - Anes 14 br/min br/min 09/10/2023 10:18 EST Systolic Blood Pressure Non-Invasive 103 mmHg mmHg Diastolic Blood Pressure Non-Invasive 59 mmHg mmHg 09/10/2023 10:15 EST Temperature (Route Not Specified) 36.43 DegC DegC Heart Rate Monitored 76 bpm bpm Respiratory Rate - Anes 14 br/min br/min Systolic Blood Pressure Non-Invasive 107 mmHg mmHg Diastolic Blood Pressure Non-Invasive 62 mmHg mmHg 09/10/2023 10:12 EST Systolic Blood Pressure Non-Invasive 109 mmHg mmHg Diastolic Blood Pressure Non-Invasive 63 mmHg mmHg 09/10/2023 10:10 EST Temperature (Route Not Specified) 36.39 DegC DegC Heart Rate Monitored 79 bpm bpm Respiratory Rate - Anes 14 br/min br/min 09/10/2023 10:09 EST Systolic Blood Pressure Non-Invasive 108 mmHg mmHg Diastolic Blood Pressure Non-Invasive 68 mmHg mmHg 09/10/2023 10:06 EST Systolic Blood Pressure Non-Invasive 112 mmHg mmHg Diastolic Blood Pressure Non-Invasive 73 mmHg mmHg 09/10/2023 10:05 EST Temperature (Route Not Specified) 36.38 DegC DegC Heart Rate Monitored 84 bpm bpm Respiratory Rate - Anes 14 br/min br/min 09/10/2023 10:03 EST Systolic Blood Pressure Non-Invasive 111 mmHg mmHg Diastolic Blood Pressure Non-Invasive 68 mmHg mmHg 09/10/2023 10:00 EST Temperature (Route Not Specified) 36.32 DegC DegC Heart Rate Monitored 84 bpm bpm Respiratory Rate - Anes 14 br/min br/min Systolic Blood Pressure Non-Invasive 116 mmHg mmHg Diastolic Blood Pressure Non-Invasive 72 mmHg mmHg 09/10/2023 9:57 EST Systolic Blood Pressure Non-Invasive 117 mmHg mmHg Diastolic Blood Pressure Non-Invasive 66 mmHg mmHg 09/10/2023 9:55 EST Temperature (Route Not Specified) 36.31 DegC DegC Heart Rate Monitored 84 bpm bpm Respiratory Rate - Anes 14 br/min br/min 09/10/2023 9:54 EST Systolic Blood Pressure Non-Invasive 118 mmHg mmHg Diastolic Blood Pressure Non-Invasive 58 mmHg mmHg 09/10/2023 9:51 EST Systolic Blood Pressure Non-Invasive 119 mmHg mmHg Diastolic Blood Pressure Non-Invasive 67 mmHg mmHg 09/10/2023 9:50 EST Temperature (Route Not Specified) 36.38 DegC DegC Heart Rate Monitored 90 bpm bpm Respiratory Rate - Anes 10 br/min br/min 09/10/2023 9:48 EST Systolic Blood Pressure Non-Invasive 118 mmHg mmHg Diastolic Blood Pressure Non-Invasive 67 mmHg mmHg 09/10/2023 9:45 EST Heart Rate Monitored 96 bpm bpm Respiratory Rate - Anes 10 br/min br/min Systolic Blood Pressure Non-Invasive 121 mmHg mmHg Diastolic Blood Pressure Non-Invasive 65 mmHg mmHg 09/10/2023 9:42 EST Systolic Blood Pressure Non-Invasive 146 mmHg mmHg Diastolic Blood Pressure Non-Invasive 83 mmHg mmHg 09/10/2023 9:40 EST Heart Rate Monitored 100 bpm bpm Respiratory Rate - Anes 10 br/min br/min 09/10/2023 9:39 EST Systolic Blood Pressure Non-Invasive 131 mmHg mmHg Diastolic Blood Pressure Non-Invasive 66 mmHg mmHg 09/10/2023 9:36 EST Systolic Blood Pressure Non-Invasive 105 mmHg mmHg Diastolic Blood Pressure Non-Invasive 90 mmHg mmHg 09/10/2023 9:35 EST Heart Rate Monitored 88 bpm bpm Respiratory Rate - Anes 0 br/min br/min 09/10/2023 9:33 EST Systolic Blood Pressure Non-Invasive 119 mmHg mmHg Diastolic Blood Pressure Non-Invasive 60 mmHg mmHg 09/10/2023 6:55 EST Temperature Temporal Artery 36.1 DegC Peripheral Pulse Rate 74 bpm Respiratory Rate 16 br/min Systolic Blood Pressure Non-Invasive 110 mmHg Diastolic Blood Pressure Non-Invasive 66 mmHg . Mental status: at preoperative baseline. Respiratory function: respirations are non-labored, stable. Respiratory support: none. CV function: stable. Cardiovascular support: none. Pain: satisfactory. Nausea status: satisfactory. Postoperative hydration status: within normal limits. Notes: Patient is sufficiently recovered from anesthesia to participate in the evaluation. No follow-up care needed. No complications post-anesthesia.. Digitally Signed by SERAFIN DE OLIVEIRA MD on 09/10/2023 11:16 AM [id number] Note ORIGINAL EXAMINATION: SPOT FLUOROSCOPIC IMAGES 09/10/2023 10:47 am TECHNIQUE: Fluoroscopy was provided by the radiology department for procedure. Radiologist was not present during examination. FLUOROSCOPY DOSE AND TYPE: Radiation Exposure Index: Kerma mGy, 11.409 COMPARISON: None HISTORY: ORDERING SYSTEM PROVIDED HISTORY: Reason for Exam: low back pain Intraprocedural imaging. FINDINGS: Spot intraoperative images are obtained demonstrating surgical instruments projecting in the region of the lower lumbar spine. Detail is limited. Please see operative report for details. IMPRESSION: Intraprocedural fluoroscopic spot images as above. See separate procedure report for more information. Interpreted by: Etta Garnica MD Preliminary Report By: Etta Garnica MD Electronically signed By Etta Garnica MD Dictated Date: 09/10/2023 3:58:35 PM Prelim Date: 09/10/2023 3:59:05 PM Sign Date: 09/10/2023 3:59:05 PM Ordering Provider: [facility]11-07-2023 Anesthesiology Consult note Patient: AJIT ZHU Age: 38 years Sex: Male : 1985 Associated Diagnoses: None Author: MIRLANDE COX DO Preoperative Information Time of last food or liquid consumption: 09/10/2023 00:00:00 Anesthesia history Patient's history: negative. Family's history: negative. History of Present Illness Please refer to most recent H and P / daily progress note / consultation note for further details bipolar disorder, anxiety, GERD, obesity (BMI 33.45), chronic low back pain (follows with pain management) , cervical disc disease, bilateral lumbar radiculopathy, long-term opiate use, lumbar spondylosis, tobacco abuse, COVID-19 infection (July 2022) Review of Systems hx of tobacco use Denies hx of mi or cad able to climb a flight of stairs or more without chest pain or anginal symptoms >4mets Hx of GERD, well controlled, no symptoms today Otherwise patient denies any major bleeding/blood clotting disorder, neurological disorders Health Status Allergies: Allergic Reactions (Selected) NKA, Allergies (1) ActiveReaction NKANone Documented Current medications: (Selected) Inpatient Medications Ordered Kefzol: 2 gram(s), 20 mL, 240 mL/hr, IV Push (INT), PREOP pharm NS 1,000 mL: 20 mL/hr, Intravenous, Stop: 09/10/23 22:59:00 EST ceFAZolin: 1 gram(s), 10 mL, 0 mL/hr, Topical (INT), PREOP pharm Prescriptions Prescribed mupirocin 2% topical ointment: 1 kirk, Topical, BID, Bilateral intranasal application twice daily for 5 days prior to surgery &/or as many days leading up to surgery as possible due to surgical urgency/scheduling. Send to patient's preferred pharmacy., 22 gram(s), 0 Refill(s) Documented Medications Documented Nyquil Cold and Flu: 5 mL, Oral, q6hr, PRN: as needed for cold symptoms, 0 Refill(s), Medications (3) Active Scheduled: (2) ceFAZolin 1 gram(s) 10 mL, Topical (INT), PREOP pharm ceFAZolin syringe 2 gram(s) 20 mL, IV Push (INT), PREOP pharm Continuous: (1) NS (0.9% nacl) 1,000 mL 1,000 mL, Intravenous, 20 mL/hr PRN: (0) Problem list: Medical Back pain / SNOMED CT 980182572 / Confirmed Bipolar disorder / SNOMED CT 84815960 / Confirmed Cervical disc disease / SNOMED CT 7766552427 / Confirmed Chronic low back pain / SNOMED CT 719308840 / Confirmed Degenerative disc disease, lumbar / SNOMED CT 21961684 / Confirmed Family hx of colon cancer / SNOMED CT 982998544 / Confirmed GERD (gastroesophageal reflux disease) / SNOMED CT 007295383 / Confirmed Bilateral lumbar radiculopathy / SNOMED CT 632172430 / Confirmed Lumbar spondylosis / SNOMED CT 290662880 / Confirmed retirement prescription opiate use / SNOMED CT 746349468 / Confirmed, Active Problems (20) Anxiety Back pain Bilateral lumbar radiculopathy Bipolar disorder BMI 33.0-33.9,adult Cervical disc disease Chronic low back pain Chronic neck pain Contact lenses COVID Degenerative disc disease, lumbar Depression Family hx of colon cancer GERD (gastroesophageal reflux disease) 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 Family History: Cancer Father () Colon Brother () Father () Procedure history: Excision of lipoma ([id number]) in 2019 at 35 Years. Comments: 08/27/2023 10:00 Danny Oden RN abdominal wall Shoulder- metal plate ([id number]) in 2018 at 32 Years. Comments: 08/27/2023 9:55 Danny Oden RN left left Wrist- bone fragments removed ([id number]) in 2009 at 25 Years. Comments: 08/27/2023 9:56 Danny Oden RN left right ACL - Anterior cruciate ligament rupture ([id number]) in 2008 at 24 Years. Comments: 08/27/2023 9:56 Danny Oden RN right knee Loss of teeth due to extraction ([id number]). 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 Physical Examination Vital Signs 09/10/2023 6:55 EST Temperature Temporal Artery 36.1 DegC Peripheral Pulse Rate 74 bpm Respiratory Rate 16 br/min Systolic Blood Pressure Non-Invasive 110 mmHg Diastolic Blood Pressure Non-Invasive 66 mmHg Vital Signs(last 24 hrs) Last Charted Resp Rate 16 br/min (SEP 10 06:55) GPX510 mmHg (SEP 10 06:55) DBP66 mmHg (SEP 10 06:55) BMI32.86 (SEP 10 07:09) Measurements from flowsheet : Measurements 09/10/2023 7:09 EST Body Mass Index 32.86 kg/m2 09/10/2023 6:55 EST Height 172.7 cm Height in inches 68 inch(es) Admission Weight 98.0 kg Weight Lbs 215.6 lb Weight Method Actual [place] Body Weight 68.38 kg Type of Scale Used Bed scale Body Mass Index 32.86 kg/m2 Admission Body Mass Index 32.86 m2 Pain assessment: Pain Assessment 09/10/2023 6:55 EST Primary Pain Location Lower back Primary Pain Laterality Bilateral Primary Pain Intensity 8 Primary Pain Time Pattern chronic Primary Pain Quality Aching Primary Pain Nonverbal Response Nods Yes Pain Scale Type 0-10 Pain scale . General: Alert and oriented. Airway: Mallampati classification: II (soft palate, fauces, uvula visible), short thyromental distance . Dentition Evaluation: Own teeth, Denies loose/chipped teeth. Respiratory: Respirations are non-labored. Neurologic: Alert, Oriented. Review / Management Results review: No qualifying data available , Lab results 09/10/2023 7:15 EST lidocaine Not Done: Not Appropriate at this Time (Not Done) Sodium Chloride 0.9% Begin Bag 1,000 mL mL 09/10/2023 7:14 EST SN - Preop - CTm Pt in SDS Room 09/10/2023 6:55 SN - Preop - CTm Pt Ready for OR/Proced 09/10/2023 7:13 09/10/2023 7:09 EST Designated Person #1 We May Share KEVIN Jasmine [phone] Designated Person #1 Relationship Significant other Privacy Restrictions Requested None Body Mass Index 32.86 kg/m2 Status N/A Sensory Deficits None Sleep Apnea Snore No Sleep Apnea Tired No Sleep Apnea Obstruction No Sleep Apnea Pressure No Sleep Apnea BMI No Sleep Apnea Age No Sleep Apnea Neck No Sleep Apnea Gender Yes Sleep Apnea Score 1 Diagnosed With Sleep Apnea No Advanced Directives No - refuses information Infectious Disease Symptoms Cough Infectious Disease Recent Exposure No Alcohol and Drug Use No Employee of Institutional Living No Health Care Employee No History of Exposure to TB No History of Positive Chest X-Ray for TB No History of Positive TB Skin Test No Homeless No Known Immunosuppression No Recent Immigrant No Resident of Institutional Living No Bloody Sputum No Fatigue No Fever No Loss of Appetite No Night Sweats No Persistent Cough > 3 Weeks No Weight Loss No Surgery Scheduled On Date/Time 09/10/2023 9:30 Patient Aware Date/Time Of Surgery Yes Arrival Time the Day of Surgery 09/10/2023 6:45 Patient Aware of Arrival Time Yes Pre-Op Patient Education NPO after midnight, No smoking after midnight, No makeup, No jewelry, Responsible [employer] Party, Aware of surgery location, Pre-op education done, 2 bottles CHG wash with instructions given, No ordered medications, Instructed to bring home medications, VTE prevention handout given, SSI prevention handout given, MRSA protocol education provided SN - Preprocedure Comments Spoke with patient, Verbalizes/Nonverbally indicates understanding Barriers to Learning None evident Teaching Method Explanation Preferred Spoken Language Slovenian Preferred Written Language Slovenian Teaching Evaluation Verbalizes/Nonverbally indicates understanding Safety Brochure Information Reviewed Yes Chet Bustamante Video Viewed No Information Given by Patient Patient's Current Physicians Patient's Current Physicians Discharge To, Anticipated Home independently Prev Test Positive/Diagnosis w/COVID-19 No Current Quarantine/Isolated any Illness No Any Contact with Sick Animals/Birds No Traveled Anywhere in Last 30 Days No Lost Weight Unintentionally Recently No Eat Poorly Due to Decreased Appetite No Total MST Score 0 N/A Personal Devices, Patient Valuables Glasses Anesthesia/Transfusions Prior anesthesia Admission Note-Nursing Same Day Patient History 09/10/2023 7:00 EST Forearm Left 09/10/2023 20 gauge Peripheral IV Activity: Insert new site Peripheral IV Dressing Condition: Clean, Dry, Intact Peripheral IV Dressing Activity: Applied, Transparent dressing Peripheral IV Line Status/Patency: Continuous infusion Peripheral IV Line Care: Secured with tape Peripheral IV Site Condition: No complications Peripheral IV Equipment: Manual Peripheral IV Number of Attempts: 1 09/10/2023 6:55 EST Height 172.7 cm Height in inches 68 inch(es) Admission Weight 98.0 kg Weight Lbs 215.6 lb Weight Method Actual [place] Body Weight 68.38 kg Type of Scale Used Bed scale Body Mass Index 32.86 kg/m2 Admission Body Mass Index 32.86 m2 Temperature Temporal Artery 36.1 DegC Peripheral Pulse Rate 74 bpm Respiratory Rate 16 br/min Systolic Blood Pressure Non-Invasive 110 mmHg Diastolic Blood Pressure Non-Invasive 66 mmHg Primary Pain Location Lower back Primary Pain Laterality Bilateral Primary Pain Intensity 8 Primary Pain Time Pattern chronic Primary Pain Quality Aching Primary Pain Nonverbal Response Nods Yes Pain Scale Type 0-10 Pain scale Heart Rhythm Regular Respirations Unlabored Respiratory Pattern Regular Breath Sounds Auscultated Anterior only All Lobes Breath Sounds Clear Oxygen Therapy Room air Oxygen Saturation 96 % Abdomen Description Non-distended, Soft Bowel Continence Continent Bowel Sounds All Quadrants Hyperactive Urinary Elimination Voiding, no difficulties Skin Temperature Warm Skin Description Normal for ethnicity Skin Integrity Intact Mucous Membrane Color Dellrose Skin Moisture General Dry IV Present Present Neurological Symptoms Patient denies Extremity Movement Equal Characteristics of Speech Clear Level of Consciousness Alert ARLIN Yes Strength All Extremities Strong Tone All Extremities Normal Sensation All Extremities Intact Violence Risk Confused No Violence Risk Irritable No Violence Risk Boisterous No Violence Risk Verbal Threats No Violence Risk Physical Threats No Violence Risk Attacking Objects No Violence Risk Predictor Score 0 Violence Risk Intervention None Violence Risk Current Interventions None Affect/Behavior Appropriate, Calm, Cooperative Orientation Oriented x 4 Allergies Yes Consent Form Signed Yes Patient Dressed In Hospital gown Pre-op Preparation Glasses removed, Jewelry removed, Undergarments removed CHG Preoperative Wash/Wipe Night before procedure, Day of procedure, Site specific wipe Non-CHG Preoperative Shampoo Not applicable Preop Nasal Swab Povidone-Iodine History & Physical Update On Chart Yes History & Physical On Chart Yes Obstructive Sleep Apnea Assess Completed Yes MRSA/MSSA Protocol Yes Dominik Motor (2) Moves 4 extremities voluntarily or on command Dominik Respirations (2) Spontaneous respiration without support, RR > 10 Dominik Blood Pressure (2) BP 20% above or below preanesthetic level Dominik Pulse (2) Pulse 20% above or below preanesthetic level Dominik Oxygen Saturation (2) 94% or more Dominik Level of Consciousness (2) Fully awake Dominik III Score 12 Individuals Taught Patient, Significant other Learning Readiness Willing to learn Barriers to Learning None evident Teaching Method Demonstration, Explanation, Printed materials Preferred Spoken Language Slovenian Preferred Written Language Slovenian Family/Caregiver Prefer Spoken Language Slovenian Family/Caregiver Prefer Written Language Slovenian Disease Process General Education Signs/Symptoms to report, Signs/Symptoms of complications Teaching Evaluation Verbalizes/Nonverbally indicates understanding Fall Prevention Education Bed height/stabilization, Call light use, Nonskid footwear use, Rise slowly and dangle before walking Fall Prevention Teaching Evaluation Verbalizes/Nonverbally indicates understanding General Infection Prevention Strategies Hand hygiene Surgical Site Infection Prevention SSI FAQ provided, Hand hygiene Infection Prevention Teaching Evaluation Verbalizes/Nonverbally indicates understanding Pain Medication Education Pain scale Pain Teaching Evaluation Verbalizes/Nonverbally indicates understanding Pre Procedure/Surgery Education Appropriate expectations, Bring glasses, hearing aids, contact lenscase, Date/Time of procedure/surgery, Hospital gown requirement worn to OR, Leave valuables, jewelry, wedding ring at home, Meds to take or hold, NPO, 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, Surgical skin prep Procedure/Surgical Teaching Evaluation Verbalizes/Nonverbally indicates understanding Safety Measures Education Fall prevention, Call light use, Ambulation device use, Non-slip footwearuse Safety Teaching Evaluation Verbalizes/Nonverbally indicates understanding Belongings At Bedside Cell phone, Earrings, Glasses, Pants, Shirt, Shoes, Socks, Undergarments, Wallet Assistive Device None Positioning Repositions self Mobility Assistance Level Independent Activity Status ADL Awake, Resting NPO Status Maintained Standard Safety ID band on, Call device within reach, Bed in low position, Wheels locked, Upper/Half-Length side-rails up, Phone within reach, Visitor at bedside, Non-Slip footwear Demonstrates Correct Call Light Use Yes Allergy Band on and Verified No Blood Band on and Verified No Patient ID Band on and Verified Yes Implants Verified Yes Pacemaker/AICD Verified Yes Site Verified by Patient/Family Yes Last Fluid Intake 09/09/2023 23:00 Last Food Intake 09/09/2023 20:30 Last Void 09/10/2023 6:00 09/10/2023 6:01 EST IHC At-Risk Indicator YES 09/09/2023 16:28 EST Patient Instructions Documentation Patient Instructions Documentation 09/09/2023 16:24 EST IHC At-Risk Indicator YES 09/09/2023 9:47 EST Surgery Scheduled On Date/Time 09/10/2023 9:30 Patient Aware Date/Time Of Surgery Yes Arrival Time the Day of Surgery 09/10/2023 6:45 Patient Aware of Arrival Time Yes Pre-Op Patient Education NPO after midnight, No smoking after midnight, No makeup, No jewelry, Responsible [employer] Party, Aware of surgery location, Pre-op education done, 2 bottles CHG wash with instructions given, No ordered medications, Instructed to bring home medications, VTE prevention handout given, SSI prevention handout given, MRSA protocol education provided (Modified) SN - Preprocedure Comments Spoke with patient, Verbalizes/Nonverbally indicates understanding Admission Note-Nursing Patient History PreTest (Modified) . Assessment and Plan [place] [employer] Anesthesiologists (ASA) physical status classification: Class II. Anesthetic Preoperative Plan Premedication: intravenous. Anesthetic technique: General. Induction: intravenously. Maintenance airway: Oral endotracheal tube. Postoperative pain management: Per surgeon. Risks discussed: nausea, vomiting, headache, sore throat, dental injury, hypotension, allergic reaction, serious complications. Informed consent: signed by patient. Notes: Extensive time was spent discussing with the patient and/or POA the inherent risks of anesthesia including but not limited too sore throat, dental injuries to teeth and gums, corneal abrasions, risk of heart attack, stroke, end organ dysfunction, and . The patient and/or POA is aware ofthese risks, accepts them and wishes to proceed with anesthesia. bipolar disorder, anxiety, GERD, obesity (BMI 33.45), chronic low back pain (follows with pain management) , cervical disc disease, bilateral lumbar radiculopathy, long-term opiate use, lumbar spondylosis, tobacco abuse, COVID-19 infection (July 2022) . Digitally Signed by MIRLANDE COX DO on 09/10/2023 08:57 AM [id number] Instructions* Patient Instructions* Beti Ramirez - 06/11/2022 10:30 AM EDT Trigger Point Injection A Trigger Point Injection (TPI) is a procedure used to treat painful areas of muscle that contain trigger points, or knots of muscle that form when muscles do not relax. Trigger points may irritate the nerves around the muscle and cause referred pain, or pain that is felt in another part of the body. Trigger point injections are used to treat many muscle groups, including those in the arms, legs, lower back and neck. Trigger point injections can also be used to treat fibromyalgia, tension headaches and myofascial dysfunction. How is the procedure performed? Often this procedure is done in the office setting. The health care provider inserts a small needleinto the patient s trigger point. The injection contains a local anesthetic or saline, and may include a corticosteroid. The anticipated outcome with this injection is the trigger point is made inactive and the pain is alleviated. What are the risks and side effects? With any procedure there can be risks, side effects and complications. These vary depending on where the procedure was done. Whenever the integrity of the skin is broken there is a risk for infectionand soreness. There is also the potential for more numbness than expected depending on the spread of local anesthetic. Bleeding, headaches and nerve damage are also possible complications of the procedure. However, all the complications are extremely rare. documented in this [facility]08-08-2022 History of Present illness Narrative* Beti Ramirez - 06/11/2022 10:00 AM EDT Ajit and his present to the clinic today to discuss his UDS results and his current pain. Hestates the only thing he did differently the day of the UDS was using a vape pen. After doing online research, Patient's states the [employer] vape pens have been indicated to cause amphetamine-positive drug screens. HPI: Ajit Zhu Presents for evaluation and treatment of R shoulder and neck pain that shoots to the center of his back. Pain is described as Aching and Throbbing and is rated 10/10. Pain is increased with activity and movement and is relieved by nothing. Ajit states he has stopped taking all medication after positive UDS. The patient denies numbness/tingling. he denies weakness. The patient denies bowel/bladder incontinence. Patient admits to having tobacco use, about half a pack a day. Audit-C Questionnaire 1. How often do you have a drink containing alcohol? (1) monthly or less 2. How many standard drinks containing alcohol do you have on a typical day? (0) 1 or 2 3. How often do you have six or more drinks on one occasion? (0) never *A score of 3 or more in women or 4 or more in men is a positive score that requires education. Current Outpatient Medications Medication Sig amitriptyline 50 MG tablet Take 50-100 mg by mouth at bedtime. buPROPion 150 MG tablet SR TAKE 2 TABLETS BY MOUTH IN THE MORNING cloNIDine 0.1 MG tablet Take 0.1 mg by mouth 2 times daily. cyclobenzaprine 10 MG tablet Take 1 tablet by mouth at bedtime. diclofenac sodium [address] Take 1 tablet by mouth 2 times daily. lamoTRIgine 150 MG tablet TAKE 1 TABLET BY MOUTH IN THE MORNING meloxicam 15 MG tablet Take 1 tablet by mouth daily. (Patient not taking: Reported on 10/13/2021) omeprazole [address] capsule Take 20 mg by mouth daily. pregabalin 25 MG capsule Take 1 capsule by mouth at bedtime for 14 days. Then stop. This is a weaning prescription. Review of Systems: General: Denies fevers, chills, or night sweats Abdominal: Denies nausea, vomiting, diarrhea Respiratory: Denies cough, sputum production Genitourinary: Denies dysuria or frequency * Katey Medina, CORRECTIONAL SERGEANT-FIBERGLASS TECHNICIAN - 06/11/2022 10:00 AM EDT HPI: Ajit Zhu Presents for evaluation and treatment of R shoulder and neck pain that shoots to the center of his back. Pain is described as Aching and Throbbing and is rated 10/10. Pain is increased with activity and movement and is relieved by nothing. The patient denies numbness/tingling. he denies weakness. The patient denies bowel/bladder incontinence. Patient admits to having tobacco use, about half a pack a day. Audit-C Questionnaire 1. How often do you have a drink containing alcohol? (1) monthly or less 2. How many standard drinks containing alcohol do you have on a typical day? (0) 1 or 2 3. How often do you have six or more drinks on one occasion? (0) never *A score of 3 or more in women or 4 or more in men is a positive score that requires education. Past Medical History: Diagnosis Date Bipolar disorder Past Surgical History: Procedure Laterality Date KNEE SURGERY Right ORIF WRIST Left SHOULDER SURGERY Left No family history on file. Review of Systems: General: Denies fevers, chills, or night sweats Abdominal: Denies nausea, vomiting, diarrhea Respiratory: Denies cough, sputum production Genitourinary: Denies dysuria or frequency Vitals: 06/11/22 0952 BP: 116/79 Pulse: 80 Resp: 18 Physical Examination: Vitals: 06/11/22 0952 BP: 116/79 Pulse: 80 Resp: 18 Neck: Neck is supple without any lesions, and trachea is midline. Neck is bullous. There is of notea right trapezius and right rhomboid trigger point with muscle spasticities and positive twitch response. Heart: Heart is of regular rate and rhythm with no JVD noted. Lung: Lungs is are of normal expansion and unlabored. No audible wheezing noted. Respirations are non-labored. Abdomen: Abdomen is soft and non-distended. Abdomen is obese. Back: Range of motion is not guarded nor painful with flexion, extension, and rotation. No tenderness is noted along the lumbar facets bilateral. There is negative axial loading to the lumbar facets bilateral. No paravertebral spasms, trigger points, or paresthesias noted to the lumbar musculature.Fifi's is negative. Extremities: No pedal or ankle edema is noted to bilateral lower extremities. There is noted an antalgic gait. Patient ambulates unassisted. Gait is steady. Patient is able to flex, extend ,a dn empty cans test was negative Musculoskeletal: Musculoskeletal is intact with no noted motor weaknesses to the upper and lower extremities bilateral with a strength of 5/5. Neurological: The patient is intact to the upper and lower extremities bilaterally. Bicep, brachialradialis, and tricep reflexes are present and intact to the upper bilateral extremities. Patellar reflex 2/2 and Achilles reflexes are 2/2 and are present bilaterally to lower extremities. Cranial nerves are intact and functional without difficulty. Psychiatric: The patient is oriented to person, place, and time. Speech is fluent and words are clear. Thought processes are coherent, insight is good. There are no obsessive, compulsive, phobic or delusional thoughts; there are no illusions or hallucinations. The patient's fund of knowledge: awareness of current events and past history is appropriate for age. The patient's higher cognitive functions are intact. The patient's mood is neutral and the affect appropriate; there are no loose associations. Assessment: Chronic Pain Syndrome Myofascial Pain Plan: 1. The patient's UDS was positive for methamphetamines and was informed via telephone and letter that he will be on an injection only care plan. He will be on a NNCP. 2. Patient and here today to discuss the UDS results. Discussed that he is on an injection only plan with Dr Kilgore. Patient still would like to speak with Dr Kilgore about the UDS. He is statingthat it was not his urine. Discussed with patient that I would contact Dr Kilgore via email of the above. 3. Right shoulder pain - recommended a right trapezius and right rhomboid trigger point 4. RTC 2 weeks after injection for follow up 5. OARRS reviewed and appropriate * LESLYE Mo - 06/11/2022 10:00 AM EDT After emailing Dr Kilgore about the positive methamphetamine Urine drug screen, I was informed to call [facility] to discuss with them the procedure on how they verify the urine samples. This provider called and spoke with a [facility] represenative, John, and asked what their procedure was for verifying for correct urine drug specimens. The urine sample sticker is verified with the patient's name and order number and then is double checked and verified with the paper document that came with the specimen. This provider attempted to reach the patient via phone to discuss the above and there was noanswer. This provider will try and call back tomorrow * LESLYE Mo - 06/11/2022 10:00 AM EDT This provider attempted to call the patient a second time to discuss the chain of custody of the urine sample in question. There was no answer [facility]* China Boggs RN - 05/26/2022 11:49 PM EDT Pt unable to be located [facility] Emergency [facility] Note* China Boggs RN - 05/26/2022 11:49 PM EDT Pt unable to be located * China Boggs RN - 05/26/2022 11:39 PM EDT [facility] Unsure where to find patient at this time * China Boggs RN - 05/26/2022 11:28 PM EDT Pt not in lobby when this nurse out to room him. Unsure where he is at this time. [facility]* China Boggs RN - 05/26/2022 11:39 PM EDT Pt still not present in lobby. Unsure where to find patient at this time [facility] Note* China Boggs RN - 05/26/2022 11:28 PM EDT Pt not in lobby when this nurse out to room him. Unsure where he is at this time. [facility] Instructions* Patient Instructions* Aggie Sandoval RN - 05/15/2022 3:57 PM EDT Weight and Chronic Pain Excess body weight and obesity can worsen many kinds of chronic pain. People who are overweight or obese are more likely to suffer from various types of pain, including low back pain, fibromyalgia, pelvic and abdominal pain and headaches. People with chronic pain may: Have difficulty remaining active, which can lead to weight gain Experience increased stress, which can lead to overeating Take medications that may lead to weight gain Have increased stress on their joints and spine Obesity can also lead to other illnesses, such as diabetes, high blood pressure, coronary artery disease, coronary vascular disease, heart attack, stroke and even cancer. Maintaining a healthy body weight is an important part of managing your health. Body Mass Index, or BMI, is used to measure body fat and to identify a person's risk for certain diseases that can occur with being overweight or obese. In adults, a healthy weight is determined based upon the ratio of weight to height. Your Body mass index is 32.81 kg/m . BMI Weight Status Under Weight Below 18.5 Normal Weight 18.5 - 24.9 Overweight 25 - 29.9 Obese 30 and above Please read the attached handout from the [employer] [place] [employer] with guidelines and recommendations for you to review. It will help you to identify ways to maintain a healthy weight which may decrease your pain and improve your quality of life. Please contact our office or your primary care physician if you have additional questions and to help reach your personal weight goals. [employer] [email or web address] OLU Garcia, [facility] [address] [place] [address] [address] [place], [place] [address] [place], [employer]. [email or web address] [email or web address] [place], [place] [address] [employer] [email or web address] [place] [id number] [address] [facility]. [place] [id number] [address] [place] [id number] documented in this [facility]07-12-2022 History of Present illness Narrative* Aggie Sandoval RN - 05/15/2022 3:30 PM EDT HPI: Ajit Zhu Presents for evaluation and treatment of right shoulder/neck pain. Pain is described as Aching and is rated 5/10. Pain is increased with turning head to the left and is relieved by heatand cold alternating. The patient denies numbness/tingling . he denies weakness . The patient denies bowel/bladder incontinence. The patient responded with moderate relief to the most recent procedure which wasLeft Greater occipital Nerve block on 04/17/[address] Kilgore . Patient denies tobacco use. Audit-C Questionnaire 1. How often do you have a drink containing alcohol? (1) monthly or less 2. How many standard drinks containing alcohol do you have on a typical day? (0) 1 or 2 3. How often do you have six or more drinks on one occasion? (0) never *A score of 3 or more in women or 4 or more in men is a positive score that requires education. Current Outpatient Medications Medication Sig amitriptyline 50 MG tablet Take 50-100 mg by mouth at bedtime. buPROPion 150 MG tablet SR TAKE 2 TABLETS BY MOUTH IN THE MORNING cloNIDine 0.1 MG tablet Take 0.1 mg by mouth 2 times daily. cyclobenzaprine 10 MG tablet Take 1 tablet by mouth at bedtime. diclofenac sodium [address] Take 1 tablet by mouth 2 times daily. gabapentin 800 MG tablet Take 1 tablet by mouth 3 times daily. lamoTRIgine 150 MG tablet TAKE 1 TABLET BY MOUTH IN THE MORNING meloxicam 15 MG tablet Take 1 tablet by mouth daily. (Patient not taking: Reported on 10/13/2021) omeprazole [address] capsule Take 20 mg by mouth daily. Review of Systems: General: Denies fevers, chills, or night sweats Abdominal: Denies nausea, vomiting, diarrhea Respiratory: Denies cough, sputum production Genitourinary: Denies dysuria or frequency * Aggie Sandoval RN - 05/15/2022 3:30 PM EDT Call to [facility] pharmacy to obtain last gabapentin fill date as patient believes he has filled since[place]ARRS last report on 02/08/22. Per pharmacy, last fill was for 30 days on 02/08/22. * Katey Medina APRN-FIBERGLASS TECHNICIAN - 05/15/2022 3:30 PM EDT HPI: Ajit Ralph Marko Presents for evaluation and treatment of right shoulder/neck pain. Pain is described as Aching and is rated 5/10. Pain is increased with turning head to the left and is relieved by heatand cold alternating. The patient denies numbness/tingling . he denies weakness . The patient denies bowel/bladder incontinence. The patient responded with moderate relief to the most recent procedure which wasLeft Greater occipital Nerve block on 04/17/[address] Kilgore . Patient denies tobacco use. Audit-C Questionnaire 1. How often do you have a drink containing alcohol? (1) monthly or less 2. How many standard drinks containing alcohol do you have on a typical day? (0) 1 or 2 3. How often do you have six or more drinks on one occasion? (0) never *A score of 3 or more in women or 4 or more in men is a positive score that requires education. Current Outpatient Medications: amitriptyline 50 MG tablet, Take 50-100 mg by mouth at bedtime., Disp: , Rfl: buPROPion 150 MG tablet SR, TAKE 2 TABLETS BY MOUTH IN THE MORNING, Disp: , Rfl: cloNIDine 0.1 MG tablet, Take 0.1 mg by mouth 2 times daily., Disp: , Rfl: cyclobenzaprine 10 MG tablet, Take 1 tablet by mouth at bedtime., Disp: 30 tablet, Rfl: 2 diclofenac sodium [address], Take 1 tablet by mouth 2 times daily., Disp: 60 tablet, Rfl: 2 gabapentin 800 MG tablet, Take 1 tablet by mouth 3 times daily., Disp: 90 tablet, Rfl: 1 lamoTRIgine 150 MG tablet, TAKE 1 TABLET BY MOUTH IN THE MORNING, Disp: , Rfl: omeprazole [address] capsule, Take 20 mg by mouth daily., Disp: , Rfl: meloxicam 15 MG tablet, Take 1 tablet by mouth daily. (Patient not taking: Reported on 10/13/2021),Disp: 30 tablet, Rfl: 2 Past Medical History: Diagnosis Date Bipolar disorder Past Surgical History: Procedure Laterality Date KNEE SURGERY Right ORIF WRIST Left SHOULDER SURGERY Left No family history on file. Review of Systems: General: Denies fevers, chills, or night sweats Abdominal: Denies nausea, vomiting, diarrhea Respiratory: Denies cough, sputum production Genitourinary: Denies dysuria or frequency Vitals: 05/15/22 1538 BP: 118/76 Pulse: 77 Resp: 18 Physical Examination: Vitals: 05/15/22 1538 BP: 118/76 Pulse: 77 Resp: 18 Constitutional The patient is awake, alert, well developed, well nourished and well groomed. The patient is pleasant and cooperative. The patient is a good historian and is very helpful with the history and physical examination. Musculoskeletal Cervical spine The patient has normal cervical spine alignment. The patient has decreased range of motion in extension. The patient has decreased range of motion in flexion. The patient has normal range of motion in right and left lateral bend. The patient has normal range of motion in right and left rotation. Cervical facet loading is positive on right side. There is mild tenderness to palpation over the cervical spine. Tenderness to palpation is located in the left cervical spine. Spurling test is positive for left arm pain. Arm pain is reproduced in the left arm. TTP over LEFT base of the occiput with radiation of pain over the left posterior scalp Neurologic Cranial Nerves 2-12 were tested and are grossly intact. The deep tendon reflexes of the bilateral upper extremity were intact. Plantar reflexes (Babinski): toes are downgoing. Cerebellar function is normal; Romberg's test is negative. The gait is normal. Sensory testing for pain (pinprick), light touch in C5-C8 dermatome, and proprioception is decreased in the left upper extremity. Spurlings positive on left side. Motor in BUE and BLE 5/5. Psychiatric The patient is oriented to person, place, and time. Speech is fluent and words are clear. Thought processes are coherent, insight is good. There are no obsessive, compulsive, phobic or delusional thoughts; there are no illusions or hallucinations. The patient's fund of knowledge: awareness of current events and past history is appropriate for age. The patient's higher cognitive functions are intact. The patient's mood is neutral and the affect appropriate; there are no loose associations. Assessment: ICD-10-CM 1. Compliance with medication regimen Z91.89 Plan: 1. The patient responded with moderate relief to the most recent procedure which wasLeft Greater occipital Nerve block on 04/17/[address] Kilgore . 2. Increase in Gabapentin - no relief 3. He has tried cervical facet blocks in the past and were not effective 4. Patient states that he is taking the Gabapentin medication 800 mg TID. Last fill was February 2022.We will DC the Gabapentin and we will add Lyrica 50 mg 1 PO at HS. He will derease the Gabapentin to 800 mg BID x 4 days then bridge over to the Lyrica 50 mg. He states understanding on how to transition over to the Lyrica 5. The patient is using their controlled substance medication appropriately to increase activity and functional capacity. There are no signs of addiction or diversion. There are no significant side effects reported. OAR[place] report was reviewed and no abnormalities were identified. Medications were refilled as below: Requested Prescriptions Pending Prescriptions Disp Refills cyclobenzaprine 10 MG tablet 30 tablet 2 Sig: Take 1 tablet by mouth at bedtime. pregabalin 50 MG capsule 30 capsule 1 Sig: Take 1 capsule by mouth at bedtime. STOP gabapentin OARRS - The patient has been advised of the risks and benefits of these medications. OARRS report was reviewed with no advert or drug-seeking behaviors. Medication effectiveness and an evaluation of possible addiction are assessed on a regular basis by this provider. Pt denies any side effects of the medication. COMM, SOAPP, pain agreement, UDS, and Depression score are all available in [facility] for review and are updated yearly. This medication affords the patient the ability to perform ADL's and recreational activities with less pain. 6. RTC 1 mos [facility] History of Present illness Narrative* Aggie Sandoval RN - 02/08/2022 2:30 PM EDT HPI: Ajit Zhu Presents for evaluation and treatment of neck to shoulder blade pain. Pain is described as Throbbing and is rated 5/10. Pain is increased with turning head and is relieved by hot bath and medications. The patient denies numbness/tingling . he denies weakness. The patient denies bowel/bladder incontinence. The patient responded with 50% relief to the most recent procedure which was Bilateral C5-6 and C6-7 Facet joint block #1 on 10/11/21with Dr. Kilgore. Patient admits to having tobacco use. Audit-C Questionnaire 1. How often do you have a drink containing alcohol? (0) never 2. How many standard drinks containing alcohol do you have on a typical day? (0) 1 or 2 3. How often do you have six or more drinks on one occasion? (0) never *A score of 3 or more in women or 4 or more in men is a positive score that requires education. Current Outpatient Medications Medication Sig amitriptyline 50 MG tablet Take 50-100 mg by mouth at bedtime. buPROPion 150 MG tablet SR TAKE 2 TABLETS BY MOUTH IN THE MORNING cloNIDine 0.1 MG tablet Take 0.1 mg by mouth 2 times daily. cyclobenzaprine 10 MG tablet Take 1 tablet by mouth at bedtime. diclofenac sodium [address] Take 1 tablet by mouth 2 times daily. gabapentin 600 MG tablet Take 1 tablet by mouth 3 times daily. lamoTRIgine 150 MG tablet TAKE 1 TABLET BY MOUTH IN THE MORNING meloxicam 15 MG tablet Take 1 tablet by mouth daily. (Patient not taking: Reported on 10/13/2021) omeprazole [address] capsule Take 20 mg by mouth daily. Review of Systems: General: Denies fevers, chills, or night sweats Abdominal: Denies nausea, vomiting, diarrhea Respiratory: Denies cough, sputum production Genitourinary: Denies dysuria or frequency * Benji Kilgore MD - 02/08/2022 2:30 PM EDT HPI: Ajit Zhu Presents for evaluation and treatment of neck to shoulder blade pain. Pain is described as Throbbing and is rated 5/10. Pain is increased with turning head and is relieved by hot bath and medications. The patient denies numbness/tingling . he denies weakness. The patient denies bowel/bladder incontinence. The patient responded with 50% relief to the most recent procedure which was Bilateral C5-6 and C6-7 Facet joint block #1 on 10/11/21with Dr. Kilgore. Patient admits to having tobacco use. Audit-C Questionnaire 1. How often do you have a drink containing alcohol? (0) never 2. How many standard drinks containing alcohol do you have on a typical day? (0) 1 or 2 3. How often do you have six or more drinks on one occasion? (0) never *A score of 3 or more in women or 4 or more in men is a positive score that requires education. Current Outpatient Medications Medication Sig amitriptyline 50 MG tablet Take 50-100 mg by mouth at bedtime. buPROPion 150 MG tablet SR TAKE 2 TABLETS BY MOUTH IN THE MORNING cloNIDine 0.1 MG tablet Take 0.1 mg by mouth 2 times daily. cyclobenzaprine 10 MG tablet Take 1 tablet by mouth at bedtime. diclofenac sodium [address] Take 1 tablet by mouth 2 times daily. gabapentin 600 MG tablet Take 1 tablet by mouth 3 times daily. lamoTRIgine 150 MG tablet TAKE 1 TABLET BY MOUTH IN THE MORNING meloxicam 15 MG tablet Take 1 tablet by mouth daily. (Patient not taking: Reported on 10/13/2021) omeprazole [address] capsule Take 20 mg by mouth daily. Review of Systems: General: Denies fevers, chills, or night sweats Abdominal: Denies nausea, vomiting, diarrhea Respiratory: Denies cough, sputum production Genitourinary: Denies dysuria or frequency Physical Examination: Vitals: 02/08/22 1357 Pulse: 88 Resp: 18 Constitutional The patient is awake, alert, well developed, well nourished and well groomed. The patient is pleasant and cooperative. The patient is a good historian and is very helpful with the history and physical examination. No lesions noted on face. Neurologic Cranial Nerves 2-12 were tested and are grossly intact. The deep tendon reflexes of the bilateral upper extremity were intact. Plantar reflexes (Babinski): toes are downgoing. Cerebellar function is normal; Romberg's test is negative. The gait is normal. Sensory testing for pain (pinprick), light touch in C5-C8 dermatome, and proprioception is decreased in the left upper extremity. Spurlings positive on left side. Motor in BUE and BLE 5/5. Psychiatric The patient is oriented to person, place, and time. Speech is fluent and words are clear. Thought processes are coherent, insight is good. There are no obsessive, compulsive, phobic or delusional thoughts; there are no illusions or hallucinations. The patient's fund of knowledge: awareness of current events and past history is appropriate for age. The patient's higher cognitive functions are intact. The patient's mood is neutral and the affect appropriate; there are no loose associations. MSK Cervical spine The patient has normal cervical spine alignment. The patient has decreased range of motion in extension. The patient has decreased range of motion in flexion. The patient has normal range of motion in right and left lateral bend. The patient has normal range of motion in right and left rotation. Cervical facet loading is positive on right side. There is mild tenderness to palpation over the cervical spine. Tenderness to palpation is located in the left cervical spine. Spurling test is positive for left arm pain. Arm pain is reproduced in the left arm. TTP over LEFT base of the occiput with radiation of pain over the left posterior scalp Assessment: ICD-10-CM 1. Occipital neuralgia of left side M54.81 2. Cervical facet syndrome M47.812 3. Myofascial pain M79.18 4. Cervical radiculopathy M54.12 5. Chronic pain syndrome G89.4 6. Sacroiliitis M46.1 35 y/o M w/PMHx of cervical radiculopathy, bipolar (well controlled, no hospital visits recently, sees psychiatrist at [facility]) who presents for evaluation of left arm pain 12/30/20: minimal relief from C7-T1 EVAN 01/20/21: 90% relief with L paramedian C7-T1 EVAN with kenalog for 2 months 03/31/21: 70% relief with L paramedian C7-T1 EVAN with kenalog for 2-3 months 05/26/21: R SIJ injection resulted in >50% relief for 3-4 weeks now wearing/worn off 08/14/21: left C7-T1 EVAN resulted in 90% relief for 1 week 10/11/21: b/l C5-6, C6-7 facet blocks resulted in 50% relief 11/22/21: b/l iliocostalis, longissimus, spinalis muscle TPI resulted in 50% relief Meds: tried Grafton, tramadol, not very helpful. PO steroids not helpful gabapentin may be helpful, now at 600mg TID. Note OARRS does not show any fills since April, called pharmacy to confirm he is getting this. Meloxicam somewhat helpful. Imaging: cervical spine MRI shows foraminal narrowing at C5-6 without significant canal stenosis. Mild facet hypertrophy as well. Lumbar xrays pending EMG 12/2020 shows chronic C5-7 left sided radiculopathy The patient has had over 3 months of moderate to severe left arm pain with functional impairment and inadequate response to conservative care including NSAIDS and home exercise program/physical therapy. I have reviewed the imaging of the cervical spine and no red flags were identified. Plan: -left greater occipital nerve block under ultrasound -increase gabapentin to 800mg PO TID -refill flexeril 10mg PO at bedtime prn spasms -f/u 2 weeks after injection The patient was advised that U.S. Food and Drug Administration (FDA) is warning that respiratory depression may occur in patients using gabapentin (Neurontin, Gralise, Horizant) or pregabalin (Lyrica, Lyrica CR) who have respiratory risk factors. These include the use of opioid pain medicines and other drugs that depress the central nervous system, and conditions such as chronic obstructive pulmonary disease (COPD) that reduce lung function. The elderly are also at higher risk. I have checked an OARRS report on this patient today and there are no aberrancies noted in the prescribing history. A drug screen was completed and reviewed within the last year, and if there has not been a drug screen completed we ordered one today to monitor higher risk, state monitored pain medication use. The patient was counseled that proper dietary changes and consistent participation in a home exercise plan can lead to weight loss. Weight loss can help to improve functionality in patients with chronic pain. Patient identified through screening process as a tobacco user, this generated a brief counseling of less than 3 minutes between the provider and the patient about the benefits of ceasing tobacco use. Education handout was provided following discussion. [facility] History of Present illness Narrative* Benji Kilgore MD - 12/14/2021 3:00 PM EST HPI: Ajit Zhu Presents for evaluation and treatment of Low Back pain. Pain is described as Aching and is rated 5/10. Pain is increased with lifting and is relieved by pain medication. The patient denies numbness/tingling. he denies weakness. The patient denies bowel/bladder incontinence. The patient responded with 50% relief to the most recent procedure which was Bilateral C5-6 and C6-7 Facet joint block under Fluoroscopic Guidance on 10/11. patient reports tobacco use, denies alcohol use Audit-C Questionnaire 1. How often do you have a drink containing alcohol? (0) never 2. How many standard drinks containing alcohol do you have on a typical day? (0) 1 or 2 3. How often do you have six or more drinks on one occasion? (0) never *A score of 3 or more in women or 4 or more in men is a positive score that requires education. Current Outpatient Medications: buPROPion 150 MG tablet SR, TAKE 2 TABLETS BY MOUTH IN THE MORNING, Disp: , Rfl: cloNIDine 0.1 MG tablet, Take 0.1 mg by mouth 2 times daily., Disp: , Rfl: cyclobenzaprine 10 MG tablet, Take 1 tablet by mouth at bedtime., Disp: 30 tablet, Rfl: 2 diclofenac sodium [address], Take 1 tablet by mouth 2 times daily., Disp: 60 tablet, Rfl: 2 gabapentin 600 MG tablet, Take 1 tablet by mouth 3 times daily., Disp: 90 tablet, Rfl: 2 lamoTRIgine 150 MG tablet, TAKE 1 TABLET BY MOUTH IN THE MORNING, Disp: , Rfl: meloxicam 15 MG tablet, Take 1 tablet by mouth daily. (Patient not taking: Reported on 10/13/2021),Disp: 30 tablet, Rfl: 2 Current Facility-Administered Medications: dexAMETHasone PF (DECADRON) injection 10 mg, 10 mg, Other, Once (Outpt Clinic), Benji Kilgore MD Past Medical History Past Medical History: Diagnosis Date Bipolar disorder Past Surgical History Past Surgical History: Procedure Laterality Date KNEE SURGERY Right ORIF WRIST Left SHOULDER SURGERY Left Family History History reviewed. No pertinent family history. Review of Systems: General: Denies fevers, chills, or night sweats Abdominal: Denies nausea, vomiting, diarrhea Respiratory: Denies cough, sputum production Genitourinary: Denies dysuria or frequency Vitals: 10/13/21 1347 BP: 119/84 Pulse: 89 Physical Examination: Vitals: 10/13/21 1347 BP: 119/84 Pulse: 89 Neck: Neck is supple without any lesions, and trachea is midline. Neck is bullous Heart: Heart is of regular rate and rhythm with no JVD noted. There is of not to the bilateral cervical and trapezius musculature muscle spasticities with positive twitch response Lung: Lungs is are of normal expansion and unlabored. No audible wheezing noted. Respirations are non-labored. Abdomen: Abdomen is soft and non-distended. Abdomen is obese. Back: Range of motion is not guarded nor painful with flexion, extension, and rotation. No tenderness is noted along the lumbar facets bilateral. There is negative axial loading to the lumbar facets bilateral. No paravertebral spasms, trigger points, or paresthesias noted to the lumbar musculature.Fifi's is negative. Extremities: No pedal or ankle edema is noted to bilateral lower extremities. There is noted an antalgic gait. Patient ambulates unassisted. Gait is steady Musculoskeletal: Musculoskeletal is intact with no noted motor weaknesses to the upper and lower extremities bilateral with a strength of 5/5. Neurological: The patient is intact to the upper and lower extremities bilaterally. Bicep, brachialradialis, and tricep reflexes are present and intact to the upper bilateral extremities. Patellar reflex 2/2 and Achilles reflexes are 2/2 and are present bilaterally to lower extremities. Cranial nerves are intact and functional without difficulty. Psychiatric: The patient is cooperative, alert and oriented 3, and appropriate. No acute distress is noted. There a no loose associations noted. Patient is able to answer all questions without difficulty or hesitation. Assessment: ICD-10-CM 1. Cervical radiculopathy M54.12 2. Polyneuropathy G62.9 3. Myofascial pain M79.18 35 y/o M w/PMHx of cervical radiculopathy, bipolar (well controlled, no hospital visits recently, sees psychiatrist at [facility]) who presents for evaluation of left (note it has always been left, been documented as right in past notes) arm pain 12/30/20: minimal relief from C7-T1 EVAN 01/20/21: 90% relief with L paramedian C7-T1 EVAN with kenalog for 2 months 03/31/21: 70% relief with L paramedian C7-T1 EVAN with kenalog for 2-3 months 05/26/21: R SIJ injection resulted in >50% relief for 3-4 weeks now wearing/worn off 08/14/21: left C7-T1 EVAN resulted in 90% relief for 1 week 10/11/21: b/l C5-6, C6-7 facet blocks resulted in 50% relief 11/22/21: b/l iliocostalis, longissimus, spinalis muscle TPI resulted in 50% relief Meds: tried [place], tramadol, not very helpful. PO steroids not helpful gabapentin may be helpful, now at 400mg TID. Note OARRS does not show any fills since April, called pharmacy to confirm he is getting this. Meloxicam somewhat helpful. Imaging: cervical spine MRI shows foraminal narrowing at C5-6 without significant canal stenosis. Mild facet hypertrophy as well. Lumbar xrays pending EMG 12/2020 shows chronic C5-7 left sided radiculopathy The patient has had over 3 months of moderate to severe left arm pain with functional impairment and inadequate response to conservative care including NSAIDS and home exercise program/physical therapy. I have reviewed the imaging of the cervical spine and no red flags were identified. Plan: -refill gabapentin 600mg PO TID -refill flexeril 10mg PO at bedtime PRN -discussed R GONB, declines today -f/u in 2 months The patient was advised that U.S. Food and Drug Administration (FDA) is warning that respiratory depression may occur in patients using gabapentin (Neurontin, Gralise, Horizant) or pregabalin (Lyrica, Lyrica CR) who have respiratory risk factors. These include the use of opioid pain medicines and other drugs that depress the central nervous system, and conditions such as chronic obstructive pulmonary disease (COPD) that reduce lung function. The elderly are also at higher risk. I have checked an OARRS report on this patient today and there are no aberrancies noted in the prescribing history. A drug screen was completed and reviewed within the last year, and if there has not been a drug screen completed we ordered one today to monitor higher risk, state monitored pain medication use. Patient identified through screening process as a tobacco user, this generated a brief counseling of less than 3 minutes between the provider and the patient about the benefits of ceasing tobacco use. Education handout was provided following discussion. Thank you for the opportunity to participate in the care of your patient. Sincerely, Benji Kilgore MD [facility] History and physical note* Benji Kilgore MD - 11/22/2021 2:15 PM EST HPI: This 36 y.o. male presents for treatment of chronic back Pain. Current Outpatient Medications: amitriptyline 50 MG tablet, Take 50-100 mg by mouth at bedtime., Disp: , Rfl: buPROPion 150 MG tablet SR, TAKE 2 TABLETS BY MOUTH IN THE MORNING, Disp: , Rfl: cloNIDine 0.1 MG tablet, Take 0.1 mg by mouth 2 times daily., Disp: , Rfl: cyclobenzaprine 10 MG tablet, Take 1 tablet by mouth at bedtime., Disp: 30 tablet, Rfl: 2 diclofenac sodium [address], Take 1 tablet by mouth 2 times daily., Disp: 60 tablet, Rfl: 2 gabapentin 600 MG tablet, Take 1 tablet by mouth 3 times daily., Disp: 90 tablet, Rfl: 2 lamoTRIgine 150 MG tablet, TAKE 1 TABLET BY MOUTH IN THE MORNING, Disp: , Rfl: omeprazole [address] capsule, Take 20 mg by mouth daily., Disp: , Rfl: meloxicam 15 MG tablet, Take 1 tablet by mouth daily. (Patient not taking: Reported on 10/13/2021),Disp: 30 tablet, Rfl: 2 Current Facility-Administered Medications: bupivacaine (PF) (MARCAINE) 0.25 % 10 mL syringe, 10 mL, Other, Once (Outpt Clinic), Benji Kilgore MD lidocaine 1% (PF) (XYLOCAINE MPF) 10 mL syringe, 10 mL, Other, Once (Outpt Clinic), Benji Kilgore MD sodium chloride (PF) 0.9% injection 10 mL, 10 mL, Other, Once (Outpt Clinic), Benji Kilgore MD Past Medical History: Diagnosis Date Bipolar disorder Past Surgical History: Procedure Laterality Date KNEE SURGERY Right ORIF WRIST Left SHOULDER SURGERY Left No family history on file. Review of Systems: General: Denies fevers, chills, or night sweats Abdominal: Denies nausea, vomiting, diarrhea Respiratory: Denies cough, sputum production Genitourinary: Denies dysuria or frequency Vitals: 11/22/21 1416 BP: 135/86 Pulse: 80 Resp: 18 Physical Examination: Vitals: 11/22/21 1416 BP: 135/86 Pulse: 80 Resp: 18 Constitutional The patient is awake, alert, well developed, well nourished and well groomed. The patient is pleasant and cooperative. The patient is a good historian and is very helpful with the history and physical examination. Musculoskeletal The patient has mild difficulty transitioning from sitting to standing. The patient has a(n) normalgait. The thoracic spine demonstrates a flexion biased curve. Palpation reveals tenderness over thebilateral thoracic spine. Thoracic range of motion is limited in right rotation, left rotation. There is no deformity to the thoracic spine. There is moderate abnormality in muscle tone in the lumbosacral spine. Trigger points are present in the thoracic spine musculature with associated twitch response. Neurologic Cranial Nerves 2-12 were tested and are grossly intact. The deep tendon reflexes of the bilateral upper extremity were intact. Plantar reflexes (Babinski): toes are downgoing. Cerebellar function is normal; Romberg's test is negative. The gait is normal. Sensory testing for pain (pinprick), light touch in C5-C8 dermatome, and proprioception is decreased in the left upper extremity. Spurlings positive on left side. Motor in BUE and BLE 5/5. Psychiatric The patient is oriented to person, place, and time. Speech is fluent and words are clear. Thought processes are coherent, insight is good. There are no obsessive, compulsive, phobic or delusional thoughts; there are no illusions or hallucinations. The patient's fund of knowledge: awareness of current events and past history is appropriate for age. The patient's higher cognitive functions are intact. The patient's mood is neutral and the affect appropriate; there are no loose associations. Assessment: ICD-10-CM 1. Chronic pain syndrome G89.4 2. Myofascial pain M79.18 Plan: Proceed with thoracic TPI documented in this [facility]01-19-2022 History of Present illness Narrative* Benji Kilgore MD - 11/22/2021 2:15 PM EST Procedures Procedure: Bilateral iliocostalis, longissimus, and spinalis muscle Trigger Point Injection under ultrasound Attending Physician: Benji Kilgore MD PreOperative Diagnosis: myofascial pain PostOperative Diagnosis: Same Anesthesia: Local Complications: None Indications for Procedure: This patient presents for evaluation treatment of upper back pain. The patient has spasticity pain in the thoracic spine. The patient has palpable triggerpoints. The patient presents for thoracic trigger point injection. Technique: The prior authorization technician's and physician's hands were washed immediately prior to the procedure using a chlorhexidine soap or sanitized using ethyl alcohol hand telegraph printer mechanic. Hat, mask, and sterile gloves were used for the entirety of the procedure. All other personnel in the room wore hat and masks, as well as appropriate personal protective equipment. The patient was given a verbal description of the procedure, including the risks and benefits of the procedure. The patient signed written informed consent for the procedure and was taken to the procedure room. The patient was placed prone on the procedure table. The patient's thoracic spine was prepped and draped in the usual sterile fashion using Hibiclens x3. A time out procedure was performed. The patient's thoracic spine was palpated for trigger points. The muscles injected were the iliocostalis, longissimus, and spinalis muscles. An ultrasound (covered with a sterile ultrasound probe cover and using sterile gel) was used to confirm that the pleura was not punctured during the procedure, and a 22 gauge 3 and 1/8th inch echogenic was used to enter the trigger points under continuous ultrasound guidance. After negative aspiration for air, heme, or other bodily fluids, a mixture of 10mLs of 0.25% bupivicaine and 10mLs of normal saline was evenly distributed into the trigger points.A total of 8 trigger points were injected. When the injection was completed, the patient's back wascleansed and dried. Band aid dressings were applied. The patient tolerated the procedure well with no immediate complications. The patient was discharged home when discharge criteria was met. * Julio Garcia RN - 11/22/2021 2:15 PM EST HPI: Ajit Zhu Presents for evaluation and treatment of upper back pain. Pain is described as Aching, Throbbing, Shooting, Stabbing, Sharp, Tender and Burning and is rated 10/10. Pain is increased with activity and is relieved by hot bath. The patient admits to having numbness/tingling intermittent bilateral arms. he denies weakness. The patient denies bowel/bladder incontinence. Audit-C Questionnaire 1. How often do you have a drink containing alcohol? (0) never 2. How many standard drinks containing alcohol do you have on a typical day? n/a 3. How often do you have six or more drinks on one occasion? (0) never *A score of 3 or more in women or 4 or more in men is a positive score that requires education. Current Outpatient Medications Medication Sig amitriptyline 50 MG tablet Take 50-100 mg by mouth at bedtime. buPROPion 150 MG tablet SR TAKE 2 TABLETS BY MOUTH IN THE MORNING cloNIDine 0.1 MG tablet Take 0.1 mg by mouth 2 times daily. cyclobenzaprine 10 MG tablet Take 1 tablet by mouth at bedtime. diclofenac sodium [address] Take 1 tablet by mouth 2 times daily. gabapentin 600 MG tablet Take 1 tablet by mouth 3 times daily. lamoTRIgine 150 MG tablet TAKE 1 TABLET BY MOUTH IN THE MORNING omeprazole [address] capsule Take 20 mg by mouth daily. meloxicam 15 MG tablet Take 1 tablet by mouth daily. (Patient not taking: Reported on 10/13/2021) Review of Systems: General: Denies fevers, chills, or night sweats Abdominal: Denies nausea, vomiting, diarrhea Respiratory: Denies cough, sputum production Genitourinary: Denies dysuria or frequency documented in this [facility]11-09-2021 History of Present illness Narrative* Aggie Good - 09/12/2021 2:45 PM EST Symptoms Have you had a COVID-19 viral test in the past 14 days? No Are you experiencing any symptoms? No; If No, then that ends the assessment. Inform the patient they are low risk at this time and testing is not indicated. Continue to monitoryour symptoms/ situation and seek medical attention if indicated. See [place] [facility] or [facility] website for additional information. Screening complete. * Katey Medina APRN-FIBERGLASS TECHNICIAN - 09/12/2021 2:30 PM EST HPI: Zana Zhu Presents for evaluation and treatment of neck and upper back pain. Pain is describedas Aching and Throbbing and is rated 7/10. Pain is increased with inactivity and is relieved by hotbath. The patient denies numbness/tingling. he denies weakness. The patient denies bowel/bladder inc ontinence. The patient responded with 90% relief for 1 week to the most recent procedure which was Left C7-T1 epidural steroid injection on 08/14/21. Audit-C Questionnaire 1. How often do you have a drink containing alcohol? (1) monthly or less 2. How many standard drinks containing alcohol do you have on a typical day? (0) 1 or 2 3. How often do you have six or more drinks on one occasion? (0) never *A score of 3 or more in women or 4 or more in men is a positive score that requires education. UDS: 12/22/20 MMA: 12/22/2020 SOAPP: score= on 12/22/2020 BMI: on 12/22/2020 Depression screen: score= on 12/22/2020 Alcohol screen: 1 on 12/22/20 Narcan RX: Current Outpatient Medications: buPROPion 150 MG tablet SR, TAKE 2 TABLETS BY MOUTH IN THE MORNING, Disp: , Rfl: cloNIDine 0.1 MG tablet, Take 0.1 mg by mouth 2 times daily., Disp: , Rfl: lamoTRIgine 150 MG tablet, TAKE 1 TABLET BY MOUTH IN THE MORNING, Disp: , Rfl: gabapentin 600 MG tablet, Take 1 tablet by mouth 3 times daily., Disp: 90 tablet, Rfl: 1 meloxicam 15 MG tablet, Take 1 tablet by mouth daily., Disp: 30 tablet, Rfl: 2 Current Facility-Administered Medications: dexAMETHasone PF (DECADRON) injection 10 mg, 10 mg, Other, Once (Outpt Clinic), Benji Kilgore MD Past Medical History: Diagnosis Date Bipolar disorder Past Surgical History: Procedure Laterality Date KNEE SURGERY Right ORIF WRIST Left SHOULDER SURGERY Left History reviewed. No pertinent family history. Review of Systems: General: Denies fevers, chills, or night sweats Abdominal: Denies nausea, vomiting, diarrhea Respiratory: Denies cough, sputum production Genitourinary: Denies dysuria or frequency Vitals: 09/12/21 1359 BP: 115/79 Pulse: 85 Resp: 19 Review of Systems: Physical Examination: Vitals: 09/12/21 1359 BP: 115/79 Pulse: 85 Resp: 19 Constitutional The patient is awake, alert, well developed, well nourished and well groomed. The patient is pleasant and cooperative. The patient is a good historian and is very helpful with the history and physical examination. Musculoskeletal Cervical spine The patient has normal cervical spine alignment. The patient has decreased range of motion in extension. The patient has decreased range of motion in flexion. The patient has normal range of motion in right and left lateral bend. The patient has normal range of motion in right and left rotation. Cervical facet loading is positive on right side. There is mild tenderness to palpation over the cervical spine. Tenderness to palpation is located in the left cervical spine. Spurling test is positive for left arm pain. Arm pain is reproduced in the left arm. Neurologic Cranial Nerves 2-12 were tested and are grossly intact. The deep tendon reflexes of the bilateral upper extremity were intact. Plantar reflexes (Babinski): toes are downgoing. Cerebellar function is normal; Romberg's test is negative. The gait is normal. Sensory testing for pain (pinprick), light touch in C5-C8 dermatome, and proprioception is decreased in the left upper extremity. Spurlings positive on left side. Motor in BUE and BLE 5/5. Psychiatric Normal Psych: The patient is oriented to person, place, and time. Speech is fluent and words are clear. Thought processes are coherent, insight is good. There are no obsessive, compulsive, phobic or delusional thoughts; there are no illusions or hallucinations. The patient's fund of knowledge: awareness of current events and past history is appropriate for age. The patient's higher cognitive functions are intact. The patient's mood is neutral and the affect appropriate; there are no loose associations. Assessment: ICD-10-CM 1. Cervical radiculopathy M54.12 2. Chronic pain syndrome G89.4 3. Right hip pain M25.551 4. Sacroiliitis M46.1 Plan: 1. Significant relief after the EVAN 2. Cervical x-ray reviewed 3. In regards to the bilateral CERVICAL c5-6 AND c6-7 facet arthropathy, I feel the patient would benefit from a set of 2 trial facet blocks to diagnose the pain generator . If the patient has a positive result of at least 80% or greater relief from their symptoms on 2 separate occasions, I feel the patient would be a candidate for a radiofrequency ablation. 4. Patient will follow up in the clinic between the 2 facet injections to reassess there pain. 5. Dc Meloxicam and add Diclofenac 50 mg 1 PO BID with food 6. Add Flexeril 10 mg 1 PO at HS 7. RTC after injection * Luis Ortiz RN - 09/12/2021 2:30 PM EST HPI: Ajit Zhu Presents for evaluation and treatment of neck and upper back pain. Pain is described as Aching and Throbbing and is rated 7/10. Pain is increased with inactivity and is relieved by hot bath. The patient denies numbness/tingling. he denies weakness. The patient denies bowel/bladder inco ntinence. The patient responded with 50% relief for 1 week to the most recent procedure which was Left C7-T1 epidural steroid injection on 08/14/21. Audit-C Questionnaire 1. How often do you have a drink containing alcohol? (1) monthly or less 2. How many standard drinks containing alcohol do you have on a typical day? (0) 1 or 2 3. How often do you have six or more drinks on one occasion? (0) never *A score of 3 or more in women or 4 or more in men is a positive score that requires education. Current Outpatient Medications Medication Sig buPROPion 150 MG tablet SR TAKE 2 TABLETS BY MOUTH IN THE MORNING cloNIDine 0.1 MG tablet Take 0.1 mg by mouth 2 times daily. gabapentin 600 MG tablet Take 1 tablet by mouth 3 times daily. lamoTRIgine 150 MG tablet TAKE 1 TABLET BY MOUTH IN THE MORNING meloxicam 15 MG tablet Take 1 tablet by mouth daily. Review of Systems: General: Denies fevers, chills, or night sweats Abdominal: Denies nausea, vomiting, diarrhea Respiratory: Denies cough, sputum production Genitourinary: Denies dysuria or frequency documented in this [facility]09-27-2021 NoteThis report has been cancelled.[facility]07-23-2021 History and physical note* Benji Kilgore MD - 05/26/2021 11:45 AM EDT HPI: This 35 y.o. male presents for treatment of chronic back Pain. Current Outpatient Medications: buPROPion 150 MG tablet SR, TAKE 2 TABLETS BY MOUTH IN THE MORNING, Disp: , Rfl: cloNIDine 0.1 MG tablet, Take 0.1 mg by mouth 2 times daily., Disp: , Rfl: gabapentin 400 MG capsule, Take 1 capsule by mouth 3 times daily., Disp: 90 capsule, Rfl: 0 lamoTRIgine 150 MG tablet, TAKE 1 TABLET BY MOUTH IN THE MORNING, Disp: , Rfl: meloxicam 15 MG tablet, Take 1 tablet by mouth daily., Disp: 30 tablet, Rfl: 2 Current Facility-Administered Medications: dexAMETHasone PF (DECADRON) injection 10 mg, 10 mg, Other, Once (Outpt Clinic), Benji Kilgore MD Past Medical History: Diagnosis Date Bipolar disorder Past Surgical History: Procedure Laterality Date KNEE SURGERY Right ORIF WRIST Left SHOULDER SURGERY Left No family history on file. Review of Systems: General: Denies fevers, chills, or night sweats Abdominal: Denies nausea, vomiting, diarrhea Respiratory: Denies cough, sputum production Genitourinary: Denies dysuria or frequency Vitals: 05/26/21 1130 BP: 122/72 Pulse: 70 Resp: 18 Physical Examination: Vitals: 05/26/21 1130 BP: 122/72 Pulse: 70 Resp: 18 Constitutional The patient is awake, alert, well developed, well nourished and well groomed. The patient is pleasant and cooperative. The patient is a good historian and is very helpful with the history and physical examination. Musculoskeletal Lumbar Spine The patient has moderate difficulty transitioning from sitting to standing. The patient has a(n) antalgic gait. The lumbar spine demonstrates a flexion biased curve. Palpation reveals tenderness overthe right sacral spine and over the PSIS. Lumbosacral range of motion is limited in extension, right rotation, right lateral bend, left rotation, left lateral bend FIFI Larry test produces pain inthe right sacroiliac joint pain. There is also = positive thigh thrust, ASIS compression test, Yale's test, and Gaenslen's on exam.There is mild abnormality in muscle tone in the lumbosacral spine.Trigger points are not present in the lumbosacral spine musculature. Muscle strength is grossly intact in the bilateral lower extremities. Seated straight leg raise is negative in the lower extremityfor leg pain radiating to the foot from the low back today. Neurologic Cranial Nerves 2-12 were tested and are grossly intact. The gait is abnormal. Sensory testing for pain (pinprick), light touch, position, and vibration is intact in lower extremties Psychiatric The patient is oriented to person, place, and time. Speech is fluent and words are clear. Thought processes are coherent, insight is good. There are no obsessive, compulsive, phobic or delusional thoughts; there are no illusions or hallucinations. The patient's fund of knowledge: awareness of current events and past history is appropriate for age. The patient's higher cognitive functions are intact. The patient's mood is neutral and the affect appropriate; there are no loose associations. Assessment: ICD-10-CM 1. Sacroiliitis M46.1 Plan: Proceed with right sacroiliac joint injection documented in this [facility]07-23-2021 History of Present illness Narrative* Benji Kilgore MD - 05/26/2021 11:45 AM EDT Procedures Sacroiliac Joint Injection Procedure: Right Sacroiliac Joint Injection under Fluoro Physician: Benji Kilgore MD PreOperative Diagnosis: Sacroiliitis, Sacroiliac Joint Disorder, Low back pain PostOperative Diagnosis: Same Anesthesia: Local Complications:None Blood Loss: Minimal Indications for Procedure: This patient presents for treatment of chronic low back pain. The patient has increased pain with FIFI test on the Right. The patient presents for Right SI joint injection. Technique: The patient was given a verbal description of the intended procedure including the risks and benefits of the procedure. The patient then provided written informed consent for the procedure. The patient was then taken to the operating room and placed prone on the operating table. The patient's lumbosacral spine was prepped and draped in the usual sterile fashion using chlorhexidine prep times 3. AC-arm flouroscope was then brought into the operating field and an AP radiograph is taken of the lumbosacral spine with attention to the Left sacroiliac joint. The C-arm was then obliqued 10 to the Left to align the medial and lateral aspect of the joint. The skin and subcutaneous tissue overlying t his target was anesthetized with 5 mL of 1% lidocaine. Through this anesthetized tissue a 3.5 22gauge angulated Quincke spinal needle was advanced under intermittent fluoroscopic guidance to enter the joint. A lateral radiograph was then taken to determine the depth of the needle. Needle position was confirmed within the joint. The stylet was then removed. Then, after negative aspiration for blood, CSF or any other body fluids, 0.5 ml of Omnipaque 300 contrast was injected which revealed an appropriate arthrogram with no vascular uptake. 20 mg of kenalog + 2 ml 0.25% Bupivicaine was injectedslowly. When the injection was complete the needle was flushed and then removed. The patient's lumbosacral spine was cleansed and dried. A Band-Aid dressing was applied. The patient was then turned supine onto a transport bed and taken to the recovery room in good condition. The patient tolerated the procedure well with no immediate complications. * Dianna Juares RN - 05/26/2021 11:[address]: Jame Graf RN Sheet Taker: Dianna Reed RN RT: RT Nicole/Christina Site cleansed with Hibiclens [facility] Instructions* Patient Instructions* Aggie Sandoval RN - 05/26/2021 11:45 AM EDT [facility] WHAT TO EXPECT AFTER A PROCEDURE Follow up appointment: Call the office ([phone]) if you have any questions or develop the following: A fever of 101.2 degrees or higher An unusual headache, worsening of an existing headache, or visual changes Marked increase in neck or back pain Trouble urinating If you lose control of your bowel, bladder or legs, go to the Emergency Room. Keep dressing dry and intact for 24 hours, then remove dressing. If you are diabetic, steroids used in some procedures may raise your blood sugar. Call your family doctor if your blood sugar is greater than 250. Follow up with your family doctor 3-7 days after having this procedure. Specific procedure information: [] Nerve Block Injection: This is a diagnostic procedure to test to see if this is the source of your pain. You may have relief for 2-4 hours. For the first 2 hours, do activities that would normallycause you pain in this area. Keep track if it is a little better, a lot better or no better during this 2 hours. Discuss this information with the doctor at the follow up visit to determine the next s tep in treatment. Do not sleep or take pain medication for 2 hours after the procedure. Avoid strenuous activity the day of procedure. Patient may return to work the same day. [] Radiofrequency Ablation: The patient should take it easy for a day or so after this procedure. They may have inflammation and/or pain at the procedure site. Apply ice to the affected area. Performnormal activities as tolerated. It may take up to 12 weeks to notice the full benefit of this procedure. [] Joint Steroid Injection: Do activities that would normally cause you pain for the first two hours after the procedure, keep track of how much relief you have and how long it lasts. You will discuss this with the doctor at the follow up visit. Patients may not experience full improvement for 2-3 days after the procedure. Avoid strenuous activity the day of procedure. Patient may return to work the next day. [] Epidural Steroid Injection: Patient may feel numbness in legs or arms, depending on the procedure site. Pain may return 4-6 hours after local anesthetic wears off. Pain may worsen in the first 48 hours and may not fully improve for 7-10 days. Avoid strenuous activity the day of procedure. Patient may return to work the next day. [] Transforaminal Epidural Steroid Injection: Patient may experience immediate relief after the procedure. The patient may feel numbness in the legs or arms, depending on the procedure site. Pain mayreturn four to six hours after the local anesthetic wears off. Pain may worsen in the first 48 hours and may not fully improve for 3-4 days. Avoid strenuous activity the day of procedure. Patient mayreturn to work the next day. [] Sympathetic Block: Patient may experience immediate relief after the procedure. The patient may feel numbness in the legs or arms, depending on the procedure site. Pain may return four to six hours after the local anesthetic wears off. Pain may worsen in the first 48 hours and may not fully improve for 3-4 days. Avoid strenuous activity the day of procedure. Patient may return to work the nextday. You may experience lightheadedness, nausea, diarrhea, and sweating (secondary to low blood pressure and/or heart rate. If you have any further concerns or questions don t hesitate to call us at . Thank you, [facility] History of Present illness Narrative* Benji Kilgore MD - 04/13/2021 1:30 PM EDT HPI: Ajit Zhu Presents for evaluation and treatment of left arm and right hip pain. Worst of his pain today is right hip. Pain is described as Aching and is rated 4/10. Pain is increased with going up and down stairs, standing and walking and is relieved by heating pad. The patient admits to having numbness/tingling to left arm. he denies weakness . The patient denies bowel/bladder incontinence. The patient responded with significant relief to the most recent procedure which was left C7-T1 NELSON on 03/31/[address] Kilgore. He is still finding that the injection remains helpful and would like todiscuss hip pain today. Current Outpatient Medications Medication Sig buPROPion 150 MG tablet SR TAKE 2 TABLETS BY MOUTH IN THE MORNING cloNIDine 0.1 MG tablet Take 0.1 mg by mouth 2 times daily. gabapentin 300 MG capsule Take 1 capsule by mouth 3 times daily. lamoTRIgine 150 MG tablet TAKE 1 TABLET BY MOUTH IN THE MORNING Review of Systems: General: Denies fevers, chills, or night sweats Abdominal: Denies nausea, vomiting, diarrhea Respiratory: Denies cough, sputum production Genitourinary: Denies dysuria or frequency Physical Examination: Vitals: 04/13/21 1309 BP: 114/64 Pulse: 72 Resp: 20 Constitutional The patient is awake, alert, well developed, well nourished and well groomed. The patient is pleasant and cooperative. The patient is a good historian and is very helpful with the history and physical examination. No lesions noted on face. Neurologic Cranial Nerves 2-12 were tested and are grossly intact. The deep tendon reflexes of the bilateral upper extremity were intact. Plantar reflexes (Babinski): toes are downgoing. Cerebellar function is normal; Romberg's test is negative. The gait is normal. Sensory testing for pain (pinprick), light touch in C5-C8 dermatome, and proprioception is decreased in the left upper extremity. Spurlings positive on left side. Motor in BUE and BLE 5/5. Psychiatric The patient is oriented to person, place, and time. Speech is fluent and words are clear. Thought processes are coherent, insight is good. There are no obsessive, compulsive, phobic or delusional thoughts; there are no illusions or hallucinations. The patient's fund of knowledge: awareness of current events and past history is appropriate for age. The patient's higher cognitive functions are intact. The patient's mood is neutral and the affect appropriate; there are no loose associations. MSK Cervical spine The patient has normal cervical spine alignment. The patient has decreased range of motion in extension. The patient has decreased range of motion in flexion. The patient has normal range of motion in right and left lateral bend. The patient has normal range of motion in right and left rotation. Cervical facet loading is positive on right side. There is mild tenderness to palpation over the cervical spine. Tenderness to palpation is located in the left cervical spine. Spurling test is positive for left arm pain. Arm pain is reproduced in the left arm. Muscle strength is 5/5 in the Bilateral upper extremity. Lumbar spine: ROM is limited with extension, lateral bending and rotation. Facet loading is mildly positive on right side. TTP over R PSIS. FIFI, Gaenslen's, Yale's all positive on right for SIJ pain . Stinchfield negative. Assessment: ICD-10-CM 1. Sacroiliitis M46.1 2. Right hip pain M25.551 3. Cervical radiculopathy M54.12 4. Chronic pain syndrome G89.4 35 y/o M w/PMHx of cervical radiculopathy, bipolar (well controlled, no hospital visits recently, sees psychiatrist at [facility]) who presents for evaluation of left (note it has always been left, been documented as right in past notes) arm pain 12/30/20: minimal relief from C7-T1 EVAN 01/20/21: 90% relief with L paramedian C7-T1 EVAN with kenalog for 2 months 03/31/21: 70% relief with L paramedian C7-T1 EVAN with kenalog ongoing Meds: tried [place], tramadol, not very helpful. PO steroids not helpful gabapentin may be helpful, now at 100mg TID Imaging: cervical spine MRI shows foraminal narrowing at C5-6 without significant canal stenosis. Mild facet hypertrophy as well. EMG 12/2020 shows chronic C5-7 left sided radiculopathy The patient has had over 3 months of moderate to severe left arm pain with functional impairment and inadequate response to conservative care including NSAIDS and home exercise program/physical therapy. I have reviewed the imaging of the cervical spine and no red flags were identified. Plan: -R SIJ injection -increase gabapentin to 400mg PO TID -start meloxicam 15mg PO daily PRN -lumbar xrays ordered to rule out red flags -discussed steroids can cause manic or depressive episodes, informed him to discuss with psychiatrist if he has mood changes, but he agrees to proceed with this risk (and bipolar has been stable) -f/u 4 weeks after SIJ injection, will consider repeat L EVAN (see procedure note for repeating), if diminishing returns with EVAN will consider surgical consult I have checked an OARRS report on this patient today and there are no aberrancies noted in the prescribing history. The patient was advised that U.S. Food and Drug Administration (FDA) is warning that respiratory depression may occur in patients using gabapentin (Neurontin, Gralise, Horizant) or pregabalin (Lyrica, Lyrica CR) who have respiratory risk factors. These include the use of opioid pain medicines and other drugs that depress the central nervous system, and conditions such as chronic obstructive pulmonary disease (COPD) that reduce lung function. The elderly are also at higher risk. The patient was counseled that proper dietary changes and consistent participation in a home exercise plan can lead to weight loss. Weight loss can help to improve functionality in patients with chronic pain. * Aggie Sandoval RN - 04/13/2021 1:30 PM EDT HPI: Ajit Zhu Presents for evaluation and treatment of left arm and right hip pain. Worst of his pain today is right hip. Pain is described as Aching and is rated 4/10. Pain is increased with going up and down stairs, standing and walking and is relieved by heating pad. The patient admits to having numbness/tingling to left arm. he denies weakness . The patient denies bowel/bladder incontinence. The patient responded with significant relief to the most recent procedure which was left C7-T1 NELSON on 03/31/[address] Kilgore. He is still finding that the injection remains helpful and would like todiscuss hip pain today. Current Outpatient Medications Medication Sig buPROPion 150 MG tablet SR TAKE 2 TABLETS BY MOUTH IN THE MORNING cloNIDine 0.1 MG tablet Take 0.1 mg by mouth 2 times daily. gabapentin 300 MG capsule Take 1 capsule by mouth 3 times daily. lamoTRIgine 150 MG tablet TAKE 1 TABLET BY MOUTH IN THE MORNING Review of Systems: General: Denies fevers, chills, or night sweats Abdominal: Denies nausea, vomiting, diarrhea Respiratory: Denies cough, sputum production Genitourinary: Denies dysuria or frequency documented in this [facility]06-10-2021 Instructions* Patient Instructions* Aggie Sandoval RN - 04/13/2021 1:30 PM EDT Sacroiliac Joint Injection The sacroiliac joint is a large joint in your lower back and buttocks region. When the joint becomes painful, it can cause pain in its immediate region or it can refer pain into your groin, hip, buttock, or leg. A sacroiliac joint injection serves several purposes. First, by placing numbing medicine into the joint, the amount of immediate pain relief you experience will help confirm or deny the joint as a source of your pain. That is, if you obtain relief of your main pain while the joint is numb it means this joint is more than likely the source of pain. Furthermore, steroids may be injected into the joint to reduce inflammation, which on many occasions can provide long-term relief. How is the procedure performed? The area to be injected will be cleansed with an aseptic solution to prevent infection. The procedure is done under fluoroscopy (live x-ray guidance) to confirm needle placement and deliver the medication to the precise location. What should I expect and what should I do after the procedure? If the source of your pain is coming from these joints, you should have pain relief for a period oftwo to four hours after the injection. On occasion, you may feel numb or somewhat weak in your leg for a few hours following the procedure. This is due to the local anesthetic that was used during the procedure and should go away after a couple of hours. Sometimes your pain may get slightly worse as the local anesthetic wears off before the steroid becomes effective. You should try to reproduce your pain (do things that would normally increase your pain) immediately following the injection and for two hours thereafter. You will need to record how you feel for the first two hours and bring this with you to your follow up visit. The next day you should be able to resume your normal daily activities that you were doing prior to the procedure. What are the risks and side effects? With any procedure there can be risks, side effects and complications. These vary depending on where the procedure was done. Whenever the integrity of the skin is broken there is a risk for infectionand soreness. There is also the potential for more numbness than expected depending on the spread of local anesthetic. Bleeding, headaches and nerve damage are also possible complications of the procedure. However, all the complications are extremely rare. documented in this [facility]2021 History of Present illness Narrative* Benji Kilgore MD - 03/31/2021 11:45 AM EDT Procedures PROCEDURE: Left C7-T1 epidural steroid injection under fluoroscopy ATTENDING PHYSICIAN:Benji Kilgore MD PRE-PROCEDURE DIAGNOSIS: Cervical Radiculitis Post Procedure Diagnosis: Same INDICATIONS: neck pain with radiation to left upper extremity ANESTHESIA: Local CONSENT: The patient was given a verbal description of the intended procedure including the risk and benefits of the procedure. The patient was then able to provide written informed consent for the above procedure. UNIVERSAL PROTOCOL/TIMEOUT: Preprocedure verification is complete- patient verified and consents confirmed. PROCEDURE DETAILS: The patient was placed in the prone position on a fluoroscopy table. The patient's cervical spine was prepped and draped in the usual sterile fashion using Hibiclens prep. A C-arm Fluoroscope was brought into the field and used to obtain an AP radiograph of the cervical spine. The vertebral end plates were squared off fluoroscopically. The C7-T1 interspace was identified. The skin and subcutaneous tissue overlying this target was anesthetized using 3 ml of 1% Lidocaine. Thru this anesthetized tissue a 20 G 3.5 inch straight tuohy needle was advanced under intermittent fluoroscopic guidance to make contact with the ligamentum flavum. The needle was then advanced into the epidural space using a YADI technique. The needle depth was 7.5 cm. The patient did not have any pain or paresthesia at this time. Then after negative aspiration for blood, CSF, or any other body fluid 0.5 ml of Omnipaque 300 contrast media was injected. A lateral radiograph confirmed posterior epidural spread. An AP radiograph was taken, and epidural spread was noted. No intrathecal spread was noted on either AP or lateral. No signs or symptoms of intrathecal spread were noted. AP radiograph was used to confirm exclusive epidural spread in the epidural space up to C5-6. Then after negative aspiration for blood, CSF, or any other body fluid, 40 mg kenalog with 1.5 mL normal saline was injectedslowly. The patient did not have any pain or paresthesia at this time. The needle was then flushed with 0.2mL of 1% lidocaine and then needle was removed. The patient was cleansed and band-aid dressings were applied. The patient was observed for 20 minutes before being discharged home in good condition. COMPLICATIONS: The patient tolerated the procedure well with no complications. PLAN :Follow-up at next scheduled procedure or follow up visit. Note contralateral oblique does notprovide appropriate visualization of the epidural space, if I were to repeat would rely on lateral imaging (as noted above and in previous procedure). * Luis Ortiz RN - 03/31/2021 11:45 AM EDT PHYSICIAN: Dr. Kj Kilgore SCRUB: Mitchel Juares RN. LOGISTICS SOLUTION MANAGER: Gely AYERS. RT: Cedrick RT. Site cleansed with Hibiclens. documented in this [facility]03-15-2021 Evaluation + Plan note Future Scheduled Tests Laboratory* Lipid Profile 01/16/21 * Complete Metabolic Panel 01/16/21 [facility] Evaluation + Plan note Future Appointments Appointment Date:12/13/2021 03:15:00 PM Scheduled Provider:AG MCGEE JR, MD Location:[facility] Appointment Type:GS OV Follow Up Future Scheduled Tests Laboratory* Lipid Profile 01/16/21 * Complete Metabolic Panel 01/16/21 [facility] Evaluation + Plan note Future Appointments Appointment Date:04/15/2023 08:30:00 AM Scheduled Provider:AV BERMUDEZ MD Location:[facility] PM Appointment Type:PM MBA INTERN [facility] Evaluation + Plan note Future Appointments Appointment Date:09/23/2023 02:15:00 PM Scheduled Provider:MIGUEL CHA MD Location:[facility] Appointment Type:NS [facility] Evaluation + Plan note Future Appointments Appointment Date:11/13/2023 11:30:00 AM Scheduled Provider:MIGUEL CHA MD Location:[facility] Appointment Type:NS [facility] Evaluation + Plan note Future Appointments Appointment Date:12/16/2023 11:15:00 AM Scheduled Provider:MIGUEL CHA MD Location:[facility] Appointment Type:NS OV [facility] Evaluation + Plan note Future Appointments Appointment Date:01/20/2024 11:45:00 AM Scheduled Provider: Location:[facility] Appointment Type:NS [facility] evaluation + Plan note Future Appointments Appointment Date:02/03/2024 10:45:00 AM Scheduled Provider: Location:[facility] Appointment Type:NS OV Appointment Date:02/26/2024 01:00:00 PM Scheduled Provider: Location:[facility] Appointment Type:NS [facility] evaluation + Plan note Future Appointments Appointment Date:02/26/2024 01:00:00 PM Scheduled Provider: Location:[facility] Appointment Type:NS [facility] evaluation note* Diagnosis Cervical radiculopathy- Primary Brachial neuritis or radiculitis nos [facility]* Diagnosis Sacroiliitis- Primary Sacroiliitis, not elsewhere classified Right hip pain Pain in joint, pelvic region and thigh Cervical radiculopathy Brachial neuritis or radiculitis nos Chronic pain syndrome [facility]* Diagnosis Sacroiliitis- Primary Sacroiliitis, not elsewhere classified [facility]* Diagnosis Cervical facet syndrome- Primary Other symptoms referable to back Cervical radiculopathy Brachial neuritis or radiculitis nos Chronic pain syndrome Right hip pain Pain in joint, pelvic region and thigh Sacroiliitis Sacroiliitis, not elsewhere classified [facility]* Diagnosis Chronic pain syndrome Myofascial pain Mylagia and myositis, unspecified [facility]* Diagnosis Cervical radiculopathy- Primary Brachial neuritis or radiculitis nos Polyneuropathy Unspecified hereditary and idiopathic peripheral neuropathy Myofascial pain Mylagia and myositis, unspecified [facility]* Diagnosis Occipital neuralgia of left side- Primary Cervical facet syndrome Other symptoms referable to back Myofascial pain Mylagia and myositis, unspecified Cervical radiculopathy Brachial neuritis or radiculitis nos Chronic pain syndrome Sacroiliitis Sacroiliitis, not elsewhere classified [facility]* Diagnosis Compliance with medication regimen- Primary Chronic pain syndrome Cervical facet syndrome Other symptoms referable to back Occipital neuralgia of left side Myofascial pain Mylagia and myositis, unspecified [facility]* Diagnosis Myofascial pain- Primary Mylagia and myositis, unspecified [facility]* Diagnosis RLQ abdominal pain- Primary Abdominal pain, right lower quadrant [facility]* Diagnosis Pain, dental- Primary Unspecified disorder of the teeth and supporting structures Left facial pain Headache [facility] Diagnosis Acute bilateral low back pain without sciatica- Primary [facility] noteNo assessment information availableWGreene [facility] Work Phone: Evaluation note* Diagnosis Cervical radiculopathy- Primary Brachial neuritis or radiculitis nos [facility]* Diagnosis Acute pancreatitis without infection or necrosis, unspecified pancreatitis type- Primary Acute left flank pain Abdominal pain, unspecified site [facility]* Diagnosis Acute on chronic low back pain- Primary [facility] Narrative No data available for this section [facility] Hospital Discharge instructions No data available for this section [facility] Hospital Discharge instructions* Attachments The following attachments cannot be sent through Care Everywhere. * Back Pain (Slovenian) [facility]* Attachments The following attachments cannot be sent through Care Everywhere. * Cervical Radiculopathy (Slovenian) [facility]* Attachments The following attachments cannot be sent through Care Everywhere. * Flank Pain (Slovenian) * Pancreatitis (Slovenian) [facility]* Attachments The following attachments cannot be sent through Care Everywhere. * Low Back Pain: Do's and Don'ts ([facility]) (Slovenian) [facility] No data available for this section [facility] Reason for referral (narrative)* Consultation (Urgent) - New Request Specialty Diagnoses / Procedures Referred By Contact Referred To Contact Oral & Maxillofacial Surgery Diagnoses Pain, dental Left facial pain Gisella Irving APRN-IZABELLA [address] [place] [address] Referral ID Status Reason Start Date Expiration Date V isits Requested Visits Authorized [id number] New Request 09/09/2024 10/04/2025 1 1 [facility]No reason for referral information availableWGreene Memorial Hospital Work Phone: Reason for referral (narrative)* Radiology (Emergency) - Pending Review Specialty Diagnoses / Procedures Referred By Contac t Referred To Contact Procedures ECG Kacie Mena DO [address] [place] [address] Phone: tel: fax: Referral ID Status Reason Start Date Expiration Date V isits Requested Visits Authorized [id number] Pending Review 04/30/2025 05/25/2026 1 1 [facility] Summary Purpose Family History No Family History Records Found Relationship Condition Age at Onset Recorded Date/T robert brother Malignant neoplasm of colon 29 father Malignant neoplasm Unknown Kidney disorder Unknown Advance Directives No Advanced Directives Records FoundDocuments on File Type Date Recorded Patient Advanced Practice Nurse Psychotherapist Expl anation Advance Directives and Livin g Will 05/11/2020 11:08 PM Documents on File Type Date Recorded Patient Advanced Practice Nurse Psychotherapist Expl anation Advance Directives and Livin g Will 05/30/2020 8:31 PM Advance Directive Response Recorded Date/ Time Living Will No January 05, 2025 3:16pm Do you have a Healthcare Power of Health Benefits Specialist? No January 05, 2025 3:16pm Advance Directive Response Recorded Date/ Time Do you have a Healthcare Power of Health Benefits Specialist? No April 21, 2025 10:52am Living Will No January 05, 2025 3:16pm Do you have a Healthcare Power of Health Benefits Specialist? No January 05, 2025 3:16pm Advance Directive Response Recorded Date/ Time Do you have a Healthcare Power of Health Benefits Specialist? No April 21, 2025 10:52am Chief Complaint Chief Complaint Description Start Date right hand Preliminary chief co mplaint data, not yet signed by the author as of Assessments Diagnosis Acute chest wall pain Upper respiratory tract infection, unspecified type Diagnosis Nonintractable headache, unspecified chronicity pattern, unspecified headache type Chronic left shoulder pain Pain in joint, shoulder region Diagnosis Left shoulder pain, unspecified chronicity- Primary Diagnosis Neck pain Cervicalgia Acute pain of left shoulder Diagnosis Left upper extremity numbness- Primary Disturbance of skin sensation Degenerative disc disease, cervical Degeneration of cervical intervertebral disc Cervical radiculopathy Brachial neuritis or radiculitis nos Diagnosis Cervical radiculopathy- Primary Brachial neuritis or radiculitis nos Medication management Encounter for other specified aftercare Cervicalgia Neck pain Cervicalgia Bipolar 2 disorder Other bipolar disorders Diagnosis Cervical radiculopathy- Primary Brachial neuritis or radiculitis nos Diagnosis Cervical radiculopathy- Primary Brachial neuritis or radiculitis nos Neck pain Cervicalgia Myofascial pain Mylagia and myositis, unspecified Bipolar affective disorder, remission status unspecified Diagnosis Neck pain- Primary Cervicalgia Acute pain of left shoulder Left upper extremity numbness Disturbance of skin sensation Diagnosis Cervical radiculopathy- Primary Brachial neuritis or radiculitis nos Diagnosis Cervical radiculopathy- Primary Brachial neuritis or radiculitis nos Neck pain Cervicalgia Bipolar affective disorder, remission status unspecified Diagnosis Degenerative disc disease, cervical- Primary Degeneration of cervical intervertebral disc Neck pain (clinically improved from last visit) Cervicalgia Review of System There may be information available, but it has not been provided by the sender. History of Present Illness There may be information available, but it has not been provided by the sender. * Brad Bustillo, - 11/29/2020 9:15 AM EST 11/29/20 Subjective: Patient returns for reevaluation of his left upper extremity. He states he is having pain in the shoulder that radiates down to the hand at times and he is having some pain in the left side of his neck as well. Basically the pain is largely unchanged and the Kenalog injection I gave himdidn't help him. For pain he is taking [id number] Tylenol or ibuprofen. He still has a few [place] at home that I had given him and he is using them only for severe pain. He states he wants to avoid opioids if possible, but he will resort to them when pain is severe. Objective: Examination of the neck reveals a positive Spurling's maneuver when the head is extendedand side bent left, no palpable tenderness of the neck. Cervical rotation is normal in distance to the left and right, however, when he turns his head to the left he provokes pain the left shoulder region. The Spurling's maneuver actually caused pain to radiate down the entire left upper extremity. Examination of the left shoulder shows mild weakness for abduction and external rotation. He is having mild weakness for left biceps function and a questionable mild weakness for left wrist extension. I tested the bilateral shoulders, elbows, forearms, wrists and hands and that is the only weaknessnoted, but it was noted in several joints for the left upper extremity. Soft touch sensation and skin are entirely intact. Radial pulse +2/4 bilaterally. No restricted range of motion for the shoulders, elbows, forearms, wrists or hands bilaterally. He has entirely intact range of motion for the left rotator cuff with a negative Neer's test, negative crossed arm adduction test, negative Yergason's test. Diagnostic Studies: We discussed her MRI which was interpreted by the radiologist as showing minimal discogenic disease at C5-C6 without central spinal stenosis. There is, however, mild foraminal stenosis at that level. We discussed Dr. Webb's nerve conduction test and EMG which showed a mild chronic left C6 or C7 radiculopathy. In Dr. Webb's consult, he felt the patient was having acute manifestations of leftcervical radiculopathy in the left C6 distribution, and sensory loss was documented on the nerve conduction test. Medical Decision Making/Plan: It is readily apparent between Dr. Webb's examination and my examination today, the patient has had some significant symptoms over the last week. He states our exams exacerbate his pain quite a bit and it doesn't fully resolve, and I feel he is significantly symptomatic. I will talk with Dr. Webb and Dr. Alva about possible further interventions. I will institute a course of physical therapy with cervical traction to see if that benefits the patient. I have strongly advised him to stop smoking immediately as he may warrant surgical intervention down the road. By mutual agreement, I am going to see him back in 2 months' time. I did not refill his narcoticstoday, I would like him to take those extremely sparingly. Right now I chose not to refer him to the pain clinic and we are going to try to use [id number] pain relievers for the most part. Diagnosis: 1. Left upper extremity numbness 2. Degenerative disc disease, cervical 3. Cervical radiculopathy * Ramona Quigley - 11/29/2020 9:15 AM EST Review of Systems Constitutional: Negative for chills, fatigue and fever. Cardiovascular: Negative for leg swelling. Musculoskeletal: Positive for arthralgias, myalgias and neck pain. Negative for back pain and jointswelling. Skin: Negative for rash. Neurological: Positive for weakness and numbness. Hematological: Bruises/bleeds easily. documented in this encounter* Benji Kilgore MD - 12/22/2020 12:00 PM EST Symptoms Are you experiencing any symptoms? No; If No, then that ends the assessment. Nurse Note: Review of Systems Constitutional: Positive for appetite change and fatigue. Respiratory: Positive for shortness of breath. Gastrointestinal: Positive for diarrhea. Endocrine: Positive for cold intolerance. Neurological: Positive for headaches. Psychiatric/Behavioral: Positive for sleep disturbance. The patient is nervous/anxious. Nursing Assessment: Physical Exam Thank you for the referral of Ajit Zhu. As you know, he is a very pleasant 35 y.o. male who presents with Left side neck and Left shoulder pain. The patient began to notice this pain generator 3months ago. 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 Pain is described as Aching and Sharp and is rated 7/10. Pain isincreased with ant type of movement and is relieved by nothing. The patient states that pain is worst at night. The patient admits to having numbness/tingling in left arm. Ajit admits to having weakness in left arm. The patient denies bowel/bladder incontinence. Treatment modalities that have been used include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 for leg swelling. Musculoskeletal: Positive for arthralgias, myalgias and neck pain. Negative for back pain and jointswelling. Skin: Negative for rash. Neurological: Positive for weakness and numbness. Hematological: Does not bruise/bleed easily. documented in this encounter* Julio Garcia RN - 01/20/2021 1:30 PM EDT PHYSICIAN - Dr.Arjun Kilgore SCRUB - Yariel AYERS. LOGISTICS SOLUTION MANAGER - Shagufta AYERS. RT - Nicole Byers RT. METAL SANDER - N/A. Site cleansed with hibiclens. * Benji Kilgore MD - 01/20/2021 1:30 PM EDT Procedures PROCEDURE: Left C7-T1 epidural steroid injection under fluoroscopy ATTENDING PHYSICIAN:Benji Kilgore MD PRE-PROCEDURE DIAGNOSIS: Cervical Radiculitis Post Procedure Diagnosis: Same INDICATIONS: neck pain with radiation to left upper extremity ANESTHESIA: Local CONSENT: The patient was given a verbal description of the intended procedure including the risk and benefits of the procedure. The patient was then able to provide written informed consent for the above procedure. UNIVERSAL PROTOCOL/TIMEOUT: Preprocedure verification is complete- patient verified and consents confirmed. PROCEDURE DETAILS: The patient was placed in the prone position on a fluoroscopy table. The patient's cervical spine was prepped and draped in the usual sterile fashion using Hibiclens prep. A C-arm Fluoroscope was brought into the field and used to obtain an AP radiograph of the cervical spine. The vertebral end plates were squared off fluoroscopically. The C7-T1 interspace was identified. The skin and subcutaneous tissue overlying this target was anesthetized using 3 ml of 1% Lidocaine. Thru this anesthetized tissue a 20 G 3.5 inch straight tuohy needle was advanced under intermittent fluoroscopic guidance to make contact with the ligamentum flavum. The needle was then advanced into the epidural space using a YADI technique. The needle depth was 7.5 cm. The patient did not have any pain or paresthesia at this time. Then after negative aspiration for blood, CSF, or any other body fluid 0.5 ml of Omnipaque 300 contrast media was injected. A lateral radiograph confirmed posterior epidural spread. An AP radiograph was taken, and partial subdural in addition to epidural spread was noted. No intrathecal spread was noted on either AP or lateral. No signs or symptoms of intrathecal spread were noted. The needle was retracted 1 mm and 0.5 mL of contrast was injected again to confirm exclusive epidural spread. AP radiograph was used to confirm exclusive epidural spread in the epidural space up to C5-6. Then after negative aspiration for blood, CSF, or any other body fluid, 40 mg kenalog with 1.5 mL normal saline was injected slowly. The patient did not have any pain or paresthesia at this time. The needle was then flushed with 0.2mL of 1% lidocaine and then needle was removed. The patient was cleansed and band-aid dressings were applied. The patient was observed for 20 minutes b efore being discharged home in good condition. COMPLICATIONS: The patient tolerated the procedure well with no complications. PLAN :Follow-up at next scheduled procedure or follow up visit. Note contralateral oblique does notprovide appropriate visualization of the epidural space, if I were to repeat would rely on lateral imaging (as noted above and in previous procedure). documented in this encounter* Benji Kilgore MD - 02/02/2021 10:45 AM EDT Symptoms Are you experiencing any symptoms? No; If No, then that ends the assessment. HPI: Ajit Ramo Zhu Presents for evaluation and treatment of neck . Pain is described as dull and is rated 1/10. Pain is increased with lifting objects above head and turning head to left and is relieved by injection. The patient denies having numbness/tingling to left arm but does notice weakness. The patient denies bowel/bladder incontinence. The patient responded with minimal relief to the most recent procedure which was left C7-T1 NELSON on 01/20/[address] Kilgore. Current Outpatient Medications Medication Sig buPROPion 150 MG tablet SR TAKE 2 TABLETS BY MOUTH IN THE MORNING cloNIDine 0.1 MG tablet Take 0.1 mg by mouth 2 times daily. gabapentin 100 MG capsule Take 1 capsule by mouth 3 times daily. lamoTRIgine 150 MG tablet TAKE 1 TABLET BY MOUTH IN THE MORNING Review of Systems: General: Denies fevers, chills, or night sweats Abdominal: Denies nausea, vomiting, diarrhea Respiratory: Denies cough, sputum production Genitourinary: Denies dysuria or frequency Physical Examination: Vitals: 02/02/21 1053 BP: 120/75 Pulse: 83 Resp: 20 Constitutional The patient is awake, alert, well developed, well nourished and well groomed. The patient is pleasant and cooperative. The patient is a good historian and is very helpful with the history and physical examination. No lesions noted on face. Neurologic Cranial Nerves 2-12 were tested and are grossly intact. The deep tendon reflexes of the bilateral upper extremity were intact. Plantar reflexes (Babinski): toes are downgoing. Cerebellar function is normal; Romberg's test is negative. The gait is normal. Sensory testing for pain (pinprick), light touch in C5-C8 dermatome, and proprioception is decreased in the left upper extremity. Spurlings positive on left side Psychiatric The patient is oriented to person, place, and time. Speech is fluent and words are clear. Thought processes are coherent, insight is good. There are no obsessive, compulsive, phobic or delusional thoughts; there are no illusions or hallucinations. The patient's fund of knowledge: awareness of current events and past history is appropriate for age. The patient's higher cognitive functions are intact. The patient's mood is neutral and the affect appropriate; there are no loose associations. MSK The patient has normal cervical spine alignment. The patient has decreased range of motion in extension. The patient has decreased range of motion in flexion. The patient has normal range of motion in right and left lateral bend. The patient has normal range of motion in right and left rotation. Cervical facet loading is positive on right side. There is mild tenderness to palpation over the cervical spine. Tenderness to palpation is located in the left cervical spine. Spurling test is positive for left arm pain. Arm pain is reproduced in the left arm. Muscle strength is 5/5 in the Bilateral upper extremity. Assessment: ICD-10-CM 1. Cervical radiculopathy M54.12 2. Neck pain M54.2 3. Bipolar affective disorder, remission status unspecified F31.9 35 y/o M w/PMHx of cervical radiculopathy, bipolar (well controlled, no hospital visits recently, sees psychiatrist at [facility]) who presents for evaluation of left (note it has always been left, been documented as right in past notes) arm pain 12/30/20: minimal relief from C7-T1 EVAN 01/20/21: 90% relief with L paramedian C7-T1 EVAN with kenalog Meds: tried [place], tramadol, not very helpful. PO steroids not helpful gabapentin may be helpful, now at 100mg TID Imaging: cervical spine MRI shows foraminal narrowing at C5-6 without significant canal stenosis. Mild facet hypertrophy as well. EMG 12/2020 shows chronic C5-7 left sided radiculopathy The patient has had over 3 months of moderate to severe left arm pain with functional impairment and inadequate response to conservative care including NSAIDS and home exercise program/physical therapy. I have reviewed the imaging of the cervical spine and no red flags were identified. Plan: -repeat left paramedian C7-T1 EVAN with kenalog 60mg with 1mL of NS in 3 months, I will need to check a lateral for final approach NOT contralateral oblique -continue gabapentin 100mg TID, refills provided -discussed steroids can cause manic or depressive episodes, informed him to discuss with psychiatrist if he has mood changes, but he agrees to proceed with this risk (and bipolar has been stable) -f/u 2 weeks after injection, at this point if future ESIs do not improve pain, will need to consider surgical consult (Has already seen Dr Bustillo for left shoulder evaluation and Dr. Webb for EMG and evaluation for radiculopathy) I have checked an O[facility]RS report on this patient today and there are no aberrancies noted in the prescribing history. The patient was advised that U.S. Food and Drug Administration (FDA) is warning that respiratory depression may occur in patients using gabapentin (Neurontin, Gralise, Horizant) or pregabalin (Lyrica, Lyrica CR) who have respiratory risk factors. These include the use of opioid pain medicines and other drugs that depress the central nervous system, and conditions such as chronic obstructive pulmonary disease (COPD) that reduce lung function. The elderly are also at higher risk. * Aggie Sandoval RN - 02/02/2021 10:45 AM EDT HPI: Ajit Zhu Presents for evaluation and treatment of neck . Pain is described as dull and is rated 1/10. Pain is increased with lifting objects above head and turning head to left and is relieved by injection. The patient denies having numbness/tingling to left arm but does notice weakness. The patient denies bowel/bladder incontinence. The patient responded with minimal relief to the most recent procedure which was left C7-T1 NELSON on 01/20/[address] Kilgore. Current Outpatient Medications Medication Sig buPROPion 150 MG tablet SR TAKE 2 TABLETS BY MOUTH IN THE MORNING cloNIDine 0.1 MG tablet Take 0.1 mg by mouth 2 times daily. gabapentin 100 MG capsule Take 1 capsule by mouth 3 times daily. lamoTRIgine 150 MG tablet TAKE 1 TABLET BY MOUTH IN THE MORNING Review of Systems: General: Denies fevers, chills, or night sweats Abdominal: Denies nausea, vomiting, diarrhea Respiratory: Denies cough, sputum production Genitourinary: Denies dysuria or frequency * Arlette Marquez - 02/02/2021 10:45 AM EDT Symptoms Are you experiencing any symptoms? No; If No, then that ends the assessment. documented in this encounter* Brad Bustillo DO - 02/06/2021 1:30 PM EDT 02/06/21 Subjective: Patient returns for reevaluation of his left shoulder/left sided neck pain and states at this point it is just now confirmed to the base of the neck after he received treatment at the pain clinic. He is not having any problems with shoulder movement at all and he has no pain or numbnessthat radiates all the way down the left upper extremity any longer. Objective: Examination of the neck reveals mild tenderness at the base of the neck from C5 down to C7, mostly on the left side and in the midline. No significant spasm. Negative Spurling's maneuver. Normal range of motion for left and right cervical rotation without pain or apprehension. Examination of the left shoulder shows intact strength and range of motion in all planes of motion of the left rotator cuff. No tenderness of the left shoulder or other remarkable finding. Medical Decision Making/Plan: This patient had a nerve conduction test and EMG which showed a mild chronic left C6/C7 radiculopathy, then he went to see the pain clinic. He underwent an epidural steroid injection and was placed on gabapentin and he is having improvement, although not total resolution of pain. After discussion with him that I feel he no longer needs to see me and he should continue with the pain clinic, he verbalized understanding. He understands this looks like a cervical radiculopathy and cervical degenerative disc disease phenomenon. I promised to message Dr. Kilgore about the patient's continued neck pain and I will leave it to Dr. Kilgore to see if modifications of any treatment that he has started are warranted. By mutual agreement, I am going to see him back on an as needed basis. Diagnosis: 1. Degenerative disc disease, cervical 2. Neck pain (clinically improved from last visit) * Joceline Cheney - 02/06/2021 1:30 PM EDT Review of Systems Constitutional: Negative for chills, fatigue and fever. Cardiovascular: Negative for leg swelling. Musculoskeletal: Negative for arthralgias, back pain, joint swelling, myalgias and neck pain. Skin: Negative for rash. Neurological: Negative for weakness and numbness. Hematological: Does not bruise/bleed easily. documented in this encounter Discharge Instructions * Instructions* Austin Elias MD - 05/11/2020 Return to the ED for worsening condition, not tolerating fluids, difficulty breathing, or any otherworrisome symptoms. * Attachments The following attachments cannot be sent through Care Everywhere. * URI (Upper Respiratory Infection) (Slovenian) * Chest Pain: Musculoskeletal (Slovenian) documented in this encounter* Attachments The following attachments cannot be sent through Care Everywhere. * Headache (Slovenian) documented in this encounter* Instructions* Etta Palomino PA-C - 10/12/2020 Take tylenol in addition to the prescribed medication. Follow up with Dr. Rick. * Attachments The following attachments cannot be sent through Care Everywhere. * Shoulder Pain (Slovenian) documented in this encounter* Instructions* Etta Palomino PA-C - 10/12/2020 Take tylenol in addition to the prescribed medication. Follow up with Dr. Rick. * Attachments The following attachments cannot be sent through Care Everywhere. * Shoulder Pain (Slovenian) documented in this encounter Reason for Referral Status Reason Specialty Diagnoses / Procedures Referred By Contact Referred To Contact New Request Orthopaedics Diagnoses Left shoulder pain, unspecified chronicity Etta Palomino PA-C [id number] Av Rick MD [address] [place] [id number] Status Reason Specialty Diagnoses / Procedures Referred By Contact Referred To Contact Auth Not Needed Physical Therapy Diagnoses Left upper extremity numbness Degenerative disc disease, cervical Brad Bustillo, [address] [id number] Dereck Restrepo, [address] [place] [address] Scheduling Instructions . Status Reason Specialty Diagnoses / Procedures Re ferred By Contact Referred To Contact New Request Diagnoses Neck pain Cervical radiculopathy Benji Kilgore MD [address] [place] [address] Scheduling Instructions Please PA and schedule: C7-T1 epidural steroid injection Status Reason Specialty Diagnoses / Procedures Referred By Contact Referred To Contact Auth Not Needed Diagnoses Neck pain Cervical radiculopathy Benji Kilgore MD [address] [place] [address] Scheduling Instructions Please PA and schedule: RIGHT C7-T1 (use Kenalog per Dr. Kilgore) Status Reason Specialty Diagnoses / Procedures Referred By Contact Referred To Contact New Request Physical Therapy Diagnoses Neck pain Acute pain of left shoulder Left upper extremity numbness Brad Bustillo, DO [address] [id number] Zach Webb MD [address] [place] [address] Status Reason Specialty Diagnoses / Procedures Re ferred By Contact Referred To Contact New Request Diagnoses Cervical radiculopathy Benji Kilgore MD [address] [place] [address] Scheduling Instructions Please PA and schedule: left C7-T1 parasaggital steroid injection Status Reason Specialty Diagnoses / Procedures Referred By Contact Referred To Contact Auth Not Needed Diagnoses Cervical radiculopathy Benji Kilgore MD [address] [place] [address] Scheduling Instructions Please PA and schedule:Left C7-T1 NELSON with kenalog 60 and 1 mL 0.9 NS Status Reason Specialty Diagnoses / Procedures Referred By Contact Referred To Contact Auth Not Needed Diagnoses Sacroiliitis Benji Kilgore MD [address] [phone] Scheduling Instructions Please PA and schedule: right SIJI Specialty Diagnoses / Procedures Referred By Contac t Referred To Contact Diagnoses Cervical facet syndrome Katey Medina, [employer]GE[employer]ER[employer] TECHNICIAN [address] [place] [address] Referral ID Status Reason Start Date Expiration Date V isits Requested Visits Authorized [id number] New Request 09/12/2021 10/07/2022 1 1 Scheduling Instructions Please PA and schedule: B/L C5-6, C6-7 FB #1 Referral ID Status Reason Start Date Expiration Date V isits Requested Visits Authorized [id number] New Request 09/12/2021 10/07/2022 1 1 Scheduling Instructions Please PA and schedule: B/L C5-6, C6-7 FB #2 Specialty Diagnoses / Procedures Referred By Contac t Referred To Contact Diagnoses Occipital neuralgia of left side Benji Kilgore MD [address] [place] [address] Referral ID Status Reason Start Date Expiration Date V isits Requested Visits Authorized [id number] New Request 02/08/2022 03/05/2023 1 1 Scheduling Instructions Please PA and schedule: left greater occipital nerve block Specialty Diagnoses / Procedures Referred By Contac t Referred To Contact Diagnoses Myofascial pain Katey Medina, [employer]AL SERGEANT[employer]ERGL[employer] TECHNICIAN [address] [place] [address] Referral ID Status Reason Start Date Expiration Date V isits Requested Visits Authorized [id number] Auth Not Needed 06/11/2022 07/06/2023 1 1 Scheduling Instructions Please PA and schedule: R trapezius and R rhomboid TPI Instructions * Patient Instructions* Dianna Juares, ANDRIA - 01/20/2021 1:30 PM EDT [facility] WHAT TO EXPECT AFTER A PROCEDURE Follow up appointment: Call the office ([phone]) if you have any questions or develop the following: ? A fever of 101.2 degrees or higher ? An unusual headache, worsening of an existing headache, or visual changes ? Marked increase in neck or back pain ? Trouble urinating If you lose control of your bowel, bladder or legs, go to the Emergency Room. Keep dressing dry and intact for 24 hours, then remove. If you are diabetic, steroids used in some procedures may raise your blood sugar. Call your family doctor if your blood sugar is greater than 250. Follow up with your family doctor 3-7 days after having this procedure. Specific procedure information: ___Epidural Steroid Injection: Patient may feel numbness in legs or arms, depending on the procedure site. Pain may return 4-6 hours after local anesthetic wears off. Pain may worsen in the first 48 hours and may not fully improve for 7-10 days. Avoid strenuous activity the day of procedure. Patient may return to work the next day. ____Facet Joint Injection: This is a diagnostic procedure. If these joints are the source of pain, there may be relief for 2-4 hours. For the first 2 hours, do activities that would normally cause you pain in this area. Keep track if it is a little better, a lot better or no better during this 2 hours. Discuss this information with the doctor at the follow up visit to determine the next step in treatment. Do not sleep or take pain medication for 2 hours after the procedure. Avoid strenuous activity the day of procedure. Patient may return to work the same day. ____Nerve Root Block Injection: Patient may experience immediate relief after the procedure. The patient may feel numbness in the legs or arms, depending on the procedure site. Pain may return four to six hours after the local anesthetic wears off. Pain may worsen in the first 48 hours and may not fully improve for 3-4 days. Avoid strenuous activity the day of procedure. Patient may return to work the next day. ____Sacroiliac (SI) Joint Injection Do activities that would normally cause you pain for the first two hours after the procedure, keep track of how much relief you have and how long it lasts. You will discuss this with the doctor at the follow up visit. Patients may not experience full improvement for 2-3 days after the procedure. Avoid strenuous activity the day of procedure. Patient may return to work the next day. ____Radiofrequency Ablation: The patient should take it easy for a day or so after this procedure. They may have inflammation and/or pain at the procedure site. Apply ice to the affected area. Perform normal activities as tolerated. It may take up to 12 weeks to notice the full benefit of this procedure. If you have any further concerns or questions don t hesitate to call us at . Thank you, [facility] documented in this encounter* Patient Instructions* Luis Ortiz RN - 12/30/2020 2:45 PM EST [facility] WHAT TO EXPECT AFTER A PROCEDURE Follow up appointment: Call the office ([phone]) if you have any questions or develop the following: ? A fever of 101.2 degrees or higher ? An unusual headache, worsening of an existing headache, or visual changes ? Marked increase in neck or back pain ? Trouble urinating If you lose control of your bowel, bladder or legs, go to the Emergency Room. Keep dressing dry and intact for 24 hours, then remove. If you are diabetic, steroids used in some procedures may raise your blood sugar. Call your family doctor if your blood sugar is greater than 250. Follow up with your family doctor 3-7 days after having this procedure. Specific procedure information: ___Epidural Steroid Injection: Patient may feel numbness in legs or arms, depending on the procedure site. Pain may return 4-6 hours after local anesthetic wears off. Pain may worsen in the first 48 hours and may not fully improve for 7-10 days. Avoid strenuous activity the day of procedure. Patient may return to work the next day. ____Facet Joint Injection: This is a diagnostic procedure. If these joints are the source of pain, there may be relief for 2-4 hours. For the first 2 hours, do activities that would normally cause you pain in this area. Keep track if it is a little better, a lot better or no better during this 2 hours. Discuss this information with the doctor at the follow up visit to determine the next step in treatment. Do not sleep or take pain medication for 2 hours after the procedure. Avoid strenuous activity the day of procedure. Patient may return to work the same day. ____Nerve Root Block Injection: Patient may experience immediate relief after the procedure. The patient may feel numbness in the legs or arms, depending on the procedure site. Pain may return four to six hours after the local anesthetic wears off. Pain may worsen in the first 48 hours and may not fully improve for 3-4 days. Avoid strenuous activity the day of procedure. Patient may return to work the next day. ____Sacroiliac (SI) Joint Injection Do activities that would normally cause you pain for the first two hours after the procedure, keep track of how much relief you have and how long it lasts. You will discuss this with the doctor at the follow up visit. Patients may not experience full improvement for 2-3 days after the procedure. Avoid strenuous activity the day of procedure. Patient may return to work the next day. ____Radiofrequency Ablation: The patient should take it easy for a day or so after this procedure. They may have inflammation and/or pain at the procedure site. Apply ice to the affected area. Perform normal activities as tolerated. It may take up to 12 weeks to notice the full benefit of this procedure. If you have any further concerns or questions don t hesitate to call us at . Thank you, [facility] documented in this encounter Chief Complaint and Reason for Visit Chief Complaint Admit Date flank pain January 05, 2025 11:2 8am Chief Complaint Admit Date flank pain January 05, 2025 11:2 8am SHOULDER April 21, 2025 10:5 2am Chief Complaint Admit Date SHOULDER April 21, 2025 10:5 2am CERVICAL SPINE May 13, 2025 11:2 3am RM 2 May 13, 2025 11:4 0am Reason for Visit Admit Date Cervical myelopathy with cervical radicu lopathy May 13, 2025 11:23am Degenerative disc disease, cervical May 13, 2025 11:23am Spondylolisthesis of cervical region May 11:23am Chief Complaint Admit Date SHOULDER April 21, 2025 10:5 2am CERVICAL SPINE May 13, 2025 11:2 3am RM 2 May 13, 2025 11:4 0am CERVICAL PAIN July 08, 2025 7:42am CERVICAL SPINE July 22, 2025 8:43am Reason for Visit Admit Date Cervical myelopathy with cervical radicu lopathy May 13, 2025 11:23am Degenerative disc disease, cervical May 13, 2025 11:23am Spondylolisthesis of cervical region May 11:23am Cervical myelopathy with cervical radicu lopathy July 22, 2025 8:43am Degenerative disc disease, cervical Sept ember 2024 8:43am Spondylolisthesis of cervical region Sep tember 2024 8:43am Additional Source Comments (unrecognized sect ion and content) No Status Records FoundNo Status Records FoundNo Status Records FoundNo Status Records FoundNo Status Records FoundNo Status Records FoundNo Status Records FoundNo Status Records FoundNo Status Records FoundNo Status Records FoundNo Status Records FoundNo Status Records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 right upper extremity. Spurlings positive on right side Psychiatric Normal Psych: The patient is oriented to person, place, and time. Speech is fluent and words are clear. Thought processes are coherent, insight is good. There are no obsessive, compulsive, phobic or delusional thoughts; there are no illusions or hallucinations. The patient's fund of knowledge: awareness of current events and past history is appropriate for age. The patient's higher cognitive functions are intact. The patient's mood is neutral and the affect appropriate; there are no loose associations. Assessment: ICD-10-CM 1. Cervical radiculopathy M54.12 Plan: Proceed with EVAN documented in this encounter HPI: This 35 y.o. male presents for treatment of chronic neck, upper arm, forearm Pain. Current Outpatient Medications: buPROPion 150 MG tablet SR, TAKE 2 TABLETS BY MOUTH IN THE MORNING, Disp: , Rfl: cloNIDine 0.1 MG tablet, Take 0.1 mg by mouth 2 times daily., Disp: , Rfl: [START ON 01/21/2021] gabapentin 100 MG capsule, Take 1 capsule by mouth 3 times daily., Disp: 90 capsule, Rfl: 0 lamoTRIgine 150 MG tablet, TAKE 1 TABLET BY MOUTH IN THE MORNING, Disp: , Rfl: Current Facility-Administered Medications: iohexol (OMNIPAQUE) 300 MG/ML vial 3 mL, 3 mL, Other, Once (Outpt Clinic), Benji Kilgore MD lidocaine 1% (PF) (XYLOCAINE MPF) 10 mL syringe, 6 mL, Other, Once (Outpt Clinic), Benji Kilgore MD sodium chloride (PF) 0.9% injection 2 mL, 2 mL, Other, Once (Outpt Clinic), Benji Kilgore MD triamcinolone (KENALOG-40) injection 40 mg, 40 mg, Other, Once (Outpt Clinic), Benji Kilgore MD Past Medical History: Diagnosis Date Bipolar disorder Past Surgical History: Procedure Laterality Date KNEE SURGERY Right ORIF WRIST Left SHOULDER SURGERY Left No family history on file. Review of Systems: General: Denies fevers, chills, or night sweats Abdominal: Denies nausea, vomiting, diarrhea Respiratory: Denies cough, sputum production Genitourinary: Denies dysuria or frequency There were no vitals filed for this visit. Review of Systems: Physical Examination: There were no vitals filed for this visit. Constitutional The patient is awake, alert, well developed, well nourished and well groomed. The patient is pleasant and cooperative. The patient is a good historian and is very helpful with the history and physical examination. Musculoskeletal The patient has normal cervical spine alignment. The patient has decreased range of motion in extension. The patient has decreased range of motion in flexion. The patient has normal range of motion in right and left lateral bend. The patient has normal range of motion in right and left rotation. Cervical facet loading is positive on right side. There is mild tenderness to palpation over the cervical spine. Tenderness to palpation is located in the left cervical spine. Spurling test is positive for left arm pain. Arm pain is reproduced in the left arm. Muscle strength is 5/5 in the Bilateral upper extremity. Neurologic Cranial Nerves 2-12 were tested and are grossly intact. The deep tendon reflexes of the bilateral upper extremity were intact. Plantar reflexes (Babinski): toes are downgoing. Cerebellar function is normal; Romberg's test is negative. The gait is normal. Sensory testing for pain (pinprick), light touch in C5-C8 dermatome, and proprioception is decreased in the left upper extremity. Spurlings positive on left side Psychiatric Normal Psych: The patient is oriented to person, place, and time. Speech is fluent and words are clear. Thought processes are coherent, insight is good. There are no obsessive, compulsive, phobic or delusional thoughts; there are no illusions or hallucinations. The patient's fund of knowledge: awareness of current events and past history is appropriate for age. The patient's higher cognitive functions are intact. The patient's mood is neutral and the affect appropriate; there are no loose associations. Assessment: ICD-10-CM 1. Cervical radiculopathy M54.12 Plan: Proceed with EVAN documented in this encounter Care Teams (unrecognized sec tion and content) Novelty Maker Relationship Specialty Start Date End Date Alexa Griggs DO [address] [place] [address] PCP - General Hospitalist 02/02/21 Novelty Maker Relationship Specialty Start Date End Date JaredAlexa, DO [address] [place] [address] PCP - General Hospitalist 02/02/21 Novelty Maker Relationship Specialty Start Date End Date JaredAlexa disla, DO [address] [place] [address] PCP - General Hospitalist 02/02/21 Novelty Maker Relationship Specialty Start Date End Date JaredAlexa, DO [address] [place] [address] PCP - General Hospitalist 02/02/21 Novelty Maker Relationship Specialty Start Date End Date JaredAlexa, DO [address] [place] [address] PCP - General Hospitalist 02/02/21 Novelty Maker Relationship Specialty Start Date End Date Jared Alexa, DO [address] [facility] [place] [place] [address] PCP - General Hospitalist 02/02/21 Novelty Maker Relationship Specialty Start Date End Date JaredAlexa, DO [address] [place] [address] PCP - General Hospitalist 02/02/21 Novelty Maker Relationship Specialty Start Date End Date Alexa Griggs [address] [facility] [place] [place] [address] PCP - General Hospitalist 02/02/21 Novelty Maker Relationship Specialty Start Date End Date Mick Leung MD [address] [place] [id number] PCP - General Family Medicine 09/09/24 Novelty Maker Relationship Specialty Start Date End Date Mick Leung MD [address] [place] [address] PCP - General Family Medicine 09/09/24 Team Status: Active Member Role Status Dates No Primary Care Physician Primary Care Provider Active Team Status: Inactive Member Role Status Dates Dr. Ray Broussard MD Attending Provider Active Sta rt: January 05, 2025 End: January 05, 2025 Dr. Ray Broussard MD Emergency Provider Active Sta rt: January 05, 2025 End: January 05, 2025 No Primary Care Physician Primary Care Provider Active Start: January 05, 2025 End: January 05, 2025 Team Status: Inactive Member Role Status Dates No Primary Care Physician Primary Care Provider Active Start: February 11, 2025 End: February 11, 2025 Dr. Genesis Collazo MD Attending Provider Active Start: February 11, 2025 End: February 11, 2025 Dr. Genesis Collazo MD Referring Provider Active Start: February 11, 2025 End: February 11, 2025 Team Status: Active Member Role Status Dates Dr. Mick Leung MD Primary Care Provider Active Team Status: Inactive Member Role Status Dates Dr. Binh Mckee DO Emergency Provider Active S tart: April 21, 2025 End: April 21, 2025 Dr. Mick Leung MD Primary Care Provider Active Start: April 21, 2025 End: April 21, 2025 Novelty Maker Relationship Specialty Start Date End Date Mick Leung MD PCP - General Family Medicine 09/09/24 Team Status: Active Member Role/Relationship Status Dates Dr. Mick Leung MD Primary Care Provider Active Team Status: Inactive Member Role/Relationship Status Dates No Primary Care Physician Primary Care Provider Active Start: February 11, 2025 End: February 11, 2025 Dr. Genesis Collazo MD Attending Provider Active Start: February 11, 2025 End: February 11, 2025 Dr. Genesis Collazo MD Referring Provider Active Start: February 11, 2025 End: February 11, 2025 Team Status: Inactive Member Role/Relationship Status Dates Dr. Binh Mckee DO Emergency Provider Active S tart: April 21, 2025 End: April 21, 2025 Dr. Mick Leung MD Primary Care Provider Active Start: April 21, 2025 End: April 21, 2025 Team Status: Active Member Role/Relationship Status Dates Dr. Mick Leung MD Primary Care Provider Active Start: May 13, 2025 Dr. Mick Leung MD Referring Provider Active Start: May 13, 2025 MORGAN Ordonez Attending Provider Active Star t: May 13, 2025 Team Status: Inactive Member Role/Relationship Status Dates Dr. Mick Leung MD Primary Care Provider Active Start: May 13, 2025 End: May 13, 2025 Dr. Weston Gibbs MD Attending Provider Active S tart: May 13, 2025 End: May 13, 2025 Team Status: Inactive Member Role/Relationship Status Dates Dr. Mick Leung MD Primary Care Provider Active Start: May 13, 2025 End: May 13, 2025 Dr. Mick Leung MD Referring Provider Active Start: May 13, 2025 End: May 13, 2025 MORGAN Ordonez Attending Provider Active Star t: May 13, 2025 End: May 13, 2025 Team Status: Inactive Member Role/Relationship Status Dates Dr. Binh Mckee DO Attending Provider Active S tart: April 21, 2025 End: April 21, 2025 Dr. Binh Mckee DO Emergency Provider Active S tart: April 21, 2025 End: April 21, 2025 Dr. Mick Leung MD Primary Care Provider Active Start: April 21, 2025 End: April 21, 2025 Team Status: Inactive Member Role/Relationship Status Dates Dr. Mick Leung MD Primary Care Provider Active Start: May 31, 2025 End: May 31, 2025 Dr. Genesis Collazo MD Attending Provider Active Start: May 31, 2025 End: May 31, 2025 Dr. Genesis Collazo MD Referring Provider Active Start: May 31, 2025 End: May 31, 2025 Novelty Maker Relationship Specialty Start Date End Date Mick Leung MD PCP - General Family Medicine 09/09/24 Novelty Maker Relationship Specialty Start Date End Date Mick Leung MD PCP - General Family Medicine 09/09/24 Team Status: Active Member Role/Relationship Status Dates Dr. Mick Leung MD Primary care physician Activ e Team Status: Inactive Member Role/Relationship Status Dates Dr. Binh Mckee DO Attending physician Active Start: April 21, 2025 End: April 21, 2025 Dr. Binh Mckee DO Emergency Departmen t Physician Active Start: April 21, 2025 End: April 21, 2025 Dr. Mick Leung MD Primary care physician Activ e Start: April 21, 2025 End: April 21, 2025 Team Status: Inactive Member Role/Relationship Status Dates Dr. Mick Leung MD Primary care physician Activ e Start: May 13, 2025 End: May 13, 2025 Dr. Mick Leung MD Referring Provider Active Start: May 13, 2025 End: May 13, 2025 MORGAN Ordonez Attending physician Active Sta rt: May 13, 2025 End: May 13, 2025 Team Status: Inactive Member Role/Relationship Status Dates Dr. Mick Leung MD Primary care physician Activ e Start: May 13, 2025 End: May 13, 2025 Dr. Weston Gibbs MD Attending physician Active Start: May 13, 2025 End: May 13, 2025 Team Status: Inactive Member Role/Relationship Status Dates Dr. Mick Leung MD Primary care physician Activ e Start: May 31, 2025 End: May 31, 2025 Dr. Genesis Collazo MD Attending physician Active Start: May 31, 2025 End: May 31, 2025 Dr. Genesis Collazo MD Referring Provider Active Start: May 31, 2025 End: May 31, 2025 Team Status: Active Member Role/Relationship Status Dates Dr. Mick Leung MD Primary care physician Activ e Start: July 08, 2025 MORGAN Ordonez Attending physician Active Sta rt: July 08, 2025 MORGAN Ordonez Referring Provider Active Star t: July 08, 2025 Team Status: Inactive Member Role/Relationship Status Dates Dr. Mick Leung MD Primary care physician Activ e Start: July 22, 2025 End: July 22, 2025 Dr. Mick Leung MD Referring Provider Active Start: July 22, 2025 End: July 22, 2025 MORGAN Ordonez Attending physician Active Sta rt: July 22, 2025 End: July 22, 2025 Team Status: Inactive Member Role/Relationship Status Dates Dr. Mick Leung MD Primary care physician Activ e Start: July 08, 2025 End: July 08, 2025 MORGAN Ordonez Attending physician Active Sta rt: July 08, 2025 End: July 08, 2025 MORGAN Ordonez Referring Provider Active Star t: July 08, 2025 End: July 08, 2025 <item> Privacy Markings (unrecogniz ed section and content) Section Author: Leia Duffy PROHIBITION ON REDISCLOSURE OF CONFIDENTIAL INFORMATION This notice accompanies a disclosure of information concerning a client made to you with the consent of such client. Scheduled Active and Recently Administ ered Medications (unrecognized section and content) Medication Order 08/21/2024 08/22/2024 08/23/2024 HYDROmorphone (DILAUDID) injection 1 mg (COMPLETED) 1 mg, Intravenous, ONCE, 1 dose, On 08/23/24 at 1815 1820 (Given - Provid er: Davy Chacon RN) HYDROmorphone (DILAUDID) injection 1 mg (COMPLETED) 1 mg, Intravenous, ONCE, 1 dose, On 08/23/24 at 1930 1920 (Given - Provid er: Davy Chacon RN) iohexol (OMNIPAQUE) 350 MG/ML injection 75 mL (COMPLETED) 75 mL, Intravenous, ONCE, 1 dose, On 08/23/24 at 1845, Extravasation Risk, Radiology Procedure 1805 (Given - Radiol ogy - Provider: Nicole Byers) Ondansetron 4mg/2ml (ZOFRAN) injection 4 mg (COMPLETED) 4 mg, Intravenous, ONCE, 1 dose, On Sat08/23/24 at 1815 1820 (Given - Provid er: Davy Chacon RN) Sodium chloride 0.9% IV solution 1,000 mL (COMPLETED) 1,000 mL, Intravenous, at 999 mL/hr, ONCE, 1 dose, On Sat08/23/24 at 1815 1821 ($$New Bag$$ - Provider: Davy Chacon RN)1921 (Stopped - Provider: Davy Chacon RN) Sodium chloride 0.9% IV solution 75 mL (COMPLETED) 75 mL, Intravenous, ONCE, 1 dose, On Sat08/23/24 at 1845, Radiology Procedure 1805 ($$New Bag$$ - Provider: Nicole Byers)2039 (Stopped - Provider: Davy Hernandez RN) Scheduled Medication Order 09/07/2024 09/08/2024 09/09/2024 Amoxicillin (AMOXIL) capsule 500 mg (COMPLETED) 500 mg, Oral, ONCE, 1 dose, On Sat09/09/24 at 2145 2132 (Given - Provid er: Tucker Shook RN) hydroCODone-acetaminophen (NORCO) 5-325 MG per tablet 1 tablet (COMPLETED) 1 tablet, Oral, ONCE, 1 dose, On Sat09/09/24 at 2015, Maximum dose of acetaminophen is 4000 mg from all sources in 24 hours. 1936 (Given - Provid er: Tucker Shook RN) Lidocaine-epinephrine 1%-1:[id number] injection 20 mL (COMPLETED) 20 mL, Other, ONCE, 1 dose, On Sat09/09/24 at 2245 2215 (Given - Provid er: Luisa Santoyo RN - Comment: given to provider) Scheduled Medication Order 10/29/2024 10/30/2024 10/31/2024 hydroCODone-acetaminophen (NORCO) 5-325 MG per tablet 1 Each Oral, SEE ADMIN INSTRUCTIONS, Starting on 10/31/24 at 2000, Until 10/31/24 at 2250, Provide patient with 4 pack of Acetaminophen/Hydrocodone 325-5 mg, take 1 or 2 tabs by mouth every 4 hours as needed for pain. Nursing to document as GIVEN on the JAN and include comment of patient receipt of the 4 pack. 2045 (Given - Provid er: Lili Lisa RN - Comment: handed to pt with discharge instructions, photocopy placed in med rec.) Ketorolac (TORADOL) injection 30 mg (COMPLETED) 30 mg, Intramuscular, ONCE, 1 dose, On 10/31/24 at 1999 2001 (Given - Provid er: Ilda Tapia, [place]RI[place]) methylPREDNISolone sodium succinate (SOLU-MEDROL) injection 125 mg (COMPLETED) 125 mg, Intramuscular, ONCE, 1 dose, On 10/31/24 at 1999 2001 (Given - Provid er: Ilda Tapia RN) Scheduled Medication Order 04/28/2025 04/29/2025 04/30/2025 Gabapentin (NEURONTIN) capsule 600 mg (COMPLETED) 600 mg, Oral, ONCE, 1 dose, On Sat04/30/25 at 0200 0148 (Given - Provid er: Brian Solis RN) predniSONE (DELTASONE) tablet 60 mg (COMPLETED) 60 mg, Oral, ONCE, 1 dose, On Sat04/30/25 at 0200 0148 (Given - Provid er: Brian Solis RN) Scheduled Medication Order 06/19/2025 06/20/2025 06/21/2025 HYDROmorphone (DILAUDID) injection 1 mg (COMPLETED) 1 mg, Intravenous, ONCE, 1 dose, On Sat06/21/25 at 1045 1040 (Given - Provid er: Sandrita Ferris RN) HYDROmorphone (DILAUDID) injection 1 mg (COMPLETED) 1 mg, Intravenous, ONCE, 1 dose, On Sat06/21/25 at 1200 1150 (Given - Provid er: Rubi Byers RN) Ondansetron 4mg/2ml (ZOFRAN) injection 4 mg (COMPLETED) 4 mg, Intravenous, ONCE, 1 dose, On Sat06/21/25 at 1045 1040 (Given - Provid er: Sandrita Ferris RN) Sodium chloride 0.9% IV solution 500 mL (COMPLETED) 500 mL, Intravenous, ONCE, 1 dose, On Sat06/21/25 at 1045 1039 ($$New Bag$$ - Provider: Sandrita Ferris RN)1114 (Stopped - Provider: Rubi Byers RN) Scheduled Medication Order 06/20/2025 06/21/2025 06/22/2025 HYDROmorphone (DILAUDID) injection 1 mg (COMPLETED) 1 mg, Intravenous, ONCE, 1 dose, On Sat06/22/25 at 0015 2357 (Given - Provider: Vasyl Altamirano RN) HYDROmorphone (DILAUDID) injection 1 mg (COMPLETED) 1 mg, Intravenous, ONCE, 1 dose, On Sat06/22/25 at 0100 0043 (Given - Provid er: Vasyl Altamirano RN) Ondansetron 4mg/2ml (ZOFRAN) injection 4 mg (COMPLETED) 4 mg, Intravenous, ONCE, 1 dose, On Sat06/22/25 at 0015 2356 (Given - Provider: Vasyl Altamirano RN) Goals (unrecognized section and content) Goals may be documented in a n alternate section FOR RECORDS PERTAINING TO PATIENTS WHO ARE OR HAVE BEEN ENROLLED IN A CHEMICAL DEPENDENCY/SUBSTANCEABUSE PROGRAM, SOME INFORMATION MAY BE OMITTED. This clinical summary was aggregated from multiple sources. Caution should be exercised in using it in the provision of clinical care. This summary normalizes information from multiple sources, and as a consequence, information in this document may materially change the coding, format and clinical context of patient data. In addition, data may be omitted in some cases. CLINICAL DECISIONS SHOULD BE BASED ON THE PRIMARY CLINICAL RECORDS. [employer] provides no warranty or guarantee of the accuracy or completeness of information in this document.
[2025-10-07] MEDS: 0.9% Saline Lock 10 ML Syringe IV ×2 (18:41→21:15)
[2025-10-07] MEDS: 0.9% Normal Saline (250mL Bag) 250 ML 15 ML IV (18:41)
[2025-10-07] MEDS: Cefazolin 2 GM in 0.9% Normal Saline (100mL Bag) 100 ML IV (21:07)
[2025-10-07] MEDS: Senna/Docusate Sodium 1 Tablet 2 TABLET PO (21:08)
[2025-10-08 01:17] VITALS: BP 125/65; PULSE 110; RESP 18; TEMP 36.7; O2SAT 95
[2025-10-08 05:17] VITALS: BP 144/74; PULSE 110; RESP 16; TEMP 36.7; O2SAT 95
[2025-10-08] MEDS: 0.9% Saline Lock 10 ML Syringe IV ×2 (05:35→10:33)
[2025-10-08] MEDS: Cefazolin 2 GM in 0.9% Normal Saline (100mL Bag) 100 ML IV (05:36)
[2025-10-08 06:47] LABS: Hematocrit 44.0 % (40-54); Hemoglobin 15.1 g/dL (13.0-16.5); Immature Granulocytes Count 0.140 X10^3/uL (0.0-0.0); Mean Corp Hgb Conc 34.3 g/dL (32-36); Mean Corpuscular Volume 95.0 fL (80-94); Mean Platelet Vol. 11.9 fl (6.2-12.0); NRBC Flagged by Analyzer 0 % (0-5); POSITIVE DIFFERENTIAL YES; Platelet Count 222 K/mm3 (150-450); RBC Distribution Width CV 12.3 % (11.6-14.6); RBC Distribution Width SD 43.5 fl (35.1-43.9); Red Blood Count 4.63 M/mm3 (4.6-6.2); White Blood Count 23.9 K/mm3 (4.4-11.0)
[2025-10-08 07:06] LABS: Anion Gap 9 (5-15); BUN 11 mg/dL (4-19); BUN/Creat Ratio 11.5 RATIO (10-20); Calcium,Total 9.1 mg/dL (7.6-11.0); Carbon Dioxide 20.8 mmol/L (21.0-32.0); Chloride 106 mmol/L (98-108); Estimated Creatinine Clearance 116.60 ml/min (50-250); Glucose 166 mg/dL (70-99); Potassium 4.4 mmol/L (3.3-5.1)
[2025-10-08 07:25] LABS: Differential Indicated SCAN CRITERIA MET
--- NOTE | 2025-10-08 07:45 | RAD_ITS ---
PROCEDURE: CERV SPINE 2 OR 3 VIEWS 10/08/2025 REASON FOR EXAM: S/P CERVICAL FUSION TECHNIQUE: Procedure Code: RADSPCL Modality: DX Procedure: CERV SPINE 2 OR 3 VIEWS COMPARISON: Prior examination dated May 13, 2025. FINDINGS: The patient is status post anterior fusion and disc placement at the C5-C6 and C6-C7 levels. RAD/Cerv Spine 2 or 3 Views IMPRESSION: Status post anterior fusion with screw and plate fixation device at the C5-C6 a nd C6-C7 levels with prosthetic disc. Disclaimer: Reading Location: [place] [id number]
--- NOTE | 2025-10-08 08:02 | PN.HOSP_ITS ---
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 Compa Miranda. The hospitalist service was consulted to assist with managing patient medical comorbidities Objective Data Objective Data Vital Signs: Vital Signs Temp Pulse Resp BP Pulse Ox O2 Del Method O2 Flow Rate 98.1 F 110 H 16 144/74 H 95 Room Air 4 10/08/25 05:17 10/08/25 05:17 10/08/25 05:17 10/08/25 05:17 10/08/25 05:17 10/08/25 05:17 10/07/25 17:18 Oxygen Flow Rate (L/min) 4 Oxygen Delivery Method Room Air Weight: 103 kg Body Mass Index (BMI) 34.5 Intake & Output: Intake and Output for Last 24 Hours 10/06/25 10/07/25 10/08/25 23:59 23:59 23:59 Intake Total 1304.5 / 1304.5 290.25 / 290.25 Output Total Balance 1274.5 / 1274.5 290.25 / 290.25 Lab / Micro Data 10/08/25 06:30 10/08/25 06:30 Labs: Laboratory Results - last 24 hr 10/07/25 11:36: POC Glucose 87 10/08/25 06:30: WBC 23.9 H, RBC 4.63, Hgb 15.1, Hct 44.0, MCV 95.0 H, MCH 32.6 H , MCHC 34.3, RDW Std Deviation 43.5, RDW Coeff of Cassi 12.3, Plt Count 222, MPV 11.9, Immature Gran % (Auto) 0.600, Neut % (Auto) 89.5 H, Lymph % (Auto) 5.9 L, [place] % (Auto) 3.9, Eos % (Auto) 0.0, Baso % (Auto) 0.1, Absolute Neuts (auto) 21.4 H, Absolute Lymphs (auto) 1.42, Nucleated RBC % 0, Sodium 136, Potassium 4.4, Chloride 106, Carbon Dioxide 20.8 L, Anion Gap 9, BUN 11, Creatinine 0.96, Estim Creat Clear Calc 116.60, Est GFR (MDRD) Non-Af 101, BUN/Creatinine Ratio 11.5, Glucose 166 H, Calcium 9.1 Micro: Microbiology 09/27/25 07:07 Swab (Method) Nasal Screen MRSA/MSSA - Final Physical Exam Narrative GENERAL: cooperative HEENT: Atraumatic; normocephalic, neck in a brace EYES; Anicteric, Normal Conjunctiva NECK; supple, normal thyroid, RESPIRATORY: Diminished to auscultation CARDIOVASCULAR: Regular S1 S2, GI: soft, normoactive bowel sounds, : No Renal angle tenderness; EXTREMITIES: No edema, no clubbing, MUSCULOSKELETAL: no muscle wasting NEURO: Awake; no lateralizing signs. 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 Compa Miranda. The hospitalist service was consulted to assist with managing patient medical comorbidities 1. S/p C5-[address] Compa Miranda on 10/07/2025 on account of C5-7 disc degeneration with stenosis and radiculomyelopathy postoperative orders regarding pain management PT OT DVT prophylaxis defer to primary service 2. Bipolar disorder ? Home meds?lithium, continue continue 3. Class I obesity with BMI of 34.5 ? Complicating care weight loss advised 4. Leukocytosis ? Possibly reactive will follow 5. Hyperglycemia ? Patient does not have any known history of diabetes ordered hemoglobin A1c 6. Tobacco dependence ? Counseled on cessation, offered nicotine patch for tobacco cravings 7. DVT prophylaxis ? Defer to primary service Time spent in the patient's overall evaluation,decision-making process, review of diagnostic data, adjustment of management, discussion with other providers, nursing nursing and ancillary staff involved in patient's care documentation, 35 Minutes Charges/Coding Visit Charges Inpatient E&M: 86901 Subs Hosp L2
--- NOTE | 2025-10-08 08:30 | PCM.PN.ORT ---
Subjective Subjective Postop day 1 C5-7 ACDF. The patient was seen today at the bedside. He reports that his pain has been well-controlled. He has been up and walking. He denies any significant dysphagia. His dressing has not needed to be changed. Objective Data Objective Data Vital Signs: Vital Signs Temp Pulse Resp BP Pulse Ox O2 Del Method O2 Flow Rate 98.1 F 110 H 16 144/74 H 95 Room Air 4 10/08/25 05:17 10/08/25 05:17 10/08/25 05:17 10/08/25 05:17 10/08/25 05:17 10/08/25 05:17 10/07/25 17:18 Oxygen Flow Rate (L/min) 4 Oxygen Delivery Method Room Air Weight: 227 lb 1.218 oz Body Mass Index (BMI) 34.5 Intake & Output: Intake and Output for Last 24 Hours 10/06/25 10/07/25 10/08/25 23:59 23:59 23:59 Intake Total 1304.5 / 1304.5 290.25 / 290.25 Output Total Balance 1274.5 / 1274.5 290.25 / 290.25 Lab / Micro Data 10/08/25 06:30 10/08/25 06:30 Labs: Laboratory Results - last 24 hr 10/07/25 11:36: POC Glucose 87 10/08/25 06:30: WBC 23.9 H, RBC 4.63, Hgb 15.1, Hct 44.0, MCV 95.0 H, MCH 32.6 H, MCHC 34.3, RDW Std Deviation 43.5, RDW Coeff of Cassi 12.3, Plt Count 222, MPV 11.9, Immature Gran % (Auto) 0.600, Neut % (Auto) 89.5 H, Lymph % (Auto) 5.9 L, [place] % (Auto) 3.9, Eos % (Auto) 0.0, Baso % (Auto) 0.1, Absolute Neuts (auto) 21.4 H, Absolute Lymphs (auto) 1.42, Nucleated RBC % 0, Sodium 136, Potassium 4.4, Chloride 106, Carbon Dioxide 20.8 L, Anion Gap 9, BUN 11, Creatinine 0.96, Estim Creat Clear Calc 116.60, Est GFR (MDRD) Non-Af 101, BUN/Creatinine Ratio 11.5, Glucose 166 H, Calcium 9.1 Micro: Microbiology 09/27/25 07:07 Swab (Method) Nasal Screen MRSA/MSSA - Final Physical Exam Narrative Neurological examination of the upper extremity shows 5X5 power. Normal sensation across all dermatomes. Drain removed. New Tegaderm and gauze was applied over the incision. Cervical collar was reapplied. Const alert, oriented x3 and no apparent distress Assessment & Plan Assessment/Plan (1) Status post cervical spinal fusion: PLAN: Plan Postop day 1 C5-7 ACDF. Obtained reviewed x-rays today which show hardware and bone graft in good position. Patient is doing well postoperatively with pain controlled. PT/OT will work with the patient today. Anticipate a home discharge later today. Home medications include hydrocodone?acetaminophen, meloxicam, methocarbamol, senna. OARRS reviewed. Reviewed and educated on the use of the incentive spirometer. Reviewed and educated on the proper wear of the cervical collar. Reviewed restrictions of no bending, lifting, twisting. He will follow-up with us in 2 weeks in the clinic. Sooner if needed. Patient is in agreement to the plan.
[2025-10-08] MEDS: Senna/Docusate Sodium 1 Tablet 2 TABLET PO (09:09)
--- NOTE | 2025-10-08 09:41 | CASEMGMT ---
Social Work SW met w/pt, pt's significant other in the room. SW reviewed prior level of function and anticipated discharge plan. PCP: Lilo Storey Specialists: Dr. Hammer--nerve/pain doctor who implanted pt's nerve stimulater, Dr. Miranda--orthopedics, Dr. Collazo--psychiatry Preferred Pharmacy: [facility] in [place] Insurance/Prescription Benefit: [place] Medicare and Medicaid Living Will/HCPOA: Pt has not completed, not interested at this time. Pt states he has spoken w/his family, and his sister would be his decision maker if needed. Pt does have three children, the oldest is 18. SW did explain the legal order of decision makers in [place] if he was not able to make decisions for himself. Pt does state understanding, but still does not want to complete the documents. LNOK: 3 children, sister, significant other Living Arrangements/Prior level of function: Pt lives home w/significant other, independent with ADLs. No DME Transportation: Pt normally does drive, significant other will drive pt home from hospital DME: None needed other than nerve stimulator and neck brace HHC/SNF: No history of either MH: Pt has bipolar, on medication, follows w/Dr. Collazo, denies any additional MH needs at this time Substance Use: Pt reports no history of this, no concerns PLAN: Pt plans to return home at discharge. No homegoing needs anticipated. SW remains available should any needs arise. OLU King
[2025-10-08 12:04] VITALS: BP 133/80; PULSE 106; RESP 16; TEMP 36.5; O2SAT 93
--- NOTE | 2025-10-08 12:55 | DCINST_ITS ---
Discharge Instructions DC O2, CPAP, BIPAP needs Home O2 Discharge instructions: No Follow Up Care Test Results: Test results from this visit will be discussed in further detail at your follow- up appointment, if applicable. Discharge Plan Admission Admit Date/Time: 10/07/25 15:22 Attending Provider: Benito Aguilera Primary Care Provider: Lilo Storey Consulting Providers: Garland Durant; Compa Miranda Instructions Patient Instructions: Cervical Fusion Dc Additional Instructions / Restrictions: Keep Tegaderm and gauze clean and dry. After 5 days remove the Tegaderm and gauze and cover incision with a Band-Aid. Replace Band-Aid daily thereafter. Wear cervical collar full-time for the first 2 weeks. Eat soft solid foods as needed for dysphagia. Sleep in a recliner to help with swelling. No bending, lifting, twisting. Follow-up in clinic in 2 weeks. Discharge Orders/Prescriptions Prescriptions: New acetaminophen 500 mg Tablet 500 mg PO Q8 Qty: 30 0RF hydrocodone-acetaminophen 5-325 mg Tablet 1 tab PO Q6H PRN (Reason: pain) 7 Days Qty: 28 0RF meloxicam 15 mg Tablet 15 mg PO DAILY Qty: 30 0RF methocarbamol 500 mg Tablet 750 mg PO TID PRN (Reason: pain/spasms) Qty: 30 0RF sennosides-docusate sodium [Stimulant Laxative Plus] 8.6-50 mg Tablet 2 tab PO BID PRN (Reason: constipation) Qty: 14 0RF Continued lithium carbonate 300 mg capsule 300 mg PO TID gabapentin 600 mg tablet 600 mg PO BID Qty: 60 0RF Discontinued cyclobenzaprine 10 mg tablet 10 mg PO TID PRN (Reason: muscle spasm) Qty: 30 0RF Referrals / Follow Up: Lilo Storey MD [Primary Care Provider, Internal Medicine] Disposition Disposition (needs filled in before D/C Order can be placed): Home, Self Care
== END 2025-10-08 13:52 | disposition home or self-care (01) ==
LOC: MS3 17:51 → SDC 10-08 11:06 → MS3 10-08 11:07
PROVIDERS: Anesthesiology; Student in an Organized Health Care Education/Training Program; Admitting Provider Orthopaedic Surgery Orthopaedic Surgery of the Spine; PCP Student in an Organized Health Care Education/Training Program; Referring Provider Orthopaedic Surgery Orthopaedic Surgery of the Spine; Visit Provider Internal Medicine
PROC: (CPT 22551; principal; 2025-10-07 12:45)
DX: M50.022 Cervical disc disorder at C5-C6 level with myelopathy (principal); F31.9 Bipolar disorder, unspecified; F17.210 Nicotine dependence, cigarettes, uncomplicated; M50.122 Cervical disc disorder at C5-C6 level with radiculopathy; M43.12 Spondylolisthesis, cervical region; M48.02 Spinal stenosis, cervical region; Z79.899 Other long term (current) drug therapy; G47.30 Sleep apnea, unspecified; G89.29 Other chronic pain; E66.811 Obesity, class 1; Z68.34 Body mass index [BMI] 34.0-34.9, adult; R73.9 Hyperglycemia, unspecified
CPT/HCPCS: 22551; 22552; 22845; 20931; 00670; 36415; 72040; 76000; 80048; 82962; 83036; 83735; 85025; 86850; 86900; 86901; 87081; 93005; 94667; 94668; 96365; 96366; 96375; 96376; 97162; 99221; 99406; C1713; A4216; G0378; J2405; J3475